=== PATIENT | male | born 1945 | race Caucasian/White ===

== ENCOUNTER 2023-01-16 20:00 | Outpatient (OUT) | payer MEDICARE, OTHER, SELFPAY | END 2023-01-16 20:01 | LOC: SLEEP 01-17 09:09 | PROVIDERS: PCP Internal Medicine; Visit Provider Internal Medicine | DX: G47.33 Obstructive sleep apnea (adult) (pediatric) (principal); G47.11 Idiopathic hypersomnia with long sleep time | CPT/HCPCS: 95811 ==

== ENCOUNTER 2023-07-12 15:40 | Outpatient (OUT) | payer MEDICARE, OTHER, SELFPAY ==
[2023-07-12 16:08] LABS: Estimated Average Glucose 151 mg/dL; Glycohemoglobin A1C 6.9 % (4.5-6.2)
== END 2023-07-12 15:41 | disposition home or self-care (01) ==
LOC: LAB 15:43
PROVIDERS: PCP Internal Medicine; Visit Provider Internal Medicine
DX: E11.65 Type 2 diabetes mellitus with hyperglycemia (principal)
CPT/HCPCS: 36415; 83036

== ENCOUNTER 2023-12-26 10:45 | Outpatient (OUT) | payer MEDICARE, OTHER, SELFPAY ==
[2023-12-26 11:32] LABS: Chol HDL Ratio 3.2; Cholesterol 179 mg/dL (<=200); HDL Cholesterol 56 mg/dL (40-60); Triglycerides 155 mg/dL (<=150)
[2023-12-26 11:56] LABS: Estimated Average Glucose 143 mg/dL; Glycohemoglobin A1C 6.6 % (4.5-6.2)
[2023-12-26 13:43] LABS: Microalbumin Urine Random <1.3 mg/dL (<=30.0)
== END 2023-12-26 10:46 | disposition home or self-care (01) ==
LOC: LAB 10:47
PROVIDERS: PCP Internal Medicine; Visit Provider Internal Medicine
DX: E11.65 Type 2 diabetes mellitus with hyperglycemia (principal); E78.00 Pure hypercholesterolemia, unspecified
CPT/HCPCS: 36415; 80061; 82043; 83036

== ENCOUNTER 2024-01-01 13:52 | Outpatient (OUT) | payer MEDICARE, OTHER, SELFPAY ==
--- NOTE | 2024-01-01 13:55 | CT_ITS ---
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 Axial, Coronal, and Sagittal images. Dose reduction techniques were achieved by using automated exposure control and/or adjustment of mA and/or kV according to patient size and/or use of iterative reconstruction technique. FINDINGS: LUNGS: Surgical changes from right upper lobe lobectomy. 4 mm nodule within right middle lobe, decreased in size. 6 mm nodule within lateral left costophrenic angle which has slightly increased in size. Stable mild scarring and atelectasis. PLEURA: No mass, effusion, or pneumothorax. VASCULATURE: No abnormality. NEDA: Stable right hilar surgical changes and calcified lymph nodes. MEDIASTINUM: No mass or adenopathy. CARDIAC: No enlargement, pericardial thickening, or significant calcification. Coronary artery calcifications: Mild. AORTA: No aneurysm or dissection. CHEST WALL: No mass or axillary adenopathy. BONES: No bone lesion or fracture. LIMITED ABDOMEN: No suspicious findings Limited images of the upper abdomen. OTHER: Negative. CT/CT chest wo con IMPRESSION: 1. Stable surgical changes from right upper lobe lobectomy. 2. Slight increase in size of a 6 mm nodule within left lower lobe lateral costophrenic angle (previously 4.5 mm). Follow-up CT chest in 6 months is recommended to document stability. 3. Interval decrease in size of a 4 mm nodule within right middle lobe. 4. Stable chronic changes and scarring. No appreciable acute infiltrates or lymphadenopathy. Electronically authenticated by: ARTURO JJ Date: 01/02/2024 09:55
== END 2024-01-01 13:53 | disposition home or self-care (01) ==
LOC: CT 13:52
PROVIDERS: PCP Internal Medicine; Visit Provider Internal Medicine
DX: C34.91 Malignant neoplasm of unspecified part of right bronchus or lung (principal); R91.8 Other nonspecific abnormal finding of lung field
CPT/HCPCS: 71250

== ENCOUNTER 2024-04-23 16:08 | Outpatient (OUT) | payer MEDICARE, OTHER, SELFPAY ==
--- OUTSIDE RECORDS SUMMARY | 2024-04-23 16:33 | XMS_ITS | CCD ---
Author Organization [facility] Care Team Providers Care Ophthalmic Dispenser Name Role Phone Tab Barfield DO Primary Care Provider SAMSA ., MELANIE Admitting Unavailable SAMSA ., MELANIE Attending Unavailable TYRESE, DR HOOD Primary Care Unavailable PARVIZ, DR ARTURO Quinn Consulting Unavailable SAMSA ., MELANIE Consulting Unavailable SAMSA ., MELANIE Admitting Unavailable SAMSA ., MELANIE Attending Unavailable DR TAB BARFIELD Primary Care Unavailable SAMSA ., MELANIE Consulting Unavailable SAMSA ., MELANIE Admitting Unavailable SAMSA ., MELANIE Attending Unavailable TYRESE, DR HOOD Primary Care Unavailable SAMSA ., MELANIE Consulting Unavailable SAMSA ., MELANIE Admitting Unavailable SAMSA ., MELANIE Attending Unavailable TYRESE, DR HOOD Primary Care Unavailable SAMSA ., MELANIE Consulting Unavailable SAMSA ., MELANIE Admitting Unavailable SAMSA ., MELANIE Attending Unavailable TYRESE, DR HOOD Primary Care Unavailable SAMSA ., MELANIE Consulting Unavailable DR TAB BARFIELD Primary Care Unavailable JOSÉ GODINEZ Consulting Unavailab mike RAMIN ., CHAKA Admitting Unavailable RAMIN ., CHAKA Attending Unavailable NEWBRITTANI, AZALEA Consulting Unavailable SAMSA ., MELANIE Admitting Unavailable SAMSA ., MELANIE Attending Unavailable DR TAB BARFIELD Primary Care Unavailable SAMSA ., MELANIE Consulting Unavailable SAMSA ., MELANIE Admitting Unavailable SAMSA ., MELANIE Attending Unavailable TYRESE, DR HOOD Primary Care Unavailable Tab Barfield Unavailable Tab Barfield DO Primary Care Provider Samsa DOMelanie P Unavailable DO Tab Barfield Primary Care Provider MD Jamar Wray Attending Provider [phone] Jamar Wray Admitting Unavailable Jamar Wray Attending Unavailable Tab Barfield Primary Care Unavailable Tab Barfield DO Primary Care Provider GABE BANERJEE Attending Unavailable TAB BARFIELD Primary Care Unavailable TAB BARFIELD Primary Care Unavailable TAB BARFIELD Primary Care Unavailable Allergies Allergy Classification Reported Allergen(s) Allergy Type Date of Onset Reaction(s) Facility (10 sources) Penicillins; Translations: [PENICILLINS] Drug Allergy 12-09-19 18 Swelling [facility] (1 source) Penicillins Drug allergy (disorder) 07-11-20 13 [facility] (3 sources) Penicillin Drug Allergy Unknown [employer] Other (16 sources) Penicillins (Antibiotic) Drug allergy Unknown [employer] Other (16 sources) Substance with penicillin structure and antibacterial mechanism of action (substance) Drug allergy Unknown [employer] Other (3 sources) patient allergy list reviewed by nurse or physicia Propensity to adverse reactions 12-20-19 Comment:Done [employer] Other (3 sources) Allergies Reconciled Propensity to adverse reactions Unknown [employer] Other (1 source) Penicillins Drug allergy (disorder) 06-22-20 [facility] Medications Current Medications Medication Drug Class(es) Dates Sig (Normalized) Sig (Original) [id number] 200 actuat albuterol 0.09 mg/actuat metered dose inhaler (8 sources) beta2-Adrenergic Agonist Start: 05-06-2021 take 2 puff(s) by inhalation every six hours as needed albuterol HFA (PROVENTIL HFA, VENTOLIN HFA) 90 mcg/actuation inhaler Inhale 2 Puffs as instructed every 6 hours as needed. 05/06/2021 Active Comment on above: Inhale 2 Puffs as in structed every 6 hours as needed. albuterol 0.833 mg/ml / ipratropium bromide 0.167 mg/ml inhalation solution (8 sources) Anticholinergic, beta2-Adrenergic Agonist Start: 02-25-2021 ipratropium-albu terol (DUONEB) 0.5 mg-3 mg(2.5 mg base)/3 mL nebu Inhale 3 mL as instructed. 02/25/2021 Active Comment on above: Inhale 3 mL as instr ucted. Albuterol-Budesonid e (1 source) Start: 12-22-2023 Albuterol-Budeso nide Active 2 INH INHALATION Four times daily 21.4 90 December 22, 2023 12:00am Needs 2 inhalers amLODIPine 5 mg oral tablet (20 sources) Dihydropyridine Calcium Channel Michael Start: 04-18-2017 End: 07-15-2021 take 5 mg by mouth once daily Amlodipine Active 5 MG PO Daily June 22, 2023 1:00am 24 hr buPROPion hydrochloride 150 mg extended release oral tablet (20 sources) Aminoketone Start: 12-21-2023 take 150 mg by mouth once daily in the morning Bupropion Hcl Active 150 MG PO Every morning December 21, 2023 12:00am Start: 04-18-2017 End: 07-15-2021 take 300 mg by mouth once daily Bupropion Hcl Discontinued 300 MG PO Daily April 18, 2017 12:00am July 15, 2021 10:38am buPROPion HCl 15 0 MG 1 tablet every morning Orally Once a day Active Contour Test - (20 sources) Start: 12-12-2022 Contour Test - Use to test home BS qd In Vitro daily for 30 days December, Active diclofenac sodium 75 mg delayed release oral tablet (20 sources) Nonsteroidal Anti-inflammatory Drug Start: 12-21-2023 take 75 mg by mouth twice daily Diclofenac Sodium Active 75 MG PO Twice daily December 21, 2023 12:00am Start: 04-18-2017 End: 01-02-2019 take 150 mg by mouth once daily Diclofenac Sodium Disc ontinued 150 MG PO Daily April 18, 2017 12:00am January 02, 2019 2:24pm take 1 tablet by maikol th every twelve hours Diclofenac Sodium 75 MG 1 tablet with food or milk Orally Twice a day Active escitalopram 10 mg oral tablet (20 sources) Serotonin Reuptake Inhibitor Start: 03-01-2020 take 1 tablet by mouth once daily at bedtime escitalopram oxalate (LEXAPRO) 10 mg tablet Take 10 mg by mouth daily at bedtime. 03/01/2020 Active Comment on above: Take 10 mg by mouth daily at bedtime. Fish Oils (20 sources) Fish Oil Active Fluticasone Propion-Salmeterol (20 sources) Corticosteroid, beta2-Adrenergic Agonist Start: 06-22-2023 Fluticasone Propion-Salmeterol Active 1 INH INHALATION Twice daily June 22, 2023 1:00am Start: 06-22-2023 Fluticasone Pr opion-Salmeterol Active 1 INH INHALATION Twice daily June 22, 2023 12:00am Start: 12-20-2022 take 1 puff(s) by in halation twice daily Advair Diskus 500-50 MCG/ACT 1 puff Inhalation Twice a day December, Active Start: 11-27-2021 take 1 dose by mouth twice daily fluticasone-salmeterol (ADVAIR, WIXELA) 250-50 mcg/dose inhaler INHALE 1 DOSE BY MOUTH TWICE DAILY 11/27/2021 Active Start: 11-27-2021 take 1 dose by mouth twice daily fluticasone-salmeterol (ADVAIR, WIXELA) 250-50 mcg/dose inhaler INHALE 1 DOSE BY MOUTH TWICE DAILY 0 11/27/2021 Active Comment on above: INHALE 1 DOSE BY MAIKOL TH TWICE DAILY levoFLOXacin 500 mg oral tablet (7 sources) Quinolone Antimicrobial Start: 06-20-20 take 1 tablet by mouth every twenty-four hours levoFLOXacin 500 MG 1 tablet Orally Once a day for 7 days Jun, Active losartan potassium 100 mg oral tablet (20 sources) Angiotensin 2 Receptor Michael Start: 04-18-20 losartan (COZAAR) 100 mg tablet 09/17/2017 Active metFORMIN hydrochloride 500 mg oral tablet (14 sources) Biguanide Start: 05-09-20 23 take 500 mg by mouth once daily Metformin Active 500 MG PO Daily June 22, 2023 1:00am mirtazapine 7.5 mg oral tablet (20 sources) Start: 03-25-20 20 take 1 tablet by mouth once daily at bedtime Mirtazapine (REMERON) 7.5 mg tablet Take 7.5 mg by mouth daily at bedtime. 03/25/2020 Active Comment on above: Take 7.5 mg by mouth daily at bedtime. montelukast 10 mg oral tablet (20 sources) Leukotriene Receptor Antagonist Start: 07-15-20 End: 11-30-19 montelukast (SINGULAIR) 10 mg tablet 03/05/2022 Active Multivitamin preparation (20 sources) Start: 04-18-20 take 1 tablet by mouth once daily Multivitamin Active 1 TAB PO Daily April 18, 2017 12:00am Start: 04-18-2017 take 1 tablet by maikol th once daily Multivitamin Active 1 TAB PO Daily April 17, 2017 11:00pm Multivitamin Act [place] perflutren lipid microspheres 1.3 mL in NaCl (PF) 0.9% 10 mL injection (DEFINITY) (5 sources) Start: 01-26-2023 End: 04-26-2024 perflutren lipid microspheres 1.3 mL in NaCl (PF) 0.9% 10 mL injection (DEFINITY) pravastatin sodium 80 mg oral tablet (20 sources) HMG-CoA Reductase Inhibitor Start: 04-18-2017 pravastatin (PRAVACHOL) 80 mg tablet 11/28/2017 Active take 1 tablet by maikol th every twenty-four hours Pravastatin Sodium 20 MG 1 tablet Orally Once a day for 30 day(s) Active semaglutide 3 mg oral tablet (4 sources) Start: 05-02-2023 Rybelsus 3 MG 1 tablet at least 30 minutes before first food, beverage or other oral medicine of the day Orally Once a day for 30 days Apr, Active 125 ml sodium chloride 9 mg/ml prefilled syringe (5 sources) Start: 01-26-2023 End: 04-26-2024 sodium chloride 0.9 % (flush) 10 mL (BD POSIFLUSH) tamsulosin hydrochloride 0.4 mg oral capsule (20 sources) alpha-Adrenergic Michael Start: 01-10-2023 tamsulosin (FLOMAX) 0.4 mg 01/10/2023 Active Start: 07-15-2021 take 0.4 mg by mouth once daily Tamsulosin Active 0.4 MG PO Daily July 15, 2021 1:00am Start: 11-21-2017 End: 04-05-2022 tamsulosin ER (FLOMAX) 0.4 m g cp24 twice daily. 0 11/21/2017 04/05/2022 Discontinued (Discontinued by Patient) Comment on above: twice daily. ubidecarenone 75 mg oral capsule (1 source) Start: 12-22-2023 Coenzyme Q10 (Ultra Coq10) 75 mg capsule Active 75 MG PO Daily December 22, 2023 12:00am Completed/Discontinued Medications Medication Drug Class(es) Dates Sig (Normalized) Sig (Original) Chlorpheniramine (3 sources) Histamine-1 Receptor Antagonist chlorpheniramine maleate (CHLOR-TABLET ORAL) Take by mouth. 0 Active Comment on above: Take by mouth. multivitamin tablet (3 sources) take 1 tablet by mouth once daily multivitamin tablet Take 1 tablet by mouth once daily. 0 Active Comment on above: Take 1 tablet by maikol once daily. [place] 6-Kwc-Zyi-Fish Oil (Fish Oil) 1,000 mg (120 mg-180 mg) Capsule (2 sources) Start: 04-18-2017 End: 01-02-2019 [place] 6-Zjx-Csi-Fish Oil (Fish Oil) 1,000 mg (120 mg-180 mg) Capsule Discontinued 1200 MG PO Daily April 18, 2017 12:00am January 02, 2019 2:24pm Start: 04-18-2017 End: 01-02-2019 [place] 0-Yiq-Aja-Fish Oil (Fi sh Oil) 1,000 mg (120 mg-180 mg) Capsule Discontinued 1200 MG PO Daily April 17, 2017 11:00pm January 02, 2019 1:24pm pramipexole dihydrochloride 0.125 mg oral tablet (5 sources) Nonergot Dopamine Agonist Start: 03-16-2023 End: 04-08-2024 take 1 tablet by mouth 2 hour(s) before bedtime pramipexole (MIRAPEX) 0.125 mg tablet TAKE 1 TABLET BY MOUTH 2 HOURS BEFORE BEDTIME 03/16/2023 04/08/2024 Discontinued Comment on above: TAKE 1 TABLET BY MAIKOL 2 HOURS BEFORE BEDTIME Turmeric extract (5 sources) Start: 06-22-2023 End: 12-21-2023 take 400 mg by mouth once daily Turmeric Discontinued 400 MG PO Daily June 22, 2023 1:00am December 21, 2023 9:07am Start: 06-22-2023 take 400 mg by mouth once daily Turmeric Active 400 MG PO Daily June 22, 2023 12:00am Start: 04-18-2017 End: 01-02-2019 Turmeric (Bulk) (Curcumin) 9 5 % Powder Discontinued 1 TAB MISCELLANE Daily April 18, 2017 12:00am January 02, 2019 2:24pm Start: 04-18-2017 End: 01-02-2019 Turmeric (Bulk) (Curcumin) 9 5 % Powder Discontinued 1 TAB MISCELLANE Daily April 17, 2017 11:00pm January 02, 2019 1:24pm End: 04-05-2022 TURMERIC ORAL Take by mouth. 0 04/05/2022 Discontinued (Discontinued by Patient) Comment on above: Take by mouth. Problems Active Problems Problem Classification Problem Date Documented Da te Episodic/Chronic Acute posthemorrhagic anemia (3 sources) Acute posthemorrhagic anemia; Translations: [Acute posthemorrhagic anemia] Episodic Anal and rectal conditions (20 sources) Rectal polyp; Translations: [Rectal polyp] Episodic Asthma (6 sources) Uncomplicated mild persistent asthma; Translations: [Mild persistent asthma, uncomplicated] Chronic Cancer of bronchus; lung (20 sources) Malignant neoplasm of upper lobe, bronchus or lung; Translations: [Malignant neoplasm of upper lobe, right bronchus or lung] Onset: 1 Chronic Cancer of prostate (20 sources) Malignant tumor of prostate; Translations: [Malignant neoplasm of prostate] Onset: 8 Chronic Cancer of rectum and anus (20 sources) Malignant tumor of rectum; Translations: [Malignant neoplasm of rectum] Onset: 7 Chronic Chronic kidney disease (20 sources) Chronic kidney disease stage 3A ; Translations: [Stage 3a chronic kidney disease] Onset: 9 12-21-2023 Chronic Chronic obstructive pulmonary disease and bronchiectasis (20 sources) Mucopurulent chronic bronchitis; Translations: [Mucopurulent chronic bronchitis] Onset: 9 Chronic Deficiency and other anemia (20 sources) Anemia due to chronic blood loss; Translations: [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 Deficiency and other anemia (4 sources) Iron deficiency anemia secondary to blood loss (chronic); Translations: [IRON DEFIC ANEMIA SEC BLD LOSS CHRN] Onset: 2 Chronic Diabetes mellitus with complications (20 sources) Type 2 diabetes mellitus; Translations: [Type 2 diabetes mellitus with hyperglycemia] Onset: 0 Chronic Diabetes mellitus without complication (3 sources) Type 2 diabetes mellitus without complication; Translations: [Diabetes mellitus without mention of complication, type II or unspecified type, not stated as uncontrolled] Chronic Disorders of lipid metabolism (8 sources) Mixed hyperlipidemia; Translations: [Mixed hyperlipidemia] Onset: 5 12-21-2023 Chronic Esophageal disorders (20 sources) Stricture of esophagus; Translations: [Esophageal obstruction] Chronic Esophageal disorders (3 sources) Esophageal disorders; Translations: [Gastro-esophageal reflux disease with esophagitis, without bleeding] Essential hypertension (20 sources) Essential hypertension; Translations: [Essential (primary) hypertension] Onset: 4 Chronic Gastrointestinal hemorrhage (3 sources) Hemorrhage of rectum and anus; Translations: [Hemorrhage of anus and rectum] Episodic Hyperplasia of prostate (20 sources) Nocturia due to benign prostatic hypertrophy; Translations: [Benign prostatic hyperplasia with lower urinary tract symptoms] Onset: 7 Chronic Hypertension with complications and secondary hypertension (6 sources) Malignant hypertensive chronic kidney disease; Translations: [Hypertensive chronic kidney disease with stage 1 through stage 4 chronic kidney disease, or unspecified chronic kidney disease] Onset: 9 Chronic Immunizations and screening for infectious disease (3 sources) Vaccination given; Translations: [Encounter for immunization] Episodic Joint disorders and dislocations; trauma-related (3 sources) Traumatic arthropathy of the ankle and/or foot; Translations: [Traumatic arthropathy, ankle and foot] Onset: 5 Chronic Miscellaneous mental health disorders (3 sources) Primary insomnia; Translations: [Primary insomnia] Chronic Mood disorders (20 sources) Recurrent major depressive episodes, mild ; Translations: [Major depressive disorder, recurrent, mild] Onset: 0 Resolved: 1 Chronic Neoplasms of unspecified nature or uncertain behavior (6 sources) Neoplastic disease of uncertain behavior; Translations: [Neoplasm of uncertain behavior of other specified sites] Onset: 0 Episodic Osteoarthritis (3 sources) Osteoarthritis; Translations: [Polyosteoarthritis, unspecified] Chronic Other aftercare (3 sources) Long-term current use of inhaled steroid; Translations: [USP (current) use of inhaled steroids] Episodic Other and unspecified benign neoplasm (20 sources) Tubulovillous adenoma of rectum; Translations: [Benign neoplasm of rectum] Episodic Other and unspecified benign neoplasm (3 sources) Benign neoplasm of colon; Translations: [Benign neoplasm of colon] Episodic Other and unspecified benign neoplasm (2 sources) History of polyp of colon; Translations: [Personal history of colonic polyps] 04-18-2017 Episodic Other diseases of kidney and ureters (3 sources) Disorder of kidney and/or ureter; Translations: [Other specified disorders of kidney and ureter] Chronic Other ear and sense organ disorders (3 sources) Sensorineural hearing loss, bilateral; Translations: [Sensorineural hearing loss, bilateral] Chronic Other ear and sense organ disorders (3 sources) Infective otitis externa; Translations: [Diffuse otitis externa, right ear] Episodic Other ear and sense organ disorders (2 sources) Diffuse otitis externa, left ear Episodic Other gastrointestinal disorders (3 sources) H/O: gastrointestinal disease; Translations: [Personal history of other diseases of the digestive system] Episodic Other gastrointestinal disorders (2 sources) Dysphagia; Translations: [Dysphagia, unspecified] 04-18-2017 Episodic Other hereditary and degenerative nervous system conditions (16 sources) Restless legs; Translations: [Restless legs syndrome] Chronic Other hereditary and degenerative nervous system conditions (1 source) Restless legs syndrome Chronic Other injuries and conditions due to external causes (3 sources) History of fall; Translations: [History of falling] Episodic Other lower respiratory disease (6 sources) Dyspnea; Translations: [Shortness of breath] Episodic Other lower respiratory disease (3 sources) Cough; Translations: [Cough, unspecified] Episodic Other lower respiratory disease (3 sources) Lung field abnormal; Translations: [Other nonspecific abnormal finding of lung field] Episodic Other lower respiratory disease (3 sources) Hypoxemia; Translations: [Hypoxemia] Episodic Other non-traumatic joint disorders (3 sources) 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; 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, ankle and foot] Onset: 4 Chronic Other nutritional; endocrine; and metabolic disorders (3 sources) Obesity; Translations: [Obesity, unspecified] Chronic Other nutritional; endocrine; and metabolic disorders (3 sources) Simple obesity ; Translations: [Other obesity due to excess calories] Onset: 7 Chronic Other nutritional; endocrine; and metabolic disorders (3 sources) Obese class I; Translations: [Body mass index (BMI) 32.0-32.9, adult] Onset: 7 Chronic Pleurisy; pneumothorax; pulmonary collapse (4 sources) Pleural effusion, not elsewhere classified; Translations: [Pleural effusion] Onset: 2 Episodic Pulmonary heart disease (20 sources) Pulmonary hypertension; Translations: [Pulmonary hypertension, unspecified] Onset: 3 Chronic Residual codes; unclassified (20 sources) Obstructive sleep apnea syndrome; Translations: [Obstructive sleep apnea (adult) (pediatric)] 12-21-2023 Chronic Residual codes; unclassified (8 sources) Obstructive sleep apnea (adult) (pediatric); Translations: [Obstructive sleep apnea (adult)(pediatric)] Onset: 2 Chronic Residual codes; unclassified (1 source) Idiopathic hypersomnia with long sleep time; Translations: [IDIO HYPERSOMNIA W/LONG SLEEP TIME] Onset: 2 Chronic Residual codes; unclassified (3 sources) Hypersomnia; Translations: [Hypersomnia, unspecified] Chronic Residual codes; unclassified (3 sources) Tobacco user; Translations: [Nondependent tobacco use disorder] Episodic Residual codes; unclassified (3 sources) Procedure not done; Translations: [Procedure and treatment not carried out because of patient's decision for unspecified reasons] Episodic Residual codes; unclassified (2 sources) Impaired exercise tolerance; Translations: [Other general symptoms and signs] 04-27-2023 Episodic Screening and history of mental health and substance abuse codes (6 sources) History of tobacco use; Translations: [Personal history of tobacco use, presenting hazards to health] Onset: 0 Episodic Substance-related disorders (6 sources) Tobacco user; Translations: [Nicotine dependence, cigarettes, in remission] Chronic Unclassified (3 sources) Long-term current use of drug therapy; Translations: [Long-term (current) use of other medications] Onset: 6 Unclassified (3 sources) Eosinophilia, unspecified; Translations: [Eosinophilia, unspecified] Unclassified (1 source) Encounter for screening for malignant neoplasm of colon; Translations: [Encounter for screening for malignant neoplasm of colon] Onset: 3 Past or Other Problems Problem Classification Problem Date Documented Date Episodic/Chronic Chronic kidney disease (1 source) Chronic kidney disease Deficiency and other anemia (3 sources) Anemia; Translations: [Anemia, unspecified] Onset: 9 Episodic Diabetes mellitus without complication (3 sources) Impaired fasting glycemia; Translations: [Impaired fasting glucose] Onset: 6 Episodic Fracture of lower limb (3 sources) Late effect of fracture of lower extremities; Translations: [Unspecified fracture of right calcaneus, sequela] Resolved: 0 Episodic Malaise and fatigue (3 sources) Malaise and fatigue; Translations: [Other malaise and fatigue] Onset: 8 Episodic Other and unspecified benign neoplasm (3 sources) Polyp of colon; Translations: [Polyp of colon] Resolved: 0 Episodic Other gastrointestinal disorders (3 sources) Diarrhea; Translations: [Diarrhea, unspecified] Resolved: 1 Episodic Other gastrointestinal disorders (3 sources) Pharyngeal dysphagia; Translations: [Dysphagia, pharyngoesophageal phase] Onset: 7 Episodic Other inflammatory condition of skin (3 sources) Generalized pruritus ; Translations: [Other pruritus] Onset: 8 Episodic Other lower respiratory disease (4 sources) Shortness of breath; Translations: [SHORTNESS OF BREATH] Onset: 2 Episodic Other lower respiratory disease (1 source) Solitary pulmonary nodule; Translations: [SOLITARY PULMONARY NODULE] Onset: 2 Episodic Other lower respiratory disease (3 sources) Solitary nodule of lung; Translations: [Solitary pulmonary nodule] Resolved: 2 Episodic Other nutritional; endocrine; and metabolic disorders (3 sources) Overweight; Translations: [Overweight] Onset: 7 Episodic Other nutritional; endocrine; and metabolic disorders (6 sources) Body mass index 25-29 - overweight; Translations: [Body mass index 29.0-29.9, adult] Onset: 7 Episodic Other screening for suspected conditions (not mental disorders or infectious disease) (3 sources) Raised prostate specific antigen; Translations: [Elevated prostate specific antigen [PSA]] Onset: 6 Episodic Other upper respiratory infections (3 sources) Acute upper respiratory infection; Translations: [Acute upper respiratory infections of unspecified site] Onset: 5 Episodic Residual codes; unclassified (3 sources) Requires influenza virus vaccination; Translations: [Need for prophylactic vaccination and inoculation, Influenza] Onset: 7 Episodic Residual codes; unclassified (1 source) Other general symptoms and signs; Translations: [Exercise intolerance] Onset: 3 Episodic Results Test Name Value Interpretation Reference Range Facility [facility] 03-29-2024 CNOV Office Visit ([facility] ) -- JACINTA ROBLES ([id number]) 1945 M Date Time Provider Department 03/29/24 2:00 PM GABE BANERJEE [facility] During your visit today, we recorded the following information about you: Temperature Pulse Respiration Blood pressure 98.5 degrees 72/minute 18/minute 121/69 Weight 93.6 kg Gabe Banerjee MD 04/09/2024 5:23 AM Addendum Radiation Oncology - Follow Up Note PATIENT NAME: Jacinta Robles PATIENT DIAGNOSIS/PATIENT IDENTIFICATION: Mr. Robles is a 78-year old gentleman with Stage IIIA, [id number] adenocarcinoma of the prostate; high recurrence risk (cT1c, PSA 5.7, GS 4+4=8/10). Prostate MRI showed no evidence of seminal vesicle invasion or extracapsular extension or pelvic lymphadenopathy. He completed a course of definitive EBRT on 03/30/2018 (7920 cGy in 44 fractions) with ADT (18 months). INTERVAL HISTORY/ROS: Mr. Robles returns to clinic today for routine follow-up approximately six years after the completion of his radiation treatments and one year since his last visit on 03/23/2023. In the interim, he denies any burning/discomfort with urination and notes nocturia once. He denies any trouble starting his stream or straining and notes no weakening of his stream or incomplete emptying or hematuria or incontinence/leakage. He reports regular bowel movements without pain or blood or diarrhea. He denies any nausea but does note fatigue with dyspnea on exertion. He is currently being monitored for a lesion in the left lung. His IPSS score today is 4/35 with QOL 2 ('mostly satisfied') and SHANNON score of NA/25. His most recent PSA drawn earlier this month on 03/20/2024 decreased to 0.21 ng/mL from previous value of 0.23 ng/mL approximately a year ago on 03/03/2023. He did have a PSA drawn while he was in [place] on 10/10/2023 which returned at 0.2 ng/mL. Date PSA (ng/mL) 10/31/2107 5.71 11/13/2017 Biopsy 12/25/2017 Started ADT 03/30/2018 Completed XRT 07/02/2018 <0.03 12/25/2018 <0.03 09/30/2019 <0.1 03/27/2020 0.03 03/23/2021 0.08 03/17/2022 0.18 09/29/2022 0.16 03/03/2023 0.23 10/10/2023 0.2 03/20/2024 0.21 He otherwise denies any recent fevers, chills, headaches, difficulty with speech/swallowing, chest pain/palpitations, abdominal pain, nausea, vomiting, change in bowel habits, difficulty with gait/balance, recent falls, etc. The remainder of the review of systems was performed and was otherwise noncontributory. ALLERGIES ALLERGIES Allergen Reactions Penicillins Swelling MEDICATIONS: Current Outpatient Medications: pramipexole (MIRAPEX) 0.125 mg tablet CONTOUR TEST STRIPS test strip tamsulosin (FLOMAX) 0.4 mg montelukast (SINGULAIR) 10 mg tablet ipratropium-albuterol (DUONEB) 0.5 mg-3 mg(2.5 mg base)/3 mL nebu albuterol HFA (PROVENTIL HFA, VENTOLIN HFA) 90 mcg/actuation inhaler fluticasone-salmeterol (ADVAIR, WIXELA) 250-50 mcg/dose inhaler escitalopram oxalate (LEXAPRO) 10 mg tablet Mirtazapine (REMERON) 7.5 mg tablet pravastatin (PRAVACHOL) 80 mg tablet losartan (COZAAR) 100 mg tablet amLODIPine (NORVASC) 5 mg tablet Current Facility-Administered Medications: perflutren lipid microspheres 1.3 mL in NaCl (PF) 0.9% 10 mL injection (DEFINITY) sodium chloride 0.9 % (flush) 10 mL (BD POSIFLUSH) PHYSICAL EXAM: GENERAL: elderly gentleman sitting in chair in no acute distress. VITALS: BP 121/69 Pulse 72 Temp 98.5 Resp 18 Wt 206 lb 5.6 oz (93.6kg) SpO2 97% KPS: 80 HEENT: NC/AT, anicteric sclera HEART: S1S2 LUNGS: non-labored breathing ABDOMEN: soft MUSCULOSKELETAL: no peripheral edema, moves all extremities. NEURO: no focal deficit; AANDO X3. ASSESSMENT AND PLAN: Mr. Robles is a 78-year old gentleman with Stage IIIA, [id number] adenocarcinoma of the prostate; high recurrence risk (cT1c, PSA 5.7, GS 4+4=8/10). Prostate MRI showed no evidence of seminal vesicle invasion or extracapsular extension or pelvic lymphadenopathy. He completed a course of definitive EBRT on 03/30/2018 (7920 cGy in 44 fractions) with ADT (18 months). Mr. Robles is doing well clinically approximately 6 years after the completion of his radiation treatments to the prostate with stable urinary function at this time. His PSA remains fairly stable as his most recent PSA drawn earlier this month on 03/20/2024 decreased to 0.21 ng/mL from previous value of 0.23 ng/mL approximately a year ago on 03/03/2023. He did have a PSA drawn while he was in [place] on 10/10/2023 which returned at 0.2 ng/mL. I will plan to see him back in approximately 1 year with repeat PSA. The patient is aware to contact the clinic in the interim should any questions or concerns arise. Thank you for allowing us to participate in the care of this patient. Signed by: Gabe Banerjee MD I spent a total of 20 minutes on the date of the service which inc (more content not included)... Normal [facility] PSA SerPl-mCncon 03-20-2024 Prostate specific Ag [Mass/Vol] 0.21 ng/mL Normal <2.60 [facility] Comment on above: Order Comment: Speci men Type: VENOUS BLOOD SPECIMEN Ordering Facility: [facility] Address: [address] [place] [place] [address] Result Comment: Raoul l PSA test methodology used is the Electrochemiluminescence Immunoassay by [employer]. Total PSA values by differing methodologies cannot be interchanged. Performed By: #### 2 [id number] #### [facility] CLIA [id number] [facility] [address] [id number] [address] [place] Glucose Glucometer (BldC) [M ass/Vol]Ordered By: Jamar Wray on 06-22-2023 Glucose [Mass/Vol] 142 mg/dL [facility] Comment on above: Random Glucose Refer ence Range is dependent on time and content of last meal. Glucose of more than 200 mg/dL in a nonstressed, ambulatory subject supports the diagnosis of Diabetes Mellitus. Glucose Poct Glucometerson 1 08-22-2022 Commemt1 Glu2: Cleaned Meter Normal [facility] Comment on above: Result Comment: PERF ORMED BY: [facility] [address] [place] [address] PATHOLOGIST OPERATIONS INSPECTOR KALIN ALCANTARA M.D. Performed By: #### G ADRIANA #### Point of Care testing , Glucose [Mass/Vol] 142 mg/dL Normal [facility] Comment on above: Result Comment: [place] Glucose Reference Range is dependent on time and content of last meal. Glucose of more than 200 mg/dL in a nonstressed, ambulatory subject supports the diagnosis of Diabetes Mellitus. Performed By: #### G ADRIANA #### Point of Care testing , Chandan 06-22-2023 L ------ Specimen: [id number] Received: 06/22/23 Status: RONEL Welsh Num: [id number] Spec Type: Surgical Subm Dr: Jamar Wray MD Tissues: A Colon Biopsy (ASC POLYP) B Colon Biopsy (TRANSVERSE POLYP) C Colon Biopsy (DESC POLYP) Procedures: HE/6, Gross/Micro L4/3 Age/ Patient Sex Location Account Attending Physician Jacinta Robles /[facility] [id number] Jamar Wray MD SPEC NUM: [id number] RECD: 06/22/23 STATUS: RONEL WELSH NUM: [id number] ROSETTA: 06/22/23- SUBM DR: Jamar Wray MD ENTERED: 06/22/[address] [facility] [address]: SPEC TYPE: Surgical DEPT: S ORDERED: HE/6, Gross/Micro L4/3 ORDERED: HE/6, Gross/Micro L4/3 Pathological Diagnosis A. Ascending colon polyp biopsy: - Tubular adenomatous polyp without high-grade dysplasia B. Transverse colon polyps biopsies: - Tubular adenomatous polyps in both fragments without high-grade features - Negative mucosal margins are also noted in both fragments C. Descending colon polyp biopsy: - Sessile serrated polyp in 1 examined mucosal fragment (6 mm) without glandular dysplasia identified Clinical Information Colon polyps Gross Description A. Received in formalin labeled with the patient's name, date of and ascending polyp is one cross tissue measuring 0.7 x 0.5 x 0.4 cm. Entirely submitted in one cassette labeled A1. B. Received in formalin labeled with the patient's name, date of and transverse Specimen: [id number] Received: 06/22/23 Status: RONEL Blaise Num: [id number] Spec Type: Surgical Subm Dr: Jamar Wray MD Tissues: A Colon Biopsy (ASC POLYP) B Colon Biopsy (TRANSVERSE POLYP) C Colon Biopsy (DESC POLYP) Procedures: HE/6, Gross/Micro L4/3 Patient: Jacinta Robles [id number] (Continued) Specimen: [id number] Received: 06/22/23 (Continued) Gross Description (Continued) Signed (signature on file) Jose G Perdue MD 06/23/23 1616 Specimen: [id number] Received: 06/22/23 Status: RONEL Welsh Num: [id number] Spec Type: Surgical Subm Dr: Jamar Wray MD Tissues: A Colon Biopsy (ASC POLYP) B Colon Biopsy (TRANSVERSE POLYP) C Colon Biopsy (DESC POLYP) Procedures: SOUMYA/Gabe, Gross/Micro L4/3 Patient: Jacinta Robles [id number] (Continued) Specimen: [id number] Received: 06/22/23 (Continued) Gross Description (Continued) polyps are two cross tissues measuring 0.8 x 0.4 x 0.3 cm and 0.8 x 0.5 x 0.4 cm. Entirely submitted in one cassette labeled B1. C. Received in formalin labeled with the patient's name, date of and descending polyp are multiple cross tissues and fecal material measuring 3.0 x 1.0 x 0.2 cm in aggregate. Entirely submitted in one cassette labeled C1. Microscopic Description A. Two H E slides reviewed. The microscopic examination confirms the diagnosis. B. Two H E slides reviewed. The microscopic examination confirms the diagnosis. C. Two H E slides reviewed. The microscopic examination confirms the diagnosis. CPT Codes 84124e3 Specimen: [id number] Received: 06/22/23 Status: RONEL Blaise Num: [id number] Spec Type: Surgical Subm Dr: Jamar Wray MD Tissues: A Colon Biopsy (ASC POLYP) B Colon Biopsy (TRANSVERSE POLYP) C Colon Biopsy (DESC POLYP) Procedures: HE/Gabe, Gross/Micro L4/3 Patient: TravisJacinta [id number] (Continued) Signed (signature on file) Jose G Perdue MD 06/23/23 1616 Normal [facility] No Panel InformationOrdered By: Jamar Wray on 06-22-2023 Bedside Glucose Comment Glu2: cleaned meter [facility] AMMONIA BLDon 04-27-2023 Ammonia (P) [Moles/Vol] 39 umol/L 16 - 60 umol/L [facility] Ammonia (P) [Moles/Vol] 11 umol/L Low 16 - 60 umol/L [facility] ARTERIAL BLOOD GASESon 04-27 Base deficit (BldA) [Moles/Vol] -7 mmol/L Low -2 - 0 mmol/L [facility] Calcium.ionized (Bld) [Mass/Vol] 1.26 mmol/L 1.08 - 1.30 mmol/L [facility] Calcium.ionized adjusted to pH 7.4 (BldA) [Moles/Vol] 1.21 mmol/L 1.08 - 1.30 mmol/L [facility] Carboxyhemoglobin (BldA) [Mass fraction] 0.2 % 0.0 - 2.0 % [facility] CO2 (Bld) [Partial pressure] 33 mm Hg Low 36 - 46 mm Hg [facility] CO2 adjusted to patient's actual temperature (Bld) [Partial pressure] 33 mmHg Low 36 - 46 mmHg [facility] Glucose [Mass/Vol] 139 mg/dL High 60 - 105 mg/dL [facility] HCO3 (Bld) [Moles/Vol] 17 mmol/L Low 22 - 26 mmol/L [facility] Hematocrit (Bld) [Volume fraction] 43.1 % 39.0 - 51.0 % [facility] Hemoglobin (Bld) [Mass/Vol] 14.0 g/dL 13.0 - 17.0 g/dL [facility] Lactate [Moles/Vol] 4.4 mmol/L High 0.5 - 2. 2 mmol/L [facility] Methemoglobin (Bld) [Mass fraction] 1.2 % 0.0 - 1.5 % [facility] Oxygen (Bld) [Partial pressure] 107 mm Hg High 85 - 95 mm Hg [facility] Oxygen adjusted to patient's actual temperature (Bld) [Partial pressure] 107 mmHg High 85 - 95 mmHg [facility] Oxyhemoglobin (BldA) [Mass fraction] 96 % 95 - 98 % [facility] Patient Position 10 min. Recovery [facility] pH (Bld) 7.34 [pH] Low 7.35 - 7.45 [facility] pH adjusted to patient's actual temperature (Bld) 7.34 Low 7.35 - 7.45 [facility] Potassium [Moles/Vol] 4.3 mmol/L 3.5 - 5.0 mmol/L [facility] Sodium [Moles/Vol] 144 mmol/L 136 - 144 mmol/L [facility] Base deficit (BldA) [Moles/Vol] -7 mmol/L Low -2 - 0 mmol/L [facility] Calcium.ionized (Bld) [Mass/Vol] 1.21 mmol/L 1.08 - 1.30 mmol/L [facility] Calcium.ionized adjusted to pH 7.4 (BldA) [Moles/Vol] 1.19 mmol/L 1.08 - 1.30 mmol/L [facility] Carboxyhemoglobin (BldA) [Mass fraction] 1.4 % 0.0 - 2.0 % [facility] CO2 (Bld) [Partial pressure] 30 mm Hg Low 36 - 46 mm Hg [facility] CO2 adjusted to patient's actual temperature (Bld) [Partial pressure] 30 mmHg Low 36 - 46 mmHg [facility] Glucose [Mass/Vol] 131 mg/dL High 60 - 105 mg/dL [facility] HCO3 (Bld) [Moles/Vol] 16 mmol/L Low 22 - 26 mmol/L [facility] Hematocrit (Bld) [Volume fraction] 42.9 % 39.0 - 51.0 % [facility] Hemoglobin (Bld) [Mass/Vol] 14.0 g/dL 13.0 - 17.0 g/dL [facility] Lactate [Moles/Vol] 4.9 mmol/L High 0.5 - 2. 2 mmol/L [facility] Methemoglobin (Bld) [Mass fraction] 1.0 % 0.0 - 1.5 % [facility] Oxygen (Bld) [Partial pressure] 109 mm Hg High 85 - 95 mm Hg [facility] Oxygen adjusted to patient's actual temperature (Bld) [Partial pressure] 109 mmHg High 85 - 95 mmHg [facility] Oxyhemoglobin (BldA) [Mass fraction] 96 % 95 - 98 % [facility] Patient Position 3 min. Recovery [facility] pH (Bld) 7.36 [pH] 7.35 - 7.45 [facility] pH adjusted to patient's actual temperature (Bld) 7.36 7.35 - 7.45 [facility] Potassium [Moles/Vol] 4.1 mmol/L 3.5 - 5.0 mmol/L [facility] Sodium [Moles/Vol] 141 mmol/L 136 - 144 mmol/L [facility] Base deficit (BldA) [Moles/Vol] -5 mmol/L Low -2 - 0 mmol/L [facility] Calcium.ionized (Bld) [Mass/Vol] 1.24 mmol/L 1.08 - 1.30 mmol/L [facility] Calcium.ionized adjusted to pH 7.4 (BldA) [Moles/Vol] 1.21 mmol/L 1.08 - 1.30 mmol/L [facility] Carboxyhemoglobin (BldA) [Mass fraction] 1.0 % 0.0 - 2.0 % [facility] CO2 (Bld) [Partial pressure] 36 mm Hg 36 - 46 mm Hg [facility] CO2 adjusted to patient's actual temperature (Bld) [Partial pressure] 36 mmHg 36 - 46 mmHg [facility] Glucose [Mass/Vol] 146 mg/dL High 60 - 105 mg/dL [facility] HCO3 (Bld) [Moles/Vol] 20 mmol/L Low 22 - 26 mmol/L [facility] Hematocrit (Bld) [Volume fraction] 44.6 % 39.0 - 51.0 % [facility] Hemoglobin (Bld) [Mass/Vol] 14.5 g/dL 13.0 - 17.0 g/dL [facility] Lactate [Moles/Vol] 3.6 mmol/L High 0.5 - 2. 2 mmol/L [facility] Methemoglobin (Bld) [Mass fraction] 1.2 % 0.0 - 1.5 % [facility] Oxygen (Bld) [Partial pressure] 69 mm Hg Low 85 - 95 mm Hg [facility] Oxygen adjusted to patient's actual temperature (Bld) [Partial pressure] 69 mmHg Low 85 - 95 mmHg [facility] Oxyhemoglobin (BldA) [Mass fraction] 91 % Low 95 - 98 % [facility] Patient Position 100W MAX [facility] pH (Bld) 7.35 [pH] 7.35 - 7.45 [facility] pH adjusted to patient's actual temperature (Bld) 7.35 7.35 - 7.45 [facility] Potassium [Moles/Vol] 4.9 mmol/L 3.5 - 5.0 mmol/L [facility] Sodium [Moles/Vol] 142 mmol/L 136 - 144 mmol/L [facility] Base deficit (BldA) [Moles/Vol] -4 mmol/L Low -2 - 0 mmol/L [facility] Calcium.ionized (Bld) [Mass/Vol] 1.23 mmol/L 1.08 - 1.30 mmol/L [facility] Carboxyhemoglobin (BldA) [Mass fraction] 1.2 % 0.0 - 2.0 % [facility] CO2 (Bld) [Partial pressure] 36 mm Hg 36 - 46 mm Hg [facility] CO2 adjusted to patient's actual temperature (Bld) [Partial pressure] 36 mmHg 36 - 46 mmHg [facility] Glucose [Mass/Vol] 138 mg/dL High 60 - 105 mg/dL [facility] HCO3 (Bld) [Moles/Vol] 20 mmol/L Low 22 - 26 mmol/L [facility] Hematocrit (Bld) [Volume fraction] 43.2 % 39.0 - 51.0 % [facility] Hemoglobin (Bld) [Mass/Vol] 14.1 g/dL 13.0 - 17.0 g/dL [facility] Lactate [Moles/Vol] 2.9 mmol/L High 0.5 - 2. 2 mmol/L [facility] Methemoglobin (Bld) [Mass fraction] 0.4 % 0.0 - 1.5 % [facility] Oxygen (Bld) [Partial pressure] 74 mm Hg Low 85 - 95 mm Hg [facility] Oxygen adjusted to patient's actual temperature (Bld) [Partial pressure] 74 mmHg Low 85 - 95 mmHg [facility] Oxyhemoglobin (BldA) [Mass fraction] 93 % Low 95 - 98 % [facility] pH (Bld) 7.37 [pH] 7.35 - 7.45 [facility] pH adjusted to patient's actual temperature (Bld) 7.37 7.35 - 7.45 [facility] Potassium [Moles/Vol] 4.7 mmol/L 3.5 - 5.0 mmol/L [facility] Sodium [Moles/Vol] 142 mmol/L 136 - 144 mmol/L [facility] Base deficit (BldA) [Moles/Vol] -7 mmol/L Low -2 - 0 mmol/L [facility] Calcium.ionized (Bld) [Mass/Vol] 1.21 mmol/L 1.08 - 1.30 mmol/L [facility] Calcium.ionized adjusted to pH 7.4 (BldA) [Moles/Vol] 1.18 mmol/L 1.08 - 1.30 mmol/L [facility] Carboxyhemoglobin (BldA) [Mass fraction] 0.9 % 0.0 - 2.0 % [facility] CO2 (Bld) [Partial pressure] 33 mm Hg Low 36 - 46 mm Hg [facility] CO2 adjusted to patient's actual temperature (Bld) [Partial pressure] 33 mmHg Low 36 - 46 mmHg [facility] Glucose [Mass/Vol] 142 mg/dL High 60 - 105 mg/dL [facility] HCO3 (Bld) [Moles/Vol] 17 mmol/L Low 22 - 26 mmol/L [facility] Hematocrit (Bld) [Volume fraction] 44.2 % 39.0 - 51.0 % [facility] Hemoglobin (Bld) [Mass/Vol] 14.4 g/dL 13.0 - 17.0 g/dL [facility] Lactate [Moles/Vol] 4.6 mmol/L High 0.5 - 2. 2 mmol/L [facility] Methemoglobin (Bld) [Mass fraction] 1.2 % 0.0 - 1.5 % [facility] Oxygen (Bld) [Partial pressure] 96 mm Hg High 85 - 95 mm Hg [facility] Oxygen adjusted to patient's actual temperature (Bld) [Partial pressure] 96 mmHg High 85 - 95 mmHg [facility] Oxyhemoglobin (BldA) [Mass fraction] 95 % 95 - 98 % [facility] Patient Position 1 min. Recovery [facility] pH (Bld) 7.34 [pH] Low 7.35 - 7.45 [facility] pH adjusted to patient's actual temperature (Bld) 7.34 Low 7.35 - 7.45 [facility] Potassium [Moles/Vol] 4.3 mmol/L 3.5 - 5.0 mmol/L [facility] Sodium [Moles/Vol] 141 mmol/L 136 - 144 mmol/L [facility] Base deficit (BldA) [Moles/Vol] -4 mmol/L Low -2 - 0 mmol/L [facility] Calcium.ionized (Bld) [Mass/Vol] 1.22 mmol/L 1.08 - 1.30 mmol/L [facility] Calcium.ionized adjusted to pH 7.4 (BldA) [Moles/Vol] 1.20 mmol/L 1.08 - 1.30 mmol/L [facility] Carboxyhemoglobin (BldA) [Mass fraction] 1.2 % 0.0 - 2.0 % [facility] CO2 (d) [Partial pressure] 35 mm Hg Low 36 - 46 mm Hg [facility] CO2 adjusted to patient's actual temperature (Bld) [Partial pressure] 35 mmHg Low 36 - 46 mmHg [facility] Glucose [Mass/Vol] 138 mg/dL High 60 - 105 mg/dL [facility] HCO3 (Bld) [Moles/Vol] 20 mmol/L Low 22 - 26 mmol/L [facility] Hematocrit (Bld) [Volume fraction] 42.0 % 39.0 - 51.0 % [facility] Hemoglobin (Bld) [Mass/Vol] 13.7 g/dL 13.0 - 17.0 g/dL [facility] Lactate [Moles/Vol] 1.8 mmol/L 0.5 - 2. 2 mmol/L [facility] Methemoglobin (Bld) [Mass fraction] 0.4 % 0.0 - 1.5 % [facility] Oxygen (Bld) [Partial pressure] 71 mm Hg Low 85 - 95 mm Hg [facility] Oxygen adjusted to patient's actual temperature (Bld) [Partial pressure] 71 mmHg Low 85 - 95 mmHg [facility] Oxyhemoglobin (BldA) [Mass fraction] 93 % Low 95 - 98 % [facility] Patient Position 60W [facility] pH (Bld) 7.38 [pH] 7.35 - 7.45 [facility] pH adjusted to patient's actual temperature (Bld) 7.38 7.35 - 7.45 [facility] Potassium [Moles/Vol] 4.5 mmol/L 3.5 - 5.0 mmol/L [facility] Sodium [Moles/Vol] 142 mmol/L 136 - 144 mmol/L [facility] Base deficit (BldA) [Moles/Vol] -5 mmol/L Low -2 - 0 mmol/L [facility] Calcium.ionized (Bld) [Mass/Vol] 1.16 mmol/L 1.08 - 1.30 mmol/L [facility] Calcium.ionized adjusted to pH 7.4 (BldA) [Moles/Vol] 1.15 mmol/L 1.08 - 1.30 mmol/L [facility] Carboxyhemoglobin (BldA) [Mass fraction] 1.4 % 0.0 - 2.0 % [facility] CO2 (Bld) [Partial pressure] 33 mm Hg Low 36 - 46 mm Hg [facility] CO2 adjusted to patient's actual temperature (Bld) [Partial pressure] 33 mmHg Low 36 - 46 mmHg [facility] Glucose [Mass/Vol] 134 mg/dL High 60 - 105 mg/dL [facility] HCO3 (Bld) [Moles/Vol] 19 mmol/L Low 22 - 26 mmol/L [facility] Hematocrit (Bld) [Volume fraction] 41.0 % 39.0 - 51.0 % [facility] Hemoglobin (Bld) [Mass/Vol] 13.3 g/dL 13.0 - 17.0 g/dL [facility] Lactate [Moles/Vol] 1.2 mmol/L 0.5 - 2. 2 mmol/L [facility] Methemoglobin (Bld) [Mass fraction] 1.9 % High 0.0 - 1.5 % [facility] Oxygen (Bld) [Partial pressure] 75 mm Hg Low 85 - 95 mm Hg [facility] Oxygen adjusted to patient's actual temperature (Bld) [Partial pressure] 75 mmHg Low 85 - 95 mmHg [facility] Oxyhemoglobin (BldA) [Mass fraction] 93 % Low 95 - 98 % [facility] Patient Position 40W [facility] pH (Bld) 7.38 [pH] 7.35 - 7.45 [facility] pH adjusted to patient's actual temperature (Bld) 7.38 7.35 - 7.45 [facility] Potassium [Moles/Vol] 4.0 mmol/L 3.5 - 5.0 mmol/L [facility] Sodium [Moles/Vol] 142 mmol/L 136 - 144 mmol/L [facility] Base deficit (BldA) [Moles/Vol] -7 mmol/L Low -2-0 [facility] Comment on above: Order Comment: Speci men Type: ARTERIAL BLOOD SPECIMEN Ordering Facility: [facility] Address: [address] [place], [place] [id number] Performed By: #### A LLBG #### [facility] CLIA [id number] [address] [place] [address] [place] Calcium.ionized (Bld) [Mass/Vol] 1.26 mmol/L Normal 1.08-1.30 [facility] Comment on above: Order Comment: Speci men Type: ARTERIAL BLOOD SPECIMEN Ordering Facility: [facility] Address: [address] [place] [address] Performed By: #### A LLBG #### [facility] CLIA [id number] [address] [place] [address] [place] Calcium.ionized adjusted to pH 7.4 (BldA) [Moles/Vol] 1.21 mmol/L Normal 1.08-1.30 [facility] Comment on above: Order Comment: Speci men Type: ARTERIAL BLOOD SPECIMEN Ordering Facility: [facility] Address: [address] [place], [place] [address] Performed By: #### A LLBG #### [facility] CLIA [id number] [address] [place] [address] [place] Carboxyhemoglobin (BldA) [Mass fraction] 0.2 % Normal 0.0-2.0 [facility] Comment on above: Order Comment: Speci men Type: ARTERIAL BLOOD SPECIMEN Ordering Facility: [facility] Address: [address] [place], [place] [address] Result Comment: Carb oxyhemoglobin Reference Range for Smokers: 2.0-8.0% Performed By: #### A LLBG #### [facility] CLIA [id number] [address] [place] [address] [place] CO2 (Bld) [Partial pressure] 33 mm Hg Low 36-46 [facility] Comment on above: Order Comment: Speci men Type: ARTERIAL BLOOD SPECIMEN Ordering Facility: [facility] Address: [address] Performed By: #### A LLBG #### [facility] CLIA [id number] [address] OF [facility] CO2 adjusted to patient's actual temperature (Bld) [Partial pressure] 33 mmHg Low 36-46 [facility] Comment on above: Order Comment: Speci men Type: ARTERIAL BLOOD SPECIMEN Ordering Facility: [facility] Address: [address] [place], [place] [address] Performed By: #### A LLBG #### [facility] CLIA [id number] [address] [place] [address] [place] Glucose [Mass/Vol] 139 mg/dL High 60-105 [facility] Comment on above: Order Comment: Speci men Type: ARTERIAL BLOOD SPECIMEN Ordering Facility: [facility] Address: [address] Performed By: #### A LLBG #### [facility] CLIA [id number] [address] [place] [address] [place] HCO3 (Bld) [Moles/Vol] 17 mmol/L Low 22-26 [facility] Comment on above: Order Comment: Speci men Type: ARTERIAL BLOOD SPECIMEN Ordering Facility: [facility] Address: [address] Performed By: #### A LLBG #### [facility] CLIA [id number] [address] [place] [address] [place] Hematocrit (Bld) [Volume fraction] 43.1 % Normal 39.0-51.0 [facility] Comment on above: Order Comment: Speci men Type: ARTERIAL BLOOD SPECIMEN Ordering Facility: [facility] Address: [address] [place], [place] [address] Performed By: #### A LLBG #### [facility] CLIA [id number] [address] [place] [address] [place] Hemoglobin (Bld) [Mass/Vol] 14.0 g/dL Normal 13.0-17.0 [facility] Comment on above: Order Comment: Speci men Type: ARTERIAL BLOOD SPECIMEN Ordering Facility: [facility] Address: [address] [place], [place] [address] Performed By: #### A LLBG #### [facility] CLIA [id number] [address] [place] [address] [place] Lactate [Moles/Vol] 4.4 mmol/L High 0.5-2.2 [facility] Comment on above: Order Comment: Speci men Type: ARTERIAL BLOOD SPECIMEN Ordering Facility: [facility] Address: [address] [place], [place] [address] Performed By: #### A LLBG #### [facility] CLIA [id number] [address] [place] [address] [place] Methemoglobin (Bld) [Mass fraction] 1.2 % Normal 0.0-1.5 [facility] Comment on above: Order Comment: Speci men Type: ARTERIAL BLOOD SPECIMEN Ordering Facility: [facility] Address: [address] [place] [address] Performed By: #### A LLBG #### [facility] CLIA [id number] [address] [place] [address] [place] Oxygen (Bld) [Partial pressure] 107 mm Hg High 85-95 [facility] Comment on above: Order Comment: Speci men Type: ARTERIAL BLOOD SPECIMEN Ordering Facility: [facility] Address: [address] Performed By: #### A LLBG #### [facility] CLIA [id number] [address] [place] Oxygen adjusted to patient's actual temperature (Bld) [Partial pressure] 107 mmHg High 85-95 [facility] Comment on above: Order Comment: Speci men Type: ARTERIAL BLOOD SPECIMEN Ordering Facility: [facility] Address: [address] [place], [place] [address] Performed By: #### A LLBG #### [facility] CLIA [id number] [address] [place] [address] [place] Oxyhemoglobin (BldA) [Mass fraction] 96 % Normal 95-98 [facility] Comment on above: Order Comment: Speci men Type: ARTERIAL BLOOD SPECIMEN Ordering Facility: [facility] Address: [address] [place], [place] [address] Performed By: #### A LLBG #### [facility] CLIA [id number] [address] [place] [address] [place] PATIENT POSITION-ICPET 10 min. Normal [facility] Comment on above: Order Comment: Speci men Type: ARTERIAL BLOOD SPECIMEN Ordering Facility: [facility] Address: [address] [place], [place] [address] Result Comment: Collins very Performed By: #### A LLBG #### [facility] CLIA [id number] [address] [place] [address] [place] pH (Bld) 7.34 [pH] Low 7.35-7.45 [facility] Comment on above: Order Comment: Speci men Type: ARTERIAL BLOOD SPECIMEN Ordering Facility: [facility] Address: [address] [place], [place] [address] Performed By: #### A LLBG #### [facility] CLIA [id number] [address] [id number] [address] [place] pH adjusted to patient's actual temperature (Bld) 7.34 Low 7.35-7.45 [facility] Comment on above: Order Comment: Speci men Type: ARTERIAL BLOOD SPECIMEN Ordering Facility: [facility] Address: [address] [place], [place] [address] Performed By: #### A LLBG #### [facility] CLIA [id number] [address] [place] [address] [place] Potassium [Moles/Vol] 4.3 mmol/L Normal 3.5-5.0 [facility] Comment on above: Order Comment: Speci men Type: ARTERIAL BLOOD SPECIMEN Ordering Facility: [facility] Address: [address] [place], [place] [address] Performed By: #### A LLBG #### [facility] CLIA [id number] [address] [place] [address] [place] Sodium [Moles/Vol] 144 mmol/L Normal 136-144 [facility] Comment on above: Order Comment: Speci men Type: ARTERIAL BLOOD SPECIMEN Ordering Facility: [facility] Address: [address] [place], [place] [address] Performed By: #### A LLBG #### [facility] CLIA [id number] [address] [place] [address] [place] Base deficit (BldA) [Moles/Vol] -7 mmol/L Low -2-0 [facility] Comment on above: Order Comment: Speci men Type: VENOUS BLOOD SPECIMEN Ordering Facility: [facility] Address: [address] [place], [place] [address] Performed By: #### 2 4344-4 #### [facility] CLIA [id number] [address] [place] [address] [place] Calcium.ionized adjusted to pH 7.4 (BldA) [Moles/Vol] 1.19 mmol/L Normal 1.08-1.30 [facility] Comment on above: Order Comment: Speci men Type: VENOUS BLOOD SPECIMEN Ordering Facility: [facility] Address: [address] Performed By: #### 2 4344-4 #### [facility] CLIA [id number] [address] [place] [address] [place] Carboxyhemoglobin (BldA) [Mass fraction] 1.4 % Normal 0.0-2.0 [facility] Comment on above: Order Comment: Speci men Type: VENOUS BLOOD SPECIMEN Ordering Facility: [facility] Address: [address] Result Comment: Carb oxyhemoglobin Reference Range for Smokers: 2.0-8.0% Performed By: #### 2 4344-4 #### [facility] CLIA [id number] [address] [place] [address] [place] CO2 (Bld) [Partial pressure] 30 mm Hg Low 36-46 [facility] Comment on above: Order Comment: Speci men Type: VENOUS BLOOD SPECIMEN Ordering Facility: [facility] Address: [address] Performed By: #### 2 4344-4 #### [facility] CLIA [id number] [address] [place] [address] [place] CO2 adjusted to patient's actual temperature (Bld) [Partial pressure] 30 mmHg Low 36-46 [facility] Comment on above: Order Comment: Speci men Type: VENOUS BLOOD SPECIMEN Ordering Facility: [facility] Address: [address] [place] [address] Performed By: #### 2 4344-4 #### [facility] CLIA [id number] [address] [place] [address] [place] Glucose [Mass/Vol] 131 mg/dL High 60-105 [facility] Comment on above: Order Comment: Speci men Type: VENOUS BLOOD SPECIMEN Ordering Facility: [facility] Address: [address] [place] [address] Performed By: #### 2 4344-4 #### [facility] CLIA [id number] [address] [place] [address] [place] HCO3 (Bld) [Moles/Vol] 16 mmol/L Low 22-26 [facility] Comment on above: Order Comment: Speci men Type: VENOUS BLOOD SPECIMEN Ordering Facility: [facility] Address: [address] Performed By: #### 2 4344-4 #### [facility] CLIA [id number] [address] [place] [address] [place] Hematocrit (Bld) [Volume fraction] 42.9 % Normal 39.0-51.0 [facility] Comment on above: Order Comment: Speci men Type: VENOUS BLOOD SPECIMEN Ordering Facility: [facility] Address: [address] Performed By: #### 2 4344-4 #### [facility] CLIA [id number] [address] [place] [address] [place] Hemoglobin (Bld) [Mass/Vol] 14.0 g/dL Normal 13.0-17.0 [facility] Comment on above: Order Comment: Speci men Type: VENOUS BLOOD SPECIMEN Ordering Facility: [facility] Address: [address] Performed By: #### 2 4344-4 #### [facility] CLIA [id number] [address] [place] [address] [place] Lactate [Moles/Vol] 4.9 mmol/L High 0.5-2.2 [facility] Comment on above: Order Comment: Speci men Type: VENOUS BLOOD SPECIMEN Ordering Facility: [facility] Address: [address] Performed By: #### 2 4344-4 #### [facility] CLIA [id number] [address] [place] [id number] [place] Methemoglobin (Bld) [Mass fraction] 1.0 % Normal 0.0-1.5 [facility] Comment on above: Order Comment: Speci men Type: VENOUS BLOOD SPECIMEN Ordering Facility: [facility] Address: [address] Performed By: #### 2 4344-4 #### [facility] CLIA [id number] [address] [place] [id number] [place] Oxygen (Bld) [Partial pressure] 109 mm Hg High 85-95 [facility] Comment on above: Order Comment: Speci men Type: VENOUS BLOOD SPECIMEN Ordering Facility: [facility] Address: [address] [place] [address] Performed By: #### 2 4344-4 #### [facility] CLIA [id number] [address] [place] [address] [place] Oxygen adjusted to patient's actual temperature (Bld) [Partial pressure] 109 mmHg High 85-95 [facility] Comment on above: Order Comment: Speci men Type: VENOUS BLOOD SPECIMEN Ordering Facility: [facility] Address: [address] [place], [place] [address] Performed By: #### 2 4344-4 #### [facility] CLIA [id number] [address] [place] [id number] [place] Oxyhemoglobin (BldA) [Mass fraction] 96 % Normal 95-98 [facility] Comment on above: Order Comment: Speci men Type: VENOUS BLOOD SPECIMEN Ordering Facility: [facility] Address: [address] [place] [address] Performed By: #### 2 4344-4 #### [facility] CLIA [id number] [address] [place] [id number] [place] pH (Bld) 7.36 [pH] Normal 7.35-7.45 [facility] Comment on above: Order Comment: Speci men Type: VENOUS BLOOD SPECIMEN Ordering Facility: [facility] Address: [address] Performed By: #### 2 4344-4 #### [facility] CLIA [id number] [address] [place] [address] [place] pH adjusted to patient's actual temperature (Bld) 7.36 Normal 7.35-7.45 [facility] Comment on above: Order Comment: Speci men Type: VENOUS BLOOD SPECIMEN Ordering Facility: [facility] Address: [address] Performed By: #### 2 4344-4 #### [facility] CLIA [id number] [address] [place] [address] [place] Potassium [Moles/Vol] 4.1 mmol/L Normal 3.5-5.0 [facility] Comment on above: Order Comment: Speci men Type: VENOUS BLOOD SPECIMEN Ordering Facility: [facility] Address: [address] Performed By: #### 2 4344-4 #### [facility] CLIA [id number] [address] [place] [address] [place] Sodium [Moles/Vol] 141 mmol/L Normal 136-144 [facility] Comment on above: Order Comment: Speci men Type: VENOUS BLOOD SPECIMEN Ordering Facility: [facility] Address: [address] [place] [address] Performed By: #### 2 4344-4 #### [facility] CLIA [id number] [address] [place] [address] [place] Base deficit (BldA) [Moles/Vol] -3 mmol/L Low -2 - 0 mmol/L [facility] Calcium.ionized (Bld) [Mass/Vol] 1.22 mmol/L 1.08 - 1.30 mmol/L [facility] Calcium.ionized adjusted to pH 7.4 (BldA) [Moles/Vol] 1.22 mmol/L 1.08 - 1.30 mmol/L [facility] Carboxyhemoglobin (BldA) [Mass fraction] 1.0 % 0.0 - 2.0 % [facility] CO2 (Bld) [Partial pressure] 34 mm Hg Low 36 - 46 mm Hg [facility] CO2 adjusted to patient's actual temperature (Bld) [Partial pressure] 34 mmHg Low 36 - 46 mmHg [facility] Glucose [Mass/Vol] 148 mg/dL High 60 - 105 mg/dL [facility] HCO3 (Bld) [Moles/Vol] 21 mmol/L Low 22 - 26 mmol/L [facility] Hematocrit (Bld) [Volume fraction] 41.3 % 39.0 - 51.0 % [facility] Hemoglobin (Bld) [Mass/Vol] 13.5 g/dL 13.0 - 17.0 g/dL [facility] Lactate [Moles/Vol] 0.9 mmol/L 0.5 - 2. 2 mmol/L [facility] Methemoglobin (Bld) [Mass fraction] 0.6 % 0.0 - 1.5 % [facility] Oxygen (Bld) [Partial pressure] 92 mm Hg 85 - 95 mm Hg [facility] Oxygen adjusted to patient's actual temperature (Bld) [Partial pressure] 92 mmHg 85 - 95 mmHg [facility] Oxyhemoglobin (BldA) [Mass fraction] 96 % 95 - 98 % [facility] Patient Position Sitting Baseline [facility] pH (Bld) 7.40 [pH] 7.35 - 7.45 [facility] pH adjusted to patient's actual temperature (Bld) 7.40 7.35 - 7.45 [facility] Potassium [Moles/Vol] 4.1 mmol/L 3.5 - 5.0 mmol/L [facility] Sodium [Moles/Vol] 140 mmol/L 136 - 144 mmol/L [facility] Base deficit (BldA) [Moles/Vol] -3 mmol/L Low -2 - 0 mmol/L [facility] Calcium.ionized (Bld) [Mass/Vol] 1.23 mmol/L 1.08 - 1.30 mmol/L [facility] Calcium.ionized adjusted to pH 7.4 (BldA) [Moles/Vol] 1.22 mmol/L 1.08 - 1.30 mmol/L [facility] Carboxyhemoglobin (BldA) [Mass fraction] 0.6 % 0.0 - 2.0 % [facility] CO2 (Bld) [Partial pressure] 35 mm Hg Low 36 - 46 mm Hg [facility] CO2 adjusted to patient's actual temperature (Bld) [Partial pressure] 35 mmHg Low 36 - 46 mmHg [facility] Glucose [Mass/Vol] 145 mg/dL High 60 - 105 mg/dL [facility] HCO3 (Bld) [Moles/Vol] 21 mmol/L Low 22 - 26 mmol/L [facility] Hematocrit (d) [Volume fraction] 42.3 % 39.0 - 51.0 % [facility] Hemoglobin (Bld) [Mass/Vol] 13.8 g/dL 13.0 - 17.0 g/dL [facility] Lactate [Moles/Vol] 1.0 mmol/L 0.5 - 2. 2 mmol/L [facility] Methemoglobin (Bld) [Mass fraction] 0.9 % 0.0 - 1.5 % [facility] Oxygen (Bld) [Partial pressure] 75 mm Hg Low 85 - 95 mm Hg [facility] Oxygen adjusted to patient's actual temperature (Bld) [Partial pressure] 75 mmHg Low 85 - 95 mmHg [facility] Oxyhemoglobin (BldA) [Mass fraction] 94 % Low 95 - 98 % [facility] Patient Position 20W [facility] pH (Bld) 7.39 [pH] 7.35 - 7.45 [facility] pH adjusted to patient's actual temperature (Bld) 7.39 7.35 - 7.45 [facility] Potassium [Moles/Vol] 4.3 mmol/L 3.5 - 5.0 mmol/L [facility] Sodium [Moles/Vol] 141 mmol/L 136 - 144 mmol/L [facility] Base deficit (BldA) [Moles/Vol] -7 mmol/L Low -2-0 [facility] Comment on above: Order Comment: Speci men Type: ARTERIAL BLOOD SPECIMEN Ordering Facility: [facility] Address: [address] [place] [id number] Performed By: #### A LLBG #### [facility] CLIA [id number] [address] [place] [address] [place] Calcium.ionized (Bld) [Mass/Vol] 1.21 mmol/L Normal 1.08-1.30 [facility] Comment on above: Order Comment: Speci men Type: ARTERIAL BLOOD SPECIMEN Ordering Facility: [facility] Address: [address] [place] [address] Performed By: #### A LLBG #### [facility] CLIA [id number] [address] [place] [address] [place] Calcium.ionized adjusted to pH 7.4 (BldA) [Moles/Vol] 1.18 mmol/L Normal 1.08-1.30 [facility] Comment on above: Order Comment: Speci men Type: ARTERIAL BLOOD SPECIMEN Ordering Facility: [facility] Address: [address] [place] [address] Performed By: #### A LLBG #### [facility] CLIA [id number] [address] [place] [address] [place] Carboxyhemoglobin (BldA) [Mass fraction] 0.9 % Normal 0.0-2.0 [facility] Comment on above: Order Comment: Speci men Type: ARTERIAL BLOOD SPECIMEN Ordering Facility: [facility] Address: [address] [place] [address] Result Comment: Carb oxyhemoglobin Reference Range for Smokers: 2.0-8.0% Performed By: #### A LLBG #### [facility] CLIA [id number] [address] [place] [address] [place] CO2 (Bld) [Partial pressure] 33 mm Hg Low 36-46 [facility] Comment on above: Order Comment: Speci men Type: ARTERIAL BLOOD SPECIMEN Ordering Facility: [facility] Address: [address] [place], [place] [address] Performed By: #### A LLBG #### [facility] CLIA [id number] [address] [place] [address] [place] CO2 adjusted to patient's actual temperature (Bld) [Partial pressure] 33 mmHg Low 36-46 [facility] Comment on above: Order Comment: Speci men Type: ARTERIAL BLOOD SPECIMEN Ordering Facility: [facility] Address: [address] Performed By: #### A LLBG #### [facility] CLIA [id number] [address] [place] [address] [place] Glucose [Mass/Vol] 142 mg/dL High 60-105 [facility] Comment on above: Order Comment: Speci men Type: ARTERIAL BLOOD SPECIMEN Ordering Facility: [facility] Address: [address] Performed By: #### A LLBG #### [facility] CLIA [id number] [address] [place] [address] [place] HCO3 (Bld) [Moles/Vol] 17 mmol/L Low 22-26 [facility] Comment on above: Order Comment: Speci men Type: ARTERIAL BLOOD SPECIMEN Ordering Facility: [facility] Address: [address] [place], [place] [address] Performed By: #### A LLBG #### [facility] CLIA [id number] [address] [place] [address] [place] Hematocrit (Bld) [Volume fraction] 44.2 % Normal 39.0-51.0 [facility] Comment on above: Order Comment: Speci men Type: ARTERIAL BLOOD SPECIMEN Ordering Facility: [facility] Address: [address] Performed By: #### A LLBG #### [facility] CLIA [id number] [address] [place] [address] [place] Hemoglobin (Bld) [Mass/Vol] 14.4 g/dL Normal 13.0-17.0 [facility] Comment on above: Order Comment: Speci men Type: ARTERIAL BLOOD SPECIMEN Ordering Facility: [facility] Address: [address] Performed By: #### A LLBG #### [facility] CLIA [id number] [address] [place] [address] [place] Lactate [Moles/Vol] 4.6 mmol/L High 0.5-2.2 [facility] Comment on above: Order Comment: Speci men Type: ARTERIAL BLOOD SPECIMEN Ordering Facility: [facility] Address: [address] Performed By: #### A LLBG #### [facility] CLIA [id number] [address] [place] [address] [place] Methemoglobin (Bld) [Mass fraction] 1.2 % Normal 0.0-1.5 [facility] Comment on above: Order Comment: Speci men Type: ARTERIAL BLOOD SPECIMEN Ordering Facility: [facility] Address: [address] Performed By: #### A LLBG #### [facility] CLIA [id number] [address] [place] [address] [place] Oxygen (Bld) [Partial pressure] 96 mm Hg High 85-95 [facility] Comment on above: Order Comment: Speci men Type: ARTERIAL BLOOD SPECIMEN Ordering Facility: [facility] Address: [address] Performed By: #### A LLBG #### [facility] CLIA [id number] [address] [place] [address] [place] Oxygen adjusted to patient's actual temperature (Bld) [Partial pressure] 96 mmHg High 85-95 [facility] Comment on above: Order Comment: Speci men Type: ARTERIAL BLOOD SPECIMEN Ordering Facility: [facility] Address: [address] [place] [address] Performed By: #### A LLBG #### [facility] CLIA [id number] [address] [place] [address] [place] Oxyhemoglobin (BldA) [Mass fraction] 95 % Normal 95-98 [facility] Comment on above: Order Comment: Speci men Type: ARTERIAL BLOOD SPECIMEN Ordering Facility: [facility] Address: [address] [place] [address] Performed By: #### A LLBG #### [facility] CLIA [id number] [address] [place] [address] [place] PATIENT POSITION-ICPET 1 min. Normal [facility] Comment on above: Order Comment: Speci men Type: ARTERIAL BLOOD SPECIMEN Ordering Facility: [facility] Address: [address] [place] [address] Result Comment: Collins very Performed By: #### A LLBG #### [facility] CLIA [id number] [address] [place] [address] [place] pH (Bld) 7.34 [pH] Low 7.35-7.45 [facility] Comment on above: Order Comment: Speci men Type: ARTERIAL BLOOD SPECIMEN Ordering Facility: [facility] Address: [address] [place], [place] [address] Performed By: #### A LLBG #### [facility] CLIA [id number] [address] [place] [address] [place] pH adjusted to patient's actual temperature (Bld) 7.34 Low 7.35-7.45 [facility] Comment on above: Order Comment: Speci men Type: ARTERIAL BLOOD SPECIMEN Ordering Facility: [facility] Address: [address] [place], [place] [address] Performed By: #### A LLBG #### [facility] CLIA [id number] [address] [place] [address] [place] Potassium [Moles/Vol] 4.3 mmol/L Normal 3.5-5.0 [facility] Comment on above: Order Comment: Speci men Type: ARTERIAL BLOOD SPECIMEN Ordering Facility: [facility] Address: [address] Performed By: #### A LLBG #### [facility] CLIA [id number] [address] [place] [address] [place] Sodium [Moles/Vol] 141 mmol/L Normal 136-144 [facility] Comment on above: Order Comment: Speci men Type: ARTERIAL BLOOD SPECIMEN Ordering Facility: [facility] Address: [address] Performed By: #### A LLBG #### [facility] CLIA [id number] [address] [place] [address] [place] Base deficit (BldA) [Moles/Vol] -5 mmol/L Low -2-0 [facility] Comment on above: Order Comment: Speci men Type: ARTERIAL BLOOD SPECIMEN Ordering Facility: [facility] Address: [address] Performed By: #### A LLBG #### [facility] CLIA [id number] [address] [place] [address] [place] Calcium.ionized (Bld) [Mass/Vol] 1.24 mmol/L Normal 1.08-1.30 [facility] Comment on above: Order Comment: Speci men Type: ARTERIAL BLOOD SPECIMEN Ordering Facility: [facility] Address: [address] [place] [address] Performed By: #### A LLBG #### [facility] CLIA [id number] [address] [place] [address] [place] Calcium.ionized adjusted to pH 7.4 (BldA) [Moles/Vol] 1.21 mmol/L Normal 1.08-1.30 [facility] Comment on above: Order Comment: Speci men Type: ARTERIAL BLOOD SPECIMEN Ordering Facility: [facility] Address: [address] [place], [place] [address] Performed By: #### A LLBG #### [facility] CLIA [id number] [address] [place] [address] [place] Carboxyhemoglobin (BldA) [Mass fraction] 1.0 % Normal 0.0-2.0 [facility] Comment on above: Order Comment: Speci men Type: ARTERIAL BLOOD SPECIMEN Ordering Facility: [facility] Address: [address] [place], [place] [address] Result Comment: Carb oxyhemoglobin Reference Range for Smokers: 2.0-8.0% Performed By: #### A LLBG #### [facility] CLIA [id number] [address] [place] [address] [place] CO2 (Bld) [Partial pressure] 36 mm Hg Normal 36-46 [facility] Comment on above: Order Comment: Speci men Type: ARTERIAL BLOOD SPECIMEN Ordering Facility: [facility] Address: [address] [place], [place] [address] Performed By: #### A LLBG #### [facility] CLIA [id number] [address] [place] CO2 adjusted to patient's actual temperature (Bld) [Partial pressure] 36 mmHg Normal 36-46 [facility] Comment on above: Order Comment: Speci men Type: ARTERIAL BLOOD SPECIMEN Ordering Facility: [facility] Address: [address] [place], [place] [address] Performed By: #### A LLBG #### [facility] CLIA [id number] [address] [place] [address] [place] Glucose [Mass/Vol] 146 mg/dL High 60-105 [facility] Comment on above: Order Comment: Speci men Type: ARTERIAL BLOOD SPECIMEN Ordering Facility: [facility] Address: [address] [place], [place] [address] Performed By: #### A LLBG #### [facility] CLIA [id number] [address] [place] [address] [place] HCO3 (Bld) [Moles/Vol] 20 mmol/L Low 22-26 [facility] Comment on above: Order Comment: Speci men Type: ARTERIAL BLOOD SPECIMEN Ordering Facility: [facility] Address: [address] [place], [place] [address] Performed By: #### A LLBG #### [facility] CLIA [id number] [address] [place] [address] [place] Hematocrit (Bld) [Volume fraction] 44.6 % Normal 39.0-51.0 [facility] Comment on above: Order Comment: Speci men Type: ARTERIAL BLOOD SPECIMEN Ordering Facility: [facility] Address: [address] [place], [place] [address] Performed By: #### A LLBG #### [facility] CLIA [id number] [address] [place] [address] [place] Hemoglobin (Bld) [Mass/Vol] 14.5 g/dL Normal 13.0-17.0 [facility] Comment on above: Order Comment: Speci men Type: ARTERIAL BLOOD SPECIMEN Ordering Facility: [facility] Address: [address] [place], [place] [address] Performed By: #### A LLBG #### [facility] CLIA [id number] [address] [place] [address] [place] Methemoglobin (Bld) [Mass fraction] 1.2 % Normal 0.0-1.5 [facility] Comment on above: Order Comment: Speci men Type: ARTERIAL BLOOD SPECIMEN Ordering Facility: [facility] Address: [address] [place], [place] [address] Performed By: #### A LLBG #### [facility] CLIA [id number] [address] [place] [address] [place] Oxygen (Bld) [Partial pressure] 69 mm Hg Low 85-95 [facility] Comment on above: Order Comment: Speci men Type: ARTERIAL BLOOD SPECIMEN Ordering Facility: [facility] Address: [address] [place] [address] Performed By: #### A LLBG #### [facility] CLIA [id number] [address] [place] [address] [place] Oxygen adjusted to patient's actual temperature (Bld) [Partial pressure] 69 mmHg Low 85-95 [facility] Comment on above: Order Comment: Speci men Type: ARTERIAL BLOOD SPECIMEN Ordering Facility: [facility] Address: [address] Performed By: #### A LLBG #### [facility] CLIA [id number] [address] [place] [address] [place] Oxyhemoglobin (BldA) [Mass fraction] 91 % Low 95-98 [facility] Comment on above: Order Comment: Speci men Type: ARTERIAL BLOOD SPECIMEN Ordering Facility: [facility] Address: [address] Performed By: #### A LLBG #### [facility] CLIA [id number] [address] [place] [address] [place] pH (Bld) 7.35 [pH] Normal 7.35-7.45 [facility] Comment on above: Order Comment: Speci men Type: ARTERIAL BLOOD SPECIMEN Ordering Facility: [facility] Address: [address] [place] [address] Performed By: #### A LLBG #### [facility] CLIA [id number] [address] [place] [address] [place] pH adjusted to patient's actual temperature (Bld) 7.35 Normal 7.35-7.45 [facility] Comment on above: Order Comment: Speci men Type: ARTERIAL BLOOD SPECIMEN Ordering Facility: [facility] Address: [address] [place] [address] Performed By: #### A LLBG #### [facility] CLIA [id number] [address] [place] [address] [place] Potassium [Moles/Vol] 4.9 mmol/L Normal 3.5-5.0 [facility] Comment on above: Order Comment: Speci men Type: ARTERIAL BLOOD SPECIMEN Ordering Facility: [facility] Address: [address] Performed By: #### A LLBG #### [facility] CLIA [id number] [facility] [place] [address] [place] Sodium [Moles/Vol] 142 mmol/L Normal 136-144 [facility] Comment on above: Order Comment: Speci men Type: ARTERIAL BLOOD SPECIMEN Ordering Facility: [facility] Address: [address] Performed By: #### A LLBG #### [facility] CLIA [id number] [address] [place] [address] [place] Base deficit (BldA) [Moles/Vol] -4 mmol/L Low -2-0 [facility] Comment on above: Order Comment: Speci men Type: VENOUS BLOOD SPECIMEN Ordering Facility: [facility] Address: [address] Performed By: #### 2 4344-4 #### [facility] CLIA [id number] [address] [place] [address] [place] Calcium.ionized (Bld) [Mass/Vol] 1.23 mmol/L Normal 1.08-1.30 [facility] Comment on above: Order Comment: Speci men Type: VENOUS BLOOD SPECIMEN Ordering Facility: [facility] Address: [address] [place], [place] [address] Performed By: #### 2 4344-4 #### [facility] CLIA [id number] [address] [place] [address] [place] Carboxyhemoglobin (BldA) [Mass fraction] 1.2 % Normal 0.0-2.0 [facility] Comment on above: Order Comment: Speci men Type: VENOUS BLOOD SPECIMEN Ordering Facility: [facility] Address: [address] Result Comment: Carb oxyhemoglobin Reference Range for Smokers: 2.0-8.0% Performed By: #### 2 4344-4 #### [facility] CLIA [id number] [address] [facility] [place] [address] [place] CO2 (Bld) [Partial pressure] 36 mm Hg Normal 36-46 [facility] Comment on above: Order Comment: Speci men Type: VENOUS BLOOD SPECIMEN Ordering Facility: [facility] Address: [address] Performed By: #### 2 4344-4 #### [facility] CLIA [id number] [address] [place] [address] [place] CO2 adjusted to patient's actual temperature (Bld) [Partial pressure] 36 mmHg Normal 36-46 [facility] Comment on above: Order Comment: Speci men Type: VENOUS BLOOD SPECIMEN Ordering Facility: [facility] Address: [address] [place] [address] Performed By: #### 2 4344-4 #### [facility] CLIA [id number] [address] [place] [address] [place] Glucose [Mass/Vol] 138 mg/dL High 60-105 [facility] Comment on above: Order Comment: Speci men Type: VENOUS BLOOD SPECIMEN Ordering Facility: [facility] Address: [address] Performed By: #### 2 4344-4 #### [facility] CLIA [id number] [address] [place] [address] [place] HCO3 (Bld) [Moles/Vol] 20 mmol/L Low 22-26 [facility] Comment on above: Order Comment: Speci men Type: VENOUS BLOOD SPECIMEN Ordering Facility: [facility] Address: [address] Performed By: #### 2 4344-4 #### [facility] CLIA [id number] [address] [place] [address] [place] Hematocrit (Bld) [Volume fraction] 43.2 % Normal 39.0-51.0 [facility] Comment on above: Order Comment: Speci men Type: VENOUS BLOOD SPECIMEN Ordering Facility: [facility] Address: [address] Performed By: #### 2 4344-4 #### [facility] CLIA [id number] [address] [place] [address] [place] Hemoglobin (Bld) [Mass/Vol] 14.1 g/dL Normal 13.0-17.0 [facility] Comment on above: Order Comment: Speci men Type: VENOUS BLOOD SPECIMEN Ordering Facility: [facility] Address: [address] Performed By: #### 2 4344-4 #### [facility] CLIA [id number] [address] [place] [address] [place] Lactate [Moles/Vol] 2.9 mmol/L High 0.5-2.2 [facility] Comment on above: Order Comment: Speci men Type: VENOUS BLOOD SPECIMEN Ordering Facility: [facility] Address: [address] Performed By: #### 2 4344-4 #### [facility] CLIA [id number] [address] [place] [address] [place] Methemoglobin (Bld) [Mass fraction] 0.4 % Normal 0.0-1.5 [facility] Comment on above: Order Comment: Speci men Type: VENOUS BLOOD SPECIMEN Ordering Facility: [facility] Address: [address] Performed By: #### 2 4344-4 #### [facility] CLIA [id number] [address] [place] [address] [place] Oxygen (Bld) [Partial pressure] 74 mm Hg Low 85-95 [facility] Comment on above: Order Comment: Speci men Type: VENOUS BLOOD SPECIMEN Ordering Facility: [facility] Address: [address] [place], [place] [address] Performed By: #### 2 4344-4 #### [facility] CLIA [id number] [address] [place] [address] [place] Oxygen adjusted to patient's actual temperature (Bld) [Partial pressure] 74 mmHg Low 85-95 [facility] Comment on above: Order Comment: Speci men Type: VENOUS BLOOD SPECIMEN Ordering Facility: [facility] Address: [address] [place] [address] Performed By: #### 2 4344-4 #### [facility] CLIA [id number] [address] [place] [address] [place] Oxyhemoglobin (BldA) [Mass fraction] 93 % Low 95-98 [facility] Comment on above: Order Comment: Speci men Type: VENOUS BLOOD SPECIMEN Ordering Facility: [facility] Address: [address] [place], [place] [address] Performed By: #### 2 4344-4 #### [facility] CLIA [id number] [address] [place] [address] [place] pH (Bld) 7.37 [pH] Normal 7.35-7.45 [facility] Comment on above: Order Comment: Speci men Type: VENOUS BLOOD SPECIMEN Ordering Facility: [facility] Address: [address] [place], [place] [address] Performed By: #### 2 4344-4 #### [facility] CLIA [id number] [address] [place] [address] [place] pH adjusted to patient's actual temperature (Bld) 7.37 Normal 7.35-7.45 [facility] Comment on above: Order Comment: Speci men Type: VENOUS BLOOD SPECIMEN Ordering Facility: [facility] Address: [address] Performed By: #### 2 4344-4 #### [facility] CLIA [id number] [address] [place] [address] [place] Potassium [Moles/Vol] 4.7 mmol/L Normal 3.5-5.0 [facility] Comment on above: Order Comment: Speci men Type: VENOUS BLOOD SPECIMEN Ordering Facility: [facility] Address: [address] Performed By: #### 2 4344-4 #### [facility] CLIA [id number] [address] [place] [address] [place] Sodium [Moles/Vol] 142 mmol/L Normal 136-144 [facility] Comment on above: Order Comment: Speci men Type: VENOUS BLOOD SPECIMEN Ordering Facility: [facility] Address: [address] Performed By: #### 2 4344-4 #### [facility] CLIA [id number] [address] [place] [address] [place] Base deficit (BldA) [Moles/Vol] -4 mmol/L Low -2-0 [facility] Comment on above: Order Comment: Speci men Type: ARTERIAL BLOOD SPECIMEN Ordering Facility: [facility] Address: [address] Performed By: #### A LLBG #### [facility] CLIA [id number] [address] [place] [address] [place] Calcium.ionized (Bld) [Mass/Vol] 1.22 mmol/L Normal 1.08-1.30 [facility] Comment on above: Order Comment: Speci men Type: ARTERIAL BLOOD SPECIMEN Ordering Facility: [facility] Address: [address] Performed By: #### A LLBG #### [facility] CLIA [id number] [address] [place] [address] [place] Calcium.ionized adjusted to pH 7.4 (BldA) [Moles/Vol] 1.20 mmol/L Normal 1.08-1.30 [facility] Comment on above: Order Comment: Speci men Type: ARTERIAL BLOOD SPECIMEN Ordering Facility: [facility] Address: [address] [place] [address] Performed By: #### A LLBG #### [facility] CLIA [id number] [address] [place] [address] [place] Carboxyhemoglobin (BldA) [Mass fraction] 1.2 % Normal 0.0-2.0 [facility] Comment on above: Order Comment: Speci men Type: ARTERIAL BLOOD SPECIMEN Ordering Facility: [facility] Address: [address] [place], [place] [address] Result Comment: Carb oxyhemoglobin Reference Range for Smokers: 2.0-8.0% Performed By: #### A LLBG #### [facility] CLIA [id number] [address] [place] [address] [place] CO2 (Bld) [Partial pressure] 35 mm Hg Low 36-46 [facility] Comment on above: Order Comment: Speci men Type: ARTERIAL BLOOD SPECIMEN Ordering Facility: [facility] Address: [address] [place] [address] Performed By: #### A LLBG #### [facility] CLIA [id number] [address] [place] [address] [place] CO2 adjusted to patient's actual temperature (Bld) [Partial pressure] 35 mmHg Low 36-46 [facility] Comment on above: Order Comment: Speci men Type: ARTERIAL BLOOD SPECIMEN Ordering Facility: [facility] Address: [address] [place], [place] [address] Performed By: #### A LLBG #### [facility] CLIA [id number] [address] [place] [address] [place] Glucose [Mass/Vol] 138 mg/dL High 60-105 [facility] Comment on above: Order Comment: Speci men Type: ARTERIAL BLOOD SPECIMEN Ordering Facility: [facility] Address: [address] [place] [address] Performed By: #### A LLBG #### [facility] CLIA [id number] [address] [place] [address] [place] HCO3 (Bld) [Moles/Vol] 20 mmol/L Low 22-26 [facility] Comment on above: Order Comment: Speci men Type: ARTERIAL BLOOD SPECIMEN Ordering Facility: [facility] Address: [address] [place] [address] Performed By: #### A LLBG #### [facility] CLIA [id number] [address] [place] [address] [place] Hematocrit (Bld) [Volume fraction] 42.0 % Normal 39.0-51.0 [facility] Comment on above: Order Comment: Speci men Type: ARTERIAL BLOOD SPECIMEN Ordering Facility: [facility] Address: [address] [place], [place] [address] Performed By: #### A LLBG #### [facility] CLIA [id number] [address] [place] [address] [place] Hemoglobin (Bld) [Mass/Vol] 13.7 g/dL Normal 13.0-17.0 [facility] Comment on above: Order Comment: Speci men Type: ARTERIAL BLOOD SPECIMEN Ordering Facility: [facility] Address: [address] [place], [place] [address] Performed By: #### A LLBG #### [facility] CLIA [id number] [address] [place] [id number] [place] Lactate [Moles/Vol] 1.8 mmol/L Normal 0.5-2.2 [facility] Comment on above: Order Comment: Speci men Type: ARTERIAL BLOOD SPECIMEN Ordering Facility: [facility] Address: [address] Performed By: #### A LLBG #### [facility] CLIA [id number] [address] [place] [address] [place] Methemoglobin (Bld) [Mass fraction] 0.4 % Normal 0.0-1.5 [facility] Comment on above: Order Comment: Speci men Type: ARTERIAL BLOOD SPECIMEN Ordering Facility: [facility] Address: [address] Performed By: #### A LLBG #### [facility] CLIA [id number] [address] [place] [address] [place] Oxygen (Bld) [Partial pressure] 71 mm Hg Low 85-95 [facility] Comment on above: Order Comment: Speci men Type: ARTERIAL BLOOD SPECIMEN Ordering Facility: [facility] Address: [address] Performed By: #### A LLBG #### [facility] CLIA [id number] [address] [place] [address] [place] Oxygen adjusted to patient's actual temperature (Bld) [Partial pressure] 71 mmHg Low 85-95 [facility] Comment on above: Order Comment: Speci men Type: ARTERIAL BLOOD SPECIMEN Ordering Facility: [facility] Address: [address] [place] [address] Performed By: #### A LLBG #### [facility] CLIA [id number] [address] [place] [address] [place] Oxyhemoglobin (BldA) [Mass fraction] 93 % Low 95-98 [facility] Comment on above: Order Comment: Speci men Type: ARTERIAL BLOOD SPECIMEN Ordering Facility: [facility] Address: [address] [place] [address] Performed By: #### A LLBG #### [facility] CLIA [id number] [address] [place] [address] [place] PATIENT POSITION-ICPET 60W Normal [facility] Comment on above: Order Comment: Speci men Type: ARTERIAL BLOOD SPECIMEN Ordering Facility: [facility] Address: [address] [place] [address] Performed By: #### A LLBG #### [facility] CLIA [id number] [address] [place] [address] [place] pH (Bld) 7.38 [pH] Normal 7.35-7.45 [facility] Comment on above: Order Comment: Speci men Type: ARTERIAL BLOOD SPECIMEN Ordering Facility: [facility] Address: [address] [place] [address] Performed By: #### A LLBG #### [facility] CLIA [id number] [address] [place] [address] [place] pH adjusted to patient's actual temperature (Bld) 7.38 Normal 7.35-7.45 [facility] Comment on above: Order Comment: Speci men Type: ARTERIAL BLOOD SPECIMEN Ordering Facility: [facility] Address: [address] [place], [place] [address] Performed By: #### A LLBG #### [facility] CLIA [id number] [address] [place] [address] [place] Potassium [Moles/Vol] 4.5 mmol/L Normal 3.5-5.0 [facility] Comment on above: Order Comment: Speci men Type: ARTERIAL BLOOD SPECIMEN Ordering Facility: [facility] Address: [address] [place], [place] [address] Performed By: #### A LLBG #### [facility] CLIA [id number] [address] [place] [address] [place] Sodium [Moles/Vol] 142 mmol/L Normal 136-144 [facility] Comment on above: Order Comment: Speci men Type: ARTERIAL BLOOD SPECIMEN Ordering Facility: [facility] Address: [address] Performed By: #### A LLBG #### [facility] CLIA [id number] [address] [place] [address] [place] Base deficit (BldA) [Moles/Vol] -5 mmol/L Low -2-0 [facility] Comment on above: Order Comment: Speci men Type: ARTERIAL BLOOD SPECIMEN Ordering Facility: [facility] Address: [address] Performed By: #### A LLBG #### [facility] CLIA [id number] [address] [place] [address] [place] Calcium.ionized (Bld) [Mass/Vol] 1.16 mmol/L Normal 1.08-1.30 [facility] Comment on above: Order Comment: Speci men Type: ARTERIAL BLOOD SPECIMEN Ordering Facility: [facility] Address: [address] [place], [place] [address] Performed By: #### A LLBG #### [facility] CLIA [id number] [address] [place] [address] [place] Calcium.ionized adjusted to pH 7.4 (BldA) [Moles/Vol] 1.15 mmol/L Normal 1.08-1.30 [facility] Comment on above: Order Comment: Speci men Type: ARTERIAL BLOOD SPECIMEN Ordering Facility: [facility] Address: [address] [place] [address] Performed By: #### A LLBG #### [facility] CLIA [id number] [address] [place] [address] [place] Carboxyhemoglobin (BldA) [Mass fraction] 1.4 % Normal 0.0-2.0 [facility] Comment on above: Order Comment: Speci men Type: ARTERIAL BLOOD SPECIMEN Ordering Facility: [facility] Address: [address] [place], [place] [id number] Result Comment: Carb oxyhemoglobin Reference Range for Smokers: 2.0-8.0% Performed By: #### A LLBG #### [facility] CLIA [id number] [address] [place] [address] [place] CO2 (Bld) [Partial pressure] 33 mm Hg Low 36-46 [facility] Comment on above: Order Comment: Speci men Type: ARTERIAL BLOOD SPECIMEN Ordering Facility: [facility] Address: [address] Performed By: #### A LLBG #### [facility] CLIA [id number] [address] [place] [address] [place] CO2 adjusted to patient's actual temperature (Bld) [Partial pressure] 33 mmHg Low 36-46 [facility] Comment on above: Order Comment: Speci men Type: ARTERIAL BLOOD SPECIMEN Ordering Facility: [facility] Address: [address] Performed By: #### A LLBG #### [facility] CLIA [id number] [address] [place] [address] [place] Glucose [Mass/Vol] 134 mg/dL High 60-105 [facility] Comment on above: Order Comment: Speci men Type: ARTERIAL BLOOD SPECIMEN Ordering Facility: [facility] Address: [address] [place] [address] Performed By: #### A LLBG #### [facility] CLIA [id number] [address] [place] [address] [place] HCO3 (Bld) [Moles/Vol] 19 mmol/L Low 22-26 [facility] Comment on above: Order Comment: Speci men Type: ARTERIAL BLOOD SPECIMEN Ordering Facility: [facility] Address: [address] Performed By: #### A LLBG #### [facility] CLIA [id number] [address] [place] [address] [place] Hematocrit (Bld) [Volume fraction] 41.0 % Normal 39.0-51.0 [facility] Comment on above: Order Comment: Speci men Type: ARTERIAL BLOOD SPECIMEN Ordering Facility: [facility] Address: [address] [place] [address] Performed By: #### A LLBG #### [facility] CLIA [id number] [address] [place] [address] [place] Hemoglobin (Bld) [Mass/Vol] 13.3 g/dL Normal 13.0-17.0 [facility] Comment on above: Order Comment: Speci men Type: ARTERIAL BLOOD SPECIMEN Ordering Facility: [facility] Address: [address] [place] [address] Performed By: #### A LLBG #### [facility] CLIA [id number] [address] [place] [address] [place] Lactate [Moles/Vol] 1.2 mmol/L Normal 0.5-2.2 [facility] Comment on above: Order Comment: Speci men Type: ARTERIAL BLOOD SPECIMEN Ordering Facility: [facility] Address: [address] [place], [place] [address] Performed By: #### A LLBG #### [facility] CLIA [id number] [address] [place] [address] [place] Methemoglobin (Bld) [Mass fraction] 1.9 % High 0.0-1.5 [facility] Comment on above: Order Comment: Speci men Type: ARTERIAL BLOOD SPECIMEN Ordering Facility: [facility] Address: [address] [place], [place] [address] Performed By: #### A LLBG #### [facility] CLIA [id number] [address] [place] [address] [place] Oxygen (Bld) [Partial pressure] 75 mm Hg Low 85-95 [facility] Comment on above: Order Comment: Speci men Type: ARTERIAL BLOOD SPECIMEN Ordering Facility: [facility] Address: [address] Performed By: #### A LLBG #### [facility] CLIA [id number] [address] [place] [address] [place] Oxygen adjusted to patient's actual temperature (Bld) [Partial pressure] 75 mmHg Low 85-95 [facility] Comment on above: Order Comment: Speci men Type: ARTERIAL BLOOD SPECIMEN Ordering Facility: [facility] Address: [address] Performed By: #### A LLBG #### [facility] CLIA [id number] [address] [place] [address] [place] Oxyhemoglobin (BldA) [Mass fraction] 93 % Low 95-98 [facility] Comment on above: Order Comment: Speci men Type: ARTERIAL BLOOD SPECIMEN Ordering Facility: [facility] Address: [address] Performed By: #### A LLBG #### [facility] CLIA [id number] [address] [place] [address] [place] pH (Bld) 7.38 [pH] Normal 7.35-7.45 [facility] Comment on above: Order Comment: Speci men Type: ARTERIAL BLOOD SPECIMEN Ordering Facility: [facility] Address: [address] [place] [address] Performed By: #### A LLBG #### [facility] CLIA [id number] [address] [place] [address] [place] pH adjusted to patient's actual temperature (Bld) 7.38 Normal 7.35-7.45 [facility] Comment on above: Order Comment: Speci men Type: ARTERIAL BLOOD SPECIMEN Ordering Facility: [facility] Address: [address] Performed By: #### A LLBG #### [facility] CLIA [id number] [address] [place] [address] [place] Potassium [Moles/Vol] 4.0 mmol/L Normal 3.5-5.0 [facility] Comment on above: Order Comment: Speci men Type: ARTERIAL BLOOD SPECIMEN Ordering Facility: [facility] Address: [address] [place] [address] Performed By: #### A LLBG #### [facility] CLIA [id number] [address] [place] [address] [place] Sodium [Moles/Vol] 142 mmol/L Normal 136-144 [facility] Comment on above: Order Comment: Speci men Type: ARTERIAL BLOOD SPECIMEN Ordering Facility: [facility] Address: [address] [place] [address] Performed By: #### A LLBG #### [facility] CLIA [id number] [address] [place] [address] [place] Base deficit (BldA) [Moles/Vol] -3 mmol/L Low -2-0 [facility] Comment on above: Order Comment: Speci men Type: VENOUS BLOOD SPECIMEN Ordering Facility: [facility] Address: [address] [place], [place] [address] Performed By: #### 2 4344-4 #### [facility] CLIA [id number] [address] [place] [address] [place] Calcium.ionized (Bld) [Mass/Vol] 1.23 mmol/L Normal 1.08-1.30 [facility] Comment on above: Order Comment: Speci men Type: VENOUS BLOOD SPECIMEN Ordering Facility: [facility] Address: [address] [place], [place] [address] Performed By: #### 2 4344-4 #### [facility] CLIA [id number] [address] [place] [address] [place] Calcium.ionized adjusted to pH 7.4 (BldA) [Moles/Vol] 1.22 mmol/L Normal 1.08-1.30 [facility] Comment on above: Order Comment: Speci men Type: VENOUS BLOOD SPECIMEN Ordering Facility: [facility] Address: [address] [place] [address] Performed By: #### 2 4344-4 #### [facility] CLIA [id number] [address] [place] [address] [place] Carboxyhemoglobin (BldA) [Mass fraction] 0.6 % Normal 0.0-2.0 [facility] Comment on above: Order Comment: Speci men Type: VENOUS BLOOD SPECIMEN Ordering Facility: [facility] Address: [address] [place] [address] Result Comment: Carb oxyhemoglobin Reference Range for Smokers: 2.0-8.0% Performed By: #### 2 4344-4 #### [facility] CLIA [id number] [address] [place] [address] [place] CO2 (Bld) [Partial pressure] 35 mm Hg Low 36-46 [facility] Comment on above: Order Comment: Speci men Type: VENOUS BLOOD SPECIMEN Ordering Facility: [facility] Address: [address] [place] [address] Performed By: #### 2 4344-4 #### [facility] CLIA [id number] [address] [place] [address] [place] CO2 adjusted to patient's actual temperature (Bld) [Partial pressure] 35 mmHg Low 36-46 [facility] Comment on above: Order Comment: Speci men Type: VENOUS BLOOD SPECIMEN Ordering Facility: [facility] Address: [address] [place], [place] [address] Performed By: #### 2 4344-4 #### [facility] CLIA [id number] [address] [place] [address] [place] Glucose [Mass/Vol] 145 mg/dL High 60-105 [facility] Comment on above: Order Comment: Speci men Type: VENOUS BLOOD SPECIMEN Ordering Facility: [facility] Address: [address] Performed By: #### 2 4344-4 #### [facility] CLIA [id number] [address] [place] [address] [place] HCO3 (Bld) [Moles/Vol] 21 mmol/L Low 22-26 [facility] Comment on above: Order Comment: Speci men Type: VENOUS BLOOD SPECIMEN Ordering Facility: [facility] Address: [address] Performed By: #### 2 4344-4 #### [facility] CLIA [id number] [address] [place] [address] [place] Hematocrit (Bld) [Volume fraction] 42.3 % Normal 39.0-51.0 [facility] Comment on above: Order Comment: Speci men Type: VENOUS BLOOD SPECIMEN Ordering Facility: [facility] Address: [address] Performed By: #### 2 4344-4 #### [facility] CLIA [id number] [address] [place] [address] [place] Hemoglobin (Bld) [Mass/Vol] 13.8 g/dL Normal 13.0-17.0 [facility] Comment on above: Order Comment: Speci men Type: VENOUS BLOOD SPECIMEN Ordering Facility: [facility] Address: [address] [place] [address] Performed By: #### 2 4344-4 #### [facility] CLIA [id number] [address] [place] [address] [place] Methemoglobin (Bld) [Mass fraction] 0.9 % Normal 0.0-1.5 [facility] Comment on above: Order Comment: Speci men Type: VENOUS BLOOD SPECIMEN Ordering Facility: [facility] Address: [address] Performed By: #### 2 4344-4 #### [facility] CLIA [id number] [address] [place] [address] [place] Oxygen (Bld) [Partial pressure] 75 mm Hg Low 85-95 [facility] Comment on above: Order Comment: Speci men Type: VENOUS BLOOD SPECIMEN Ordering Facility: [facility] Address: [address] [place] [address] Performed By: #### 2 4344-4 #### [facility] CLIA [id number] [address] [place] [address] [place] Oxygen adjusted to patient's actual temperature (Bld) [Partial pressure] 75 mmHg Low 85-95 [facility] Comment on above: Order Comment: Speci men Type: VENOUS BLOOD SPECIMEN Ordering Facility: [facility] Address: [address] Performed By: #### 2 4344-4 #### [facility] CLIA [id number] [address] [place] [address] [place] Oxyhemoglobin (BldA) [Mass fraction] 94 % Low 95-98 [facility] Comment on above: Order Comment: Speci men Type: VENOUS BLOOD SPECIMEN Ordering Facility: [facility] Address: [address] [place] [address] Performed By: #### 2 4344-4 #### [facility] CLIA [id number] [address] [place] [id number] [place] pH (Bld) 7.39 [pH] Normal 7.35-7.45 [facility] Comment on above: Order Comment: Speci men Type: VENOUS BLOOD SPECIMEN Ordering Facility: [facility] Address: [address] [place] [address] Performed By: #### 2 4344-4 #### [facility] CLIA [id number] [address] [place] [address] [place] pH adjusted to patient's actual temperature (Bld) 7.39 Normal 7.35-7.45 [facility] Comment on above: Order Comment: Speci men Type: VENOUS BLOOD SPECIMEN Ordering Facility: [facility] Address: [address] [place], [place] [address] Performed By: #### 2 4344-4 #### [facility] CLIA [id number] [address] [place] [address] [place] Potassium [Moles/Vol] 4.3 mmol/L Normal 3.5-5.0 [facility] Comment on above: Order Comment: Speci men Type: VENOUS BLOOD SPECIMEN Ordering Facility: [facility] Address: [address] [place], [place] [address] Performed By: #### 2 4344-4 #### [facility] CLIA [id number] [address] [place] [address] [place] Base deficit (BldA) [Moles/Vol] -3 mmol/L Low -2-0 [facility] Comment on above: Order Comment: Speci men Type: ARTERIAL BLOOD SPECIMEN Ordering Facility: [facility] Address: [address] [place], [place] [address] Performed By: #### A LLBG #### [facility] CLIA [id number] [address] [place] [address] [place] Calcium.ionized (Bld) [Mass/Vol] 1.22 mmol/L Normal 1.08-1.30 [facility] Comment on above: Order Comment: Speci men Type: ARTERIAL BLOOD SPECIMEN Ordering Facility: [facility] Address: [address] [place], [place] [address] Performed By: #### A LLBG #### [facility] CLIA [id number] [address] [place] [address] [place] Calcium.ionized adjusted to pH 7.4 (BldA) [Moles/Vol] 1.22 mmol/L Normal 1.08-1.30 [facility] Comment on above: Order Comment: Speci men Type: ARTERIAL BLOOD SPECIMEN Ordering Facility: [facility] Address: [address] [place] [address] Performed By: #### A LLBG #### [facility] CLIA [id number] [address] [place] [address] [place] Carboxyhemoglobin (BldA) [Mass fraction] 1.0 % Normal 0.0-2.0 [facility] Comment on above: Order Comment: Speci men Type: ARTERIAL BLOOD SPECIMEN Ordering Facility: [facility] Address: [address] [place] [address] Result Comment: Carb oxyhemoglobin Reference Range for Smokers: 2.0-8.0% Performed By: #### A LLBG #### [facility] CLIA [id number] [address] [place] [address] [place] CO2 (Bld) [Partial pressure] 34 mm Hg Low 36-46 [facility] Comment on above: Order Comment: Speci men Type: ARTERIAL BLOOD SPECIMEN Ordering Facility: [facility] Address: [address] [place] [address] Performed By: #### A LLBG #### [facility] CLIA [id number] [address] [place] [address] [place] CO2 adjusted to patient's actual temperature (Bld) [Partial pressure] 34 mmHg Low 36-46 [facility] Comment on above: Order Comment: Speci men Type: ARTERIAL BLOOD SPECIMEN Ordering Facility: [facility] Address: [address] [place] [address] Performed By: #### A LLBG #### [facility] CLIA [id number] [address] [place] [address] [place] Glucose [Mass/Vol] 148 mg/dL High 60-105 [facility] Comment on above: Order Comment: Speci men Type: ARTERIAL BLOOD SPECIMEN Ordering Facility: [facility] Address: [address] [place] [address] Performed By: #### A LLBG #### [facility] CLIA [id number] [address] [place] [address] [place] HCO3 (Bld) [Moles/Vol] 21 mmol/L Low 22-26 [facility] Comment on above: Order Comment: Speci men Type: ARTERIAL BLOOD SPECIMEN Ordering Facility: [facility] Address: [address] Performed By: #### A LLBG #### [facility] CLIA [id number] [address] [place] [address] [place] Hematocrit (Bld) [Volume fraction] 41.3 % Normal 39.0-51.0 [facility] Comment on above: Order Comment: Speci men Type: ARTERIAL BLOOD SPECIMEN Ordering Facility: [facility] Address: [address] Performed By: #### A LLBG #### [facility] CLIA [id number] [address] [place] [address] [place] Hemoglobin (Bld) [Mass/Vol] 13.5 g/dL Normal 13.0-17.0 [facility] Comment on above: Order Comment: Speci men Type: ARTERIAL BLOOD SPECIMEN Ordering Facility: [facility] Address: [address] Performed By: #### A LLBG #### [facility] CLIA [id number] [address] [place] [address] [place] Lactate [Moles/Vol] 0.9 mmol/L Normal 0.5-2.2 [facility] Comment on above: Order Comment: Speci men Type: ARTERIAL BLOOD SPECIMEN Ordering Facility: [facility] Address: [address] Performed By: #### A LLBG #### [facility] CLIA [id number] [address] [place] [address] [place] Methemoglobin (Bld) [Mass fraction] 0.6 % Normal 0.0-1.5 [facility] Comment on above: Order Comment: Speci men Type: ARTERIAL BLOOD SPECIMEN Ordering Facility: [facility] Address: [address] Performed By: #### A LLBG #### [facility] CLIA [id number] [address] [place] [address] [place] Oxygen (Bld) [Partial pressure] 92 mm Hg Normal 85-95 [facility] Comment on above: Order Comment: Speci men Type: ARTERIAL BLOOD SPECIMEN Ordering Facility: [facility] Address: [address] Performed By: #### A LLBG #### [facility] CLIA [id number] [address] [place] Oxygen adjusted to patient's actual temperature (Bld) [Partial pressure] 92 mmHg Normal 85-95 [facility] Comment on above: Order Comment: Speci men Type: ARTERIAL BLOOD SPECIMEN Ordering Facility: [facility] Address: [address] [place], [place] [address] Performed By: #### A LLBG #### [facility] CLIA [id number] [address] [place] [id number] [place] Oxyhemoglobin (BldA) [Mass fraction] 96 % Normal 95-98 [facility] Comment on above: Order Comment: Speci men Type: ARTERIAL BLOOD SPECIMEN Ordering Facility: [facility] Address: [address] [place] [address] Performed By: #### A LLBG #### [facility] CLIA [id number] [address] [place] [address] [place] PATIENT POSITION-ICPET Sitting Normal [facility] Comment on above: Order Comment: Speci men Type: ARTERIAL BLOOD SPECIMEN Ordering Facility: [facility] Address: [address] [place] [address] Result Comment: Base line Performed By: #### A LLBG #### [facility] CLIA [id number] [address] [place] [address] [place] pH (Bld) 7.40 [pH] Normal 7.35-7.45 [facility] Comment on above: Order Comment: Speci men Type: ARTERIAL BLOOD SPECIMEN Ordering Facility: [facility] Address: [address] [place] [address] Performed By: #### A LLBG #### [facility] CLIA [id number] [address] [place] [address] [place] pH adjusted to patient's actual temperature (Bld) 7.40 Normal 7.35-7.45 [facility] Comment on above: Order Comment: Speci men Type: ARTERIAL BLOOD SPECIMEN Ordering Facility: [facility] Address: [address] Performed By: #### A LLBG #### [facility] CLIA [id number] [address] [place] [address] [place] Potassium [Moles/Vol] 4.1 mmol/L Normal 3.5-5.0 [facility] Comment on above: Order Comment: Speci men Type: ARTERIAL BLOOD SPECIMEN Ordering Facility: [facility] Address: [address] [place], [place] Performed By: #### A LLBG #### [facility] CLIA [id number] [address] [place] [address] [place] Sodium [Moles/Vol] 140 mmol/L Normal 136-144 [facility] Comment on above: Order Comment: Speci men Type: ARTERIAL BLOOD SPECIMEN Ordering Facility: [facility] Address: [address] [place] [address] Performed By: #### A LLBG #### [facility] CLIA [id number] [address] [place] [address] [place] Base deficit (BldA) [Moles/Vol] -4 mmol/L Low -2 - 0 mmol/L [facility] Calcium.ionized (Bld) [Mass/Vol] 1.12 mmol/L 1.08 - 1.30 mmol/L [facility] Calcium.ionized adjusted to pH 7.4 (BldA) [Moles/Vol] 1.15 mmol/L 1.08 - 1.30 mmol/L [facility] Carboxyhemoglobin (BldA) [Mass fraction] 1.2 % 0.0 - 2.0 % [facility] CO2 (Bld) [Partial pressure] 26 mm Hg Low 36 - 46 mm Hg [facility] CO2 adjusted to patient's actual temperature (Bld) [Partial pressure] 26 mmHg Low 36 - 46 mmHg [facility] Glucose [Mass/Vol] 130 mg/dL High 60 - 105 mg/dL [facility] HCO3 (Bld) [Moles/Vol] 18 mmol/L Low 22 - 26 mmol/L [facility] Hematocrit (Bld) [Volume fraction] 38.4 % Low 39.0 - 51.0 % [facility] Hemoglobin (Bld) [Mass/Vol] 12.5 g/dL Low 13.0 - 17.0 g/dL [facility] Lactate [Moles/Vol] 1.0 mmol/L 0.5 - 2. 2 mmol/L [facility] Methemoglobin (Bld) [Mass fraction] 0.6 % 0.0 - 1.5 % [facility] Oxygen (Bld) [Partial pressure] 106 mm Hg High 85 - 95 mm Hg [facility] Oxygen adjusted to patient's actual temperature (Bld) [Partial pressure] 106 mmHg High 85 - 95 mmHg [facility] Oxyhemoglobin (BldA) [Mass fraction] 97 % 95 - 98 % [facility] Patient Position Supine [facility] pH (Bld) 7.46 [pH] High 7.35 - 7.45 [facility] pH adjusted to patient's actual temperature (Bld) 7.46 High 7.35 - 7.45 [facility] Potassium [Moles/Vol] 3.6 mmol/L 3.5 - 5.0 mmol/L [facility] Sodium [Moles/Vol] 139 mmol/L 136 - 144 mmol/L [facility] Base deficit (BldA) [Moles/Vol] -3 mmol/L Low -2 - 0 mmol/L [facility] Calcium.ionized (Bld) [Mass/Vol] 1.17 mmol/L 1.08 - 1.30 mmol/L [facility] Calcium.ionized adjusted to pH 7.4 (BldA) [Moles/Vol] 1.17 mmol/L 1.08 - 1.30 mmol/L [facility] Carboxyhemoglobin (BldA) [Mass fraction] 1.1 % 0.0 - 2.0 % [facility] CO2 (Bld) [Partial pressure] 34 mm Hg Low 36 - 46 mm Hg [facility] CO2 adjusted to patient's actual temperature (Bld) [Partial pressure] 34 mmHg Low 36 - 46 mmHg [facility] Glucose [Mass/Vol] 134 mg/dL High 60 - 105 mg/dL [facility] HCO3 (Bld) [Moles/Vol] 21 mmol/L Low 22 - 26 mmol/L [facility] Hematocrit (Bld) [Volume fraction] 37.9 % Low 39.0 - 51.0 % [facility] Hemoglobin (Bld) [Mass/Vol] 12.3 g/dL Low 13.0 - 17.0 g/dL [facility] Lactate [Moles/Vol] 1.0 mmol/L 0.5 - 2. 2 mmol/L [facility] Methemoglobin (Bld) [Mass fraction] 0.7 % 0.0 - 1.5 % [facility] Oxygen (Bld) [Partial pressure] 82 mm Hg Low 85 - 95 mm Hg [facility] Oxygen adjusted to patient's actual temperature (Bld) [Partial pressure] 82 mmHg Low 85 - 95 mmHg [facility] Oxyhemoglobin (BldA) [Mass fraction] 95 % 95 - 98 % [facility] Patient Position Baseline Supine [facility] pH (Bld) 7.40 [pH] 7.35 - 7.45 [facility] pH adjusted to patient's actual temperature (Bld) 7.40 7.35 - 7.45 [facility] Potassium [Moles/Vol] 3.7 mmol/L 3.5 - 5.0 mmol/L [facility] Sodium [Moles/Vol] 139 mmol/L 136 - 144 mmol/L [facility] Base deficit (BldA) [Moles/Vol] -3 mmol/L Low -2-0 [facility] Comment on above: Order Comment: Speci men Type: ARTERIAL BLOOD SPECIMEN Ordering Facility: [facility] Address: [address] [place], [place] [address] Performed By: #### A LLBG #### [facility] CLIA [id number] [address] [place] [address] [place] Calcium.ionized (Bld) [Mass/Vol] 1.17 mmol/L Normal 1.08-1.30 [facility] Comment on above: Order Comment: Speci men Type: ARTERIAL BLOOD SPECIMEN Ordering Facility: [facility] Address: [address] [place], [place] [address] Performed By: #### A LLBG #### [facility] CLIA [id number] [address] [place] [address] [place] Calcium.ionized adjusted to pH 7.4 (BldA) [Moles/Vol] 1.17 mmol/L Normal 1.08-1.30 [facility] Comment on above: Order Comment: Speci men Type: ARTERIAL BLOOD SPECIMEN Ordering Facility: [facility] Address: [address] [place], [place] [address] Performed By: #### A LLBG #### [facility] CLIA [id number] [address] [place] [address] [place] Carboxyhemoglobin (BldA) [Mass fraction] 1.1 % Normal 0.0-2.0 [facility] Comment on above: Order Comment: Speci men Type: ARTERIAL BLOOD SPECIMEN Ordering Facility: [facility] Address: [address] [place], [place] [address] Result Comment: Carb oxyhemoglobin Reference Range for Smokers: 2.0-8.0% Performed By: #### A LLBG #### [facility] CLIA [id number] [address] [place] [address] [place] [place] CO2 (Bld) [Partial pressure] 34 mm Hg Low 36-46 [facility] Comment on above: Order Comment: Speci men Type: ARTERIAL BLOOD SPECIMEN Ordering Facility: [facility] Address: [address] Performed By: #### A LLBG #### [facility] CLIA [id number] [address] [place] [address] [place] CO2 adjusted to patient's actual temperature (Bld) [Partial pressure] 34 mmHg Low 36-46 [facility] Comment on above: Order Comment: Speci men Type: ARTERIAL BLOOD SPECIMEN Ordering Facility: [facility] Address: [address] Performed By: #### A LLBG #### [facility] CLIA [id number] [address] [place] [address] [place] Glucose [Mass/Vol] 134 mg/dL High 60-105 [facility] Comment on above: Order Comment: Speci men Type: ARTERIAL BLOOD SPECIMEN Ordering Facility: [facility] Address: [address] Performed By: #### A LLBG #### [facility] CLIA [id number] [address] [place] [address] [place] HCO3 (Bld) [Moles/Vol] 21 mmol/L Low 22-26 [facility] Comment on above: Order Comment: Speci men Type: ARTERIAL BLOOD SPECIMEN Ordering Facility: [facility] Address: [address] [place] [address] Performed By: #### A LLBG #### [facility] CLIA [id number] [address] [place] [address] [place] Hematocrit (Bld) [Volume fraction] 37.9 % Low 39.0-51.0 [facility] Comment on above: Order Comment: Speci men Type: ARTERIAL BLOOD SPECIMEN Ordering Facility: [facility] Address: [address] Performed By: #### A LLBG #### [facility] CLIA [id number] [address] [place] [id number] [place] Hemoglobin (Bld) [Mass/Vol] 12.3 g/dL Low 13.0-17.0 [facility] Comment on above: Order Comment: Speci men Type: ARTERIAL BLOOD SPECIMEN Ordering Facility: [facility] Address: [address] Performed By: #### A LLBG #### [facility] CLIA [id number] [address] [place] [address] [place] Lactate [Moles/Vol] 1.0 mmol/L Normal 0.5-2.2 [facility] Comment on above: Order Comment: Speci men Type: ARTERIAL BLOOD SPECIMEN Ordering Facility: [facility] Address: [address] [place], [place] [address] Performed By: #### A LLBG #### [facility] IA [id number] [address] [place] [address] [place] Methemoglobin (Bld) [Mass fraction] 0.7 % Normal 0.0-1.5 [facility] Comment on above: Order Comment: Speci men Type: ARTERIAL BLOOD SPECIMEN Ordering Facility: [facility] Address: [address] [place], [place] [address] Performed By: #### A LLBG #### [facility] CLIA [id number] [address] [place] [address] [place] Oxygen (Bld) [Partial pressure] 82 mm Hg Low 85-95 [facility] Comment on above: Order Comment: Speci men Type: ARTERIAL BLOOD SPECIMEN Ordering Facility: [facility] Address: [address] [place] [address] Performed By: #### A LLBG #### [facility] CLIA [id number] [address] [place], [place] [address] [place] Oxygen adjusted to patient's actual temperature (Bld) [Partial pressure] 82 mmHg Low 85-95 [facility] Comment on above: Order Comment: Speci men Type: ARTERIAL BLOOD SPECIMEN Ordering Facility: [facility] Address: [address] [place], [place] [address] Performed By: #### A LLBG #### [facility] CLIA [id number] [address] [place] [address] [place] Oxyhemoglobin (BldA) [Mass fraction] 95 % Normal 95-98 [facility] Comment on above: Order Comment: Speci men Type: ARTERIAL BLOOD SPECIMEN Ordering Facility: [facility] Address: [address] [place], [place] [address] Performed By: #### A LLBG #### [facility] CLIA [id number] [address] [place] [address] [place] PATIENT POSITION-ICPET Baseline Normal [facility] Comment on above: Order Comment: Speci men Type: ARTERIAL BLOOD SPECIMEN Ordering Facility: [facility] Address: [address] [place] [address] Result Comment: Supi ne Performed By: #### A LLBG #### [facility] CLIA [id number] [address] [place] [address] [place] pH (Bld) 7.40 [pH] Normal 7.35-7.45 [facility] Comment on above: Order Comment: Speci men Type: ARTERIAL BLOOD SPECIMEN Ordering Facility: [facility] Address: [address] [place] [address] Performed By: #### A LLBG #### [facility] CLIA [id number] [address] [place] [address] [place] pH adjusted to patient's actual temperature (Bld) 7.40 Normal 7.35-7.45 [facility] Comment on above: Order Comment: Speci men Type: ARTERIAL BLOOD SPECIMEN Ordering Facility: [facility] Address: [address] [place], [place] [address] Performed By: #### A LLBG #### [facility] CLIA [id number] [address] [place] [address] [place] Potassium [Moles/Vol] 3.7 mmol/L Normal 3.5-5.0 [facility] Comment on above: Order Comment: Speci men Type: ARTERIAL BLOOD SPECIMEN Ordering Facility: [facility] Address: [address] [place] [address] Performed By: #### A LLBG #### [facility] CLIA [id number] [address] [place] [address] [place] Sodium [Moles/Vol] 139 mmol/L Normal 136-144 [facility] Comment on above: Order Comment: Speci men Type: ARTERIAL BLOOD SPECIMEN Ordering Facility: [facility] Address: [address] [place] [address] Performed By: #### A LLBG #### [facility] CLIA [id number] [address] [place] [address] [place] Base deficit (BldA) [Moles/Vol] -4 mmol/L Low -2-0 [facility] Comment on above: Order Comment: Speci men Type: VENOUS BLOOD SPECIMEN Ordering Facility: [facility] Address: [address] [place], [place] [address] Performed By: #### 2 4344-4 #### [facility] CLIA [id number] [address] [place] [address] [place] Calcium.ionized (Bld) [Mass/Vol] 1.12 mmol/L Normal 1.08-1.30 [facility] Comment on above: Order Comment: Speci men Type: VENOUS BLOOD SPECIMEN Ordering Facility: [facility] Address: [address] [place], [place] [address] Performed By: #### 2 4344-4 #### [facility] CLIA [id number] [address] [place] [address] [place] Calcium.ionized adjusted to pH 7.4 (BldA) [Moles/Vol] 1.15 mmol/L Normal 1.08-1.30 [facility] Comment on above: Order Comment: Speci men Type: VENOUS BLOOD SPECIMEN Ordering Facility: [facility] Address: [address] [place] [address] Performed By: #### 2 4344-4 #### [facility] CLIA [id number] [facility] [place] [address] [place] Carboxyhemoglobin (BldA) [Mass fraction] 1.2 % Normal 0.0-2.0 [facility] Comment on above: Order Comment: Speci men Type: VENOUS BLOOD SPECIMEN Ordering Facility: [facility] Address: [address] [place] [address] Result Comment: Carb oxyhemoglobin Reference Range for Smokers: 2.0-8.0% Performed By: #### 2 4344-4 #### [facility] CLIA [id number] [address] [place] [address] [place] CO2 (Bld) [Partial pressure] 26 mm Hg Low 36-46 [facility] Comment on above: Order Comment: Speci men Type: VENOUS BLOOD SPECIMEN Ordering Facility: [facility] Address: [address] [place] [address] Performed By: #### 2 4344-4 #### [facility] CLIA [id number] [address] [place] [address] [place] CO2 adjusted to patient's actual temperature (Bld) [Partial pressure] 26 mmHg Low 36-46 [facility] Comment on above: Order Comment: Speci men Type: VENOUS BLOOD SPECIMEN Ordering Facility: [facility] Address: [address] [place], [place] [address] Performed By: #### 2 4344-4 #### [facility] CLIA [id number] [address] [place] [address] [place] Glucose [Mass/Vol] 130 mg/dL High 60-105 [facility] Comment on above: Order Comment: Speci men Type: VENOUS BLOOD SPECIMEN Ordering Facility: [facility] Address: [address] Performed By: #### 2 4344-4 #### [facility] CLIA [id number] [address] [place] [address] [place] HCO3 (Bld) [Moles/Vol] 18 mmol/L Low 22-26 [facility] Comment on above: Order Comment: Speci men Type: VENOUS BLOOD SPECIMEN Ordering Facility: [facility] Address: [address] [place] [address] Performed By: #### 2 4344-4 #### [facility] CLIA [id number] [address] [place] [address] [place] Hematocrit (Bld) [Volume fraction] 38.4 % Low 39.0-51.0 [facility] Comment on above: Order Comment: Speci men Type: VENOUS BLOOD SPECIMEN Ordering Facility: [facility] Address: [address] Performed By: #### 2 4344-4 #### [facility] CLIA [id number] [address] [place] [address] [place] Hemoglobin (Bld) [Mass/Vol] 12.5 g/dL Low 13.0-17.0 [facility] Comment on above: Order Comment: Speci men Type: VENOUS BLOOD SPECIMEN Ordering Facility: [facility] Address: [address] Performed By: #### 2 4344-4 #### [facility] CLIA [id number] [address] [place] [address] [place] Lactate [Moles/Vol] 1.0 mmol/L Normal 0.5-2.2 [facility] Comment on above: Order Comment: Speci men Type: VENOUS BLOOD SPECIMEN Ordering Facility: [facility] Address: [address] [place] [address] Performed By: #### 2 4344-4 #### [facility] CLIA [id number] [address] [place] [address] [place] Methemoglobin (Bld) [Mass fraction] 0.6 % Normal 0.0-1.5 [facility] Comment on above: Order Comment: Speci men Type: VENOUS BLOOD SPECIMEN Ordering Facility: [facility] Address: [address] [place] [address] Performed By: #### 2 4344-4 #### [facility] CLIA [id number] [address] [place] [address] [place] Oxygen (Bld) [Partial pressure] 106 mm Hg High 85-95 [facility] Comment on above: Order Comment: Speci men Type: VENOUS BLOOD SPECIMEN Ordering Facility: [facility] Address: [address] [place] [address] Performed By: #### 2 4344-4 #### [facility] CLIA [id number] [address] [place] [address] [place] Oxygen adjusted to patient's actual temperature (Bld) [Partial pressure] 106 mmHg High 85-95 [facility] Comment on above: Order Comment: Speci men Type: VENOUS BLOOD SPECIMEN Ordering Facility: [facility] Address: [address] [place] [address] Performed By: #### 2 4344-4 #### [facility] CLIA [id number] [address] [place] [address] [place] Oxyhemoglobin (BldA) [Mass fraction] 97 % Normal 95-98 [facility] Comment on above: Order Comment: Speci men Type: VENOUS BLOOD SPECIMEN Ordering Facility: [facility] Address: [address] [place] [address] Performed By: #### 2 4344-4 #### [facility] CLIA [id number] [address] [place] [address] [place] PATIENT POSITION-ICPET Supine Normal [facility] Comment on above: Order Comment: Speci men Type: VENOUS BLOOD SPECIMEN Ordering Facility: [facility] Address: [address] [place] [address] Result Comment: es pastor Performed By: #### 2 4344-4 #### [facility] CLIA [id number] [address] [place] [address] [place] Result Comment: Base line pH (Bld) 7.46 [pH] High 7.35-7.45 [facility] Comment on above: Order Comment: Speci men Type: VENOUS BLOOD SPECIMEN Ordering Facility: [facility] Address: [address] [place] [address] Performed By: #### 2 4344-4 #### [facility] CLIA [id number] [address] [place] [address] [place] pH adjusted to patient's actual temperature (Bld) 7.46 High 7.35-7.45 [facility] Comment on above: Order Comment: Speci men Type: VENOUS BLOOD SPECIMEN Ordering Facility: [facility] Address: [address] [place] [address] Performed By: #### 2 4344-4 #### [facility] CLIA [id number] [address] [place] [address] [place] Potassium [Moles/Vol] 3.6 mmol/L Normal 3.5-5.0 [facility] Comment on above: Order Comment: Speci men Type: VENOUS BLOOD SPECIMEN Ordering Facility: [facility] Address: [address] [place], [place] [address] Performed By: #### 2 4344-4 #### [facility] CLIA [id number] [address] [place] [address] [place] Sodium [Moles/Vol] 139 mmol/L Normal 136-144 [facility] Comment on above: Order Comment: Speci men Type: VENOUS BLOOD SPECIMEN Ordering Facility: [facility] Address: [address] Performed By: #### 2 4344-4 #### [facility] CLIA [id number] [address] [place] [address] [place] Ammonia Plas-sCncon 04-27-20 23 Ammonia (P) [Moles/Vol] 39 umol/L Normal 16-60 [facility] Comment on above: Order Comment: Speci men Type: BLOOD SPECIMEN Ordering Facility: [facility] Address: [address] Performed By: #### 1 6362-6 #### [facility] CLIA [id number] [address] [place] [address] [place] Ammonia (P) [Moles/Vol] 11 umol/L Low 16-60 [facility] Comment on above: Order Comment: Speci men Type: VENOUS BLOOD SPECIMEN Ordering Facility: [facility] Address: [address] [place], [place] [address] Performed By: #### 2 4344-4 #### [facility] CLIA [id number] [address] [place] [address] [place] CK CREATINE KINASEon 023 CK [Catalytic activity/Vol] 78 U/L 51 - 298 U/L [facility] CK [Catalytic activity/Vol] 65 U/L 51 - 298 U/L [facility] CK SerPl-cCncon 04-27-2023 CK [Catalytic activity/Vol] 78 U/L Normal 51-298 [facility] Comment on above: Order Comment: Speci men Type: ARTERIAL BLOOD SPECIMEN Ordering Facility: [facility] Address: [address] [place] [address] Performed By: #### A LLBG #### [facility] CLIA [id number] [address] [place] [address] [place] CK [Catalytic activity/Vol] 65 U/L Normal 51-298 [facility] Comment on above: Order Comment: Speci men Type: VENOUS BLOOD SPECIMEN Ordering Facility: [facility] Address: [address] [place], [place] [address] Performed By: #### 2 4344-4 #### [facility] CLIA [id number] [address] [facility] [address]K [id number] OF [facility] CNOVon 04-27-2023 CNOV Office Visit ([facility] ) -- JACINTA ROBLES ([id number]) 1945 M Date Time Provider Department 04/27/23 1:00 PM [facility] MA[facility] G6-154 PROCEDURE RMPUBRON During your visit today, we recorded the following information about you: Resp Therapist: Surgical/Procedural Record ID: [id number] 04/27/2023 12:23 PM Author: VENKATA PROVIDER Signed by [facility] PROVIDER on 04/27/2023 at 12:23 PM Document text: Allergies As of Date: 04/27/2023 Noted Allergy Reaction PENICILLINS 12/08/2017 7 - Swelling Date Reviewed: 03/23/2023 Reviewed by: Lisa Liz RN - Fully Assessed Reason for Visit: Lab Orders [1688] Primary Visit Diagnosis:PAH (pulmonary artery hypertension) (HCC) [I27.21] Other Visit Diagnosis:Exercise intolerance [R68.89] Order(s):XR ARTERY CATHETER (POC) FOR OZIEL USE ONLY [3950031] Order #: [id number]. #:[id number]: 1 US VASCULAR (POC) FOR OZIEL USE ONLY [9234463] Order #: [id number]. #:[id number]: 1 VENOUS BLOOD GASES [SQVALLBG] Order #: [id number]. #:[id number] ARTERIAL BLOOD GASES [SQALLBG] Order #: [id number]. #:[id number] ARTERIAL BLOOD GASES [SQALLBG] Order #: [id number]. #:[id number] AMMONIA BLD [SQNH3] Order #: [id number]. #:[id number] CK CREATINE KINASE [SQCK] Order #: [id number]. #:[id number] VENOUS BLOOD GASES [SQVALLBG] Order #: [id number]. #:[id number] ARTERIAL BLOOD GASES [SQALLBG] Order #: [id number]. #:[id number] VENOUS BLOOD GASES [SQVALLBG] Order #: [id number]. #:[id number] ARTERIAL BLOOD GASES [SQALLBG] Order #: [id number]. #:[id number] VENOUS BLOOD GASES [SQVALLBG] Order #: [id number]. #:[id number] ARTERIAL BLOOD GASES [SQALLBG] Order #: [id number]. #:[id number] VENOUS BLOOD GASES [SQVALLBG] Order #: [id number]. #:[id number] ARTERIAL BLOOD GASES [SQALLBG] Order #: [id number]. #:[id number] VENOUS BLOOD GASES [SQVALLBG] Order #: [id number]. #:[id number] ARTERIAL BLOOD GASES [SQALLBG] Order #: [id number]. #:[id number] VENOUS BLOOD GASES [SQVALLBG] Order #: [id number]. #:[id number] ARTERIAL BLOOD GASES [SQALLBG] Order #: [id number]. #:[id number] AMMONIA BLD [SQNH3] Order #: [id number]. #:[id number] CK CREATINE KINASE [SQCK] Order #: [id number]. #:[id number] VENOUS BLOOD GASES [SQVALLBG] Order #: [id number]. #:[id number] ARTERIAL BLOOD GASES [SQALLBG] Order #: [id number]. #:[id number] VENOUS BLOOD GASES [SQVALLBG] Order #: [id number]. #:[id number] ARTERIAL BLOOD GASES [SQALLBG] Order #: [id number]. #:[id number] ARTERIAL BLOOD GASES [SQALLBG] Order #: [id number]. #:[id number] Prescriptions as of 05/17/2023 - pramipexole (MIRAPEX) 0.125 mg tablet TAKE 1 TABLET BY MOUTH 2 HOURS BEFORE BEDTIME - CONTOUR TEST STRIPS test strip use 1 strip to check glucose once daily - tamsulosin (FLOMAX) 0.4 mg - montelukast (SINGULAIR) 10 mg tablet - ipratropium-albuterol (DUONEB) 0.5 mg-3 mg(2.5 mg base)/3 mL nebu Inhale 3 mL as instructed. - albuterol HFA (PROVENTIL HFA, VENTOLIN HFA) 90 mcg/actuation inhaler Inhale 2 Puffs as instructed every 6 hours as needed. - fluticasone-salmeterol (ADVAIR, WIXELA) 250-50 mcg/dose inhaler INHALE 1 DOSE BY MOUTH TWICE DAILY - escitalopram oxalate (LEXAPRO) 10 mg tablet Take 10 mg by mouth daily at bedtime. - Mirtazapine (REMERON) 7.5 mg tablet Take 7.5 mg by mouth daily at bedtime. - pravastatin (PRAVACHOL) 80 mg tablet - losartan (COZAAR) 100 mg tablet - amLODIPine (NORVASC) 5 mg tablet Facility-Administered Medications as of 05/17/2023 - perflutren lipid microspheres 1.3 mL in NaCl (PF) 0.9% 10 mL injection (DEFINITY) - sodium chloride 0.9 % (flush) 10 mL (BD POSIFLUSH) Problem List As Of Date 04/27/2023 Noted Resolved Prostate cancer (HCC) [C61] 12/19/2017 Encounter Status:Closed by GASPER RODAS on 05/17/23 [facility] Gas + CO Pnl BldVon 04-27-20 Calcium.ionized (Bld) [Mass/Vol] 1.21 mmol/L Normal 1.08-1.30 [facility] Comment on above: Order Comment: Speci men Type: VENOUS BLOOD SPECIMEN Ordering Facility: [facility] Address: [address] [place] [address] Performed By: #### 2 4344-4 #### [facility] CLIA [id number] [address] PATIENT POSITION-ICPET 3 min. Normal [facility] Comment on above: Order Comment: Speci men Type: VENOUS BLOOD SPECIMEN Ordering Facility: [facility] Address: [address] [place] [address] Result Comment: Collins very Performed By: #### 2 4344-4 #### [facility] CLIA [id number] [address] [place] Lactate [Moles/Vol] 3.6 mmol/L High 0.5-2.2 [facility] Comment on above: Order Comment: Speci men Type: VENOUS BLOOD SPECIMEN Ordering Facility: [facility] Address: [address] [place] [address] Performed By: #### 2 4344-4 #### [facility] CLIA [id number] [address] [place] Order Comment: Speci men Type: ARTERIAL BLOOD SPECIMEN Ordering Facility: [facility] Address: [address] [place] [address] Performed By: #### A LLBG #### [facility] CLIA [id number] [address] [place] PATIENT POSITION-ICPET 100W Normal [facility] Comment on above: Order Comment: Speci men Type: VENOUS BLOOD SPECIMEN Ordering Facility: [facility] Address: [address] [place] [address] Result Comment: MAX Performed By: #### 2 4344-4 #### [facility] CLIA [id number] [address] [place] Order Comment: Speci men Type: ARTERIAL BLOOD SPECIMEN Ordering Facility: [facility] Address: [address] Performed By: #### A LLBG #### [facility] CLIA [id number] [address] Calcium.ionized adjusted to pH 7.4 (BldA) [Moles/Vol] 1.21 mmol/L Normal 1.08-1.30 [facility] Comment on above: Order Comment: Speci men Type: ARTERIAL BLOOD SPECIMEN Ordering Facility: [facility] Address: [address] Performed By: #### A LLBG #### [facility] CLIA [id number] [address] Order Comment: Speci men Type: VENOUS BLOOD SPECIMEN Ordering Facility: [facility] Address: [address] [place] [address] Performed By: #### 2 4344-4 #### [facility] CLIA [id number] [address] [place] PATIENT POSITION-ICPET 80W Normal [facility] Comment on above: Order Comment: Speci men Type: ARTERIAL BLOOD SPECIMEN Ordering Facility: [facility] Address: [address] Performed By: #### A LLBG #### [facility] CLIA [id number] [address] [place] Order Comment: Speci men Type: VENOUS BLOOD SPECIMEN Ordering Facility: [facility] Address: [address] [place] [address] Performed By: #### 2 4344-4 #### [facility] CLIA [id number] [address] OF [facility] PATIENT POSITION-ICPET 40W Normal [facility] Comment on above: Order Comment: Speci men Type: VENOUS BLOOD SPECIMEN Ordering Facility: [facility] Address: [address] Performed By: #### 2 4344-4 #### [facility] CLIA [id number] [address] OF [facility] Order Comment: Speci men Type: ARTERIAL BLOOD SPECIMEN Ordering Facility: [facility] Address: [address] Performed By: #### A LLBG #### [facility] CLIA [id number] [address] [place] [address] [place] Lactate [Moles/Vol] 1.0 mmol/L Normal 0.5-2.2 [facility] Comment on above: Order Comment: Speci men Type: VENOUS BLOOD SPECIMEN Ordering Facility: [facility] Address: [address] [place] [address] Performed By: #### 2 4344-4 #### [facility] CLIA [id number] [address] [place] PATIENT POSITION-ICPET 20W Normal [facility] Comment on above: Order Comment: Speci men Type: VENOUS BLOOD SPECIMEN Ordering Facility: [facility] Address: [address] [place] [address] Performed By: #### 2 4344-4 #### [facility] CLIA [id number] [address] [place] [address] [place] Sodium [Moles/Vol] 141 mmol/L Normal 136-144 [facility] Comment on above: Order Comment: Speci men Type: VENOUS BLOOD SPECIMEN Ordering Facility: [facility] Address: [address] [place] [address] Performed By: #### 2 4344-4 #### [facility] CLIA [id number] [address] [facility] [id number] [address] [facility] [place] Gas and Carbon monoxide pane l (BldV)on 04-27-2023 Base Deficit, Venous -7 mmol/L Low -2 - 0 mmol/L [facility] Calcium.ionized (Bld) [Mass/Vol] 1.21 mmol/L 1.08 - 1.30 mmol/L [facility] Calcium.ionized adjusted to pH 7.4 (BldA) [Moles/Vol] 1.14 mmol/L 1.08 - 1.30 mmol/L [facility] Carboxyhemoglobin (BldV) [Mass fraction] 0.8 % 0.0 - 2.0 % [facility] CO2 (BldV) [Partial pressure] 40 mm[Hg] Low 42 - 55 mmHg [facility] CO2 adjusted to patient's actual temperature (BldV) [Partial pressure] 40 mmHg Low 42 - 55 mmHg [facility] Glucose [Mass/Vol] 133 mg/dL High 60 - 105 mg/dL [facility] HCO3 (Bld) [Moles/Vol] 19 mmol/L Low 24 - 28 mmol/L [facility] Hematocrit (Bld) [Volume fraction] 41.6 % 39.0 - 51.0 % [facility] Hemoglobin (Bld) [Mass/Vol] 13.5 g/dL 13.0 - 17.0 g/dL [facility] Lactate [Moles/Vol] 4.5 mmol/L High 0.5 - 2. 2 mmol/L [facility] Methemoglobin (Bld) [Mass fraction] 0.7 % 0.0 - 1.5 % [facility] Oxygen (BldV) [Partial pressure] 43 mm[Hg] 35 - 45 mmHg [facility] Oxygen adjusted to patient's actual temperature (BldV) [Partial pressure] 43 mmHg 35 - 45 mmHg [facility] Oxygen saturation in Venous blood 69 % 60 - 85 % [facility] Oxyhemoglobin (BldV) [Mass fraction] 68 % 60 - 85 % [facility] Patient Position 3 min. Recovery [facility] pH (BldV) 7.29 [pH] Low 7.32 - 7.42 [facility] pH adjusted to patient's actual temperature (BldV) 7.29 Low 7.32 - 7.42 [facility] Potassium [Moles/Vol] 3.9 mmol/L 3.5 - 5.0 mmol/L [facility] Sodium [Moles/Vol] 142 mmol/L 136 - 144 mmol/L [facility] Base Deficit, Venous -7 mmol/L Low -2 - 0 mmol/L [facility] Calcium.ionized (Bld) [Mass/Vol] 1.27 mmol/L 1.08 - 1.30 mmol/L [facility] Calcium.ionized adjusted to pH 7.4 (BldA) [Moles/Vol] 1.17 mmol/L 1.08 - 1.30 mmol/L [facility] Carboxyhemoglobin (BldV) [Mass fraction] 0.3 % 0.0 - 2.0 % [facility] CO2 (BldV) [Partial pressure] 48 mm[Hg] 42 - 55 mmHg [facility] CO2 adjusted to patient's actual temperature (BldV) [Partial pressure] 48 mmHg 42 - 55 mmHg [facility] Glucose [Mass/Vol] 135 mg/dL High 60 - 105 mg/dL [facility] HCO3 (Bld) [Moles/Vol] 20 mmol/L Low 24 - 28 mmol/L [facility] Hematocrit (Bld) [Volume fraction] 42.5 % 39.0 - 51.0 % [facility] Hemoglobin (Bld) [Mass/Vol] 13.9 g/dL 13.0 - 17.0 g/dL [facility] Lactate [Moles/Vol] 4.5 mmol/L High 0.5 - 2. 2 mmol/L [facility] Methemoglobin (Bld) [Mass fraction] 1.1 % 0.0 - 1.5 % [facility] Oxygen (BldV) [Partial pressure] 38 mm[Hg] 35 - 45 mmHg [facility] Oxygen adjusted to patient's actual temperature (BldV) [Partial pressure] 38 mmHg 35 - 45 mmHg [facility] Oxygen saturation in Venous blood 61 % 60 - 85 % [facility] Oxyhemoglobin (BldV) [Mass fraction] 60 % 60 - 85 % [facility] Patient Position 1 min. Recovery [facility] pH (BldV) 7.24 [pH] Low 7.32 - 7.42 [facility] pH adjusted to patient's actual temperature (BldV) 7.24 Low 7.32 - 7.42 [facility] Potassium [Moles/Vol] 4.0 mmol/L 3.5 - 5.0 mmol/L [facility] Sodium [Moles/Vol] 146 mmol/L High 136 - 144 mmol/L [facility] Base Deficit, Venous -4 mmol/L Low -2 - 0 mmol/L [facility] Calcium.ionized (Bld) [Mass/Vol] 1.27 mmol/L 1.08 - 1.30 mmol/L [facility] Calcium.ionized adjusted to pH 7.4 (BldA) [Moles/Vol] 1.18 mmol/L 1.08 - 1.30 mmol/L [facility] Carboxyhemoglobin (BldV) [Mass fraction] 0.7 % 0.0 - 2.0 % [facility] CO2 (BldV) [Partial pressure] 54 mm[Hg] 42 - 55 mmHg [facility] CO2 adjusted to patient's actual temperature (BldV) [Partial pressure] 54 mmHg 42 - 55 mmHg [facility] Glucose [Mass/Vol] 137 mg/dL High 60 - 105 mg/dL [facility] HCO3 (Bld) [Moles/Vol] 24 mmol/L 24 - 28 mmol/L [facility] Hematocrit (Bld) [Volume fraction] 44.2 % 39.0 - 51.0 % [facility] Hemoglobin (Bld) [Mass/Vol] 14.4 g/dL 13.0 - 17.0 g/dL [facility] Lactate [Moles/Vol] 3.6 mmol/L High 0.5 - 2. 2 mmol/L [facility] Methemoglobin (Bld) [Mass fraction] 1.1 % 0.0 - 1.5 % [facility] Oxygen (BldV) [Partial pressure] 26 mm[Hg] Low 35 - 45 mmHg [facility] Oxygen adjusted to patient's actual temperature (BldV) [Partial pressure] 26 mmHg Low 35 - 45 mmHg [facility] Oxygen saturation in Venous blood 34 % Low 60 - 85 % [facility] Oxyhemoglobin (BldV) [Mass fraction] 33 % Low 60 - 85 % [facility] Patient Position 100W MAX [facility] pH (BldV) 7.26 [pH] Low 7.32 - 7.42 [facility] pH adjusted to patient's actual temperature (BldV) 7.26 Low 7.32 - 7.42 [facility] Potassium [Moles/Vol] 4.8 mmol/L 3.5 - 5.0 mmol/L [facility] Sodium [Moles/Vol] 144 mmol/L 136 - 144 mmol/L [facility] Base Deficit, Venous -4 mmol/L Low -2 - 0 mmol/L [facility] Calcium.ionized (Bld) [Mass/Vol] 1.29 mmol/L 1.08 - 1.30 mmol/L [facility] Carboxyhemoglobin (BldV) [Mass fraction] 0.3 % 0.0 - 2.0 % [facility] CO2 (BldV) [Partial pressure] 50 mm[Hg] 42 - 55 mmHg [facility] CO2 adjusted to patient's actual temperature (BldV) [Partial pressure] 50 mmHg 42 - 55 mmHg [facility] Glucose [Mass/Vol] 139 mg/dL High 60 - 105 mg/dL [facility] HCO3 (Bld) [Moles/Vol] 23 mmol/L Low 24 - 28 mmol/L [facility] Hematocrit (Bld) [Volume fraction] 42.4 % 39.0 - 51.0 % [facility] Hemoglobin (Bld) [Mass/Vol] 13.8 g/dL 13.0 - 17.0 g/dL [facility] Lactate [Moles/Vol] 2.8 mmol/L High 0.5 - 2. 2 mmol/L [facility] Methemoglobin (Bld) [Mass fraction] 1.0 % 0.0 - 1.5 % [facility] Oxygen (BldV) [Partial pressure] 28 mm[Hg] Low 35 - 45 mmHg [facility] Oxygen adjusted to patient's actual temperature (BldV) [Partial pressure] 28 mmHg Low 35 - 45 mmHg [facility] Oxygen saturation in Venous blood 41 % Low 60 - 85 % [facility] Oxyhemoglobin (BldV) [Mass fraction] 40 % Low 60 - 85 % [facility] pH (BldV) 7.28 [pH] Low 7.32 - 7.42 [facility] pH adjusted to patient's actual temperature (BldV) 7.28 Low 7.32 - 7.42 [facility] Potassium [Moles/Vol] 4.6 mmol/L 3.5 - 5.0 mmol/L [facility] Sodium [Moles/Vol] 147 mmol/L High 136 - 144 mmol/L [facility] Base Deficit, Venous -2 mmol/L -2 - 0 mmol/L [facility] Calcium.ionized (Bld) [Mass/Vol] 1.23 mmol/L 1.08 - 1.30 mmol/L [facility] Calcium.ionized adjusted to pH 7.4 (BldA) [Moles/Vol] 1.17 mmol/L 1.08 - 1.30 mmol/L [facility] Carboxyhemoglobin (BldV) [Mass fraction] 0.8 % 0.0 - 2.0 % [facility] CO2 (BldV) [Partial pressure] 47 mm[Hg] 42 - 55 mmHg [facility] CO2 adjusted to patient's actual temperature (BldV) [Partial pressure] 47 mmHg 42 - 55 mmHg [facility] Glucose [Mass/Vol] 140 mg/dL High 60 - 105 mg/dL [facility] HCO3 (Bld) [Moles/Vol] 23 mmol/L Low 24 - 28 mmol/L [facility] Hematocrit (Bld) [Volume fraction] 42.7 % 39.0 - 51.0 % [facility] Hemoglobin (Bld) [Mass/Vol] 13.9 g/dL 13.0 - 17.0 g/dL [facility] Lactate [Moles/Vol] 1.9 mmol/L 0.5 - 2. 2 mmol/L [facility] Methemoglobin (Bld) [Mass fraction] 1.3 % 0.0 - 1.5 % [facility] Oxygen (BldV) [Partial pressure] 27 mm[Hg] Low 35 - 45 mmHg [facility] Oxygen adjusted to patient's actual temperature (BldV) [Partial pressure] 27 mmHg Low 35 - 45 mmHg [facility] Oxygen saturation in Venous blood 41 % Low 60 - 85 % [facility] Oxyhemoglobin (BldV) [Mass fraction] 40 % Low 60 - 85 % [facility] Patient Position 60W [facility] pH (BldV) 7.32 [pH] 7.32 - 7.42 [facility] pH adjusted to patient's actual temperature (BldV) 7.32 7.32 - 7.42 [facility] Potassium [Moles/Vol] 4.3 mmol/L 3.5 - 5.0 mmol/L [facility] Sodium [Moles/Vol] 142 mmol/L 136 - 144 mmol/L [facility] Base Deficit, Venous -2 mmol/L -2 - 0 mmol/L [facility] Calcium.ionized (Bld) [Mass/Vol] 1.22 mmol/L 1.08 - 1.30 mmol/L [facility] Calcium.ionized adjusted to pH 7.4 (BldA) [Moles/Vol] 1.18 mmol/L 1.08 - 1.30 mmol/L [facility] Carboxyhemoglobin (BldV) [Mass fraction] 0.7 % 0.0 - 2.0 % [facility] CO2 (BldV) [Partial pressure] 45 mm[Hg] 42 - 55 mmHg [facility] CO2 adjusted to patient's actual temperature (BldV) [Partial pressure] 45 mmHg 42 - 55 mmHg [facility] Glucose [Mass/Vol] 139 mg/dL High 60 - 105 mg/dL [facility] HCO3 (Bld) [Moles/Vol] 23 mmol/L Low 24 - 28 mmol/L [facility] Hematocrit (Bld) [Volume fraction] 42.1 % 39.0 - 51.0 % [facility] Hemoglobin (Bld) [Mass/Vol] 13.7 g/dL 13.0 - 17.0 g/dL [facility] Lactate [Moles/Vol] 1.3 mmol/L 0.5 - 2. 2 mmol/L [facility] Methemoglobin (Bld) [Mass fraction] 1.0 % 0.0 - 1.5 % [facility] Oxygen (BldV) [Partial pressure] 28 mm[Hg] Low 35 - 45 mmHg [facility] Oxygen adjusted to patient's actual temperature (BldV) [Partial pressure] 28 mmHg Low 35 - 45 mmHg [facility] Oxygen saturation in Venous blood 46 % Low 60 - 85 % [facility] Oxyhemoglobin (BldV) [Mass fraction] 45 % Low 60 - 85 % [facility] Patient Position 40W [facility] pH (BldV) 7.33 [pH] 7.32 - 7.42 [facility] pH adjusted to patient's actual temperature (BldV) 7.33 7.32 - 7.42 [facility] Potassium [Moles/Vol] 4.2 mmol/L 3.5 - 5.0 mmol/L [facility] Sodium [Moles/Vol] 143 mmol/L 136 - 144 mmol/L [facility] BASE DEFICIT, VENOUS -7 mmol/L Low -2-0 [facility] Comment on above: Order Comment: Speci men Type: VENOUS BLOOD SPECIMEN Ordering Facility: [facility] Address: [address] [place] [address] Performed By: #### 2 4344-4 #### [facility] CLIA [id number] [address] [place] [address] [place] Calcium.ionized adjusted to pH 7.4 (BldA) [Moles/Vol] 1.14 mmol/L Normal 1.08-1.30 [facility] Comment on above: Order Comment: Speci men Type: VENOUS BLOOD SPECIMEN Ordering Facility: [facility] Address: [address] [place] [address] Performed By: #### 2 4344-4 #### [facility] CLIA [id number] [address] [place] [address] [place] Carboxyhemoglobin (BldV) [Mass fraction] 0.8 % Normal 0.0-2.0 [facility] Comment on above: Order Comment: Speci men Type: VENOUS BLOOD SPECIMEN Ordering Facility: [facility] Address: [address] [place] [address] Result Comment: Carb oxyhemoglobin Reference Range for Smokers: 2.0-8.0% Performed By: #### 2 4344-4 #### [facility] CLIA [id number] [address] [place] [address] [place] CO2 (BldV) [Partial pressure] 40 mm[Hg] Low 42-55 [facility] Comment on above: Order Comment: Speci men Type: VENOUS BLOOD SPECIMEN Ordering Facility: [facility] Address: [address] [place] [address] Performed By: #### 2 4344-4 #### [facility] CLIA [id number] [address] [place] [address] [place] CO2 adjusted to patient's actual temperature (BldV) [Partial pressure] 40 mmHg Low 42-55 [facility] Comment on above: Order Comment: Speci men Type: VENOUS BLOOD SPECIMEN Ordering Facility: [facility] Address: [address] [place] [address] Performed By: #### 2 4344-4 #### [facility] CLIA [id number] [address] [place] [address] [place] Glucose [Mass/Vol] 133 mg/dL High 60-105 [facility] Comment on above: Order Comment: Speci men Type: VENOUS BLOOD SPECIMEN Ordering Facility: [facility] Address: [address] [place] [address] Performed By: #### 2 4344-4 #### [facility] CLIA [id number] [address] [place] [address] [place] HCO3 (Bld) [Moles/Vol] 19 mmol/L Low 24-28 [facility] Comment on above: Order Comment: Speci men Type: VENOUS BLOOD SPECIMEN Ordering Facility: [facility] Address: [address] [place], [place] [id number] Performed By: #### 2 4344-4 #### [facility] CLIA [id number] [address] [place] [address] [place] Hematocrit (Bld) [Volume fraction] 41.6 % Normal 39.0-51.0 [facility] Comment on above: Order Comment: Speci men Type: VENOUS BLOOD SPECIMEN Ordering Facility: [facility] Address: [address] [place], [place] [id number] Performed By: #### 2 4344-4 #### [facility] CLIA [id number] [address] [place] [address] [place] Hemoglobin (Bld) [Mass/Vol] 13.5 g/dL Normal 13.0-17.0 [facility] Comment on above: Order Comment: Speci men Type: VENOUS BLOOD SPECIMEN Ordering Facility: [facility] Address: [address] Performed By: #### 2 4344-4 #### [facility] CLIA [id number] [address] [place] [address] [place] Lactate [Moles/Vol] 4.5 mmol/L High 0.5-2.2 [facility] Comment on above: Order Comment: Speci men Type: VENOUS BLOOD SPECIMEN Ordering Facility: [facility] Address: [address] Performed By: #### 2 4344-4 #### [facility] CLIA [id number] [address] [place] [address] [place] Methemoglobin (Bld) [Mass fraction] 0.7 % Normal 0.0-1.5 [facility] Comment on above: Order Comment: Speci men Type: VENOUS BLOOD SPECIMEN Ordering Facility: [facility] Address: [address] Performed By: #### 2 4344-4 #### [facility] CLIA [id number] [address] [place] [address] [place] Oxygen (BldV) [Partial pressure] 43 mm[Hg] Normal 35-45 [facility] Comment on above: Order Comment: Speci men Type: VENOUS BLOOD SPECIMEN Ordering Facility: [facility] Address: [address] [place] [address] Performed By: #### 2 4344-4 #### [facility] CLIA [id number] [address] [place] [address] [place] Oxygen adjusted to patient's actual temperature (BldV) [Partial pressure] 43 mmHg Normal 35-45 [facility] Comment on above: Order Comment: Speci men Type: VENOUS BLOOD SPECIMEN Ordering Facility: [facility] Address: [address] [place] [address] Performed By: #### 2 4344-4 #### [facility] CLIA [id number] [address] [place] [address] [place] Oxygen saturation in Venous blood 69 % Normal 60-85 [facility] Comment on above: Order Comment: Speci men Type: VENOUS BLOOD SPECIMEN Ordering Facility: [facility] Address: [address] [place], [place] [address] Performed By: #### 2 4344-4 #### [facility] CLIA [id number] [address] [place] [address] [place] Oxyhemoglobin (BldV) [Mass fraction] 68 % Normal 60-85 [facility] Comment on above: Order Comment: Speci men Type: VENOUS BLOOD SPECIMEN Ordering Facility: [facility] Address: [address] [place] [address] Performed By: #### 2 4344-4 #### [facility] CLIA [id number] [address] [place] [address] [place] pH (BldV) 7.29 [pH] Low 7.32-7.42 [facility] Comment on above: Order Comment: Speci men Type: VENOUS BLOOD SPECIMEN Ordering Facility: [facility] Address: [address] [place], [place] [address] Performed By: #### 2 4344-4 #### [facility] CLIA [id number] [address] [place] [address] [place] pH adjusted to patient's actual temperature (BldV) 7.29 Low 7.32-7.42 [facility] Comment on above: Order Comment: Speci men Type: VENOUS BLOOD SPECIMEN Ordering Facility: [facility] Address: [address] [place], [place] [address] Performed By: #### 2 4344-4 #### [facility] CLIA [id number] [address] [place] [address] [place] Potassium [Moles/Vol] 3.9 mmol/L Normal 3.5-5.0 [facility] Comment on above: Order Comment: Speci men Type: VENOUS BLOOD SPECIMEN Ordering Facility: [facility] Address: [address] [place] [id number] Performed By: #### 2 4344-4 #### [facility] CLIA [id number] [address] [place] [address] [place] Sodium [Moles/Vol] 142 mmol/L Normal 136-144 [facility] Comment on above: Order Comment: Speci men Type: VENOUS BLOOD SPECIMEN Ordering Facility: [facility] Address: [address] [place] [address] Performed By: #### 2 4344-4 #### [facility] CLIA [id number] [address] [place] [address] [place] Base Deficit, Venous -2 mmol/L -2 - 0 mmol/L [facility] Calcium.ionized (Bld) [Mass/Vol] 1.21 mmol/L 1.08 - 1.30 mmol/L [facility] Calcium.ionized adjusted to pH 7.4 (BldA) [Moles/Vol] 1.19 mmol/L 1.08 - 1.30 mmol/L [facility] Carboxyhemoglobin (BldV) [Mass fraction] 1.2 % 0.0 - 2.0 % [facility] CO2 (BldV) [Partial pressure] 41 mm[Hg] Low 42 - 55 mmHg [facility] CO2 adjusted to patient's actual temperature (BldV) [Partial pressure] 41 mmHg Low 42 - 55 mmHg [facility] Glucose [Mass/Vol] 140 mg/dL High 60 - 105 mg/dL [facility] HCO3 (Bld) [Moles/Vol] 23 mmol/L Low 24 - 28 mmol/L [facility] Hematocrit (Bld) [Volume fraction] 40.9 % 39.0 - 51.0 % [facility] Hemoglobin (Bld) [Mass/Vol] 13.3 g/dL 13.0 - 17.0 g/dL [facility] Lactate [Moles/Vol] 1.0 mmol/L 0.5 - 2. 2 mmol/L [facility] Methemoglobin (Bld) [Mass fraction] 1.0 % 0.0 - 1.5 % [facility] Oxygen (BldV) [Partial pressure] 29 mm[Hg] Low 35 - 45 mmHg [facility] Oxygen adjusted to patient's actual temperature (BldV) [Partial pressure] 29 mmHg Low 35 - 45 mmHg [facility] Oxygen saturation in Venous blood 49 % Low 60 - 85 % [facility] Oxyhemoglobin (BldV) [Mass fraction] 48 % Low 60 - 85 % [facility] Patient Position 20W [facility] pH (BldV) 7.36 [pH] 7.32 - 7.42 [facility] pH adjusted to patient's actual temperature (BldV) 7.36 7.32 - 7.42 [facility] Potassium [Moles/Vol] 4.1 mmol/L 3.5 - 5.0 mmol/L [facility] Sodium [Moles/Vol] 141 mmol/L 136 - 144 mmol/L [facility] BASE DEFICIT, VENOUS -7 mmol/L Low -2-[facility] Comment on above: Order Comment: Speci men Type: ARTERIAL BLOOD SPECIMEN Ordering Facility: [facility] Address: [address] [place] [address] Performed By: #### A LLBG #### [facility] CLIA [id number] [address] [place] [address] [place] [facility] Calcium.ionized (Bld) [Mass/Vol] 1.27 mmol/L Normal 1.08-1.30 [facility] Comment on above: Order Comment: Speci men Type: ARTERIAL BLOOD SPECIMEN Ordering Facility: [facility] Address: [address] [place] [address] Performed By: #### A LLBG #### [facility] CLIA [id number] [address] [place] [address] [place] Calcium.ionized adjusted to pH 7.4 (BldA) [Moles/Vol] 1.17 mmol/L Normal 1.08-1.30 [facility] Comment on above: Order Comment: Speci men Type: ARTERIAL BLOOD SPECIMEN Ordering Facility: [facility] Address: [address] [place] [address] Performed By: #### A LLBG #### [facility] CLIA [id number] [address] [place] [address] [place] Carboxyhemoglobin (BldV) [Mass fraction] 0.3 % Normal 0.0-2.0 [facility] Comment on above: Order Comment: Speci men Type: ARTERIAL BLOOD SPECIMEN Ordering Facility: [facility] Address: [address] Result Comment: Carb oxyhemoglobin Reference Range for Smokers: 2.0-8.0% Performed By: #### A LLBG #### [facility] CLIA [id number] [address] [place] [address] [place] CO2 (BldV) [Partial pressure] 48 mm[Hg] Normal 42-55 [facility] Comment on above: Order Comment: Speci men Type: ARTERIAL BLOOD SPECIMEN Ordering Facility: [facility] Address: [address] Performed By: #### A LLBG #### [facility] CLIA [id number] [address] [place] [address] [place] CO2 adjusted to patient's actual temperature (BldV) [Partial pressure] 48 mmHg Normal 42-55 [facility] Comment on above: Order Comment: Speci men Type: ARTERIAL BLOOD SPECIMEN Ordering Facility: [facility] Address: [address] Performed By: #### A LLBG #### [facility] CLIA [id number] [address] [place] [address] [place] Glucose [Mass/Vol] 135 mg/dL High 60-105 [facility] Comment on above: Order Comment: Speci men Type: ARTERIAL BLOOD SPECIMEN Ordering Facility: [facility] Address: [address] Performed By: #### A LLBG #### [facility] CLIA [id number] [address] [place] [address] [place] HCO3 (Bld) [Moles/Vol] 20 mmol/L Low 24-28 [facility] Comment on above: Order Comment: Speci men Type: ARTERIAL BLOOD SPECIMEN Ordering Facility: [facility] Address: [address] [place] [address] Performed By: #### A LLBG #### [facility] CLIA [id number] [address] [place] [address] [place] Hematocrit (Bld) [Volume fraction] 42.5 % Normal 39.0-51.0 [facility] Comment on above: Order Comment: Speci men Type: ARTERIAL BLOOD SPECIMEN Ordering Facility: [facility] Address: [address] [place] [address] Performed By: #### A LLBG #### [facility] CLIA [id number] [address] [place] [address] [place] Hemoglobin (Bld) [Mass/Vol] 13.9 g/dL Normal 13.0-17.0 [facility] Comment on above: Order Comment: Speci men Type: ARTERIAL BLOOD SPECIMEN Ordering Facility: [facility] Address: [address] [place], [place] [address] Performed By: #### A LLBG #### [facility] CLIA [id number] [address] [place] [address] [place] Lactate [Moles/Vol] 4.5 mmol/L High 0.5-2.2 [facility] Comment on above: Order Comment: Speci men Type: ARTERIAL BLOOD SPECIMEN Ordering Facility: [facility] Address: [address] [place], [place] [address] Performed By: #### A LLBG #### [facility] CLIA [id number] [address] [place] [address] [place] Methemoglobin (Bld) [Mass fraction] 1.1 % Normal 0.0-1.5 [facility] Comment on above: Order Comment: Speci men Type: ARTERIAL BLOOD SPECIMEN Ordering Facility: [facility] Address: [address] [place], [place] Performed By: #### A LLBG #### [facility] CLIA [id number] [address] [place] [id number] [place] Oxygen (BldV) [Partial pressure] 38 mm[Hg] Normal 35-45 [facility] Comment on above: Order Comment: Speci men Type: ARTERIAL BLOOD SPECIMEN Ordering Facility: [facility] Address: [address] Performed By: #### A LLBG #### [facility] CLIA [id number] [address] [place] [address] [place] Oxygen adjusted to patient's actual temperature (BldV) [Partial pressure] 38 mmHg Normal 35-45 [facility] Comment on above: Order Comment: Speci men Type: ARTERIAL BLOOD SPECIMEN Ordering Facility: [facility] Address: [address] [place], [place] Performed By: #### A LLBG #### [facility] CLIA [id number] [address] [address] [place] Oxygen saturation in Venous blood 61 % Normal 60-85 [facility] Comment on above: Order Comment: Speci men Type: ARTERIAL BLOOD SPECIMEN Ordering Facility: [facility] Address: [address] [place], [place] Performed By: #### A LLBG #### [facility] CLIA [id number] [address] [place] [id number] [place] Oxyhemoglobin (BldV) [Mass fraction] 60 % Normal 60-85 [facility] Comment on above: Order Comment: Speci men Type: ARTERIAL BLOOD SPECIMEN Ordering Facility: [facility] Address: [address] [place] [id number] Performed By: #### A LLBG #### [facility] CLIA [id number] [address] [place] [address] [place] pH (BldV) 7.24 [pH] Low 7.32-7.42 [facility] Comment on above: Order Comment: Speci men Type: ARTERIAL BLOOD SPECIMEN Ordering Facility: [facility] Address: [address] [place] [address] Performed By: #### A LLBG #### [facility] CLIA [id number] [address] [place] [address] [place] pH adjusted to patient's actual temperature (BldV) 7.24 Low 7.32-7.42 [facility] Comment on above: Order Comment: Speci men Type: ARTERIAL BLOOD SPECIMEN Ordering Facility: [facility] Address: [address] [place] [address] Performed By: #### A LLBG #### [facility] CLIA [id number] [address] [place] [address] [place] Potassium [Moles/Vol] 4.0 mmol/L Normal 3.5-5.0 [facility] Comment on above: Order Comment: Speci men Type: ARTERIAL BLOOD SPECIMEN Ordering Facility: [facility] Address: [address] [place], [place] [address] Performed By: #### A LLBG #### [facility] CLIA [id number] [address] [place] [address] [place] Sodium [Moles/Vol] 146 mmol/L High 136-144 [facility] Comment on above: Order Comment: Speci men Type: ARTERIAL BLOOD SPECIMEN Ordering Facility: [facility] Address: [address] [place], [place] [address] Performed By: #### A LLBG #### [facility] CLIA [id number] [address] [place] [address] [place] Base Deficit, Venous -4 mmol/L Low -2 - 0 mmol/L [facility] Calcium.ionized (Bld) [Mass/Vol] 1.13 mmol/L 1.08 - 1.30 mmol/L [facility] Calcium.ionized adjusted to pH 7.4 (BldA) [Moles/Vol] 1.12 mmol/L 1.08 - 1.30 mmol/L [facility] Carboxyhemoglobin (BldV) [Mass fraction] 0.7 % 0.0 - 2.0 % [facility] CO2 (BldV) [Partial pressure] 36 mm[Hg] Low 42 - 55 mmHg [facility] CO2 adjusted to patient's actual temperature (BldV) [Partial pressure] 36 mmHg Low 42 - 55 mmHg [facility] Glucose [Mass/Vol] 140 mg/dL High 60 - 105 mg/dL [facility] HCO3 (Bld) [Moles/Vol] 20 mmol/L Low 24 - 28 mmol/L [facility] Hematocrit (Bld) [Volume fraction] 38.7 % Low 39.0 - 51.0 % [facility] Hemoglobin (Bld) [Mass/Vol] 12.6 g/dL Low 13.0 - 17.0 g/dL [facility] Lactate [Moles/Vol] 0.8 mmol/L 0.5 - 2. 2 mmol/L [facility] Methemoglobin (Bld) [Mass fraction] 0.7 % 0.0 - 1.5 % [facility] Oxygen (BldV) [Partial pressure] 39 mm[Hg] 35 - 45 mmHg [facility] Oxygen adjusted to patient's actual temperature (BldV) [Partial pressure] 39 mmHg 35 - 45 mmHg [facility] Oxygen saturation in Venous blood 70 % 60 - 85 % [facility] Oxyhemoglobin (BldV) [Mass fraction] 69 % 60 - 85 % [facility] Patient Position Sitting Baseline [facility] pH (BldV) 7.37 [pH] 7.32 - 7.42 [facility] pH adjusted to patient's actual temperature (BldV) 7.37 7.32 - 7.42 [facility] Potassium [Moles/Vol] 3.6 mmol/L 3.5 - 5.0 mmol/L [facility] Sodium [Moles/Vol] 140 mmol/L 136 - 144 mmol/L [facility] BASE DEFICIT, VENOUS -4 mmol/L Low -2-0 [facility] Comment on above: Order Comment: Speci men Type: VENOUS BLOOD SPECIMEN Ordering Facility: [facility] Address: [address] [place] [address] Performed By: #### 2 4344-4 #### [facility] CLIA [id number] [address] [place] [address] [place] Calcium.ionized (Bld) [Mass/Vol] 1.27 mmol/L Normal 1.08-1.30 [facility] Comment on above: Order Comment: Speci men Type: VENOUS BLOOD SPECIMEN Ordering Facility: [facility] Address: [address] [place] [address] Performed By: #### 2 4344-4 #### [facility] CLIA [id number] [address] [place] [address] [place] Calcium.ionized adjusted to pH 7.4 (BldA) [Moles/Vol] 1.18 mmol/L Normal 1.08-1.30 [facility] Comment on above: Order Comment: Speci men Type: VENOUS BLOOD SPECIMEN Ordering Facility: [facility] Address: [address] [place] [address] Performed By: #### 2 4344-4 #### [facility] CLIA [id number] [address] [place] [address] [place] Carboxyhemoglobin (BldV) [Mass fraction] 0.7 % Normal 0.0-2.0 [facility] Comment on above: Order Comment: Speci men Type: VENOUS BLOOD SPECIMEN Ordering Facility: [facility] Address: [address] Result Comment: Carb oxyhemoglobin Reference Range for Smokers: 2.0-8.0% Performed By: #### 2 4344-4 #### [facility] CLIA [id number] [facility] [place] [address] [place] CO2 (BldV) [Partial pressure] 54 mm[Hg] Normal 42-55 [facility] Comment on above: Order Comment: Speci men Type: VENOUS BLOOD SPECIMEN Ordering Facility: [facility] Address: [address] Performed By: #### 2 4344-4 #### [facility] CLIA [id number] [address] [place] [address] [place] CO2 adjusted to patient's actual temperature (BldV) [Partial pressure] 54 mmHg Normal 42-55 [facility] Comment on above: Order Comment: Speci men Type: VENOUS BLOOD SPECIMEN Ordering Facility: [facility] Address: [address] Performed By: #### 2 4344-4 #### [facility] CLIA [id number] [address] [place] [address] [place] Glucose [Mass/Vol] 137 mg/dL High 60-105 [facility] Comment on above: Order Comment: Speci men Type: VENOUS BLOOD SPECIMEN Ordering Facility: [facility] Address: [address] Performed By: #### 2 4344-4 #### [facility] CLIA [id number] [address] [place] [address] [place] HCO3 (Bld) [Moles/Vol] 24 mmol/L Normal 24-28 [facility] Comment on above: Order Comment: Speci men Type: VENOUS BLOOD SPECIMEN Ordering Facility: [facility] Address: [address] Performed By: #### 2 4344-4 #### [facility] CLIA [id number] [address] [place] [address] [place] Hematocrit (Bld) [Volume fraction] 44.2 % Normal 39.0-51.0 [facility] Comment on above: Order Comment: Speci men Type: VENOUS BLOOD SPECIMEN Ordering Facility: [facility] Address: [address] Performed By: #### 2 4344-4 #### [facility] CLIA [id number] [address] [place] [address] [place] Hemoglobin (Bld) [Mass/Vol] 14.4 g/dL Normal 13.0-17.0 [facility] Comment on above: Order Comment: Speci men Type: VENOUS BLOOD SPECIMEN Ordering Facility: [facility] Address: [address] [place] [address] Performed By: #### 2 4344-4 #### [facility] CLIA [id number] [address] [place] [address] [place] Methemoglobin (Bld) [Mass fraction] 1.1 % Normal 0.0-1.5 [facility] Comment on above: Order Comment: Speci men Type: VENOUS BLOOD SPECIMEN Ordering Facility: [facility] Address: [address] [place] [address] Performed By: #### 2 4344-4 #### [facility] CLIA [id number] [address] [place] [address] [place] Oxygen (BldV) [Partial pressure] 26 mm[Hg] Low 35-45 [facility] Comment on above: Order Comment: Speci men Type: VENOUS BLOOD SPECIMEN Ordering Facility: [facility] Address: [address] [place], [place] [address] Performed By: #### 2 4344-4 #### [facility] CLIA [id number] [address] [place] [address] [place] Oxygen adjusted to patient's actual temperature (BldV) [Partial pressure] 26 mmHg Low 35-45 [facility] Comment on above: Order Comment: Speci men Type: VENOUS BLOOD SPECIMEN Ordering Facility: [facility] Address: [address] [place] [address] Performed By: #### 2 4344-4 #### [facility] CLIA [id number] [address] [place] [address] [place] Oxygen saturation in Venous blood 34 % Low 60-85 [facility] Comment on above: Order Comment: Speci men Type: VENOUS BLOOD SPECIMEN Ordering Facility: [facility] Address: [address] [place] [address] Performed By: #### 2 4344-4 #### [facility] CLIA [id number] [address] [place] [address] [place] Oxyhemoglobin (BldV) [Mass fraction] 33 % Low 60-85 [facility] Comment on above: Order Comment: Speci men Type: VENOUS BLOOD SPECIMEN Ordering Facility: [facility] Address: [address] Performed By: #### 2 4344-4 #### [facility] CLIA [id number] [address] [place] [address] [place] pH (BldV) 7.26 [pH] Low 7.32-7.42 [facility] Comment on above: Order Comment: Speci men Type: VENOUS BLOOD SPECIMEN Ordering Facility: [facility] Address: [address] [place] [address] Performed By: #### 2 4344-4 #### [facility] CLIA [id number] [address] [place] [address] [place] pH adjusted to patient's actual temperature (BldV) 7.26 Low 7.32-7.42 [facility] Comment on above: Order Comment: Speci men Type: VENOUS BLOOD SPECIMEN Ordering Facility: [facility] Address: [address] [place] [address] Performed By: #### 2 4344-4 #### [facility] CLIA [id number] [address] [place] [address] [place] Potassium [Moles/Vol] 4.8 mmol/L Normal 3.5-5.0 [facility] Comment on above: Order Comment: Speci men Type: VENOUS BLOOD SPECIMEN Ordering Facility: [facility] Address: [address] Performed By: #### 2 4344-4 #### [facility] CLIA [id number] [address] [place] [address] [place] Sodium [Moles/Vol] 144 mmol/L Normal 136-144 [facility] Comment on above: Order Comment: Speci men Type: VENOUS BLOOD SPECIMEN Ordering Facility: [facility] Address: [address] [place] [address] Performed By: #### 2 4344-4 #### [facility] CLIA [id number] [address] [place] [address] [place] BASE DEFICIT, VENOUS -4 mmol/L Low -2-0 [facility] Comment on above: Order Comment: Speci men Type: ARTERIAL BLOOD SPECIMEN Ordering Facility: [facility] Address: [address] [place] [address] Performed By: #### A LLBG #### [facility] CLIA [id number] [address] [place] [address] [place] Calcium.ionized (Bld) [Mass/Vol] 1.29 mmol/L Normal 1.08-1.30 [facility] Comment on above: Order Comment: Speci men Type: ARTERIAL BLOOD SPECIMEN Ordering Facility: [facility] Address: [address] Performed By: #### A LLBG #### [facility] CLIA [id number] [address] [place] [address] [place] Carboxyhemoglobin (BldV) [Mass fraction] 0.3 % Normal 0.0-2.0 [facility] Comment on above: Order Comment: Speci men Type: ARTERIAL BLOOD SPECIMEN Ordering Facility: [facility] Address: [address] [place] [address] Result Comment: Carb oxyhemoglobin Reference Range for Smokers: 2.0-8.0% Performed By: #### A LLBG #### [facility] CLIA [id number] [address] [place] [address] [place] CO2 (BldV) [Partial pressure] 50 mm[Hg] Normal 42-55 [facility] Comment on above: Order Comment: Speci men Type: ARTERIAL BLOOD SPECIMEN Ordering Facility: [facility] Address: [address] Performed By: #### A LLBG #### [facility] CLIA [id number] [address] [place] [address] [place] CO2 adjusted to patient's actual temperature (BldV) [Partial pressure] 50 mmHg Normal 42-55 [facility] Comment on above: Order Comment: Speci men Type: ARTERIAL BLOOD SPECIMEN Ordering Facility: [facility] Address: [address] [place], [place] [address] Performed By: #### A LLBG #### [facility] CLIA [id number] [address] [place] [address] [place] Glucose [Mass/Vol] 139 mg/dL High 60-105 [facility] Comment on above: Order Comment: Speci men Type: ARTERIAL BLOOD SPECIMEN Ordering Facility: [facility] Address: [address] [place], [place] [address] Performed By: #### A LLBG #### [facility] CLIA [id number] [address] [place] [address] [place] HCO3 (Bld) [Moles/Vol] 23 mmol/L Low 24-28 [facility] Comment on above: Order Comment: Speci men Type: ARTERIAL BLOOD SPECIMEN Ordering Facility: [facility] Address: [address] [place] [address] Performed By: #### A LLBG #### [facility] CLIA [id number] [address] [place] [id number] [place] Hematocrit (Bld) [Volume fraction] 42.4 % Normal 39.0-51.0 [facility] Comment on above: Order Comment: Speci men Type: ARTERIAL BLOOD SPECIMEN Ordering Facility: [facility] Address: [address] Performed By: #### A LLBG #### [facility] CLIA [id number] [address] [place] [address] [place] Hemoglobin (Bld) [Mass/Vol] 13.8 g/dL Normal 13.0-17.0 [facility] Comment on above: Order Comment: Speci men Type: ARTERIAL BLOOD SPECIMEN Ordering Facility: [facility] Address: [address] Performed By: #### A LLBG #### [facility] IA [id number] [address] [place] [address] [place] Lactate [Moles/Vol] 2.8 mmol/L High 0.5-2.2 [facility] Comment on above: Order Comment: Speci men Type: ARTERIAL BLOOD SPECIMEN Ordering Facility: [facility] Address: [address] Performed By: #### A LLBG #### [facility] CLIA [id number] [address] [place] [address] [place] Methemoglobin (Bld) [Mass fraction] 1.0 % Normal 0.0-1.5 [facility] Comment on above: Order Comment: Speci men Type: ARTERIAL BLOOD SPECIMEN Ordering Facility: [facility] Address: [address] [place] [id number] Performed By: #### A LLBG #### [facility] CLIA [id number] [address] [place] [address] [place] Oxygen (BldV) [Partial pressure] 28 mm[Hg] Low 35-45 [facility] Comment on above: Order Comment: Speci men Type: ARTERIAL BLOOD SPECIMEN Ordering Facility: [facility] Address: [address] Performed By: #### A LLBG #### [facility] CLIA [id number] [address] [place] [address] [place] Oxygen adjusted to patient's actual temperature (BldV) [Partial pressure] 28 mmHg Low 35-45 [facility] Comment on above: Order Comment: Speci men Type: ARTERIAL BLOOD SPECIMEN Ordering Facility: [facility] Address: [address] [place] [address] Performed By: #### A LLBG #### [facility] CLIA [id number] [address] [place] [address] [place] Oxygen saturation in Venous blood 41 % Low 60-85 [facility] Comment on above: Order Comment: Speci men Type: ARTERIAL BLOOD SPECIMEN Ordering Facility: [facility] Address: [address] [place], [place] [address] Performed By: #### A LLBG #### [facility] CLIA [id number] [address] [place] [address] [place] Oxyhemoglobin (BldV) [Mass fraction] 40 % Low 60-85 [facility] Comment on above: Order Comment: Speci men Type: ARTERIAL BLOOD SPECIMEN Ordering Facility: [facility] Address: [address] [place], [place] [address] Performed By: #### A LLBG #### [facility] CLIA [id number] [address] [place] [address] [place] pH (BldV) 7.28 [pH] Low 7.32-7.42 [facility] Comment on above: Order Comment: Speci men Type: ARTERIAL BLOOD SPECIMEN Ordering Facility: [facility] Address: [address] [place], [place] [address] Performed By: #### A LLBG #### [facility] CLIA [id number] [address] [place] [address] [place] pH adjusted to patient's actual temperature (BldV) 7.28 Low 7.32-7.42 [facility] Comment on above: Order Comment: Speci men Type: ARTERIAL BLOOD SPECIMEN Ordering Facility: [facility] Address: [address] Performed By: #### A LLBG #### [facility] CLIA [id number] [facility] [place] [address] [place] Potassium [Moles/Vol] 4.6 mmol/L Normal 3.5-5.0 [facility] Comment on above: Order Comment: Speci men Type: ARTERIAL BLOOD SPECIMEN Ordering Facility: [facility] Address: [address] Performed By: #### A LLBG #### [facility] CLIA [id number] [address] [place] [address] [place] Sodium [Moles/Vol] 147 mmol/L High 136-144 [facility] Comment on above: Order Comment: Speci men Type: ARTERIAL BLOOD SPECIMEN Ordering Facility: [facility] Address: [address] Performed By: #### A LLBG #### [facility] CLIA [id number] [address] [place] [address] [place] BASE DEFICIT, VENOUS -2 mmol/L Normal -2-0 [facility] Comment on above: Order Comment: Speci men Type: ARTERIAL BLOOD SPECIMEN Ordering Facility: [facility] Address: [address] Performed By: #### A LLBG #### [facility] CLIA [id number] [address] [place] [address] [place] Calcium.ionized (Bld) [Mass/Vol] 1.23 mmol/L Normal 1.08-1.30 [facility] Comment on above: Order Comment: Speci men Type: ARTERIAL BLOOD SPECIMEN Ordering Facility: [facility] Address: [address] Performed By: #### A LLBG #### [facility] CLIA [id number] [address] [place] [address] [place] Calcium.ionized adjusted to pH 7.4 (BldA) [Moles/Vol] 1.17 mmol/L Normal 1.08-1.30 [facility] Comment on above: Order Comment: Speci men Type: ARTERIAL BLOOD SPECIMEN Ordering Facility: [facility] Address: [address] [place] [address] Performed By: #### A LLBG #### [facility] CLIA [id number] [address] [place] [address] [place] Carboxyhemoglobin (BldV) [Mass fraction] 0.8 % Normal 0.0-2.0 [facility] Comment on above: Order Comment: Speci men Type: ARTERIAL BLOOD SPECIMEN Ordering Facility: [facility] Address: [address] [place] [address] Result Comment: Carb oxyhemoglobin Reference Range for Smokers: 2.0-8.0% Performed By: #### A LLBG #### [facility] CLIA [id number] [address] [place] [address] [place] CO2 (BldV) [Partial pressure] 47 mm[Hg] Normal 42-55 [facility] Comment on above: Order Comment: Speci men Type: ARTERIAL BLOOD SPECIMEN Ordering Facility: [facility] Address: [address] [place], [place] [id number] Performed By: #### A LLBG #### [facility] CLIA [id number] [address] [place] [address] [place] [place] CO2 adjusted to patient's actual temperature (BldV) [Partial pressure] 47 mmHg Normal 42-55 [facility] Comment on above: Order Comment: Speci men Type: ARTERIAL BLOOD SPECIMEN Ordering Facility: [facility] Address: [address] [place], [place] [id number] Performed By: #### A LLBG #### [facility] CLIA [id number] [address] [place] [address] [place] Glucose [Mass/Vol] 140 mg/dL High 60-105 [facility] Comment on above: Order Comment: Speci men Type: ARTERIAL BLOOD SPECIMEN Ordering Facility: [facility] Address: [address] [place] [address] Performed By: #### A LLBG #### [facility] CLIA [id number] [address] [place] [address] [place] HCO3 (Bld) [Moles/Vol] 23 mmol/L Low 24-28 [facility] Comment on above: Order Comment: Speci men Type: ARTERIAL BLOOD SPECIMEN Ordering Facility: [facility] Address: [address] [place], [place] [address] Performed By: #### A LLBG #### [facility] CLIA [id number] [address] [place] [address] [place] Hematocrit (Bld) [Volume fraction] 42.7 % Normal 39.0-51.0 [facility] Comment on above: Order Comment: Speci men Type: ARTERIAL BLOOD SPECIMEN Ordering Facility: [facility] Address: [address] [place], [place] [address] Performed By: #### A LLBG #### [facility] CLIA [id number] [address] [place] [address] [place] Hemoglobin (Bld) [Mass/Vol] 13.9 g/dL Normal 13.0-17.0 [facility] Comment on above: Order Comment: Speci men Type: ARTERIAL BLOOD SPECIMEN Ordering Facility: [facility] Address: [address] [place], [place] [address] Performed By: #### A LLBG #### [facility] CLIA [id number] [address] [place] [id number] [place] Lactate [Moles/Vol] 1.9 mmol/L Normal 0.5-2.2 [facility] Comment on above: Order Comment: Speci men Type: ARTERIAL BLOOD SPECIMEN Ordering Facility: [facility] Address: [address] Performed By: #### A LLBG #### [facility] CLIA [id number] [address] [place] [address] [place] Methemoglobin (Bld) [Mass fraction] 1.3 % Normal 0.0-1.5 [facility] Comment on above: Order Comment: Speci men Type: ARTERIAL BLOOD SPECIMEN Ordering Facility: [facility] Address: [address] Performed By: #### A LLBG #### [facility] CLIA [id number] [address] [place] [address] [place] Oxygen (BldV) [Partial pressure] 27 mm[Hg] Low 35-45 [facility] Comment on above: Order Comment: Speci men Type: ARTERIAL BLOOD SPECIMEN Ordering Facility: [facility] Address: [address] Performed By: #### A LLBG #### [facility] CLIA [id number] [address] [place] [address] [place] Oxygen adjusted to patient's actual temperature (BldV) [Partial pressure] 27 mmHg Low 35-45 [facility] Comment on above: Order Comment: Speci men Type: ARTERIAL BLOOD SPECIMEN Ordering Facility: [facility] Address: [address] [place] [address] Performed By: #### A LLBG #### [facility] CLIA [id number] [address] [place] [address] [place] Oxygen saturation in Venous blood 41 % Low 60-85 [facility] Comment on above: Order Comment: Speci men Type: ARTERIAL BLOOD SPECIMEN Ordering Facility: [facility] Address: [address] [place] [address] Performed By: #### A LLBG #### [facility] CLIA [id number] [address] [place] [address] [place] Oxyhemoglobin (BldV) [Mass fraction] 40 % Low 60-85 [facility] Comment on above: Order Comment: Speci men Type: ARTERIAL BLOOD SPECIMEN Ordering Facility: [facility] Address: [address] [place], [place] [address] Performed By: #### A LLBG #### [facility] CLIA [id number] [address] [place] [address] [place] pH (BldV) 7.32 [pH] Normal 7.32-7.42 [facility] Comment on above: Order Comment: Speci men Type: ARTERIAL BLOOD SPECIMEN Ordering Facility: [facility] Address: [address] [place], [place] [address] Performed By: #### A LLBG #### [facility] CLIA [id number] [address] [place] [address] [place] pH adjusted to patient's actual temperature (BldV) 7.32 Normal 7.32-7.42 [facility] Comment on above: Order Comment: Speci men Type: ARTERIAL BLOOD SPECIMEN Ordering Facility: [facility] Address: [address] [place], [place] [address] Performed By: #### A LLBG #### [facility] CLIA [id number] [address] [place] [address] [place] Potassium [Moles/Vol] 4.3 mmol/L Normal 3.5-5.0 [facility] Comment on above: Order Comment: Speci men Type: ARTERIAL BLOOD SPECIMEN Ordering Facility: [facility] Address: [address] [place] [address] Performed By: #### A LLBG #### [facility] CLIA [id number] [address] [place] [address] [place] BASE DEFICIT, VENOUS -2 mmol/L Normal -2-0 [facility] Comment on above: Order Comment: Speci men Type: VENOUS BLOOD SPECIMEN Ordering Facility: [facility] Address: [address] [place] [address] Performed By: #### 2 4344-4 #### [facility] CLIA [id number] [address] [place] [address] [place] Calcium.ionized (Bld) [Mass/Vol] 1.22 mmol/L Normal 1.08-1.30 [facility] Comment on above: Order Comment: Speci men Type: VENOUS BLOOD SPECIMEN Ordering Facility: [facility] Address: [address] [place] [address] Performed By: #### 2 4344-4 #### [facility] CLIA [id number] [address] [place] [address] [place] Calcium.ionized adjusted to pH 7.4 (BldA) [Moles/Vol] 1.18 mmol/L Normal 1.08-1.30 [facility] Comment on above: Order Comment: Speci men Type: VENOUS BLOOD SPECIMEN Ordering Facility: [facility] Address: [address] [place] [address] Performed By: #### 2 4344-4 #### [facility] CLIA [id number] [address] [place] [address] [place] Carboxyhemoglobin (BldV) [Mass fraction] 0.7 % Normal 0.0-2.0 [facility] Comment on above: Order Comment: Speci men Type: VENOUS BLOOD SPECIMEN Ordering Facility: [facility] Address: [address] Result Comment: Carb oxyhemoglobin Reference Range for Smokers: 2.0-8.0% Performed By: #### 2 4344-4 #### [facility] CLIA [id number] [address] [place] [address] [place] CO2 (BldV) [Partial pressure] 45 mm[Hg] Normal 42-55 [facility] Comment on above: Order Comment: Speci men Type: VENOUS BLOOD SPECIMEN Ordering Facility: [facility] Address: [address] Performed By: #### 2 4344-4 #### [facility] CLIA [id number] [address] [place] [address] [place] CO2 adjusted to patient's actual temperature (BldV) [Partial pressure] 45 mmHg Normal 42-55 [facility] Comment on above: Order Comment: Speci men Type: VENOUS BLOOD SPECIMEN Ordering Facility: [facility] Address: [address] Performed By: #### 2 4344-4 #### [facility] CLIA [id number] [address] [place] [address] [place] Glucose [Mass/Vol] 139 mg/dL High 60-105 [facility] Comment on above: Order Comment: Speci men Type: VENOUS BLOOD SPECIMEN Ordering Facility: [facility] Address: [address] Performed By: #### 2 4344-4 #### [facility] CLIA [id number] [address] [place] [address] [place] HCO3 (Bld) [Moles/Vol] 23 mmol/L Low 24-28 [facility] Comment on above: Order Comment: Speci men Type: VENOUS BLOOD SPECIMEN Ordering Facility: [facility] Address: [address] Performed By: #### 2 4344-4 #### [facility] CLIA [id number] [address] [place] [address] [place] Hematocrit (Bld) [Volume fraction] 42.1 % Normal 39.0-51.0 [facility] Comment on above: Order Comment: Speci men Type: VENOUS BLOOD SPECIMEN Ordering Facility: [facility] Address: [address] Performed By: #### 2 4344-4 #### [facility] CLIA [id number] [address] [place] [address] [place] Hemoglobin (Bld) [Mass/Vol] 13.7 g/dL Normal 13.0-17.0 [facility] Comment on above: Order Comment: Speci men Type: VENOUS BLOOD SPECIMEN Ordering Facility: [facility] Address: [address] Performed By: #### 2 4344-4 #### [facility] CLIA [id number] [address] [place] [address] [place] Lactate [Moles/Vol] 1.3 mmol/L Normal 0.5-2.2 [facility] Comment on above: Order Comment: Speci men Type: VENOUS BLOOD SPECIMEN Ordering Facility: [facility] Address: [address] Performed By: #### 2 4344-4 #### [facility] CLIA [id number] [address] [place] [address] [place] Methemoglobin (Bld) [Mass fraction] 1.0 % Normal 0.0-1.5 [facility] Comment on above: Order Comment: Speci men Type: VENOUS BLOOD SPECIMEN Ordering Facility: [facility] Address: [address] [place] [address] Performed By: #### 2 4344-4 #### [facility] CLIA [id number] [address] [place] [address] [place] Oxygen (BldV) [Partial pressure] 28 mm[Hg] Low 35-45 [facility] Comment on above: Order Comment: Speci men Type: VENOUS BLOOD SPECIMEN Ordering Facility: [facility] Address: [address] [place] [address] Performed By: #### 2 4344-4 #### [facility] CLIA [id number] [address] [id number] [address] [place] Oxygen adjusted to patient's actual temperature (BldV) [Partial pressure] 28 mmHg Low 35-45 [facility] Comment on above: Order Comment: Speci men Type: VENOUS BLOOD SPECIMEN Ordering Facility: [facility] Address: [address] [place] [address] Performed By: #### 2 4344-4 #### [facility] CLIA [id number] [address] [place] [address] [place] Oxygen saturation in Venous blood 46 % Low 60-85 [facility] Comment on above: Order Comment: Speci men Type: VENOUS BLOOD SPECIMEN Ordering Facility: [facility] Address: [address] [place], [place] [address] Performed By: #### 2 4344-4 #### [facility] CLIA [id number] [address] [place] [address] [place] Oxyhemoglobin (BldV) [Mass fraction] 45 % Low 60-85 [facility] Comment on above: Order Comment: Speci men Type: VENOUS BLOOD SPECIMEN Ordering Facility: [facility] Address: [address] [place], [place] [address] Performed By: #### 2 4344-4 #### [facility] CLIA [id number] [address] [place] [address] [place] pH (BldV) 7.33 [pH] Normal 7.32-7.42 [facility] Comment on above: Order Comment: Speci men Type: VENOUS BLOOD SPECIMEN Ordering Facility: [facility] Address: [address] [place], [place] [address] Performed By: #### 2 4344-4 #### [facility] CLIA [id number] [address] [place] [address] [place] pH adjusted to patient's actual temperature (BldV) 7.33 Normal 7.32-7.42 [facility] Comment on above: Order Comment: Speci men Type: VENOUS BLOOD SPECIMEN Ordering Facility: [facility] Address: [address] Performed By: #### 2 4344-4 #### [facility] CLIA [id number] [address] [place] [address] [place] Potassium [Moles/Vol] 4.2 mmol/L Normal 3.5-5.0 [facility] Comment on above: Order Comment: Speci men Type: VENOUS BLOOD SPECIMEN Ordering Facility: [facility] Address: [address] Performed By: #### 2 4344-4 #### [facility] CLIA [id number] [address] [place] [address] [place] Sodium [Moles/Vol] 143 mmol/L Normal 136-144 [facility] Comment on above: Order Comment: Speci men Type: VENOUS BLOOD SPECIMEN Ordering Facility: [facility] Address: [address] Performed By: #### 2 4344-4 #### [facility] CLIA [id number] [address] [place] [address] [place] BASE DEFICIT, VENOUS -2 mmol/L Normal -2-0 [facility] Comment on above: Order Comment: Speci men Type: VENOUS BLOOD SPECIMEN Ordering Facility: [facility] Address: [address] Performed By: #### 2 4344-4 #### [facility] CLIA [id number] [address] [place] [address] [place] Calcium.ionized (Bld) [Mass/Vol] 1.21 mmol/L Normal 1.08-1.30 [facility] Comment on above: Order Comment: Speci men Type: VENOUS BLOOD SPECIMEN Ordering Facility: [facility] Address: [address] Performed By: #### 2 4344-4 #### [facility] CLIA [id number] [address] [place] [address] [place] Calcium.ionized adjusted to pH 7.4 (BldA) [Moles/Vol] 1.19 mmol/L Normal 1.08-1.30 [facility] Comment on above: Order Comment: Speci men Type: VENOUS BLOOD SPECIMEN Ordering Facility: [facility] Address: [address] [place] [address] Performed By: #### 2 4344-4 #### [facility] CLIA [id number] [address] [place] [address] [place] Carboxyhemoglobin (BldV) [Mass fraction] 1.2 % Normal 0.0-2.0 [facility] Comment on above: Order Comment: Speci men Type: VENOUS BLOOD SPECIMEN Ordering Facility: [facility] Address: [address] [place] [address] Result Comment: Carb oxyhemoglobin Reference Range for Smokers: 2.0-8.0% Performed By: #### 2 4344-4 #### [facility] CLIA [id number] [address] [place] [address] [place] CO2 (BldV) [Partial pressure] 41 mm[Hg] Low 42-55 [facility] Comment on above: Order Comment: Speci men Type: VENOUS BLOOD SPECIMEN Ordering Facility: [facility] Address: [address] [place] [address] Performed By: #### 2 4344-4 #### [facility] CLIA [id number] [address] [place] [address] [place] CO2 adjusted to patient's actual temperature (BldV) [Partial pressure] 41 mmHg Low 42-55 [facility] Comment on above: Order Comment: Speci men Type: VENOUS BLOOD SPECIMEN Ordering Facility: [facility] Address: [address] [place], [place] [address] Performed By: #### 2 4344-4 #### [facility] CLIA [id number] [address] [place] [address] [place] Glucose [Mass/Vol] 140 mg/dL High 60-105 [facility] Comment on above: Order Comment: Speci men Type: VENOUS BLOOD SPECIMEN Ordering Facility: [facility] Address: [address] [place] [address] Performed By: #### 2 4344-4 #### [facility] CLIA [id number] [address] [place] [address] [place] HCO3 (Bld) [Moles/Vol] 23 mmol/L Low 24-28 [facility] Comment on above: Order Comment: Speci men Type: VENOUS BLOOD SPECIMEN Ordering Facility: [facility] Address: [address] [place], [place] [address] Performed By: #### 2 4344-4 #### [facility] CLIA [id number] [facility] [place] [address] [place] Hematocrit (Bld) [Volume fraction] 40.9 % Normal 39.0-51.0 [facility] Comment on above: Order Comment: Speci men Type: VENOUS BLOOD SPECIMEN Ordering Facility: [facility] Address: [address] [place], [place] [address] Performed By: #### 2 4344-4 #### [facility] CLIA [id number] [address] [place] [address] [place] Hemoglobin (Bld) [Mass/Vol] 13.3 g/dL Normal 13.0-17.0 [facility] Comment on above: Order Comment: Speci men Type: VENOUS BLOOD SPECIMEN Ordering Facility: [facility] Address: [address] [place], [place] [address] Performed By: #### 2 4344-4 #### [facility] CLIA [id number] [address] [place] [address] [place] Methemoglobin (Bld) [Mass fraction] 1.0 % Normal 0.0-1.5 [facility] Comment on above: Order Comment: Speci men Type: VENOUS BLOOD SPECIMEN Ordering Facility: [facility] Address: [address] [place] [address] Performed By: #### 2 4344-4 #### [facility] CLIA [id number] [address] [place] [id number] [place] Oxygen (BldV) [Partial pressure] 29 mm[Hg] Low 35-45 [facility] Comment on above: Order Comment: Speci men Type: VENOUS BLOOD SPECIMEN Ordering Facility: [facility] Address: [address] [place] [address] Performed By: #### 2 4344-4 #### [facility] CLIA [id number] [address] [place] [address] [place] Oxygen adjusted to patient's actual temperature (BldV) [Partial pressure] 29 mmHg Low 35-45 [facility] Comment on above: Order Comment: Speci men Type: VENOUS BLOOD SPECIMEN Ordering Facility: [facility] Address: [address] [place] [address] Performed By: #### 2 4344-4 #### [facility] CLIA [id number] [address] [place], [place] [address] [place] Oxygen saturation in Venous blood 49 % Low 60-85 [facility] Comment on above: Order Comment: Speci men Type: VENOUS BLOOD SPECIMEN Ordering Facility: [facility] Address: [address] [place] [id number] Performed By: #### 2 4344-4 #### [facility] CLIA [id number] [address] [place] [id number] [place] Oxyhemoglobin (BldV) [Mass fraction] 48 % Low 60-85 [facility] Comment on above: Order Comment: Speci men Type: VENOUS BLOOD SPECIMEN Ordering Facility: [facility] Address: [address] [place] [id number] Performed By: #### 2 4344-4 #### [facility] CLIA [id number] [address] [place] [address] [place] pH (BldV) 7.36 [pH] Normal 7.32-7.42 [facility] Comment on above: Order Comment: Speci men Type: VENOUS BLOOD SPECIMEN Ordering Facility: [facility] Address: [address] [place] [address] Performed By: #### 2 4344-4 #### [facility] CLIA [id number] [address] [place] [address] [place] pH adjusted to patient's actual temperature (BldV) 7.36 Normal 7.32-7.42 [facility] Comment on above: Order Comment: Speci men Type: VENOUS BLOOD SPECIMEN Ordering Facility: [facility] Address: [address] [place] [address] Performed By: #### 2 4344-4 #### [facility] CLIA [id number] [address] [place] [address] [place] Potassium [Moles/Vol] 4.1 mmol/L Normal 3.5-5.0 [facility] Comment on above: Order Comment: Speci men Type: VENOUS BLOOD SPECIMEN Ordering Facility: [facility] Address: [address] [place] [address] Performed By: #### 2 4344-4 #### [facility] CLIA [id number] [address] [place] [address] [place] BASE DEFICIT, VENOUS -4 mmol/L Low -2-0 [facility] Comment on above: Order Comment: Speci men Type: ARTERIAL BLOOD SPECIMEN Ordering Facility: [facility] Address: [address] [place], [place] [address] Performed By: #### A LLBG #### [facility] CLIA [id number] [address] [place] [address] [place] Calcium.ionized (Bld) [Mass/Vol] 1.13 mmol/L Normal 1.08-1.30 [facility] Comment on above: Order Comment: Speci men Type: ARTERIAL BLOOD SPECIMEN Ordering Facility: [facility] Address: [address] [place] [address] Performed By: #### A LLBG #### [facility] CLIA [id number] [address] [place] [address] [place] Calcium.ionized adjusted to pH 7.4 (BldA) [Moles/Vol] 1.12 mmol/L Normal 1.08-1.30 [facility] Comment on above: Order Comment: Speci men Type: ARTERIAL BLOOD SPECIMEN Ordering Facility: [facility] Address: [address] [place] [address] Performed By: #### A LLBG #### [facility] CLIA [id number] [address] [place] [address] [place] Carboxyhemoglobin (BldV) [Mass fraction] 0.7 % Normal 0.0-2.0 [facility] Comment on above: Order Comment: Speci men Type: ARTERIAL BLOOD SPECIMEN Ordering Facility: [facility] Address: [address] [place], [place] [address] Result Comment: Carb oxyhemoglobin Reference Range for Smokers: 2.0-8.0% Performed By: #### A LLBG #### [facility] CLIA [id number] [address] [place] [address] [place] CO2 (BldV) [Partial pressure] 36 mm[Hg] Low 42-55 [facility] Comment on above: Order Comment: Speci men Type: ARTERIAL BLOOD SPECIMEN Ordering Facility: [facility] Address: [address] [place], [place] [address] Performed By: #### A LLBG #### [facility] CLIA [id number] [facility] [place] [address] [place] CO2 adjusted to patient's actual temperature (BldV) [Partial pressure] 36 mmHg Low 42-55 [facility] Comment on above: Order Comment: Speci men Type: ARTERIAL BLOOD SPECIMEN Ordering Facility: [facility] Address: [address] Performed By: #### A LLBG #### [facility] CLIA [id number] [address] [place] [address] [place] Glucose [Mass/Vol] 140 mg/dL High 60-105 [facility] Comment on above: Order Comment: Speci men Type: ARTERIAL BLOOD SPECIMEN Ordering Facility: [facility] Address: [address] Performed By: #### A LLBG #### [facility] CLIA [id number] [address] [place] [address] [place] HCO3 (Bld) [Moles/Vol] 20 mmol/L Low 24-28 [facility] Comment on above: Order Comment: Speci men Type: ARTERIAL BLOOD SPECIMEN Ordering Facility: [facility] Address: [address] Performed By: #### A LLBG #### [facility] CLIA [id number] [address] [place] [address] [place] Hematocrit (Bld) [Volume fraction] 38.7 % Low 39.0-51.0 [facility] Comment on above: Order Comment: Speci men Type: ARTERIAL BLOOD SPECIMEN Ordering Facility: [facility] Address: [address] Performed By: #### A LLBG #### [facility] CLIA [id number] [address] [place] [address] [place] Hemoglobin (Bld) [Mass/Vol] 12.6 g/dL Low 13.0-17.0 [facility] Comment on above: Order Comment: Speci men Type: ARTERIAL BLOOD SPECIMEN Ordering Facility: [facility] Address: [address] Performed By: #### A LLBG #### [facility] CLIA [id number] [address] [place] [address] [place] Lactate [Moles/Vol] 0.8 mmol/L Normal 0.5-2.2 [facility] Comment on above: Order Comment: Speci men Type: ARTERIAL BLOOD SPECIMEN Ordering Facility: [facility] Address: [address] [place], [place] [id number] Performed By: #### A LLBG #### [facility] CLIA [id number] [address] [place] [address] [place] Methemoglobin (Bld) [Mass fraction] 0.7 % Normal 0.0-1.5 [facility] Comment on above: Order Comment: Speci men Type: ARTERIAL BLOOD SPECIMEN Ordering Facility: [facility] Address: [address] [place], [place] [id number] Performed By: #### A LLBG #### [facility] CLIA [id number] [address] [place] [address] [place] Oxygen (BldV) [Partial pressure] 39 mm[Hg] Normal 35-45 [facility] Comment on above: Order Comment: Speci men Type: ARTERIAL BLOOD SPECIMEN Ordering Facility: [facility] Address: [address] [place] [address] Performed By: #### A LLBG #### [facility] CLIA [id number] [address] [place] [address] [place] Oxygen adjusted to patient's actual temperature (BldV) [Partial pressure] 39 mmHg Normal 35-45 [facility] Comment on above: Order Comment: Speci men Type: ARTERIAL BLOOD SPECIMEN Ordering Facility: [facility] Address: [address] [place] [address] Performed By: #### A LLBG #### [facility] CLIA [id number] [address] [id number] [place] Oxygen saturation in Venous blood 70 % Normal 60-85 [facility] Comment on above: Order Comment: Speci men Type: ARTERIAL BLOOD SPECIMEN Ordering Facility: [facility] Address: [address] [place], [place] [address] Performed By: #### A LLBG #### [facility] CLIA [id number] [address] [place] [address] [place] Oxyhemoglobin (BldV) [Mass fraction] 69 % Normal 60-85 [facility] Comment on above: Order Comment: Speci men Type: ARTERIAL BLOOD SPECIMEN Ordering Facility: [facility] Address: [address] [place], [place] [address] Performed By: #### A LLBG #### [facility] CLIA [id number] [address] [place] [address] [place] pH (BldV) 7.37 [pH] Normal 7.32-7.42 [facility] Comment on above: Order Comment: Speci men Type: ARTERIAL BLOOD SPECIMEN Ordering Facility: [facility] Address: [address] [place], [place] [address] Performed By: #### A LLBG #### [facility] CLIA [id number] [address] [place] [address] [place] pH adjusted to patient's actual temperature (BldV) 7.37 Normal 7.32-7.42 [facility] Comment on above: Order Comment: Speci men Type: ARTERIAL BLOOD SPECIMEN Ordering Facility: [facility] Address: [address] [place] [address] Performed By: #### A LLBG #### [facility] CLIA [id number] [address] [place] [address] [place] Potassium [Moles/Vol] 3.6 mmol/L Normal 3.5-5.0 [facility] Comment on above: Order Comment: Speci men Type: ARTERIAL BLOOD SPECIMEN Ordering Facility: [facility] Address: [address] [place], [place] [address] Performed By: #### A LLBG #### [facility] CLIA [id number] [address] [place] [address] [place] Base Deficit, Venous -2 mmol/L -2 - 0 mmol/L [facility] Calcium.ionized (Bld) [Mass/Vol] 1.21 mmol/L 1.08 - 1.30 mmol/L [facility] Calcium.ionized adjusted to pH 7.4 (BldA) [Moles/Vol] 1.19 mmol/L 1.08 - 1.30 mmol/L [facility] Carboxyhemoglobin (BldV) [Mass fraction] 1.2 % 0.0 - 2.0 % [facility] CO2 (BldV) [Partial pressure] 39 mm[Hg] Low 42 - 55 mmHg [facility] CO2 adjusted to patient's actual temperature (BldV) [Partial pressure] 39 mmHg Low 42 - 55 mmHg [facility] Glucose [Mass/Vol] 136 mg/dL High 60 - 105 mg/dL [facility] HCO3 (Bld) [Moles/Vol] 22 mmol/L Low 24 - 28 mmol/L [facility] Hematocrit (Bld) [Volume fraction] 39.1 % 39.0 - 51.0 % [facility] Hemoglobin (Bld) [Mass/Vol] 12.7 g/dL Low 13.0 - 17.0 g/dL [facility] Lactate [Moles/Vol] 0.9 mmol/L 0.5 - 2. 2 mmol/L [facility] Methemoglobin (Bld) [Mass fraction] 0.6 % 0.0 - 1.5 % [facility] Oxygen (BldV) [Partial pressure] 39 mm[Hg] 35 - 45 mmHg [facility] Oxygen adjusted to patient's actual temperature (BldV) [Partial pressure] 39 mmHg 35 - 45 mmHg [facility] Oxygen saturation in Venous blood 72 % 60 - 85 % [facility] Oxyhemoglobin (BldV) [Mass fraction] 71 % 60 - 85 % [facility] Patient Position Supine Baseline [facility] pH (BldV) 7.38 [pH] 7.32 - 7.42 [facility] pH adjusted to patient's actual temperature (BldV) 7.38 7.32 - 7.42 [facility] Potassium [Moles/Vol] 3.9 mmol/L 3.5 - 5.0 mmol/L [facility] Sodium [Moles/Vol] 140 mmol/L 136 - 144 mmol/L [facility] BASE DEFICIT, VENOUS -2 mmol/L Normal -2-0 [facility] Comment on above: Order Comment: Speci men Type: VENOUS BLOOD SPECIMEN Ordering Facility: [facility] Address: [address] [place] [address] Performed By: #### 2 4344-4 #### [facility] CLIA [id number] [address] [place] [address] [place] Calcium.ionized (Bld) [Mass/Vol] 1.21 mmol/L Normal 1.08-1.30 [facility] Comment on above: Order Comment: Speci men Type: VENOUS BLOOD SPECIMEN Ordering Facility: [facility] Address: [address] [place] [address] Performed By: #### 2 4344-4 #### [facility] CLIA [id number] [address] [place] [address] [place] Calcium.ionized adjusted to pH 7.4 (BldA) [Moles/Vol] 1.19 mmol/L Normal 1.08-1.30 [facility] Comment on above: Order Comment: Speci men Type: VENOUS BLOOD SPECIMEN Ordering Facility: [facility] Address: [address] [place] [address] Performed By: #### 2 4344-4 #### [facility] CLIA [id number] [address] [place] [address] [place] Carboxyhemoglobin (BldV) [Mass fraction] 1.2 % Normal 0.0-2.0 [facility] Comment on above: Order Comment: Speci men Type: VENOUS BLOOD SPECIMEN Ordering Facility: [facility] Address: [address] [place] [address] Result Comment: Carb oxyhemoglobin Reference Range for Smokers: 2.0-8.0% Performed By: #### 2 4344-4 #### [facility] CLIA [id number] [address] [place] [address] [place] CO2 (BldV) [Partial pressure] 39 mm[Hg] Low 42-55 [facility] Comment on above: Order Comment: Speci men Type: VENOUS BLOOD SPECIMEN Ordering Facility: [facility] Address: [address] Performed By: #### 2 4344-4 #### [facility] CLIA [id number] [address] [place] [address] [place] CO2 adjusted to patient's actual temperature (BldV) [Partial pressure] 39 mmHg Low 42-55 [facility] Comment on above: Order Comment: Speci men Type: VENOUS BLOOD SPECIMEN Ordering Facility: [facility] Address: [address] [address] Performed By: #### 2 4344-4 #### [facility] CLIA [id number] [address] [place] [address] [place] Glucose [Mass/Vol] 136 mg/dL High 60-105 [facility] Comment on above: Order Comment: Speci men Type: VENOUS BLOOD SPECIMEN Ordering Facility: [facility] Address: [address] [place], [place] [address] Performed By: #### 2 4344-4 #### [facility] CLIA [id number] [address] [place] [address] [place] HCO3 (Bld) [Moles/Vol] 22 mmol/L Low 24-28 [facility] Comment on above: Order Comment: Speci men Type: VENOUS BLOOD SPECIMEN Ordering Facility: [facility] Address: [address] Performed By: #### 2 4344-4 #### [facility] CLIA [id number] [address] [place] [address] [place] Hematocrit (Bld) [Volume fraction] 39.1 % Normal 39.0-51.0 [facility] Comment on above: Order Comment: Speci men Type: VENOUS BLOOD SPECIMEN Ordering Facility: [facility] Address: [address] Performed By: #### 2 4344-4 #### [facility] CLIA [id number] [address] [place] [address] [place] Hemoglobin (Bld) [Mass/Vol] 12.7 g/dL Low 13.0-17.0 [facility] Comment on above: Order Comment: Speci men Type: VENOUS BLOOD SPECIMEN Ordering Facility: [facility] Address: [address] Performed By: #### 2 4344-4 #### [facility] CLIA [id number] [address] [place] [address] [place] Lactate [Moles/Vol] 0.9 mmol/L Normal 0.5-2.2 [facility] Comment on above: Order Comment: Speci men Type: VENOUS BLOOD SPECIMEN Ordering Facility: [facility] Address: [address] Performed By: #### 2 4344-4 #### [facility] CLIA [id number] [address] [place] [address] [place] Oxygen (BldV) [Partial pressure] 39 mm[Hg] Normal 35-45 [facility] Comment on above: Order Comment: Speci men Type: VENOUS BLOOD SPECIMEN Ordering Facility: [facility] Address: [address] [place] [address] Performed By: #### 2 4344-4 #### [facility] CLIA [id number] [address] [place] [address] [place] Oxygen adjusted to patient's actual temperature (BldV) [Partial pressure] 39 mmHg Normal 35-45 [facility] Comment on above: Order Comment: Speci men Type: VENOUS BLOOD SPECIMEN Ordering Facility: [facility] Address: [address] [place] [address] Performed By: #### 2 4344-4 #### [facility] CLIA [id number] [address] [place] [address] [place] Oxygen saturation in Venous blood 72 % Normal 60-85 [facility] Comment on above: Order Comment: Speci men Type: VENOUS BLOOD SPECIMEN Ordering Facility: [facility] Address: [address] [place] [address] Performed By: #### 2 4344-4 #### [facility] CLIA [id number] [address] [place] [address] [place] Oxyhemoglobin (BldV) [Mass fraction] 71 % Normal 60-85 [facility] Comment on above: Order Comment: Speci men Type: VENOUS BLOOD SPECIMEN Ordering Facility: [facility] Address: [address] [place], [place] [address] Performed By: #### 2 4344-4 #### [facility] CLIA [id number] [address] [place] [address] [place] pH (BldV) 7.38 [pH] Normal 7.32-7.42 [facility] Comment on above: Order Comment: Speci men Type: VENOUS BLOOD SPECIMEN Ordering Facility: [facility] Address: [address] [place] [address] Performed By: #### 2 4344-4 #### [facility] CLIA [id number] [address] [place] [address] [place] pH adjusted to patient's actual temperature (BldV) 7.38 Normal 7.32-7.42 [facility] Comment on above: Order Comment: Speci men Type: VENOUS BLOOD SPECIMEN Ordering Facility: [facility] Address: [address] [place], [place] [address] Performed By: #### 2 4344-4 #### [facility] CLIA [id number] [address] [place] [address] [place] Potassium [Moles/Vol] 3.9 mmol/L Normal 3.5-5.0 [facility] Comment on above: Order Comment: Speci men Type: VENOUS BLOOD SPECIMEN Ordering Facility: [facility] Address: [address] [address] Performed By: #### 2 4344-4 #### [facility] CLIA [id number] [address] [place] Sodium [Moles/Vol] 140 mmol/L Normal 136-144 [facility] Comment on above: Order Comment: Speci men Type: VENOUS BLOOD SPECIMEN Ordering Facility: [facility] Address: [address] [place] [address] Performed By: #### 2 4344-4 #### [facility] CLIA [id number] [address] [facility] Laboratory - Chemistry and C hemistry - challengeon 04-27-2023 Calcium.ionized adjusted to pH 7.4 (BldA) [Moles/Vol] 1.21 mmol/L 1.08 - 1.30 mmol/L [facility] No Panel Informationon 04-27 Patient Position [address] [facility] US VASCULAR (POC) FOR OZIEL US E ONLYon 04-27-2023 [facility] XR ARTERY CATHETER (POC) FOR OZIEL USE ONLYon 04-27-2023 [facility] CNPNon 04-18-2023 [facility] Telephone (SANJUANITA) -- JACINTA ROBLES ([id number]) 1945 M Date Time Provider Department 04/18/23 DEEPTI CERVANTES During your visit today, we recorded the following information about you: Deepti Cervantes MA 04/18/2023 10:54 AM Signed Called patient to confirm his iCPET with Dr. Flores on 04/27 at 1pm. NPO 4 hours pre-procedure. Anticoagulation:None at this time Must have a limb driver for transportation post procedure. May take other medications as prescribed prior to procedure. Check in at desk G-11 at 12:30pm Deepti Cervantes Clinical Heel Cover Softener [facility] Allergies As of Date: 04/18/2023 Noted Allergy Reaction PENICILLINS 12/08/2017 7 - Swelling Date Reviewed: 03/23/2023 Reviewed by: Lisa Liz, RN - Fully Assessed Reason for Visit: Appointment Confirmation [[id number]] Prescriptions as of 04/18/2023 - pramipexole (MIRAPEX) 0.125 mg tablet TAKE 1 TABLET BY MOUTH 2 HOURS BEFORE BEDTIME - CONTOUR TEST STRIPS test strip use 1 strip to check glucose once daily - tamsulosin (FLOMAX) 0.4 mg - montelukast (SINGULAIR) 10 mg tablet - ipratropium-albuterol (DUONEB) 0.5 mg-3 mg(2.5 mg base)/3 mL nebu Inhale 3 mL as instructed. - albuterol HFA (PROVENTIL HFA, VENTOLIN HFA) 90 mcg/actuation inhaler Inhale 2 Puffs as instructed every 6 hours as needed. - fluticasone-salmeterol (ADVAIR, WIXELA) 250-50 mcg/dose inhaler INHALE 1 DOSE BY MOUTH TWICE DAILY - escitalopram oxalate (LEXAPRO) 10 mg tablet Take 10 mg by mouth daily at bedtime. - Mirtazapine (REMERON) 7.5 mg tablet Take 7.5 mg by mouth daily at bedtime. - pravastatin (PRAVACHOL) 80 mg tablet - losartan (COZAAR) 100 mg tablet - amLODIPine (NORVASC) 5 mg tablet Facility-Administered Medications as of 04/18/2023 - perflutren lipid microspheres 1.3 mL in NaCl (PF) 0.9% 10 mL injection (DEFINITY) - sodium chloride 0.9 % (flush) 10 mL (BD POSIFLUSH) Problem List As Of Date 04/18/2023 Noted Resolved Prostate cancer (HCC) [C61] 12/19/2017 Encounter Status:Closed by DEEPTI CERVANTES on 04/18/23 Normal [facility] CBC AUTO DIFFon 12-26-2022 BASO # 0.1 103/ul Normal 0.0-0.1 [facility] Comment on above: Performed By: #### C BC #### [facility] [address] [address] [address] Ben Perdue Basophils/100 WBC (Bld) 0.6 % Normal 0.2-2.0 [facility] Comment on above: Performed By: #### C BC #### [facility] [address] [address] [address] Ben Perdue EO # 0.3 103/ul Normal 0.0-0.7 [facility] Comment on above: Performed By: #### C BC #### [facility] [address] [place] [address] Dr. Ben Perdue Eosinophils/100 WBC (Bld) 3.7 % Normal 0.9-7.0 [facility] Comment on above: Performed By: #### C BC #### [facility] [address] [place] [address] Dr. Ben Perdue Erythrocyte distribution width (RBC) [Ratio] 12.0 % Normal 11.0-15.0 [facility] Comment on above: Performed By: #### C BC #### [facility] [address] [place] [address] Dr. Ben Perdue Hematocrit (Bld) [Volume fraction] 39.2 % Critically low 42.0-54.0 [facility] Comment on above: Performed By: #### C BC #### [facility] [address] [address] [address] Ben Perdue Hemoglobin (Bld) [Mass/Vol] 13.1 g/dL Critically low 14.0-18.0 [facility] Comment on above: Performed By: #### C BC #### [facility] [address] [place] [address] Dr. Ben Perdue IG # 0.02 10e3/ul Normal 0.00-0.03 [facility] Comment on above: Performed By: #### C BC #### [facility] [address] [place] [address] Dr. Ben Perdue IG % 0.2 % Normal 0.0-0.5 [facility] Comment on above: Performed By: #### C BC #### [facility] [address] [place] [address] Dr. Ben Perdue LYMPH # 1.3 103/ul Normal 1.2-3.8 [facility] Comment on above: Performed By: #### C BC #### [facility] [address] [place] [address] Dr. Ben Perdue Lymphocytes/100 WBC (Bld) 16.1 % Critically low 20.5-60.0 [facility] Comment on above: Performed By: #### C BC #### [facility] [address] [place] [address] Dr. Ben Perdue MANUAL DIFF REQ NO Normal [facility] Comment on above: Performed By: #### C BC #### [facility] [address] [place] [address] Dr. Ben Perdue MCH (RBC) [Entitic mass] 30.8 pg Normal 25.9-34.0 [facility] Comment on above: Performed By: #### C BC #### [facility] [address] [place] [address] Dr. Ben Perdue MCHC (RBC) [Mass/Vol] 33.4 g/dL Normal 29.9-35.2 [facility] Comment on above: Performed By: #### C BC #### [facility] [address] [place] [address] Dr. Ben Perdue MCV (RBC) [Entitic vol] 92.0 fL Normal 80.0-94.0 [facility] Comment on above: Performed By: #### C BC #### [facility] [address] [place] [address] Dr. Ben Perdue MONO # 0.8 103/ul Normal 0.3-0.8 [facility] Comment on above: Performed By: #### C BC #### [facility] [address] [place] [address] Dr. Ben Perdue Monocytes/100 WBC (Bld) 9.5 % Normal 1.7-12.0 [facility] Comment on above: Performed By: #### C BC #### [facility] [address] [place] [address] Dr. Ben Perdue NEUT # 5.6 103/ul Normal 1.4-6.5 [facility] Comment on above: Performed By: #### C BC #### [facility] [address] [place] [address] Dr. Ben Perdue Neutrophils/100 WBC (Bld) 69.9 % Normal 43.0-75.0 [facility] Comment on above: Performed By: #### C BC #### [facility] [address] [place] [address] Dr. Ben Perdue Platelet mean volume (Bld) [Entitic vol] 9.7 fL Normal 9.5-13.5 [facility] Comment on above: Performed By: #### C BC #### [facility] [address] [place] [address] Dr. Ben Perdue PLT 240 103/ul Normal 150-450 [facility] Comment on above: Performed By: #### C BC #### [facility] [address] [place] [address] Dr. Ben Perdue RBC 4.26 106/ul Critically low 4.70-6.10 [facility] Comment on above: Performed By: #### C BC #### [facility] [address] [place] [address] Dr. Ben Perdue WBC 8.1 103/ul Normal 4.0-11.0 [facility] Comment on above: Performed By: #### C BC #### [facility] [address] [place] [address] ABD/PELVIS WO CONon 12-26 CT ABD/PELVIS WO CON EXAMINATION: CT ABD /PELVIS WO CON, 12/26/2022 5:09 PM EDT HISTORY: CALCULUS OF KIDNEY COMPARISON: 12/02/2020 TECHNIQUE: CT scan of the abdomen and pelvis was performed without IV contrast. CT dose reduction technique was used, including Automated Exposure Control. FINDINGS: LOWER CHEST: There is a trace right pleural effusion with right lower lobe subsegmental atelectasis. Small hiatal hernia. LIVER: Unremarkable. GALLBLADDER AND BILIARY SYSTEM: Cholelithiasis. No intra or extrahepatic biliary ductal dilatation. SPLEEN: Unremarkable. PANCREAS: Mild diffuse atrophy of the pancreas. No pancreatic ductal dilatation. ADRENAL GLANDS: Unremarkable. KIDNEYS AND URETERS: There is a 4 mm calculus at the left ureterovesicular junction resulting in mild left-sided hydroureteronephrosis. There is extensive left-sided perinephric stranding. Additional punctate nonobstructing calculus in the midpole the left kidney. Punctate nonobstructing calculus in the lower pole the left kidney. There is mild bilateral renal atrophy. There is a 2.9 cm cyst in the upper pole the left kidney. BLADDER: Under distended. GASTROINTESTINAL TRACT: There is sigmoid diverticulosis without evidence of diverticulitis. No evidence of bowel obstruction. Normal appendix. VASCULATURE: The abdominal aorta is normal in caliber. RETROPERITONEUM: No lymphadenopathy. PERITONEUM/MESENTERY: No abdominal ascites. No free air. PELVIS: No pelvic ascites or lymphadenopathy. BODY WALL: Small fat-containing umbilical hernia. BONES: No acute abnormality. IMPRESSION: 1. Obstructing 4 mm calculus at the left ureterovesicular junction resulting in mild left-sided hydroureteronephrosis. Extensive left-sided perinephric stranding. Punctate left-sided intrarenal calculi noted. Mild bilateral renal atrophy. 2. Cholelithiasis. 3. Trace right pleural effusion with right lower lobe subsegmental atelectasis. 4. Sigmoid diverticulosis without evidence of diverticulitis. Electronically authenticated by: AZALEA SOUZA Date: 2022-12-26 18:45 Normal [facility] URINE PROFILEon 3 Bilirubin Ql (U) Negative Normal NEGATIVE [facility] Comment on above: Performed By: #### U MICRO, ERUR ####[facility] [address] [address]DrSayda Perdue Clarity (U) CLEAR Normal CLEAR [facility] Comment on above: Performed By: #### U MICRO, ERUR ####[facility] [address] [id number][address] Ben Perdue Color (U) LT. YELLOW Normal YELLOW [facility] Comment on above: Performed By: #### U MICRO, ERUR ####[facility] [address] [place], [place] [address]Dr. Ben Perdue ERUAHD A micrscopic examina tion will be performed if indicated. Normal [facility] Comment on above: Performed By: #### U MICRO, ERUR ####[facility] [address] [place], [place] [address]Dr. Ben Perdue Glucose Ql (U) Negative Normal NEGATIVE [facility] Comment on above: Performed By: #### U MICRO, ERUR ####[facility] [address] [place], [place] [address]Dr. Ben Perdue Hemoglobin Ql (U) LARGE Abnormal NEGATIVE [facility] Comment on above: Performed By: #### U MICRO, ERUR ####[facility] [address] [place], [place] [address]Dr. Ben Perdue Ketones Ql (U) Negative Normal NEGATIVE [facility] Comment on above: Performed By: #### U MICRO, ERUR ####[facility] [address] [place], [place] [address]Dr. Ben Perdue LEUKOCYTES Negative Normal NEGATIVE [facility] Comment on above: Performed By: #### U MICRO, ERUR ####[facility] [address] [place], [place] [address]Dr. Ben Perdue Nitrite Ql (U) Negative Normal NEGATIVE [facility] Comment on above: Performed By: #### U MICRO, ERUR ####[facility] [address] [place], [place] [address]Dr. Ben Perdue pH (U) 5.5 [pH] Normal 5-9 [facility] Comment on above: Performed By: #### U MICRO, ERUR ####[facility] [address] [place], [place] [address]Dr. Ben Perdue SPEC GRAVITY 1.020 Normal 1.005-<=1.0 25 [facility] Comment on above: Performed By: #### U MICRO, ERUR ####[facility] [address] [address]Dr. Ben Perdue UA PROTEIN Negative Normal NEGATIVE/ TRACE [facility] Comment on above: Performed By: #### U MICRO, ERUR ####[facility] [address] [address]Dr. Ben Perdue UR MICRO IND INDICATED Normal [facility] Comment on above: Performed By: #### U MICRO, ERUR ####[facility] [address] [address]Dr. Ben Perdue Urobilinogen Qn (U) 0.2 {Johanna'U}/dL Normal 0.2 - 1. 0 [facility] Comment on above: Performed By: #### U MICRO, ERUR ####[facility] [address] [place], [place] [address]Dr. Ben Perdue PROF CHEM 8 (BAS METB)on Anion gap [Moles/Vol] 14.7 mmol/L Normal [facility] Comment on above: Performed By: #### B MP ####[facility] [address] [place], [place] [address]Dr. Bne Perdue Calcium [Mass/Vol] 8.8 mg/dL Normal 8.5-10.1 [facility] Comment on above: Performed By: #### B MP ####[facility] [address] [place], [place] [address]Dr. Ben Perdue Chloride [Moles/Vol] 105 mmol/L Normal 98-107 [facility] Comment on above: Performed By: #### B MP ####[facility] [address] [place], [place] [address]Dr. Ben Perdue CO2 [Moles/Vol] 24.5 mmol/L Normal 21.0-32.0 [facility] Comment on above: Performed By: #### B MP ####[facility] [address] [place], [place] [address]Dr. Ben Perdue Creatinine [Mass/Vol] 1.27 mg/dL Normal 0.70-1.30 [facility] Comment on above: Performed By: #### B MP ####[facility] [address] [place], [place] [address]Zk. Ben Perdue EGFR-AF SAMOAN >60 Normal >=60 [facility] Comment on above: Performed By: #### B MP ####[facility] [address] [place], [place] [address]Rv. Ben Perdue EGFR-NON AF SAMOAN 55 mL/min/1.73m2 Critically low >=60 [facility] Comment on above: Performed By: #### B MP ####[facility] [address] [place] [id number]. Ben Perdue Glucose [Mass/Vol] 141 mg/dL Critically high 74-106 [facility] Comment on above: Performed By: #### B MP ####[facility] [address] [place] [address]Dr. Ben Perdue Potassium [Moles/Vol] 4.2 mmol/L Normal 3.5-5.1 [facility] Comment on above: Performed By: #### B MP ####[facility] [address] [place] [id number]. Ben Perdue Sodium [Moles/Vol] 140 mmol/L Normal 136-145 [facility] Comment on above: Performed By: #### B MP ####[facility] [address] [place] [id number]. Ben Perdue Urea nitrogen [Mass/Vol] 29.0 mg/dL Critically high 7.0-18.0 [facility] Comment on above: Performed By: #### B MP ####[facility] [address] [place] [address]Dr. Ben Perdue Urea nitrogen/Creatinine [Mass ratio] 22.8 mg/mg Normal [facility] Comment on above: Performed By: #### B MP ####[facility] [address] [place] [address]Dr. Ben Perdue URINE MICROSCOPIC ONLYon BACTERIA TRACE Abnormal NONE SEEN [facility] Comment on above: Performed By: #### U MICRO, ERUR ####[facility] [address] [place] [address]Dr. Ben Perdue Bacteria identified Cx Nom (U) NOT INDICATED Normal [facility] Comment on above: Performed By: #### U MICRO, ERUR ####[facility] [address] [place] [address]Dr. Ben Perdue CAST NONE SEEN Normal NONE SEEN [facility] Comment on above: Performed By: #### U MICRO, ERUR ####[facility] [address] [place] [address]Dr. Ben Perdue Crystals LM Nom (Urine sed) NONE SEEN Normal NONE SEEN [facility] Comment on above: Performed By: #### U MICRO, ERUR ####[facility] [address] [place] [address]Dr. Ben Perdue Epithelial cells LM Ql (Urine sed) NONE SEEN Normal NONE SEEN /RARE [facility] Comment on above: Performed By: #### U MICRO, ERUR ####[facility] [address] [place] [address]Dr. Ben Perdue MUCOUS NONE SEEN Normal NONE SEEN [facility] Comment on above: Performed By: #### U MICRO, ERUR ####[facility] [address] [place] [address]Dr. Ben Perdue RBC 5-10 Abnormal 0-2 [facility] Comment on above: Performed By: #### U MICRO, ERUR ####[facility] [address] [place] [address]Dr. Ben Perdue WBC NONE SEEN Normal NONE SEEN [facility] Comment on above: Performed By: #### U MICRO, ERUR ####[facility] [address] [place] [address]DrSayda Perdue HEMOGLOBINon 06-02-2022 Hemoglobin (Bld) [Mass/Vol] 13.6 g/dL Critically low 14.0-18.0 [facility] Comment on above: Performed By: #### H GB #### [facility] [address] [place] [address] [address] Ben Perdue PULMONARY FUNCTION TESTon PULMONARY FUNCTION TEST PULMONARY FUNCTION TEST STUDY DATE: 05/27/2022 SIX MINUTE WALK STUDY INDICATION: Shortness of breath. Six minute walk study was initiated according to standard protocol. Baseline saturation was 95% on room air, heart rate 86, blood pressure of 140/70 with a Darshana Score of 5. Patient ambulated for six minutes, total length 304 meters. Darshana Score reached maximum of 7 with the lowest saturation 91% with a heart rate of 106. During recovery, oxygenation improved to 95% on room air, heart rate 90, with a blood pressure of 164/78. Total distance walked was 99% of or upper limit of normal. No ambulatory desaturations. IMPRESSIONS: Normal six minute walk study. No ambulatory desaturations noted. Clinical correlation required. Normal [facility] ECHOCARDIO M/2D COMPLETEon 0 05-04-2022 ECHOCARDIO M/2D COMPLETE Patient: JACINTA ROBLES Exam Date: 05/04/2022 : 1945 Gender:M Ordering : DR. MELANIE GAYLE . Admission #: [id number] Family : DR TAB BARFIELD D.Nuvia. Order #: [id number] CLICK HERE TO VIEW EXAM ECHOCARDIOGRAM REPORT PROCEDURE: CARDIO PULMONARY ECHOCARDIO M/2D COMP INDICATIONS: Shortness of breath, h/o lung cancer COMPARISON: None. DESCRIPTION: COMPLETE ECHOCARDIOGRAM Real-time transthoracic echocardiography with 2D, M-mode, spectral and color flow Doppler performed. QUALITY: Technical quality was good. 68 200# BP 168/74 LEFT VENTRICLE: Normal chamber size. Normal left ventricular wall thickness. Normal systolic function. LV EF: Normal left ventricular ejection fraction, (65%). DIASTOLIC: Diastolic function is indeterminate. ATRIAL SEPTUM: Visually appears intact. LEFT ATRIUM: Normal chamber size. RIGHT ATRIUM: Normal chamber size. RIGHT VENTRICLE: Moderately dilated. Mildly decreased right ventricular systolic function. TRICUSPID VALVE: Normal mobility and thickness. No stenosis with trivial regurgitation. Doppler studies reveal moderately (45-60) elevated right sided pressures. RVSP is 56 mmHg MITRAL VALVE: Normal mobility and thickness. No evidence of mitral valve stenosis. There is no mitral annular calcification. No mitral regurgitation. AORTIC VALVE: Normal trileaflet appearance. Normal leaflet mobility. No evidence of aortic valve stenosis. Multifocal calcifications. No aortic regurgitation. AORTIC ROOT: Normal diameter and appearance. PULMONIC VALVE: Normal thickness and mobility. No stenosis. Trivial regurgitation. PERICARDIUM: No evidence of pericardial effusion. IVC: Collapses with inspirations. PLEURA: CONCLUSION: 1. Normal left ventricular systolic function. LVEF is 65%. 2. Moderately dilated right ventricle with mildly reduced systolic function. 3. No significant valvular dysfunction. 4. Moderately elevated right-sided pressures. RVSP is 56 mmHg. 5. No pericardial effusion. Adult Echocardiography Procedure Report Left Ventricle LVEDD (3.7 - 5.6 cm): 4.55 cm LVESD (2.2 - 4.0 cm): 2.71 cm LVIVS thickness (0.6 - 1.2 cm): 0.98 cm LVPW thickness (0.5 - 1.0 cm): 0.94 cm e': 0.09 m/s E - e': 6.57 LVOT Max Gradient: 3.00 mm[Hg] Peak Velocity (LVOT): 0.87 m/s LVOT Diameter 2.06 cm Left Ventricular Ejection Fraction: 65% Left Atrium Left Atrium Systolic Dimension: 3.71 cm Mitral Valve MV E to A Ratio: 0.80 Mitral Valve A-Wave Peak Velocity: 0.76 m/s Mitral Valve E-Wave Peak Velocity: 0.61 m/s Right Ventricle Aorta AO Root Diam: 3.31 cm Aortic Valve AoV Area (Peak Kolton): 2.19 cm2, 2.19 cm2 Peak Velocity(Antegrade Flow): 1.32 m/s Peak Gradient(Antegrade Flow): 7.00 mm[Hg] Tricuspid Valve Peak Velocity (Regurgitant Flow): 3.63 m/s, 3.33 m/s Pulmonic Valve Peak Velocity: 0.87 m/s, 0.92 m/s Peak Gradient: 3.03 mm[Hg], 3.35 mm[Hg] Right Atrium Right Atrium Systolic Pressure: 14.59 ml, 14.59 ml Dictated by: Sav Liang M.D. on 05/06/2022 at 17:06 Approved by: Sav Liang M.D. on 05/06/2022 at 17:10 Normal [facility] TRANSFERRINon 04-28-2022 Transferrin [Mass/Vol] 255 mg/dL Normal 177-329 [facility] Comment on above: Performed By: #### T RANSFR ####[facility] [address] [place] [address]Dr. Ben Perdue CBC AUTO DIFFon 04-27-2022 BASO # 0.1 103/ul Normal 0.0-0.1 [facility] Comment on above: Performed By: #### R ETIC, CBC #### [facility] [address] [address] [address] Ben Perdue Basophils/100 WBC (Bld) 0.7 % Normal 0.2-2.0 [facility] Comment on above: Performed By: #### R ETIC, CBC #### [facility] [address] [place] [address] Dr. Ben Perdue EO # 0.3 103/ul Normal 0.0-0.7 [facility] Comment on above: Performed By: #### R ETIC, CBC #### [facility] [address] [place] [address] Dr. Ben Perdue Eosinophils/100 WBC (Bld) 3.6 % Normal 0.9-7.0 [facility] Comment on above: Performed By: #### R ETIC, CBC #### [facility] [address] [place] [address] Dr. Ben Perdue Erythrocyte distribution width (RBC) [Ratio] 11.8 % Normal 11.0-15.0 [facility] Comment on above: Performed By: #### R ETIC, CBC #### [facility] [address] [address] [address] Ben Perdue Hematocrit (Bld) [Volume fraction] 39.4 % Critically low 42.0-54.0 [facility] Comment on above: Performed By: #### R ETIC, CBC #### [facility] [address] [place] [address] Dr. Ben Perdue Hemoglobin (Bld) [Mass/Vol] 12.9 g/dL Critically low 14.0-18.0 [facility] Comment on above: Performed By: #### R ETIC, CBC #### [facility] [address] [place] [address] Dr. Ben Perdue IG # 0.04 10e3/ul Critically high 0.00-0.03 [facility] Comment on above: Performed By: #### R ETIC, CBC #### [facility] [address] [address] [address] Ben Perdue IG % 0.5 % Normal 0.0-0.5 [facility] Comment on above: Performed By: #### R ETIC, CBC #### [facility] [address] [address] [address] Ben Perdue LYMPH # 1.2 103/ul Normal 1.2-3.8 [facility] Comment on above: Performed By: #### R ETIC, CBC #### [facility] [address] [place] [address] Dr. Ben Perdue Lymphocytes/100 WBC (Bld) 14.9 % Critically low 20.5-60.0 [facility] Comment on above: Performed By: #### R ETIC, CBC #### [facility] [address] [place] [address] Dr. Ben Perdue MANUAL DIFF REQ NO Normal [facility] Comment on above: Performed By: #### R ETIC, CBC #### [facility] [address] [place] [address] Dr. Ben Perdue MCH (RBC) [Entitic mass] 30.6 pg Normal 25.9-34.0 [facility] Comment on above: Performed By: #### R ETIC, CBC #### [facility] [address] [address] [address] Ben Perdue MCHC (RBC) [Mass/Vol] 32.7 g/dL Normal 29.9-35.2 [facility] Comment on above: Performed By: #### R ETIC, CBC #### [facility] [address] [place] [address] Dr. Ben Perdue MCV (RBC) [Entitic vol] 93.6 fL Normal 80.0-94.0 [facility] Comment on above: Performed By: #### R ETIC, CBC #### [facility] [address] [place] [address] Dr. Ben Perdue MONO # 0.7 103/ul Normal 0.3-0.8 [facility] Comment on above: Performed By: #### R ETIC, CBC #### [facility] [address] [address] [address] Ben Perdue Monocytes/100 WBC (Bld) 8.1 % Normal 1.7-12.0 [facility] Comment on above: Performed By: #### R ETIC, CBC #### [facility] [address] [place] [address] Dr. Ben Perdue NEUT # 5.9 103/ul Normal 1.4-6.5 [facility] Comment on above: Performed By: #### R ETIC, CBC #### [facility] [address] [place] [address] Dr. Ben Perdue Neutrophils/100 WBC (Bld) 72.2 % Normal 43.0-75.0 [facility] Comment on above: Performed By: #### R ETIC, CBC #### [facility] [address] [place] [address] Dr. Ben Perdue Platelet mean volume (Bld) [Entitic vol] 9.7 fL Normal 9.5-13.5 [facility] Comment on above: Performed By: #### R ETIC, CBC #### [facility] [address] [place] [address] Dr. Ben Perdue PLT 231 103/ul Normal 150-450 [facility] Comment on above: Performed By: #### R ETIC, CBC #### [facility] [address] [place] [address] Dr. Ben Perdue RBC 4.21 106/ul Critically low 4.70-6.10 [facility] Comment on above: Performed By: #### R ETIC, CBC #### [facility] [address] [place] [address] Dr. Ben Perdue WBC 8.1 103/ul Normal 4.0-11.0 [facility] Comment on above: Performed By: #### R ETIC, CBC #### [facility] [address] [place], [place] [id number] Dr. Ben Perdue FERRITINon 04-27-2022 Ferritin [Mass/Vol] 213.0 ng/mL Normal 26.0-388.0 [facility] Comment on above: Performed By: #### F ERR, B12FOL, FETIBC #### [facility] [address] [place] [address] Dr. Ben Perdue IRON AND TIBCon 04-27-2022 % SATURATION 34.0 % Normal [facility] Comment on above: Performed By: #### F ERR, B12FOL, FETIBC #### [facility] [address] [place] [address] Dr. Ben Perdue Iron [Mass/Vol] 101.0 ug/dL Normal 65.0-175.0 [facility] Comment on above: Performed By: #### F ERR, B12FOL, FETIBC #### [facility] [address] [place] [address] Dr. Ben Perdue TIBC DIRECT 297.0 ug/dL Normal 250.0-450.0 [facility] Comment on above: Performed By: #### F ERR, B12FOL, FETIBC #### [facility] [address] [place] [address] Dr. Ben Perdue RETICULOCYTEon 04-27-2022 RETIC 1.42 % Normal 0.60-3.10 [facility] Comment on above: Performed By: #### R ETIC, CBC #### [facility] [address] [place] [address] Dr. Ben Perdue VIT B12 AND FOLATEon 022 Cobalamin (Vitamin B12) [Mass/Vol] 479.0 pg/mL Normal 193.0-986.0 [facility] Comment on above: Performed By: #### F ERR, B12FOL, FETIBC ####[facility] [address] [place] [address]Dr. Ben Perdue FOLATE 9.40 ng/mL Normal 8.60-58.90 [facility] Comment on above: Performed By: #### F ERR, B12FOL, FETIBC ####[facility] [address] [place], [place] [address]Fz. Ben Perdue CT CHEST WO CONon 03-08-2022 CT CHEST WO CON EXAMINATION: CT CHES T WO CON HISTORY: Primary malignant neoplasm of right lung COMPARISON: CT chest 11/30/2020, 02/14/2020 TECHNIQUE: Axial, Coronal, and Sagittal images were created without the administration of IV contrast material. Dose reduction techniques were achieved by using automated exposure control and/or adjustment of mA and/or kV according to patient size and/or use of iterative reconstruction technique. FINDINGS: LUNGS: Right upper lobe lobectomy with expected postsurgical changes. Stable 6 mm nodule within right middle lobe. Left lung is clear. PLEURA: Small-moderate right pleural effusion 1.3 cm in thickness extending from posterior lung base to apex. VASCULATURE: No abnormality. NEDA: Right hilar surgical changes and sutures. Stable calcified lymph node. MEDIASTINUM: Small calcified lymph nodes. CARDIAC: No enlargement or pericardial thickening. AORTA: No aneurysm or dissection. CHEST WALL: No mass or axillary adenopathy. BONES: No bone lesion or fracture. LIMITED ABDOMEN: No suspicious findings. Limited images of the upper abdomen. OTHER: Negative. IMPRESSION: 1. Postsurgical changes from right upper lobe lobectomy without appreciable recurrent neoplasm or lymphadenopathy. 2. Small to moderate right pleural effusion likely compensatory after lobectomy. No overtly suspicious findings. 3. Stable small right middle lobe nodule, nonspecific but favoring a granuloma. Electronically authenticated by: ARTURO JJ Date: 2022-03-08 08:41 Normal [facility] RIGHT HEART CATH O2 SATURATI ON & CARDIAC OUTPUT [facility] [place] Vital Signs Date Time Vital Sign Value Performing Clinician Facility 03-29-2024 14:040 Body mass index (BMI) [Ratio] 32.01 kg/m2 Gabe Banerjee MD Work Phone: [facility] [place] 03-29-2024 14:040 Body temperature 98.49 [degF] Gabe Banerjee MD Work Phone: [facility] [place] 03-29-2024 [id number]:19040 Body weight 93.6 kg Gabe Banerjee MD Work Phone: [facility] [place] 03-29-2024 14:19-0400 Diastolic blood pressure 69 mm[Hg] Gabe Banerjee MD Work Phone: [facility] [place] 03-29-2024 14:19-0400 Heart rate 72 /min Gabe Banerjee MD Work Phone: [facility] [place] 03-29-2024 14:19-0400 Respiratory rate 18 /min Gabe Banerjee MD Work Phone: [facility] [place] 03-29-2024 14:19-0400 SaO2% (BldA) [Mass fraction] 97 % Gabe Banerjee MD Work Phone: [facility] [place] 03-29-2024 14:19-0400 Systolic blood pressure 121 mm[Hg] Gabe Banerjee MD Work Phone: [facility] [place] 12-22-2023 14:21-0400 Body height 172.72 cm [facility] 12-22-2023 14:21-0400 Body mass index (BMI) [Ratio] 31.8 kg/m2 [facility] 12-22-2023 14:21-0400 Body weight 94.85 kg [facility] 12-22-2023 14:21-0400 Diastolic blood pressure 71 mm[Hg] [facility] 12-22-2023 14:21-0400 Heart rate 71 /min [facility] 12-22-2023 14:21-0400 Respiratory rate 20 /min [facility] 12-22-2023 14:21-0400 Systolic blood pressure 125 mm[Hg] [facility] 09-12-2023 15:00-0500 Body height 172.72 cm Tab Ball Other [employer] [facility] [employer] Other 09-12-2023 15:00-0500 Body mass index (BMI) [Ratio] 31.74 kg/m2 Tab Ball Other [employer] [facility] [employer] Other 09-12-2023 15:00-0500 Body weight 94.71 kg Tab Ball Other [employer] Other 09-12-2023 15:00-0500 Diastolic blood pressure 72 mm[Hg] Tab Ball Other [facility] [employer] Other 09-12-2023 15:00-0500 Respiratory rate 20 /min Tab Ball Other [facility] [employer] Other 09-12-2023 15:00-0500 Systolic blood pressure 119 mm[Hg] Tab Ball Other [facility] [employer] Other 06-22-2023 12:10-0500 Diastolic blood pressure 62 mm[Hg] DO Tab Ball Work Phone: [facility] 06-22-2023 12:10-0500 Heart rate 60 /min DO Tab Ball Work Phone: [facility] 06-22-2023 12:10-0500 Respiratory rate 16 /min DO Tab Ball Work Phone: [facility] 06-22-2023 12:10-0500 SaO2% (BldA) [Mass fraction] 98 % DO Tab Ball Work Phone: [facility] 06-22-2023 12:10-0500 Systolic blood pressure 121 mm[Hg] DO Tab Ball Work Phone: [facility] 06-22-2023 10:35-0500 Body height 172.72 cm DO Tab Ball Work Phone: [facility] 06-22-2023 10:35-0500 Body weight 95.25 kg DO Tab Ball Work Phone: [facility] 06-20-2023 11:15-0500 Body height 172.72 cm Tab Ball Other [facility] [employer] Other 06-20-2023 11:15-0500 Body mass index (BMI) [Ratio] 31.87 kg/m2 Tab Ball Other [facility] [employer] Other 06-20-2023 11:15-0500 Body weight 95.07 kg Tab Ball Other [employer] Other 06-20-2023 11:15-0500 Diastolic blood pressure 75 mm[Hg] Tab Ball Other [employer] Other 06-20-2023 11:15-0500 Respiratory rate 20 /min Tab Ball Other [employer] Other 06-20-2023 11:15-0500 Systolic blood pressure 128 mm[Hg] Tab Ball Other [employer] Other 05-02-2023 14:00-0400 Body height 172.72 cm Tab Ball Other [employer] Other 05-02-2023 14:00-0400 Body mass index (BMI) [Ratio] 32.26 kg/m2 Tab Ball Other [employer] Other 05-02-2023 14:00-0400 Body weight 96.25 kg Tab Ball Other [employer] Other 05-02-2023 14:00-0400 Diastolic blood pressure 61 mm[Hg] Tab Ball Other [employer] Other 05-02-2023 14:00-0400 Respiratory rate 20 /min Tab Ball Other [employer] Other 05-02-2023 14:00-0400 SaO2% (BldA) [Mass fraction] 98 % Tab Ball Other [employer] Other 05-02-2023 14:00-0400 Systolic blood pressure 119 mm[Hg] Tab Ball Other [employer] Other 04-27-2023 14:37-0400 SaO2% (BldA) [Mass fraction] 98 % Pulm Rm Work Phone: [facility] [place] 04-27-2023 14:36-0400 SaO2% (BldA) [Mass fraction] 99 % Pulm Rm Work Phone: [facility] [place] 04-27-2023 14:34-0400 SaO2% (BldA) [Mass fraction] 93 % Pulm Rm Work Phone: [facility] [place] 04-27-2023 14:32-0400 SaO2% (BldA) [Mass fraction] 94 % Pulm Rm Work Phone: [facility] [place] 04-27-2023 14:32-0400 SaO2% (BldA) [Mass fraction] 97 % Pulm Rm Work Phone: [facility] [place] 04-27-2023 14:29-0400 SaO2% (BldA) [Mass fraction] 95 % Pulm Rm Work Phone: [facility] [place] 04-27-2023 14:28-0400 SaO2% (BldA) [Mass fraction] 96 % Pulm Rm Work Phone: [facility] [place] 04-27-2023 14:26-0400 SaO2% (BldA) [Mass fraction] 98 % GABE BANERJEE [facility] Comment on above: Order Comment: Specimen Type: ARTERIAL B LOOD SPECIMEN Ordering Facility: [facility] Address: [address] [place], [place] [id number] Performed By: #### A LLBG #### [facility] CLIA [id number] [address] [place] [address] OF [facility] 04-27-2023 14:22-0400 SaO2% (BldA) [Mass fraction] 99 % GABE BANERJEE [facility] Comment on above: Order Comment: Specimen Type: VENOUS BLO OD SPECIMEN Ordering Facility: [facility] Address: [address] [place], [place] [id number] Performed By: #### 2 4344-4 #### [facility] CLIA [id number] [facility] [address] 04-27-2023 14:21-0400 SaO2% (BldA) [Mass fraction] 98 % Pulm Rm Work Phone: [facility] 04-27-2023 14:20-0400 SaO2% (BldA) [Mass fraction] 95 % Pulm Rm Work Phone: [facility] 04-27-2023 14:20-0400 SaO2% (BldA) [Mass fraction] 97 % GABE BANERJEE [facility] Comment on above: Order Comment: Specimen Type: ARTERIAL B LOOD SPECIMEN Ordering Facility: [facility] Address: [address] [place] [address] Performed By: #### A LLBG #### [facility] CLIA [id number] [address] [place] [address] 04-27-2023 14:18-0400 SaO2% (BldA) [Mass fraction] 93 % GABE BANERJEE [facility] Comment on above: Order Comment: Specimen Type: ARTERIAL B LOOD SPECIMEN Ordering Facility: [facility] Address: [address] [place] [address] Performed By: #### A LLBG #### [facility] CLIA [id number] [address] [place] [address] 04-27-2023 14:17-0400 SaO2% (BldA) [Mass fraction] 94 % GABE BANERJEE [facility] Comment on above: Order Comment: Specimen Type: VENOUS BLO OD SPECIMEN Ordering Facility: [facility] Address: [address] [place] [address] Performed By: #### 2 [id number] #### [facility] CLIA [id number] [address] [place] [address] [place] 04-27-2023 14:15-0400 SaO2% (BldA) [Mass fraction] 95 % GABE BANERJEE [facility] Comment on above: Order Comment: Specimen Type: ARTERIAL B LOOD SPECIMEN Ordering Facility: [facility] Address: [address] [place] [address] Performed By: #### A LLBG #### [facility] CLIA [id number] [address] [place], [place] [id number] [facility] 04-27-2023 14:13-0400 SaO2% (BldA) [Mass fraction] 96 % GABE BANERJEE [facility] Comment on above: Order Comment: Specimen Type: ARTERIAL B LOOD SPECIMEN Ordering Facility: [facility] Address: [address] [place] [address] Performed By: #### A LLBG #### [facility] CLIA [id number] [address] [place] [address] 04-27-2023 14:12-0400 SaO2% (BldA) [Mass fraction] 95 % GABE BANERJEE [facility] Comment on above: Order Comment: Specimen Type: VENOUS BLO OD SPECIMEN Ordering Facility: [facility] Address: [address] [place] [address] Performed By: #### 2 4344-4 #### [facility] CLIA [id number] [address] [place], [place] [id number] [facility] 04-27-2023 14:10-0400 SaO2% (BldA) [Mass fraction] 98 % GABE BANERJEE [facility] Comment on above: Order Comment: Specimen Type: ARTERIAL B LOOD SPECIMEN Ordering Facility: [facility] Address: [address] [place] [address] Performed By: #### A LLBG #### [facility] CLIA [id number] [address] [id number] [facility] 04-27-2023 14:08-0400 SaO2% (BldA) [Mass fraction] 99 % Pulm Rm Work Phone: [facility] 04-27-2023 14:06-0400 SaO2% (BldA) [Mass fraction] 97 % Pulm Rm Work Phone: [facility] 04-27-2023 13:52-0400 SaO2% (BldA) [Mass fraction] 97 % GABE BANERJEE [facility] Comment on above: Order Comment: Specimen Type: ARTERIAL B LOOD SPECIMEN Ordering Facility: [facility] Address: [address] [place] [address] Performed By: #### A LLBG #### [facility] CLIA [id number] [address] [place] [address] [place] 04-27-2023 13:51-0400 SaO2% (BldA) [Mass fraction] 99 % GABE BANERJEE [facility] Comment on above: Order Comment: Specimen Type: VENOUS BLO OD SPECIMEN Ordering Facility: [facility] Address: [address] [place] [address] Performed By: #### 2 [id number] #### [facility] CLIA [id number] [address] [place] [address] [place] [address] [place] 12-20-2022 15:30-0400 Body height 172.72 cm Tab Ball Other [employer] Other 12-20-2022 15:30-0400 Body mass index (BMI) [Ratio] 32.41 kg/m2 Tab Ball Other [employer] Other 12-20-2022 15:30-0400 Body weight 96.71 kg Tab Ball Other [employer] Other 12-20-2022 15:30-0400 Diastolic blood pressure 65 mm[Hg] Tab Ball Other [employer] Other 12-20-2022 15:30-0400 Respiratory rate 20 /min Tab Ball Other [employer] Other 12-20-2022 15:30-0400 SaO2% (BldA) [Mass fraction] 97 % Tab Ball Other [employer] Other 12-20-2022 15:30-0400 Systolic blood pressure 111 mm[Hg] Tab Ball Other [employer] Other 12-20-2022 14:30-0400 Body height 172.72 cm Tab Ball Other [employer] Other 12-20-2022 14:30-0400 Body mass index (BMI) [Ratio] 32.41 kg/m2 Tab Ball Other [employer] Other 12-20-2022 14:30-0400 Body weight 96.71 kg Tab Ball Other [employer] Other 12-20-2022 14:30-0400 Diastolic blood pressure 65 mm[Hg] Tab Ball Other [employer] Other 12-20-2022 14:30-0400 Respiratory rate 20 /min Tab Ball Other [employer] Other 12-20-2022 14:30-0400 SaO2% (BldA) [Mass fraction] 97 % Tab Ball Other [employer] Other 12-20-2022 14:30-0400 Systolic blood pressure 111 mm[Hg] Tab Ball Other [employer] Other 03-24-2022 15:31-0400 Body height 175.3 cm Gabe Banerjee MD Work Phone: [facility] 03-24-2022 15:31-0400 Body temperature 97.39 [degF] Gabe Banerjee MD Work Phone: [facility] 03-24-2022 15:31-0400 Body weight 92.53 kg Gabe Banerjee MD Work Phone: [facility] 03-24-2022 15:31-0400 Diastolic blood pressure 56 mm[Hg] Gabe Banerjee MD Work Phone: [facility] 03-24-2022 15:31-0400 Heart rate 67 /min Gabe Banerjee MD Work Phone: [facility] 03-24-2022 15:31-0400 Respiratory rate 16 /min Gabe Banerjee MD Work Phone: [facility] 03-24-2022 15:31-0400 SaO2% (BldA) [Mass fraction] 97 % Gabe Banerjee MD Work Phone: [facility] 03-24-2022 15:31-0400 Systolic blood pressure 129 mm[Hg] Gabe Banerjee MD Work Phone: [facility] Encounters Encounter Date Encounter Type Care Provider Facility Start: 03-29-2024 End: 04-01-2024 ambulatory GABE BANERJEE Facility:[facility] Start: 03-29-2024 End: 04-01-2024 Patient encounter procedure Gabe Banerjee MD Work Phone: Radiation Oncology Comment on above: Malignant neoplasm o f prostate (HCC) (Primary Dx) Start: 03-20-2024 End: 03-20-2024 ambulatory TAB BARFIELD Facility:[facility] Start: 12-22-2023 End: 12-22-2023 ambulatory [facility] Work Phone: Start: 12-22-2023 End: 12-22-2023 Patient encounter procedure [facility] Work Phone: Start: 09-12-2023 End: 09-12-2023 ambulatory Tab Ball Other [employer] Other Start: 09-12-2023 Office outpatient vi sit 15 minutes Tab Ball [facility] Start: 07-13-2023 End: 07-13-2023 ambulatory Tab Ball Other [employer] Other Start: 07-13-2023 Telephone encounter Tab Ball [facility] Start: 06-28-2023 End: 06-28-2023 ambulatory Tab Ball Other [employer] Other Start: 06-28-2023 Telephone encounter Tab Barfield [facility] [employer] Start: 06-26-2023 End: 06-26-2023 ambulatory Tab Ball Other [employer] Other Start: 06-26-2023 Telephone encounter Tab Ball [facility] Start: 06-22-2023 Telephone encounter Tab Ball [facility] Start: 06-22-2023 End: 06-22-2023 ambulatory Jamar Wray Facility:[facility] Start: 06-22-2023 End: 06-22-2023 Admission to same day surgery center DO Tab Ball Work Phone: [facility] Work Phone: Start: 06-22-2023 End: 06-22-2023 ambulatory DO Tab Ball Work Phone: [facility] Work Phone: Start: 06-20-2023 End: 06-20-2023 ambulatory Tab Ball Other [employer] Other Start: 06-20-2023 Office outpatient vi sit 15 minutes Tab Ball [facility] Start: 06-20-2023 Telephone encounter Tab Ball [facility] Start: 05-29-2023 End: 05-29-2023 ambulatory Tab Ball Other [employer] Other Start: 05-29-2023 Telephone encounter [facility] Start: 05-22-2023 End: 05-22-2023 ambulatory Tab Barfield Other [employer] Other Start: 05-22-2023 Telephone encounter [facility] Start: 05-18-2023 End: 05-18-2023 ambulatory Tab Barfield Other [employer] Other Start: 05-18-2023 Telephone encounter [facility] Start: 05-09-2023 End: 05-09-2023 ambulatory Tab Barfield Other [employer] Other Start: 05-09-2023 Telephone encounter [facility] Start: 05-02-2023 End: 05-02-2023 ambulatory Tab Barfield Other [employer] Other Start: 05-02-2023 Office outpatient vi sit 25 minutes [facility] Start: 04-27-2023 End: 04-27-2023 ambulatory Juan Jose Flores MD Work Phone: Pulmonary Medicine Start: 04-27-2023 [facility] Start: 04-27-2023 End: 05-04-2023 Patient encounter procedure Juan Jose Flores MD Work Phone: [facility] Comment on above: PAH (pulmonary arter y hypertension) (HCC) (Primary Dx); Exercise intolerance Start: 04-27-2023 Telephone encounter [facility] Start: 04-18-2023 Telephone encounter Deepti Cervantes MA [facility] Comment on above: Appointment Confirma tion Start: 03-24-2023 End: 03-24-2023 ambulatory Tab Barfield Other [employer] Other Start: 03-24-2023 Telephone encounter [facility] Start: 03-21-2023 End: 03-21-2023 ambulatory Tab Barfield Other [employer] Other Start: 03-21-2023 Telephone encounter [facility] Start: 02-06-2023 End: 02-06-2023 ambulatory Tab Barfield Other [employer] Other Start: 02-06-2023 Telephone encounter [facility] Start: 01-19-2023 Chart abstracting Kaitlin Murcia APRN.[employer]ADER [employer]SEMBL[employer] Work Phone: Pulmonary Medicine Comment on above: Opened In Error Start: 01-10-2023 End: 01-10-2023 ambulatory Tab Barfield Other [employer] Other Start: 01-10-2023 Telephone encounter [facility] Start: 12-27-2022 End: 12-27-2022 ambulatory Tab Barfield Other [employer] Other Start: 12-27-2022 Telephone encounter [facility] Start: 12-26-2022 End: 12-26-[address] TAB BARFIELD Facility:[facility] Start: 12-23-2022 Telephone encounter No One (Historic al) Referring Physician Comment on above: External Referrals/r esources Start: 12-20-2022 End: 12-20-2022 ambulatory Tab Barfield Other [employer] Other Start: 12-20-2022 Patient encounter procedure [facility]field [facility] Start: 06-15-2022 End: 06-16-2022 ambulatory MELANIE SAMSA . Facility:[facility] Start: 06-02-2022 End: 06-03-2022 ambulatory MELANIE SAMSA . Facility:[facility] Start: 05-27-2022 End: 05-28-2022 ambulatory MELANIE SAMSA . Facility:[facility] Start: 05-04-2022 End: 05-05-2022 ambulatory MELANIE SAMSA . Facility:[facility] Start: 04-27-2022 End: 04-28-2022 ambulatory MELANIE GAYLE . Facility: Start: 04-05-2022 Adult health examination Yo Barfield Other [facility] [employer] Other Start: 03-24-2022 End: 03-24-2022 Patient encounter procedure Gabe Banerjee MD Work Phone: Radiation Oncology Comment on above: Prostate cancer (HCC ) (Primary Dx) Start: 03-07-2022 End: 03-08-2022 ambulatory MELANIE GAYLE . Facility: Procedures Date Procedure Procedure Detail Performing Clinician Start: 06-22-2023 Colonoscopy DO Tyron monisha Tyrese Work Phone: Start: 04-27-2023 Right heart cath o2 saturation & cardiac output Juan Jose Flores MD Work Phone: Start: 04-27-2023 End: 04-27-2023 Assay of ammonia Juan Jose Flores MD Work Phone: Start: 04-27-2023 End: 04-27-2023 Gases blood ph direct teofilo xcpt pulse oximitry Juan Jose Flores MD Work Phone: Start: 04-27-2023 XR ARTERY CATHETER ( POC) FOR OZIEL USE ONLY Juan Jose Flores MD Work Phone: Start: 04-27-2023 US VASCULAR (POC) FO R OZIEL USE ONLY Juan Jose Flores MD Work Phone: Start: 03-25-2021 Adult depression scr eening assessment Gabe Banerjee MD Work Phone: Start: 06-27-2016 Screening for malign ant neoplasm of colon Tab Barfield Other Start: 06-27-2016 Screening for malign ant neoplasm of prostate Tab Tyrese Other Hyperlipidemia screening Edson jana Barfield Other Plan of Treatment Date Care Activity Detail Author Start: 03-03-2026 DIABETES SCREEN DIABETES SCREEN [facility] Start: 03-03-2026 Diabetes Screening Diabetes Screenin g [facility] Start: 04-04-2025 End: 04-04-2025 Patient encounter procedure 04/04/2025 2:00 PM EDT Office Visit Radiation Oncology [address] [place] [address] Gabe Banerjee MD [address] [place] [address] [place] [address] 2 yr rv Radiation Oncology Comment on above: 2 yr rv Start: 03-29-2025 End: 06-28-2025 Prostate specific Ag [Mass/volume] in Serum or Plasma PROSTATE-SPECIFIC ANTIGEN DIAGNOSTIC Lab Routine Malignant neoplasm of prostate (HCC) Expected: 03/29/2025, Expires: 06/28/2025 [facility] Work Phone: Comment on above: Expected: 03/29/2025 , Expires: 06/28/2025 Start: 03-28-2025 End: 03-28-2025 Patient encounter procedure 03/28/2025 1:00 PM EDT Office Visit [facility] [address] [place] [address] [facility] Comment on above: lab Start: 04-14-2024 Influenza vaccination Influenza Vacc ine (#1) [facility] Start: 02-17-2024 DIABETES SCREEN DIABETES SCREEN [facility] Start: 10-29-2023 Covid-19 Vaccine ( season) Covid-19 Vaccine ( season) [facility] Start: 08-14-2023 Advance Directive Discussion Advance Directive Discussion [facility] Start: 06-22-2023 [facility] Start: 04-14-[address] [facility] Start: 03-24-2023 End: 05-24-2023 Prostate specific Ag [Mass/volume] in Serum or Plasma PSA/PROSTSPECAG DIAG Lab Routine Prostate cancer (HCC) Expected: 03/24/2023, Expires: 05/24/2023 [facility] Work Phone: Comment on above: Expected: 03/24/2023 , Expires: 05/24/2023 Start: 01-16-2023 ambulatory Ambulatory Facility:[facility] Start: 11-02-2022 COVID-19 VACCINE (6 - Pfizer series) COVID-19 VACCINE (6 - Pfizer series) [facility] Start: 08-14-2022 ADVANCE DIRECTIVE DISCUSSION ADVANCE DIRECTIVE DISCUSSION [facility] Start: 08-14-2022 DEPRESSION ASSESSMENT DEPRESSION ASS ESSMENT [facility] Start: 05-04-2022 COVID-19 VACCINE (5 - Booster for Pfizer series) COVID-19 VACCINE (5 - Booster for Pfizer series) [facility] Start: 04-14-2022 Influenza vaccination INFLUENZA (#1) [facility] Start: 03-25-2022 Adult depression screening assessment DEPRESSION SCREENING [facility] Start: 08-14-2021 ADVANCE DIRECTIVE DISCUSSION ADVANCE DIRECTIVE DISCUSSION [facility] Start: 06-05-2014 Urine microalbumin profile DTaP,Tdap,Td Vaccine (1 - Tdap) [facility] Start: 2011 PNEUMOCOCCAL: 65+ (1 - PCV) PNEUMOCOCCAL: 65+ (1 - PCV) [facility] Start: 1996 SHINGRIX VACCINE (1 of 2) SHINGRIX VACCINE (1 of 2) [facility] Start: 1991 COLOGUARD (FIT-DNA) COLOGUARD (FIT-D NA) [facility] Start: 1991 Colonoscopy COLONOSCOPY [facility] Start: 1991 COLORECTAL CANCER SCREENING COLORECTAL CANCER SCREENING [facility] Start: [address] COLONOGRAPHY [facility] Start: 1991 FECAL OCCULT BLOOD FECAL OCCULT BLOO D [facility] Start: 1991 SIGMOIDOSCOPY SIGMOIDOSCOPY [facility] Start: 1981 LIPID SCREEN LIPID SCREEN [facility] Start: 1965 Urine microalbumin profile [facility] Start: 1964 Anxiety Screening Anxiety Screening [facility] Start: 1964 Depression Screening Depression Scre ening [facility] Start: 1964 HEPATITIS C SCREENING HEPATITIS C [facility] Start: 1964 Hepatitis C screening Hepatitis C [facility] Patient Education Colon polyps [facility] Work Phone: [facility] Immunizations Immunization Date Immunization Notes Care Provider Telma miller 05-02-2023 influenza, high dose seasonal, preservative-free Tab Barfield Other [facility] [employer] Other 05-02-2023 influenza virus vaccine, unspecified formulation [facility] 07-05-2022 COVID-19 Pfizer (bivalent) Tab Barfield Other [facility] 05-06-2022 influenza (aIIV4) vaccine, age 65+ yr, quadrivalent, PF (FLUAD QUAD) Deepti Cervantes MA [facility] 05-06-2022 influenza virus vaccine, split virus (incl. purified surface antigen) Tab Barfield Other [employer] [facility] [employer] Other 05-06-2022 influenza, high dose seasonal, preservative-free Tab Barfield Other [facility] [employer] Other 05-06-2022 influenza virus vaccine, unspecified formulation Juan Jose Flores MD Work Phone: [facility] 04-06-2022 Prevnar 20 Tab Barfield Other [facility] 03-09-2022 COVID-19 Pfizer Tab lindsay Other [facility] 05-21-2021 Do not use COVID-19 Pfizer 2 dose Tab Barfield Other [facility] 05-05-2021 influenza virus vaccine, split virus (incl. purified surface antigen) Tab Barfield Other [facility] [employer] Other 05-05-2021 influenza virus vaccine, unspecified formulation [facility] 05-05-2021 Seasonal trivalent influenza vaccine, adjuvanted, preservative free Gabe Banerjee MD Work Phone: [facility] 10-07-2020 COVID-19 vaccine, ag e 12+ yr (Cellrox-[employer] - PURPLE TOP) Gabe Banerjee MD Work Phone: [facility] 09-17-2020 COVID-19 vaccine, ag e 12+ yr (Cellrox-[employer] - PURPLE TOP) Gabe Banerjee MD Work Phone: [facility] 04-27-2020 influenza virus vaccine, split virus (incl. purified surface antigen) Tab Barfield Other [employer] Other 04-27-2020 influenza virus vaccine, unspecified formulation [facility] 05-01-2019 AS03 adjuvant Gabe Banerjee MD Work Phone: [facility] 05-01-2019 Seasonal trivalent influenza vaccine, adjuvanted, preservative free Gabe Banerjee MD Work Phone: [facility] 06-16-2017 influenza virus vaccine, split virus (incl. purified surface antigen) Tab Barfield Other [employer] [facility] [employer] Other 06-16-2017 influenza virus vaccine, unspecified formulation [facility] 06-04-2014 tetanus and diphther ia toxoids, adsorbed, preservative free, for adult use (5 Lf of tetanus toxoid and 2 Lf of diphtheria toxoid) Tab Barfield Other [facility] 05-08-2013 tetanus and diphther ia toxoids, adsorbed, preservative free, for adult use (5 Lf of tetanus toxoid and 2 Lf of diphtheria toxoid) Tab Barfield Other [facility] pneumococcal Conjuga te, unspecified formulation; Translations: [Need for prophylactic vaccination against Streptococcus pneumoniae (pneumococcus)] Tab Barfield Other [facility] [employer] Other Payers Date Payer Category Payer Self-pay [id number] 2019 Unknown MMO MMO MEDICARE SUPPLEMENT [id number] 2019-Present [phone] [address] [place] [address] Indemnity [id number] 2011 Medicare [id number] 1959 Medicare [id number] 1959 Unknown [id number] 1946 Unknown [id number] 1946 Unknown [id number] 1946 Unknown [id number] 1946 Unknown [id number] 1946 Unknown [id number] 1946 Unknown [id number] 1946 Unknown [id number] 1946 Unknown [id number] Unknown [employer] C o [id number] Social History Date Type Detail Facility Start: 03-24-2022 End: 07-12-2023 Tobacco smoking status NHIS Ex-smoker [facility] Start: 12-09-1967 End: 12-08-1997 History of tobacco use Current smoker [facility] Start: 12-09-1967 End: 12-08-1997 History of tobacco use Cigarette Smoker [facility] Start: 03-24-2022 End: 03-03-2023 Cigarettes smoked current (pack per day) - Reported 2 [facility] Start: 03-24-2022 Tobacco use and exposure Smokeless tobacco non-user [facility] Start: 03-24-2022 End: 03-29-2024 Alcohol intake Current drinker of alcohol (finding) [facility] Start: 1945 Sex Assigned At Not on file C [facility] Start: 03-14-2022 End: 03-24-2022 Exposure to SARS-CoV-2 (event) Not sure [facility] Start: 03-03-2023 End: 03-29-2024 Sex Assigned At [facility] Adult Depression Screening Assessment 0 [facility] Start: 1945 Sex Assigned At Male F [facility] NEGATED: Highlighted rowStart: NINF History of tobacco use Passive smoker [facility] Medical Equipment Procedure Code Equipment Code Equipment Origin al Text Equipment Identifier Dates use 1 strip to check glucose once daily Start: 01-23-2023 Comment on above: use 1 strip to check glucose once daily Goals Date Patient Goal Desired Activity /State Clinical Notes 03-24-2022 to 03-29-2024 Gabe Banerjee MD - 03/29/2024 2:16 PM EDT Note Date & Type Note Facility 03-29-2024 History of Present illness Narrative Radiation Oncology - Follow Up Note PATIENT NAME: Jacinta Robles PATIENT DIAGNOSIS/PATIENT IDENTIFICATION: Mr. Robles is a 78-year old gentleman with Stage IIIA, [id number] adenocarcinoma of the prostate; high recurrence risk (cT1c, PSA 5.7, GS 4+4=8/10). Prostate MRI showed no evidence of seminal vesicle invasion or extracapsular extension or pelvic lymphadenopathy. He completed a course of definitive EBRT on 03/30/2018 (7920 cGy in 44 fractions) with ADT (18 months). INTERVAL HISTORY/ROS: Mr. Robles returns to clinic today for routine follow-up approximately six years after the completion of his radiation treatments and one year since his last visit on 03/23/2023. In the interim, Date PSA (ng/mL) 10/31/2107 5.71 11/13/2017 Biopsy 12/25/2017 Started ADT 03/30/2018 Completed XRT 07/02/2018 <0.03 12/25/2018 <0.03 09/30/2019 <0.1 03/27/2020 0.03 03/23/2021 0.08 03/17/2022 0.18 09/29/2022 0.16 03/03/2023 0.23 10/10/2023 0.2 03/20/2024 0.21 He otherwise denies any recent fevers, chills, headaches, difficulty with speech/swallowing, shortness of breath, chest pain/palpitations, abdominal pain, nausea, vomiting, change in bowel/urinary habits, difficulty with gait/balance, recent falls, etc. The remainder of the review of systems was performed and was otherwise noncontributory. ALLERGIES ALLERGIES Allergen Reactions Penicillins Swelling MEDICATIONS: Current Outpatient Medications: pramipexole (MIRAPEX) 0.125 mg tablet CONTOUR TEST STRIPS test strip tamsulosin (FLOMAX) 0.4 mg montelukast (SINGULAIR) 10 mg tablet ipratropium-albuterol (DUONEB) 0.5 mg-3 mg(2.5 mg base)/3 mL nebu albuterol HFA (PROVENTIL HFA, VENTOLIN HFA) 90 mcg/actuation inhaler fluticasone-salmeterol (ADVAIR, WIXELA) 250-50 mcg/dose inhaler escitalopram oxalate (LEXAPRO) 10 mg tablet Mirtazapine (REMERON) 7.5 mg tablet pravastatin (PRAVACHOL) 80 mg tablet losartan (COZAAR) 100 mg tablet amLODIPine (NORVASC) 5 mg tablet Current Facility-Administered Medications: perflutren lipid microspheres 1.3 mL in NaCl (PF) 0.9% 10 mL injection (DEFINITY) sodium chloride 0.9 % (flush) 10 mL (BD POSIFLUSH) PHYSICAL EXAM: GENERAL: elderly gentleman sitting in chair in no acute distress. VITALS: BP 121/69 Pulse 72 Temp 98.5 Resp 18 Wt 206 lb 5.6 oz (93.6kg) SpO2 97% KPS: 80 HEENT: NC/AT, anicteric sclera HEART: S1S2 LUNGS: non-labored breathing ABDOMEN: soft MUSCULOSKELETAL: no peripheral edema, moves all extremities. NEURO: no focal deficit; A&O X3. ASSESSMENT AND PLAN: Mr. Robles is a 78-year old gentleman with Stage IIIA, [id number] adenocarcinoma of the prostate; high recurrence risk (cT1c, PSA 5.7, GS 4+4=8/10). Prostate MRI showed no evidence of seminal vesicle invasion or extracapsular extension or pelvic lymphadenopathy. He completed a course of definitive EBRT on 03/30/2018 (7920 cGy in 44 fractions) with ADT (18 months). Signed by: Gabe Banerjee MD I spent a total of 20 minutes on the date of the service which included preparing to see the patient, [id number] patient care, and counseling and educating the patient/family/caregiver. This document has been created with the use of voice recognition technology. It may contain inaccuracies, misspellings, inaccurate syntax or inappropriate word context that are a result of the inadequacies/shortcomings of said technology/software. documented in this encounter [facility] 03-29-2024 Note HNO ID: [id number] Author: GABE BANERJEE MD Service: ? Author Type: Physician Type: Progress Notes Filed: 04/09/2024 05:23 Note Text: Radiation Oncology - Follow Up Note PATIENT NAME: Jacinta Robles PATIENT DIAGNOSIS/PATIENT IDENTIFICATION: Mr. Robles is a 78-year old gentleman with Stage IIIA, [id number] adenocarcinoma of the prostate; high recurrence risk (cT1c, PSA 5.7, GS 4+4=8/10). Prostate MRI showed no evidence of seminal vesicle invasion or extracapsular extension or pelvic lymphadenopathy. He completed a course of definitive EBRT on 03/30/2018 (7920 cGy in 44 fractions) with ADT (18 months). INTERVAL HISTORY/ROS: Mr. Robles returns to clinic today for routine follow-up approximately six years after the completion of his radiation treatments and one year since his last visit on 03/23/2023. In the interim, he denies any burning/discomfort with urination and notes nocturia once. He denies any trouble starting his stream or straining and notes no weakening of his stream or incomplete emptying or hematuria or incontinence/leakage. He reports regular bowel movements without pain or blood or diarrhea. He denies any nausea but does note fatigue with dyspnea on exertion. He is currently being monitored for a lesion in the left lung. His IPSS score today is 4/35 with QOL 2 ('mostly satisfied') and SHANNON score of NA/25. His most recent PSA drawn earlier this month on 03/20/2024 decreased to 0.21 ng/mL from previous value of 0.23 ng/mL approximately a year ago on 03/03/2023. He did have a PSA drawn while he was in [place] on 10/10/2023 which returned at 0.2 ng/mL. Date PSA (ng/mL) 10/31/2107 5.71 11/13/2017 Biopsy 12/25/2017 Started ADT 03/30/2018 Completed XRT 07/02/2018 <0.03 12/25/2018 <0.03 09/30/2019 <0.1 03/27/2020 0.03 03/23/2021 0.08 03/17/2022 0.18 09/29/2022 0.16 03/03/2023 0.23 10/10/2023 0.2 03/20/2024 0.21 He otherwise denies any recent fevers, chills, headaches, difficulty with speech/swallowing, chest pain/palpitations, abdominal pain, nausea, vomiting, change in bowel habits, difficulty with gait/balance, recent falls, etc. The remainder of the review of systems was performed and was otherwise noncontributory. ALLERGIES ALLERGIES Allergen Reactions Penicillins Swelling MEDICATIONS: Current Outpatient Medications: pramipexole (MIRAPEX) 0.125 mg tablet CONTOUR TEST STRIPS test strip tamsulosin (FLOMAX) 0.4 mg montelukast (SINGULAIR) 10 mg tablet ipratropium-albuterol (DUONEB) 0.5 mg-3 mg(2.5 mg base)/3 mL nebu albuterol HFA (PROVENTIL HFA, VENTOLIN HFA) 90 mcg/actuation inhaler fluticasone-salmeterol (ADVAIR, WIXELA) 250-50 mcg/dose inhaler escitalopram oxalate (LEXAPRO) 10 mg tablet Mirtazapine (REMERON) 7.5 mg tablet pravastatin (PRAVACHOL) 80 mg tablet losartan (COZAAR) 100 mg tablet amLODIPine (NORVASC) 5 mg tablet Current Facility-Administered Medications: perflutren lipid microspheres 1.3 mL in NaCl (PF) 0.9% 10 mL injection (DEFINITY) sodium chloride 0.9 % (flush) 10 mL (BD POSIFLUSH) PHYSICAL EXAM: GENERAL: elderly gentleman sitting in chair in no acute distress. VITALS: BP 121/69 Pulse 72 Temp 98.5 Resp 18 Wt 206 lb 5.6 oz (93.6kg) SpO2 97% KPS: 80 HEENT: NC/AT, anicteric sclera HEART: S1S2 LUNGS: non-labored breathing ABDOMEN: soft MUSCULOSKELETAL: no peripheral edema, moves all extremities. NEURO: no focal deficit; AANDO X3. ASSESSMENT AND PLAN: Mr. Rboles is a 78-year old gentleman with Stage IIIA, [id number] adenocarcinoma of the prostate; high recurrence risk (cT1c, PSA 5.7, GS 4+4=8/10). Prostate MRI showed no evidence of seminal vesicle invasion or extracapsular extension or pelvic lymphadenopathy. He completed a course of definitive EBRT on 03/30/2018 (7920 cGy in 44 fractions) with ADT (18 months). Mr. Robles is doing well clinically approximately 6 years after the completion of his radiation treatments to the prostate with stable urinary function at this time. His PSA remains fairly stable as his most recent PSA drawn earlier this month on 03/20/2024 decreased to 0.21 ng/mL from previous value of 0.23 ng/mL approximately a year ago on 03/03/2023. He did have a PSA drawn while he was in [place] on 10/10/2023 which returned at 0.2 ng/mL. I will plan to see him back in approximately 1 year with repeat PSA. The patient is aware to contact the clinic in the interim should any questions or concerns arise. Thank you for allowing us to participate in the care of this patient. Signed by: Gabe Banerjee MD I spent a total of 20 minutes on the date of the service which included preparing to see the patient, [id number] patient care, and counseling and educating the patient/family/caregiver. This document has been created with the use of voice recognition technology. It may contain inaccuracies, misspellings, inaccurate syntax or inappropriate word context courtney (more content not included)... [facility] 09-12-2023 Evaluation note Encounter Date Diagnosis Assessment Notes Aug, Primary hypertension (ICD-10 - I10) This patient is instructed to consume a healthy, low-fat, low-salt diet. They are also encouraged to continue exercise to achieve/maintain a normal BMI. Patient is instructed on home BP measurements: - rest for 5 minutes w/o talking.- positioned w/ feet on floor and arm supported.- average best 2/3 readings w/ goal < 135/85.- update office w/ home readings in 2 weeks. Aug, Type 2 diabetes mellitus with hyperglycemia, without long-term current use of insulin (ICD-10 - E11.65) This patient is following a comprehensive diabetic treatment plan. They are checking their feet daily for calluses and nonhealing ulcers. They are being seen for yearly dilated eye examinations. Goals: SBP less than 130, LDL less than 100, FBS less than 140, A1C less than 7%. They are checking their BS daily, will which are reviewed at the office visit. Continue regular routine monitoring of A1C, Microalbumin, Dilated eye exam and Foot exam Aug, Stage 3a chronic kidney disease (ICD-10 - N18.31) The patient is instructed on adequate control of hypertension and diabetes, if appropriate. They are also educated on the associated risks of NSAIDs and PPI use with kidney disease. They were instructed on adequate fluid balance and to avoid dehydration. [employer] Other [id number] [facility] Encounter Date Diagnosis Assessment Notes Treatment Notes Treatment Clinical Notes Jun, Acute diffuse otitis externa of left ear (ICD-10 - H60.312) Keep ear clean and dry. Avoid wearing hearing aids Avoid use of Qtips Jun, Type 2 diabetes mellitus with hyperglycemia, without long-term current use of insulin (ICD-10 - E11.65) This patient is following a comprehensive diabetic treatment plan. They are checking their feet daily for calluses and nonhealing ulcers. They are being seen for yearly dilated eye examinations. Goals: SBP less than 130, LDL less than 100, FBS less than 140, A1C less than 7%. They are checking their BS daily, will which are reviewed at the office visit. Continue regular routine monitoring of A1C,] Microalbumin, Dilated eye exam and Foot exam Increases risk of more serious infection Also increases risk for fungal infection [employer] Other 11-07-2023 Evaluation note* Encounter Date Diagnosis Assessment Notes Treatment Notes Treatment Clinical Notes Jun, Acute diffuse otitis externa of left ear (ICD-10 - H60.312) [employer] Other 10-16-2023 Evaluation note* Encounter Date Diagnosis Assessment Notes Treatment Notes Treatment Clinical Notes May, Type 2 diabetes mellitus with hyperglycemia, without long-term current use of insulin (ICD-10 - E11.65) [employer] Other 10-09-2023 Evaluation note* Encounter Date Diagnosis Assessment Notes Treatment Notes Treatment Clinical Notes May, Rectal cancer (ICD-10 - C20) Malignant rectal polyp, completely excised 02/2021 [employer] Other 09-26-2023 Evaluation note* Encounter Date Diagnosis Assessment Notes Treatment Notes Treatment Clinical Notes Apr, Type 2 diabetes mellitus with hyperglycemia, without long-term current use of insulin (ICD-10 - E11.65) [employer] Other 09-19-2023 Evaluation note* Encounter Date Diagnosis Assessment Notes Treatment Notes Treatment Clinical Notes Apr, Type 2 diabetes mellitus with hyperglycemia, without long-term current use of insulin (ICD-10 - E11.65) This patient is following a comprehensive diabetic treatment plan. They are checking their feet daily for calluses and nonhealing ulcers. They are being seen for yearly dilated eye examinations. Goals: SBP less than 130, LDL less than 100, FBS less than 140, AC and A1C less than 7%. They are checking their BS daily, will which are reviewed at the office visit. Continue regular routine monitoring of A1C,] Microalbumin, Dilated eye exam and Foot exam BS increasing. Off all medications, suggest initiating GLP-1 for added benefit of weight loss 19 Sep, 2023 Primary hypertension (ICD-10 - I10) This patient is instructed to consume a healthy, low-fat, low-salt diet. They are also encouraged to continue exercise to achieve/maintain a normal BMI. Apr, Mucopurulent chronic bronchitis (ICD-10 - J41.1) Extensive evalution for COPD/SOB. Pulmonary HTN: post capillary No new medications. Continue LABA/ICS/LAMA and f/u Pulmonary. Dyspnea due to COPD, lobectomy and increased abdominal girth Apr, THEODORE (obstructive sleep apnea) (ICD-10 - G47.33) This patient is aware of the benefits associated with THEODORE: With continued use, the patient reduces the risk for [place], CVA, HTN, cardiac dysrhythmias and sudden cardiac deaths.The patient is also aware of the association between THEODORE and morning headaches, daytime somnolence, fatigue and obesity, which also has been improved with continued use.The patient is compliant with treatment, wearing the equipment every night for greater than 4 hours.The patient is instructed to continue use of the CPAP for THEODORE treatment. Apr, Pulmonary hypertension (ICD-10 - I27.20) No treatment initiated. Continue w/ exercise and weight loss Apr, Mild episode of recurrent major depressive disorder (ICD-10 - F33.0) Stable w/ medication Encouraged to continue healthy diet and exercise. 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 f/u Pulmonary Cancer dx in 2020 It has been > [address] scan [employer] Other 09-14-2023 Evaluation note* Encounter Date Diagnosis Assessment Notes Treatment Notes Treatment Clinical Notes Apr, Pulmonary hypertension (ICD-10 - I27.20) RHC: post capillary PH [employer] Other 09-14-2023 NoteHNO ID: [id number] Author: Juan Jose Flores MD Service: ? Author Type: Physician Type: Progress Notes Filed: 04/27/2023 3:44 PM Note Text: Patient Name: Jacinta Robles Patient Date of Procedure: April 27, 2023 Time of Procedure: 13:00 UNIVERSAL PROTOCOL / SAFETY CHECKLIST Procedure to be performed: Right Heart Catheterization with CPET Sign in Communication: completed Time Out: Team Confirms the Correct Patient, Correct Procedure, Correct Site and Site Marking, Correct Position (if applicable). Time: 13:35 Affirmation of Time Out: YES Sign Out Discussion: Completed Procedure start time: 13:36 Procedure end time: 14:40 Staff involved: Juan Jose Flores MD Nurse(s): Gasper Mac RN and Thais Sanches RN Procedure(s): Right Heart Catheterization. Right Heart Catheterization Indications: Exercise intolerance Pre Procedure Diagnosis: Preload insufficiency. Post Procedure Diagnosis: Postcapillary PH. Respiratory limitation. Medications: No negative chronotropic agents. Access site: Right internal jugular vein [place] size: 7.5 F. Anesthesia: Lidocaine 1% Procedure Narrative: Consent was obtained. Time out taken. Performed at procedure room in 1. Under sterile condition, lidocaine 1 % (0.2 ml) was applied and under US guidance with Seldinger technique a left radial arterial line was placed without difficulties. Under sterile condition, lidocaine 1 % (4.8 mL) was applied and under US guidance a 8.5 F introducer was inserted without difficulty. Wire was noted to be located in the SVC under fluoroscopy. A [place] catheter was advanced to the right pulmonary artery without difficulties (RA, RV, PA pressures were measured). Wedge was obtained and confirmed to be appropriate by fluoroscopy (stable catheter) and blood gas analysis. Mixed venous blood was obtained for indirect Imer determination. CO was determined by thermodilution and indirect Imer methodology. Measured IMER CO was performed if results are provided immediately after the RHC determinations section. For this procedure, patients were connected to a metabolic cart for 15 minutes and arterial blood obtained for ABG. Disposition: Patient was discharged in stable condition. RHC determinations Determinations Result Units Rhythm NSR Inspired fraction of oxygen 21.00 % Oxygen flow 0.00 L/min SpO2 96.00 % Systolic BP 135.00 mmHg Diastolic BP 59.00 mmHg Mean BP 84.33 mmHg Heart Rate 66.00 bpm Height 171.00 cm Weight 95.90 Kg Body surface area 2.08 m2 Body mass index 32.80 kg/m2 Right atrial pressure (mean) 12.00 mmHg Right atrial pressure (mean) peak v wave (end-expiration) 20.00 mmHg Right ventricular systolic pressure 42.00 mmHg Right ventricular end-diastolic pressure 12.00 mmHg Systolic pulmonary artery pressure 42.00 mmHg Mean pulmonary artery pressure 33.00 mmHg Diastolic pulmonary artery pressure 29.00 mmHg Pumonary artery pulse pressure 13.00 mmHg Pulmonary artery occlusion pressure (mean) 16.00 mmHg Pulmonary artery occlusion pressure (end-expiration) 20.00 mmHg Pulmonary artery occlusion pressure (end-expiration) peak v wave 20.00 Diastolic pulmonary gradient 9.00 mmHg Transpulmonary gradient 13.00 mmHg Pulmonary artery capacitance 9.21 mL/mmHg Cardiac output (thermodilution) 7.90 L/min Cardiac index (thermodilution) 3.80 L/min/m2 Cardiac output (indirect IMER) 6.26 L/min Cardiac index (indirect IMER) 3.02 L/min/m2 Systemic vascular resistance 732.49 dynes/sec/cm5 Stroke volume 119.70 mL Stroke volume index 57.61 mL/m2 Right ventricular stroke work index 16.45 g*m/m2 Pulmonary vascular resistance 1.65 Wood Units Hemoglobin (mixed venous) 12.70 g/dL Arterial oxyhemoglobin 95.00 % Mixed venous oxyhemoglobin 71.00 % Lactic acid (arterial) 1.00 mmol/L Abbreviated version Right atrial pressure (mean) 12.00 mmHg Mean pulmonary artery pressure 33.00 mmHg Pulmonary artery occlusion pressure (end-expiration) 20.00 mmHg Cardiac index (thermodilution) 3.80 L/min/m2 Pulmonary vascular resistance 1.65 Wood Units Mixed venous oxyhemoglobin 71.00 % RA and PAP: RV pullback: ABG on RA supine position: Component Ref Range AND Units 1:52 PM pH, Arterial 7.35 - 7.45 7.40 pH, Temp Corrected, Arterial 7.35 - 7.45 7.40 pCO2, Arterial 36 - 46 mm Hg 34 Low pCO2, Temp Corrected, Arterial 36 - 46 mmHg 34 Low pO2, Arterial 85 - 95 mm Hg 82 Low pO2, Temp Corrected, Arterial 85 - 95 mmHg 82 Low Bicarbonate, Arterial 22 - 26 mmol/L 21 Low O2 Saturation, Arterial 95 - 98 % 97 Base Deficit, Arterial -2 - 0 mmol/L -3 Low Oxyhemoglobin, Arterial 95 - 98 % 95 Carboxyhemoglobin, Arterial 0.0 - 2.0 % 1.1 Comment: Carboxyhemoglobin Reference Range for Smokers: 2.0-8.0% Methemoglobin, Arterial 0.0 - 1.5 % 0.7 Sodium, Whole Blood 136 - 144 mmol/L 139 Potassium, Whole Blood 3.5 - 5.0 mmol/L 3.7 (more content not included)...[facility] 04-27-2023 History of Present illness Narrative* Juan Jose Flores MD - 04/27/2023 1:32 PM EDT Images from the original note were not included. Patient Name: Jacinta Robles Patient Date of Procedure: April 27, 2023 Time of Procedure: 13:00 UNIVERSAL PROTOCOL / SAFETY CHECKLIST Procedure to be performed: Right Heart Catheterization with CPET Sign in Communication: completed Time Out: Team Confirms the Correct Patient, Correct Procedure, Correct Site and Site Marking, Correct Position (if applicable). Time: 13:35 Affirmation of Time Out: YES Sign Out Discussion: Completed Procedure start time: 13:36 Procedure end time: 14:40 Staff involved: Juan Jose Flores MD Nurse(s): Gasper Mac RN and Thais Sanches RN Procedure(s): Right Heart Catheterization. Right Heart Catheterization Indications: Exercise intolerance Pre Procedure Diagnosis: Preload insufficiency. Post Procedure Diagnosis: Postcapillary PH. Respiratory limitation. Medications: No negative chronotropic agents. Access site: Right internal jugular vein [place] size: 7.5 F. Anesthesia: Lidocaine 1% Procedure Narrative: Consent was obtained. Time out taken. Performed at procedure room in 1. Under sterile condition, lidocaine 1 % (0.2 ml) was applied and under US guidance with Seldinger technique a left radial arterial line was placed without difficulties. Under sterile condition, lidocaine 1 % (4.8 mL) was applied and under US guidance a 8.5 F introducer was inserted without difficulty. Wire was noted to be located in the SVC under fluoroscopy. A [place] catheter was advanced to the right pulmonary artery without difficulties (RA, RV, PA pressureswere measured). Wedge was obtained and confirmed to be appropriate by fluoroscopy (stable catheter)and blood gas analysis. Mixed venous blood was obtained for indirect Imer determination. CO was determined by thermodilution and indirect Imer methodology. Measured IMER CO was performed if results are provided immediately after the RHC determinations section. For this procedure, patients were connected to a metabolic cart for 15 minutes and arterial blood obtained for ABG. Disposition: Patient was discharged in stable condition. RHC determinations Determinations Result Units Rhythm NSR Inspired fraction of oxygen 21.00 % Oxygen flow 0.00 L/min SpO2 96.00 % Systolic BP 135.00 mmHg Diastolic BP 59.00 mmHg Mean BP 84.33 mmHg Heart Rate 66.00 bpm Height 171.00 cm Weight 95.90 Kg Body surface area 2.08 m2 Body mass index 32.80 kg/m2 Right atrial pressure (mean) 12.00 mmHg Right atrial pressure (mean) peak v wave (end-expiration) 20.00 mmHg Right ventricular systolic pressure 42.00 mmHg Right ventricular end-diastolic pressure 12.00 mmHg Systolic pulmonary artery pressure 42.00 mmHg Mean pulmonary artery pressure 33.00 mmHg Diastolic pulmonary artery pressure 29.00 mmHg Pumonary artery pulse pressure 13.00 mmHg Pulmonary artery occlusion pressure (mean) 16.00 mmHg Pulmonary artery occlusion pressure (end-expiration) 20.00 mmHg Pulmonary artery occlusion pressure (end-expiration) peak v wave 20.00 Diastolic pulmonary gradient 9.00 mmHg Transpulmonary gradient 13.00 mmHg Pulmonary artery capacitance 9.21 mL/mmHg Cardiac output (thermodilution) 7.90 L/min Cardiac index (thermodilution) 3.80 L/min/m2 Cardiac output (indirect IMER) 6.26 L/min Cardiac index (indirect IMER) 3.02 L/min/m2 Systemic vascular resistance 732.49 dynes/sec/cm5 Stroke volume 119.70 mL Stroke volume index 57.61 mL/m2 Right ventricular stroke work index 16.45 g*m/m2 Pulmonary vascular resistance 1.65 Wood Units Hemoglobin (mixed venous) 12.70 g/dL Arterial oxyhemoglobin 95.00 % Mixed venous oxyhemoglobin 71.00 % Lactic acid (arterial) 1.00 mmol/L Abbreviated version Right atrial pressure (mean) 12.00 mmHg Mean pulmonary artery pressure 33.00 mmHg Pulmonary artery occlusion pressure (end-expiration) 20.00 mmHg Cardiac index (thermodilution) 3.80 L/min/m2 Pulmonary vascular resistance 1.65 Wood Units Mixed venous oxyhemoglobin 71.00 % RA and PAP: RV pullback: ABG on RA supine position: Component Ref Range & Units 1:52 PM pH, Arterial 7.35 - 7.45 7.40 pH, Temp Corrected, Arterial 7.35 - 7.45 7.40 pCO2, Arterial 36 - 46 mm Hg 34 Low pCO2, Temp Corrected, Arterial 36 - 46 mmHg 34 Low pO2, Arterial 85 - 95 mm Hg 82 Low pO2, Temp Corrected, Arterial 85 - 95 mmHg 82 Low Bicarbonate, Arterial 22 - 26 mmol/L 21 Low O2 Saturation, Arterial 95 - 98 % 97 Base Deficit, Arterial -2 - 0 mmol/L -3 Low Oxyhemoglobin, Arterial 95 - 98 % 95 Carboxyhemoglobin, Arterial 0.0 - 2.0 % 1.1 Comment: Carboxyhemoglobin Reference Range for Smokers: 2.0-8.0% Methemoglobin, Arterial 0.0 - 1.5 % 0.7 Sodium, Whole Blood 136 - 144 mmol/L 139 Potassium, Whole Blood 3.5 - 5.0 mmol/L 3.7 Calcium Ionized, Whole Blood 1.08 - 1.30 mmol/L 1.17 Calcium Ionized, pH corrected 1.08 - 1.30 mmol/L 1.17 Glucose, Whole Blood 60 - 105 mg/dL 134 High Lactate 0.5 - 2.2 mmol/L 1.0 Hemoglobin, Whole Blood 13.0 - 17.0 g/dL 12.3 Low Hematocrit, Whole Blood 39.0 - 51.0 % 37.9 Low Patient Position Baseline Supine A-a gradient on RA in supine position was 22.5 mmHg, for an expected value of 18.5 mmHg, which is mildly increased. ABG on RA sitting position: Component Ref Range & Units 2:10 PM (04/27/23) pH, Arterial 7.35 - 7.45 7.40 pH, Temp Corrected, Arterial 7.35 - 7.45 7.40 pCO2, Arterial 36 - 46 mm Hg 34 Low pCO2, Temp Corrected, Arterial 36 - 46 mmHg 34 Low pO2, Arterial 85 - 95 mm Hg 92 pO2, Temp Corrected, Arterial 85 - 95 mmHg 92 Bicarbonate, Arterial 22 - 26 mmol/L 21 Low O2 Saturation, Arterial 95 - 98 % 98 Base Deficit, Arterial -2 - 0 mmol/L -3 Low Oxyhemoglobin, Arterial 95 - 98 % 96 Carboxyhemoglobin, Arterial 0.0 - 2.0 % 1.0 Comment: Carboxyhemoglobin Reference Range for Smokers: 2.0-8.0% Methemoglobin, Arterial 0.0 - 1.5 % 0.6 Sodium, Whole Blood 136 - 144 mmol/L 140 Potassium, Whole Blood 3.5 - 5.0 mmol/L 4.1 Calcium Ionized, Whole Blood 1.08 - 1.30 mmol/L 1.22 Calcium Ionized, pH corrected 1.08 - 1.30 mmol/L 1.22 Glucose, Whole Blood 60 - 105 mg/dL 148 High Lactate 0.5 - 2.2 mmol/L 0.9 Hemoglobin, Whole Blood 13.0 - 17.0 g/dL 13.5 Hematocrit, Whole Blood 39.0 - 51.0 % 41.3 Patient Position Sitting Baseline A-a gradient on RA in sitting position was 12.5 mmHg, for an expected value of 18.5 mmHg, which is normal. Arterial O2 content 16.41 Venous O2 content 12.26 Diff 4.15 VO2 (mL/min) 314 CO IMER (L/min) 7.57 CI IMER (L/min/m2) 3.65 O2 consumption measured with metabolic cart: 314 mL/mn Direct Imer CO: 7.57 L/min Direct Imer CI: 3.65 L/min/m 2 Exercise Challenge: Exercise challenge (sitting bike) RA PAP mPAP PAWP (mean) CO (thermo) CI (thermo) BP HR SPO2 Darshana Dyspnea Darshana legs SV Temp TPG PVR Chest pain Baseline 2 27/10 15 3 5.7 2.74 153/61 67 98 0 0 85 12 2.11 0 1 stage (20W) 2 min 4 36/17 23 8 7.8 3.75 162/60 74 97 1 1 105 15 1.92 0 2 stage (40W) 2 min 4 44/16 27 10 10.2 4.90 181/61 82 95 3 3 124 17 1.67 0 60 W 2 min 5 53/18 31 10 11.4 5.48 198/65 93 95 5 5 123 21 1.84 0 80 W 2 min 5 59/22 35 11 13.4 6.4 233/75 110 95 8 8 122 24 1.79 4 100 W 2 min 9 64/24 41 24 13.3 6.4 240/75 124 95 10 10 107 17 1.28 5 1 min recovery 1 min 5 59/22 34 20 15.8 7.6 219/68 103 98 5 5 153 14 0.89 0 3 min recovery 0 42/12 22 4 8.8 4.23 168/55 87 99 4 3 101 18 2.05 0 PVR at max exercise 1.28 mPAP/CO 3.08 PAWP/CO 1.80 (mPAP peak- mPAP baseline)/(CO peak-CO baseline) 3.42 (PAWP peak- PAWP baseline)/(CO peak - CO baseline) 2.76 mPAP/CO slope 2.89 PAWP/CO slope 1.74 Maximum exercise, predominantly stopped due to dyspnea. Adequate increase in RA pressure. No evidence of PH with exercise by mPAP/CO slope. Adequate increase in HR during the exercise. Adequate increase in systolic arterial pressure. PVR remained < 2 Wood units during the exercise. The PAWP and PAP are averaged values across the respiratory cycle. The PAWP end-expiration at peak exercise was 30 mmHg. Adequate SpO2 at rest and during the exercise. PAP sitting at rest PAWP sitting at rest PAP sitting peak exercise: PAWP sitting peak exercise: Oximetry: pH SaO2 PaO2 Lactate PaCO2 SvO2 PvO2 PvCO2 P(A-a)O2 hgb d/dl a hgb g/dL v a-v O2 absolute absolute absolute absolute absolute absolute absolute absolute absolute Pre/Baseline 7.4 96 92 0.9 34 69 39 36 13 13.5 12.6 6.06318 20 7.39 94 75 1 35 48 29 41 25 13.8 13.3 [id number] 40 7.38 93 75 1.2 33 45 28 45 28 13.3 13.7 8.53612 60 7.38 93 71 1.8 35 40 27 47 35 13.7 13.9 9.80824 80 7.37 93 74 2.9 36 40 28 50 33 14.1 13.8 10.75546 100 7.35 91 69 3.6 36 33 26 54 39 14.5 14.4 11.61148 1 min recovery 7.34 95 96 4.6 33 60 38 48 20 14.4 13.9 7.541 3 min recoery 7.36 96 109 4.9 30 68 43 40 14 14 13.5 6.1304 10 min recovery 7.34 96 107 4.4 33 14 The PaO2 inadequately decreased with exercise with increased A-a gradient. The PaCO2 inadequately increase during exercise. The PH adequately decreased with exercise. The lactic acid at peak exercisewas 3.6 mmol/L. CPET: The patient was able to achieve 100 [place] on a sitting bicycle (93% predicted). The VO2 peak was 1,533 mL/min that corresponds to 85% of predicted by Alan. When adjusted by weight the VO2/kg at peak was 16.0 ml/min/kg that corresponds to 85% of predicted by Alan. Predicted VO2 mL/kgIBW/min 43.1 mL/kgIBW/min thereby patient achieved 59.2% when adjusted for ideal body weight. The anaerobic threshold was achieved at 60 ovalles with a VO2 of 1,128 mL/min which is 63% of VO2 predicted and normal. Peak circulatory power was normal at 4,225 ml/kg/min x mmHg (normal 5,630-4,200). VO2/work slope 13.1 mL/min/[place] which is increased. Breathing: The respiratory rate increased from 17 to 38 respirations per minute. The breathing reserve was 7.7% at the end of exercise. The minute ventilation at maximum exercise was 59.6 L/min which corresponds to 92% of predicted. The expiratory tidal volume increased from 0.66 L to 1.59 L at peak. The pulse oxygenation at rest was 98% and 89% at peak (PaO2 was 92 mmHg at rest and decreased to 69 mmHg at peak exercise. The PETCO2 was 27 at rest and increased to 30 at the end of the exercise. The PETO2 at rest was 111 and increased to 113 mmHg at max. The space decreased from 0.50 at rest to 0.44 at peak when calculated by ABGs. The PH was7.40 at rest and 7.35 at peak. The RER increased up to 0.88 at VO2 peak. The VE/VCO2 was 43 at AT, while the VE/VCO2 slope to AT was 42.4. The VE max/MVV 93%. Maximum Vt was 71% of FVC (which is normal from an expected value of 60-80%). The [place] Breathing questionnaire score 19 (positive hyperventilation score >23). Dysfunctional breathing was not observed. Filling of flow volume loops. Dysfunctional breathing was not observed. Baseline spirometry moderately restrictive. FEV1 1.62 L (58% of predicted) and FVC 2.24 L (61% of predicted). FEV1/FVC ratio was 0.72. Cardiovascular: Resting EKG showed no ischemia or ST depression and an IRBBB. Exercise EKG showed no significant STchanges, continued IRBBB, infrequent-monomorphic PVC's and one PAC. The heart rate increased up to 129 bpm at VO2 peak which is 89% predicted. Chronotropic index 0.95 (0.8-1.3). Adequate heart rate recovery 21 bpm (normal > 12). Adequate increase in BP during exercise (diastolic pressure increased <20 mmHg at peak) however resting was 161/59 mmHg thereby hypertensive. The O2 pulse increasedfrom 5 to 12 mL which is 99% of predicted. Maximum Cardiac output and Index by Imer equation are 13.3 and 6.4 L/min/2, respectively. Maximum predicted CO is 12.9 L/min, therefore he achieved 103% of predicted at peak exercise. CO reserved predicted increase was 7.7 L/min. Observed CO reserved 0.99 (7.6/7.7) (expected value .80). Baseline 20 40 60 80 100 1 min recovery 3 min recovery CO (IMER) 5.7 7.8 10.2 11.4 13.4 13.3 15.8 8.8 CI (IMER) 2.74 3.75 4.90 5.48 6.4 6.4 7.6 4.23 Vd/Vt 0.50 0.45 0.40 0.42 0.44 0.44 0.39 0.41 HR (bpm) 66 76 86 99 113 129 108 88 SV (mL) 86.4 102.6 118.6 115.2 118.6 103.1 146.3 100.0 Spirometry moderately restrictive. Near-Maximal exercise (Lactic acid increased to 3.6 mmol/L, RER at max was 0.88). Normal functional capacity at 85% of predicted by Alan and moderately decreased at 59.2% of predicted when adjusted by ideal bodyweight. Anaerobic threshold was achieved at 63% of VO2 predicted, which is normal. Peak Vt max doubled from baseline, while max Vt/FVC was normal at71%. Exhausted breathing reserve 7.7%. Decrease in space (0.50- 0.44 when calculated by ABG). Adequate HRR at 15 bpm. Peak O2 pulse was normal (99%) with increase and late-stage plateau. Ve/VCO2at AT was 43 which is increased. In summary, 1- Normal functional capacity and moderatley decreased when IBW adjusted; 2- VO2 workslope increased; 3- exhausted ventilation; 4- increased VE/VCO2; 5- SVdecreased last stage of exercise; 6- PaO2 and PaCO2 inappropriately responded to exercise; 7- systemic resting hypertension; 8- moderately restrictive spirometry Estimated Blood Loss: 10 ml( blood discarded when measuring oxygenation) + 30 mL research. Specimens: Mixed venous blood, PAW and left radial arterial gases. Complications: None. Introducer removed without complications. Pressure applied for 10 minutes. No Bleeding. Condition of Patient After Procedure: stable Radiation Exposure: Fluoro time 0.25 min:sec Cumulative area dose product 2064.80 cGy cm2 Cumulative air kerma 4.80 mGy Summary: Postcapillary pulmonary hypertension with cardiac index in the upper limit of normal at rest in supine position. When sitting the mPAP dropped from 33 to 20 mmHg, the PAWP from 20 to 6 mmHg. A-a gradient on RA in supine position was 22.5 mmHg, for an expected value of 18.5 mmHg, which is mildly increased. A-a gradient on RA in sitting position was 12.5 mmHg, for an expected value of 18.5 mmHg, which is normal, and reflective of better V/Q match when sitting than supine. Maximum exercise, predominantly stopped due to dyspnea. Adequate increase in RA pressure. No evidence of PH with exercise by mPAP/CO slope. Adequate increase in HR during the exercise. Adequate increase in systolic arterial pressure. PVR remained < 2 Wood units during the exercise. The PAWP and PAP are averaged values across the respiratory cycle. The PAWP end-expiration at peak exercise was 30 mmHg. Adequate SpO2 at rest and during the exercise. The PaO2 inadequately decreased with exercise with increased A-a gradient. The PaCO2 inadequately increase during exercise. The PH adequately decreased with exercise. The lactic acid at peak exercisewas 3.6 mmol/L. CPK increased from 65 to 78 unit(s)/L from baseline to peak exercise, which is normal. Ammonia increased from 11 to 39 micromol/L from baseline to peak exercise, which is normal. Handgrip strength in the right (dominant) hand was 80 pounds, for an expected value of 65.7 pounds. In conclusion, the patient has postcapillary pulmonary hypertension with cardiac index in the upperlimit of normal at rest in supine position. Normal functional capacity. Exhausted breathing reserve. Adequate heart rate reserve. Increase A-a gradient in supine position that normalized when sitting. No clear evidence of PH with exercise; however, the PAWP end-expiration was 30 mmHg. Deconditioning and overweight. Most likely reasons for dyspnea is his restrictive lung disease post RU lobectomy in addition to obesity that particularly restricts the diaphragmatic movement when bending over + a degree of postcapillary PH likely related to HFpEF. Plan: F/U in the OP clinic. Low salt in the diet. Weight loss. BP control. Exercise program. No need for oxygen supplementation at this point. May consider diuretics by primary care physician. Authenticated by Juan Jose Flores MD on April 27, 2023 at 1:32 PM. CC: documented [facility] [place] History of Present illness Narrative* Adela Hwang - 04/27/2023 1:29 PM EDTSummary: Research IRB#[id number] IRB #[id number] Study Title: Comparing hemodynamic response to fluid challenge and exercise in patients with pulmonary hypertension Minibus Driver: Dr. Juan Jose Flores M.D. Pot Filler: Adela Hwang Research Consent Patient scheduled for RHC with iCPET today, 04/27/2023. Approached about possible participation in IRB# [id number], Comparing hemodynamic response to fluid challenge and exercise in patients with pulmonary hypertension. All questions were answered and the patient was allowed to review the consent. All risks and benefits of participating in the study were carefully discussed with the patient. Patient agreed to participate in this study and the informed consent was signed and a copy given to the patient. After said visit patient was discharged from study. Adela Hwang, Clinical Operating Room Tech April 27, 2023 documented in this encounterSelect [facility] [place]-14-2023 NoteHNO ID: [id number] Author: Adela Hwang Service: ? Author Type: ? Type: Progress Notes Filed: 05/01/2023 10:20 AM Note Text: Summary: Research IRB#[id number] IRB #[id number] Study Title: Comparing hemodynamic response to fluid challenge and exercise in patients with pulmonary hypertension Minibus Driver: Dr. Juan Jose Flores M.D. Pot Filler: Adela Hwang Research Consent Patient scheduled for RHC with iCPET today, 04/27/2023. Approached about possible participation in IRB# [id number], Comparing hemodynamic response to fluid challenge and exercise in patients with pulmonary hypertension. All questions were answered and the patient was allowed to review the consent. All risks and benefits of participating in the study were carefully discussed with the patient. Patient agreed to participate in this study and the informed consent was signed and a copy given to the patient. After said visit patient was discharged from study. Adela Hwang, Clinical Operating Room Tech [facility] 27[facility] Miscellaneous Notes* Telephone Encounter - Deepti Cervantes MA - 04/18/2023 10:53 AM EDTSummary: Appointment Confirmation Called patient to confirm his iCPET with Dr. Flores on 04/27 at 1pm. NPO 4 hours pre-procedure. Anticoagulation:None at this time Must have a limb driver for transportation post procedure. May take other medications as prescribed prior to procedure. Check in at desk G-11 at 12:30pm Deepti Cervantes Clinical Heel Cover Softener [facility] [place] Respiratory Mitchell documented in this encounterSelect [facility] [place] Evaluation note* Encounter Date Diagnosis Assessment Notes Treatment Notes Treatment Clinical Notes Mar, Restless leg syndrome (ICD-10 - G25.81) [facility] [employer] Other 06-08-2023 History of Present illness Narrative* Kaitlin Murcia APRN.CNP - 01/19/2023 4:07 PM EDT Open in error documented in this encounterSelect [facility] [place]-30-2023 Evaluation note* Encounter Date Diagnosis Assessment Notes Treatment Notes Treatment Clinical Notes December, Primary hypertension (ICD-10 - I10) [facility] [employer] Other 05-12-2023 Miscellaneous Notes* Telephone Encounter - Huey Wisdom - 12/23/2022 9:17 AM EDT Placed call to pt to sched new appt w/ CHF, no answer left VM with call back # to [facility] scheduling line * Telephone Encounter - Thu Valladares Pss - 12/23/2022 6:31 AM EDT Patient: Jacinta Robles Date of : 1945 Patient phone number: [phone] Referring Provider for the encounter: Dr Tab Barfield Requesting Provider: Cardiology Reason for requesting visit (RFV/signs and symptoms/diagnosis): Pulmonary Hypertension Person calling: caregiver: PHUONG Return call to: self Medical Records/Insurance Card scanned into Shoulder Options: Yes Comments: Additional documents available through OnBase. documented in this encounterSelect [facility] [place] Evaluation note* Encounter Date Diagnosis Assessment Notes Treatment Notes Treatment Clinical Notes December, Mucopurulent chronic bronchitis (ICD-10 - J41.1) Mucinex as needed, hydrate. Continue ADvair q 12 hours. Continue THIEN as needed for cough and SOB. December, Pulmonary hypertension (ICD-10 - I27.20) Monitor for now. Refer to Cardiology for opinion on further evaluation and treatment. 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 CT chest yearly recommended x 5 years December, THEODORE (obstructive sleep apnea) (ICD-10 - G47.33) This patient is aware of the benefits associated with THEODORE: With continued use, the patient reduces the risk for [place], CVA, HTN, cardiac dysrhythmias and sudden cardiac deaths.The patient is also aware of the association between THEODORE and morning headaches, daytime somnolence, fatigue and obesity, which also has been improved with continued use.The patient is compliant with treatment, wearing the equipment every night for greater than 4 hours.The patient is instructed to continue use of the CPAP for THEODORE treatment. Titration study scheduled December, Type 2 diabetes mellitus with hyperglycemia, without long-term current use of insulin (ICD-10 - E11.65) This patient is following a comprehensive diabetic treatment plan. They are checking their feet daily for calluses and nonhealing ulcers. They are being seen for yearly dilated eye examinations. Goals: SBP less than 130, LDL less than 100, FBS less than 140, AC and A1C less than 7%. They are checking their BS daily, will which are reviewed at the office visit. A1C: [ ] Microalbumin: [ ] Eye exam: [ ] Foot exam: [ ] December, Primary hypertension (ICD-10 - I10) This patient is instructed to consume a healthy, low-fat, low-salt diet. They are also encouraged to continue exercise to achieve/maintain a normal BMI. December, Mild episode of recurrent major depressive disorder (ICD-10 - F33.0) Healthy diet, exercise and keep active. No change in treatment December, Rectal cancer (ICD-10 - C20) Malignant rectal polyp, completely excised 02/2021 No s/s recurrence. Surveillance scopes planned December, Prostate cancer (ICD-10 - C61) EBRT + ADT No s/s recurrence December, Medicare annual wellness visit, subsequent (ICD-10 - Z00.00) Personalized health advice was given to the beneficiary including a written plan for screenings discussed and provided. Advanced care planning reviewed and/or information given as requested. Additional counseling was provided here today in regards to, [ ]. The above visit was performed by [ ], under direct supervision of [ ]. Document reviewed and amended by provider signed below. Healthy diet and exercise. Reviewed age-appropriate preventive testing recommended. [employer] Other 08-11-2022 History of Present illness Narrative* Gabe Banerjee MD - 03/24/2022 11:51 PM EDT Radiation Oncology - Follow Up Note PATIENT NAME: Jacinta Robles PATIENT Signed by: Gabe Banerjee MD I spent a total of 20 minutes on the date of the service which included preparing to see the patient, [id number] patient care, and counseling and educating the patient/family/caregiver. This document has been created with the use of voice recognition technology. It may contain inaccuracies, misspellings, inaccurate syntax or inappropriate word context that are a result of the inadequacies/shortcomings of said technology/software. [facility]* Diagnosis Prostate cancer (HCC)- Primary Malignant neoplasm of prostate documented in this encounter [facility] noteNo InformationNort [employer] Other Evaluation note* Diagnosis Exercise intolerance- Primary Other general symptoms documented in this encounter [facility] note* Diagnosis PAH (pulmonary artery hypertension) (HCC)- Primary Other chronic pulmonary heart diseases Exercise intolerance Other general symptoms documented in this encounter [facility] noteNo assessment information availableBarney [facility] Work Phone: Evaluation note* Diagnosis Onset Date Resolution Status Hypercholesterolemia acute Hypertension acute Major depression acute THEODORE (obstructive sleep apnea) acute Type 2 diabetes mellitus with hyperglycemia acute Medicare annual wellness visit, subsequent noneactive [facility] Work Phone: Evaluation note* Diagnosis Malignant neoplasm of prostate (HCC)- Primary Malignant neoplasm of prostate documented in this encounter [facility] [place] note Author Jamar Wray [facility] June 22, 2023 11:35am Note Date/Time June 22, 2023 1 1:35am [facility] [address] [place] [address] Gastroenterology H&P Signed Patient: Jacinta Robles MR#: [id number] : 1945 Acct:[id number] Age/Sex: 77 / M Adm Date: 3 Loc: Room: Type: [facility] Attending Dr: Jamar Wray MD Copies to: DO Jamar Hewitt MD~ Date of Service: 06/22/2023 HISTORY & PHYSICAL: Patient's history with special attention to the cardiovascular, pulmonary systems and the current problem was reviewed with the patient immediately prior to the procedure. Present medications and doses reviewed in the EMR. Allergies and pertinent laboratory tests were also reviewedat this time in the EMR. The physical examination, as below, was then performed. Indication, assessment and HPI: 77-year-old male presents for surveillance colonoscopy Family history of GI malignancy? No PHYSICAL EXAMINATION Mouth and Pharynx : Moist mucus membranes, normal dentition Cardiac: Regular rate, regular rhythm Pulmonary: Clear to auscultation bilaterally, no wheezing Neurological: Alert and oriented x3, no focal deficits noted Abdomen: Abdomen soft, non-tender REVIEW OF SYSTEMS Constitutional: Denies malaise, fevers Cardiovascular: Denies chest pain, palpitations Respiratory: Denies shortness of breath, wheezing Gastrointestinal: Per HPI Genitourinary: Denies dysuria, polyuria Musculoskeletal: Denies joint swelling, joint stiffness Neurological: Denies numbness, tingling Integumentary: Denies rashes, skin lesions Endocrine: Denies fatigue, weight loss Written informed consent obtained from the patient. Risks (including but not limited to perforation, infection, bloating, bleeding, need for emergent surgeryand loss of life), benefits and alternatives explained and questions answered. The patient verbalized understanding. Based on history patient is an appropriate candidate for the procedure. Jamar Wray MD Documented By: Jamar Wray MD 06/22/23 1134 Signed By: <Electronically signed by Jamar Wray MD> 06/22/23 1135 [facility] Work Phone: [employer] general Narrative - Reported* Type Description Date Medical History Esophageal stricture Medical History Rectal polyp Medical History Tubulovillous adenoma of rectum Medical History Controlled type 2 di abetes mellitus with hyperglycemia, without long-term current use of insulin Medical History Mucopurulent chronic bronchitis Medical History Primary hypertension Medical History Mild episode of recurrent major depressive disorder Medical History Benign prostatic hyp erplasia with lower urinary tract symptoms Medical History Malignant neoplasm of upper lobe , right bronchus or lung Medical History Rectal cancer Medical History Stage 3a chronic kidney disease Medical History Obstructive sleep apnea Medical History Prostate cancer Medical History Iron deficiency anemia due to ch ronic blood loss Medical History Restless leg syndrome Surgical History RIGHT FOOT Surgical History cholecystectomy Surgical History SIGMOIDOSCOPY Surgical History LOBECTOMY, LUNG, UPPER LOBE, RI GHT 2020 Hospitalization History SEE SURGICAL HX [employer] Other [employer] general Narrative - Reported* Type Description Date Medical History Esophageal stricture Medical History Rectal polyp Medical History Tubulovillous adenoma of rectum Medical History Controlled type 2 di abetes mellitus with hyperglycemia, without long-term current use of insulin Medical History Mucopurulent chronic bronchitis Medical History Primary hypertension Medical History Mild episode of recurrent major depressive disorder Medical History Benign prostatic hyp erplasia with lower urinary tract symptoms Medical History Malignant neoplasm of upper lobe , right bronchus or lung Medical History Rectal cancer Medical History Stage 3a chronic kidney disease Medical History Obstructive sleep apnea Medical History Prostate cancer Medical History Iron deficiency anemia due to ch ronic blood loss Medical History Restless leg syndrome Surgical History RIGHT FOOT Surgical History cholecystectomy Surgical History SIGMOIDOSCOPY 2020 Surgical History LOBECTOMY, LUNG, UPPER LOBE, RI GHT 2020 Hospitalization History SEE SURGICAL HX [employer] Other history general Narrative - Reported* Type Description Date Medical History Esophageal stricture Medical History Rectal polyp Medical History Tubulovillous adenoma of rectum Medical History Controlled type 2 di abetes mellitus with hyperglycemia, without long-term current use of insulin Medical History Mucopurulent chronic bronchitis Medical History Primary hypertension Medical History Mild episode of recurrent major depressive disorder Medical History Benign prostatic hyp erplasia with lower urinary tract symptoms Medical History Malignant neoplasm o f upper lobe, right bronchus or lung Medical History Rectal cancer Medical History Stage 3a chronic kidney disease Medical History Obstructive sleep apnea Medical History Prostate cancer Medical History Iron deficiency anemia due to ch ronic blood loss Medical History Restless leg syndrome Surgical History RIGHT FOOT Surgical History cholecystectomy Surgical History SIGMOIDOSCOPY 2020 Surgical History LOBECTOMY, LUNG, UPPER LOBE, RI GHT 2020 Surgical History [facility] 04/2023 Hospitalization History SEE SURGICAL [employer] Other [employer] general Narrative - Reported* Type Description Date Medical History Esophageal stricture Medical History Rectal polyp Medical History Tubulovillous adenoma of rectum Medical History Controlled type 2 di abetes mellitus with hyperglycemia, without long-term current use of insulin Medical History Mucopurulent chronic bronchitis Medical History Primary hypertension Medical History Mild episode of recurrent major depressive disorder Medical History Benign prostatic hyp erplasia with lower urinary tract symptoms Medical History Malignant neoplasm o f upper lobe, right bronchus or lung Medical History Rectal cancer Medical History Stage 3a chronic kidney disease Medical History Obstructive sleep apnea Medical History Prostate cancer Medical History Iron deficiency anemia due to ch ronic blood loss Medical History Restless leg syndrome Surgical History RIGHT FOOT Surgical History cholecystectomy Surgical History SIGMOIDOSCOPY 2020 Surgical History LOBECTOMY, LUNG, UPPER LOBE, RI GHT [address] [facility] 04/2023 Surgical History Colonoscopy w/ polyp ectomy, rectal AVM, repeat 3 years 06/2023 Hospitalization History SEE SURGICAL [employer] Other [employer] general Narrative - Reported* Type Description Date Medical History Esophageal stricture Medical History Rectal polyp Medical History Tubulovillous adenoma of rectum Medical History Controlled type 2 di abetes mellitus with hyperglycemia, without long-term current use of insulin Medical History Mucopurulent chronic bronchitis Medical History Primary hypertension Medical History Mild episode of recurrent major depressive disorder Medical History Benign prostatic hyp erplasia with lower urinary tract symptoms Medical History Malignant neoplasm o f upper lobe, right bronchus or lung Medical History Rectal cancer Medical History Stage 3a chronic kidney disease Medical History Obstructive sleep apnea Medical History Prostate cancer Medical History Iron deficiency anemia due to ch ronic blood loss Medical History Restless leg syndrome Surgical History RIGHT FOOT Surgical History cholecystectomy Surgical History SIGMOIDOSCOPY 2020 Surgical History LOBECTOMY, LUNG, UPPER LOBE, RI GHT [address] [facility] 04/2023 Surgical History Colonoscopy w/ polyp ectomy, rectal AVM, sessile serrated polyp (repeat 3 years) 06/2023 Hospitalization History SEE SURGICAL [employer] Other Hospital Discharge instructions Additional Instructions DISCHARGE INSTRUCTIONS FOR COLONOSCOPY WHAT TO EXPECT: - You may feel full, gassy or cramping after your procedure. In some cases, this may be from a few hours to a day. Walking may help relieve the discomfort. - If you have polyp(s) removed you may note some minor bloody discharge after your first bowel movements. - You should begin to recover from anesthesia within 1 hour of the procedure, however may feel groggy for the next 24 hours. DO's AND DON'Ts: - Call your doctor right away if you have a hard abdomen, severe pain, are passing lots of bright red blood or clots. - Call your doctor if you develop any rashes, hives or difficulty breathing. - Let your doctor know if you have not had a bowel movement by 3 days after your procedure. - If you take 81 mg aspirin for your heart it is safe to resume this medication. - If you take other blood thinner medications your doctor will instruct you when these can safely be resumed. - Do NOT drive for 24 hours. - Do NOT operate machinery such as power tools, Chronicityn mowers, snow blowers, sewing machines, etc. for 24 hours. - Avoid alcoholic beverages and drugs for allergies, nerves, or sleep. - Do NOT stay alone. Do NOT leave your child unattended. - Do NOT make important personal or business decisions or sign any legal documents. - Eat solid foods and drink liquids in smaller amounts than usual until normal appetite returns. If you should experience an upset stomach, liquids high in sugar content (soda, Gregorio-Aid, non-acid juices) are recommended. - You can resume normal activities tomorrow. FOLLOW UP & RECOMMENDATIONS: -Follow-up with the GI office as needed. -Notify the doctor if you have any problems. -Repeat colonoscopy in 3 years. -Follow up with PCP. -Office number [phone].[facility] Work Phone: Reason for referral (narrative)* Reason Referral to [facility] Diagnosis 1 Pulmonary hypertensi on (I27.20) Referral Organization [facility] Kinsey altman Referring Provider First Name Tab Referring Provider Last Name Tyrese Referring Provider Specialty Internal Me bisi Referred Provider Specialty Cardiology Referral Priority Routine [employer] Other Reason for referral (narrative)* Reason 03/02/23 Referral to [facility] Diagnosis 1 Pulmonary hypertensi on (I27.20) Referral Organization [facility]upama Referring Provider First Name Tab Referring Provider Last Name Tyrese Referring Provider Specialty Internal Me dicine Referred Organization [facility] Referred Address [address] [place], [place],[address] Referred Provider Specialty Cardiology Referral Priority Routine Referral Appointment Date 2023-03-02 General Notes Marina Patel 01:15:19 PM >received today, attachments made, notes locked, referral faxed Marina Patel 12/28/2022 11:29:31 AM >fax first attempt letter Marina Patel 01/03/2023 07:57:58 AM >pt scheduled with Dr Shannon Gonzalez Clinical Notes F: [phone] / [phone] [employer] Other Reason for referral (narrative)* Reason Referral for surveil maryjo colonoscopy Diagnosis 1 Rectal cancer (C20) Referral Organization [facility]ama Referring Provider First Name Tab Referring Provider Last Name Tyrese Referring Provider Specialty Internal Me dicine Referred Organization [facility] Referred Provider Jamar Wray Referred Address [address] [place], [place],[address] Referred Provider Specialty Gastroentero logy Referral Priority Routine General Notes Mr. Robles is be ing referred for a surveillance colonoscopy. 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 He has completed surveillance procedures in December 2017, December 2018 and a sigmoidoscopy for rectal bleeding in July 2021. He denies change in appetite, weight loss or bowel habits. He denies heartburn or dysphagia. He denies abdominal pain, melena or hematochezia. [employer] Other Summary Purpose Family History No Family History Records Found Relationship Condition Age at Onset Recorded Date/T willy Not Specified No pertinent family history Unknown Advance Directives No Advanced Directives Records Found Advance Directive Response Recorded Date/ Time Advance Directives No April 9:27am Advance Directive Response Recorded Date/ Time Advance Directives No April 10:27am Chief Complaint and Reason for Visit Chief Complaint Hx of Colon Polyps Chief Complaint wellness Reason for Visit Hypercholesterolemia Hypertension Major depression THEODORE (obstructive sleep apnea) Type 2 diabetes mellitus with hyperglycemia Medicare annual wellness visit, subsequent Additional Source Comments Source Comments (unrecognize d section and content) In the event this informatio n is protected by the Federal Confidentiality of Alcohol and Drug Abuse Patient Records regulations: The Federal rules restrict any use of the information to criminally investigate or prosecute any alcohol or drug abuse patient.[facility] the event this information is protected by the Federal Confidentiality of Alcohol and Drug Abuse Patient Records regulations: The Federal rules restrict any use of the information to criminally investigate or prosecute any alcohol or drug abuse patient.[facility] the event this information is protected by the Federal Confidentiality of Alcohol and Drug Abuse Patient Records regulations: The Federal rules restrict any use of the information to criminally investigate or prosecute any alcohol or drug abuse patient.[facility] the event this information is protected by the Federal Confidentiality of Alcohol and Drug Abuse Patient Records regulations: The Federal rules restrict any use of the information to criminally investigate or prosecute any alcohol or drug abuse patient.[facility] the event this information is protected by the Federal Confidentiality of Alcohol and Drug Abuse Patient Records regulations: The Federal rules restrict any use of the information to criminally investigate or prosecute any alcohol or drug abuse patient.[facility] the event this information is protected by the Federal Confidentiality of Alcohol and Drug Abuse Patient Records regulations: The Federal rules restrict any use of the information to criminally investigate or prosecute any alcohol or drug abuse patient.[facility] the event this information is protected by the Federal Confidentiality of Alcohol and Drug Abuse Patient Records regulations: The Federal rules restrict any use of the information to criminally investigate or prosecute any alcohol or drug abuse patient.[facility] the event this information is protected by the Federal Confidentiality of Alcohol and Drug Abuse Patient Records regulations: The Federal rules restrict any use of the information to criminally investigate or prosecute any alcohol or drug abuse patient.[facility] Reason for Visit (unrecogniz ed section and content) Reason Comments Prostate Cancer 1 year follow up Reason Comments External Referrals/resources Reason Comments Opened In Error Reason Comments Appointment Confirmation Reason Comments Lab Orders Reason Comments Prostate Cancer Care Teams (unrecognized sec tion and content) Ophthalmic Dispenser Relationship Specialty Start Date End Date Tab Barfield, DO [address] [place] [address] PCP - General Internal Medicine 11/23/17 Ophthalmic Dispenser Relationship Specialty Start Date End Date Tab Barfield, DO [address] [place] [address] PCP - General Internal Medicine 11/23/17 Ophthalmic Dispenser Relationship Specialty Start Date End Date aTb Barfield, DO [address] [place] [address] PCP - General Internal Medicine 11/23/17 Ophthalmic Dispenser Relationship Specialty Start Date End Date Tab Barfield DO [address] [place] [address] PCP - General Internal Medicine 11/23/17 Melanie Gayle DO [address] [place] [address] Pulmonary Disease 03/15/23 Ophthalmic Dispenser Relationship Specialty Start Date End Date Tab Barfield DO [address] [place] [address] PCP - General Internal Medicine 11/23/17 Melanie Gayle DO [address] [place] [address] Pulmonary Disease 03/15/23 Ophthalmic Dispenser Relationship Specialty Start Date End Date Tab Barfield DO [address] [place] [id number] PCP - General Internal Medicine 11/23/17 Melanie Gayle DO [address] [place] [address] Pulmonary Disease 03/15/23 Ophthalmic Dispenser Relationship Specialty Start Date End Date Tab Barfield DO [address] [place] [id number] PCP - General Internal Medicine 11/23/17 Melanie Gayle DO [address] [place] [id number] Pulmonary Disease 03/15/23 Team Status: Active Member Role Status Dates Tab Barfield DO Primary Care Provider Active Team Status: Inactive Member Role Status Dates Tab Barfield DO Primary Care Provider Active Jamar Wray MD Attending Provider Active Team Status: Inactive Member Role Status Dates Tab Barfield DO Primary Care Provide r, Attending Provider Active Start: December 22, 2023 End: December 22, 2023 Ophthalmic Dispenser Relationship Specialty Start Date End Date Tab Barfield DO [address] [place] [address] PCP - General Internal Medicine 11/23/17 Melanie Gayle DO [address] [place] [address] Pulmonary Disease 03/15/23 (unrecognized sect ion and content) No Status Records FoundNo Status Records FoundNo Status Records Found INFORMATION SOURCE (unrecogn ized section and content) DATE CREATED AUTHOR 12/27/2022 [facility] DATE CREATED AUTHOR AUTHOR'S ORGANIZ ATION 07/03/2023 [facility] DATE CREATED AUTHOR AUTHOR'S ORGANIZ ATION 04/10/2024 [facility] Goals (unrecognized section and content) Goals may be documented in a n alternate section FOR RECORDS PERTAINING TO PATIENTS WHO ARE OR HAVE BEEN ENROLLED IN A CHEMICAL DEPENDENCY/SUBSTANCEABUSE PROGRAM, SOME INFORMATION MAY BE OMITTED. This clinical summary was aggregated from multiple sources. Caution should be exercised in using it in the provision of clinical care. This summary normalizes information from multiple sources, and as a consequence, information in this document may materially change the coding, format and clinical context of patient data. In addition, data may be omitted in some cases. CLINICAL DECISIONS SHOULD BE BASED ON THE PRIMARY CLINICAL RECORDS. [employer] provides no warranty or guarantee of the accuracy or completeness of information in this document.
[2024-04-23 16:35] LABS: Basophils Absolute Auto 0.1 10^3/uL (0.0-0.1); Basophils Percent Auto 0.8 % (0.2-2.0); Eosinophils Absolute Auto 0.3 10^3/uL (0.0-0.7); Eosinophils Percent Auto 3.2 % (0.9-7.0); Hemoglobin 13.1 g/dL (14.0-18.0); Immature Granulocytes Abs Auto 0.02 10^3/uL (0.00-0.03); Immature Granulocytes Pct Auto 0.2 % (0.0-0.5); Lymphocytes Absolute Auto 1.2 10^3/uL (1.2-3.8); Lymphocytes Percent Auto 14.2 % (20.5-60.0); Mean Corpuscular HGB Conc 32.8 g/dL (29.9-35.2); Mean Corpuscular Hemoglobin 31.3 pg (25.9-34.0); Mean Corpuscular Volume 95.5 fL (80.0-94.0); Mean Platelet Volume 9.9 fL (9.5-13.5); Monocytes Absolute Auto 0.8 10^3/uL (0.3-0.8); Monocytes Percent Auto 8.9 % (1.7-12.0); Neutrophils Absolute Auto 6.1 10^3/uL (1.4-6.5); Neutrophils Percent Auto 72.7 % (43.0-75.0); Platelet Count 222 10^3/uL (150-450); Red Blood Count 4.19 10^6/uL (4.70-6.10); Red Cell Distribution Width 11.5 % (11.0-15.0); White Blood Count 8.4 10^3/uL (4.0-11.0)
[2024-04-23 16:50] LABS: Estimated Average Glucose 137 mg/dL; Glycohemoglobin A1C 6.4 % (4.5-6.2)
[2024-04-23 17:28] LABS: Alanine Aminotransferase 25 U/L (16-63); Albumin Globulin Ratio 1.1; Albumin Level 3.7 g/dL (3.4-5.0); Alkaline Phosphatase 79 U/L (46-116); Anion Gap 12.3; Aspartate Amino Transferase 14 U/L (15-37); BUN Creatinine Ratio 17.4; Bilirubin Total 0.6 mg/dL (0.2-1.0); Calcium 9.4 mg/dL (8.5-10.1); Chloride 105 mmol/L (98-107); Estimated GFR (African America >60 (>=60); Estimated GFR (Non-African Ame >60 (>=60); Globulin 3.4 g/dL; Glucose 129 mg/dL (74-106); Potassium 4.3 mmol/L (3.5-5.1); Sodium 142 mmol/L (136-145); Thyroid Stimulating Hormone 1.864 uIU/mL (0.358-3.740); Total Protein 7.1 g/dL (6.4-8.2)
== END 2024-04-23 16:09 | disposition home or self-care (01) ==
LOC: LAB 16:10
PROVIDERS: PCP Internal Medicine; Visit Provider Internal Medicine
DX: E11.65 Type 2 diabetes mellitus with hyperglycemia (principal); N18.31 Chronic kidney disease, stage 3a; R53.83 Other fatigue; I12.9 Hypertensive chronic kidney disease with stage 1 through stage 4 chronic kidney disease, or unspecified chronic kidney disease
CPT/HCPCS: 36415; 80053; 83036; 84443; 85025

== ENCOUNTER 2024-06-25 13:00 | Outpatient (OUT) | payer MEDICARE, OTHER, SELFPAY ==
--- NOTE | 2024-06-25 13:04 | CT_ITS ---
The [address] [address] Patient Name: JACINTA TSANG MRN: [id number] date: 1945 Sex: M Assigned Patient Location: CT Current Patient Location: Accession/Order Number: [id number] Exam Date: 06/25/2024 13:08 Report Date: 06/27/2024 05:52 At the request of: MELANIE GAYLE Procedure: CT chest wo con EXAMINATION: CT chest wo con HISTORY: Multiple Pulmonary Nodule, Adenocarcinoma Right Lung ; follow-up 6 mm nodule within left lower lobe COMPARISON: CT chest 01/01/2024, 03/07/2022 TECHNIQUE: Axial, Coronal, and Sagittal images were created without the administration of IV contrast material. Dose reduction techniques were achieved by using automated exposure control and/or adjustment of mA and/or kV according to patient size and/or use of iterative reconstruction technique. FINDINGS: LUNGS: 7 mm nodule within left lower lobe lateral costal phrenic angle. Stable 4 mm nodule within lateral right middle lobe at level of aortic arch. Stable surgical changes from right upper lobe lobectomy. PLEURA: No mass, effusion, or pneumothorax. VASCULATURE: No abnormality. NEDA: Calcified right hilar lymph nodes suggestive of chronic granulomatous disease. MEDIASTINUM: Calcified lymph nodes. CARDIAC: No enlargement, pericardial thickening, or pericardial effusion. Coronary Artery calcifications: Coronary calcifications are moderate. AORTA: No aneurysm or dissection. CHEST WALL: No mass or axillary adenopathy BONES: Old healed rib fracture(s). LIMITED ABDOMEN: No suspicious findings. Limited images of the upper abdomen. OTHER: Negative. CT/CT chest wo con IMPRESSION: 1. Lung-RADS Category 3- Probably benign. Probably benign finding(s)- short term follow up suggested; includes nodules with a low likelihood of becoming a clinically active cancer. Six month LDCT. 2. Again, slight interval increase in size of a now 7 mm nodule within the left lower lobe lateral costophrenic angle (6 mm on 01/01/2024, 5 mm on 03/07/2022). This is below criteria for PET imaging. Additional follow-up CT chest in 6 months is recommended. Electronically authenticated by: ARTURO JJ Date: 06/27/2024 05:52
== END 2024-06-25 13:01 | disposition home or self-care (01) ==
LOC: CT 13:00
PROVIDERS: PCP Internal Medicine; Visit Provider Internal Medicine
DX: R91.8 Other nonspecific abnormal finding of lung field (principal); C34.91 Malignant neoplasm of unspecified part of right bronchus or lung
CPT/HCPCS: 71250

== ENCOUNTER 2024-12-12 14:09 | Outpatient (OUT) | payer MEDICARE, OTHER, SELFPAY ==
--- NOTE | 2024-12-12 14:15 | CT_ITS ---
The [address] [address] Patient Name: JACINTA TSANG MRN: [id number] date: 1945 Sex: M Assigned Patient Location: CT Current Patient Location: CT Accession/Order Number: [id number] Exam Date: 12/12/2024 15:01 Report Date: 12/12/2024 15:05 At the request of: MELANIE GAYLE DO Procedure: CT chest wo con CT CHEST WITHOUT IV CONTRAST: CLINICAL HISTORY: Adenocarcinoma Of Right Lung COMPARISON: CT chest 06/25/2024 TECHNIQUE: Spiral images were obtained through the chest without IV contrast. This CT exam was performed using one or more following dose reduction techniques: Automated exposure control, adjustment of the mA and/or kV according to patient size, or use of iterative reconstruction technique. FINDINGS: Mediastinum:Thoracic aorta appears normal in caliber. Pulmonary trunk appears nondilated. No pericardial effusion. Calcified mediastinal and right hilar lymph nodes. The esophagus is grossly unremarkable. Lungs:Lobectomy changes involving the right lung with associated scarring. No consolidation pneumothorax or pleural effusion. Stable 6 mm noncalcified pulmonary nodule left lower lobe series 4 image 74 a few tree-in-bud nodules involving the left lower lobe as well. Stable 4 mm nodule right middle lobe series 4 image 34. Abd:No acute findings. Soft tissues/Bones: No acute findings. Osseous structures demonstrate degenerative change. CT/CT chest wo con IMPRESSION: No CT evidence of progression of disease. Stable nodularity left lower lobe and right middle lobe largest measuring 6 mm. Impression dictated by: Chiki Ruth Jr., D.O. 12/12/2024 3:05 PM Dictation Location: [employer] Electronically authenticated by: [id number] Y Date: 12/12/2024 15:05
== END 2024-12-12 14:10 | disposition home or self-care (01) ==
LOC: CT 14:09
PROVIDERS: PCP Internal Medicine; Visit Provider Internal Medicine
DX: C34.91 Malignant neoplasm of unspecified part of right bronchus or lung (principal); R91.8 Other nonspecific abnormal finding of lung field
CPT/HCPCS: 71250

== ENCOUNTER 2024-12-23 14:51 | Outpatient (OUT) | payer MEDICARE, OTHER, SELFPAY ==
[2024-12-23 15:15] LABS: Estimated Average Glucose 154 mg/dL
== END 2024-12-23 14:52 | disposition home or self-care (01) ==
LOC: LAB 14:53
PROVIDERS: PCP Internal Medicine; Visit Provider Internal Medicine
DX: E11.65 Type 2 diabetes mellitus with hyperglycemia (principal)
CPT/HCPCS: 36415; 83036

== ENCOUNTER 2025-04-24 15:57 | Outpatient (OUT) | payer MEDICARE, OTHER, SELFPAY ==
--- OUTSIDE RECORDS SUMMARY | 2024-05-01 06:20 | XMS_ITS ---
Author Organization [facility] in [place] Address [address] [place] [address] Care Team Providers Care Superintendent Electric Power Name Role Phone Tab Barfield DO Primary Care Provider Brandt Aquino [phone] REASON FOR VISIT Reschedule Encounters Encounter Location Date Provider Diagnosis Pulmonary Medicine [place] [address] [place] [address] 05/01/2024 Brandt Paz Plan Of Treatment No Information Progress Notes * Bridger ROBLESDOB:[birth year] (78 yo M)Acc No.[id number]:05/01/2024 Patient: Gely Bridger RAYGOZA :1945 A ge:78 Y S ex:Male Address:[address] [place] [address], [address] * true * Date: Generated for Mara hernández/Christina/eTransmitting on: 0 04/24/2025 03:59 PM EDT
--- OUTSIDE RECORDS SUMMARY | 2024-06-25 11:00 | XMS_ITS ---
Author Organization [facility] in [place] Address [address] [place] [address] Care Team Providers Care Manager Flight Name Role Phone Tab Barfield DO Primary Care Provider Brandt Aquino Unavailable [phone] REASON FOR VISIT 6MO-ASTHMA, THEODORE Encounters Encounter Location Date Provider Diagnosis Pulmonary Medicine [address] [address] 06/25/2024 Brandt Paz Plan Of Treatment No Information Progress Notes * Birdger ROBLESDOB:[birth year] (79 yo M)Acc No.[id number]:06/25/2024 UNLOCKED PROGRESS NOTE Follow Up Patient: Bridger MARTINI Provider: Oz Paz DO :1945 A ge:78 Y S ex:Male Date:06/25/2024 Address:[address] [place], [place] [id number] Pcp:Tab Barfield DO Subjective: * Chief Complaints: * 1 . 6MO-ASTHMA, THEODORE. * Medical History: Objective: * Vitals: Assessment: Plan: * Treatment: * * Electronic signature of Marisel Paz DO on 04/24/2025 at 04:00 PM EDT Sign off status: Pending Visit Status: R /S By O/P (Rescheduled by Office/Provider) * Provider: Oz Paz DO Date: 08/25/2023 Generated for Mara hernández/Christina/Ryansmitting on: 0 04/24/2025 04:00 PM EDT
--- OUTSIDE RECORDS SUMMARY | 2024-07-03 10:30 | XMS_ITS ---
Author Organization [facility] in [place] Address [address] [place] [address] Care Team Providers Care Beauty Counselor Name Role Phone Tab Barfield DO Primary Care Provider Juanita silva Brandt Paz Unavailable [phone] Allergies Allergen (clinical drug ingredient) Drug/Non Drug Allergy documented on EMR Reaction Allergy Type Onset Date Status Penicillin G Potassi um (penicillin) Unknown Drug Allergy Active Mirapex Leg pain Drug Allergy Active REASON FOR VISIT 6MO-ASTHMA, THEODORE Medications Medication SIG (Take, Route, Frequency, Duration) Notes Start Date End Date Status Pravastatin Sodium 80 MG 1 tablet Orally Once a day Active Montelukast Sodium 10 MG 1 tablet Orally Once a day Active metFORMIN HCl 500 MG TAKE [address] [facility] ONCE DAILY WITH A MEAL Oral for 30 Days Active Losartan Potassium 100 MG 1 tablet Orall y Once a day Active Tamsulosin HCl 0.4 MG 1 capsule Orally O nce a day Active Fluticasone-Salmeterol 500-50 MCG/ACT 1 puff Inhalation Twice a day Active Escitalopram Oxalate 10 MG 1 tablet Oral ly Once a day Active amLODIPine Besylate 10 MG 1 tablet Orall y Once a day Active Albuterol Sulfate (2.5 MG/3ML) 0.083% 3 mL as needed Inhalation every 6 hrs Active Ventolin HFA 108 (90 Base) MCG/ACT 2 puffs as needed Inhalation every 4 hrs Active Social History Tobacco Use: Social History Observation Description Date Details (start date - stop date) Former Smoker NA - NA Tobacco Control (Standard) Question Answer Notes Tobacco use: Former smoker How long has it been since y ou last smoked? Greater than 10 years Additional Findings: Tobacco non-user Ex -very heavy cigarette smoker (40+/day) Vital Signs Temperature 95.9 degrees Fahrenheit 07/03/20 24 Blood pressure systolic 138 mm Hg 07/03/20 24 Blood pressure diastolic 75 mm Hg 024 Heart Rate 79 /min 07/03/2024 Respiratory Rate 18 /min 07/03/2024 Height 68 in 07/03/2024 Weight 207.8 lbs 07/03/2024 BMI 31.59 kg/m2 07/03/2024 Oximetry 94 % 07/03/2024 Encounters Encounter Location Date Provider Diagnosis [facility] [address] [place] [address] 07/03/2024 Brandt Paz Moderate persistent asthma, uncomplicated J45.40 ; Adenocarcinoma of right lung C34.91 ; Obstructive sleep apnea G47.33 ; Restless leg syndrome G25.81 ; 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 He has tried Trelegy 200 and Breztri without significant benefit. Attempted to get him Fasenra d/t eosinophilia, but that is too expensive. Cardiopulmonary exercise stress testing essentially showed obesity + deconditioning. I reviewed this to the patient again and explained it to his . At this time, I do not have anything additional to offer, especially as finances are the major factor. He states he did not notice much of a difference in Trelegy 200 over Wixela, so he stated that it is not worth an extra $600/year to change back to Trelegy - he said that he will just stick with Wixela. 07/03/2024 Adenocarcinoma of right lung (ICD-10 - C34.91) 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[facility]; Stage 1A3 (T1/N0/M0) No suspicious findings in right lung, but there has been a very slowly increasing LLL costophrenic angle nodule: -06/25/2024: 7mm -01/01/2024: 6mm -03/07/2022: 5mm Etiology is unclear. Major concern is for a second adenocarcinoma given the very slow growth. At 7mm, it still remains under PET/CT threshold, and given the significant issues with dyspnea after the right upper lobectomy, the patient never again wishes to have part of his lung excised. Therefor the next option is to repeat the chest CT in 6 months, which would be due December 2024 and F/U after. 07/03/2024 Obstructive sleep apnea (ICD-10 - G47.33) PSG 06/15/2022: AHI 30.6 Seps-tm-xbtc encounter performed with the patient to document continued need for PAP therapy. -PSG 06/15/2022; AHI 30.6-PAP titration 01/16/2023: CPAP [id number] -Compliance was reviewed from 06/02/2024 - 07/01/2024-Total days used: 30 (100%)-Total of all days >4 hours of use 30 (100%)-Current mode & pressures: AirSense 11 AutoSet - CPAP 15cm [id number] AHI: 2.6-Air leak 95th percentile: 0.5L/min-Mask/harn ess fitting: No significant complaints today - he is using cotton balls under his ears-Sleep quality: Improved with CPAP use-Daytime hypersomnolence: Decreased with CPAP use-Recommendation s: He continues to have superb compliance. Previously complained that the straps were either too tight or too loose, but today he has no issues. Continue PAP @ HS/naps. Refill/renew/reord er supplies, CPAP as required. 07/03/2024 Restless leg syndrome (ICD-10 - G25.81) Tried and failed Mirapex (caused leg pain). No significant complaints regarding this today. 07/03/2024 Peripheral eosinophilia (ICD-10 - D72.19) Prescribed Fasenra, but was too expensive and therefore he is not on any biologic treatment. 07/03/2024 Diabetes mellitus type 2, controlled (ICD-10 - E11.9) Steroids prescribed for this patient's underlying pulmonary disease can adversely affect blood glucose levels, inducing hyperglycemia and worsening underlying diabetes. The patient is encouraged to follow up with the primary care provider to create a plan to manage diabetes in this situation. 07/03/2024 FPC (current) use of inhaled steroids (ICD-10 - Z79.51) Patient was counseled to rinse & gargle with water after inhaled corticosteroid use. 07/03/2024 History of tobacco abuse (ICD-10 - Z87.891) This patient does not meet current LDCT criteria (e.g. age, time from cessation, # pack-years). 07/03/2024 Obesity, unspecified (ICD-10 - E66.9) Patient's weight is inducing a restrictive pulmonary physiology. Weight loss indicated: Decrease calories, increase activity. 07/03/2024 Other Reviewed with patient: CPET + RHC 04/27/2023 showed mild postcapillary pulmonary hypertension (mPAP 33mmHg, Wood 1.65). Interpretation: Dyspnea is associated with lobectomy + obesity/deconditio tyler. He was told to decrease salt intake and be more active. Plan Of Treatment Treatment Notes Assessment Notes Moderate persistent asthma, uncomplicate d Patient remains dyspneic with a wheeze. He has tried Trelegy 200 and Breztri without significant benefit. Attempted to get him Fasenra d/t eosinophilia, but that is too expensive. Cardiopulmonary exercise stress testing essentially showed obesity + deconditioning. I reviewed this to the patient again and explained it to his . At this time, I do not have anything additional to offer, especially as finances are the major factor. He states he did not notice much of a difference in Trelegy 200 over Wixela, so he stated that it is not worth an extra $600/year to change back to Trelegy - he said that he will just stick with Wixela. Adenocarcinoma of right lung No suspicious findings in right lung, but there has been a very slowly increasing LLL costophrenic angle nodule: -06/25/2024: 7mm -01/01/2024: 6mm -03/07/2022: 5mm Etiology is unclear. Major concern is for a second adenocarcinoma given the very slow growth. At 7mm, it still remains under PET/CT threshold, and given the significant issues with dyspnea after the right upper lobectomy, the patient never again wishes to have part of his lung excised. Therefor the next option is to repeat the chest CT in 6 months, which would be due December 2024 and F/U after. Obstructive sleep apnea Drvg-bl-euxj encounter performed with the patient to document continued need for PAP therapy. -PSG 06/15/2022; AHI 30.6-PAP titration 01/16/2023: CPAP [id number] -Compliance was reviewed from 06/02/2024 - 07/01/2024-Total days used: (100%)-Total of all days >4 hours of use (100%)-Current mode & pressures: AirSense 11 AutoSet - CPAP 15cm [id number] AHI: 2.6-Air leak 95th percentile: 0.5L/min-Mask/harness fitting: No significant complaints today - he is using cotton balls under his ears-Sleep quality: Improved with CPAP use-Daytime hypersomnolence: Decreased with CPAP use-Recommendations: He continues to have superb compliance. Previously complained that the straps were either too tight or too loose, but today he has no issues. Continue PAP @ HS/naps. Refill/renew/reorder supplies, CPAP as required. Restless leg syndrome Tried and failed Mirapex (caused leg pain). No significant complaints regarding this today. Peripheral eosinophilia Prescribed Fasenra, but was too expensive and therefore he is not on any biologic treatment. Diabetes mellitus type 2, controlled Steroids prescribed for this patient's underlying pulmonary disease can adversely affect blood glucose levels, inducing hyperglycemia and worsening underlying diabetes. The patient is encouraged to follow up with the primary care provider to create a plan to manage diabetes in this situation. superintendent terminal (current) use of i nhaled steroids Patient was counseled to rinse & gargle with water after inhaled corticosteroid use. History of tobacco abuse This patient does not meet current LDCT criteria (e.g. age, time from cessation, # pack-years). Obesity, unspecified Patient's weight is inducing a restrictive pulmonary physiology. Weight loss indicated: Decrease calories, increase activity. Other Reviewed with patient: CPET + RHC 04/27/2023 showed mild postcapillary pulmonary hypertension (mPAP 33mmHg, Wood 1.65). Interpretation: Dyspnea is associated with lobectomy + obesity/deconditioning. He was told to decrease salt intake and be more active. Next Appt Details Follow Up: 6 Months, Reason: Abnormal chest CT, asthma Procedure Notes * Category Sub-Category Detail Notes PFT Data: 03/03/2023 - [facility]- FEV1/FVC: 57%-FEV1: 63%-FVC: 83%-Bronchodilator response: None-RV: 91%-T%-DLCO: 62%06/02/2022-FEV1/FVC: 72%-FEV1: 58%-FVC: 58%-Bronchodilator response: None-RV: 87%-T%-DLCO: 57%-Flow-volume loop: Moderate obstruction10/07/2021-FEV1/FVC: 70%-FEV1: 66%-FVC: 74%-Bronchodilator response: None-RV: 76%-T%-DLCO: 59%01/08/2021-FEV1/FVC: 56%-FEV1: 80%-FVC: 80%-Bronchodilator response: Positive in FVC-RV: 106%-T%-DLCO: 90% Progress Notes * Bridger ROBLESDOB:[birth year] (78 yo M)Acc No.[id number]:07/03/2024 Follow Up Patient: Gely HAMMONDAndria Bridger Marlene Provider: Oz Paz DO :1945 A ge:78 Y S ex:Male Date:07/03/2024 Address:[address] [place], [place] [id number] Pcp:Tab Barfield, Check In:02:36 PM ESTCheck O ut:03:10 PM EST Subjective: * Chief Complaints: * 6 MO-ASTHMA, THEODORE * HPI: E pworth Sleepiness Scale: Patient is doing about the same as last time. Still remains SOB with activity. He looked into Fasenra, but states it was $1000/month which he can't afford. Additonally, he looked into [employer] the next year and that will cost him an additional $600/year beyond what he is paying now for [employer]. His is present and is asking multiple questions which were previously addressed with the patient and his daughter. She is concerned about the wheeze and any treatments. I explained that I have tried him on multiple inhalers which have had little benefit. Additionally, I reviewed the cardiopulmonary exercise stress test showed that he is overweight and out of shape. Reviewed PAP compliance - he has superb compliance at 100% of all days >[address] 06/25/2024. The suspicious nodule in the LLL costophrenic angle has increased in size from 5mm 03/07/2022 to 6mm 01/01/2024 to 7mm 06/25/2024. No other abnormal or suspicious findings were noted. MA Intake Comments:. [place] Sleepiness Scale C susan of dozing while sitting and reading:?0 - Never C susan of dozing while watching TV: 0 - Never C susan of dozing while sitting in a public place: 0 - Never C susan of dozing as a passenger in a car for an hour without a break: 0 - Never C susan of dozing while lying down in the afternoon to rest: 0 - Never C susan of dozing while sitting and talking to someone: 0 - Never C susan of dozing while sitting quietly after lunch: 0 - Never C susan of dozing in a stopped car for a few minutes in traffic: 0 - Never T OTAL SCORE: 0 Patient presents for a follow up for Asthma/THEODORE. Patient is currently using a PAP and denies any complaints with the machine or supplies. DME: Rita. Patient states his breathing is unchanged since his last visit. Patient was prescribed Fasenra the last visit but was unable to afford the medication. Patient is under the care [facility]. * ROS: G eneral/Constitutional: Fever or sweats d enies. C hange of appetite d enies. C hills d enies. W eight Change d enies. H EENT: Dry mouth d enies. S ore throat d enies. O ral Ulcers d enies. P ost Nasal Drip D enies. C ongestion D enies. H oarseness?Denies. C ardiovascular: Tachycardia d enies. C hest pain d enies. P alpitations d enies. R espiratory: Chest tightness d enies. P leurisy D enies. D yspnea w ith activity. C ough a dmits. H emoptysis d enies. W heezing a dmits. G astrointestinal: Acid Reflux/GERD/Heartburn d enies. D ysphagia d enies. M usculoskeletal: Arthralgias/joint pain D enies. S kin: Wounds d enies. E asy bruising d enies. R clare?denies. N eurologic: Seizures d enies. T remor d enies. H ematology: Abnormal Bleeding d enies. P sychiatric: Anxiety d enies. 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 Modified On:06/27/2023 Status:confirmed G25.81 Restless leg syndrom e Modified On:06/27/2023 Status:confirmed G47.33 Obstructive sleep ap beth Modified On:06/27/2023U Status:confirmed E11.9 Diabetes mellitus ty pe 2, controlled Modified On:06/27/2023 Status:confirmed R91.8 Multiple pulmonary n odules Modified On:01/03/2024 Status:confirmed Z87.891 History of tobacco a buse Modified On:06/27/2023 Status:confirmed C34.91 Adenocarcinoma of ri ght lung Modified On:06/27/2023U Status:confirmed D72.19 Peripheral eosinophi neha Modified On:06/27/2023U Status:confirmed I27.29 Other secondary pulm onary hypertension Modified On:06/27/2023U Status:confirmed E66.9 Obesity, unspecified Modified On:06/27/2023 Status:confirmed Z68.31 Body mass index [BMI ] 31.0-31.9, adult Modified On:12/27/2023 Status:confirmed * Medical History: * Surgical History: C holecystectomy Sigmoidoscopy 07/15/2021obectomy: lung-Upper Right Lobe 02/19/2021GD Open reduction, internal fixation (ORIF)-Right Calcaneus Cardiac Cath with CPET- [facility] 3Colonoscopy * Hospitalization/Major Diagno stic Procedure: D enies Past Hospitalization * Family History: F ather: asthma, diagnosed with Unspecified heart disease. S ister(s): asthma. P aternal Grandfather: diagnosed with Unspecified essential hypertension. M aternal Grandmother: diagnosed with Unspecified heart disease. * Social History: T obacco Use: T obacco Control (Standard) T obacco use: F ormer smoker H ow long has it been since you last smoked??Greater than 10 years A dditional Findings: Tobacco non-user E x-very heavy cigarette smoker (40+/day) Electronic Cigarette use C urrent user N o LM: Additional Tobacco Questions N umber of Years Pt Smoked: 3 0 ; Quit 1999 N umber of Packs per Day: 2 = 60 pack-years When did you stop smokin. 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 D rugs/Alcohol: D rugs H ave you used drugs other than those for medical reasons in the past 12 months? N o D oes the Patient have a History of Drug Abuse in the Past? N o Caffeine I ntake: 1 -2 cups per day Coffee Do you drink alcohol?: Yes, Socially. Do you smoke marijuana?: Denies. * Medications: T akingAlbuterol Sulfate (2.5 MG/3ML) 0.083% Nebulization Solution 3 mL as needed Inhalation every 6 hrs amLODIPine Besylate 10 MG Tablet 1 tablet Orally Once a day Escitalopram Oxalate 10 MG Tablet 1 tablet Orally Once a day Fluticasone- Salmeterol 500-50 MCG/ACT Aerosol Powder Breath Activated 1 puff Inhalation Twice a day Losartan Potassium 100 MG Tablet 1 tablet Orally Once a day metFORMIN HCl 500 MG Tablet TAKE 1 TABLET BY MOUTH ONCE DAILY WITH A MEAL Oral Montelukast Sodium 10 MG Tablet 1 tablet Orally Once a day Pravastatin Sodium 80 MG Tablet 1 tablet Orally Once a day Tamsulosin HCl 0.4 MG Capsule 1 capsule Orally Once a day Ventolin HFA(Albuterol Sulfate HFA) 108 (90 Base) MCG/ACT Aerosol Solution 2 puffs as needed Inhalation every 4 hrs Taking Albuterol Sulfate (2.5 MG/3ML) 0.083% Nebulization Solution 3 mL as needed Inhalation every 6 hrs Taking amLODIPine Besylate 10 MG Tablet 1 tablet Orally Once a day Taking Escitalopram Oxalate 10 MG Tablet 1 tablet Orally Once a day Taking Fluticasone-Salmeterol 500-50 MCG/ACT Aerosol Powder Breath Activated 1 puff Inhalation Twice a day Taking Losartan Potassium 100 MG Tablet 1 tablet Orally Once a day Taking metFORMIN HCl 500 MG Tablet TAKE 1 TABLET BY MOUTH ONCE DAILY WITH A MEAL Oral Taking Montelukast Sodium 10 MG Tablet 1 tablet Orally Once a day Taking Pravastatin Sodium 80 MG Tablet 1 tablet Orally Once a day Taking Tamsulosin HCl 0.4 MG Capsule 1 capsule Orally Once a day Taking Ventolin HFA(Albuterol Sulfate HFA) 108 (90 Base) MCG/ACT Aerosol Solution 2 puffs as needed Inhalation every 4 hrs DiscontinuedMirtazapine 7.5 MG Tablet 2 tablets at bedtime Orally Once a day Medication List reviewed and reconciled with the patientDiscontinued Mirtazapine 7.5 MG Tablet 2 tablets at bedtime Orally Once a day Medication List reviewed and reconciled with the patient * Allergies: P enicillin G Potassium (penicillin): AllergyMirapex: Leg pain - Side Effects - Criticality [place][Allergies Verified] Objective: * Vitals: W t:207.8lbs, Ht: 68 in, BP:sittin/75mm Hg, Temp:Forehead:95.9F, HR:79/min, RR:18/min, BMI:31.59Index, Oxygen sat %:Room Air:94%, Ht-cm: 172.72 cm, Wt-k.26 kg. * Examination: E xam: GENERAL APPEARANCE: A ppears stated age. Skin N o rash. Mouth P ink and moist. Oropharynx/Tongue M allampati Class III. No candidiasis.? Trachea M idline. Chest N ormal. Respiratory Normal M ovements, E ffort N ormal. Auscultation D iminished but clear to auscultation. Cardiac R egular rate and rhythm. Gastrointestinal N ormal. Vascular N o edema. Musculoskeletal N ormal posture. Neurological F ocal, intact. Psychiatric A lert and oriented x3. Mentation/Cognition N ormal. Assessment: * Assessment: 1. A denocarcinoma of right lung - C34.91 (Primary) N otes :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[facility]; Stage 1A3 (T1/N0/M0) 2 . M oderate persistent asthma, uncomplicated - J45.40 N otes :Trelegy 200 > Advair 250 + Spiriva 1.25 >>> Breztri 3 . O bstructive sleep apnea - G47.33 N otes :PSG 06/15/2022: AHI 30.6 4 . R estless leg syndrome - G25.81 5 . P eripheral eosinophilia - D72.19 6 . D iabetes mellitus type 2, controlled - E11.9 7. L trever term (current) use of inhaled steroids - Z79.51 8 . H istory of tobacco abuse - Z87.891 9 . O besity, unspecified - E66.9 Plan: * Treatment: 2. M oderate persistent asthma, uncomplicated Notes: Patient remains dyspneic with a wheeze. He has tried Trelegy 200 and Breztri without significant benefit. Attempted to get him Fasenra d/t eosinophilia, but that is too expensive. Cardiopulmonary exercise stress testing essentially showed obesity + deconditioning. I reviewed this to the patient again and explained it to his . At this time, I do not have anything additional to offer, especially as finances are the major factor. He states he did not notice much of a difference in Trelegy 200 over Wixela, so he stated that it is not worth an extra $600/year to change back to Trelegy - he said that he will just stick with Wixela. 3. O bstructive sleep apnea Notes: Ywcm-do-jxou encounter performed with the patient to document continued need for PAP therapy. -PSG 06/15/2022; AHI 30.6-PAP titration 01/16/2023: CPAP [id number] -Compliance was reviewed from 06/02/2024 - 07/01/2024-Total days used: (100%)-Total of all days >4 hours of use 30 (100%)-Current mode & pressures: AirSense 11 AutoSet - CPAP 15cm [id number] AHI: 2.6-Air leak 95th percentile: 0.5L/min-Mask/harness fitting: No significant complaints today - he is using cotton balls under his ears-Sleep quality: Improved with CPAP use-Daytime hypersomnolence: Decreased with CPAP use-Recommendations: He continues to have superb compliance. Previously complained that the straps were either too tight or too loose, but today he has no issues. Continue PAP @ HS/naps. Refill/renew/reorder supplies, CPAP as required. 4. R estless leg syndrome Notes: Tried and failed Mirapex (caused leg pain). No significant complaints regarding this today. ? 5. P eripheral eosinophilia Notes: Prescribed Fasenra, but was too expensive and therefore he is not on any biologic treatment. ? 6. D iabetes mellitus type 2, controlled Notes: Steroids prescribed for this patient's underlying pulmonary disease can adversely affect blood glucose levels, inducing hyperglycemia and worsening underlying diabetes. The patient is encouraged to follow up with the primary care provider to create a plan to manage diabetes in this situation. ? 7. L trever term (current) use of inhaled steroids Notes: Patient was counseled to rinse & gargle with water after inhaled corticosteroid use. 8. H istory of tobacco abuse Notes: This patient does not meet current LDCT criteria (e.g. age, time from cessation, # pack-years).? 9. O besity, unspecified Notes: Patient's weight is inducing a restrictive pulmonary physiology. Weight loss indicated: Decrease calories, increase activity. 10. O thers Notes: Reviewed with patient: CPET + RHC 04/27/2023 showed mild postcapillary pulmonary hypertension (mPAP 33mmHg, Wood 1.65). Interpretation: Dyspnea is associated with lobectomy + obesity/deconditioning. He was told to decrease salt intake and be more active. * Procedures: P FT: Data: 03/03/2023 - [facility] -FEV1/FVC: 57% -FEV1: 63% -FVC: 83% -Bronchodilator response: None -RV: 91% -T% -DLCO: 62% 06/02/2022 -FEV1/FVC: 72% -FEV1: 58% -FVC: 58% -Bronchodilator response: None -RV: 87% -T% -DLCO: 57% -Flow-volume loop: Moderate obstruction 10/07/2021 -FEV1/FVC: 70% -FEV1: 66% -FVC: 74% -Bronchodilator response: None -RV: 76% -T% -DLCO: 59% 01/08/2021 -FEV1/FVC: 56% -FEV1: 80% -FVC: 80% -Bronchodilator response: Positive in FVC -RV: 106% -T% -DLCO: 90%. * Procedure Codes: * Preventive Medicine: COVID Vaccination: H as patient had COVID Vaccination? COVID Vaccination Y es 06/30/2023 Immunization Status: P neumovacc P revnar 20- 04/06/2022. I nfluenza 0 04/23/2024. Screenings/Counseling: F ALL RISK SCREENING Fall Risk Assessment: N o falls in the past year Are you afraid of falling? N o T OBACCO ACTION PLAN Patient counselled on the dangers of tobacco use and urged to quit. 1 09/02/2023 Former Educational materials on smoking cessation provided 09/02/2023 Former B IA ACTION PLAN Above Normal BMI Follow-up D ietary management education, guidance, and counseling R SV-06/30/2023. * Follow Up: 6 Months (Reason: Abnormal chest CT, asthma) * * Sign off status: Completed Visit Status: C HK (Check Out) true * Provider: Oz Paz DO Date: 09/02/2023 Generated for Mara hernández/Christina/Krystleitting on: 0 04/24/2025 04:00 PM EDT History and Physical Notes * HPI (History of Present Illness) Category Sub-Category Detail Notes Category Not es [place] Sleepiness Scale [place] Sleepiness Scale Chance of dozing while sitting and reading:: 0 - Never Patient presents for a follow up for Asthma/THEODORE. Patient is currently using a PAP and denies any complaints with the machine or supplies. DME: [facility]. Patient states his breathing is unchanged since his last visit. Patient was prescribed Fasenra the last visit but was unable to afford the medication. Patient is under the care [facility]. Chance of dozing while watching TV:: 0 - Never Chance of dozing while sitting in a publ ic place:: 0 - Never Chance of dozing as a passen ed in a car for an hour without a break:: 0 - Never Chance of dozing while lying down in the afternoon to rest:: 0 - Never Chance of dozing while sitting and talki ng to someone:: 0 - Never Chance of dozing while sitting quietly a fter lunch:: 0 - Never Chance of dozing in a stopped car for a few minutes in traffic:: 0 - Never TOTAL SCORE:: 0 Examination Category Sub-Category Detail Notes Category Not es Exam GENERAL APPEARANCE: Appears stated age Skin No rash Mouth Everly and moist Trachea Midline Chest Normal Respiratory Normal Movements, Ef fort Normal Auscultation Diminished but clear to auscultation Percussion Egophony Bronchophony Fremitus Whispered pectoriloquy Cardiac Regular rate and rhy thm Gastrointestinal Normal Vascular No edema Musculoskeletal Normal posture Neurological Focal, intact Psychiatric Alert and oriented x 3 Mentation/Cognition Normal Oropharynx/Tongue Mallampati Class III . No candidiasis
--- OUTSIDE RECORDS SUMMARY | 2024-10-16 12:00 | XMS_ITS ---
Author Organization [facility] Address [facility] [address] Care Team Providers Care Rattan Worker Name Role Phone Sebastien Ramirez Unavailable [phone] ALLERGIES Allergen (clinical drug ingredient) Drug/Non Drug Allergy documented on EMR Reaction Allergy Type Onset Date Status Penicillin G Benzathine Unknown Drug Allergy Active RESULTS Component Value Reference Range Notes COMPREHENSIVE METABOLIC PANE L Reviewed date:10/13/2024 10:01:33 AM Interpretation: Performing Lab:[facility], [facility] [place] [address] [address] Osorio Maguire, PhD., F-AB Notes/Report: 0; 0; 0 FASTING:NO FASTING: NO GLUCOSE 197 65-139 mg/dL Non-fasting reference interval UREA NITROGEN (BUN) 21 7-25 mg/dL CREATININE 1.13 0.70-1.28 mg/dL EGFR 67 > OR = 60 mL/min/1.73m2 BUN/CREATININE RATIO SEE NOTE: 6-22 (calc) Not Reported: BUN and Creatinine are within reference range. SODIUM 140 135-146 mmol/L POTASSIUM 4.3 3.5-5.3 mmol/L CHLORIDE 105 98-110 mmol/L CARBON DIOXIDE 27 20-32 mmol/L CALCIUM 9.1 8.6-10.3 mg/dL PROTEIN, TOTAL 6.5 6.1-8.1 g/dL ALBUMIN 4.1 3.6-5.1 g/dL GLOBULIN 2.4 1.9-3.7 g/dL (calc) ALBUMIN/GLOBULIN RATIO 1.7 1.0-2.5 (calc) BILIRUBIN, TOTAL 0.6 0.2-1.2 mg/dL ALKALINE PHOSPHATASE 58 35-144 U/L AST 13 10-35 U/L ALT 17 9-46 U/L CBC (INCLUDES DIFF/PLT) Reviewed date:10/13/2024 10:01:21 AM Interpretation: Performing Lab:[facility] [employer] Osorio Maguire, PhD., F-AB Notes/Report: 0; 0; 0 FASTING:NO FASTING: NO WHITE BLOOD CELL COUNT 7.2 3.8-10.8 Thousand/ uL RED BLOOD CELL COUNT 4.02 4.20-5.80 Million/uL HEMOGLOBIN 12.6 13.2-17.1 g/dL HEMATOCRIT 38.2 38.5-50.0 % MCV 95.0 80.0-100.0 fL MCH 31.3 27.0-33.0 pg MCHC 33.0 32.0-36.0 g/dL For adults, a slight decrease in the calculated MCHC value (in the range of 30 to 32 g/dL) is most likely not clinically significant; however, it should be interpreted with caution in correlation with other red cell parameters and the patient's clinical condition. RDW 11.5 11.0-15.0 % PLATELET COUNT 227 140-400 Thousand/uL MPV 10.3 7.5-12.5 fL ABSOLUTE NEUTROPHILS [phone] cells/uL ABSOLUTE LYMPHOCYTES 3276 427-4427 cells/uL ABSOLUTE MONOCYTES 734 200-950 cells/uL ABSOLUTE EOSINOPHILS 324 15-500 cells/uL ABSOLUTE BASOPHILS 72 0-200 cells/uL NEUTROPHILS 64.2 LYMPHOCYTES 20.1 MONOCYTES 10.2 EOSINOPHILS 4.5 BASOPHILS 1.0 PSA, TOTAL Reviewed date:10/10/2024 08:00:04 AM Interpretation: Performing Lab:[facility] [employer] Osorio Maguire, PhD., F-AB Notes/Report: 0; 0; 0 FASTING:NO FASTING: NO PSA, TOTAL 0.18 < OR = 4.00 ng/mL The total PSA value from this assay system is standardized against the WHO standard. The test result will be approximately 20% lower when compared to the equimolar-standardized total PSA (Mi Herson). Comparison of serial PSA results should be interpreted with this fact in mind. This test was performed using the Siemens chemiluminescent method. Values obtained from different assay methods cannot be used interchangeably. PSA levels, regardless of value, should not be interpreted as absolute evidence of the presence or absence of disease. Urinary Tract Infections/Ant ibiotic resistance Reviewed date:10/18/2024 08:00:46 AM Interpretation: Performing Lab:[facility], [place], [place], [facility], [facility], [place] Cit Notes/Report: Result Summary: Negative - REASON FOR VISIT 1 yr f/u pros ca labs.....CONFSMS-AM MEDICATIONS Medication SIG (Take, Route, Fr equency, Duration) Notes Start Date End Date Status Diclofenac Active Tamsulosin HCl Activ e Pravastatin Sodium A ctive BuPROPion HBr Active Losartan Potassium A ctive SOCIAL HISTORY Tobacco Use: Social History Observation Description Date Details (start date - stop date) Current Smoker NA - NA Sex Assigned At : Social History Observation Description Sex Assigned At Unknown Tobacco Use/Smoking Question Answer Notes Are you a current every day smoker VITAL SIGNS Blood pressure systolic 129 mm Hg 10/17/19 25 Blood pressure diastolic 70 mm Hg 025 Heart Rate 74 /min 10/16/2024 Height 68 in 10/16/2024 Weight 185 lbs 10/16/2024 BMI 28.13 kg/m2 10/16/2024 Encounters Encounter Location Date Provider Diagnosis [facility] [address] [facility] [address] [place] [address] 10/16/2024 Sebastienanthony Ramirez Testicular hypofunction E29.1 ; Benign prostatic hyperplasia with lower urinary tract symptoms N40.1 ; Malignant neoplasm of prostate C61 ; Calculus of kidney N20.0 ; Acute cystitis without hematuria N30.00 and Gross hematuria R31.0 ASSESSMENTS Encounter Date Diagnosis Assessment Notes Treatment Notes Treatment Clinical Notes Section Notes 10/16/2024 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 Currently symptoms are stable on current therapy. Voiding well without any bothersome symptoms such as nocturia, incontinence. Today I reviewed the patient's studies including a urine flow rate study as well as a post void residual. We discussed these findings. We talked about other options including observation, medical therapy, intervention such as cool thermotherapy in the office or laser enucleation of the prostate 10/18/23 - Doing well on FLomax and PSA is 0.2 10/16/24 On flomax and doing well 10/16/2024 Malignant neoplasm of prostate (ICD-10 - C61) History of prostate cancer for which he is been treated with radiation. Patient is doing well without any significant issues including incontinence, impotence, hematuria, urinary tract infections. Exam is unremarkable. I recommended checking blood work to make sure his cancer is well-controlled and we'll see him back on his next visit. He understands that if he has any problems in the interim he should contact my office to be evaluated. PSA is 0.16 10/18/23 - PSA is 0.2 - stable 10/16/24 PSA is 0.18 -sable fu in 1 yr 10/16/2024 Calculus of kidney (ICD-10 - N20.0) Had recent renal colic and see at an ER told he has a 3 mm stone in the L did not pass will get KUB 10/16/2024 Acute cystitis without hematuria (ICD-10 - N30.00) Patient presents with irritative voiding symptoms and hematuria. I am concerned he may have a urinary tract infection given his symptoms. I have therefore recommended obtaining a urine PCR to rapidly identify the pathogen and provide treatment guidance. I have therefore recommended obtaining a urine PCR to rapidly identify the pathogen and and allow us to tailor the antibiotic regimen depending on the resistance we find in the PCR report. As recent urological data has shown PCR tests can detect bacteria that may not be able to be grown on typical agar. PCR results are often available in less than 24 hours compared with a few days for traditional culture results.nnPCR tests may be superior in some respects to typical urine cultures for detecting and identifying of bacteria. PCR tests detected bacteria in 36% of symptomatic patients who had a negative urine culture result. PCR tests detected more polymicrobial infections than urine cultures detected (20% of patients compared with 7% of patients). Therefore in this situation the PCR test will be much more helpful than a routine urine culture. 10/16/2024 Gross hematuria (ICD-10 - R31.0) Has mod blood in the rine - UTI vs stone PLAN OF TREATMENT Treatment Notes Assessment Notes Benign prostatic hyperplasia with lower urinary tract symptoms He has a history of enlarged prostate which is being managed with observation and medical therapy. Currently symptoms are stable on current therapy. Voiding well without any bothersome symptoms such as nocturia, incontinence. Today I reviewed the patient's studies including a urine flow rate study as well as a post void residual. We discussed these findings. We talked about other options including observation, medical therapy, intervention such as cool thermotherapy in the office or laser enucleation of the prostate 10/18/23 - Doing well on FLomax and PSA is 0.2 10/16/24 On flomax and doing well Malignant neoplasm of prostate History of prostate cancer for which he is been treated with radiation. Patient is doing well without any significant issues including incontinence, impotence, hematuria, urinary tract infections. Exam is unremarkable. I recommended checking blood work to make sure his cancer is well-controlled and we'll see him back on his next visit. He understands that if he has any problems in the interim he should contact my office to be evaluated. PSA is 0.16 10/18/23 - PSA is 0.2 - stable 10/16/24 PSA is 0.18 -sable fu in 1 yr Calculus of kidney Had recent renal colic and see at an ER told he has a 3 mm stone in the L did not pass will get KUB Acute cystitis without hematuria Patient presents with irritative voiding symptoms and hematuria. I am concerned he may have a urinary tract infection given his symptoms. I have therefore recommended obtaining a urine PCR to rapidly identify the pathogen and provide treatment guidance. I have therefore recommended obtaining a urine PCR to rapidly identify the pathogen and and allow us to tailor the antibiotic regimen depending on the resistance we find in the PCR report. As recent urological data has shown PCR tests can detect bacteria that may not be able to be grown on typical agar. PCR results are often available in less than 24 hours compared with a few days for traditional culture results.nnPCR tests may be superior in some respects to typical urine cultures for detecting and identifying of bacteria. PCR tests detected bacteria in 36% of symptomatic patients who had a negative urine culture result. PCR tests detected more polymicrobial infections than urine cultures detected (20% of patients compared with 7% of patients). Therefore in this situation the PCR test will be much more helpful than a routine urine culture. Gross hematuria Has mod blood in the rine - UTI vs stone Pending Test Test Name Order Date Urinalysis 10/16/2024 UTI PCR 10/16/2024 Next Appt Details Follow Up: 1 Year, Reason: Provider Name:Sebastien Ramirez, 0 10/15/2025 04:00:00 PM, [address] [facility] [address], [place], [address], History and Physical Notes * HPI (History of Present Illness) Category Sub-Category Detail Notes Category Not es Prostate cancer Prostate cancer was diagnosed 11/29 Current symptoms include weak stream prostate cancer risk - is 6 out of 10 TNM Classification of Malignant Tumours (TNM) T1c The [place] grade is 4+4 Recent work up includes a PSA (prostate- specific antigen) 5.7 Prior treatment(s) included Pt had XRT a nd lupron at [facility] Hematuria Onset of hematura: Started 09/29 - happene d 2 weeks prior also duration of hematuria: days Flank pain None Gross or microscopic Gross Severity Moderate Hx of stones : No previous stones Hx of bladder cancer No Hx of smoking Yes 2 ppd x 30 quit 20 years ago Family Hx of bladder cancer or kidney ca ncer No Affects nl activities ? No Previous workup None
--- OUTSIDE RECORDS SUMMARY | 2024-12-31 10:00 | XMS_ITS ---
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 Name Role Phone Tab Barfield DO Primary Care Provider Juanita silva Brandi Brandt Unavailable [phone] Allergies Allergen (clinical drug ingredient) Drug/Non Drug Allergy documented on EMR Reaction Allergy Type Onset Date Status Penicillin G Potassi um (penicillin) Unknown Drug Allergy Active Mirapex Leg pain Drug Allergy Active REASON FOR VISIT 6 mos f/u abnormal chest CT/asthma Medications Medication SIG (Take, Route, Frequency, Duration) Notes Start Date End Date Status Montelukast Sodium 10 MG 1 tablet Orally Once a day for 90 days Active Ventolin HFA 108 (90 Base) MCG/ACT 2 puffs as needed for SOB Inhalation Q4H for 90 days Dispense #3 inhalers Active Tamsulosin HCl 0.4 MG 1 capsule Orally Once a day Active Pravastatin Sodium 80 MG 1 tablet Orally Once a day Active Fluticasone-Salmeter ol 500-50 MCG/ACT 1 puff Inhalation Twice a day for 90 days Rinse after use - Dispense #3 inhalers May substitute with Wixela, Advair, or generic fluticasone/salme terol - whichever is covered and cheapest for patient Active metFORMIN HCl 500 MG TAKE 1 TABLET BY MOUTH ONCE DAILY WITH A MEAL Oral for 30 Days Active Losartan Potassium 100 MG 1 tablet Orally Once a day Active amLODIPine Besylate 10 MG 1 tablet Orally Once a day Active Albuterol Sulfate (2.5 MG/3ML) 0.083% 3 mL as needed Inhalation every 6 hrs Not-Taking Escitalopram Oxalate 10 MG 1 tablet Orally Once a day Active Social History Tobacco Use: Social History Observation Description Date Details (start date - stop date) Former Smoker NA - NA Tobacco Control (Standard) Question Answer Notes Tobacco use: Former smoker How long has it been since y ou last smoked? Greater than 10 years Additional Findings: Tobacco non-user Ex -very heavy cigarette smoker (40+/day) Vital Signs Temperature 96.8 degrees Fahrenheit 01/01/20 25 Blood pressure systolic 137 mm Hg 01/01/20 25 Blood pressure diastolic 68 mm Hg 025 Heart Rate 70 /min 12/31/2024 Respiratory Rate 18 /min 12/31/2024 Height 68 in 12/31/2024 Weight 209.4 lbs 12/31/2024 BMI 31.84 kg/m2 12/31/2024 Oximetry 97 % 12/31/2024 Encounters Encounter Location Date Provider Diagnosis Pul[facility] [place] [address] [place] [address] 12/31/2024 Brandt Ang Moderate persistent asthma, uncomplicated J45.40 ; Adenocarcinoma of right lung C34.91 ; Obstructive sleep apnea G47.33 ; Restless leg syndrome G25.81 ; Peripheral eosinophilia D72.19 ; Diabetes mellitus type 2, controlled E11.9 ; 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 Voices some benefit, but not great. Prior cardiopulmonary exercise testing suggested deconditioning. CPET + RHC 04/27/2023 showed mild postcapillary pulmonary hypertension (mPAP 33mmHg, Wood 1.65). Interpretation: Dyspnea is associated with lobectomy + obesity/deconditio tyler. There really is not much else to do at this point; Fasenra too expensive. Continue Wixela. Suggested albuterol 15-30 minutes prior to activities. 12/31/2024 Adenocarcinoma of right lung (ICD-10 - C34.91) 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[facility]; Stage 1A3 (T1/N0/M0) LLL costophrenic angle nodule: -12/12/2024: 6mm -06/25/2024: 7mm -01/01/2024: 6mm -03/07/2022: 5mm Growth stalled on most recent CT chest? Given propensity of adenocarcinoma of slow growth, and having a prior history of adenocarcinoma, I strongly recommend this continue to be monitored closely. @ 6-7mm, it continues to remain below the threshold of PET (8mm). Ordering 6 month F/U chest CT to document stability vs. worsening. 12/31/2024 Obstructive sleep apnea (ICD-10 - G47.33) PSG 06/15/2022: AHI 30.6 Ogtd-ak-xfkz encounter performed with the patient to document continued need for PAP therapy. -DME: [facility] -PSG 06/15/2022; AHI 30.6-PAP titration 01/16/2023: CPAP [id number] -Compliance was reviewed from 11/30/2024 - 12/29/2024-Total days used: (100%)-Total of all days >4 hours of use 30 (100%)-Current mode & pressures: AirSense 11 AutoSet - CPAP 15cm F9A-Kakhppeh AHI: 3.4-Air leak 95th percentile: 0.3L/min-Mask/harn ess fitting: No issues today-Sleep quality: Better with CPAP use-Daytime hypersomnolence: Less with CPAP use-Recommendation s: Superb compliance. No complaints today. Continue CPAP @ current settings. Continue PAP @ HS/naps. Refill/renew/reord er supplies, CPAP as required. 12/31/2024 Restless leg syndrome (ICD-10 - G25.81) Tried and failed Mirapex (caused leg pain). Does not complain of this today. 12/31/2024 Peripheral eosinophilia (ICD-10 - D72.19) Prescribed Fasenra, could not afford it. 12/31/2024 Diabetes mellitus type 2, controlled (ICD-10 - E11.9) Steroids prescribed for this patient's underlying pulmonary disease can adversely affect blood glucose levels, inducing hyperglycemia and worsening underlying diabetes. The patient is encouraged to follow up with the primary care provider to create a plan to manage diabetes in this situation. 12/31/2024 [facility] (current) use of inhaled steroids (ICD-10 - Z79.51) Patient was counseled to rinse & gargle with water after inhaled corticosteroid use. 12/31/2024 History of tobacco abuse (ICD-10 - Z87.891) This patient does not meet current LDCT criteria (e.g. age, time from cessation, # pack-years). 12/31/2024 Obesity, unspecified (ICD-10 - E66.9) Patient's weight is inducing a restrictive pulmonary physiology. Weight loss indicated: Decrease calories, increase activity. 12/31/2024 Other Plan Of Treatment Medication Medication Name Sig Start Date Stop Date Notes Montelukast Sodium 10 MG 1 tablet Orally Once a day for 90 days Ventolin HFA 108 (90 Base) MCG/ACT 2 puffs as needed for SOB Inhalation Q4H for 90 days Fluticasone-Salmeterol 500-50 MCG/ACT 1 puff Inhalation Twice a day for 90 days May substitute with Wixela, Advair, or generic fluticasone/salmetero l - whichever is covered and cheapest for patient Treatment Notes Assessment Notes Moderate persistent asthma, uncomplicate d Prior treatment: Wixela, Trelegy & Breztri (ineffective); Fasenra (too expensive) He remains on Wixela. Voices some benefit, but not great. Prior cardiopulmonary exercise testing suggested deconditioning. CPET + RHC 04/27/2023 showed mild postcapillary pulmonary hypertension (mPAP 33mmHg, Wood 1.65). Interpretation: Dyspnea is associated with lobectomy + obesity/deconditioning. There really is not much else to do at this point; Fasenra too expensive. Continue Wixela. Suggested albuterol 15-30 minutes prior to activities. Adenocarcinoma of right lung LLL costophrenic angle nodule: -12/12/2024: 6mm -06/25/2024: 7mm -01/01/2024: 6mm -03/07/2022: 5mm Growth stalled on most recent CT chest? Given propensity of adenocarcinoma of slow growth, and having a prior history of adenocarcinoma, I strongly recommend this continue to be monitored closely. @ 6-7mm, it continues to remain below the threshold of PET (8mm). Ordering 6 month F/U chest CT to document stability vs. worsening. Obstructive sleep apnea Pnou-pb-qivy encounter performed with the patient to document continued need for PAP therapy. -DME: [facility] -PSG 06/15/2022; AHI 30.6-PAP titration 01/16/2023: CPAP [id number] -Compliance was reviewed from 11/30/2024 - 12/29/2024-Total days used: (100%)-Total of all days >4 hours of use (100%)-Current mode & pressures: AirSense 11 AutoSet - CPAP 15cm [id number]-Riyxbixs AHI: 3.4-Air leak 95th percentile: 0.3L/min-Mask/harness fitting: No issues today-Sleep quality: Better with CPAP use-Daytime hypersomnolence: Less with CPAP use-Recommendations: Superb compliance. No complaints today. Continue CPAP @ current settings. Continue PAP @ HS/naps. Refill/renew/reorder supplies, CPAP as required. Restless leg syndrome Tried and failed Mirapex (caused leg pain). Does not complain of this today. Peripheral eosinophilia Prescribed Fasenra, could not afford it. Diabetes mellitus type 2, controlled Steroids prescribed for this patient's underlying pulmonary disease can adversely affect blood glucose levels, inducing hyperglycemia and worsening underlying diabetes. The patient is encouraged to follow up with the primary care provider to create a plan to manage diabetes in this situation. 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 History of tobacco abuse This patient does not meet current LDCT criteria (e.g. age, time from cessation, # pack-years). Obesity, unspecified Patient's weight is inducing a restrictive pulmonary physiology. Weight loss indicated: Decrease calories, increase activity. Future Test Test Name Order Date CT Chest w/o contrast 06/14/2025 Next Appt Details Follow Up: 6 Months, Reason: Nodules, Asthma, THEODORE Procedure Notes * Category Sub-Category Detail Notes PFT Data: 03/03/2023 - [facility]- FEV1/FVC: 57%-FEV1: 63%-FVC: 83%-Bronchodilator response: None-RV: 91%-T%-DLCO: 62%06/02/2022-FEV1/FVC: 72%-FEV1: 58%-FVC: 58%-Bronchodilator response: None-RV: 87%-T%-DLCO: 57%-Flow-volume loop: Moderate obstruction10/07/2021-FEV1/FVC: 70%-FEV1: 66%-FVC: 74%-Bronchodilator response: None-RV: 76%-T%-DLCO: 59%01/08/2021-FEV1/FVC: 56%-FEV1: 80%-FVC: 80%-Bronchodilator response: Positive in FVC-RV: 106%-T%-DLCO: 90% Progress Notes * Bridger ROBLESDOB:[birth year] (79 yo M)Acc No.[id number]:12/31/2024 Follow Up Patient: Gely Bridger RAYGOZA Provider: Oz Paz DO :1945 A ge:79 Y S ex:Male Date:12/31/2024 Address:[address] [place], [place] [id number] Pcp:Tab Barfield, Check In:01:50 PM ESTCheck O ut:02:09 PM EST Subjective: * Chief Complaints: * 6 mos f/u abnormal chest CT/asthma * HPI: G eneral: Patient states he is doing about the same compared to last visit. Fasenra too expensive as well as Trelegy. He remains on Wixela/Advair and reports decent improvement in his breathing. He uses albuterol ~ 3 times a week after strenuous activity such as mowing. Rewviewed CT chest 12/12/2024 - the nodule we were following in [place] is unchanged @ 6mm (previously mentioned as 7mm). Also noted a previously unmentioned nodule @ 4mm, but the radiologist stated this was stable compared to the prior study. Reviewed PAP compliance. Superb compliance, reports no issues. MA Intake Comments:. Patient presents for a follow-up for Asthma. Patient recently had a CT Chest performed on 12/12/2024. Patient complains of SOB, Wheezing & Cough. Patient is using Advair daily. Patient reports rare albuterol use. Patient states he does not use his nebulizer as the machine/medication is too old. Patient wears his PAP at HS. Patient states the machine is still a pain. DME:[facility]. E pworth Sleepiness Scale: Dover Sleepiness Scale C susan of dozing while sitting and reading:?1 - Slight Chance C susan of dozing while watching TV: [...] traffic: 0 - Never T OTAL SCORE: 1 * ROS: G eneral/Constitutional: Fever or sweats d enies. C hange of appetite d enies. C hills d enies. W eight Change d enies. H EENT: Dry mouth d enies. S ore throat d enies. O ral Ulcers d enies. P ost Nasal Drip D enies. H oarseness D enies. C ardiovascular: Tachycardia d enies. C hest pain d enies. P alpitations d enies. R espiratory: Pleurisy D enies. D yspnea w ith exertion/activity. C ough d enies. H emoptysis d enies. W heezing d enies. G astrointestinal: Acid Reflux/GERD/Heartburn d enies. M usculoskeletal: Arthralgias/joint pain D enies. S kin: Rash d enies. N eurologic: Seizures d enies. T remor d enies. H ematology: Abnormal Bleeding d enies. P sychiatric: Anxiety d enies. * Active Problem List J45.40 Moderate persistent asthma, uncomplicated Modified On:06/27/2023W/U Status:confirmed Z79.51 [facility] (current) use of inhaled steroids Modified On:06/27/2023 Status:confirmed G25.81 Restless leg syndrom e Modified On:06/27/2023 Status:confirmed G47.33 Obstructive sleep ap beth Modified On:06/27/2023 Status:confirmed E11.9 Diabetes mellitus ty pe 2, controlled Modified On:06/27/2023 Status:confirmed R91.8 Multiple pulmonary n odules Modified On:01/03/2024U Status:confirmed Z87.891 History of tobacco a buse Modified On:06/27/2023 Status:confirmed C34.91 Adenocarcinoma of ri ght lung Modified On:06/27/2023 Status:confirmed D72.19 Peripheral eosinophi neha Modified On:06/27/2023 Status:confirmed I27.29 Other secondary pulm onary hypertension Modified On:06/27/2023 Status:confirmed E66.9 Obesity, unspecified Modified On:06/27/2023 Status:confirmed Z68.31 Body mass index [BMI ] 31.0-31.9, adult Modified On:12/27/2023 Status:confirmed * Medical History: * Surgical History: C holecystectomy Sigmoidoscopy 07/15/2021obectomy: lung-Upper Right Lobe 02/19/2021GD Open reduction, internal fixation (ORIF)-Right Calcaneus Cardiac Cath with CPET- [facility] 04/27/2023olonoscopy * Hospitalization/Major Diagno stic Procedure: D enies [...] you smoke marijuana?: Denies. * Medications: T akingamLODIPine Besylate 10 MG Tablet 1 tablet Orally Once a day Escitalopram Oxalate 10 MG Tablet 1 tablet Orally Once a day Fluticasone-Salmeterol 500-50 MCG/ACT Aerosol Powder Breath Activated [...] as needed Inhalation every 4 hrs Taking amLODIPine Besylate 10 MG Tablet [...] puffs as needed Inhalation every 4 hrs Not-Taking/PRNAlbuterol Sulfate (2.5 MG/3ML) 0.083% Nebulization Solution 3 mL as needed Inhalation every 6 hrs Medication List reviewed and reconciled with the patientNot-Taking/PRN Albuterol Sulfate (2.5 MG/3ML) 0.083% Nebulization Solution 3 mL as needed Inhalation every 6 hrs Medication List reviewed and reconciled with the patient * Allergies: P enicillin G Potassium (penicillin): AllergyMirapex: Leg pain - Side Effects - Criticality Lowno[Allergies Verified] Objective: * Vitals: W t:209.4lbs, Ht: 68 in, BP:sittin/68mm Hg, Temp:Forehead:96.8F, HR:70/min, RR:18/min, BMI:31.84Index, Oxygen sat %:Room Air:97%, Ht-cm: 172.72 cm, Wt-k.98 kg. * Examination: E xam: GENERAL APPEARANCE: I n no acute distress. Skin N o rash. Mouth P ink and moist. No candidiasis. Oropharynx/Tongue M allampati Class III. Trachea M idline. Chest N ormal. Respiratory Normal M ovements, E ffort N ormal. Auscultation B reath sounds are diminished. Faint expiratory wheeze on forced exhalation. Cardiac R egular rate and rhythm. Gastrointestinal [...] Treatment: 2. M oderate persistent asthma, uncomplicated Refill Fluticasone-Salmeterol Aerosol Powder Breath Activated, 500-50 MCG/ACT, 1 puff, Inhalation, Twice a day Rinse after use - Dispense #3 inhalers, 90 days, 3 each, Refills 4, Notes to Pharmacist: May substitute with Wixela, Advair, or generic fluticasone/salmeterol - whichever is covered and cheapest for patient; R efill Ventolin HFA Aerosol Solution, 108 (90 Base) MCG/ACT, 2 puffs as needed for SOB, Inhalation, Q4H Dispense #3 inhalers, 90 days, 3 each, Refills 4; R efill Montelukast Sodium Tablet, 10 MG, 1 tablet, Orally, Once a day, 90 days, 90 Tablet, Refills 4. Notes: Prior treatment: Wixela, Trelegy & Breztri (ineffective); Fasenra (too expensive) He remains on Wixela. Voices some benefit, but not great. Prior cardiopulmonary exercise testing suggested deconditioning. CPET + RHC 04/27/2023 showed mild postcapillary pulmonary hypertension (mPAP 33mmHg, Wood 1.65). Interpretation: Dyspnea is associated with lobectomy + obesity/deconditioning. There really is not much else to do at this point; Fasenra too expensive. Continue Wixela. Suggested albuterol 15-30 minutes prior to activities. 3. O bstructive sleep apnea Notes: Uvag-yf-emvm encounter performed with the patient to document continued need for PAP therapy. -DME: [facility] -PSG 06/15/2022; AHI 30.6-PAP titration 01/16/2023: CPAP [id number] -Compliance was reviewed from 11/30/2024 - 12/29/2024-Total days used: (100%)-Total of all days >4 hours of use (100%)-Current mode & pressures: AirSense 11 AutoSet - CPAP 15cm [id number] AHI: 3.4-Air leak 95th percentile: 0.3L/min-Mask/harness fitting: No issues today-Sleep quality: Better with CPAP use-Daytime hypersomnolence: Less with CPAP use-Recommendations: Superb compliance. No complaints today. Continue CPAP @ current settings. Continue PAP @ HS/naps. Refill/renew/reorder supplies, CPAP as required. 4. R estless leg syndrome Notes: Tried and failed Mirapex (caused leg pain). Does not complain of this today. 5. P eripheral eosinophilia Notes: Prescribed Fasenra, could not afford it. 6. D iabetes mellitus type 2, controlled [...] Weight loss indicated: Decrease calories, increase activity. * Procedures: P FT: Data: 03/03/2023 - [...] had COVID Vaccination? COVID Vaccination Y es 07/03/2024 Immunization Status: P neumovacc P revnar 20- 04/06/2022. I nfluenza 0 04/23/2024. Screenings/Counseling: F ALL RISK SCREENING Fall Risk Assessment: N o falls in the past year Are you afraid of falling? N o T OBACCO ACTION PLAN Patient counselled on the dangers of tobacco use and urged to quit. 0 12/31/2024 Former Educational materials on smoking cessation provided 0 12/31/2024 Former B MT ACTION PLAN Above Normal BMI Follow-up D ietary management education, guidance, and counseling R SV-06/30/2023. * Follow Up: 6 Months (Reason: Nodules, Asthma, THEODORE) * * Sign off status: Completed Visit Status: C HK (Check Out) true * Provider: Oz Paz DO Date: 12/31/2024 Generated for Mara hernández/Christina/Krystleitting on: 0 04/24/2025 03:59 PM EDT History and Physical Notes * HPI (History of Present Illness) Category Sub-Category Detail Notes Category Not es General Patient present s for a follow-up for Asthma. Patient recently had a CT Chest performed on 12/12/2024. Patient complains of SOB, Wheezing & Cough. Patient is using Advair daily. Patient reports rare albuterol use. Patient states he does not use his nebulizer as the machine/medicatio n is too old. Patient wears his PAP at HS. Patient states the machine is still a pain. DME:[facility]. Dover Sleepiness Scale [place] Sleepiness Scale Chance of dozing while sitting and reading:: 1 - Slight Chance Chance of dozing while watching TV:: 0 [...] in traffic:: 0 - Never TOTAL SCORE:: 1 Examination Category Sub-Category Detail Notes Category Not es Exam GENERAL APPEARANCE: In no acute distress Skin No rash Mouth Ocean and moist. No c andidiasis Trachea Midline Chest Normal Respiratory Normal Movements, Ef fort Normal Auscultation Breath sounds are di minished. Faint expiratory wheeze on forced exhalation Percussion Egophony Bronchophony Fremitus Whispered pectoriloquy Cardiac Regular rate and rhy thm Gastrointestinal Normal Vascular No edema Musculoskeletal Normal posture Neurological Focal, intact Psychiatric Alert and oriented x 3 Mentation/Cognition Normal Oropharynx/Tongue Mallampati Class III
--- OUTSIDE RECORDS SUMMARY | 2025-03-24 10:29 | XMS_ITS ---
Author Organization [facility] in [place] Address [address] [place] [address] Care Team Providers Care Audio Visual Secretary Name Role Phone Tab Barfield DO Primary Care Provider Brandt Aquino [phone] REASON FOR VISIT Letter/Appointment Encounters Encounter Location Date Provider Diagnosis [facility] [place] [address] [place] [address] 03/24/2025 Brandt Paz Plan Of Treatment No Information Progress Notes * Bridger ROBLESDOB:[birth year] (79 yo M)Acc No.[id number]:03/24/2025 Patient: Gely Bridger RAYGOZA :1945 A ge:79 Y S ex:Male Address:[address] [place] [address], [id number] * Addendum: * true * Date: Generated for Harjeeti edgar/Fashawng/eTransmitting on: 0 04/24/2025 04:01 PM EDT
--- OUTSIDE RECORDS SUMMARY | 2025-04-22 14:45 | XMS_ITS | Encounter Summary ---
Author Organization [facility] Address [address] [place] [address] Care Team Providers Care Record Tabulating Clerk Name Role Phone Tab Barfield DO Primary Care Provider [phone] AngBrandt underwood DO Unavailable [phone] Source Comments In the event this information is protected by the Federal Confidentiality of Alcohol and Drug AbusePatient Records regulations: The Federal rules restrict any use of the information to criminally investigate or prosecute any alcohol or drug abuse patient.[facility] Reason for Referral * MRI/CT (Routine) - Authorized Specialty Diagnoses / Procedures Referred By Contac t Referred To Contact CT IMAGING Diagnoses Multiple lung nodules History of lung cancer Procedures CT CHEST WO IVCON DIAGNOSTIC COMPUTED TOMOGRAPHY THORAX W/[place] [address] [place] [address] Phone: tel: fax: [place] [address] Referral ID Status Reason Start Date Expiration Date Visits Requested Visits Authorized [id number] Authorized Auto-Generat ed Referral 06/14/2025 05/22/2026 1 1 * Outpatient Procedure (Routine) - Authorized Specialty Diagnoses / Procedures Referred By Contac t Referred To [facility] [place] Diagnoses Chronic obstructive pulmonary disease, unspecified COPD type (HCC) Dyspnea on exertion Procedures OXIMETRY WITH AMBULATION NONINVASIVE EAR/PULSE OXIM[place] [address] [place] [address] Phone: tel: fax: [facility] [address] [place] [address] Referral ID Status Reason Start Date Expiration Date Visits Requested Visits Authorized [id number] Authorized Auto-Generat ed Referral 04/22/2025 05/22/2026 1 1 * Outpatient Procedure (Routine) - Authorized Specialty Diagnoses / Procedures Referred By Contac t Referred To [facility] [place] Diagnoses Chronic obstructive pulmonary disease, unspecified COPD type (HCC) Procedures SPIROMETRY WITH DILATOR IF OBSTRUCTED BRNCDILAT RSPSE SPMTRY PRE&[place] [address] [place] [address] Phone: tel: fax: [facility] [address] [address] Referral ID Status Reason Start Date Expiration Date Visits Requested Visits Authorized [id number] Authorized Auto-Generat ed Referral 04/22/2025 05/22/2026 1 1 * Outpatient Procedure (Routine) - New Request Specialty Diagnoses / Procedures Referred By Contac t Referred To Contact [facility] Diagnoses Dyspnea on exertion Procedures ECHO ECHO TTHRC R-T 2D W/WOM-MODE COMPL SPEC&[place] [address] [place] [address] Phone: tel: fax: [facility] [address] [address] Referral ID Status Reason Start Date Expiration Date Visits Requested Visits Authorized [id number] New Request Auto-Generat ed Referral 04/22/2025 04/22/2026 1 1 Reason for Visit * Reason Comments Consult * Consult, Test, Treat (Routine) - Closed Specialty Diagnoses / Procedures Referred By Andrea t Referred To Contact Pulmonary and Critical Care Medicine Diagnoses Superior pulmonary sulcus syndrome, right (HCC) Mucopurulent chronic bronchitis (HCC) THEODORE (obstructive sleep apnea) Procedures OFFICE/OUTPATIENT [facility] 60 MINUTES Tab Barfield, DO [address] [place] [address] [place] [address] Phone: tel: fax: Referral ID Status Reason Start Date Expiration Date V isits Requested Visits Authorized [id number] Closed PCP Requested Referral 04/10/2025 04/10/2026 1 1 Encounter Details Date Type Department Care Team ([facility] st Contact Info) Description 04/22/2025 2:45 PM EDT Office Visit PULMONARY [address] [place] [address] [place] [address] [place] [address] Chronic obstructive pulmonary disease, unspecified COPD type (HCC) (Primary Dx); Mucopurulent chronic bronchitis (HCC); Dyspnea on exertion; Multiple lung nodules; History of lung cancer; THEODORE (obstructive sleep apnea) Social History Tobacco Use Types Packs/Day Years [...] is lower risk 7 03/03/2023 Data from: https://www.neighborhoodatlas.medicine.[facility].edu/. Last address used for calculation [address] 03/03/2023 Sex and Gender Information Value Date [...] Sign Reading Time Taken Comments Blood Pressure 123/68 04/22/2025 2:54 PM EDT Pulse 71 04/22/2025 2:54 PM EDT Temperature 36.3 C (97.4 F) 04/22/2025 2:54 PM EDT Respiratory Rate 16 04/22/2025 2:54 PM EDT Oxygen Saturation 98% 04/22/2025 2:54 PM EDT Inhaled Oxygen Concentration - - Weight 95.2 kg (209 lb 14.1 oz) 04/22/2025 2:54 PM EDT Height - - Body Mass Index 32.56 03/03/2023 2:00 PM EDT documented in this encounter Patient Instructions * Patient Instructions* Mary Berman MD - 04/22/2025 3:31 PM EDT We discussed your shortness of breath and lung health: - You have a history of lung cancer with the removal of the top right lobe of your lung approximately four years ago, as well as diminished lung capacity and COPD. These factors contribute to your shortness of breath. - You are currently using Advair (fluticasone/salmeterol) for your breathing. We discussed switching back to Trelegy, as it was the most effective inhaler for you in the past. I will send a prescription for Trelegy to your pharmacy and work on obtaining prior authorization if needed. Please call ifthe cost is too high when you go to shrimp picker the prescription at your pharmacy. - Continue using your rescue inhaler (albuterol) as needed, especially 30 minutes before activitieslike mowing the lawn. This can help reduce shortness of breath during exertion. - Pulmonary rehabilitation may help improve your breathing and teach you techniques to manage your symptoms. I will provide an order for pulmonary rehab. Please check if there is a program available near you. If you would like to come to [place] or go to [place] for this, please let me know if you need a new order. - Avoid exposure to poor air quality, heat, and humidity, as these can worsen your symptoms. Use air conditioning when needed to help with breathing. We discussed your follow-up care for lung nodules: - You are due for a follow-up CT scan of your lungs in June to monitor the small nodules. I will provide an order for this test. Please schedule it at your convenience. We discussed your allergies and sinus symptoms: - Continue taking your daily allergy medication (loratadine or cetirizine) as needed. Rotating between these medications, as you have been doing, is fine. - Continue taking montelukast (Singulair) nightly as prescribed. We discussed your heart health and swelling in your ankles: - You have mild swelling in both ankles. I recommend an echocardiogram (ultrasound of the heart) toevaluate your heart function. I will provide an order for this test. Please schedule it at your convenience. - You may also benefit from a follow-up with a insurance follow up representative. Please discuss this with your primary care physician at your next visit. We discussed additional testing: - It has been two years since your last pulmonary function test and walk test. I will provide orders for these tests to reassess your lung function and oxygen levels. Please schedule these tests whenconvenient. Please follow up with me in about 3 months after completing your tests or sooner if your symptoms worsen. documented in this encounter Progress Notes * Mary Berman MD - 04/22/2025 2:45 PM EDT NEW PATIENT OFFICE VISIT Bridger Robles is a 79 year old male who presents for evaluation of chronic bronchitis/COPD. Bridger has a history of lung cancer s/p RUL lobectomy about 3 years ago as well as asthma/COPD who presents with chronic dyspnea. He reports chronic dyspnea that has been ongoing for several years. He states he had mild asthma asa child, never used inhalers for it though. Approximately 4 years ago, he underwent a partial lung resection of the right upper lobe due to lung cancer. Since the surgery, he has been on various inhalers, including Breztri, Trelegy, and Breo, but reports no significant improvement in his symptoms with any of these medications. Although also reports he was changing inhalers often so isn't fully sure if he knew what was helping or not. He iscurrently using Advair and a rescue inhaler, which he uses more frequently now, especially before activities like mowing the lawn. He notes that the rescue inhaler provides some relief, but not profound. He feels overall Trelegy worked best for him. He reports occasional wheezing, which is more noticeable to his , and a rare cough that is moreprominent in the mornings, producing white phlegm. He has a history of hay fever and takes allergy medications, including loratadine and cetirizine, as well as montelukast daily. He denies frequent bronchitis or respiratory infections. He cannot recall every taking prednisone for an exacerbation or bronchitis. Bridger has a significant smoking history, having smoked from the age of 17 to approximately 41 years old, but he quit over 20 years ago. He has not been on oxygen therapy since his surgery and reports that his home pulse oximeter readings are consistently in the 90s. Bridger also has a history of sleep apnea and uses a CPAP machine regularly. He reports that he is due for a follow-up CT scan in June, as his previous agricultural services director was monitoring small 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 PMH, FAMH, SOCIAL History & Allergies were verified and updated, and medications were reconciled with the patient at this visit. PAST MEDICAL HISTORY Diagnosis Date Depression Diabetes (HCC) Hypercholesterolemia Hypertension : PAST SURGICAL HISTORY Procedure Laterality Date F COLONOSCOPY WITH POLYPECTOMY OTHER SURGICAL HISTORY (PLEASE SPECIFY) HX Right ankle surgery due to a fall : FAMILY HISTORY Problem Relation Age of Onset Cancer Maternal Uncle Prostate cancer : Allergies: ALLERGIES Allergen Reactions Penicillins Swelling Current Medications: Current Outpatient Medications Medication Sig Dispense Refill CONTOUR TEST STRIPS test strip use 1 strip to check glucose once daily tamsulosin (FLOMAX) 0.4 mg montelukast (SINGULAIR) 10 mg tablet albuterol HFA (PROVENTIL HFA, VENTOLIN HFA) 90 mcg/actuation inhaler Inhale 2 Puffs as instructed every 6 hours as needed. fluticasone-salmeterol (ADVAIR, WIXELA) 250-50 mcg/dose inhaler INHALE 1 DOSE BY MOUTH TWICE DAILY escitalopram oxalate (LEXAPRO) 10 mg tablet Take 10 mg by mouth daily at bedtime. pravastatin (PRAVACHOL) 80 mg tablet losartan (COZAAR) 100 mg tablet amLODIPine (NORVASC) 5 mg tablet ahyjtchusbl-bxahhxerx-zjkegbug (TRELEGY ELLIPTA) 100-62.5-25 mcg inhalation powder Inhale 1 puff asinstructed once daily. 1 each 11 No current facility-administered medications for this visit. PHYSICAL EXAM: BP 123/68 Pulse 71 Temp (Src) 97.4 (Temporal) Resp 16 Wt 209 lb 14.1 oz (95.2kg) SpO2 98% General appearance: well appearing, in no acute distress, alert Skin: skin color normal, no rashes or lesions Eyes: Anicteric sclera. Neck: Supple, no adenopathy Respiratory: lungs clear to auscultation, no wheezing or rhonchi, normal work of breathing, fair air movement Cardiovascular: S1, S2. RRR without murmur. 1-2+ bilateral lower extremity edema. Musculoskeletal: Extremities normal. No digital clubbing. Neuro/PSY: Normal mood and affect. Data Review: I personally reviewed, interpreted, and discussed the labs, PFTs and radiographs with the patient as noted below: Labs: 09/2024 CMP normal, H&H normal, AEC = 320 2022 AB.34/33/[address] 12/2024 - RUL lobectomy, stable LLL nodules up to 6mm in size PFT 2022 indicates moderate mixed obstructive and restrictive ventilatory defect with mild GTD 6MWT 2022: 419m completed, O2 sat winter 94% Echocardiogram 2022: Normal biventricular systolic function. RV and RA size normal. No significant valvular disease. RVSP unable to be estimated. Assessment/Plan: 1) COPD with moderately diminished FEV1 He will continue to abstain from smoking Repeat PFTs and walk test ordered today Restart LAMA inhaler, will change advair back to Trelegy Continue albuterol prn We discussed pulmonary rehab today; he is concerned that there is not a program close to home. A paper order for rehab was provided and he will inquire with [facility] about this. I recommend staying up to date on preventive vaccinations - pneumonia vaccinations, annual influenza vaccinations, and covid boosters. He should also receive RSV vaccination. I recommend masking when in public during cold and flu season. 2) Hx of lung cancer s/p resection in [place] 3-[address] ordered today for follow up. 3) Lung nodules. Follow up as above with CT in June. 4) Hx of tobacco use. He will continue to abstain. 5) Chronic dyspnea on exertion. Due to COPD as well as RVD with prior lobectomy. He has edema present on exam as well; I recommend additional cardiac evaluation. Echo ordered today. He will follow upwith PCP as well about this. The above plan was discussed with the patient and all questions were answered. I will see Mrs. Robles for follow-up in 3 months or sooner if needed. Mary Berman MD Pulmonary and Critical Care Medicine [facility] Recording using [employer] software for draft documentation of the visit was discussed with the patient/authorized financial foundations representative; all questions welcomed and answered. Patient/authorized financial foundations representative agreed to proceed documented in this encounter Plan of Treatment Upcoming Encounters Date Type Department Care Team (Late st Contact Info) Description 07/24/2025 2:15 PM EST Appointment Radiology Pet CT [address] [facility] [place] [address] CT CHEST WO IV 08/01/2025 1:15 PM EST Procedure PULMONARY [facility] [place] [address] Dx: Dyspnea on exertion [R06.09] 08/01/2025 1:45 PM EST Procedure PULMONARY [facility] [place] [address] SPIROMETRY WITH DILATOR IF OBSTRUCTED [[id number]] 08/01/2025 2:15 PM EST Office Visit PULMONARY [facility] [place] [address] [place] [address] [place] [address] 3 month follow up 04/03/2026 3:00 PM EDT Office Visit [facility] Laboratory [address] [place] [address] PSA Lab 04/10/2026 2:00 PM EDT Office Visit Radiation Oncology [address] [place] [address] Gabe Banerjee MD [address] [place] [address] 2 yr rv Scheduled Orders Name Type Priority Associated Diagnoses Orde r Schedule ECHO Cardiology Routine Dyspnea on exertion 1 Occurrences starting 04/22/2025 until 04/22/2026 SPIROMETRY WITH DILATOR IF OBSTRUCTED PFT Routine Chronic obstructive pulmonary disease, unspecified COPD type (HCC) 1 Occurrences starting 04/22/2025 until 05/22/2026 OXIMETRY WITH AMBULATION PFT Routine Chronic obstructive pulmonary disease, unspecified COPD type (HCC) Dyspnea on exertion 1 Occurrences starting 04/22/2025 until 05/22/2026 CONSULT PULMONARY REHABILITATION PROGRAM Procedures Routine Chronic obstructive pulmonary disease, unspecified COPD type (HCC) Ordered: 04/22/2025 CT CHEST WO IVCON Radiology Routine Multiple lung nodules History of lung cancer Expected: 06/14/2025, Expires: 05/22/2026 documented as of this encounter Visit Diagnoses Diagnosis Chronic obstructive pulmonary disease, unspecified COPD type (HCC)- Primary Mucopurulent chronic bronchitis (HCC) Mucopurulent chronic bronchitis Dyspnea on exertion Other dyspnea and respiratory abnormality Multiple lung nodules Other nonspecific abnormal finding of lung field History of lung cancer Personal history of malignant neoplasm of bronchus and lung THEODORE (obstructive sleep apnea) Obstructive sleep apnea (adult) (pediatric) documented in this encounter Care Teams Record Tabulating Clerk Relationship Specialty Start Date End Date Tab Barfield DO [address] [place] [address] PCP - General Internal Medicine 11/23/17 Brandt Paz DO [address] [place] [address] Pulmonary Disease 03/15/23 documented as of this encounter
--- OUTSIDE RECORDS SUMMARY | 2025-04-24 16:00 | XMS_ITS | Clinical Summary ---
Author Organization [facility] Address [address] [place] [address] Care Team Providers Care Banking Services Advisor Name Role Phone Unavailable Primary Care Provider Unavailabl e Allergies Active Allergy Reactions Criticality Noted Date Comments Penicillins Rash,Swelling,Unknown Low 12/08/2017 Medications amLODIPine (Norvasc) 10 MG tablet 5 Active pravastatin (Pravachol) 80 MG tablet Take 80 mg by mouth Daily Active metFORMIN (Glucophage) 500 MG tablet 5 Active losartan (Cozaar) 100 MG tablet 5 Active montelukast (Singulair) 10 MG tablet Take 10 mg by mouth Daily Active escitalopram (Lexapro) 10 MG tablet Take 10 mg by mouth at bedtime Active tamsulosin (Flomax) 0.4 MG 24 hr capsule Take 0.4 mg by mouth in the morning and 0.4 mg before bedtime. Active Multiple Vitamin (Multi-Vitamin) tablet Take 1 tablet by mouth in the morning. Active Fluticasone-Salme terol 500-50 MCG/ACT aerosol powder INHALE 1 DOSE BY MOUTH TWICE DAILY FOR 30 DAYS 5 Active betamethasone dipropionate 0.05 % creamIndications: Prurigo nodularis Apply to affected areas, up to twice a day when flared, do not use one the face, groin, or underarms, 30 day supply 15 g 11 5 Active Active Problems No known active problems Encounters Date Type Department Care Team Description 03/25/2025 3:05 PM EDT Office Visit [facility] [address] [place] [address] Lupis Campbell MD Prurigo nodularis (Primary Dx); Inflamed seborrheic keratosis 03/25/2025 Bamboo flowsheet [facility] [address] [place] [address] Lupis Campbell MD 03/25/2025 Travel from Last 3 Months Social History Tobacco Use Types Packs/Day Years Used Date Smoking Tobacco: Unknown Tobacco Cessation:Counseling Given: Not Answered Sex and Gender Information Value Date Recorded Sex Assigned at Not on file Legal Sex Male 10:15 PM EDT Gender Identity Not on file Sexual Orientation Not on file Plan of Treatment Health Maintenance Due Date Last Done Comments Influenza Vaccine (#1) 2025 4, 05/06/2022, 05/05/2021, Additional history exists Pneumococcal Vaccine: 65+ Years Completed 2 Insurance [employer]
--- OUTSIDE RECORDS SUMMARY | 2025-04-24 16:00 | XMS_ITS | Encounter Summary ---
Author Organization [facility] Address [id number] [address] [place] [address] Care Team Providers Care Cash Control Specialist Name Role Phone Tab Barfield DO Primary Care Provider Encounter Details Date Type Department Care Team (Late st Contact Info) Description 09/22/2021 [facility] [address] [address] Leatha Friend RN Social History Tobacco Use Types Packs/Day Years Used Date Smoking Tobacco: Former Cigarettes 2 39 1 962 - 2000 Smokeless Tobacco: Never Alcohol Use Standard Drinks/Week Comments Yes 0 (1 standard drink = 0.6 oz pur e alcohol) 3 drinks 2 times per week Sex and Gender Information Value Date Recorded Sex Assigned at Male 06/09/2021 12:35 PM EDT Legal Sex Male 10:18 AM EDT Gender Identity Male 06/09/2021 12:35 PM EDT Sexual Orientation Not on file documented as of this encounter Miscellaneous Notes * Telephone Encounter - Leatha Friend RN - 09/22/2021 9:41 AM EST Did he move to [place] or there for winter He is back on overdue list? * Telephone Encounter - Dee Ball LPN - 09/22/2021 9:41 AM EST Just there for the winter per Dr Garcia's last note. documented in this encounter Plan of Treatment Not on file documented as of this encounter Goals Goal Patient Goal Type Associated Problems Recent Progress Patient-Stated? Author <enter goal here> General Yes Bia Mena LSW Note: Evaluation of progress towards goal: plan home with support. documented as of this encounter Visit Diagnoses Not on filedocumented in this encounter Care Teams Cash Control Specialist Relationship Specialty Start Date End Date Tab Barfield DO [address] [place] [address] PCP - General Internal Medicine 12/15/20 documented as of this encounter
--- OUTSIDE RECORDS SUMMARY | 2025-04-24 16:00 | XMS_ITS | Encounter Summary ---
Author Organization [facility] Address [id number] [address] [place] [address] Care Team Providers Care Sleeper Cutter Name Role Phone LicoTab Primary Care Provider [phone] Encounter Details Date Type Department Care Team (Late st Contact Info) Description 10/26/2021 Orders Only [facility] Pulmonary/Sleep Medicine [address] [place] [address] Ref Prov, [place] [address] Social History Tobacco Use Types Packs/Day Years Used Date Smoking Tobacco: Former Cigarettes 2 39 1 962 - 2001 Smokeless Tobacco: Never Alcohol Use Standard Drinks/Week Comments Yes 0 (1 standard drink = 0.6 oz pur e alcohol) 3 drinks 2 times per week Sex and Gender Information Value Date Recorded Sex Assigned at Male 06/09/2021 12:35 PM EDT Legal Sex Male 10:18 AM EDT Gender Identity Male 06/09/2021 12:35 PM EDT Sexual Orientation Not on file documented as of this encounter Plan of Treatment Not on file documented as of this encounter Goals Goal Patient Goal Type Associated Problems Recent Progress Patient-Stated? Author <enter goal here> General Yes Bia Mena LSW Note: Evaluation of progress towards goal: plan home with support. documented as of this encounter Procedures Procedure Name Priority Date/Time Associated Diagnosis Comments PULMONARY FUNCTION TEST Routine 10/07/2021 CT CHEST WO CONT Routine 09/23/2021 documented in this encounter Results * Pulmonary function test (10/07/2021) us Not In System Ref Prov PFT ORDERABLES Final Res ult MANUALLY TRANSCRIBED RESULTS * CT chest without contrast (09/23/2021) Anatomical Region Laterality Modality Body, Lung, Chest, Body Covera N/A C omputed Tomography us Not In System Ref Prov IMG CT ORDERABLES Edited Result - Final documented in this encounter Visit Diagnoses Not on filedocumented in this encounter Care Teams Sleeper Cutter Relationship Specialty Start Date End Date Tab Barfield DO [address] [place] [address] PCP - General Internal Medicine 12/15/20 documented as of this encounter
--- OUTSIDE RECORDS SUMMARY | 2025-04-24 16:00 | XMS_ITS | Encounter Summary ---
Author Organization [facility] Address [id number] [address] [place] [address] Care Team Providers Care Aircraft Armorer Name Role Phone Tab Barfield DO Primary Care Provider [phone] Encounter Details Date Type Department Care Team (Late st Contact Info) Description 12/22/2020 Orders Only [facility] - Juan Callahan [place] [address] [place] [address] Ref Prov, [place] [address] Social History Tobacco Use Types Packs/Day Years Used Date Smoking Tobacco: Never Assessed Sex and Gender Information Value Date Recorded Sex Assigned at Male 06/09/2021 12:35 PM EDT Legal Sex Male 10:18 AM EDT Gender Identity Male 06/09/2021 12:35 PM EDT Sexual Orientation Not on file COVID-19 Exposure Response Date Recorded In the last month, have you been in contact with someone who was confirmed or suspected to have Coronavirus / COVID-19? No / Unsure 12/17/2020 1:36 PM EDT documented as of this encounter Plan of Treatment Not on file documented as of this encounter Procedures Procedure Name Priority Date/Time Associated Diagnosis Comments CT CHEST WO CONT Routine 11/30/2020 CT CHEST WO CONT Routine 06/03/[address] SKULL TO THIGH Routine 03/09/2020 CT CHEST W CONT Routine 02/14/2020 documented in this encounter Results * CT chest without contrast (11/30/2020) Anatomical Region Laterality Modality Body, Lung, Chest, Body Covera N/A C omputed Tomography us Not In System Ref Prov IMG CT ORDERABLES Final R esult * CT chest without contrast (06/03/2020) Anatomical Region Laterality Modality Body, Lung, Chest, Body Covera N/A C omputed Tomography us Not In System Ref Prov IMG CT ORDERABLES Final R esult * PET CT skull to thigh (03/09/2020) Anatomical Region Laterality Modality Nuc Med N/A Positron Emissio n Tomography (PET) us Not In System Ref Prov IMG PET ORDERABLES Final Result * CT chest with contrast (02/14/2020) Anatomical Region Laterality Modality Body, Lung, Chest, Body Covera N/A C omputed Tomography us Not In System Ref Prov IMG CT ORDERABLES Final R esult documented in this encounter Visit Diagnoses Not on filedocumented in this encounter Care Teams Aircraft Armorer Relationship Specialty Start Date End Date Tab Barfield DO [address] [place] [address] PCP - General Internal Medicine 12/15/20 documented as of this encounter
--- OUTSIDE RECORDS SUMMARY | 2025-04-24 16:00 | XMS_ITS ---
Author Organization [facility] Address [address] [place], [place] [id number] Care Team Providers Care Salesperson Hosiery Name Role Phone Tab Barfield DO Primary Care Provider [phone] AngBrandt DO Unavailable [phone] Active Problems Problem Noted Date Diagnosed Date Prostate cancer 12/19/2017 Current Treatment and Therapy Plans No current plan information found. Past Treatment and Therapy Plans NON-CHEMO 1 Plan Name Start Date Discontinue Date Treatment Medications Discontinue Reason Plan Provider Cycles LEUPROLIDE 45 D1 - Q175D 8 02/24/2020 leuprolide acetate (6 month) (LUPRON) Other Gabe Banerjee MD 2 of 2 cycles started Treatment Summaries Prostate cancer (HCC)* Treatment Summary and Survivorship Care Plan for Prostate Cancer Provided by: Peggy Johnson APRN.CNP General Information Patient Name: Bridger Robles Patient : 1945 Patient phone: Email: [email or web address] [email or web address] Primary Care Provider: Tab Barfield Urologic Surgeon: Dr. Sebastien Ramirez Radiation Oncologist: Dr. Gabe Banerjee Other Providers: Peggy Johnson APRN.CNP Treatment Summary Diagnosis Cancer Type: Adenocarcinoma of the Prostate Location: Left lateral apex, left apex, right apex, right lateral base, right lateral apex 5 of 14 cores involving both lobes Diagnosis Date (year): November 13, 2017 Histology Subtype: Prostate Cancer Stage:IIIA; [id number] [place] Score: 4+4= 8 PSA at Diagnosis: 5.7 Clinical Trial: No Treatment Completed Surgery: Yes Surgery Date(s) (year): November 13, 2017 Surgical procedure/location/findings: Transrectal ultrasound-guided biopsy; Left lateral apex, leftapex, right apex, right lateral base, right lateral apex; Adenocarcinoma of the Prostate External beam radiation: Yes Prostate/Seminal Vesical: Yes: End Date (year): March 30, 2018 ( January 29, 2018 through March 30, 2018) DELIVERED DOSE: Area: Prostate/Seminal Vesicles 7,920 cGy in 44 fractions, 2 Arcs, VMAT/IMRT, 6MV with daily CBCT. TOTAL: 7,920 cGy in 44 fractions with neoadjuvant/concurrent/adjuvant ADT (Lupron) Brachytherapy to prostate: No Systemic Therapy (chemotherapy, hormonal therapy, other): Yes Name of Agents Used: Lupron (or similar LHRH agonist): Ongoing Received December 29, 2017; July 02, 2018 Received last injection 01/03/2019 Presistent symptoms or side effects at completion of treatment: No Follow-up Care Plan Schedule of clinical visits Coordinating Provider When/How often Dr. Gabe Banerjee Yearly- Next appointment March 2019 Dr. Sebastien Ramirez September 2018 Cancer surveillance or other recommended related tests Coordinating Provider Test How Often Dr. Gabe Banerjee PSA (Prostate Specific Antigen) Yearly- Next appointment March 2019 Dr. Sebastien Ramirez PSA (Prostate Specific Antigen) September 2018 Please continue to see your primary care provider for all general health care recommended for a (man) (women) your age, including cancer screening tests. Any symptoms should be brought to the attention of your provider: 1. Anything that represents a brand new symptom; 2. Anything that represents a persistent symptom; 3. Anything you are worried about that might be related to the cancer coming back. Possible late- and long-term effects that someone with this type of cancer and treatment may experience: Decreased sex drive, Enlarging breast tissue, Erectile dysfunction, Fatigue, Hair Loss, Hot flashes, Incontinence, Increased body fat, Loss of muscle mass, Metabolic syndrome (increased blood pressure, blood sugar, cholesterol), Mood swings, Osteoporosis, Painful urination, Rectal pain, Shorten ing of the penis, Skin irritation or darkening, Sterility, Tirdness, Trouble voiding or passing uring (urinary retention) and Urinary frequency Cancer survivors may experience issues with the areas listed below. If you have any concerns in these or other areas, please speak with your doctors or nurses to find out how you can get help with them: anxiety or depression , emotional or mental health, fatigue, fertility, financial advice or assistance, insurance, memory or concentration loss, parenting, physicial functioning, school/work and sexual functioning A number of lifestyle/behaviors can affect your ongoing health, including the risk for the cancer coming back or developing another cancer. Discuss these recommendations with your doctor or nurse: alcohol use, diet, management of medications, management of other illnesses, physical activity, sun screen use, tobacco use/cessation and weight management (loss/gain) Resources you may be interested in: www.cancer.net Chemocare.com Clear Coat Sprayer Hspt Tutor Art Therapy PSA (Prostate Cancer Support Group), meets October 08, November 05, December 03, February 04, from 2 PM to 3PM, at [address] [place] [address] Arturo Waddell- contact our social media campaign manager for future dates and times. Prepared by: Peggy Johnson APRN.STEM SHAPER Delivered on: January 03, 2019 - This Survivorship Care Plan is a cancer treatment summary and follow-up plan is provided to you to keep with your health care records and to share with your primary care provider. - This summary is a brief record of major aspects of your cancer treatment. You can share your copywith any of your doctors or nurses. However, this is not a detailed or comprehensive record of yourcare.
--- OUTSIDE RECORDS SUMMARY | 2025-04-24 16:00 | XMS_ITS | Encounter Summary ---
Author Organization [facility] [employer] Address [id number] [address] [place] [address] Care Team Providers Care Coconut Jelly Roller Name Role Phone Tab Barfield DO Primary Care Provider [phone] Encounter Details Date Type Department Care Team (Late st Contact Info) Description 05/11/2021 [facility]phone [facility] [address] [address] Ramonita Rodriguez RN Social History Tobacco Use Types Packs/Day [...] have Coronavirus / COVID-19? 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 Recommends patient will need to start Singulair and zyrtec daily. ??Pharmacy of choice is [facility] in [place]. Patient agreeable. documented in this encounter Plan of Treatment Not on file documented as of this encounter Goals Goal Patient Goal Type Associated Problems Recent Progress Patient-Stated? Author <enter goal here> General Yes Bia Mena LSW Note: Evaluation of progress towards goal: plan home with support. documented as of this encounter Visit Diagnoses Not on filedocumented in this encounter Care Teams Coconut Jelly Roller Relationship Specialty Start Date End Date Tab Barfield DO [address] [place] [address] PCP - General Internal Medicine 12/15/20 documented as of this encounter
--- OUTSIDE RECORDS SUMMARY | 2025-04-24 16:00 | XMS_ITS | Encounter Summary ---
Author Organization [facility] [employer] [facility] Address [id number] [address] [place] [address] Care Team Providers Care Vp Analytics Name Role Phone LicoTab Primary Care Provider [phone] Encounter Details Date Type Department Care Team (Late st Contact Info) Description 05/06/2022 Orders Only [facility] Pulmonary/Sleep Medicine [address] [place] [address] Ref Prov, [place] [address] Social History Tobacco Use Types Packs/Day Years [...] Procedure Name Priority Date/Time Associated Diagnosis Comments XR CHEST 2 VWS Routine 10/29/2021 CT ABDOMEN AND PELVIS W CONT Routine 10/15/2021 documented in this encounter Results * X-ray chest 2 views (10/29/2021) Anatomical Region Laterality Modality Body, Chest N/A Computed Radiogr aphy us Not In System Ref Prov IMG DIAGNOSTIC IMAGING OR DERABLES Final Result * CT abdomen and pelvis with contrast (10/15/2021) Anatomical Region Laterality Modality Body, Abdomen, Body Covera N/A Compu niharika Tomography us Not In System Ref Prov IMG CT ORDERABLES Final R esult documented in this encounter Visit Diagnoses Not on filedocumented in this encounter Care Teams Vp Analytics Relationship Specialty Start Date End Date Tab Barfield DO [address] [place] [address] PCP - General Internal Medicine 12/15/20 documented as of this encounter
--- OUTSIDE RECORDS SUMMARY | 2025-04-24 16:00 | XMS_ITS | Encounter Summary ---
Author Organization [facility] Address [address] [place] [address] Care Team Providers Care Manager Performance Name Role Phone Tab Barfield DO Primary Care Provider [phone] AngBrandt underwood DO Unavailable [phone] Source Comments In the event this information is protected by the Federal Confidentiality of Alcohol and Drug AbusePatient Records regulations: The Federal rules restrict any use of the information to criminally investigate or prosecute any alcohol or drug abuse patient.[facility] Encounter Details Date Type Department Care Team (Latest Contact Info) Description 04/22/2025 Travel Social History Tobacco Use Types Packs/Day Years Used Date Smoking Tobacco: Former Cigarettes 2 30 0 12/09/1967 - 12/08/1997 Passive Smoke Exposure: Never Smokeless Tobacco: Never Alcohol Use Standard Drinks/Week Comments Yes 0 (1 standard drink = 0.6 oz pur e alcohol) PHQ-2 Answer Date Recorded PHQ-2 score 0 04/04/2025 Area Deprivation Index Answer Date Collins rded National Score (1-100), lower number is lower ri sk 79 03/03/2023 State Score (1-10), lower number is lower risk 7 03/03/2023 Data from: https://www.neighborhoodatlas.medicine.[facility].edu/. Last address used for calculation Carlotta Owens 03/03/2023 Sex and Gender Information Value Date Recorded Sex Assigned at Not on file Legal Sex Male 1:55 PM EDT Gender Identity Not on file Sexual Orientation Not on file Occupation Industry Job Start Date Job End Date retired Not on file Not on file Not on file documented as of this encounter Plan of Treatment Upcoming Encounters Date Type Department Care Team (Late st Contact Info) Description 07/24/2025 2:15 PM EST Appointment Radiology Pet CT [address] [place] [address] CT CHEST WO IV 08/01/2025 1:15 PM EST Procedure PULMONARY [address] [facility] [place] [address] Dx: Dyspnea on exertion [R06.09] 08/01/2025 1:45 PM EST Procedure PULMONARY [address] [facility] [place] [address] SPIROMETRY WITH DILATOR IF OBSTRUCTED [[id number]] 08/01/2025 2:15 PM EST Office Visit PULMONARY [address] [place] [address] [place] [address] [place], [place] [id number] 3 month follow up 04/03/2026 3:00 PM EDT Office Visit [facility] [address] [facility] [place] [address] PSA Lab 04/10/2026 2:00 PM EDT Office Visit Radiation Oncology [address] [place] [address] Gabe Banerjee MD [address] [place] [address] 1 yr rv documented as of this encounter Visit Diagnoses Not on filedocumented in this encounter Care Teams Manager Performance Relationship Specialty Start Date End Date Tab Barfield DO [address] [facility] [place] [address] PCP - General Internal Medicine 11/23/17 Brandt Paz DO [address] [place] [address] Pulmonary Disease 03/15/23 documented as of this encounter
--- OUTSIDE RECORDS SUMMARY | 2025-04-24 16:00 | XMS_ITS | Clinical Summary ---
Author Organization [facility] Address [address] [place] [address] Care Team Providers Care Disaster Recovery Specialist Name Role Phone LicoTab Kamilah CAST Primary Care Provider [phone] Brandt Paz DO Unavailable [phone] Allergies Active Allergy Reactions Criticality Noted Date Comments Penicillins Swelling 12/08/2017 Medications pravastatin (PRAVACHOL) 80 mg tablet 8 Active losartan (COZAAR) 100 mg tablet 8 Active amLODIPine (NORVASC) 5 mg tablet 8 Active escitalopram oxalate (LEXAPRO) 10 mg tablet Take 10 mg by mouth daily at bedtime. 0 Active montelukast (SINGULAIR) 10 mg tablet 2 Active albuterol HFA (PROVENTIL HFA, VENTOLIN HFA) 90 mcg/actuation inhaler Inhale 2 Puffs as instructed every 6 hours as needed. 1 Active CONTOUR TEST STRIPS test strip use 1 strip to check glucose once daily 3 Active tamsulosin (FLOMAX) 0.4 mg 3 Active fluticasone-um eclidin-vilant er (TRELEGY ELLIPTA) 100-62.5-25 mcg inhalation powder Inhale 1 puff as instructed once daily. 1 each 11 5 Active Mirtazapine (REMERON) 7.5 mg tablet Take 7.5 mg by mouth daily at bedtime. 0 04/04/20 25 Discontinu ed(Discont inued by another Health Care Provider) ipratropium-al buterol (DUONEB) 0.5 mg-3 mg(2.5 mg base)/3 mL nebu Inhale 3 mL as instructed. 1 04/04/20 25 Discontinu ed(Discont inued by Patient) fluticasone-sa lmeterol (ADVAIR, WIXELA) 250-50 mcg/dose inhaler INHALE 1 DOSE BY MOUTH TWICE DAILY 2 04/22/20 25 Discontinu ed(Course of therapy completed) Active Problems Problem Noted Date Diagnosed Date Prostate cancer 12/19/2017 Encounters Date Type Department Care Team Description 04/22/2025 2:45 PM EDT Office Visit PULMONARY [address] [place] [address] Mary Berman MD Chronic obstructive pulmonary disease, unspecified COPD type (HCC) (Primary Dx); Mucopurulent chronic bronchitis (HCC); Dyspnea on exertion; Multiple lung nodules; History of lung cancer; THEODORE (obstructive sleep apnea) 04/22/2025 Travel 04/10/2025 Transcribe Orders Referring Physician [facility] [place] [address] Tab Barfield, Superior pulmonary sulcus syndrome, right (HCC) (Primary Dx); Mucopurulent chronic bronchitis (HCC); THEODORE (obstructive sleep apnea) 04/04/2025 2:00 PM EDT Office Visit Radiation Oncology [address] [place] [address] Gabe Banerjee MD Malignant neoplasm of prostate (HCC) (Primary Dx) 03/21/2025 Travel from Last 3 Months Immunizations Immunization Administration Dates Next Due AS03 adjuvant 05/01/2019 COVID-19 original vaccine, a ge 12+ yr, monovalent ([employer] - PURPLE TOP) 10/07/2020,09/17/2020 influenza (aIIV3) vaccine, a ge 65+ yr, trivalent, PF (FLUAD) 05/05/2021,05/01/2019 influenza (aIIV4) vaccine, a ge 65+ yr, quadrivalent, PF (FLUAD QUAD) 05/06/2022 pneumococcal conjugate (PCV2 0) vaccine, 20 valent (PREVNAR 20) 04/06/2022 Family History Medical History Relation Comments Cancer Maternal Uncle Prostate cancer Relation Status Comments Maternal Uncle Social History Tobacco Use Types Packs/Day Years [...] is lower risk 7 03/03/2023 Data from: https://www.neighborhoodatlas.medicine.[facility].edu/. Last address used for calculation [address] [facility] [facility] 03/03/2023 Sex and Gender Information Value Date Recorded Sex Assigned at Not on file Legal Sex Male 1:55 PM EDT Gender Identity Not on file Sexual Orientation Not on file Occupation Industry Job Start Date Job End Date retired Not on file Not on file Not on file Last Filed Vital Signs Vital Sign Reading Time Taken Comments Blood Pressure 123/68 04/22/2025 2:54 PM EDT Pulse 71 04/22/2025 2:54 PM EDT Temperature 36.3 C (97.4 F) 04/22/2025 2:54 PM EDT Respiratory Rate 16 04/22/2025 2:54 PM EDT Oxygen Saturation 98% 04/22/2025 2:54 PM EDT Inhaled Oxygen Concentration - - Weight 95.2 kg (209 lb 14.1 oz) 04/22/2025 2:54 PM EDT Height 171 cm (5' 7.32 ) 03/03/2023 2:00 PM EDT Body Mass Index 32.56 03/03/2023 2:00 PM EDT Plan of Treatment Upcoming Encounters Date Type Department Care Team (Late st Contact Info) Description 07/24/2025 2:15 PM EST Appointment Radiology Pet [address] [place] [address] CT CHEST WO IV 08/01/2025 1:15 PM EST Procedure PULMONARY [address] [place] [address] Dx: Dyspnea on exertion [R06.09] 08/01/2025 1:45 PM EST Procedure PULMONARY [address] [facility] [place] [address] SPIROMETRY WITH DILATOR IF OBSTRUCTED [[id number]] 08/01/2025 2:15 PM EST Office Visit PULMONARY [address] [facility] [place] [address] [place] [address] [place] [address] 3 month follow up 04/03/2026 3:00 PM EDT Office Visit [facility] [address] [place] [address] PSA Lab 04/10/2026 2:00 PM EDT Office Visit Radiation Oncology [address] [place] [address] Gabe Banerjee MD [address] [place] [address] 2 yr rv Health Maintenance Due Date Last Done Comments Anxiety Screening 1963 Depression Screening 1963 Hepatitis C Screening 1963 Shingrix Vaccine (1 of 2) 1996 Medicare Annual Wellness Visit 09/14/2011 DTaP,Tdap,Td Vaccine (1 - Tdap) 06/05/2014 4, 05/08/2013 Advance Directive Discussion 08/14/2024 Diabetes Screening 03/03/2026 03/03/2023, 0 02/24/2021, 02/23/2021, Additional history exists Pneumococcal Vaccine: 50+ Completed 04/06/2022 RSV Vaccine Completed 06/30/2023 Influenza Vaccine Completed 04/15/2025, , 05/02/2023, Additional history exists Procedures Procedure Name Priority Date/Time Associated Diagnosis Comments EXTERNAL IMAGING 04/21/2025 12:2 9 PM EDT EXTERNAL LAB 04/08/2025 3:35 PM EDT EXTERNAL LAB 04/08/2025 3:35 PM EDT PSA/PROSTSPECAG DIAG Routine 03/28/2025 1:05 PM EDT Malignant neoplasm of prostate (HCC) COMPREHENSIVE METABOLIC PANEL Routine 03/03/2023 1:19 PM EDT Dyspnea and respiratory abnormalities Pulmonary arterial hypertension (HCC) from Last 3 Months or Most Recently Relevant to Health Maintenance Results * EXTERNAL IMAGING (04/21/2025 12:29 PM EDT) Anatomical Region Laterality Modality Other us External Provider PA-C RADIOLOGY Final Res ult * EXTERNAL LAB (04/08/2025 3:35 PM EDT) Only the most recent of2 resultswithin the time period is included. us External Provider PA-C LABORATORY Final Res ult * PROSTATE-SPECIFIC ANTIGEN DIAGNOSTIC (03/28/2025 1:05 PM EDT) PSA 0.20 <2.60 ng/mL 03/29/2025 4:04 AM EDT [facility] Comment:Total PSA test metho dology used is the Electrochemiluminescence Immunoassay by [employer]. Total PSA values by differing methodologies cannot be interchanged. Blood BLOOD SPECIMEN / Unknown Venipuncture / Unknown 03/28/2025 1:05 PM EDT 03/28/2025 1:05 PM EDT us Gabe Banerjee MD LABORATORY Final Result [facility] [address] [facility] [address] [address], * (ABNORMAL) COMP METABOLIC PANEL (03/03/2023 1:19 PM EDT) Protein, Total 6.8 6.3 - 8.0 g/dL 03/04/2023 12:51 PM EDT [facility] Albumin 4.3 3.9 - 4.9 g/dL 03/04/2023 12:51 PM EDT [facility] Calcium, Total 9.3 8.5 - 10.2 mg/dL 03/04/2023 12:51 PM EDT [facility] Bilirubin, Total 0.3 0.2 - 1.3 mg/dL 03/04/2023 12:51 PM EDT [facility] Alkaline Phosphatase 73 38 - 113 U/L 03/04/2023 12:51 PM EDT [facility] AST 17 14 - 40 U/L 03/04/2023 12:51 PM EDT [facility] ALT 22 10 - 54 U/L 03/04/2023 12:51 PM EDT [facility] Glucose 178(H) 74 - 99 mg/dL 03/04/2023 12:51 PM EDT [facility] Comment: The [place] Diabetes Association (ADA) provides guidance for cutoff values for fasting glucose and random glucose. The ADA defines fasting as no caloric intake for at least 8 hours. Fasting plasma glucose results between 100 to 125 mg/dL indicate increased risk for diabetes (prediabetes). Fasting plasma glucose results greater than or equal to 126 mg/dL meet the criteria for diagnosis of diabetes. In the absence of unequivocal hyperglycemia, results should be confirmed by repeat testing. In a patient with classic symptoms of hyperglycemia or hyperglycemic crisis, random plasma glucose results greater than or equal to 200 mg/dL meet the criteria for diagnosis of diabetes. Reference: Standards of Medical Care in Diabetes 2016, [place] Diabetes Association. Diabetes Care. 2016.39(Suppl 1). BUN 20 9 - 24 mg/dL 03/04/2023 12:51 PM EDT [facility] Creatinine 1.13 0.73 - 1.22 mg/dL 03/04/2023 12:51 PM EDT [facility] Sodium 142 136 - 144 mmol/L 03/04/2023 12:51 PM EDT [facility] Potassium 4.5 3.7 - 5.1 mmol/L 03/04/2023 12:51 PM EDT [facility] Chloride 107(H) 97 - 105 mmol/L 03/04/2023 12:51 PM EDT [facility] CO2 22 22 - 30 mmol/L 03/04/2023 12:51 PM EDT [facility] Anion Gap 13 9 - 18 mmol/L 03/04/2023 12:51 PM EDT [facility] Estimated Glomerular Filtration Rate 67 >=60 mL/min/1.7 3m 03/04/2023 12:51 PM EDT [facility] Comment:Estimated Glomerular Filtration Rate (eGFR) is calculated using the 2020 CKD-EPI creatinine equation. This equation utilizes serum creatinine, sex, and age as parameters. The creatinine assay has traceable calibration to isotope dilution- mass spectrometry. Refer to KDIGO guidelines for clinical interpretation. In patients with unstable renal function, e.g. those with acute kidney injury, the eGFR may not accurately reflect actual GFR. Blood BLOOD SPECIMEN / Unknown Venipuncture / Unknown 03/03/2023 1:19 PM EDT 03/03/2023 1:19 PM EDT us Kaitlin Murcia DIRECTOR OF CHANNEL MARKETING.MANAGER INSPECTION LABORATORY Fin al Result [facility] [address] [id number], from Last 3 Months or Most Recently Relevant to Health Maintenance Insurance MEDICARE RAILROAD MEDICARE [facility] [place]PPLEMENT Care Teams Disaster Recovery Specialist Relationship Specialty Start Date End Date Tab Barfield DO [address] [place] [address] PCP - General Internal Medicine 11/23/17 Brandt Paz DO [address] [place] [address] Pulmonary Disease 03/15/23
--- OUTSIDE RECORDS SUMMARY | 2025-04-24 16:00 | XMS_ITS | Encounter Summary ---
Author Organization [facility] Address [address] [place], [place] [address] Care Team Providers Care Merchandise Marker Name Role Phone Tab Barfield DO Primary Care Provider [phone] Brandt Paz DO Unavailable [phone] Source Comments In the event this information is protected by the Federal Confidentiality of Alcohol and Drug AbusePatient Records regulations: The Federal rules restrict any use of the information to criminally investigate or prosecute any alcohol or drug abuse patient.[facility] Reason for Referral * Consult, Test, Treat (Routine) - Closed Specialty Diagnoses / Procedures Referred By Andrea munoz Referred To Contact Pulmonary and Critical Care Medicine Diagnoses Superior pulmonary sulcus syndrome, right (HCC) Mucopurulent chronic bronchitis (HCC) THEODORE (obstructive sleep apnea) Procedures OFFICE/OUTPATIENT [facility] [place] 60 MINUTES Tab Barfield DO [address] [facility] [place] [address] [place] [address] Phone: tel: fax: Referral ID Status Reason Start Date Expiration Date V isits Requested Visits Authorized [id number] Closed PCP Requested Referral 04/10/2025 04/10/2026 1 1 Encounter Details Date Type Department Care Team (Late Contact Info) Description 04/10/2025 Transcribe Orders Referring Phys[place] [address] Tab Barfield, DO [address] [facility] [place] [address] Superior pulmonary sulcus syndrome, right (HCC) (Primary Dx); Mucopurulent chronic bronchitis (HCC); THEODORE (obstructive sleep apnea) Social History Tobacco [...] is lower risk 7 03/03/2023 Data from: https://www.neighborhoodatlas.medicine.[facility].edu/. Last address used for calculation [address] 03/03/2023 Sex and Gender Information Value Date [...] Encounters Date Type Department Care Team (Late Contact Info) Description 07/24/2025 2:15 PM EST Appointment Radiology Pet CT [address] [facility] [place] [address] CT CHEST WO IV 08/01/2025 1:15 PM EST Procedure PULMONARY [address] [place] [address] Dx: Dyspnea on exertion [R06.09] 08/01/2025 1:45 PM EST Procedure PULMONARY [address] [facility] [place] [address] SPIROMETRY WITH DILATOR IF OBSTRUCTED [[id number]] 08/01/2025 2:15 PM EST Office Visit PULMONARY [address] [facility] [place] [address] [place] [address] [place] [address] 3 month follow up 04/03/2026 3:00 PM EDT Office Visit [facility] [address] [facility] [address] PSA Lab 04/10/2026 2:00 PM EDT Office Visit Radiation Oncology [address] [place] [address] Gabe Banerjee MD [address] [facility] [place] [address] 2 yr rv Scheduled Referrals Name Type Priority Associated Diagnoses Orde r Schedule CONSULT TO PULM/CRITICAL CARE Referral Routine Superior pulmonary sulcus syndrome, right (HCC) Mucopurulent chronic bronchitis (HCC) THEODORE (obstructive sleep apnea) 1 Occurrences starting 04/10/2025 until 04/10/2026 documented as of this encounter Visit Diagnoses Diagnosis Superior pulmonary sulcus syndrome, right (HCC)- Primary Mucopurulent chronic bronchitis (HCC) Mucopurulent chronic bronchitis THEODORE (obstructive sleep apnea) Obstructive sleep apnea (adult) (pediatric) documented in this encounter Care Teams Merchandise Marker Relationship Specialty Start Date End Date Tab Barfield DO [address] [place] [address] PCP - General Internal Medicine 11/23/17 Brandt Paz DO [address] [place] [address] Pulmonary Disease 03/15/23 documented as of this encounter
--- OUTSIDE RECORDS SUMMARY | 2025-04-24 16:00 | XMS_ITS | Encounter Summary ---
Author Organization [facility] Address [address] [place] [address] Care Team Providers Care Head Animal Keeper Name Role Phone Tab [place] DO Primary Care Provider [phone] AngBrandt [place] Unavailable Source Comments In the event this information is protected by the Federal Confidentiality of Alcohol and Drug AbusePatient Records regulations: The Federal rules restrict any use of the information to criminally investigate or prosecute any alcohol or drug abuse patient.[facility] Encounter Details Date Type Department Care Team (Late st Contact Info) Description 03/10/2023 Patient Msg Cardiology [address] [place] [address] Shannon Gonzalez MD [address] [place] [address] Appointment Cancellation Request Social History Tobacco Use Types Packs/Day Years Used Date Smoking Tobacco: Former Cigarettes 2 30 0 12/09/1967 - 12/08/1997 Passive Smoke Exposure: Never Smokeless Tobacco: Never Alcohol Use Standard Drinks/Week Comments Yes 0 (1 standard drink = 0.6 oz pur e alcohol) PHQ-2 Answer Date Recorded PHQ-2 score 4 03/25/2021 Area Deprivation Index Answer Date Collins rded National Score (1-100), lower number is lower ri sk 79 03/03/2023 State Score (1-10), lower number is lower risk 7 03/03/2023 Data from: https://www.neighborhoodatlas.medicine.[facility].edu/. Last address used for calculation Carlotta Owens [...] PM EST Appointment Radiology Pet CT [address] [facility] [place] [address] CT CHEST WO IV 08/01/2025 1:15 PM EST Procedure PULMONARY [address] [facility] [place] [address] Dx: Dyspnea on exertion [R06.09] 08/01/2025 1:45 PM EST Procedure PULMONARY [address] [place] [address] [place] [address] SPIROMETRY WITH DILATOR IF OBSTRUCTED [[id number]] 08/01/2025 2:15 PM EST Office Visit PULMONARY [address] [facility] [place] [address] [place] [address] [place] [address] 3 month follow up 04/03/2026 3:00 PM EDT Office Visit [facility] [address] [facility] [place] [address] PSA Lab 04/10/2026 2:00 PM EDT Office Visit Radiation Oncology [address] [facility] [place] [address] Gabe Banerjee MD [address] [place] [address] 1 yr rv documented as of this encounter Visit Diagnoses Not on filedocumented in this encounter Care Teams Head Animal Keeper Relationship Specialty Start Date End Date Tab Barfield DO [address] [place] [address] PCP - General Internal Medicine 11/23/17 Brandt Paz DO [address] [place] [address] Pulmonary Disease 03/15/23 documented as of this encounter
--- OUTSIDE RECORDS SUMMARY | 2025-04-24 16:00 | XMS_ITS | Clinical Summary ---
Author Organization [facility] Address [address] [place] [address], [address] [place] [address] Care Team Providers Care Insurance Administrator Name Role Phone Unavailable Primary Care Provider Unavailabl e Social History Tobacco Use Types Packs/Day Years Used Date Smoking Tobacco: Never Assessed Sex and Gender Information Value Date Recorded Sex Assigned at Not on file Legal Sex Male 3:07 AM EST Gender Identity Not on file Sexual Orientation Not on file Plan of Treatment Not on file
--- OUTSIDE RECORDS SUMMARY | 2025-04-24 16:00 | XMS_ITS | Patient Health Record ---
Author Organization [facility] Address [address] [facility] [place] [address] Care Team Providers Care Log Inspector Name Role Phone Zuri Tolbert MD Unavailable Unavailable Allergies Allergen (clinical drug ingredient) Drug/Non Drug Allergy documented on EMR Reaction Allergy Type Onset Date Status Penicillin Unknown Drug Allergy Active Reason For Referral No Information Medications Medication SIG (Take, Route, Frequency, Duration) Notes Start Date End Date Status Mirtazapine 7.5 MG 2 tablets at bedtime Orally Once a day; Duration: 30 day(s) Active Pravastatin Sodium 80 MG 1 tablet Orally Once a day; Duration: 30 day(s) Active Escitalopram Oxalate 10 MG 1 tablet Oral ly Once a day; Duration: 30 day(s) Active Tamsulosin HCl 0.4 MG 1 capsule Orally Once a day; Duration: 30 day(s) Active Chlorpheniramine Maleate 4 MG 1 tablet as needed Orally every 6 hrs Active amLODIPine Besylate 5 MG 1 tablet Orally Once a day; Duration: 30 day(s) Active Losartan Potassium-HCTZ 50-12.5 MG 1 tablet Orally Once a day; Duration: 30 day(s) 10 mg daily Active Montelukast Sodium 10 MG 1 tablet Orally Once a day; Duration: 30 day(s) Active Fluticasone Propionate (Inhal) 250 MCG/BLIST 1 puff Inhalation Twice a day Active Social History Tobacco Use: Social History Observation Description Date Details (start date - stop date) Former Smoker NA - NA Tobacco Use/Smoking Question Answer Notes Are you a: former smoker Alcohol Screen Question Answer Notes Did you have a drink containing alcohol in the p ast year? Yes Points 0 Interpretation Negative Problems Problem Type SNOMED Code ICD Code Onset Dates Problem Status W/U Status Risk Notes Problem Pleural effusion (42794594) Pleural effusion, right (J90) Active confirmed Plan Of Treatment No Information Insurance Providers Payer Name Payer Address Payer Phone Subscriber Number Group Number Insured Name Patient Relationship to Insured Coverage Start Date Coverage End Date MEDICARE RAILROAD [address] [address] [place] [address] [id number] Bridger Romero Self - patient is the insured Medical [place] [address] [place] [phone] [id number] Bridger Romero Self - patient is the insured Medical (General) History Medical History History ICD Code DM HTN Asthma Cancer Arthritits Surgical History Surgery Date(Month/Year) removal of partial lung rebuild of right heel
--- OUTSIDE RECORDS SUMMARY | 2025-04-24 16:00 | XMS_ITS | Encounter Summary ---
[facility] Organization [facility] Address [facility]-[id number] [address] [place] [address] Care Team Providers Care Certified Court/Medical Interpreter Name Role Phone Tab Barfield DO Primary Care Provider [phone] Encounter Details Date Type Department Care Team (Late st Contact Info) Description 05/13/2021 [facility] [address] [address] Leatha Friend RN Social History [...] Telephone Encounter - Leatha Friend RN - 05/13/2021 4:34 PM EDT Pt LM I LM documented in this encounter Plan of Treatment Not on file documented as of this encounter Goals Goal Patient Goal Type Associated Problems Recent Progress Patient-Stated? Author <enter goal here> General Yes Bia Mena LSW Note: Evaluation of progress towards goal: plan home with support. documented as of this encounter Visit Diagnoses Not on filedocumented in this encounter Care Teams Certified Court/Medical Interpreter Relationship Specialty Start Date End Date Tab Barfield DO [address] [place] [address] PCP - General Internal Medicine 12/15/20 documented as of this encounter
--- OUTSIDE RECORDS SUMMARY | 2025-04-24 16:00 | XMS_ITS | Encounter Summary ---
Author Organization [facility] [employer] Address [facility] [id number] [address] [place] [address] Care Team Providers Care Fill Manager Name Role Phone Tab Barfield DO Primary Care Provider [phone] Encounter Details Date Type Department Care Team (Late st Contact Info) Description 05/11/2021 Orders Only [facility] Pulmonary/Sleep Medicine [address] [address] Jayshree Qureshi, [employer] MATE-FUEL STORAGE TECHNICIAN [address] [place] [address], [address] [place] [address] Social History Tobacco Use Types Packs/Day Years [...] on filedocumented in this encounter Care Teams Fill Manager Relationship Specialty [place] [address] [place] [address] PCP - General Internal Medicine 12/15/20 documented as of this encounter
--- NOTE | 2025-04-24 16:01 | CA_ITS ---
Patient Name: JACINTA TSANG MR#: [id number] : 1945 Exam Date: 04/24/2025 Ordering Doctor: NON-STAFF PHYSICIAN ECHOCARDIOGRAM REPORT PROCEDURE: CA ECHO DOPPLER COMPLETE INDICATIONS: Dyspnea on exertion, former smoker, hypertension, diabetes COMPARISON: None. DESCRIPTION: COMPLETE ECHOCARDIOGRAM Real-time transthoracic echocardiography with 2D, M-mode, spectral and color flow Doppler performed. QUALITY: Technical quality was good. LEFT VENTRICLE: Normal chamber size. Mild concentric left ventricular hypertrophy. Normal left ventricle systolic function without wall motion abnormalities, ejection fraction 55% LV EF: Normal left ventricular ejection fraction, (>55%). DIASTOLIC: Normal diastolic function. ATRIAL SEPTUM: Visually appears intact. LEFT ATRIUM: Normal chamber size. RIGHT ATRIUM: Normal chamber size. RIGHT VENTRICLE: Normal chamber size. Normal right ventricular systolic function. TRICUSPID VALVE: Normal mobility and thickness. No stenosis with no regurgitation. MITRAL VALVE: Normal mobility and thickness. No evidence of mitral valve stenosis. There is no mitral annular calcification. No mitral regurgitation. AORTIC VALVE: Normal trileaflet appearance. Mild aortic sclerosis but normal leaflet mobility. No evidence of aortic valve stenosis. No aortic regurgitation. AORTIC ROOT: Slightly dilated aortic root, 3.8 cm. Ascending aorta is normal in size. PULMONIC VALVE: Normal thickness and mobility. No stenosis. No regurgitation. PERICARDIUM: No evidence of pericardial effusion. IVC: Normal size. It Collapses with inspirations. PLEURA: CONCLUSION: Mild concentric left ventricular hypertrophy Normal left ventricular cavity size, normal left ventricular systolic function without wall motion abnormalities, ejection fraction 55% Normal left ventricular diastolic function Normal right ventricle size and systolic function No significant valvular abnormalities Slightly dilated aortic root 3.8 cm Adult Echocardiography Procedure Report Left Ventricle LVEDD (3.7 - 5.6 cm): 4.42 cm LVESD (2.2 - 4.0 cm): 2.93 cm LVIVS thickness (0.6 - 1.2 cm): 1.32 cm LVPW thickness (0.5 - 1.0 cm): 1.08 cm e': 0.10 m/s E - e': 7.96 LVOT Max Gradient: 2.85 mm[Hg] LVOT Area (cm2): 0.84 m/s Peak Velocity (LVOT): 0.84 m/s Mean Velocity (LVOT): 0.58 m/s LVOT Diameter 2.32 cm Left Ventricular Ejection Fraction: 67.24 % Left Atrium LA Volume Index (2D A2C): 31.36 ml/m2 Left Atrium Systolic Dimension: 4.13 cm Mitral Valve MV E to A Ratio: 0.86 MV Max Gradient: MV Mean Gradient: Mitral Valve A-Wave Peak Velocity: 0.90 m/s Mitral Valve E-Wave Peak Velocity: 0.77 m/s Cardiovascular Orifice Area: Right Ventricle RV Internal Diastolic Dimension: Aorta AO Root Diam: 3.77 cm Ascending Ao Diam: 3.31 cm Aortic Valve AoV Area (Peak [place]): 2.64 cm2, 2.64 cm2 AoV Area (VTI): 2.87 cm2, 2.87 cm2 Deceleration [place]: Pressure Half-Time: Peak Velocity(Antegrade Flow): 1.35 m/s Peak Gradient(Antegrade Flow): 7.26 mm[Hg] Mean Velocity(Antegrade Flow): 0.87 m/s Mean Gradient(Antegrade Flow): 3.51 mm[Hg] Velocity Time Integral: 32.18 cm Tricuspid Valve Peak Velocity (Regurgitant Flow): Peak Velocity: Pulmonic Valve Mean Gradient: Mean Velocity: Peak Velocity: Peak Gradient: 3.35 mm[Hg], 3.48 mm[Hg] Right Atrium Right Atrium Systolic Pressure: 55.55 ml, 55.55 ml Dictated by: Dorota Ashford MD on 04/25/2025 at 18:54 Approved by: Dorota Ashford MD on 04/25/2025 at 19:00
--- OUTSIDE RECORDS SUMMARY | 2025-04-24 16:01 | XMS_ITS | Patient Health Record ---
Author Organization [facility] [place] Address [address] [place] [address] Care Team Providers Care Occupational Hygienist Name Role Phone aTb Barfield DO Primary Care Provider Melanie Aquino Unavailable [phone] Allergies Allergen (clinical drug ingredient) Drug/Non Drug Allergy documented on EMR Reaction Allergy Type Onset Date Status Penicillin G Potassi um (penicillin) Unknown Drug Allergy Active Mirapex Leg pain Drug Allergy Active Results Component Value Reference Range Notes CT Chest w/o contrast Reviewed date:06/27/2024 08:41:39 AM Interpretation: Performing Lab: Notes/Report: CT chest wo con Reviewed date:07/03/2024 07:19:30 AM Interpretation: Performing Lab: Notes/Report: Source Facility: [place] [address] [place] [address] CT Scan Report Signed Patient: JACINTA ROBLES MR#: [id number] : 1945 Acct:[id number] Age/Sex: 78 / M ADM Date: 06/25/24 Loc: CT Attending Dr: Melanie Gayle D.O. Ordering Physician: Melanie Gayle D.O. Date of Service: 06/25/24 Procedure(s): CT chest wo con Accession Number(s): [id number] cc: Tab Barfield D.O. [place] [address] Patient Name: JACINTA ROBLES MRN: [facility]:[id number] date: 1945 Sex: M Assigned Patient Location: CT Current Patient Location: Accession/Order Number: [id number] Exam Date: 06/25/2024 13:08 Report Date: 06/27/2024 05:52 At the request of: MELANIETERRELL GAYLE Procedure: CT chest wo con EXAMINATION: CT chest wo con HISTORY: Multiple Pulmonary Nodule, Adenocarcinoma Right Lung ; follow-up 6 mm nodule within left lower lobe COMPARISON: CT chest 01/01/2024, 03/07/2022 TECHNIQUE: Axial, Coronal, and Sagittal images were created without the administration of IV contrast material. Dose reduction techniques were achieved by using automated exposure control and/or adjustment of mA and/or kV according to patient size and/or use of iterative reconstruction technique. FINDINGS: LUNGS: 7 mm nodule within left lower lobe lateral costal phrenic angle. Stable 4 mm nodule within lateral right middle lobe at level of aortic arch. Stable surgical changes from right upper lobe lobectomy. PLEURA: No mass, effusion, or pneumothorax. VASCULATURE: No abnormality. NEDA: Calcified right hilar lymph nodes suggestive of chronic granulomatous disease. MEDIASTINUM: Calcified lymph nodes. CARDIAC: No enlargement, pericardial thickening, or pericardial effusion. Coronary Artery calcifications: Coronary calcifications are moderate. AORTA: No aneurysm or dissection. CHEST WALL: No mass or axillary adenopathy BONES: Old healed rib fracture(s). LIMITED ABDOMEN: No suspicious findings. Limited images of the upper abdomen. OTHER: Negative. CT/CT chest wo con IMPRESSION: 1. Lung-RADS Category 3- Probably benign. Probably benign finding(s)- short term follow up suggested; includes nodules with a low likelihood of becoming a clinically active cancer. Six month LDCT. 2. Again, slight interval increase in size of a now 7 mm nodule within the left lower lobe lateral costophrenic angle (6 mm on 01/01/2024, 5 mm on 03/07/2022). This is below criteria for PET imaging. Additional follow-up CT chest in 6 months is recommended. Electronically authenticated by: CURTIS MERLOS Date: 06/27/2024 05:52 Dictated By: Curtis Merlos M.D. Signed By: 06/27/2455 DD/ TD/TT: Malt House Loader: The [address] [address] [address] Scan Report Signed Patient: JACINTA ROBLES MR#: [id number] : 1945 Acct:[id number] Age/Sex: 78 / M ADM Date: 06/25/24 Loc: CT Attending Dr: Melanie Gayle D.O. Ordering Physician: Melanie Gayle D.O. Date of Service: 06/25/24 Procedure(s): CT chest wo con Accession Number(s): [id number] cc: Tab Barfield D.O. [address] [address] Patient Name: JACINTA ROBLES MRN: [id number] date: 1945 Sex: M Assigned Patient Location: CT Current Patient Location: Accession/Order Numb er: [id number] Exam Date: 13:08 Report Date: 06/27/2024 05:52 At the request of: MELANIE GAYLE Procedure: CT chest wo con EXAMINATION: CT chest wo con HISTORY: Multiple Pu lmonary Nodule, Adenocarcinoma Right Lung ; follow-up 6 mm nodule within left lower lobe COMPARISON: CT chest 01/01/2024, 03/07/2022 TECHNIQUE: Axial, Co cuco, and Sagittal images were created without the administration of IV contrast material. Dose reduction techniques were achieved by using automated e xposure control and/or adjustment of mA and/or kV according to patient size and/ or use of iterative reconstruction technique. FINDINGS: LUNGS: 7 mm nodule w ithin left lower lobe lateral costal phrenic angle. Stable 4 mm nodule within l ateral right middle lobe at level of aortic arch. Stable surgical changes fro m right upper lobe lobectomy. PLEURA: No mass, eff usion, or pneumothorax. VASCULATURE: No abnormality. NEDA: Calcified righ t hilar lymph nodes suggestive of chronic granulomatous disease. MEDIASTINUM: Calcifi ed lymph nodes. CARDIAC: No enlargem ent, pericardial thickening, or pericardial effusion. Coronary Artery calc ifications: Coronary calcifications are moderate. AORTA: No aneurysm o r dissection. CHEST WALL: No mass or axillary adenopathy BONES: Old healed ri b fracture(s). LIMITED ABDOMEN: No suspicious findings. Limited images of the upper abdomen. OTHER: Negative. C T/CT chest wo con IMPRESSION: 1. Lung-RADS Categor y 3- Probably benign. Probably benign finding(s)- short term follow up sugge sted; includes nodules with a low likelihood of becoming a clinically active ca ncer. Six month LDCT. 2. Again, slight int erval increase in size of a now 7 mm nodule within the left lower lobe lateral c ostophrenic angle (6 mm on 01/01/2024, 5 mm on 03/07/2022). This is below criter ia for PET imaging. Additional follow-up CT chest in 6 months is recommended. Electronically authe nticated by: CURTIS MERLOS Date: 06/27/2024 05:52 Dictated By: Curtis Merlos M.D. Signed By: 06/27/2455 DD/ TD/TT: Malt House Loader: CT chest wo con Reviewed date:12/16/2024 12:09:33 PM Interpretation: Performing Lab: Notes/Report: Source Facility: [place] [address] CT Scan Report Signed Patient: JACINTA ROBLES MR#: [id number] : 1945 Acct:[id number] Age/Sex: 79 / M ADM Date: 12/12/24 Loc: CT Attending Dr: Melanie Gayle D.O. Ordering Physician: Melanie Gayle D.O. Date of Service: 12/12/24 Procedure(s): CT chest wo con Accession Number(s): [id number] cc: Tab Barfield D.O. [place] [address] Patient Name: JACINTA ROBLES MRN: [id number] date: 1945 Sex: M Assigned Patient Location: CT Current Patient Location: CT Accession/Order Number: [id number] Exam Date: 12/12/2024 15:01 Report Date: 12/12/2024 15:05 At the request of: MELANIE GAYLE DO Procedure: CT chest wo con CT CHEST WITHOUT IV CONTRAST: CLINICAL HISTORY: Adenocarcinoma Of Right Lung COMPARISON: CT chest 06/25/2024 TECHNIQUE: Spiral images were obtained through the chest without IV contrast. This CT exam was performed using one or more following dose reduction techniques: Automated exposure control, adjustment of the mA and/or kV according to patient size, or use of iterative reconstruction technique. FINDINGS: Mediastinum:Thoracic aorta appears normal in caliber. Pulmonary trunk appears nondilated. No pericardial effusion. Calcified mediastinal and right hilar lymph nodes. The esophagus is grossly unremarkable. Lungs:Lobectomy changes involving the right lung with associated scarring. No consolidation pneumothorax or pleural effusion. Stable 6 mm noncalcified pulmonary nodule left lower lobe series 4 image 74 a few tree-in-bud nodules involving the left lower lobe as well. Stable 4 mm nodule right middle lobe series 4 image 34. Abd:No acute findings. Soft tissues/Bones: No acute findings. Osseous structures demonstrate degenerative change. CT/CT chest wo con IMPRESSION: No CT evidence of progression of disease. Stable nodularity left lower lobe and right middle lobe largest measuring 6 mm. Impression dictated by: Chiki Ruth Jr., D.O. 12/12/2024 3:05 PM Dictation Location: [place] [address] Electronically authenticated by: [id number] Y Date: 12/12/2024 15:05 Dictated By: Chiki Ruth M.D. Signed By: 12/12/24 1507 DD/ 1505 TD/TT: Malt House Loader: [place] [address] CT Scan Report Signed Patient: JACINTA ROBLES MR#: [id number] : 1945 Acct:[id number] Age/Sex: 79 / M ADM Date: 12/12/24 Loc: CT Attending Dr: Melanie Gayle D.O. Ordering Physician: Melanie Gayle D.O. Date of Service: 12/12/24 Procedure(s): CT chest wo con Accession Number(s): [id number] cc: Tab Barfield D.O. The [address] [address] Patient Name: JACINTA ROBLES MRN: [id number] date: 1945 Sex: M Assigned Patient Location: CT Current Patient Location: CT Accession/Order Elo er: [id number] Exam Date: 12/12/2024 15:01 Report Date: 12/12/2024 15:05 At the request of: MELANIE GAYLE DO Procedure: CT chest wo con CT CHEST WITHOUT IV CONTRAST: CLINICAL HISTORY: Adenocarcinoma Of Right Lung COMPARISON: CT chest 06/25/2024 TECHNIQUE: Spiral im ages were obtained through the chest without IV contrast. This CT exam was per formed using one or more following dose reduction techniques: Automate d exposure control, adjustment of the mA and/or kV according to patient size, or use of iterative reconstruction technique. FINDINGS: Mediastinum:Thoracic aorta appears normal in caliber. Pulmonary trunk appears nondilated. No peric ardial effusion. Calcified mediastinal and right hilar lymph nodes. The eso phagus is grossly unremarkable. Lungs:Lobectomy souza ges involving the right lung with associated scarring. No consolidation pneumo thorax or pleural effusion. Stable 6 mm noncalcified pulmonary nodule lef t lower lobe series 4 image 74 a few tree-in-bud nodules involving the left l ower lobe as well. Stable 4 mm nodule right middle lobe series 4 image 34. Abd:No acute findings. Soft tissues/Bones: No acute findings. Osseous structures demonstrate degenerative change. C T/CT chest wo con IMPRESSION: No CT evidence of pr ogression of disease. Stable nodularity left lower lobe and right middle lob e largest measuring 6 mm. Impression dictated by: Chiki Ruth Jr., DShyanne 12/12/2024 3:05 PM Dictation Location: [place] [address] Electronically authe nticated by: [id number] Y Date: 12/12/2024 15:05 Dictated By: Chiki Del Castillo i, M.D. Signed By: 12/12/24 1507 DD/ 1505 TD/TT: Malt House Loader: CT Chest w/o contrast Reviewed date:12/12/2024 05:02:30 PM Interpretation: Performing Lab: Notes/Report: Reason For Referral No Information Medications Medication SIG (Take, Route, Frequency, Duration) Notes Start Date End Date Status metFORMIN HCl 500 MG TAKE 1 TABLET BY MOUTH ONCE DAILY WITH A MEAL Oral for 30 Days Active Losartan Potassium 100 MG 1 tablet Orally Once a day Active Montelukast Sodium 10 MG 1 tablet Orally Once a day for 90 days Active amLODIPine Besylate 10 MG 1 tablet Orally Once a day Active Ventolin HFA 108 (90 Base) MCG/ACT 2 puffs as needed for SOB Inhalation Q4H for 90 days Dispense #3 inhalers Active Albuterol Sulfate (2.5 MG/3ML) 0.083% 3 mL as needed Inhalation every 6 hrs Not-Taking Escitalopram Oxalate 10 MG 1 tablet Orally Once a day Active Tamsulosin HCl 0.4 [...] is covered and cheapest for patient Active Immunizations Vaccine Route Administration Date Status Comme nts Arexvy Unknown 06/30/2023 Administered Comirnaty Pfizer Syringe Pre -Filled 30 mcg/0.3 mL Unknown 06/30/2023 Administered Comirnaty Pfizer Syringe Pre -Filled 30 mcg/0.3 mL Unknown 07/03/2024 Administered Flu, Fluad (37688) 65 yrs + High Dose Seasonal (9808-8395) Unknown 04/23/2024 Administered Flu, Fluad (74041) 65 yrs+, single-dose syringe (3432-4408) Unknown 05/06/2022 Administered Pneumococcal (Prevnar 13) Unknown 04/06/2022 Administer ed Pneumococcal (Prevnar 20) Unknown 04/06/2022 Administer ed SARS-COV-2 (COVID 19) bivale nt 30 mcg/0.3 ml dose Unknown 07/05/2022 Administered Social History Tobacco Use: Social History Observation Description Date Details (start date - stop date) Former Smoker NA - NA Tobacco Control (Standard) Question Answer Notes Tobacco use: Former smoker How long has it been since y ou last smoked? 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) Active confirmed Problem Restless legs syndrome (84421235) Restless leg syndrome (G25.81) Active confirmed Problem Obstructive sleep apnea (54009900) Obstructive sleep apnea (G47.33) Active confirmed PSG 06/15/2022: AHI 30.6 Problem Type II diabetes mellitus well controlled (866463858) Diabetes mellitus type 2, controlled (E11.9) Active confirmed Problem Multiple pulmonary nodules (530552485) Multiple pulmonary nodules (R91.8) Active confirmed Problem Ex-tobacco user (finding) (659252673) History of tobacco abuse (Z87.891) Active confirmed Problem Adenocarcinoma of right lung (667333457075058 00) Adenocarcinoma of right lung (C34.91) Active confirmed 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[facility]; Stage 1A3 (T1/N0/M0) Problem 77283564 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) Active confirmed Echo 05/04/2022: RVSP 56mmHG Problem Body mass index 30.00 to 34.99 (737994218978048 ) Body mass index [BMI] 31.0-31.9, adult (Z68.31) Active confirmed Problem 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) Active confirmed Vital Signs Heart Rate 70 /min 12/31/2024 Temperature 96.8 degrees Fahrenheit 12/31/2024 Respiratory Rate 18 /min 12/31/2024 Oximetry 97 % 12/31/2024 Blood pressure diastolic 68 mm Hg 12/31/2024 Height 68 in 12/31/2024 Blood pressure systolic 137 mm Hg 12/31/2024 Weight 209.4 lbs 12/31/2024 BMI 31.84 kg/m2 12/31/2024 Encounters Encounter Location Date Provider Diagnosis [facility] [address] [place] [address] 05/01/2024 [facility] [address] [place] [address] 03/24/2025 [facility] [address] [place] [address] 07/03/2024 [facility] Moderate persistent asthma, uncomplicated J45.40 ; Adenocarcinoma of right lung C34.91 ; Obstructive sleep apnea G47.33 ; Restless leg syndrome G25.81 ; Peripheral eosinophilia D72.19 ; Diabetes mellitus type 2, controlled E11.9 ; 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 12/31/2024 Moderate persistent asthma, uncomplicated (ICD-10 - [...] chest CT to document stability vs. worsening. 07/03/2024 Obstructive sleep apnea (ICD-10 - G47.33) PSG 06/15/2022: AHI 30.6 Zoph-dp-yepd encounter performed with the patient to document continued need for PAP therapy. -PSG 06/15/2022; AHI 30.6-PAP titration 01/16/2023: CPAP 24ycD0X -Compliance was reviewed from 06/02/2024 - 07/01/2024-Total days used: (100%)-Total of all days >4 hours of use (100%)-Current mode & pressures: AirSense 11 AutoSet - CPAP 15cm D7A-Nbemcham AHI: 2.6-Air leak 95th percentile: 0.5L/min-Mask/harn ess [...] pain). No significant complaints regarding this today. 12/31/2024 Obstructive sleep apnea (ICD-10 - G47.33) PSG 06/15/2022: AHI 30.6 Yfqy-aw-umgm encounter performed with the patient to document continued need for PAP therapy. -DME: Rita -PSG 06/15/2022; AHI 30.6-PAP titration 01/16/2023: CPAP 72omT3E -Compliance was reviewed from 11/30/2024 - 12/29/2024-Total days used: (100%)-Total of all days >4 hours of use (100%)-Current mode & pressures: AirSense 11 AutoSet - CPAP 15cm K5E-Tajwmxbb AHI: 3.4-Air leak 95th percentile: 0.3L/min-Mask/harn ess fitting: No issues today-Sleep quality: Better with CPAP use-Daytime hypersomnolence: Less with CPAP use-Recommendation s: Superb compliance. No complaints today. Continue CPAP @ current settings. Continue PAP @ HS/naps. Refill/renew/reord er supplies, CPAP as required. 12/31/2024 Restless leg syndrome (ICD-10 - G25.81) Tried and failed Mirapex (caused leg pain). Does not complain of this today. 07/03/2024 Peripheral eosinophilia (ICD-10 - [...] to manage diabetes in this situation. 12/31/2024 Peripheral eosinophilia (ICD-10 - D72.19) Prescribed [...] to manage diabetes in this situation. 07/03/2024 nursing home (current) use of inhaled steroids (ICD-10 - Z79.51) Patient was counseled to rinse & gargle with water after inhaled corticosteroid use. 07/03/2024 History of tobacco abuse (ICD-10 - Z87.891) This patient does not meet current LDCT criteria (e.g. age, time from cessation, # pack-years). 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 12/31/2024 Obesity, unspecified (ICD-10 - E66.9) Patient's weight is inducing a restrictive pulmonary physiology. Weight loss indicated: Decrease calories, increase activity. 07/03/2024 Other Reviewed with patient: CPET + [facility] 04/27/2023 showed mild postcapillary pulmonary hypertension (mPAP 33mmHg, Wood 1.65). Interpretation: Dyspnea is associated with lobectomy + obesity/deconditio tyler. He was told to decrease salt intake and be more active. 12/31/2024 Other Plan Of Treatment No Information Insurance Providers Payer Name Payer Address Payer Phone Subscriber Number Group Number Insured Name Patient Relationship to Insured Coverage Start Date Coverage End Date MEDICARE RAILROAD [address] [address] [place], [place] [id number] Shahana keene Jacinta Self - patient is the insured 2 MMO MEDICARE SUPPLEME NT [address] [place] [address] [phone] [id number] Shahana keene Jacinta Self - patient is the insured Medical (General) History Medical History History ICD Code Moderate persistent asthma, uncomplicate d J45.40 Obstructive sleep apnea G47.33 Peripheral eosinophilia D72.19 nursing home (current) use of inhaled stero ids Z79.51 Iron deficiency anemia D50.9 Adenocarcinoma of right lung C34.91 Diabetes mellitus type 2, controlled E11 .9 Hypertensive renal disease I12.9 Gastroesophageal reflux disease K21.9 Radiation proctitis K62.7 Prostate cancer C61 Bilateral sensorineural hearing loss H90 .3 Familial hypercholesteremia E78.01 Restless leg syndrome G25.81 History of esophageal stricture Z87.19 History of tobacco abuse Z87.891 Multiple pulmonary nodules R91.8 Surgical History Surgery Date(Month/Year) Cholecystectomy Sigmoidoscopy 07/15/2021 lobectomy: lung-Upper Right Lobe 021 EGD Open reduction, internal fixation (ORIF) -Right Calcaneus Cardiac Cath with [facility] 04/27/2023 Colonoscopy
--- OUTSIDE RECORDS SUMMARY | 2025-04-24 16:01 | XMS_ITS | Clinical Summary ---
Author Organization [employer] Address [id number] [address] [place] [address] Care Team Providers Care Liquid Sugar Fortifier Name Role Phone Tab Barfield DO Primary Care Provider [phone] Allergies Active Allergy Reactions Criticality Noted Date Comments Penicillins Swelling,Rash Low 12/31/2020 Medications pravastatin (PRAVACHOL) 80 mg tabletIndication s:hyperlipidemia Take 80 mg by mouth daily with breakfast Indications: excessive fat in the blood. 1 Active losartan (COZAAR) 100 mg tablet Take 100 mg by mouth daily with breakfast. 1 Active tamsulosin (FLOMAX) 0.4 mg capsule Take 0.4 mg by mouth daily with breakfast. 1 Active escitalopram (LEXAPRO) 10 mg tabletIndication s:generalized anxiety disorder Take 10 mg by mouth nightly Indications: repeated episodes of anxiety. 1 Active mirtazapine (REMERON) 7.5 mg tablet Take 7.5 mg by mouth nightly. 1 Active TURMERIC ORAL Take 500 mg by mouth daily. Active amLODIPine (NORVASC) 5 mg tabletIndication s:hypertension Take 5 mg by mouth nightly Indications: high blood pressure. Active chlorpheniramine (CHLOR-TRIMETON) 4 mg tablet Take 1 tablet by mouth daily as needed for allergies. Active multivitamin (THERAGRAN) tablet Take 1 tablet by mouth daily. Active ipratropium-albu teroL (DUO-NEB) 0.5 mg-3 mg(2.5 mg base)/3 mL nebulizerIndicat ions:Malignant neoplasm of upper lobe of right lung (CMS-HCC) Inhale 3 mL by nebulization every 4 (four) hours while awake. 120 mL 1 Active albuterol (PROVENTIL HFA;VENTOLIN HFA) 90 mcg/actuation inhalerIndicatio ns:Moderate persistent asthma without complication Inhale 2 puffs every 6 (six) hours as needed for wheezing. 18 g 11 1 Active montelukast (SINGULAIR) 10 mg tablet Take 1 tablet (10 mg total) by mouth nightly. 30 tablet 1 Active fluticasone propion-salmeter oL (ADVAIR DISKUS) 250-50 mcg/dose DISKUSIndication s:Moderate persistent asthma without complication Inhale 1 puff 2 (two) times a day. 1 each 11 1 Active Active Problems Problem Noted Date Diagnosed Date Lung cancer 02/19/2021 Malignant neoplasm of upper lobe of right lung 0 01/28/2021 Cancer Staging:Clinical: Unsigned Pathologic:Stage IA3(pT1c, pN0, cM0) - Signed by Michelle Garcia DO on 05/06/2021 Ground glass opacity present on imaging of lung 12/31/2020 Immunizations Immunization Administration Dates Next Due COVID-19, mRNA, LNP-S, PF, 30mcg/0.3mL Dose 09/15,09/17/2020 Influenza, Trivalent, Adjuvanted 05/01/2019 Family History Medical History Relation Name Comments Anesthesia problems Neg Hx Social History Tobacco Use Types Packs/Day Years [...] PM EDT Sexual Orientation Not on file Last Filed Vital Signs Vital Sign Reading Time Taken Comments Blood Pressure 127/57 05/06/2021 3:03 PM EDT Pulse 81 05/06/2021 3:03 PM EDT Temperature 36.2 C (97.1 F) 05/06/2021 3:03 PM EDT Respiratory Rate 20 03/04/2021 11:40 AM EDT Oxygen Saturation 96% 05/06/2021 3:03 PM EDT Inhaled Oxygen Concentration - - Weight 91 kg (200 lb 9.6 oz) 05/06/2021 3:03 PM EDT Height 172.7 cm (5' 8 ) 05/06/2021 3:03 PM EDT Body Mass Index 30.5 05/06/2021 3:03 PM EDT Plan of Treatment Health Maintenance Due Date Last Done Comments Depression Screening 1957 Tobacco Screening 1957 DTaP,Tdap and Td Vaccines (1 - Tdap) 1965 Zoster (Shingles) Vaccine (1 of 2) 1965 Abdominal Aortic Aneurysm (AAA) Screen 2011 Fall Risk Screening 2011 COVID-19 Vaccine (3 - Pfizer risk series) 11/04/2020 10/07/2020, 09/17/2020 Influenza Vaccine 04/14/2025 05/05/2021, 05/01/2019 Goals Goal Patient Goal Type Associated Problems Recent Progress Patient-Stated? Author <enter goal here> General Yes Bia Mena LSW Note: Evaluation of progress towards goal: plan home with support. Medical Devices Not on file Insurance [employer] Advance Directives * Full Code (Latest Code Status on File) Date Activated Date Inactivated Comments 02/21/2021 3:52 PM 02/25/2021 2:16 PM Care Teams Liquid Sugar Fortifier Relationship Specialty Start Date End Date Tab Barfield DO [address] [place] [address] PCP - General Internal Medicine 12/15/20
--- OUTSIDE RECORDS SUMMARY | 2025-04-24 16:01 | XMS_ITS | CCD ---
Author Name Interface, [id number] [facility] Address [address] [place] [address] [facility] Address [address] [place] [address] Reason for Visit Social History Date Name Value 09/04/2020 Sex Male
--- OUTSIDE RECORDS SUMMARY | 2025-04-24 16:01 | XMS_ITS | Patient Health Record ---
Author Organization [facility] Address [address] [address] Care Team Providers Care Caltrans Equipment Operator Name Role Phone Sebastien Ramirez Unavailable [phone] ALLERGIES Allergen (clinical drug ingredient) Drug/Non Drug Allergy documented on EMR Reaction Allergy Type Onset Date Status Penicillin G Benzathine Unknown Drug Allergy Active RESULTS Component Value Reference Range Notes COMPREHENSIVE METABOLIC PANE L Reviewed date:10/13/2024 10:01:33 AM Interpretation: Performing Lab:[facility] [id number] [place] [address] Osorio Maguire, PhD., F-ABFT Notes/Report: 0; 0; 0 FASTING:NO FASTING: NO [...] Reviewed date:10/13/2024 10:01:21 AM Interpretation: Performing Lab:[facility] [address] Osorio Maguire, PhD., -AB Notes/Report: 0; 0; 0 FASTING:NO FASTING: NO [...] MPV 10.3 7.5-12.5 fL ABSOLUTE NEUTROPHILS 4622 [phone] cells/uL ABSOLUTE LYMPHOCYTES 5694 043-7164 cells/uL ABSOLUTE MONOCYTES 734 200-950 cells/uL ABSOLUTE EOSINOPHILS 324 15-500 cells/uL ABSOLUTE BASOPHILS 72 0-200 cells/uL NEUTROPHILS 64.2 LYMPHOCYTES 20.1 MONOCYTES 10.2 EOSINOPHILS 4.5 BASOPHILS 1.0 PSA, TOTAL Reviewed date:10/10/2024 08:00:04 AM Interpretation: Performing Lab:[facility] Osorio Maguire, PhD., F-AB Notes/Report: 0; 0; 0 FASTING:NO FASTING: NO PSA, TOTAL 0.18 < OR = 4.00 ng/mL The total PSA value from this assay system is standardized against the WHO standard. The test result will be approximately 20% lower when compared to the equimolar-standardized total PSA ([place]). Comparison of serial PSA results should be interpreted with this fact in mind. This test was performed using the Siemens chemiluminescent method. Values obtained from different assay methods cannot be used interchangeably. PSA levels, regardless of value, should not be interpreted as absolute evidence of the presence or absence of disease. Urinary Tract Infections/Ant ibiotic resistance Reviewed date:10/18/2024 08:00:46 AM Interpretation: Performing Lab:[facility], [place], [place], [facility], [facility], [place] [facility] Notes/Report: Result Summary: Negative - REASON FOR REFERRAL No Information MEDICATIONS Medication SIG (Take, Route, Fr equency, [...] Are you a current every day smoker PROBLEMS Problem Type ICD Code Onset Dates Problem Status W/U Status Risk SNOMED Code Notes Problem Malignant neoplasm of prostate (C61) Active confirmed Malignant neoplasm of prostate (843806622) Problem 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1) Active confirmed Lower urinary tract symptoms due to benign prostatic hypertrophy (32315089704345) Problem Elevated prostate specific antigen [PSA] (R97.20) Active confirmed Elevated PSA (967127061) VITAL SIGNS Heart Rate 74 /min 10/16/2024 Blood pressure diastolic 70 mm Hg 10/16/2024 Height 68 in 10/16/2024 Blood pressure systolic 129 mm Hg 10/16/2024 Weight 185 lbs 10/16/2024 BMI 28.13 kg/m2 10/16/2024 Encounters Encounter Location Date Provider Diagnosis [facility] [address] [place] [address] 10/16/2024 Sebastien Ramirez Testicular hypofunction E29.1 ; Benign prostatic [...] - UTI vs stone PLAN OF TREATMENT Pending Test Test Name Order Date Urinalysis 10/20/2017 Urinalysis 11/03/2017 Urinalysis 11/13/2017 Urinalysis 11/20/2017 Urinalysis 09/30/2019 Urinalysis 10/16/2017 Urinalysis 10/05/2020 Urinalysis 10/13/2021 Urinalysis 10/18/2021 Urinalysis 10/10/2022 Urinalysis 10/18/2023 Urinalysis 10/16/2024 ELECTRO-UROFLOWMETRY, FIRST 10/13/2021 ELECTRO-UROFLOWMETRY, FIRST 10/05/2020 ELECTRO-UROFLOWMETRY, FIRST 10/16/2017 ELECTRO-UROFLOWMETRY, FIRST 09/30/2019 Comprehensive Metabolic Panel 10/05/2020 Bladder Scan 10/18/2023 Bladder Scan 09/30/2019 Bladder Scan 10/16/2017 Bladder Scan 10/05/2020 Bladder Scan 10/13/2021 Bladder Scan 10/10/2022 UTI PCR 10/10/2022 UTI PCR 10/13/2021 UTI PCR 10/18/2023 UTI PCR 10/16/2024 Next Appt Details Provider Name:Sebastien Ramirez, 0 10/15/2025 04:00:00 PM, [address] [facility] [address] [place], [address], Insurance Providers Payer Name Payer Address Payer Phone Subscriber Number Group Number Insured Name Patient Relationship to Insured Coverage Start Date Coverage End Date MEDICARE RAILROAD [address] [address] [place] [address] [id number] Bridger Romero Self - patient is the insured [employer] [address] [place] [address] [id number] Shahana keene Bridger Self - patient is the insured 9 MEDICATIONS ADMINISTERED Medication Instructions Date of Administration Dosage Notes Lupron 11/29/2017 7.5 mg MEDICAL (GENERAL) HISTORY Medical History History ICD Code DM HTN Surgical History Surgery Date(Month/Year) Rt foot surgery
--- OUTSIDE RECORDS SUMMARY | 2025-04-24 16:01 | XMS_ITS | Encounter Summary ---
Author Organization [employer] Address [id number] [address] [place] [address] Care Team Providers Care Posting Machine Operator Name Role Phone Tab Barfield DO Primary Care Provider [phone] Reason for Visit * Reason Comments Med Refill Encounter Details Date Type Department Care Team (Late st Contact Info) Description 07/01/2022 Refill [facility] [address] [address] Jayshree Qureshi, TICKETING AGENT-NEGRITO [address] [place] [address] Moderate persistent asthma without complication Social History Tobacco Use Types Packs/Day Years [...] as of this encounter Visit Diagnoses Diagnosis Moderate persistent asthma without complication documented in this encounter Care Teams Posting Machine Operator Relationship Specialty Start Date End Date Tab Barfield DO [address] [place] [address] PCP - General Internal Medicine 12/15/20 documented as of this encounter
--- OUTSIDE RECORDS SUMMARY | 2025-04-24 17:04 | XMS_ITS | CCD ---
Author Organization [facility] Care Team Providers Care Escalator Installer Name Role Phone Tab Barfield DO Primary [...] Care Provider MD Jamar Wray Attending Provider Jamar Wray Admitting Unavailable Jamar Wray Attending Unavailable Tab Barfield Primary Care Unavailable Tab Barfield DO Primary Care Provider Unavailable Primary Care Provider Unavailjudy e VIVEK DHILLON Attending Unavailable GABE BANERJEE Attending Unavailable TAB BARFIELD Primary Care Unavailable TAB BARFIELD Primary Care Unavailable Tab Barfield DO Primary Care Provider Gabe Banerjee MD Attending Provider [phone] Tab Barfield DO Attending Provider Allergies Allergy Classification Reported Allergen(s) Allergy Type Date of Onset Reaction(s) Facility (10 sources) Penicillins; Translations: [PENICILLINS] Drug Allergy 12-09-19 18 Swelling [facility] (1 source) Penicillins Drug allergy (disorder) 07-11-20 13 [facility] Repository (3 sources) Penicillin Drug Allergy Unknown [facility] Other (16 sources) Penicillins (Antibiotic) Drug allergy Unknown [facility] Other (16 sources) Substance with penicillin structure and antibacterial mechanism of action (substance) Drug allergy Unknown [facility] Other (3 sources) patient allergy list reviewed by nurse or physicia Propensity to adverse reactions 12-20-19 19 Comment:Done [facility] Other (3 sources) Allergies Reconciled Propensity to adverse reactions Unknown [facility] Other (1 source) Penicillins Drug allergy (disorder) 06-22-20 23 [facility] Repository (2 sources) Penicillins Drug Allergy 12-09-19 18 Rash, Swelling, Unknown [facility] (2 sources) Penicillins Drug Allergy 12-09-19 18 Swelling [facility] Medications Current Medications Medication Drug Class(es) Dates Sig (Normalized) Sig (Original) [id number] 200 actuat albuterol 0.09 mg/actuat metered dose inhaler (12 sources) beta2-Adrenergic Agonist Start: 12-22-2023 take 1 puff(s) by inhalation every six hours as needed for wheezing Start: 12-22-2023 take 1 puff(s) by in halation every six hours Albuterol Sulfate Active 2 PUFF INHALATION Every 6 hours 17 90 December 22, 2023 12:00am Start: 05-06-2021 take 2 puff(s) by in halation every six hours as needed albuterol HFA (PROVENTIL HFA, VENTOLIN HFA) 90 mcg/actuation inhaler Inhale 2 Puffs as instructed every 6 hours as needed. 05/06/2021 Active Comment on above: Inhale 2 Puffs as in structed every 6 hours as needed. albuterol 0.833 mg/ml / ipratropium bromide 0.167 mg/ml inhalation solution (8 sources) Anticholinergic, beta2-Adrenergic Agonist Start: 02-26-20 ipratropium-albut cristino (DUONEB) 0.5 mg-3 mg(2.5 mg base)/3 mL nebu Inhale 3 mL as instructed. 02/25/2021 Active Comment on above: Inhale 3 mL as instr ucted. Albuterol Sulfate 90 mcg/actuation HFA aerosol inhaler (1 source) Start: 12-22-19 take 1 puff(s) by inhalation every six hours as needed for wheezing Albuterol Sulfate 90 mcg/actuation HFA aerosol inhaler Active 2 PUFF INHALATION Every 6 hours as needed for shortness of breath or wheezing December 22, 2023 12:00am amLODIPine 10 mg oral tablet (20 sources) Dihydropyridine Calcium Channel Michael Start: 04-23-20 End: 05-28-20 24 amLODIPine (Norvasc) 10 MG tablet 02/25/2025 Active Start: 04-18-2017 End: 04-23-2024 amLODIPine (NORVASC) 5 mg ta blet 09/15/2017 Active betamethasone 0.5 mg/ml topical cream (2 sources) Corticosteroid Start: 03-25-2025 betamethasone dipropionate 0.05 % cream Indications: Prurigo nodularis Apply to affected areas, up to twice a day when flared, do not use one the face, groin, or underarms, 30 day supply 15 g 11 03/25/2025 Active Contour Test - (20 sources) Start: 12-12-2022 Contour Test - Use to test home BS qd In Vitro daily for 30 days December, Active escitalopram 10 mg oral tablet (20 sources) Serotonin Reuptake Inhibitor Start: 01-01-2024 End: 12-23-2024 take 1 tablet by mouth once daily at bedtime Start: 03-01-2020 End: 01-01-2024 take 1 tablet by mouth once daily at bedtime escitalopram oxalate (LEXAPRO) 10 mg tablet Take 10 mg by mouth daily at bedtime. 03/01/2020 Active Comment on above: Take 10 mg by mouth daily at bedtime. Fish Oils (20 sources) Fish Oil Active 60 actuat fluticasone propionate 0.5 mg/actuat / salmeterol 0.05 mg/actuat dry powder inhaler (20 sources) Corticosteroid, beta2-Adrenergic Agonist Start: 03-06-2025 take 1 dose by mouth twice daily Fluticasone-Salme terol 500-50 MCG/ACT aerosol powder INHALE 1 DOSE BY MOUTH TWICE DAILY FOR 30 DAYS 03/06/2025 Active Start: 09-12-2024 Start: 09-12-2024 Fluticasone Pr opion-Salmeterol 500-50 mcg/dose blister with device Active 1 INH INHALATION Twice daily 60 September 12, 2024 8:38pm Start: 09-12-2024 End: 09-12-2024 Fluticasone Propion-Salmeter ol 500-50 mcg/dose blister with device Discontinued 1 INH INHALATION Twice daily 60 September 12, 2024 8:37pm September 12, 2024 8:39pm Start: 06-22-2023 End: 09-12-2024 Fluticasone Propion-Salmeter ol 500-50 mcg/dose Blister With Device Discontinued 1 INH INHALATION Twice daily June 22, 2023 1:00am September 12, 2024 8:38pm Start: 06-22-2023 Fluticasone Pr opion-Salmeterol Active 1 INH INHALATION Twice daily June 22, 2023 1:00am Start: 06-22-2023 Fluticasone Pr opion-Salmeterol Active 1 INH INHALATION Twice daily June 22, 2023 12:00am Start: 12-20-2022 take 1 puff(s) by in halation twice daily Advair Diskus 500-50 MCG/ACT 1 puff Inhalation Twice a day December, Active Start: 11-27-2021 End: 04-22-2025 take 1 dose by mouth twice daily fluticasone-salmetero l (ADVAIR, WIXELA) 250-50 mcg/dose inhaler INHALE 1 DOSE BY MOUTH TWICE DAILY 11/27/2021 04/22/2025 Discontinued (Course of therapy completed) Start: 11-27-2021 take 1 dose by mouth twice annemarie ly fluticasone-salmeterol (ADVAIR, WIXELA) 250-50 mcg/dose inhaler INHALE 1 DOSE BY MOUTH TWICE DAILY 11/27/2021 Active Start: 11-27-2021 take 1 dose by mouth twice annemarie ly fluticasone-salmeterol (ADVAIR, WIXELA) 250-50 mcg/dose inhaler INHALE 1 DOSE BY MOUTH TWICE DAILY 0 11/27/2021 Active Comment on above: INHALE 1 DOSE BY MAIKOL TH TWICE DAILY 30 actuat fluticasone furoate 0.1 mg/actuat / umeclidinium 0.0625 mg/actuat / vilanterol 0.025 mg/actuat dry powder inhaler (1 source) Anticholinergic, Corticosteroid, beta2-Adrenergic Agonist Start: 04-22-20 take 1 puff(s) by inhalation once daily fluticasone-umeclid in-vilanter (TRELEGY ELLIPTA) 100-62.5-25 mcg inhalation powder Inhale 1 puff as instructed once daily. 1 each 04/22/2025 Active levoFLOXacin 500 mg oral tablet (7 sources) Quinolone Antimicrobial Start: 06-20-20 23 take 1 tablet by mouth every twenty-four hours levoFLOXacin 500 MG 1 tablet Orally Once a day for 7 days Jun, Active losartan potassium 100 mg oral tablet (20 sources) Angiotensin 2 Receptor Michael Start: 04-18-20 End: 02-26-20 25 losartan (COZAAR) 100 mg tablet 09/17/2017 Active montelukast 10 mg oral tablet (20 sources) Leukotriene Receptor Antagonist Start: 11-29-19 25 take 1 tablet by mouth once daily Start: 07-15-2021 End: 11-28-2024 montelukast (SINGULAIR) 10 m g tablet 03/05/2022 Active Multiple Vitamin (Multi-Vitamin) tablet (2 sources) take 1 tablet by mouth in the morning Multiple Vitamin (Multi-Vitamin) tablet Take 1 tablet by mouth in the morning. Active Multivitamin preparation (20 sources) Start: 04-18-2017 take 1 tablet by mouth once daily Multivitamin Active 1 TAB PO Daily April 18, 2017 12:00am Start: 04-18-2017 take 1 tablet by maikol th once daily Multivitamin Active 1 TAB PO Daily April 17, 2017 11:00pm Multivitamin Act [place] Multivitamin Tablet (2 sources) Start: 04-18-2017 take 1 tablet by mouth once da aba Start: 04-18-2017 take 1 tablet by maikol th once daily Multivitamin Tablet Active 1 TAB PO Daily April 18, 2017 12:00am perflutren lipid microspheres 1.3 mL in NaCl (PF) 0.9% 10 mL injection (DEFINITY) (5 sources) Start: 01-26-2023 End: 04-26-2024 perflutren lipid microspheres 1.3 mL in NaCl (PF) 0.9% 10 mL injection (DEFINITY) pravastatin sodium 80 mg oral tablet (20 sources) HMG-CoA Reductase Inhibitor Start: 01-28-2025 take 1 tablet by mouth once daily Start: 04-18-2017 End: 01-28-2025 pravastatin (PRAVACHOL) 80 m g tablet 11/28/2017 Active take 1 tablet by [...] capsule (20 sources) alpha-Adrenergic Michael Start: 01-10-2023 End: 12-23-2024 tamsulosin (FLOMAX) 0.4 mg 01/10/2023 Active Start: 07-15-2021 End: 03-25-2024 take 1 capsule by mouth once daily Tamsulosin 0.4 mg capsule Discontinued 0.4 MG PO Daily January 09, 2024 12:59pm March 25, 2024 5:13pm Start: 11-21-2017 End: 04-05-2022 tamsulosin ER (FLOMAX) 0.4 m g cp24 twice daily. 0 11/21/2017 04/05/2022 Discontinued (Discontinued by Patient) take 1 capsule by mo uth every twenty-four hours in the morning tamsulosin (Flomax) 0.4 MG 24 hr capsule Take 0.4 mg by mouth in the morning and 0.4 mg before bedtime. Active Comment on above: twice daily. Turmeric Root Extract 500 mg capsule (2 sources) Start: 12-23-2024 take 1 capsule by mo uth once daily Start: 12-23-2024 take 1 capsule by mo uth once daily Turmeric Root Extract 500 mg capsule Active 500 MG PO Daily December 23, 2024 12:00am ubidecarenone 75 mg oral cap nehemias (4 sources) Start: 12-22-2023 Completed/Discontinued Medications Medication Drug Class(es) Dates Sig (Normalized) Sig (Original) Albuterol-Budesonid e (2 sources) Start: 12-22-2023 End: 12-22-2023 Albuterol-Budesonide Discontinued 2 INH INHALATION Four times daily 21.4 December 22, 2023 12:00am December 22, 2023 5:29pm Needs 2 inhalers Start: 12-22-2023 Albuterol-[place] sonide Active 2 INH INHALATION Four times daily 21.4 December 22, 2023 12:00am Needs 2 inhalers Albuterol-Budesonide (1 source) Start: 12-22-2023 End: 12-22-2023 Albuterol-Budesonide 90-80 mcg/actuation HFA aerosol inhaler Discontinued 2 INH INHALATION Four times daily as needed for shortness of breath 21.4 December 22, 2023 12:00am December 22, 2023 5:29pm Needs 2 inhalers Albuterol-Budesonide 90-80 mcg/actuation HFA aerosol inhaler (1 source) Start: 12-22-2023 End: 12-22-2023 Albuterol-Budesonide 90-80 mcg/actuation HFA aerosol inhaler Discontinued 2 INH INHALATION Four times daily as needed for shortness of breath 21.4 90 December 22, 2023 12:00am December 22, 2023 5:29pm Needs 2 inhalers 24 hr buPROPion hydrochloride 150 mg extended release oral tablet (20 sources) Aminoketone Start: 12-21-2023 End: 04-23-2024 take 1 tablet by mouth once daily in the morning Bupropion Hcl 150 mg tablet extended release 24 hr Discontinued 150 MG PO Every morning December 21, 2023 12:00am April 23, 2024 4:01pm Start: 04-18-2017 End: 07-15-2021 take 1 tablet by mouth once daily Bupropion Hcl 300 mg tablet extended release 24 hr Discontinued 300 MG PO Daily April 18, 2017 12:00am July 15, 2021 10:38am buPROPion HCl 15 0 MG 1 tablet every morning Orally Once a day Active Chlorpheniramine (3 sources) Histamine-1 Receptor Antagonist chlorpheniramine maleate (CHLOR-TABLET ORAL) Take by mouth. 0 Active Comment on above: Take by mouth. diclofenac sodium 75 mg delayed release oral tablet (20 sources) Nonsteroidal Anti-inflammatory Drug Start: End: take 1 tablet by mouth twice daily Diclofenac Sodium 75 mg tablet,delayed release (DR/EC) Discontinued 75 MG PO Twice daily December 21, 2023 12:00am April 23, 2024 3:50pm Start: 04-18-2017 End: 01-02-2019 take 2 tablets by mouth once daily Diclofenac Sodium 75 mg tablet,delayed release (DR/EC) Discontinued 150 MG PO Daily April 18, 2017 12:00am January 02, 2019 2:24pm Start: 04-18-2017 End: 01-02-2019 take 150 mg by mouth once daily Diclofenac Sodium Discontinued 150 MG PO Daily April 18, 2017 12:00am January 02, 2019 2:24pm take 1 tablet by maikol th every twelve hours Diclofenac Sodium 75 MG 1 tablet with food or milk Orally Twice a day Active Fluticasone Propion-Salmeterol 500-50 mcg/dose blister with device (1 source) Start: 09-12-2024 End: 09-12-2024 Fluticasone Propion-Salmeterol 500-50 mcg/dose blister with device Discontinued 1 INH INHALATION Twice daily 60 30 September 12, 2024 8:37pm September 12, 2024 8:39pm metFORMIN hydrochloride 500 mg oral tablet (20 sources) Biguanide Start: 05-09-2023 End: 02-25-2025 take 1 tablet by mouth once daily Metformin 500 mg tablet Discontinued 500 MG PO Daily June 22, 2023 1:00am March 06, 2024 3:41pm mirtazapine 7.5 mg oral tablet (20 sources) Start: 03-25-2020 End: 04-23-2024 take 1 tablet by mouth once daily Mirtazapine 7.5 mg tablet Discontinued 7.5 MG PO Daily July 15, 2021 1:00am January 09, 2024 1:00pm Comment on above: Take 7.5 mg by mouth daily at bedtime. multivitamin tablet (3 sources) take 1 tablet by mouth once daily multivitamin tablet Take 1 tablet by mouth once daily. 0 Active Comment on above: Take 1 tablet by maikol th once daily. [place] 5-Inb-Pel-Fish Oil (Fish Oil) 1,000 mg (120 mg-180 mg) Capsule (5 sources) Start: 04-18-2017 End: 01-02-2019 [place] 4-Ubl-Lcm-Fish Oil (Fish Oil) 1,000 mg (120 mg-180 mg) Capsule Discontinued 1200 MG PO Daily April 18, 2017 12:00am January 02, 2019 2:24pm Start: 04-18-2017 End: 01-02-2019 [place] 7-Ykm-Gvh-Fish Oil (Fi sh Oil) 1,000 mg (120 [...] on above: TAKE 1 TABLET BY MAIKOL TH 2 HOURS BEFORE BEDTIME Turmeric extract (11 sources) Start: 06-22-2023 End: 12-21-2023 take 1 capsule by mouth once daily Turmeric 400 mg Capsule Discontinued 400 MG PO Daily June 22, 2023 1:00am December 21, 2023 9:07am Start: 06-22-2023 End: 12-21-2023 take 400 mg [...] or lung] Onset: 1 Chronic Cancer of bronchus; lung (2 sources) History of malignant neoplasm of thoracic cavity structure; Translations: [Personal history of other malignant neoplasm of bronchus and lung] 04-22-2025 Episodic Cancer of prostate (20 sources) Malignant tumor of prostate; Translations: [Malignant neoplasm of prostate] Onset: 8 Chronic Comment on above: Dx: [place] 4+4, grp - 2017, EBRT - 03/2018, ADT 18mo Cancer of rectum and anus (20 sources) [...] as uncontrolled] Chronic Disorders of lipid metabolism (13 sources) Mixed hyperlipidemia; Translations: [Mixed hyperlipidemia] Onset: [...] arthropathy, ankle and foot] Onset: 5 Chronic Malaise and fatigue (6 sources) Malaise and fatigue; Translations: [Other malaise and fatigue] Onset: 8 04-23-2024 Episodic Miscellaneous mental health disorders (3 sources) Primary [...] Long-term current use of inhaled steroid; Translations: [long term care social worker (current) use of inhaled steroids] Episodic Other and unspecified benign neoplasm (20 sources) Tubulovillous adenoma of rectum; Translations: [Benign neoplasm of rectum] Episodic Other and unspecified benign neoplasm (3 sources) Benign neoplasm of colon; Translations: [Benign neoplasm of colon] Episodic Other and unspecified benign neoplasm (5 sources) History of polyp of colon; Translations: [Personal history of colonic polyps] 04-18-2017 Episodic Comment on above: Problem List clean-u p per request of Phys. EHR Cmte Other diseases of kidney and ureters (3 [...] the digestive system] Episodic Other gastrointestinal disorders (5 sources) Dysphagia; Translations: [Dysphagia, unspecified] 04-18-2017 Episodic Comment on above: Problem List clean-u p per request of Phys. 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] 03-25-2025 Episodic Other injuries and conditions due to external [...] (3 sources) Hypoxemia; Translations: [Hypoxemia] Episodic Other lower respiratory disease (3 sources) Nodule of lung; Translations: [Solitary pulmonary nodule] 01-02-2024 Episodic Comment on above: CT: 6mm LLL, 4mm RML - 12/2023,CT: 7mm LLL - 06/2024,CT: 4mm RML, 6mm LLL - 12/2024 Other lower respiratory disease (2 sources) Restrictive lung disease; Translations: [Other disorders of lung] 04-23-2024 Episodic Other lower respiratory disease (1 source) Other disorders of lung; Translations: [Other diseases of lung, not elsewhere classified] 12-23-2024 Episodic Other lower respiratory disease (2 sources) Multiple nodules of lung; Translations: [Other nonspecific abnormal finding of lung field] 04-22-2025 Episodic Other lower respiratory disease (3 sources) Dyspnea on exertion; Translations: [Other forms of dyspnea] 04-22-2025 Episodic Other non-traumatic joint disorders (3 sources) 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; 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, ankle and foot] Onset: 4 Chronic Other nutritional; endocrine; and metabolic disorders (5 sources) Obesity; Translations: [Obesity, unspecified] 04-23-2024 Chronic Other nutritional; endocrine; and metabolic disorders (3 sources) Simple obesity ; Translations: [Other obesity due to excess calories] Onset: 7 Chronic Other nutritional; endocrine; and metabolic disorders (3 sources) Obese class I; Translations: [Body mass index (BMI) 32.0-32.9, adult] Onset: 7 Chronic Other nutritional; endocrine; and metabolic disorders (1 source) Obesity, unspecified; Translations: [Obesity, unspecified] 12-23-2024 Chronic Other skin disorders (2 sources) Inflamed seborrheic keratosis; Translations: [Inflamed seborrheic keratosis] 03-25-2025 Episodic Pleurisy; pneumothorax; pulmonary collapse (4 sources) Pleural effusion, not elsewhere classified; Translations: [Pleural effusion] Onset: 2 Episodic Pulmonary heart disease (20 sources) Pulmonary hypertension; Translations: [Pulmonary hypertension, unspecified] Chronic Residual codes; unclassified (20 sources) Obstructive sleep apnea syndrome; Translations: [Obstructive sleep apnea (adult) (pediatric)] 12-21-2023 Chronic Residual codes; unclassified (10 sources) Obstructive sleep apnea (adult) (pediatric); Translations: [...] to health] Onset: 0 Episodic Substance-related disorders (7 sources) Tobacco user; Translations: [Nicotine dependence, cigarettes, in remission] 04-07-2025 Chronic Unclassified (3 sources) Long-term current use of drug therapy; Translations: [Long-term (current) use of other medications] Onset: 6 Unclassified (3 sources) Eosinophilia, unspecified; Translations: [Eosinophilia, unspecified] Unclassified (1 source) Encounter for screening for malignant neoplasm of colon; Translations: [Encounter for screening for malignant neoplasm of colon] Onset: 3 Viral infection (2 sources) Disease caused by 2019-nCoV; Translations: [COVID-19] 07-16-2024 Episodic Past or Other Problems Problem Classification Problem [...] of right calcaneus, sequela] Resolved: 0 Episodic Other and unspecified benign neoplasm (3 [...] vaccination and inoculation, Influenza] Onset: 7 Episodic Results Test Name Value Interpretation Reference Range Facility No Panel InformationOrdered By: Gbae Banerjee on 03-28-2025 Prostate Specific Antigen 0.20 ng/mL <2.60 [facility] Comment on above: Total PSA test metho dology used is the Electrochemiluminescence Immunoassay by [facility] [employer]. Total PSA values by differing methodologies cannot be interchanged. PSA SerPl-mCncon 03-28-2025 Prostate specific Ag [Mass/Vol] 0.20 ng/mL Normal <2.60 [facility] Comment on above: Order Comment: Speci men Type: BLOOD SPECIMEN Ordering Facility: [facility] Address: [address] [place] [address] Result Comment: Tota l PSA test methodology used is the Electrochemiluminescence Immunoassay by [employer] [employer]. Total PSA values by differing methodologies cannot be interchanged. Performed By: #### 2 [id number] #### [facility] CLIA [id number] [address] [place] [address] [place] No Panel Informationon 03-20 Prostate Specific Antigen 0.21 ng/mL <2.60 [facility] Comment on above: Total PSA test metho dology used is the Electrochemiluminescence Immunoassay by [facility]. Total PSA values by differing methodologies cannot be interchanged. Glucose Glucometer (BldC) [M ass/Vol]Ordered By: Jamar Wray on 06-22-2023 Glucose [Mass/Vol] 142 mg/dL [facility] Comment on above: Random Glucose Refer ence Range is dependent on time and content of last meal. Glucose of more than 200 mg/dL in a nonstressed, ambulatory subject supports the diagnosis of Diabetes Mellitus. Glucose Poct Glucometerson 1 1-09-2023 Commemt1 Glu2: Cleaned Meter Normal [facility] Comment on above: Result Comment: PERF ORMED BY: [facility] [place] [address] PATHOLOGIST HYPERBARIC TECHNOLOGIST KALIN ALCANTARA M.D. Performed By: #### G ADRIANA #### Point of Care testing , Glucose [Mass/Vol] 142 mg/dL Normal [facility] Comment on above: Result Comment: [place] Glucose Reference Range is dependent on time and content of last meal. Glucose of more than 200 mg/dL in a nonstressed, ambulatory subject supports the diagnosis of Diabetes Mellitus. Performed By: #### G LUCOLEEN #### Point of Care testing , Chandan 06-22-2023 L ------ Specimen: [id number] Received: 06/22/23 Status: RONEL Blaise Num: [id number] Spec Type: Surgical Subm Dr: Jamar Wray MD Tissues: A Colon Biopsy (ASC POLYP) B Colon Biopsy (TRANSVERSE POLYP) C Colon Biopsy (DESC POLYP) Procedures: HE/6, Gross/Micro L4/3 Age/ Patient Sex Location Account Attending Physician Jacinta Robles 77/M [id number] Jamar Wray MD SPEC NUM: [id number] RECD: 06/22/23 STATUS: RONEL WELSH NUM: [id number] ROSET[place]: 06/22/23 DR: Jamar Wray MD ENTERED: 06/22/[address] [facility] [address]: [place] TYPE: Surgical DEPT: S ORDERED: HE/6, Gross/Micro [...] patient's name, date of and transverse Specimen: [id number] Received: 06/22/23 Status: RONEL Welsh Num: [id number] Spec Type: Surgical Subm Dr: Jamar Wray MD Tissues: A Colon Biopsy (ASC POLYP) B Colon Biopsy (TRANSVERSE POLYP) C Colon Biopsy (DESC POLYP) Procedures: /6, Gross/Micro L4/3 Patient: Jacinta Robles [id number] (Continued) Specimen: [id number] Received: 06/22/23 (Continued) Gross Description (Continued) Signed (signature on file) Jose G Perdue MD 06/23/23 1616 Specimen: [id number] Received: 06/22/23 Status: RONEL Welsh Num: [id number] Spec Type: Surgical Subm Dr: Jamar Wray MD Tissues: A Colon Biopsy (ASC POLYP) B Colon Biopsy (TRANSVERSE POLYP) C Colon Biopsy (DESC POLYP) Procedures: HE/6, Gross/Micro L4/3 Patient: Jacinta Robles [id number] (Continued) Specimen: [id number] Received: 06/22/23-123 (Continued) Gross Description (Continued) polyps are two [...] microscopic examination confirms the diagnosis. CPT Codes 55625d5 Specimen: [id number] Received: 06/22/23 Status: RONEL Welsh Num: [id number] Spec Type: Surgical Subm Dr: Jamar Wray MD Tissues: A Colon Biopsy (ASC POLYP) B Colon Biopsy (TRANSVERSE POLYP) C Colon Biopsy (DESC POLYP) Procedures: HE/6, Gross/Micro L4/3 Patient: Jacinta Robles [id number] (Continued) Signed (signature on file) Jose G Perdue MD 06/23/23 1616 Normal [facility] No Panel InformationOrdered By: Jamar Wray on 06-22-2023 Bedside Glucose Comment Glu2: cleaned meter [facility] AMMONIA BLDon 04-27-2023 Ammonia (P) [Moles/Vol] 39 umol/L 16 - 60 umol/L [facility] Ammonia (P) [Moles/Vol] 11 umol/L Low 16 - 60 umol/L [facility] ARTERIAL BLOOD GASESon 04-27 Base deficit (BldA) [Moles/Vol] -7 mmol/L Low -2 - 0 mmol/L [facility] Calcium.ionized (Bld) [Mass/Vol] 1.26 mmol/L 1.08 - 1.30 mmol/L [facility] Calcium.ionized adjusted to pH 7.4 (BldA) [Moles/Vol] 1.21 mmol/L 1.08 - 1.30 mmol/L [facility] Carboxyhemoglobin (BldA) [Mass fraction] 0.2 % 0.0 - 2.0 % [facility] CO2 (Bld) [Partial pressure] 33 mm Hg Low 36 - 46 mm Hg [facility] CO2 adjusted to patient's actual temperature (Bld) [Partial pressure] 33 mmHg Low 36 - 46 mmHg [facility] Glucose [Mass/Vol] 139 mg/dL High 60 - 105 mg/dL [facility] HCO3 (Bld) [Moles/Vol] 17 mmol/L Low 22 - 26 mmol/L [facility] Hematocrit (Bld) [Volume fraction] 43.1 % 39.0 - 51.0 % [facility] Hemoglobin (Bld) [Mass/Vol] 14.0 g/dL 13.0 - 17.0 g/dL [facility] Lactate [Moles/Vol] 4.4 mmol/L High 0.5 - 2. 2 mmol/L [facility] Methemoglobin (Bld) [Mass fraction] 1.2 % 0.0 - 1.5 % [facility] Oxygen (Bld) [Partial pressure] 107 mm Hg High 85 - 95 mm Hg [facility] Oxygen adjusted to patient's actual temperature (Bld) [Partial pressure] 107 mmHg High 85 - 95 mmHg [facility] Oxyhemoglobin (BldA) [Mass fraction] 96 % 95 - 98 % [facility] Patient Position 10 min. Recovery [facility] pH (Bld) 7.34 [pH] Low 7.35 - 7.45 [facility] pH adjusted to patient's actual temperature (Bld) 7.34 Low 7.35 - 7.45 [facility] Potassium [Moles/Vol] 4.3 mmol/L 3.5 - 5.0 mmol/L [facility] Sodium [Moles/Vol] 144 mmol/L 136 - 144 mmol/L [facility] Base deficit (BldA) [Moles/Vol] -7 mmol/L Low -2 - 0 mmol/L [facility] Calcium.ionized (Bld) [Mass/Vol] 1.21 mmol/L 1.08 - 1.30 mmol/L [facility] Calcium.ionized adjusted to pH 7.4 (BldA) [Moles/Vol] 1.19 mmol/L 1.08 - 1.30 mmol/L [facility] Carboxyhemoglobin (BldA) [Mass fraction] 1.4 % 0.0 - 2.0 % [facility] CO2 (Bld) [Partial pressure] 30 mm Hg Low 36 - 46 mm Hg [facility] CO2 adjusted to patient's actual temperature (Bld) [Partial pressure] 30 mmHg Low 36 - 46 mmHg [facility] Glucose [Mass/Vol] 131 mg/dL High 60 - 105 mg/dL [facility] HCO3 (Bld) [Moles/Vol] 16 mmol/L Low 22 - 26 mmol/L [facility] Hematocrit (Bld) [Volume fraction] 42.9 % 39.0 - 51.0 % [facility] Hemoglobin (Bld) [Mass/Vol] 14.0 g/dL 13.0 - 17.0 g/dL [facility] Lactate [Moles/Vol] 4.9 mmol/L High 0.5 - 2. 2 mmol/L [facility] Methemoglobin (Bld) [Mass fraction] 1.0 % 0.0 - 1.5 % [facility] Oxygen (Bld) [Partial pressure] 109 mm Hg High 85 - 95 mm Hg [facility] Oxygen adjusted to patient's actual temperature (Bld) [Partial pressure] 109 mmHg High 85 - 95 mmHg [facility] Oxyhemoglobin (BldA) [Mass fraction] 96 % 95 - 98 % [facility] Patient Position 3 min. Recovery [facility] pH (Bld) 7.36 [pH] 7.35 - 7.45 [facility] pH adjusted to patient's actual temperature (Bld) 7.36 7.35 - 7.45 [facility] Potassium [Moles/Vol] 4.1 mmol/L 3.5 - 5.0 mmol/L [facility] Sodium [Moles/Vol] 141 mmol/L 136 - 144 mmol/L [facility] Base deficit (BldA) [Moles/Vol] -5 mmol/L Low -2 - 0 mmol/L [facility] Calcium.ionized (Bld) [Mass/Vol] 1.24 mmol/L 1.08 - 1.30 mmol/L [facility] Calcium.ionized adjusted to pH 7.4 (BldA) [Moles/Vol] 1.21 mmol/L 1.08 - 1.30 mmol/L [facility] Carboxyhemoglobin (BldA) [Mass fraction] 1.0 % 0.0 - 2.0 % [facility] CO2 (Bld) [Partial pressure] 36 mm Hg 36 - 46 mm Hg [facility] CO2 adjusted to patient's actual temperature (Bld) [Partial pressure] 36 mmHg 36 - 46 mmHg [facility] Glucose [Mass/Vol] 146 mg/dL High 60 - 105 mg/dL [facility] HCO3 (Bld) [Moles/Vol] 20 mmol/L Low 22 - 26 mmol/L [facility] Hematocrit (Bld) [Volume fraction] 44.6 % 39.0 - 51.0 % [facility] Hemoglobin (Bld) [Mass/Vol] 14.5 g/dL 13.0 - 17.0 g/dL [facility] Lactate [Moles/Vol] 3.6 mmol/L High 0.5 - 2. 2 mmol/L [facility] Methemoglobin (Bld) [Mass fraction] 1.2 % 0.0 - 1.5 % [facility] Oxygen (Bld) [Partial pressure] 69 mm Hg Low 85 - 95 mm Hg [facility] Oxygen adjusted to patient's actual temperature (Bld) [Partial pressure] 69 mmHg Low 85 - 95 mmHg [facility] Oxyhemoglobin (BldA) [Mass fraction] 91 % Low 95 - 98 % [facility] Patient Position 100W MAX [facility] pH (Bld) 7.35 [pH] 7.35 - 7.45 [facility] pH adjusted to patient's actual temperature (Bld) 7.35 7.35 - 7.45 [facility] Potassium [Moles/Vol] 4.9 mmol/L 3.5 - 5.0 mmol/L [facility] Sodium [Moles/Vol] 142 mmol/L 136 - 144 mmol/L [facility] Base deficit (BldA) [Moles/Vol] -4 mmol/L Low -2 - 0 mmol/L [facility] Calcium.ionized (Bld) [Mass/Vol] 1.23 mmol/L 1.08 - 1.30 mmol/L [facility] Carboxyhemoglobin (BldA) [Mass fraction] 1.2 % 0.0 - 2.0 % [facility] CO2 (Bld) [Partial pressure] 36 mm Hg 36 - 46 mm Hg [facility] CO2 adjusted to patient's actual temperature (Bld) [Partial pressure] 36 mmHg 36 - 46 mmHg [facility] Glucose [Mass/Vol] 138 mg/dL High 60 - 105 mg/dL [facility] HCO3 (Bld) [Moles/Vol] 20 mmol/L Low 22 - 26 mmol/L [facility] Hematocrit (Bld) [Volume fraction] 43.2 % 39.0 - 51.0 % [facility] Hemoglobin (Bld) [Mass/Vol] 14.1 g/dL 13.0 - 17.0 g/dL [facility] Lactate [Moles/Vol] 2.9 mmol/L High 0.5 - 2. 2 mmol/L [facility] Methemoglobin (Bld) [Mass fraction] 0.4 % 0.0 - 1.5 % [facility] Oxygen (Bld) [Partial pressure] 74 mm Hg Low 85 - 95 mm Hg [facility] Oxygen adjusted to patient's actual temperature (Bld) [Partial pressure] 74 mmHg Low 85 - 95 mmHg [facility] Oxyhemoglobin (BldA) [Mass fraction] 93 % Low 95 - 98 % [facility] pH (Bld) 7.37 [pH] 7.35 - 7.45 [facility] pH adjusted to patient's actual temperature (Bld) 7.37 7.35 - 7.45 [facility] Potassium [Moles/Vol] 4.7 mmol/L 3.5 - 5.0 mmol/L [facility] Sodium [Moles/Vol] 142 mmol/L 136 - 144 mmol/L [facility] Base deficit (BldA) [Moles/Vol] -7 mmol/L Low -2 - 0 mmol/L [facility] Calcium.ionized (Bld) [Mass/Vol] 1.21 mmol/L 1.08 - 1.30 mmol/L [facility] Calcium.ionized adjusted to pH 7.4 (BldA) [Moles/Vol] 1.18 mmol/L 1.08 - 1.30 mmol/L [facility] Carboxyhemoglobin (BldA) [Mass fraction] 0.9 % 0.0 - 2.0 % [facility] CO2 (Bld) [Partial pressure] 33 mm Hg Low 36 - 46 mm Hg [facility] CO2 adjusted to patient's actual temperature (Bld) [Partial pressure] 33 mmHg Low 36 - 46 mmHg [facility] Glucose [Mass/Vol] 142 mg/dL High 60 - 105 mg/dL [facility] HCO3 (Bld) [Moles/Vol] 17 mmol/L Low 22 - 26 mmol/L [facility] Hematocrit (Bld) [Volume fraction] 44.2 % 39.0 - 51.0 % [facility] Hemoglobin (Bld) [Mass/Vol] 14.4 g/dL 13.0 - 17.0 g/dL [facility] Lactate [Moles/Vol] 4.6 mmol/L High 0.5 - 2. 2 mmol/L [facility] Methemoglobin (Bld) [Mass fraction] 1.2 % 0.0 - 1.5 % [facility] Oxygen (Bld) [Partial pressure] 96 mm Hg High 85 - 95 mm Hg [facility] Oxygen adjusted to patient's actual temperature (Bld) [Partial pressure] 96 mmHg High 85 - 95 mmHg [facility] Oxyhemoglobin (BldA) [Mass fraction] 95 % 95 - 98 % [facility] Patient Position 1 min. Recovery [facility] pH (Bld) 7.34 [pH] Low 7.35 - 7.45 [facility] pH adjusted to patient's actual temperature (Bld) 7.34 Low 7.35 - 7.45 [facility] Potassium [Moles/Vol] 4.3 mmol/L 3.5 - 5.0 mmol/L [facility] Sodium [Moles/Vol] 141 mmol/L 136 - 144 mmol/L [facility] Base deficit (BldA) [Moles/Vol] -4 mmol/L Low -2 - 0 mmol/L [facility] Calcium.ionized (Bld) [Mass/Vol] 1.22 mmol/L 1.08 - 1.30 mmol/L [facility] Calcium.ionized adjusted to pH 7.4 (BldA) [Moles/Vol] 1.20 mmol/L 1.08 - 1.30 mmol/L [facility] Carboxyhemoglobin (BldA) [Mass fraction] 1.2 % 0.0 - 2.0 % [facility] CO2 (Bld) [Partial pressure] 35 mm Hg Low 36 - 46 mm Hg [facility] CO2 adjusted to patient's actual temperature (Bld) [Partial pressure] 35 mmHg Low 36 - 46 mmHg [facility] Glucose [Mass/Vol] 138 mg/dL High 60 - 105 mg/dL [facility] HCO3 (Bld) [Moles/Vol] 20 mmol/L Low 22 - 26 mmol/L [facility] Hematocrit (Bld) [Volume fraction] 42.0 % 39.0 - 51.0 % [facility] Hemoglobin (Bld) [Mass/Vol] 13.7 g/dL 13.0 - 17.0 g/dL [facility] Lactate [Moles/Vol] 1.8 mmol/L 0.5 - 2. 2 mmol/L [facility] Methemoglobin (Bld) [Mass fraction] 0.4 % 0.0 - 1.5 % [facility] Oxygen (Bld) [Partial pressure] 71 mm Hg Low 85 - 95 mm Hg [facility] Oxygen adjusted to patient's actual temperature (Bld) [Partial pressure] 71 mmHg Low 85 - 95 mmHg [facility] Oxyhemoglobin (BldA) [Mass fraction] 93 % Low 95 - 98 % [facility] Patient Position 60W [facility] pH (Bld) 7.38 [pH] 7.35 - 7.45 [facility] pH adjusted to patient's actual temperature (Bld) 7.38 7.35 - 7.45 [facility] Potassium [Moles/Vol] 4.5 mmol/L 3.5 - 5.0 mmol/L [facility] Sodium [Moles/Vol] 142 mmol/L 136 - 144 mmol/L [facility] Base deficit (BldA) [Moles/Vol] -5 mmol/L Low -2 - 0 mmol/L [facility] Calcium.ionized (Bld) [Mass/Vol] 1.16 mmol/L 1.08 - 1.30 mmol/L [facility] Calcium.ionized adjusted to pH 7.4 (BldA) [Moles/Vol] 1.15 mmol/L 1.08 - 1.30 mmol/L [facility] Carboxyhemoglobin (BldA) [Mass fraction] 1.4 % 0.0 - 2.0 % [facility] CO2 (Bld) [Partial pressure] 33 mm Hg Low 36 - 46 mm Hg [facility] CO2 adjusted to patient's actual temperature (Bld) [Partial pressure] 33 mmHg Low 36 - 46 mmHg [facility] Glucose [Mass/Vol] 134 mg/dL High 60 - 105 mg/dL [facility] HCO3 (Bld) [Moles/Vol] 19 mmol/L Low 22 - 26 mmol/L [facility] Hematocrit (Bld) [Volume fraction] 41.0 % 39.0 - 51.0 % [facility] Hemoglobin (Bld) [Mass/Vol] 13.3 g/dL 13.0 - 17.0 g/dL [facility] Lactate [Moles/Vol] 1.2 mmol/L 0.5 - 2. 2 mmol/L [facility] Methemoglobin (Bld) [Mass fraction] 1.9 % High 0.0 - 1.5 % [facility] Oxygen (Bld) [Partial pressure] 75 mm Hg Low 85 - 95 mm Hg [facility] Oxygen adjusted to patient's actual temperature (Bld) [Partial pressure] 75 mmHg Low 85 - 95 mmHg [facility] Oxyhemoglobin (BldA) [Mass fraction] 93 % Low 95 - 98 % [facility] Patient Position 40W [facility] pH (Bld) 7.38 [pH] 7.35 - 7.45 [facility] pH adjusted to patient's actual temperature (Bld) 7.38 7.35 - 7.45 [facility] Potassium [Moles/Vol] 4.0 mmol/L 3.5 - 5.0 mmol/L [facility] Sodium [Moles/Vol] 142 mmol/L 136 - 144 mmol/L [facility] Base deficit (BldA) [Moles/Vol] -3 mmol/L Low -2 - 0 mmol/L [facility] Calcium.ionized (Bld) [Mass/Vol] 1.22 mmol/L 1.08 - 1.30 mmol/L [facility] Calcium.ionized adjusted to pH 7.4 (BldA) [Moles/Vol] 1.22 mmol/L 1.08 - 1.30 mmol/L [facility] Carboxyhemoglobin (BldA) [Mass fraction] 1.0 % 0.0 - 2.0 % [facility] CO2 (Bld) [Partial pressure] 34 mm Hg Low 36 - 46 mm Hg [facility] CO2 adjusted to patient's actual temperature (Bld) [Partial pressure] 34 mmHg Low 36 - 46 mmHg [facility] Glucose [Mass/Vol] 148 mg/dL High 60 - 105 mg/dL [facility] HCO3 (Bld) [Moles/Vol] 21 mmol/L Low 22 - 26 mmol/L [facility] Hematocrit (Bld) [Volume fraction] 41.3 % 39.0 - 51.0 % [facility] Hemoglobin (Bld) [Mass/Vol] 13.5 g/dL 13.0 - 17.0 g/dL [facility] Lactate [Moles/Vol] 0.9 mmol/L 0.5 - 2. 2 mmol/L [facility] Methemoglobin (Bld) [Mass fraction] 0.6 % 0.0 - 1.5 % [facility] Oxygen (Bld) [Partial pressure] 92 mm Hg 85 - 95 mm Hg [facility] Oxygen adjusted to patient's actual temperature (Bld) [Partial pressure] 92 mmHg 85 - 95 mmHg [facility] Oxyhemoglobin (BldA) [Mass fraction] 96 % 95 - 98 % [facility] Patient Position Sitting Baseline [facility] pH (Bld) 7.40 [pH] 7.35 - 7.45 [facility] pH adjusted to patient's actual temperature (Bld) 7.40 7.35 - 7.45 [facility] Potassium [Moles/Vol] 4.1 mmol/L 3.5 - 5.0 mmol/L [facility] Sodium [Moles/Vol] 140 mmol/L 136 - 144 mmol/L [facility] Base deficit (BldA) [Moles/Vol] -3 mmol/L Low -2 - 0 mmol/L [facility] Calcium.ionized (Bld) [Mass/Vol] 1.23 mmol/L 1.08 - 1.30 mmol/L [facility] Calcium.ionized adjusted to pH 7.4 (BldA) [Moles/Vol] 1.22 mmol/L 1.08 - 1.30 mmol/L [facility] Carboxyhemoglobin (BldA) [Mass fraction] 0.6 % 0.0 - 2.0 % [facility] CO2 (Bld) [Partial pressure] 35 mm Hg Low 36 - 46 mm Hg [facility] CO2 adjusted to patient's actual temperature (Bld) [Partial pressure] 35 mmHg Low 36 - 46 mmHg [facility] Glucose [Mass/Vol] 145 mg/dL High 60 - 105 mg/dL [facility] HCO3 (Bld) [Moles/Vol] 21 mmol/L Low 22 - 26 mmol/L [facility] Hematocrit (Bld) [Volume fraction] 42.3 % 39.0 - 51.0 % [facility] Hemoglobin (Bld) [Mass/Vol] 13.8 g/dL 13.0 - 17.0 g/dL [facility] Lactate [Moles/Vol] 1.0 mmol/L 0.5 - 2. 2 mmol/L [facility] Methemoglobin (Bld) [Mass fraction] 0.9 % 0.0 - 1.5 % [facility] Oxygen (Bld) [Partial pressure] 75 mm Hg Low 85 - 95 mm Hg [facility] Oxygen adjusted to patient's actual temperature (Bld) [Partial pressure] 75 mmHg Low 85 - 95 mmHg [facility] Oxyhemoglobin (BldA) [Mass fraction] 94 % Low 95 - 98 % [facility] Patient Position 20W [facility] pH (Bld) 7.39 [pH] 7.35 - 7.45 [facility] pH adjusted to patient's actual temperature (Bld) 7.39 7.35 - 7.45 [facility] Potassium [Moles/Vol] 4.3 mmol/L 3.5 - 5.0 mmol/L [facility] Sodium [Moles/Vol] 141 mmol/L 136 - 144 mmol/L [facility] Base deficit (BldA) [Moles/Vol] -4 mmol/L Low -2 - 0 mmol/L [facility] Calcium.ionized (Bld) [Mass/Vol] 1.12 mmol/L 1.08 - 1.30 mmol/L [facility] Calcium.ionized adjusted to pH 7.4 (BldA) [Moles/Vol] 1.15 mmol/L 1.08 - 1.30 mmol/L [facility] Carboxyhemoglobin (BldA) [Mass fraction] 1.2 % 0.0 - 2.0 % [facility] CO2 (Bld) [Partial pressure] 26 mm Hg Low 36 - 46 mm Hg [facility] CO2 adjusted to patient's actual temperature (Bld) [Partial pressure] 26 mmHg Low 36 - 46 mmHg [facility] Glucose [Mass/Vol] 130 mg/dL High 60 - 105 mg/dL [facility] HCO3 (Bld) [Moles/Vol] 18 mmol/L Low 22 - 26 mmol/L [facility] Hematocrit (Bld) [Volume fraction] 38.4 % Low 39.0 - 51.0 % [facility] Hemoglobin (Bld) [Mass/Vol] 12.5 g/dL Low 13.0 - 17.0 g/dL [facility] Lactate [Moles/Vol] 1.0 mmol/L 0.5 - 2. 2 mmol/L [facility] Methemoglobin (Bld) [Mass fraction] 0.6 % 0.0 - 1.5 % [facility] Oxygen (Bld) [Partial pressure] 106 mm Hg High 85 - 95 mm Hg [facility] Oxygen adjusted to patient's actual temperature (Bld) [Partial pressure] 106 mmHg High 85 - 95 mmHg [facility] Oxyhemoglobin (BldA) [Mass fraction] 97 % 95 - 98 % [facility] Patient Position Supine [facility] pH (Bld) 7.46 [pH] High 7.35 - 7.45 [facility] pH adjusted to patient's actual temperature (Bld) 7.46 High 7.35 - 7.45 [facility] Potassium [Moles/Vol] 3.6 mmol/L 3.5 - 5.0 mmol/L [facility] Sodium [Moles/Vol] 139 mmol/L 136 - 144 mmol/L [facility] Base deficit (BldA) [Moles/Vol] -3 mmol/L Low -2 - 0 mmol/L [facility] Calcium.ionized (Bld) [Mass/Vol] 1.17 mmol/L 1.08 - 1.30 mmol/L [facility] Calcium.ionized adjusted to pH 7.4 (BldA) [Moles/Vol] 1.17 mmol/L 1.08 - 1.30 mmol/L [facility] Carboxyhemoglobin (BldA) [Mass fraction] 1.1 % 0.0 - 2.0 % [facility] CO2 (Bld) [Partial pressure] 34 mm Hg Low 36 - 46 mm Hg [facility] CO2 adjusted to patient's actual temperature (Bld) [Partial pressure] 34 mmHg Low 36 - 46 mmHg [facility] Glucose [Mass/Vol] 134 mg/dL High 60 - 105 mg/dL [facility] HCO3 (Bld) [Moles/Vol] 21 mmol/L Low 22 - 26 mmol/L [facility] Hematocrit (Bld) [Volume fraction] 37.9 % Low 39.0 - 51.0 % [facility] Hemoglobin (Bld) [Mass/Vol] 12.3 g/dL Low 13.0 - 17.0 g/dL [facility] Lactate [Moles/Vol] 1.0 mmol/L 0.5 - 2. 2 mmol/L [facility] Methemoglobin (Bld) [Mass fraction] 0.7 % 0.0 - 1.5 % [facility] Oxygen (Bld) [Partial pressure] 82 mm Hg Low 85 - 95 mm Hg [facility] Oxygen adjusted to patient's actual temperature (Bld) [Partial pressure] 82 mmHg Low 85 - 95 mmHg [facility] Oxyhemoglobin (BldA) [Mass fraction] 95 % 95 - 98 % [facility] Patient Position Baseline Supine [facility] pH (Bld) 7.40 [pH] 7.35 - 7.45 [facility] pH adjusted to patient's actual temperature (Bld) 7.40 7.35 - 7.45 [facility] Potassium [Moles/Vol] 3.7 mmol/L 3.5 - 5.0 mmol/L [facility] Sodium [Moles/Vol] 139 mmol/L 136 - 144 mmol/L [facility] CK CREATINE KINASEon 023 CK [Catalytic activity/Vol] 78 U/L 51 - 298 U/L [facility] CK [Catalytic activity/Vol] 65 U/L 51 - 298 U/L [facility] Gas and Carbon monoxide pane l (BldV)on 04-27-2023 Base Deficit, Venous -7 mmol/L Low -2 - 0 mmol/L [facility] Calcium.ionized (Bld) [Mass/Vol] 1.21 mmol/L 1.08 - 1.30 mmol/L [facility] Calcium.ionized adjusted to pH 7.4 (BldA) [Moles/Vol] 1.14 mmol/L 1.08 - 1.30 mmol/L [facility] Carboxyhemoglobin (BldV) [Mass fraction] 0.8 % 0.0 - 2.0 % [facility] CO2 (BldV) [Partial pressure] 40 mm[Hg] Low 42 - 55 mmHg [facility] CO2 adjusted to patient's actual temperature (BldV) [Partial pressure] 40 mmHg Low 42 - 55 mmHg [facility] Glucose [Mass/Vol] 133 mg/dL High 60 - 105 mg/dL [facility] HCO3 (Bld) [Moles/Vol] 19 mmol/L Low 24 - 28 mmol/L [facility] Hematocrit (Bld) [Volume fraction] 41.6 % 39.0 - 51.0 % [facility] Hemoglobin (Bld) [Mass/Vol] 13.5 g/dL 13.0 - 17.0 g/dL [facility] Lactate [Moles/Vol] 4.5 mmol/L High 0.5 - 2. 2 mmol/L [facility] Methemoglobin (Bld) [Mass fraction] 0.7 % 0.0 - 1.5 % [facility] Oxygen (BldV) [Partial pressure] 43 mm[Hg] 35 - 45 mmHg [facility] Oxygen adjusted to patient's actual temperature (BldV) [Partial pressure] 43 mmHg 35 - 45 mmHg [facility] Oxygen saturation in Venous blood 69 % 60 - 85 % [facility] Oxyhemoglobin (BldV) [Mass fraction] 68 % 60 - 85 % [facility] Patient Position 3 min. Recovery [facility] pH (BldV) 7.29 [pH] Low 7.32 - 7.42 [facility] pH adjusted to patient's actual temperature (BldV) 7.29 Low 7.32 - 7.42 [facility] Potassium [Moles/Vol] 3.9 mmol/L 3.5 - 5.0 mmol/L [facility] Sodium [Moles/Vol] 142 mmol/L 136 - 144 mmol/L [facility] Base Deficit, Venous -7 mmol/L Low -2 - 0 mmol/L [facility] Calcium.ionized (Bld) [Mass/Vol] 1.27 mmol/L 1.08 - 1.30 mmol/L [facility] Calcium.ionized adjusted to pH 7.4 (BldA) [Moles/Vol] 1.17 mmol/L 1.08 - 1.30 mmol/L [facility] Carboxyhemoglobin (BldV) [Mass fraction] 0.3 % 0.0 - 2.0 % [facility] CO2 (BldV) [Partial pressure] 48 mm[Hg] 42 - 55 mmHg [facility] CO2 adjusted to patient's actual temperature (BldV) [Partial pressure] 48 mmHg 42 - 55 mmHg [facility] Glucose [Mass/Vol] 135 mg/dL High 60 - 105 mg/dL [facility] HCO3 (Bld) [Moles/Vol] 20 mmol/L Low 24 - 28 mmol/L [facility] Hematocrit (Bld) [Volume fraction] 42.5 % 39.0 - 51.0 % [facility] Hemoglobin (Bld) [Mass/Vol] 13.9 g/dL 13.0 - 17.0 g/dL [facility] Lactate [Moles/Vol] 4.5 mmol/L High 0.5 - 2. 2 mmol/L [facility] Methemoglobin (Bld) [Mass fraction] 1.1 % 0.0 - 1.5 % [facility] Oxygen (BldV) [Partial pressure] 38 mm[Hg] 35 - 45 mmHg [facility] Oxygen adjusted to patient's actual temperature (BldV) [Partial pressure] 38 mmHg 35 - 45 mmHg [facility] Oxygen saturation in Venous blood 61 % 60 - 85 % [facility] Oxyhemoglobin (BldV) [Mass fraction] 60 % 60 - 85 % [facility] Patient Position 1 min. Recovery [facility] pH (BldV) 7.24 [pH] Low 7.32 - 7.42 [facility] pH adjusted to patient's actual temperature (BldV) 7.24 Low 7.32 - 7.42 [facility] Potassium [Moles/Vol] 4.0 mmol/L 3.5 - 5.0 mmol/L [facility] Sodium [Moles/Vol] 146 mmol/L High 136 - 144 mmol/L [facility] Base Deficit, Venous -4 mmol/L Low -2 - 0 mmol/L [facility] Calcium.ionized (Bld) [Mass/Vol] 1.27 mmol/L 1.08 - 1.30 mmol/L [facility] Calcium.ionized adjusted to pH 7.4 (BldA) [Moles/Vol] 1.18 mmol/L 1.08 - 1.30 mmol/L [facility] Carboxyhemoglobin (BldV) [Mass fraction] 0.7 % 0.0 - 2.0 % [facility] CO2 (BldV) [Partial pressure] 54 mm[Hg] 42 - 55 mmHg [facility] CO2 adjusted to patient's actual temperature (BldV) [Partial pressure] 54 mmHg 42 - 55 mmHg [facility] Glucose [Mass/Vol] 137 mg/dL High 60 - 105 mg/dL [facility] HCO3 (Bld) [Moles/Vol] 24 mmol/L 24 - 28 mmol/L [facility] Hematocrit (Bld) [Volume fraction] 44.2 % 39.0 - 51.0 % [facility] [place] Hemoglobin (Bld) [Mass/Vol] 14.4 g/dL 13.0 - 17.0 g/dL [facility] [place] [facility] Lactate [Moles/Vol] 3.6 mmol/L High 0.5 - 2. 2 mmol/L [facility] Methemoglobin (Bld) [Mass fraction] 1.1 % 0.0 - 1.5 % [facility] Oxygen (BldV) [Partial pressure] 26 mm[Hg] Low 35 - 45 mmHg [facility] Oxygen adjusted to patient's actual temperature (BldV) [Partial pressure] 26 mmHg Low 35 - 45 mmHg [facility] Oxygen saturation in Venous blood 34 % Low 60 - 85 % [facility] Oxyhemoglobin (BldV) [Mass fraction] 33 % Low 60 - 85 % [facility] Patient Position 100W MAX [facility] pH (BldV) 7.26 [pH] Low 7.32 - 7.42 [facility] pH adjusted to patient's actual temperature (BldV) 7.26 Low 7.32 - 7.42 [facility] Potassium [Moles/Vol] 4.8 mmol/L 3.5 - 5.0 mmol/L [facility] Sodium [Moles/Vol] 144 mmol/L 136 - 144 mmol/L [facility] Base Deficit, Venous -4 mmol/L Low -2 - 0 mmol/L [facility] Calcium.ionized (Bld) [Mass/Vol] 1.29 mmol/L 1.08 - 1.30 mmol/L [facility] Carboxyhemoglobin (BldV) [Mass fraction] 0.3 % 0.0 - 2.0 % [facility] CO2 (BldV) [Partial pressure] 50 mm[Hg] 42 - 55 mmHg [facility] CO2 adjusted to patient's actual temperature (BldV) [Partial pressure] 50 mmHg 42 - 55 mmHg [facility] Glucose [Mass/Vol] 139 mg/dL High 60 - 105 mg/dL [facility] HCO3 (Bld) [Moles/Vol] 23 mmol/L Low 24 - 28 mmol/L [facility] Hematocrit (Bld) [Volume fraction] 42.4 % 39.0 - 51.0 % [facility] [place] [facility] Hemoglobin (Bld) [Mass/Vol] 13.8 g/dL 13.0 - 17.0 g/dL [facility] Lactate [Moles/Vol] 2.8 mmol/L High 0.5 - 2. 2 mmol/L [facility] Methemoglobin (Bld) [Mass fraction] 1.0 % 0.0 - 1.5 % [facility] Oxygen (BldV) [Partial pressure] 28 mm[Hg] Low 35 - 45 mmHg [facility] Oxygen adjusted to patient's actual temperature (BldV) [Partial pressure] 28 mmHg Low 35 - 45 mmHg [facility] Oxygen saturation in Venous blood 41 % Low 60 - 85 % [facility] Oxyhemoglobin (BldV) [Mass fraction] 40 % Low 60 - 85 % [facility] pH (BldV) 7.28 [pH] Low 7.32 - 7.42 [facility] pH adjusted to patient's actual temperature (BldV) 7.28 Low 7.32 - 7.42 [facility] Potassium [Moles/Vol] 4.6 mmol/L 3.5 - 5.0 mmol/L [facility] Sodium [Moles/Vol] 147 mmol/L High 136 - 144 mmol/L [facility] Base Deficit, Venous -2 mmol/L -2 - 0 mmol/L [facility] Calcium.ionized (Bld) [Mass/Vol] 1.23 mmol/L 1.08 - 1.30 mmol/L [facility] [place] [facility] Calcium.ionized adjusted to pH 7.4 (BldA) [Moles/Vol] 1.17 mmol/L 1.08 - 1.30 mmol/L [facility] [place] Carboxyhemoglobin (BldV) [Mass fraction] 0.8 % 0.0 - 2.0 % [facility] CO2 (BldV) [Partial pressure] 47 mm[Hg] 42 - 55 mmHg [facility] CO2 adjusted to patient's actual temperature (BldV) [Partial pressure] 47 mmHg 42 - 55 mmHg [facility] Glucose [Mass/Vol] 140 mg/dL High 60 - 105 mg/dL [facility] HCO3 (Bld) [Moles/Vol] 23 mmol/L Low 24 - 28 mmol/L [facility] Hematocrit (Bld) [Volume fraction] 42.7 % 39.0 - 51.0 % [facility] [place] Hemoglobin (Bld) [Mass/Vol] 13.9 g/dL 13.0 - 17.0 g/dL [facility] [place] Lactate [Moles/Vol] 1.9 mmol/L 0.5 - 2. 2 mmol/L [facility] [place] [facility] Methemoglobin (Bld) [Mass fraction] 1.3 % 0.0 - 1.5 % [facility] Oxygen (BldV) [Partial pressure] 27 mm[Hg] Low 35 - 45 mmHg [facility] Oxygen adjusted to patient's actual temperature (BldV) [Partial pressure] 27 mmHg Low 35 - 45 mmHg [facility] Oxygen saturation in Venous blood 41 % Low 60 - 85 % [facility] Oxyhemoglobin (BldV) [Mass fraction] 40 % Low 60 - 85 % [facility] Patient Position 60W [facility] pH (BldV) 7.32 [pH] 7.32 - 7.42 [facility] pH adjusted to patient's actual temperature (BldV) 7.32 7.32 - 7.42 [facility] Potassium [Moles/Vol] 4.3 mmol/L 3.5 - 5.0 mmol/L [facility] Sodium [Moles/Vol] 142 mmol/L 136 - 144 mmol/L [facility] Base Deficit, Venous -2 mmol/L -2 - 0 mmol/L [facility] Calcium.ionized (Bld) [Mass/Vol] 1.22 mmol/L 1.08 - 1.30 mmol/L [facility] [place] [facility] Calcium.ionized adjusted to pH 7.4 (BldA) [Moles/Vol] 1.18 mmol/L 1.08 - 1.30 mmol/L [facility] [place] [facility] Carboxyhemoglobin (BldV) [Mass fraction] 0.7 % 0.0 - 2.0 % [facility] CO2 (BldV) [Partial pressure] 45 mm[Hg] 42 - 55 mmHg [facility] CO2 adjusted to patient's actual temperature (BldV) [Partial pressure] 45 mmHg 42 - 55 mmHg [facility] Glucose [Mass/Vol] 139 mg/dL High 60 - 105 mg/dL [facility] HCO3 (Bld) [Moles/Vol] 23 mmol/L Low 24 - 28 mmol/L [facility] Hematocrit (Bld) [Volume fraction] 42.1 % 39.0 - 51.0 % [facility] [place] Hemoglobin (Bld) [Mass/Vol] 13.7 g/dL 13.0 - 17.0 g/dL [facility] [place] Lactate [Moles/Vol] 1.3 mmol/L 0.5 - 2. 2 mmol/L [facility] [place] [facility] Methemoglobin (Bld) [Mass fraction] 1.0 % 0.0 - 1.5 % [facility] Oxygen (BldV) [Partial pressure] 28 mm[Hg] Low 35 - 45 mmHg [facility] Oxygen adjusted to patient's actual temperature (BldV) [Partial pressure] 28 mmHg Low 35 - 45 mmHg [facility] Oxygen saturation in Venous blood 46 % Low 60 - 85 % [facility] Oxyhemoglobin (BldV) [Mass fraction] 45 % Low 60 - 85 % [facility] Patient Position 40W [facility] pH (BldV) 7.33 [pH] 7.32 - 7.42 [facility] pH adjusted to patient's actual temperature (BldV) 7.33 7.32 - 7.42 [facility] Potassium [Moles/Vol] 4.2 mmol/L 3.5 - 5.0 mmol/L [facility] Sodium [Moles/Vol] 143 mmol/L 136 - 144 mmol/L [facility] Base Deficit, Venous -2 mmol/L -2 - 0 mmol/L [facility] Calcium.ionized (Bld) [Mass/Vol] 1.21 mmol/L 1.08 - 1.30 mmol/L [facility] [place] [facility] Calcium.ionized adjusted to pH 7.4 (BldA) [Moles/Vol] 1.19 mmol/L 1.08 - 1.30 mmol/L [facility] [place] [facility] Carboxyhemoglobin (BldV) [Mass fraction] 1.2 % 0.0 - 2.0 % [facility] CO2 (BldV) [Partial pressure] 41 mm[Hg] Low 42 - 55 mmHg [facility] CO2 adjusted to patient's actual temperature (BldV) [Partial pressure] 41 mmHg Low 42 - 55 mmHg [facility] Glucose [Mass/Vol] 140 mg/dL High 60 - 105 mg/dL [facility] HCO3 (Bld) [Moles/Vol] 23 mmol/L Low 24 - 28 mmol/L [facility] Hematocrit (Bld) [Volume fraction] 40.9 % 39.0 - 51.0 % [facility] [place] Hemoglobin (Bld) [Mass/Vol] 13.3 g/dL 13.0 - 17.0 g/dL [facility] [place] [facility] Lactate [Moles/Vol] 1.0 mmol/L 0.5 - 2. 2 mmol/L [facility] Methemoglobin (Bld) [Mass fraction] 1.0 % 0.0 - 1.5 % [facility] Oxygen (BldV) [Partial pressure] 29 mm[Hg] Low 35 - 45 mmHg [facility] Oxygen adjusted to patient's actual temperature (BldV) [Partial pressure] 29 mmHg Low 35 - 45 mmHg [facility] Oxygen saturation in Venous blood 49 % Low 60 - 85 % [facility] Oxyhemoglobin (BldV) [Mass fraction] 48 % Low 60 - 85 % [facility] Patient Position 20W [facility] pH (BldV) 7.36 [pH] 7.32 - 7.42 [facility] pH adjusted to patient's actual temperature (BldV) 7.36 7.32 - 7.42 [facility] Potassium [Moles/Vol] 4.1 mmol/L 3.5 - 5.0 mmol/L [facility] Sodium [Moles/Vol] 141 mmol/L 136 - 144 mmol/L [facility] Base Deficit, Venous -4 mmol/L Low -2 - 0 mmol/L [facility] Calcium.ionized (Bld) [Mass/Vol] 1.13 mmol/L 1.08 - 1.30 mmol/L [facility] [place] Calcium.ionized adjusted to pH 7.4 (BldA) [Moles/Vol] 1.12 mmol/L 1.08 - 1.30 mmol/L [facility] [place] [facility] Carboxyhemoglobin (BldV) [Mass fraction] 0.7 % 0.0 - 2.0 % [facility] CO2 (BldV) [Partial pressure] 36 mm[Hg] Low 42 - 55 mmHg [facility] CO2 adjusted to patient's actual temperature (BldV) [Partial pressure] 36 mmHg Low 42 - 55 mmHg [facility] Glucose [Mass/Vol] 140 mg/dL High 60 - 105 mg/dL [facility] HCO3 (Bld) [Moles/Vol] 20 mmol/L Low 24 - 28 mmol/L [facility] Hematocrit (Bld) [Volume fraction] 38.7 % Low 39.0 - 51.0 % [facility] [place] Hemoglobin (Bld) [Mass/Vol] 12.6 g/dL Low 13.0 - 17.0 g/dL [facility] [place] Lactate [Moles/Vol] 0.8 mmol/L 0.5 - 2. 2 mmol/L [facility] Methemoglobin (Bld) [Mass fraction] 0.7 % 0.0 - 1.5 % [facility] Oxygen (BldV) [Partial pressure] 39 mm[Hg] 35 - 45 mmHg [facility] Oxygen adjusted to patient's actual temperature (BldV) [Partial pressure] 39 mmHg 35 - 45 mmHg [facility] Oxygen saturation in Venous blood 70 % 60 - 85 % [facility] Oxyhemoglobin (BldV) [Mass fraction] 69 % 60 - 85 % [facility] Patient Position Sitting Baseline [facility] pH (BldV) 7.37 [pH] 7.32 - 7.42 [facility] pH adjusted to patient's actual temperature (BldV) 7.37 7.32 - 7.42 [facility] Potassium [Moles/Vol] 3.6 mmol/L 3.5 - 5.0 mmol/L [facility] Sodium [Moles/Vol] 140 mmol/L 136 - 144 mmol/L [facility] Base Deficit, Venous -2 mmol/L -2 - 0 mmol/L [facility] Calcium.ionized (Bld) [Mass/Vol] 1.21 mmol/L 1.08 - 1.30 mmol/L [facility] Calcium.ionized adjusted to pH 7.4 (BldA) [Moles/Vol] 1.19 mmol/L 1.08 - 1.30 mmol/L [facility] Carboxyhemoglobin (BldV) [Mass fraction] 1.2 % 0.0 - 2.0 % [facility] CO2 (BldV) [Partial pressure] 39 mm[Hg] Low 42 - 55 mmHg [facility] CO2 adjusted to patient's actual temperature (BldV) [Partial pressure] 39 mmHg Low 42 - 55 mmHg [facility] Glucose [Mass/Vol] 136 mg/dL High 60 - 105 mg/dL [facility] HCO3 (Bld) [Moles/Vol] 22 mmol/L Low 24 - 28 mmol/L [facility] Hematocrit (Bld) [Volume fraction] 39.1 % 39.0 - 51.0 % [facility] Hemoglobin (Bld) [Mass/Vol] 12.7 g/dL Low 13.0 - 17.0 g/dL [facility] Lactate [Moles/Vol] 0.9 mmol/L 0.5 - 2. 2 mmol/L [facility] Methemoglobin (Bld) [Mass fraction] 0.6 % 0.0 - 1.5 % [facility] Oxygen (BldV) [Partial pressure] 39 mm[Hg] 35 - 45 mmHg [facility] Oxygen adjusted to patient's actual temperature (BldV) [Partial pressure] 39 mmHg 35 - 45 mmHg [facility] Oxygen saturation in Venous blood 72 % 60 - 85 % [facility] Oxyhemoglobin (BldV) [Mass fraction] 71 % 60 - 85 % [facility] Patient Position Supine Baseline [facility] pH (BldV) 7.38 [pH] 7.32 - 7.42 [facility] pH adjusted to patient's actual temperature (BldV) 7.38 7.32 - 7.42 [facility] Potassium [Moles/Vol] 3.9 mmol/L 3.5 - 5.0 mmol/L [facility] Sodium [Moles/Vol] 140 mmol/L 136 - 144 mmol/L [facility] Laboratory - Chemistry and C hemistry - challengeon 04-27-2023 Calcium.ionized adjusted to pH 7.4 (BldA) [Moles/Vol] 1.21 mmol/L 1.08 - 1.30 mmol/L [facility] No Panel Informationon 04-27 Patient Position 80W [facility] US VASCULAR (POC) FOR OZIEL US E ONLYon 04-27-2023 [facility] XR ARTERY CATHETER (POC) FOR OZIEL USE ONLYon 04-27-2023 [facility] CBC AUTO DIFFon 12-26-2022 BASO # 0.1 103/ul Normal 0.0-0.1 [facility] Comment on above: Performed By: #### C BC #### [facility] [address] [address] [address] Ben Perdue Basophils/100 WBC (Bld) 0.6 % Normal 0.2-2.0 [facility] Comment on above: Performed By: #### C BC #### [facility] [address] [place] [address] Dr. Ben Perdue EO # 0.3 103/ul Normal 0.0-0.7 [facility] Comment on above: Performed By: #### C BC #### [facility] [address] [place] [address] Dr. Ben Perdue Eosinophils/100 WBC (Bld) 3.7 % Normal 0.9-7.0 [facility] Comment on above: Performed By: #### C BC #### [facility] [address] [place] [address] Dr. Ben Perdue Erythrocyte distribution width (RBC) [Ratio] 12.0 % Normal 11.0-15.0 [facility] Comment on above: Performed By: #### C BC #### [facility] [address] [place] [address] Dr. Ben Perdue Hematocrit (Bld) [Volume fraction] 39.2 % Critically low 42.0-54.0 [facility] Comment on above: Performed By: #### C BC #### [facility] [address] [place] [address] Dr. Ben Perdue Hemoglobin (Bld) [Mass/Vol] 13.1 g/dL Critically low 14.0-18.0 [facility] Comment on above: Performed By: #### C BC #### [facility] [address] [place] [address] Dr. Ben Perdue IG # 0.02 10e3/ul Normal 0.00-0.03 [facility] Comment on above: Performed By: #### C BC #### [facility] [address] [place] [address] Dr. Ben Perdue IG % 0.2 % Normal 0.0-0.5 [facility] Comment on above: Performed By: #### C BC #### [facility] [address] [place] [address] Dr. Ben Perdue LYMPH # 1.3 103/ul Normal 1.2-3.8 [facility] Comment on above: Performed By: #### C BC #### [facility] [address] [place] [address] Dr. Ben Perdue Lymphocytes/100 WBC (Bld) 16.1 % Critically low 20.5-60.0 [facility] Comment on above: Performed By: #### C BC #### [facility] [address] [place] [address] Dr. Ben Perdue MANUAL DIFF REQ NO Normal [facility] Comment on above: Performed By: #### C BC #### [facility] [address] [place] [address] Dr. Ben Perdue MCH (RBC) [Entitic mass] 30.8 pg Normal 25.9-34.0 [facility] Comment on above: Performed By: #### C BC #### [facility] [address] [place] [address] Dr. Ben Perdue MCHC (RBC) [Mass/Vol] 33.4 g/dL Normal 29.9-35.2 [facility] Comment on above: Performed By: #### C BC #### [facility] [address] [place] [address] Dr. Ben Perdue MCV (RBC) [Entitic vol] 92.0 fL Normal 80.0-94.0 [facility] Comment on above: Performed By: #### C BC #### [facility] [address] [place] [address] Dr. Ben Perdue MONO # 0.8 103/ul Normal 0.3-0.8 [facility] Comment on above: Performed By: #### C BC #### [facility] [address] [place] [address] Dr. Ben Perdue Monocytes/100 WBC (Bld) 9.5 % Normal 1.7-12.0 [facility] Comment on above: Performed By: #### C BC #### [facility] [address] [place] [address] Dr. Ben Perdue NEUT # 5.6 103/ul Normal 1.4-6.5 [facility] Comment on above: Performed By: #### C BC #### [facility] [address] [address] [address] Ben Perdue Neutrophils/100 WBC (Bld) 69.9 % Normal 43.0-75.0 [facility] Comment on above: Performed By: #### C BC #### [facility] [address] [address] [address] Ben Perdue Platelet mean volume (Bld) [Entitic vol] 9.7 fL Normal 9.5-13.5 [facility] Comment on above: Performed By: #### C BC #### [facility] [address] [place] [address] Dr. Ben Perdue PLT 240 103/ul Normal 150-450 [facility] Comment on above: Performed By: #### C BC #### [facility] [address] [place] [address] Dr. Ben Perdue RBC 4.26 106/ul Critically low 4.70-6.10 [facility] Comment on above: Performed By: #### C BC #### [facility] [address] [place] [address] Dr. Ben Perdue WBC 8.1 103/ul Normal 4.0-11.0 [facility] Comment on above: Performed By: #### C BC #### [facility] [address] [place] [address] ABD/PELVIS WO CONon [...] AZALEA SOUZA Date: 2022-12-26 18:45 Normal [facility] ER URINE PROFILEon 3 Bilirubin Ql (U) Negative Normal NEGATIVE [facility] Comment on above: Performed By: #### U MICRO, ERUR ####[facility] [address] [address]Dr. Ben Perdue Clarity (U) CLEAR Normal CLEAR [facility] Comment on above: Performed By: #### U MICRO, ERUR ####[facility] [address] [address]Dr. Ben Perdue Color (U) LT. YELLOW Normal YELLOW [facility] Comment on above: Performed By: #### U MICRO, ERUR ####[facility] [address] [address]Dr. Ben Perdue ERUAHD A micrscopic examina tion will be performed if indicated. Normal [facility] Comment on above: Performed By: #### U MICRO, ERUR ####[facility] [address] [address]Dr. Ben Perdue Glucose Ql (U) Negative Normal NEGATIVE [facility] Comment on above: Performed By: #### U MICRO, ERUR ####[facility] [address] [address]Dr. Ben Perdue Hemoglobin Ql (U) LARGE Abnormal NEGATIVE [facility] Comment on above: Performed By: #### U MICRO, ERUR ####[facility] [address] [place], [place] [address]Dr. Ben Perdue Ketones Ql (U) Negative Normal NEGATIVE [facility] Comment on above: Performed By: #### U MICRO, ERUR ####[facility] [address] [place], [place] [address]Dr. Ben Perdue LEUKOCYTES Negative Normal NEGATIVE [facility] Comment on above: Performed By: #### U MICRO, ERUR ####[facility] [address] [place], [place] [address]Dr. Ben Perdue Nitrite Ql (U) Negative Normal NEGATIVE [facility] Comment on above: Performed By: #### U MICRO, ERUR ####[facility] [address] [place], [place] [address]Dr. Ben Perdue pH (U) 5.5 [pH] Normal 5-9 [facility] Comment on above: Performed By: #### U MICRO, ERUR ####[facility] [address] [place], [place] [address]Dr. Ben Perdue SPEC GRAVITY 1.020 Normal 1.005-<=1.0 25 [facility] Comment on above: Performed By: #### U MICRO, ERUR ####[facility] [address] [place], [place] [address]Dr. Mariloujayesh Perdue UA PROTEIN Negative Normal NEGATIVE/ TRACE [facility] Comment on above: Performed By: #### U MICRO, ERUR ####[facility] [address] [place], [place] [address]Dr. Ben Perdue UR MICRO IND INDICATED Normal [facility] Comment on above: Performed By: #### U MICRO, ERUR ####[facility] [address] [address]Dr. Ben Perdue Urobilinogen Qn (U) 0.2 {Johanna'U}/dL Normal 0.2 - 1. 0 [facility] Comment on above: Performed By: #### U MICRO, ERUR ####[facility] [address] [address]Dr. Ben Perdue PROF CHEM 8 (BAS METB)on Anion gap [Moles/Vol] 14.7 mmol/L Normal [facility] Comment on above: Performed By: #### B MP ####[facility] [address] [place], [place] [address]Dr. Ben Perdue Calcium [Mass/Vol] 8.8 mg/dL Normal 8.5-10.1 [facility] Comment on above: Performed By: #### B MP ####[facility] [address] [place], [place] [address]Dr. Ben Perdue Chloride [Moles/Vol] 105 mmol/L Normal 98-107 [facility] Comment on above: Performed By: #### B MP ####[facility] [address] [place], [place] [address]Dr. Ben Perdue CO2 [Moles/Vol] 24.5 mmol/L Normal 21.0-32.0 [facility] Comment on above: Performed By: #### B MP ####[facility] [address] [place], [place] [address]Dr. Ben Perdue Creatinine [Mass/Vol] 1.27 mg/dL Normal 0.70-1.30 [facility] Comment on above: Performed By: #### B MP ####[facility] [address] [place], [place] [address]Dr. Ben Perdue EGFR-AF MOLDOVAN >60 Normal >=60 [facility] Comment on above: Performed By: #### B MP ####[facility] [address] [place], [place] [address]Dr. Ben Perdue EGFR-NON AF MOLDOVAN 55 mL/min/1.73m2 Critically low >=60 [facility] Comment on above: Performed By: #### B MP ####[facility] [address] [address]Dr. Ben Perdue Glucose [Mass/Vol] 141 mg/dL Critically high 74-106 T [facility] Comment on above: Performed By: #### B MP ####[facility] [address] [address]Dr. Ben Perdue Potassium [Moles/Vol] 4.2 mmol/L Normal 3.5-5.1 [facility] Comment on above: Performed By: #### B MP ####[facility] [address] [address]Dr. Ben Perdue Sodium [Moles/Vol] 140 mmol/L Normal 136-145 [facility] Comment on above: Performed By: #### B MP ####[facility] [address] [place], [place] [address]Dr. Ben Perdue Urea nitrogen [Mass/Vol] 29.0 mg/dL Critically high 7.0-18.0 [facility] Comment on above: Performed By: #### B MP ####[facility] [address] [place], [place] [address]Dr. Ben Perdue Urea nitrogen/Creatinine [Mass ratio] 22.8 mg/mg Normal [facility] Comment on above: Performed By: #### B MP ####[facility] [address] [address]Dr. Ben Iron URINE MICROSCOPIC ONLYon BACTERIA TRACE Abnormal NONE SEEN [facility] Comment on above: Performed By: #### U MICRO, ERUR ####[facility] [address] [place], [place] [address]Dr. Ben Iron Bacteria identified Cx Nom (U) NOT INDICATED Normal [facility] Comment on above: Performed By: #### U MICRO, ERUR ####[facility] [address] [id number]. Mariloujayesh Iron CAST NONE SEEN Normal NONE SEEN [facility] Comment on above: Performed By: #### U MICRO, ERUR ####[facility] [id number] [place] [address]Dr. Ben Perdue Crystals LM Nom (Urine sed) NONE SEEN Normal NONE SEEN [facility] Comment on above: Performed By: #### U MICRO, ERUR ####[facility] [id number] [place] [address]Dr. Bne Perdue Epithelial cells LM Ql (Urine sed) NONE SEEN Normal NONE SEEN /RARE [facility] Comment on above: Performed By: #### U MICRO, ERUR ####[facility] [address] [place] [address]Dr. Ben Perdue MUCOUS NONE SEEN Normal NONE SEEN [facility] Comment on above: Performed By: #### U MICRO, ERUR ####[facility] [address] [place] [address]Dr. Ben Perdue RBC 5-10 Abnormal 0-2 [facility] Comment on above: Performed By: #### U MICRO, ERUR ####[facility] [address] [place] [address]Dr. Ben Perdue WBC NONE SEEN Normal NONE SEEN [facility] Comment on above: Performed By: #### U MICRO, ERUR ####[facility] [address] [place] [address]DrSayda Perdue HEMOGLOBINon 06-02-2022 Hemoglobin (Bld) [Mass/Vol] 13.6 g/dL Critically low 14.0-18.0 [facility] Comment on above: Performed By: #### H GB #### [facility] [address] [address] [address] Ben Perdue PULMONARY FUNCTION TESTon PULMONARY [...] desaturations noted. Clinical correlation required. Normal [facility] ECHOCARDIO M/2D COMPLETEon 0 05-04-2022 ECHOCARDIO M/2D COMPLETE Patient: JACINTA ROBLES Exam Date: 05/04/2022 : 1945 Gender:M Ordering : DR. MELANIE GAYLE . Admission #: [id number] Family : DR TAB BARFIELD D.O. Order #: [id number] CLICK HERE TO VIEW EXAM ECHOCARDIOGRAM REPORT [...] Liang M.D. on 05/06/2022 at 17:10 Normal [facility] TRANSFERRINon 04-28-2022 Transferrin [Mass/Vol] 255 mg/dL Normal 177-329 [facility] Comment on above: Performed By: #### T RANSFR ####[facility] [address] [place], [place] [address]PyDr. Ben Perdue CBC AUTO DIFFon 04-27-2022 BASO # 0.1 103/ul Normal 0.0-0.1 [facility] Comment on above: Performed By: #### R ETIC, CBC #### [facility] [address] [place], [place] [address] Dr. Ben Perdue Basophils/100 WBC (Bld) 0.7 % Normal 0.2-2.0 [facility] Comment on above: Performed By: #### R ETIC, CBC #### [facility] [address] [place] [address] Dr. Ben Perdue EO # 0.3 103/ul Normal 0.0-0.7 [facility] Comment on above: Performed By: #### R ETIC, CBC #### [facility] [address] [place] [address] Dr. Ben Perdue Eosinophils/100 WBC (Bld) 3.6 % Normal 0.9-7.0 [facility] Comment on above: Performed By: #### R ETIC, CBC #### [facility] [address] [place] [address] Dr. Ben Perdue Erythrocyte distribution width (RBC) [Ratio] 11.8 % Normal 11.0-15.0 [facility] Comment on above: Performed By: #### R ETIC, CBC #### [facility] [address] [place] [address] Dr. Ben Perdue Hematocrit (Bld) [Volume fraction] 39.4 % Critically low 42.0-54.0 [facility] Comment on above: Performed By: #### R ETIC, CBC #### [facility] [address] [place] [address] Dr. Ben Perdue Hemoglobin (Bld) [Mass/Vol] 12.9 g/dL Critically low 14.0-18.0 [facility] Comment on above: Performed By: #### R ETIC, CBC #### [facility] [address] [place] [address] Dr. Ben Perdue IG # 0.04 10e3/ul Critically high 0.00-0.03 [facility] Comment on above: Performed By: #### R ETIC, CBC #### [facility] [address] [place] [address] Dr. Ben Perdue IG % 0.5 % Normal 0.0-0.5 [facility] Comment on above: Performed By: #### R ETIC, CBC #### [facility] [address] [address] [address] Ben Perdue LYMPH # 1.2 103/ul Normal 1.2-3.8 [facility] Comment on above: Performed By: #### R ETIC, CBC #### [facility] [address] [place] [address] Dr. Ben Perdue Lymphocytes/100 WBC (Bld) 14.9 % Critically low 20.5-60.0 [facility] Comment on above: Performed By: #### R ETIC, CBC #### [facility] [address] [place] [address] Dr. Ben Perdue MANUAL DIFF REQ NO Normal [facility] Comment on above: Performed By: #### R ETIC, CBC #### [facility] [address] [place] [address] Dr. Ben Perdue MCH (RBC) [Entitic mass] 30.6 pg Normal 25.9-34.0 [facility] Comment on above: Performed By: #### R ETIC, CBC #### [facility] [address] [place] [address] Dr. Ben Perdue MCHC (RBC) [Mass/Vol] 32.7 g/dL Normal 29.9-35.2 [facility] Comment on above: Performed By: #### R ETIC, CBC #### [facility] [address] [place] [address] Dr. Ben Perdue MCV (RBC) [Entitic vol] 93.6 fL Normal 80.0-94.0 [facility] Comment on above: Performed By: #### R ETIC, CBC #### [facility] [address] [place] [address] Dr. Ben Perdue MONO # 0.7 103/ul Normal 0.3-0.8 [facility] Comment on above: Performed By: #### R ETIC, CBC #### [facility] [address] [place] [address] Dr. Ben Perdue Monocytes/100 WBC (Bld) 8.1 % Normal 1.7-12.0 [facility] Comment on above: Performed By: #### R ETIC, CBC #### [facility] [address] [address] [address] Ben Perdue NEUT # 5.9 103/ul Normal 1.4-6.5 [facility] Comment on above: Performed By: #### R ETIC, CBC #### [facility] [address] [address] [address] Ben Perdue Neutrophils/100 WBC (Bld) 72.2 % Normal 43.0-75.0 [facility] Comment on above: Performed By: #### R ETIC, CBC #### [facility] [address] [address] [address] Ben Perdue Platelet mean volume (Bld) [Entitic vol] 9.7 fL Normal 9.5-13.5 [facility] Comment on above: Performed By: #### R ETIC, CBC #### [facility] [address] [address] [address] Ben Perdue PLT 231 103/ul Normal 150-450 [facility] Comment on above: Performed By: #### R ETIC, CBC #### [facility] [address] [address] [address] Ben Perdue RBC 4.21 106/ul Critically low 4.70-6.10 [facility] Comment on above: Performed By: #### R ETIC, CBC #### [facility] [address] [address] [address] Ben Perdue WBC 8.1 103/ul Normal 4.0-11.0 [facility] Comment on above: Performed By: #### R ETIC, CBC #### [facility] [address] [address] [address] Ben Perdue FERRITINon 04-27-2022 Ferritin [Mass/Vol] 213.0 ng/mL Normal 26.0-388.0 [facility] Comment on above: Performed By: #### F ERR, B12FOL, FETIBC #### [facility] [address] [address] [address] Ben Perdue IRON AND TIBCon 04-27-2022 % SATURATION 34.0 % Normal [facility] Comment on above: Performed By: #### F ERR, B12FOL, FETIBC #### [facility] [address] [address] [address] Ben Perdue Iron [Mass/Vol] 101.0 ug/dL Normal 65.0-175.0 [facility] Comment on above: Performed By: #### F ERR, B12FOL, FETIBC #### [facility] [address] [address] [address] Ben Perdue TIBC DIRECT 297.0 ug/dL Normal 250.0-450.0 [facility] Comment on above: Performed By: #### F ERR, B12FOL, FETIBC #### [facility] [address] [address] [address] Ben Perdue RETICULOCYTEon 04-27-2022 RETIC 1.42 % Normal 0.60-3.10 [facility] Comment on above: Performed By: #### R ETIC, CBC #### [facility] [address] [address] [address] Ben Perdue VIT B12 AND FOLATEon 022 Cobalamin (Vitamin B12) [Mass/Vol] 479.0 pg/mL Normal 193.0-986.0 [facility] Comment on above: Performed By: #### F ERR, B12FOL, FETIBC ####[facility] [address] [place] [id number]. Ben Perdue FOLATE 9.40 ng/mL Normal 8.60-58.90 [facility] Comment on above: Performed By: #### F ERR, B12FOL, FETIBC ####[facility] [address] [place] [id number]. Ben Perdue CT CHEST WO CONon 03-08-2022 [...] by: ARTURO JJ Date: 2022-03-08 08:41 Normal [facility] RIGHT HEART CATH O2 SATURATI ON & CARDIAC OUTPUT [facility] Vital Signs Date Time Vital Sign Value Performing Clinician Facility 04-22-2025 14:54-0400 Body mass index (BMI) [Ratio] 32.56 kg/m2 Mary Berman MD Work Phone: [facility] 04-22-2025 14:54-0400 Body temperature 97.39 [degF] Mary Berman MD Work Phone: [facility] 04-22-2025 14:54-0400 Body weight 95.2 kg Mary Berman MD Work Phone: [facility] 04-22-2025 14:54-0400 Diastolic blood pressure 68 mm[Hg] Mary Berman MD Work Phone: [facility] 04-22-2025 14:54-0400 Heart rate 71 /min Mary Berman MD Work Phone: [facility] 04-22-2025 14:54-0400 Respiratory rate 16 /min Mary Berman MD Work Phone: [facility] 04-22-2025 14:54-0400 SaO2% (BldA) [Mass fraction] 98 % Mary Berman MD Work Phone: [facility] 04-22-2025 14:54-0400 Systolic blood pressure 123 mm[Hg] Mary Berman MD Work Phone: [facility] 12-23-2024 13:57-0400 Body height 172.72 cm [facility] 12-23-2024 13:57-0400 Body mass index (BMI) [Ratio] 31.4 kg/m2 [facility] 12-23-2024 13:57-0400 Body weight 93.89 kg [facility] 12-23-2024 13:57-0400 Diastolic blood pressure 67 mm[Hg] [facility] 12-23-2024 13:57-0400 Heart rate 76 /min [facility] 12-23-2024 13:57-0400 Respiratory rate 12 /min [facility] 12-23-2024 13:57-0400 SaO2% (BldA) [Mass fraction] 97 % [facility] 12-23-2024 13:57-0400 Systolic blood pressure 121 mm[Hg] [facility] 04-23-2024 15:08-0400 Body height 172.72 cm [facility] 04-23-2024 15:08-0400 Body mass index (BMI) [Ratio] 31.4 kg/m2 [facility] 04-23-2024 15:08-0400 Body weight 93.66 kg [facility] 04-23-2024 15:08-0400 Diastolic blood pressure 71 mm[Hg] [facility] 04-23-2024 15:08-0400 Heart rate 74 /min [facility] 04-23-2024 15:08-0400 Respiratory rate 20 /min [facility] 04-23-2024 15:08-0400 Systolic blood pressure 144 mm[Hg] [facility] 03-29-2024 14:19-0400 Body mass index (BMI) [Ratio] 32.01 kg/m2 Gabe Banerjee MD Work Phone: [facility] 03-29-2024 14:19-0400 Body temperature 98.49 [degF] Gabe Banerjee MD Work Phone: [facility] 03-29-2024 14:19-0400 Body weight 93.6 kg Gabe Banerjee MD Work Phone: [facility] 03-29-2024 14:19-0400 Diastolic blood pressure 69 mm[Hg] Gabe Banerjee MD Work Phone: [facility] 03-29-2024 14:19-0400 Heart rate 72 /min Gabe Banerjee MD Work Phone: [facility] 03-29-2024 14:19-0400 Respiratory rate 18 /min Gabe Banerjee MD Work Phone: [facility] 03-29-2024 14:19-0400 SaO2% (BldA) [Mass fraction] 97 % Gabe Banerjee MD Work Phone: [facility] 03-29-2024 14:19-0400 Systolic blood pressure 121 mm[Hg] Gabe Banerjee MD Work Phone: [facility] 12-22-2023 14:21-0400 Body height 172.72 cm [facility] 12-22-2023 14:21-0400 Body mass index (BMI) [Ratio] 31.8 kg/m2 [facility] 12-22-2023 14:21-0400 Body weight 94.85 kg [facility] 12-22-2023 14:21-0400 Diastolic blood pressure 71 mm[Hg] [facility] 12-22-2023 14:21-0400 Heart rate 71 /min [facility] 12-22-2023 14:21-0400 Respiratory rate 20 /min [facility] 12-22-2023 14:21-0400 Systolic blood pressure 125 mm[Hg] [facility] 09-12-2023 15:00-0500 Body height 172.72 cm Tab Ball Other [employer] Other 09-12-2023 15:00-0500 Body mass index (BMI) [Ratio] 31.74 kg/m2 Tab Ball Other [employer] Other 09-12-2023 15:00-0500 Body weight 94.71 kg Tab Ball Other [employer] Other 09-12-2023 15:00-0500 Diastolic blood pressure 72 mm[Hg] Tab Ball Other [employer] Other 09-12-2023 15:00-0500 Respiratory rate 20 /min Tab Ball Other [employer] Other 09-12-2023 15:00-0500 Systolic blood pressure 119 mm[Hg] Tab Ball Other [employer] Other 06-22-2023 12:10-0500 Diastolic blood pressure 62 mm[Hg] DO Tab Ball Work Phone: [facility] 06-22-2023 12:10-0500 Heart rate 60 /min DO Tab Ball Work Phone: [facility] 06-22-2023 12:10-0500 Respiratory rate 16 /min DO Tab Ball Work Phone: [facility] 06-22-2023 12:10-0500 SaO2% (BldA) [Mass fraction] 98 % DO Tab Ball Work Phone: [facility] 06-22-2023 12:10-0500 Systolic blood pressure 121 mm[Hg] DO Tab Ball Work Phone: [facility] 06-22-2023 10:35-0500 Body height 172.72 cm DO Tab Ball Work Phone: [facility] 06-22-2023 10:35-0500 Body weight 95.25 kg DO Tab Ball Work Phone: [facility] 06-20-2023 11:15-0500 Body height 172.72 cm Tab Ball Other [employer] Other 06-20-2023 11:15-0500 Body mass index (BMI) [Ratio] 31.87 kg/m2 Tab Ball Other [employer] Other 06-20-2023 11:15-0500 Body weight 95.07 kg Tab Ball Other [employer] Other 06-20-2023 11:15-0500 Diastolic blood pressure 75 mm[Hg] Tab Ball Other [employer] Other 06-20-2023 11:15-0500 Respiratory rate 20 /min Tab Ball Other [employer] Other 06-20-2023 11:15-0500 Systolic blood pressure 128 mm[Hg] Tab Ball Other [employer] Other 05-02-2023 14:00-0400 Body height 172.72 cm Tab Ball Other [employer] Other 05-02-2023 14:00-0400 Body mass index (BMI) [Ratio] 32.26 kg/m2 Tab Ball Other [employer] Other 05-02-2023 14:00-0400 Body weight 96.25 kg Tab Ball Other [employer] Other 05-02-2023 14:00-0400 Diastolic blood pressure 61 mm[Hg] Tab Ball Other [employer] Other 05-02-2023 14:00-0400 Respiratory rate 20 /min Tab Ball Other [employer] Other 05-02-2023 14:00-0400 SaO2% (BldA) [Mass fraction] 98 % Tab Ball Other [employer] Other 05-02-2023 14:00-0400 Systolic blood pressure 119 mm[Hg] Tab Ball Other [employer] Other 04-27-2023 14:37-0400 SaO2% (BldA) [Mass fraction] 98 % Pulm Rm Work Phone: [facility] 04-27-2023 14:36-0400 SaO2% (BldA) [Mass fraction] 99 % Pulm Rm Work Phone: [facility] 04-27-2023 14:34-0400 SaO2% (BldA) [Mass fraction] 93 % Pulm Rm Work Phone: [facility] 04-27-2023 14:32-0400 SaO2% (BldA) [Mass fraction] 94 % Pulm Rm Work Phone: [facility] 04-27-2023 14:32-0400 SaO2% (BldA) [Mass fraction] 97 % Pulm Rm Work Phone: [facility] 04-27-2023 14:29-0400 SaO2% (BldA) [Mass fraction] 95 % Pulm Rm Work Phone: [facility] 04-27-2023 14:28-0400 SaO2% (BldA) [Mass fraction] 96 % Pulm Rm Work Phone: [facility] 04-27-2023 14:21-0400 SaO2% (BldA) [Mass fraction] 98 % Pulm Rm Work Phone: [facility] 04-27-2023 14:20-0400 SaO2% (BldA) [Mass fraction] 95 % Pulm Rm Work Phone: [facility] 04-27-2023 14:08-0400 SaO2% (BldA) [Mass fraction] 99 % Pulm Rm Work Phone: [facility] 04-27-2023 14:06-0400 SaO2% (BldA) [Mass fraction] 97 % Pulm Rm Work Phone: [facility] 12-20-2022 15:30-0400 Body height 172.72 cm Tab Ball Other [employer] Other 12-20-2022 15:30-0400 Body mass index (BMI) [Ratio] 32.41 kg/m2 Tab Ball Other [employer] Other 12-20-2022 15:30-0400 Body weight 96.71 kg Tab Ball Other [employer] Other 12-20-2022 15:30-0400 Diastolic blood pressure 65 mm[Hg] Tab Ball Other [employer] Other 12-20-2022 15:30-0400 Respiratory rate 20 /min Tab Ball Other [employer] Other 12-20-2022 15:30-0400 SaO2% (BldA) [Mass fraction] 97 % Tab Ball Other [employer] Other 12-20-2022 15:30-0400 Systolic blood pressure 111 mm[Hg] Tab Ball Other [employer] Other 12-20-2022 14:30-0400 Body height 172.72 cm Tab Ball Other [employer] Other 12-20-2022 14:30-0400 Body mass index (BMI) [Ratio] 32.41 kg/m2 Tab Ball Other [employer] Other 12-20-2022 14:30-0400 Body weight 96.71 kg Tab Ball Other [employer] Other 12-20-2022 14:30-0400 Diastolic blood pressure 65 mm[Hg] Tab Ball Other [employer] Other 12-20-2022 14:30-0400 Respiratory rate 20 /min Tab Ball Other [employer] Other 12-20-2022 14:30-0400 SaO2% (BldA) [Mass fraction] 97 % Tab Ball Other [employer] Other 12-20-2022 14:30-0400 Systolic blood pressure 111 mm[Hg] Tab Ball Other [employer] Other 03-24-2022 15:31-0400 Body height 175.3 cm Gabe Banerjee MD Work Phone: [facility] 03-24-2022 15:31-0400 Body temperature 97.39 [degF] Gabe Banerjee MD Work Phone: [facility] 03-24-2022 15:31-0400 Body weight 92.53 kg Gabe Banerjee MD Work Phone: [facility] 03-24-2022 15:31-0400 Diastolic blood pressure 56 mm[Hg] Gabe Banerjee MD Work Phone: [facility] 03-24-2022 15:31-0400 Heart rate 67 /min Gabe Banerjee MD Work Phone: [facility] 03-24-2022 15:31-0400 Respiratory rate 16 /min Gabe Banerjee MD Work Phone: [facility] 03-24-2022 15:31-0400 SaO2% (BldA) [Mass fraction] 97 % Gabe Banerjee MD Work Phone: [facility] 03-24-2022 15:31-0400 Systolic blood pressure 129 mm[Hg] Gabe Banerjee MD Work Phone: [facility] Encounters Encounter Date Encounter Type Care Provider Facility Start: 04-22-2025 End: 04-22-2025 Patient encounter procedure Mary Berman MD Work Phone: PULMONARY Comment on above: Chronic obstructive pulmonary disease, unspecified COPD type (HCC) (Primary Dx); Mucopurulent chronic bronchitis (HCC); Dyspnea on exertion; Multiple lung nodules; History of lung cancer; THEODORE (obstructive sleep apnea) Start: 04-15-2025 End: 04-15-2025 ambulatory Tab Barfield DO Work Phone: [facility] Work Phone: Start: 04-15-2025 End: 04-15-2025 Patient encounter procedure Tab Barfield DO [facility] Work Phone: Start: 04-10-2025 End: 04-10-2025 Transcribe Orders Tab Barfield DO Work Phone: Referring Physician Comment on above: Superior pulmonary s ulcus syndrome, right (HCC) (Primary Dx); Mucopurulent chronic bronchitis (HCC); THEODORE (obstructive sleep apnea) Start: 04-04-2025 End: 04-04-2025 ambulatory GABE BANERJEE Facility:[facility] Start: 03-28-2025 Non-patient / [facility] Work [facility]: Start: 03-28-2025 End: 03-28-2025 ambulatory TAB BARFIELD Facility:[facility] Start: 03-25-2025 End: 03-25-2025 Office outpatient new 30 minutes Vivek Dhillon MD Work Phone: [facility] Comment on above: Prurigo nodularis (P rimary Dx); Inflamed seborrheic keratosis Start: 03-25-2025 End: 03-25-2025 ambulatory VIVEK DHILLON Not Available Start: 03-25-2025 End: 03-25-2025 Cande Dhillon MD Work Phone: [facility] Start: 03-25-2025 End: 03-25-2025 Cande Dhillon MD Work Phone: [facility] Start: 12-23-2024 End: 12-23-2024 ambulatory [facility] Work Phone: Start: 12-23-2024 End: 12-23-2024 Patient encounter procedure [facility] Physician [facility] Work Phone: Start: 04-23-2024 End: 04-23-2024 ambulatory [facility] Work Phone: Start: 04-23-2024 End: 04-23-2024 Patient encounter procedure [facility] Physician [facility] Work Phone: Start: 03-29-2024 End: 04-01-2024 Patient encounter procedure Gabe Banerjee MD Work Phone: Radiation Oncology Comment on above: Malignant neoplasm o f prostate (HCC) (Primary Dx) Start: 03-20-2024 Non-patient / Non-visit [facility] Physician [facility] [employer] Work Phone: Start: 12-22-2023 End: 12-22-2023 ambulatory [facility] Work Phone: Start: 12-22-2023 End: 12-22-2023 Patient encounter procedure [facility] Physician [facility] Work Phone: Start: 09-12-2023 End: 09-12-2023 ambulatory Tab Barfield Other [employer] Other Start: 09-12-2023 Office outpatient vi sit 15 minutes Tab Barfield [facility] Start: 07-13-2023 End: 07-13-2023 ambulatory Tab Barfield Other [employer] Other Start: 07-13-2023 Telephone encounter Tab Barfield [facility] Start: 06-28-2023 End: 06-28-2023 ambulatory Tab Ball Other [employer] Other Start: 06-28-2023 Telephone encounter Tab Barfield [facility] [employer] Start: 06-26-2023 End: 06-26-2023 ambulatory Tab Ball Other [employer] Other Start: 06-26-2023 Telephone encounter Tab Ball [facility] Start: 06-22-2023 Telephone encounter Tab Barfield [facility] Start: 06-22-2023 End: 06-22-2023 ambulatory Jamar Wray Facility:[facility] Start: 06-22-2023 End: 06-22-2023 Admission to same day surgery center DO Tab Ball Work Phone: [facility] Work Phone: Start: 06-22-2023 End: 06-22-2023 ambulatory DO Tab Ball Work Phone: [facility] Work Phone: Start: 06-20-2023 End: 06-20-2023 ambulatory Tab Ball Other [employer] Other Start: 06-20-2023 Office outpatient vi sit 15 minutes Tab Ball [facility] Start: 06-20-2023 Telephone encounter Tab Ball [facility] Start: 05-29-2023 End: 05-29-2023 ambulatory Tab Ball Other [employer] Other Start: 05-29-2023 Telephone encounter Tab Ball [facility] Start: 05-22-2023 End: 05-22-2023 ambulatory Tab Ball Other [employer] Other Start: 05-22-2023 Telephone encounter Tab Ball [facility] Start: 05-18-2023 End: 05-18-2023 ambulatory Tab Ball Other [employer] Other Start: 05-18-2023 Telephone encounter [facility] Start: 05-09-2023 End: 05-09-2023 ambulatory Tab Barfield Other [employer] Other Start: 05-09-2023 Telephone encounter [facility] Start: 05-02-2023 End: 05-02-2023 ambulatory Tab Barfield Other [employer] Other Start: 05-02-2023 Office outpatient vi sit 25 minutes Tab PECK [facility] Start: 04-27-2023 End: 04-27-2023 ambulatory Juan Jose Flores MD Work Phone: Pulmonary Medicine Start: 04-27-2023 Chart abstracting Adela ([facility]) Jaiden Work Phone: Pulmonary Medicine Start: 04-27-2023 End: 05-04-2023 Patient encounter procedure Juan Jose Flores MD Work Phone: [facility] Comment on above: PAH (pulmonary arter y hypertension) (HCC) (Primary Dx); Exercise intolerance Start: 04-27-2023 Telephone encounter [facility] Start: 04-18-2023 Telephone encounter Jayden Cervantes MA [facility] Medicine Comment on above: Appointment Confirma tion Start: 03-24-2023 End: 03-24-2023 ambulatory Tab [facility] Other [employer] Other Start: 03-24-2023 Telephone encounter [facility] Start: 03-21-2023 End: 03-21-2023 ambulatory Tab Barfield Other [employer] Other Start: 03-21-2023 Telephone encounter [facility] Start: 02-06-2023 End: 02-06-2023 ambulatory Tab Barfield Other [employer] Other Start: 02-06-2023 Telephone encounter Tab [facility] Start: 01-19-2023 Chart abstracting Kaitlin Murcia APRN.GRIDCAP MACHINE OPERATOR Work Phone: Pulmonary Medicine Comment on above: Opened In Error Start: 01-10-2023 End: 01-10-2023 ambulatory Tab Barfield Other [employer] Other Start: 01-10-2023 Telephone encounter [facility] Start: 12-27-2022 End: 12-27-2022 ambulatory Tab Barfield Other [employer] Other Start: 12-27-2022 Telephone encounter [facility] Start: 12-26-2022 End: 12-26-[address] TAB BARFIELD Facility:[facility]1 Start: 12-23-2022 Telephone encounter No One (Historic al) Referring Physician Comment on above: External Referrals/r esources Start: 12-20-2022 End: 12-20-2022 ambulatory Tab Barfield Other [employer] Other Start: 12-20-2022 Patient encounter procedure Tab [facility] Start: 06-15-2022 End: 06-16-2022 ambulatory MELANIE SAMSA . Facility:[facility] Start: 06-02-2022 End: 06-03-2022 ambulatory MELANIE SAMSA . Facility:[facility] Start: 05-27-2022 End: 05-28-2022 ambulatory MELANIE SAMSA . Facility:[facility] Start: 05-04-2022 End: 05-05-2022 ambulatory MELANIE SAMSA . Facility:[facility] Start: 04-27-2022 End: 04-28-2022 ambulatory MELANIE SAMSA . Facility:[facility] Start: 04-05-2022 Adult health examination Yo Barfield Other [employer] Other Start: 03-24-2022 End: 03-24-2022 Patient encounter procedure Gabe Banerjee MD Work Phone: Radiation Oncology Comment on above: Prostate cancer (HCC ) (Primary Dx) Start: 03-07-2022 End: 03-08-2022 ambulatory MELANIE GAYLE . Facility: Procedures Date Procedure Procedure Detail Performing Clinician Start: 06-22-2023 Colonoscopy DO Tyron [facility]field Work Phone: Start: 04-27-2023 Right heart cath [...] for malign ant neoplasm of prostate Tab [facility]field Other Hyperlipidemia screening Edson Barfield Other Plan of Treatment Date Care Activity Detail Author Start: 04-10-2026 End: 04-10-2026 Patient encounter procedure 04/10/2026 2:00 PM EDT Office Visit Radiation Oncology [address] [place] [address] Gabe Banerjee MD [address] [place] [address] 2 yr rv Radiation Oncology Comment on above: 2 yr rv Start: 04-03-2026 End: 04-03-2026 Patient encounter procedure 04/03/2026 3:00 PM EDT Office Visit [facility] [address] [place] [address] [facility] Comment on above: PSA Lab Start: 03-03-2026 DIABETES SCREEN DIABETES SCREEN [facility] Start: 03-03-2026 Diabetes Screening Diabetes Screenaileen g [facility] Start: 08-01-2025 End: 08-01-2025 Patient encounter procedure 08/01/2025 2:15 PM EST Office Visit PULMONARY [address] [place] [place] [phone] [place] [address] [place] [address] 3 month follow up PULMONARY Comment on above: 3 month follow up Start: 08-01-2025 End: 08-01-2025 ambulatory PULMONARY Comment on above: Dx: Dyspnea on exert ion [R06.09] SPIROMETRY WITH DILA TOR IF OBSTRUCTED [[id number]] Start: 07-24-2025 End: 07-24-2025 Patient encounter procedure 07/24/2025 2:15 PM EST Appointment Radiology Pet CT [address] [place] [address] CT CHEST WO IV Radiology Pet CT Comment on above: CT CHEST WO IV Start: 06-14-2025 End: 05-22-2026 CT Chest WO contrast CT CHEST WO IVCON Radiology Routine Multiple lung nodules History of lung cancer Expected: 06/14/2025, Expires: 05/22/2026 [facility] Comment on above: Expected: 06/14/2025 , Expires: 05/22/2026 Start: 04-14-2025 Influenza vaccination Influenza Vacc ine (#1) [facility] Start: 04-04-2025 End: 04-04-2025 Patient encounter procedure 04/04/2025 2:00 PM EDT Office Visit Radiation Oncology [address] [place] [address] Gabe Banerjee MD [address] [place] [address] 2 yr rv Radiation Oncology Comment on above: 2 yr rv Start: 03-29-2025 End: 06-28-2025 Prostate specific Ag [Mass/volume] in Serum or Plasma PROSTATE-SPECIFIC ANTIGEN DIAGNOSTIC Lab Routine Malignant neoplasm of prostate (HCC) Expected: 03/29/2025, Expires: 06/28/2025 [facility] Work Phone: Comment on above: Expected: 03/29/2025 , Expires: 06/28/2025 Start: 03-28-2025 End: 03-28-2025 Patient encounter procedure 03/28/2025 1:00 PM EDT Office Visit [facility] [address] [place] [address] [place] [address] [facility] Comment on above: lab Start: 03-25-2025 End: 03-25-2025 Patient encounter procedure 03/25/2025 3:05 PM EDT Office Visit [facility] [address] [place] [phone] Vivek Dhillon MD [address] [place] [address] Arrived [facility] Comment on above: Arrived Start: 08-14-2024 Advance Directive Discussion Advance Directive Discussion [facility] Start: 04-14-2024 Influenza vaccination Influenza Vacc ine (#1) [facility] Start: 02-17-2024 DIABETES SCREEN DIABETES SCREEN [facility] Start: 10-29-2023 Covid-19 Vaccine ( season) Covid-19 Vaccine ( season) [facility] Start: 08-14-2023 Advance Directive Discussion Advance Directive Discussion [facility] Start: 06-22-2023 [facility] Start: 04-14-2023 Influenza vaccination [facility] Start: 03-24-2023 End: 05-24-2023 Prostate specific Ag [Mass/volume] in Serum or Plasma PSA/PROSTSPECAG DIAG Lab Routine Prostate cancer (HCC) Expected: 03/24/2023, Expires: 05/24/2023 [facility] Work Phone: Comment on above: Expected: 03/24/2023 , Expires: 05/24/2023 Start: 01-16-2023 ambulatory Ambulatory Facility:H 1 Start: 11-02-2022 COVID-19 VACCINE (6 - Pfizer series) COVID-19 VACCINE (6 - Pfizer series) [facility] Start: 08-14-2022 ADVANCE DIRECTIVE DISCUSSION ADVANCE DIRECTIVE DISCUSSION [facility] Start: 08-14-2022 DEPRESSION ASSESSMENT DEPRESSION ASS ESSMENT [facility] Start: 05-04-2022 COVID-19 VACCINE (5 - Booster for Pfizer series) COVID-19 VACCINE (5 - Booster for Pfizer series) [facility] Start: 04-14-2022 Influenza vaccination INFLUENZA (#1) [facility] Start: 03-25-2022 Adult depression screening assessment DEPRESSION SCREENING [facility] Start: 08-14-2021 ADVANCE DIRECTIVE DISCUSSION ADVANCE DIRECTIVE DISCUSSION [facility] Start: 06-05-2014 Urine microalbumin profile DTaP,Tdap,Td Vaccine (1 - Tdap) [facility] Start: 2011 PNEUMOCOCCAL: 65+ (1 - PCV) PNEUMOCOCCAL: 65+ (1 - PCV) [facility] Start: 09-14-2011 Medicare Annual Well ness Visit Medicare Annual Wellness Visit [facility] Start: 1996 SHINGRIX VACCINE (1 of 2) CARRIZALES GRIX VACCINE (1 of 2) [facility] Start: 1991 COLOGUARD (FIT-DNA) COLOGUARD (FIT-D NA) [facility] Start: 1991 Colonoscopy COLONOSCOPY [facility] Start: 1991 COLORECTAL CANCER SCREENING COLORECTAL CANCER SCREENING [facility] Start: [address] COLONOGRAPHY [facility] Start: 1991 FECAL OCCULT BLOOD FECAL OCCULT BLOO D [facility] Start: 1991 SIGMOIDOSCOPY SIGMOIDOSCOPY [facility] Start: 1981 LIPID SCREEN LIPID SCREEN [facility] Start: 1965 Urine microalbumin profile [facility] Start: 1964 Anxiety Screening Anxiety Screening [facility] Start: 1964 Depression Screening Depression Scre ening [facility] Start: 1964 HEPATITIS C SCREENING HEPATITIS C SC REENING [facility] Start: 1964 Hepatitis C screening Hepatitis C [facility] metabo lic 2000 panel - Serum or Plasma [facility] End: 04-22-2026 Echocardiography ECHO Cardiology Routine Dyspnea on exertion 1 Occurrences starting 04/22/2025 until 04/22/2026 [facility] Work Phone: Comment on above: 1 Occurrences starti ng 04/22/2025 until 04/22/2026 End: 05-22-2026 OXIMETRY WITH AMBULATION OXIMETRY WITH AMBULATION PFT Routine Chronic obstructive pulmonary disease, unspecified COPD type (HCC) Dyspnea on exertion 1 Occurrences starting 04/22/2025 until 05/22/2026 [facility] Comment on above: 1 Occurrences starti ng 04/22/2025 until 05/22/2026 Patient Education Colon polyps [facility] Work Phone: Pulmonary rehabilita tion pro CONSULT PULMONARY REHABILITATION PROGRAM Procedures Routine Chronic obstructive pulmonary disease, unspecified COPD type (HCC) Ordered: 04/22/2025 [facility] Comment on above: Ordered: 04/22/2025 End: 05-22-2026 SPIROMETRY WITH DILATOR IF OBSTRUCTED SPIROMETRY WITH DILATOR IF OBSTRUCTED PFT Routine Chronic obstructive pulmonary disease, unspecified COPD type (HCC) 1 Occurrences starting 04/22/2025 until 05/22/2026 [facility] Comment on above: 1 Occurrences starti ng 04/22/2025 until 05/22/2026 [facility] Immunizations Immunization Date Immunization Notes Care Provider Fa cilimargareth 04-15-2025 influenza, high dose seasonal, preservative-free Tab [facility]field DO Work Phone: [facility] 04-23-2024 influenza, high dose seasonal, preservative-free [facility] 04-23-2024 influenza virus vaccine, unspecified formulation Vivek Dhillon MD Work Phone: [facility] 05-02-2023 influenza, high dose seasonal, preservative-free Tab Barfield Other [employer] Other 05-02-2023 influenza virus vaccine, unspecified formulation [facility] 07-05-2022 COVID-19 Pfizer (bivalent) Tab Barfield Other [facility] 05-06-2022 influenza (aIIV4) vaccine, age 65+ yr, quadrivalent, PF (FLUAD QUAD) Jayden Cervantes MA [facility] 05-06-2022 influenza virus vaccine, split virus (incl. purified surface antigen) Tab Barfield Other [facility] Other 05-06-2022 influenza, high dose seasonal, preservative-free Tab Barfield Other [facility] Other 05-06-2022 influenza virus vaccine, unspecified formulation Juan Jose Flores MD Work Phone: [facility] 04-06-2022 Prevnar 20 Tab Barfield Other [facility] 03-09-2022 COVID-19 Pfizer Tab Carrillo l Other [facility] 05-21-2021 Do not use COVID-19 Pfizer 2 dose Tab Barfield Other [facility] 05-05-2021 influenza virus vaccine, split virus (incl. purified surface antigen) Tab Barfield Other [facility] Other 05-05-2021 influenza virus vaccine, unspecified formulation [facility] 05-05-2021 Seasonal trivalent influenza vaccine, adjuvanted, preservative free Gabe Banerjee MD Work Phone: [facility] 10-07-2020 COVID-19 vaccine, ag e 12+ yr (PFIZER-BIONTECH - PURPLE TOP) Gabe Banerjee MD Work Phone: [facility] 09-17-2020 COVID-19 vaccine, ag e 12+ yr (PFIZER-BIONTECH - PURPLE TOP) Gabe Banerjee MD Work Phone: [facility] 04-27-2020 influenza virus vaccine, split virus (incl. purified surface antigen) Tab Barfield Other [facility] Other 04-27-2020 influenza virus vaccine, unspecified formulation [facility] 05-01-2019 AS03 adjuvant Gabe Banerjee MD Work Phone: [facility] 05-01-2019 Seasonal trivalent influenza vaccine, adjuvanted, preservative free Gabe Banerjee MD Work Phone: [facility] 06-16-2017 influenza virus vaccine, split virus (incl. purified surface antigen) Tab Barfield Other [facility] Other 06-16-2017 influenza virus vaccine, unspecified formulation [facility] 06-04-2014 tetanus and diphther ia toxoids, adsorbed, preservative free, for adult use (5 Lf of tetanus toxoid and 2 Lf of diphtheria toxoid) Tab Barfield Other [facility] 05-08-2013 tetanus and diphther ia toxoids, adsorbed, preservative free, for adult use (5 Lf of tetanus toxoid and 2 Lf of diphtheria toxoid) Tab Barfield Other [facility] pneumococcal Conjuga te, unspecified formulation; Translations: [Need for prophylactic vaccination against Streptococcus pneumoniae (pneumococcus)] Tab Barfield Other [facility] Other Payers Date Payer Category Payer Self-pay [id number] 2019 Private Health Insurance [id number] 2019 Unknown MMO MMO MEDICARE SUPPLEMENT [id number] 2019-Present [phone] [address] [place] [address] Indemnity [id number] 2011 Medicare [id number] 1959 Medicare [id number] 1959 Unknown [id number] 1946 Unknown [id number] 593 1946 Unknown [id number]. 593 1946 Unknown [id number]. 593 1946 Unknown [id number]. 593 1946 Unknown [id number]. 593 1946 Unknown [id number]. 593 1946 Unknown [id number]. 593 1946 Unknown [id number] 593 1946 Unknown [id number] 1259 Unknown [employer] [id number] Unknown [id number] 531 Social History Date Type Detail Facility Start: 03-24-2022 End: 04-04-2025 Tobacco smoking status NHIS Ex-smoker [facility] Start: 12-09-1967 End: 12-08-1997 History of tobacco use Current smoker [facility] Start: 12-09-1967 End: 12-08-1997 History of tobacco use Cigarette Smoker [facility] Start: 03-24-2022 End: 03-03-2023 Cigarettes smoked current (pack per day) - Reported 2 [facility] Start: 03-24-2022 End: 04-04-2025 Tobacco use and exposure Smokeless tobacco non-user [facility] Start: 03-24-2022 End: 04-22-2025 Alcohol intake Current drinker of alcohol (finding) [facility] Start: 1945 Sex Assigned At Not on file [facility] Start: 03-14-2022 End: 03-24-2022 Exposure to SARS-CoV-2 (event) Not sure [facility] Start: 03-03-2023 End: 04-04-2025 Sex Assigned At [facility] Start: 11-23-2017 Adult Depression Screening Assessment 0 [facility] Start: 1945 Sex Assigned At Male F [facility] Start: 12-23-2024 Sex Male (finding) [facility] Start: 03-25-2025 Tobacco smoking status NHIS Tobacco smoking consumption unknown [facility] NEGATED: Highlighted rowStart: NINF History of tobacco use Passive smoker [facility] Medical Equipment Procedure Code Equipment Code Equipment Origin al Text Equipment Identifier Dates use 1 strip to check glucose once daily Start: 01-23-2023 Comment on above: use 1 strip to check glucose once daily Blood Sugar Diagnostic (Contour Test Strips) strip Start: 02-08-2024 Blood Sugar Diagnostic (Contour Test Strips) strip Start: 01-30-2024 End: 02-04-2024 Blood Sugar Diagnostic (Contour Test Strips) strip Start: 02-04-2024 End: 02-08-2024 Blood Sugar Diagnostic (Contour Test Strips) strip Start: 01-30-2024 End: 01-30-2024 Blood Sugar Diagnostic (Contour Test Strips) strip Start: 01-30-2024 End: 01-30-2024 Blood Sugar Diagnostic (Contour Test Strips) strip Start: 08-06-2024 Blood Sugar Diagnostic (Contour Test Strips) strip Start: 01-30-2024 End: 02-04-2024 Blood Sugar Diagnostic (Contour Test Strips) strip Start: 02-04-2024 End: 02-08-2024 Blood Sugar Diagnostic (Contour Test Strips) strip Start: 02-08-2024 End: 08-06-2024 Blood Sugar Diagnostic (Contour Test Strips) strip Start: 01-30-2024 End: 01-30-2024 Blood Sugar Diagnostic (Contour Test Strips) strip Start: 01-30-2024 End: 01-30-2024 Blood Sugar Diagnostic (Contour Test Strips) strip Start: 08-06-2024 Blood Sugar Diagnostic (Contour Test Strips) strip Start: 01-30-2024 End: 02-04-2024 Blood Sugar Diagnostic (Contour Test Strips) strip Start: 02-04-2024 End: 02-08-2024 Blood Sugar Diagnostic (Contour Test Strips) strip Start: 02-08-2024 End: 08-06-2024 Blood Sugar Diagnostic (Contour Test Strips) strip Start: 01-30-2024 End: 01-30-2024 Blood Sugar Diagnostic (Contour Test Strips) strip Start: 01-30-2024 End: 01-30-2024 Goals Date Patient Goal Desired Activity /State Clinical Notes 03-24-2022 to 04-22-2025 Patient InstructionsMary Berman MD - 04/22/2025 2:45 PM EDTEmicarlos Dhillon MD - 03/25/2025 3:05 PM EDT Note Date & Type Note Facility 04-22-2025 Instructions Mary Berman MD - 04/22/2025 3:31 PM [...] obtaining prior authorization if needed. Please call if the cost is too high when you go to cotton picker operator the prescription at your pharmacy. - Continue using your rescue inhaler (albuterol) as needed, especially 30 minutes before activities like mowing the lawn. This can help reduce shortness of breath during exertion. - Pulmonary rehabilitation may help improve your breathing and teach you techniques to manage your symptoms. I will provide an order for pulmonary rehab. Please check if there is a program available near you. If you would like to come to [place] or go to [place] for this, please [...] recommend an echocardiogram (ultrasound of the heart) to evaluate your heart function. I will provide an order for this test. Please schedule it at your convenience. - You may also benefit from a follow-up with a facilities mechanical design engineer. Please discuss this with your primary care physician at your next visit. We discussed additional testing: - It has been two years since your last pulmonary function test and walk test. I will provide orders for these tests to reassess your lung function and oxygen levels. Please schedule these tests when convenient. Please follow up with me in about 3 months after completing your tests or sooner if your symptoms worsen. documented in this encounter [facility] 04-22-2025 History of Presen t illness Narrative NEW PATIENT OFFICE VISIT Jacinta Robles is a 79 year old male who presents for evaluation of chronic bronchitis/COPD. Jacinta has a history of lung cancer s/p RUL lobectomy about 3 years ago as well as asthma/COPD who presents with chronic dyspnea. He reports chronic dyspnea that has been ongoing for several years. He states he had mild asthma as a child, never used inhalers for it though. [...] knew what was helping or not. He is currently using Advair and a rescue inhaler, which he uses more frequently now, especially before activities like mowing the lawn. He notes that the rescue inhaler provides some relief, but not profound. He feels overall Trelegy worked best for him. He reports occasional wheezing, which is more noticeable to his , and a rare cough that is more prominent in the mornings, producing white phlegm. He has a history of hay fever and takes allergy medications, including loratadine and cetirizine, as well as montelukast daily. He denies frequent bronchitis or respiratory infections. He cannot recall every taking prednisone for an exacerbation or bronchitis. Jacinta has a significant smoking history, having smoked from the age of 17 to approximately 41 years old, but he quit over 20 years ago. He has not been on oxygen therapy since his surgery and reports that his home pulse oximeter readings are consistently in the 90s. Jacinta also has a history of sleep apnea and uses a CPAP machine regularly. He reports that he is due for a follow-up CT scan in June, as his previous cost accounting manager was monitoring small nodules in his lungs [...] mg tablet amLODIPine (NORVASC) 5 mg tablet uyurchhboix-hnwvmdjvs-lypthvke (TRELEGY ELLIPTA) 100-62.5-25 mcg inhalation powder Inhale 1 puff as instructed once daily. 1 each 11 No current [...] was provided and he will inquire with [facility] about this. I recommend staying up to date on preventive vaccinations - pneumonia vaccinations, annual influenza vaccinations, and covid boosters. He should also receive RSV vaccination. I recommend masking when in public during cold and flu season. 2) Hx of lung cancer s/p resection in [place] 3-[address] ordered today [...] evaluation. Echo ordered today. He will follow up with PCP as well about this. The above plan was discussed with the patient and all questions were answered. I will see Mrs. Robles for follow-up in 3 months or sooner if needed. Mary Berman MD Pulmonary and Critical Care Medicine [facility] Respiratory Yolyn Recording using [employer] software for draft documentation of the visit was discussed with the patient/authorized printing supplies sales representative; all questions welcomed and answered. Patient/authorized printing supplies sales representative agreed to proceed documented in this encounter [facility] 03-25-2025 History of Presen t illness Narrative Lesions: Location: left upper back Duration: years Quality: itchy and uncomfortable Modifying factors: aggravated by picking Associated symptoms: ' mole' Treatments: none New patient Location # 2: right thigh Duration: months Quality: itchy Modifying factors: aggravated by picking Associated symptoms: rough Treatments: none All pertinent medical history, medications, and allergies were reviewed. 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 Flaring today Patient counseled on prurigo nodularis. Instructed to refrain from scratching or picking itchy bumps on skin. Educational handout given. Start betamethasone bid prn for itch, hold if clear. Notify office if flaring despite treatment. betamethasone dipropionate 0.05 % cream - Right Thigh - Anterior Apply to affected areas, up to twice a day when flared, do not use one the face, groin, or underarms, 30 day supply 2. INFLAMED SEBORRHEIC KERATOSIS Left Upper Back Stuck on verrucous, cross-brown papules and plaques. Patient was counseled regarding these benign growths. Removal is normally not necessary, but they may be removed if they are symptomatic or for cosmetic reasons. curettage Indication: Inflamed seborrheic keratosis Location: left upper back Consent: Consent was obtained from the patient. The risks, benefits and alternatives to therapy were discussed in detail. Specifically, the risks of infection, scarring, bleeding, prolonged would healing, nerve injury, incomplete removal, allergy to anesthesia and recurrence were addressed. Prior to the procedure, the treatment site was clearly identified and confirmed by the patient. Method: The area was cleansed with Hibiclens, local anesthesia was achieved with 1% lidocaine with epinephrine and 1:10 solution of 8.4% of sodium bicarbonate. Quantity: 1 cc The lesion was removed by curettage. Hemostasis achieved by: Aluminum chloride Post-op: A dressing was applied. Wound care instructions were reviewed and written instructions were given. Next Visit: prn documented in this encounter [facility] 12-23-2024 Evaluation note Diagnosis Onset Date Resolution Chronic kidney disease acute Ma y 2024 1:57pm Hypercholesterolemia acute December 23, 2024 1:57pm Hypertension acute December 23 1:57pm Major depression acute December 1:57pm Obesity acute December 23, 2024 1:57pm THEODORE (obstructive sleep apnea) acute December 23, 2024 1:57pm Restrictive lung disease acute December 23, 2024 1:57pm Type 2 diabetes mellitus with hyperglycemia acute December 23 1:57pm Medicare annual wellness visit, subsequent noneactive December 23, 2024 1:57pm [facility] Work Phone: 1(257) 561-566008-16-2024 History of Present illness Narrative* Gabe Banerjee MD - 03/29/2024 2:16 PM EDT Radiation Oncology - Follow Up Note PATIENT NAME: Jacinta Robles PATIENT DIAGNOSIS/PATIENT IDENTIFICATION: Mr. Robles is a 78-year old gentleman with Stage IIIA, [id number] adenocarcinoma of the prostate; high recurrence risk (cT1c, PSA 5.7, GS 4+4=8/10). Prostate MRI showed no evidence of seminal vesicle invasion or extracapsular extension or pelvic lymphadenopathy. He completed a course of definitive EBRT on 03/30/2018 (7920 cGy in 44 fractions) with ADT (18 months). INTERVAL HISTORY/ROS: Mr. Robles returns to clinic today for routine follow- up approximately six years after the completion of [...] a 78-year old gentleman with Stage IIIA, [id number] adenocarcinoma of the prostate; high recurrence risk [...] which included preparing to see the patient, [id number] patient care, and counseling and educating the patient/family/caregiver. This document has been created with the use of voice recognition technology. It may contain inaccuracies, misspellings, inaccurate syntax or inappropriate word context that are a result of the inadequacies/shortcomings of said technology/software. documented in this encounterReg[facility] Evaluation note* Encounter Date Diagnosis Assessment Notes Treatment Notes Treatment Clinical Notes Aug, Primary hypertension (ICD-10 - I10) [...] adequate fluid balance and to avoid dehydration. [employer] Other [id number] Procedure [facility]11-07-2023 Evaluation note* Encounter Date Diagnosis Assessment [...] infection Also increases risk for fungal infection [employer] Other 11-07-2023 Evaluation note* Encounter Date Diagnosis Assessment Notes Treatment Notes Treatment Clinical Notes Jun, Acute diffuse otitis externa of left ear (ICD-10 - H60.312) [employer] Other 10-16-2023 Evaluation note* Encounter Date Diagnosis Assessment Notes Treatment Notes Treatment Clinical Notes May, Type 2 diabetes mellitus with hyperglycemia, without long-term current use of insulin (ICD-10 - E11.65) [employer] Other 10-09-2023 Evaluation note* Encounter Date Diagnosis Assessment Notes Treatment Notes Treatment Clinical Notes May, Rectal cancer (ICD-10 - C20) Malignant rectal polyp, completely excised 02/2021 [employer] Other 09-26-2023 Evaluation note* Encounter Date Diagnosis Assessment Notes Treatment Notes Treatment Clinical Notes Apr, Type 2 diabetes mellitus with hyperglycemia, without long-term current use of insulin (ICD-10 - E11.65) [employer] Other 09-19-2023 Evaluation note* Encounter Date Diagnosis [...] GLP-1 for added benefit of weight loss Apr, Primary hypertension (ICD-10 - I10) This patient [...] use, the patient reduces the risk for NE, CVA, HTN, cardiac dysrhythmias and sudden cardiac [...] > [address] scan [employer] Other 09-14-2023 Evaluation note* Encounter Date Diagnosis Assessment Notes Treatment Notes Treatment Clinical Notes Apr, Pulmonary hypertension (ICD-10 - I27.20) RHC: post capillary PH [employer] Other 09-14-2023 History of Present illness Narrative* Juan Jose [...] Staff involved: Juan Jose Flores MD Nurse(s): Bryan Darling RN Mira Mac RN and Thais Sanches RN Procedure(s): Right Heart Catheterization. Right Heart Catheterization Indications: Exercise intolerance Pre Procedure Diagnosis: Preload insufficiency. Post Procedure Diagnosis: Postcapillary PH. Respiratory limitation. Medications: No negative chronotropic agents. Access site: Right internal jugular vein Austin Minna size: 7.5 F. Anesthesia: Lidocaine 1% Procedure Narrative: Consent was obtained. Time out taken. Performed at procedure room in G61. Under sterile condition, lidocaine 1 % (0.2 ml) was applied and under US guidance with Seldinger technique a left radial arterial line was placed without difficulties. Under sterile condition, lidocaine 1 % (4.8 mL) was applied and under US guidance a 8.5 F introducer was inserted without difficulty. Wire was noted to be located in the SVC under fluoroscopy. A Austin-Minna catheter was advanced to the right pulmonary [...] 34 69 39 36 13 13.5 12.6 6.94586 20 7.39 94 75 1 35 48 29 41 25 13.8 13.3 9.55981 40 7.38 93 75 1.2 33 45 28 45 28 13.3 13.7 8.95037 60 7.38 93 71 1.8 35 40 27 47 35 13.7 13.9 9.67396 80 7.37 93 74 2.9 36 40 28 50 33 14.1 13.8 10.71194 100 7.35 91 69 3.6 36 33 26 54 39 14.5 14.4 11.55090 1 min recovery 7.34 95 96 4.6 [...] at 1:32 PM. CC: documented in this encounterRegency Hospital [facility]09-14-2023 History of Present illness Narrative* Adela Hwang - 04/27/2023 1:29 PM EDTSummary: Research IRB#[id number] IRB #[id number] Study Title: Comparing hemodynamic response to fluid challenge and exercise in patients with pulmonary hypertension Substation Engineer: Dr. Juan Jose Flores M.D. Drop Forger: Adela Hwang Research Consent Patient scheduled for [...] was discharged from study. Adela Hwang, Clinical Databases Software Consultant April 27, 2023 documented in this encounterRegency Hospital [facility]09-05-2023 Miscellaneous Notes* Telephone Encounter - Jayden Cervantes MA - 04/18/2023 10:53 AM EDTSummary: Appointment Confirmation Called patient to confirm his iCPET with Dr. Flores on 04/27 at 1pm. NPO 4 hours pre-procedure. Anticoagulation:None at this time Must have a cmv driver for transportation post procedure. May take other medications as prescribed prior to procedure. Check in at desk G-11 at 12:30pm Jayden Cervantes Clinical Concrete Paving Supervisor [facility] Respiratory Yolyn documented in this encounterRegency Hospital [facility]08-08-2023 Evaluation note* Encounter Date Diagnosis Assessment Notes Treatment Notes Treatment Clinical Notes Mar, Restless leg syndrome (ICD-10 - G25.81) [employer] Other 06-08-2023 History of Present illness Narrative* Kaitlin Murcia APRN.GRIDCAP MACHINE OPERATOR - 01/19/2023 4:07 PM EDT Open in error documented in this encounterRegency Hospital [facility]05-30-2023 Evaluation note* Encounter Date Diagnosis Assessment Notes Treatment Notes Treatment Clinical Notes December, Primary hypertension (ICD-10 - I10) [employer] Other 05-12-2023 Miscellaneous Notes* Telephone Encounter - Huey Wisdom - 12/23/2022 9:17 AM EDT Placed call to pt to sched new appt w/ CHF, no answer left VM with call back # to [facility] scheduling line * Telephone Encounter - Thu Valladares Pss - 12/23/2022 6:31 AM EDT Patient: Jacinta Robles Date of : 1945 Patient phone number: [phone] Referring Provider for the encounter: Dr Tab Barfield Requesting Provider: Cardiology Reason for requesting visit (RFV/signs and symptoms/diagnosis): Pulmonary Hypertension Person calling: caregiver: PHUONG Return call to: self Medical Records/Insurance Card scanned into Nipendo: Yes Comments: Additional documents available through OnBase. documented in this encounterRegency Hospital [facility]05-09-2023 Evaluation note* Encounter Date Diagnosis Assessment Notes [...] use, the patient reduces the risk for NE, CVA, HTN, cardiac dysrhythmias and sudden cardiac [...] and exercise. Reviewed age-appropriate preventive testing recommended. [employer] Other 08-11-2022 History of Present illness Narrative* Gabe Banerjee MD - 03/24/2022 11:51 PM EDT Radiation Oncology - Follow Up Note PATIENT NAME: Jacinta Robles PATIENT Signed by: Gabe Banerjee MD I spent a total of 20 minutes on the date of the service which included preparing to see the patient, [id number]-sm-[id number] patient care, and counseling and educating the patient/family/caregiver. This document has been created with the use of voice recognition technology. It may contain inaccuracies, misspellings, inaccurate syntax or inappropriate word context that are a result of the inadequacies/shortcomings of said technology/software. [facility]* Diagnosis Prostate cancer (HCC)- Primary Malignant neoplasm of prostate [facility] noteNo InformationNortSpecial Care Hospital [facility] Semi Other Evaluation note* Diagnosis Exercise intolerance- Primary Other general symptoms documented in this encounter [facility] note* Diagnosis PAH (pulmonary artery hypertension) (HCC)- Primary Other chronic pulmonary heart diseases Exercise intolerance Other general symptoms documented [facility] noteNo assessment information availableMount Carmel Health System Work Phone: Evaluation note* Diagnosis Onset Date Resolution Status Hypercholesterolemia acute Hypertension acute Major depression acute THEODORE (obstructive sleep apnea) acute Type 2 diabetes mellitus with hyperglycemia acute Medicare annual wellness visit, subsequent noneactive [facility] Work Phone: Evaluation note* Diagnosis Malignant neoplasm of prostate (HCC)- Primary Malignant neoplasm of prostate documented in [facility] encounter [facility] note* Diagnosis Onset Date Resolution Status Hypercholesterolemia acute Hypertension acute Major depression acute THEODORE (obstructive sleep apnea) acute Type 2 diabetes mellitus with hyperglycemia acute [facility] Work Phone: Evaluation note* Diagnosis 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 Inflamed seborrheic keratosis [facility] Diagnosis Superior pulmonary sulcus syndrome, right (HCC)- Primary Mucopurulent chronic bronchitis (HCC) Mucopurulent chronic bronchitis THEODORE (obstructive sleep apnea) Obstructive sleep apnea (adult) (pediatric) documented in this encounter [facility]* Diagnosis Chronic obstructive pulmonary disease, unspecified COPD type (HCC)- Primary Mucopurulent chronic bronchitis (HCC) Mucopurulent chronic bronchitis Dyspnea on exertion Other dyspnea and respiratory abnormality Multiple lung nodules Other nonspecific abnormal finding of lung field History of lung cancer Personal history of malignant neoplasm of bronchus and lung THEODORE (obstructive sleep apnea) Obstructive sleep apnea (adult) (pediatric) documented in this encounter [facility] EastHistory and physical note Author Jamar Wray [facility] June 22, 2023 11:35am Note Date/Time June 22, 2023 1 1:35am [facility] [address] [place] [address] Gastroenterology H&P Signed Patient: Jacinta Robles MR#: [id number] : 1945 Acct:[id number] Age/Sex: 77 / M Adm Date: 3 Loc: Room: Type: [facility] Attending Dr: Jamar Wray MD Copies to: [...] signed by Jamar Wray MD> 06/22/23 1135 [facility] Work Phone: History general Narrative - Reported* Type Description Date [...] RI GHT 2020 Hospitalization History SEE SURGICAL [employer] Other History general Narrative - Reported* Type Description Date [...] RI GHT 2020 Hospitalization History SEE SURGICAL [employer] Other History general Narrative - Reported* Type Description Date [...] Surgical History LOBECTOMY, LUNG, UPPER LOBE, RI T 2020 Surgical History [facility] 04/2023 Hospitalization History SEE SURGICAL [employer] Other [employer] general Narrative - Reported* Type Description Date [...] Surgical History LOBECTOMY, LUNG, UPPER LOBE, RI T 2020 Surgical History C 04/2023 Surgical History Colonoscopy w/ polyp ectomy, rectal AVM, repeat 3 years 06/2023 Hospitalization History SEE SURGICAL [employer] Other Hisarnb general Narrative - Reported* Type Description Date [...] RI GHT 2020 Surgical History [facility] 04/2023 Surgical History Colonoscopy w/ polyp ectomy, rectal AVM, sessile serrated polyp (repeat 3 years) 06/2023 Hospitalization History SEE SURGICAL HX [employer] Other Hospital Discharge instructions Additional Instructions DISCHARGE [...] NOT operate machinery such as power tools, Wild Needlen mowers, snow blowers, sewing machines, etc. for [...] years. -Follow up with PCP. -Office number [phone].[facility] Work Phone: Repuul for referral (narrative)* Reason Referral to [facility] Pulmonary Hypertension Clinic Diagnosis 1 Pulmonary hypertensi on (I27.20) Referral Organization [facility] linaixa Referring Provider First Name Tab Referring Provider Last Name Cavendish Referring Provider Specialty Internal Me dicine Referred Provider Specialty Cardiology Referral Priority Routine Catawiki [facility] Semi Other Reason for referral (narrative)* Reason 03/02/23 [facility] Diagnosis 1 Pulmonary hypertensi on (I27.20) Referral Organization [facility] Referring Provider First Name Tab Referring Provider Last Name Tyrese Referring Provider Specialty Internal Me dicine Referred Organization [facility] Referred Address [address],[address] Referred Provider Specialty Cardiology Referral Priority Routine Referral Appointment Date 2023-03-02 General Notes Marina Patel 01:15:19 PM >received today, attachments made, notes locked, referral faxed Marina Patel 12/28/2022 11:29:31 AM >fax first attempt letter Marina Patel 01/03/2023 07:57:58 AM >pt scheduled with Dr Shannon Gonzalez Clinical Notes F: [phone] / [phone] [facility] Semi Other Repbol for referral (narrative)* Reason Referral for surveil maryjo colonoscopy Diagnosis 1 Rectal cancer (C20) Referral Organization [facility] anupama Referring Provider First Name Tab Referring Provider Last Name Tyrese Referring Provider Specialty Internal Me dicine Referred Organization [facility] Referred Provider Jamar Wray Referred Address [address],[address] Referred Provider Specialty Gastroentero logy Referral Priority [...] He denies abdominal pain, melena or hematochezia. [employer] Other Reason for referral (narrative)No reason for referral information availableVan Wert [facility] Hospital Work Phone: Summary Purpose Family History Relationship Condition Age at Onset Recorded Date/T willy Not Specified No pertinent family history Unknown Advance Directives Advance Directive Response Recorded Date/ Time Advance Directives No April 9:27am Advance Directive Response Recorded Date/ Time Advance Directives No April 10:27am Chief Complaint and Reason for Visit Chief Complaint Hx of Colon Polyps Chief Complaint wellness Reason for Visit Hypercholesterolemia Hypertension Major depression THEODORE (obstructive sleep apnea) Type 2 diabetes mellitus with hyperglycemia Medicare annual wellness visit, subsequent Chief Complaint 4 month follow up Reason for Visit Hypercholesterolemia Hypertension Major depression THEODORE (obstructive sleep apnea) Type 2 diabetes mellitus with hyperglycemia Chief Complaint Admit Date wellness December 23, 2024 1:57p m Reason for Visit Admit Date Chronic kidney disease December 23, 2024 1: 57pm Hypercholesterolemia December 23, 2024 1:57 pm Hypertension December 23, 2024 1:57p m Major depression December 23, 2024 1:57p m Obesity December 23, 2024 1:57p m THEODORE (obstructive sleep apnea) December 23, 2024 1:57pm Restrictive lung disease December 23, 2024 1:57pm Type 2 diabetes mellitus with hyperglyce david December 23, 2024 1:57pm Medicare annual wellness visit, subseque nt December 23, 2024 1:57pm Chief Complaint Admit Date flu shot April 15, 2025 3:54pm Additional Source Comments Source Comments (unrecognize d section and content) In the event this informatio n is protected by the Federal Confidentiality of Alcohol and Drug Abuse Patient Records regulations: The Federal rules restrict any use of the information to criminally investigate or prosecute any alcohol or drug abuse patient.[facility] EastIn the event this information is protected by the Federal Confidentiality of Alcohol and Drug Abuse Patient Records regulations: The Federal rules restrict any use of the information to criminally investigate or prosecute any alcohol or drug abuse patient.[facility] EastIn the event this information is protected by the Federal Confidentiality of Alcohol and Drug Abuse Patient Records regulations: The Federal rules restrict any use of the information to criminally investigate or prosecute any alcohol or drug abuse patient.[facility] EastIn the event this information is protected by the Federal Confidentiality of Alcohol and Drug Abuse Patient Records regulations: The Federal rules restrict any use of the information to criminally investigate or prosecute any alcohol or drug abuse patient.[facility] EastIn the event this information is protected by the Federal Confidentiality of Alcohol and Drug Abuse Patient Records regulations: The Federal rules restrict any use of the information to criminally investigate or prosecute any alcohol or drug abuse patient.[facility] EastIn the event this information is protected by the Federal Confidentiality of Alcohol and Drug Abuse Patient Records regulations: The Federal rules restrict any use of the information to criminally investigate or prosecute any alcohol or drug abuse patient.[facility] EastIn the event this information is protected by the Federal Confidentiality of Alcohol and Drug Abuse Patient Records regulations: The Federal rules restrict any use of the information to criminally investigate or prosecute any alcohol or drug abuse patient.[facility] EastIn the event this information is protected by the Federal Confidentiality of Alcohol and Drug Abuse Patient Records regulations: The Federal rules restrict any use of the information to criminally investigate or prosecute any alcohol or drug abuse patient.[facility] EastIn the event this information is protected by the Federal Confidentiality of Alcohol and Drug Abuse Patient Records regulations: The Federal rules restrict any use of the information to criminally investigate or prosecute any alcohol or drug abuse patient.[facility] EastIn the event this information is protected by the Federal Confidentiality of Alcohol and Drug Abuse Patient Records regulations: The Federal rules restrict any use of the information to criminally investigate or prosecute any alcohol or drug abuse patient.[facility] Reason for Visit (unrecogniz ed section and content) Reason Comments Prostate Cancer 1 year follow up Reason Comments External Referrals/resources Reason Comments Opened In Error Reason Comments Appointment Confirmation Reason Comments Lab Orders Reason Comments Prostate Cancer Reason Comments Suspicious Skin Lesion Reason Comments Consult Specialty Diagnoses / Procedures Referred By Contac t Referred To Contact Pulmonary and Critical Care Medicine Diagnoses Superior pulmonary sulcus syndrome, right (HCC) Mucopurulent chronic bronchitis (HCC) THEODORE (obstructive sleep apnea) Procedures OFFICE/OUTPATIENT [facility] 60 MINUTES Tab Barfield DO [employer] [place] [address] Phone: tel: fax: Referral ID Status Reason Start Date Expiration Date V isits Requested Visits Authorized [id number] Closed PCP Requested Referral 04/10/2025 04/10/2026 1 1 Care Teams (unrecognized sec tion and content) Team Status: Active Member Role Status Dates Tab Barfield DO Primary Care Provider Active Team Status: Active Member Role Status Dates Tab Barfield DO Primary Care Provider Active Start: March 28, 2025 Gabe Banerjee MD Attending Provider Active Start: March 28, 2025 Team Status: Inactive Member Role Status Dates Tab Barfield DO Primary Care Provider Active Start: April 15, 2025 End: April 15, 2025 Tab Barfield DO Attending Provider Active Sta rt: April 15, 2025 End: April 15, 2025 Team Status: Inactive Member Role Status Dates Tab Barfield DO Primary Care Provide r, Attending Provider Active Start: December 23, 2024 End: December 23, 2024 Team Status: Active Member Role Status Dates Tab Barfield DO Primary Care Provider Active Start: March 20, 2024 Gabe Banerjee MD Attending Provider Active Start: March 20, 2024 Team Status: Inactive Member Role Status Dates Tab Barfield DO Primary Care Provide r, Attending Provider Active Start: April 23, 2024 End: April 23, 2024 Escalator Installer Relationship Specialty Start Date End Date Tab Barfield, DO [address] [place] [address] PCP - General Internal Medicine 11/23/17 Escalator Installer Relationship Specialty Start Date End Date Tab Barfield, DO [address] [place] [address] PCP - General Internal Medicine 11/23/17 Escalator Installer Relationship Specialty Start Date End Date Tab Barfield DO [address] [place] [address] PCP - General Internal Medicine 11/23/17 Escalator Installer Relationship Specialty Start Date End Date Tab Barfield DO [address] [place] [address] PCP - General Internal Medicine 11/23/17 Melanie Gayle DO [address] [place] [address] Pulmonary Disease 03/15/23 Escalator Installer Relationship Specialty Start Date End Date Tab Barfield DO [address] [place] [address] PCP - General Internal Medicine 11/23/17 Melanie Gayle DO [address] [place] [address] Pulmonary Disease 03/15/23 Escalator Installer Relationship Specialty Start Date End Date Tab Barfield DO [address] [place] [address] PCP - General Internal Medicine 11/23/17 Melanie Gayle DO [address] [place] [address] Pulmonary Disease 03/15/23 Escalator Installer Relationship Specialty Start Date End Date Tab Barfield DO [address] [place] [address] PCP - General Internal Medicine 11/23/17 Melanie Gayle DO [address] [place] [address] Pulmonary Disease 03/15/23 Team Status: Inactive Member Role Status Dates Tab Barfield DO Primary Care Provider Active Jamar Wray MD Attending Provider Active Team Status: Inactive Member Role Status Dates Tab Barfield DO Primary Care Provide r, Attending Provider Active Start: December 22, 2023 End: December 22, 2023 Escalator Installer Relationship Specialty Start Date End Date Tab Barfield DO [address] [place] [address] PCP - General Internal Medicine 11/23/17 Melanie Gayle DO [address] [place] [address] Pulmonary Disease 03/15/23 Escalator Installer Relationship Specialty Start Date End Date Tab Barfield DO [address] [place] [address] PCP - General Internal Medicine 11/23/17 Melanie Gayle, [address] [place] [address] Pulmonary Disease 03/15/23 Escalator Installer Relationship Specialty Start Date End Date TyreseTabDO [address] [place] [address] PCP - General Internal Medicine 11/23/17 Melanie Gayle DO [address] [place] [address] Pulmonary Disease 03/15/23 (unrecognized sect ion and content) No Status Records FoundNo Status Records FoundNo Status Records FoundNo Status Records Found INFORMATION SOURCE (unrecogn ized section and content) DATE CREATED AUTHOR 12/27/2022 [facility] DATE CREATED AUTHOR AUTHOR'S ORGANIZ ATION 07/03/2023 [facility] DATE CREATED AUTHOR AUTHOR'S ORGANIZ ATION 03/27/2025 [facility] DATE CREATED AUTHOR AUTHOR'S ORGANIZ ATION 04/06/2025 [facility] Goals (unrecognized section and content) Goals may [...] BE BASED ON THE PRIMARY CLINICAL RECORDS. [employer] provides no warranty or guarantee of the accuracy or completeness of information in this document.
== END 2025-04-24 15:58 | disposition home or self-care (01) ==
LOC: CARD 15:57
PROVIDERS: PCP Internal Medicine
DX: R06.09 Other forms of dyspnea (principal)
CPT/HCPCS: 93306

== ENCOUNTER 2025-05-06 10:27 | Outpatient (OUT) | payer MEDICARE, OTHER, SELFPAY ==
--- OUTSIDE RECORDS SUMMARY | 2024-06-25 11:00 | XMS_ITS ---
Author Organization [facility] in [place] Address [address] [place] [address] Care Team Providers Care Open Hearth Furnace Operator Helper Name Role Phone Tab Barfield DO Primary Care Provider Brandt Aquino Unavailable [phone] REASON FOR VISIT 6MO-ASTHMA, THEODORE Encounters Encounter Location Date Provider Diagnosis Pulmonary Medicine [address] [address] 06/25/2024 Brandt Paz Plan Of Treatment No Information Progress Notes * Bridger ROBLESDOB:[birth year] (79 yo M)Acc No.[id number]:06/25/2024 UNLOCKED PROGRESS NOTE Follow Up Patient: Bridger MARTINI Provider: Oz Paz DO :1945 A ge:78 Y S ex:Male Date:06/25/2024 Address:[address] [place], [place] [address] Pcp:Tab Barfield DO Subjective: * Chief Complaints: * 1 . 6MO-ASTHMA, THEODORE. * Medical History: Objective: * Vitals: Assessment: Plan: * Treatment: * * Electronic signature of Marisel Paz DO on 05/06/2025 at 10:30 AM EDT Sign off status: Pending Visit Status: R /S By O/P (Rescheduled by Office/Provider) * Provider: Oz Paz DO Date: 08/25/2023 Generated for Mara hernández/Christina/eTransmitting on: 0 05/06/2025 10:30 AM EDT
--- OUTSIDE RECORDS SUMMARY | 2024-10-16 12:00 | XMS_ITS ---
Author Organization [facility] Address [facility] [address] Care Team Providers Care Inspector Eyeglass Name Role Phone Sebastien Ramirez Unavailable [phone] ALLERGIES Allergen (clinical drug ingredient) Drug/Non Drug Allergy documented on EMR Reaction Allergy Type Onset Date Status Penicillin G Benzathine Unknown Drug Allergy Active RESULTS Component Value Reference Range Notes COMPREHENSIVE METABOLIC PANE L Reviewed date:10/13/2024 10:01:33 AM Interpretation: Performing Lab:[facility], [facility] [id number] [address] Osorio Maguire, PhD., F-AB Notes/Report: 0; 0; [...] Reviewed date:10/13/2024 10:01:21 AM Interpretation: Performing Lab:[facility] [employer] Osorio Maguire, PhD., F-AB Notes/Report: 0; [...] MPV 10.3 7.5-12.5 fL ABSOLUTE NEUTROPHILS [phone] cells/uL ABSOLUTE LYMPHOCYTES 1468 285-4543 cells/uL ABSOLUTE MONOCYTES 734 200-950 cells/uL ABSOLUTE EOSINOPHILS 324 15-500 cells/uL ABSOLUTE BASOPHILS 72 0-200 cells/uL NEUTROPHILS 64.2 LYMPHOCYTES 20.1 MONOCYTES 10.2 EOSINOPHILS 4.5 BASOPHILS 1.0 PSA, TOTAL Reviewed date:10/10/2024 08:00:04 AM Interpretation: Performing Lab:[facility] [employer] Osorio Maguire, PhD., F-AB Notes/Report: 0; [...] resistance Reviewed date:10/18/2024 08:00:46 AM Interpretation: Performing Lab:[facility], [place], [place], [facility] [place] Cit Notes/Report: Result Summary: Negative - REASON [...] a current every day smoker VITAL SIGNS Heart Rate 74 /min 10/16/2024 Blood pressure systolic 129 mm Hg 10/17/19 25 Blood pressure diastolic 70 mm Hg 025 Height 68 in 10/16/2024 Weight 185 lbs 10/16/2024 BMI 28.13 kg/m2 10/16/2024 Encounters Encounter Location Date Provider Diagnosis [facility] [address] [facility] [address] [place] [address] 10/16/2024 Sebastienanthony Ramirez Testicular hypofunction E29.1 ; [...] Name:Sebastien Ramirez, 0 10/15/2025 04:00:00 PM, [address] [facility] [address], [place], [address], History and Physical Notes * HPI (History of Present Illness) Category Sub-Category Detail Notes Category Not es Prostate cancer Prostate cancer was diagnosed 11/29 Current symptoms include weak stream prostate cancer risk - is 6 out of 10 TNM Classification of Malignant Tumours (TNM) T1c The [place] grade is 4+4 Recent work up includes a PSA (prostate- specific antigen) 5.7 Prior treatment(s) included Pt had XRT a nd lupron at [facility] Hematuria Onset of hematura: Started 09/29 [...]
--- OUTSIDE RECORDS SUMMARY | 2025-04-04 14:00 | XMS_ITS | Encounter Summary ---
Author Organization [facility] Address [address] [place] [address] Care Team Providers Care Sales And Events Coordinator Name Role Phone Tab Barfield DO Primary Care Provider [phone] AngBrandt underwood DO Unavailable [phone] Source Comments In the event this information is protected by the Federal Confidentiality of Alcohol and Drug AbusePatient Records regulations: The Federal rules restrict any use of the information to criminally investigate or prosecute any alcohol or drug abuse patient.[facility] Reason for Visit * Reason Comments Prostate Cancer Encounter Details Date Type Department Care Team (Late st Contact Info) Description 04/04/2025 2:00 PM EDT Office Visit Radiation Oncology [address] [place] [address] Gabe Banerjee MD [address] [place] [address] Malignant neoplasm of prostate (HCC) (Primary Dx) Social History Tobacco Use Types Packs/Day Years Used Date Smoking Tobacco: Former Cigarettes 2 30 0 12/09/1967 - 12/08/1997 Passive Smoke Exposure: Never Smokeless Tobacco: Never Tobacco Cessation:Counseling Given: Not Answered Alcohol Use Standard Drinks/Week Comments Yes 0 (1 standard drink = 0.6 oz pur e alcohol) PHQ-2 Answer Date Recorded PHQ-2 score 0 04/04/2025 Area Deprivation Index Answer Date Collins rded National Score (1-100), lower number is lower ri sk 79 03/03/2023 State Score (1-10), lower number is lower risk 7 03/03/2023 Data from: https://www.neighborhoodatlas.[facility].edu/. Last address used for calculation [address] 03/03/2023 Sex and Gender Information Value Date Recorded Sex Assigned at Not on file Legal Sex Male 1:55 PM EDT Gender Identity Not on file Sexual Orientation Not on file Occupation Industry Job Start Date Job End Date retired Not on file Not on file Not on file documented as of this encounter Last Filed Vital Signs Vital Sign Reading Time Taken Comments Blood Pressure 120/59 04/04/2025 1:48 PM EDT Pulse 67 04/04/2025 1:48 PM EDT Temperature 36.3 C (97.3 F) 04/04/2025 1:48 PM EDT Respiratory Rate 16 04/04/2025 1:48 PM EDT Oxygen Saturation 97% 04/04/2025 1:48 PM EDT Inhaled Oxygen Concentration - - Weight 94.6 kg (208 lb 8.9 oz) 04/04/2025 1:48 P M EDT Height - - Body Mass Index 32.35 03/03/2023 2:00 PM EDT documented in this encounter Progress Notes * Gabe Banerjee MD - 04/04/2025 1:57 PM EDT Radiation Oncology - Follow Up Note PATIENT NAME: Bridger Robles PATIENT DIAGNOSIS/PATIENT IDENTIFICATION: Mr. Robles is a 79-year old gentleman with Stage IIIA, [id number] adenocarcinoma of the prostate; high recurrence risk (cT1c, PSA 5.7, GS 4+4=8/10). Prostate MRI showed no evidence of seminal vesicle invasion or extracapsular extension or pelvic lymphadenopathy. He completed a course of definitive EBRT on 03/30/2018 (7920 cGy in 44 fractions) with ADT (18 months). INTERVAL HISTORY: Mrs. Robles returns to clinic today for routine follow-up approximately sevenyears after the completion of his radiation treatments and one year since his last visit on 03/29/2024. In the interim, he has been doing well denies any burning/discomfort urination and notes nocturia once. He notes no trouble starting stream or straining or incomplete emptying or weakening of hisstream or hematuria. He does have occasional incontinence/leakage but does not require any pads. Henotes regular bowel movements no diarrhea or pain or blood in his stool and denies any nausea. He does endorse fatigue with stable appetite and hydration and weight. His IPSS score today is 8/35 with QOL 2 ('mostly satisfied') and SHANNON score of 0/25. His most recent PSA drawn last week on 03/28/2025 remains fairly stable at 0.2 ng/mL. Date PSA (ng/mL) 10/31/2107 5.71 11/13/2017 Biopsy 12/25/2017 Started ADT 03/30/2018 Completed XRT 07/02/2018 <0.03 12/25/2018 <0.03 09/30/2019 <0.1 03/27/2020 0.03 03/23/2021 0.08 03/17/2022 0.18 09/29/2022 0.16 03/03/2023 0.23 10/10/2023 0.2 03/20/2024 0.21 03/28/2025 0.2 ALLERGIES ALLERGIES Allergen Reactions Penicillins Swelling MEDICATIONS: Current Outpatient Medications: CONTOUR TEST STRIPS test strip tamsulosin (FLOMAX) 0.4 mg montelukast (SINGULAIR) 10 mg tablet albuterol HFA (PROVENTIL HFA, VENTOLIN HFA) 90 mcg/actuation inhaler fluticasone-salmeterol (ADVAIR, WIXELA) 250-50 mcg/dose inhaler escitalopram oxalate (LEXAPRO) 10 mg tablet pravastatin (PRAVACHOL) 80 mg tablet losartan (COZAAR) 100 mg tablet amLODIPine (NORVASC) 5 mg tablet PHYSICAL EXAM: GENERAL: elderly gentleman sitting in chair in no acute distress. VITALS: BP 120/59 Pulse 67 Temp 97.3 Resp 16 Wt 208 lb 8.9 oz (94.6kg) SpO2 97% KPS: 90 HEENT: NC/AT, anicteric sclera HEART: S1S2 LUNGS: non-labored breathing ABDOMEN: soft MUSCULOSKELETAL: no peripheral edema, moves all extremities. NEURO: no focal deficit; A&O X3. ASSESSMENT AND PLAN: Mr. Robles is a 79-year old gentleman with Stage IIIA, [id number] adenocarcinoma of the prostate; high recurrence risk (cT1c, PSA 5.7, GS 4+4=8/10). Prostate MRI showed no evidence of seminal vesicle invasion or extracapsular extension or pelvic lymphadenopathy. He completed a course of definitive EBRT on 03/30/2018 (7920 cGy in 44 fractions) with ADT (18 months). Mr. Robles is doing well clinically approximately seven years out from the completion of his definitive radiation treatments to the prostate with stable urinary function. His most recent PSA drawn last week on 03/28/2025 remains fairly stable at 0.2 ng/mL with previous value of 0.21 ng/mL a yearago on 03/20/2024. I will plan to see him back [...] which included preparing to see the patient, [id number] patient care, and counseling and educating the patient/family/caregiver. This document has been created with the use of voice recognition technology. It may contain inaccuracies, misspellings, inaccurate syntax or inappropriate word context that are a result of the inadequacies/shortcomings of said technology/software. documented in this encounter Plan of Treatment Upcoming Encounters Date Type Department Care Team (Late st Contact Info) Description 07/24/2025 2:15 PM EST Appointment Radiology Pet CT [address] [place] [place] [address] CT CHEST WO IV 08/01/2025 1:15 PM EST Procedure PULMONARY [address] [place] [address] Dx: Dyspnea on exertion [R06.09] 08/01/2025 1:45 PM EST Procedure PULMONARY [address] [place] [address] SPIROMETRY WITH DILATOR IF OBSTRUCTED [[id number]] 08/01/2025 2:15 PM EST Office Visit PULMONARY [address] [place] [address] [place] [address] [place] [address] 3 month follow up 04/03/2026 3:00 PM EDT Office Visit [facility] Laboratory [address] [place] [address] PSA Lab 04/10/2026 2:00 PM EDT Office Visit Radiation Oncology [address] [place] [address] Gabe Banerjee MD [address] [place] [address] 2 yr rv Scheduled Orders Name Type Priority Associated Diagnoses Orde r Schedule PROSTATE-SPECIFIC ANTIGEN DIAGNOSTIC Lab Routine Malignant neoplasm of prostate (HCC) Expected: 04/04/2026, Expires: 07/04/2026 documented as of this encounter Visit Diagnoses Diagnosis Malignant neoplasm of prostate (HCC)- Primary Malignant neoplasm of prostate documented in this encounter Care Teams Sales And Events Coordinator Relationship Specialty Start Date End Date Tab Barfield DO [address] [place] [address] PCP - General Internal Medicine 11/23/17 Brandt Paz DO [address] [place] [address] Pulmonary Disease 03/15/23 documented as of this encounter
--- OUTSIDE RECORDS SUMMARY | 2025-04-22 14:45 | XMS_ITS | Encounter Summary ---
Author Organization [facility] Address [address] [place] [address] Care Team Providers Care Cd Mixer Name Role Phone Tab Barfield DO Primary Care Provider [phone] AngBrandt underwood DO Unavailable [phone] Source Comments In the event this information is protected by the Federal Confidentiality of Alcohol and Drug AbusePatient Records regulations: The Federal rules restrict any use of the information to criminally investigate or prosecute any alcohol or drug abuse patient.[facility] Reason for Referral * MRI/CT (Routine) - Authorized Specialty Diagnoses / Procedures Referred By Contac t Referred To Contact CT IMAGING Diagnoses Multiple lung nodules History of lung cancer Procedures CT CHEST WO IVCON DIAGNOSTIC COMPUTED TOMOGRAPHY THORAX [place] [address] [place] [address] Phone: tel: fax: [place] [address] Referral ID Status Reason Start Date Expiration Date Visits Requested Visits Authorized [id number] Authorized Auto-Generat ed Referral 06/14/2025 05/22/2026 1 1 * Outpatient Procedure (Routine) - Authorized Specialty Diagnoses / Procedures Referred By Contac t Referred To [facility] Diagnoses Chronic obstructive pulmonary disease, unspecified COPD type (HCC) Dyspnea on exertion Procedures OXIMETRY WITH AMBULATION NONINVASIVE EAR/PULSE [place] [address] [place] [address] Phone: tel: fax: [facility] [address] [place] [address] Referral ID Status Reason Start Date Expiration Date Visits Requested Visits Authorized [id number] Authorized Auto-Generat ed Referral 04/22/2025 05/22/2026 1 1 * Outpatient Procedure (Routine) - Authorized Specialty Diagnoses / Procedures Referred By Contac t Referred To [facility] Diagnoses Chronic obstructive pulmonary disease, unspecified COPD type (HCC) Procedures SPIROMETRY WITH DILATOR IF OBSTRUCTED BRNCDILAT RSPSE SPMTRY PRE&[place] [address] [place] [address] Phone: tel: fax: [facility] [address] [address] Referral ID Status Reason Start Date Expiration Date Visits Requested Visits Authorized [id number] Authorized Auto-Generat ed Referral 04/22/2025 05/22/2026 1 1 * Outpatient Procedure (Routine) - New Request Specialty Diagnoses / Procedures Referred By Contac t Referred To Contact [facility] Diagnoses Dyspnea on exertion Procedures ECHO ECHO TTHRC R-T 2D W/WOM-MODE COMPL SPEC&[place] [address] [place] [address] Phone: tel: fax: [facility] [address] [address] Referral ID Status Reason Start Date Expiration Date Visits Requested Visits Authorized [id number] New Request Auto-Generat ed Referral 04/22/2025 04/22/2026 [...] 60 MINUTES Tab Barfield, DO [address] [place] [address] [place] [address] Phone: tel: fax: Referral ID Status Reason Start Date Expiration Date V isits Requested Visits Authorized [id number] Closed PCP Requested Referral 04/10/2025 04/10/2026 1 1 Encounter Details Date Type Department Care Team ([facility] st Contact Info) Description 04/22/2025 2:45 PM EDT Office Visit PULMONARY [address] [place] [address] [place] [address] [place] [address] Chronic obstructive pulmonary disease, unspecified [...] is lower risk 7 03/03/2023 Data from: https://www.neighborhoodatlas.medicine.[facility].edu/. Last address used for calculation [address] 03/03/2023 Sex and Gender Information Value Date [...] is too high when you go to continuous pickling line pickler the prescription at your pharmacy. - Continue [...] If you would like to come to [place] or go to [place] for this, please [...] also benefit from a follow-up with a breakdown person. Please discuss this with your primary care [...] CT scan in June, as his previous stratigraphy teacher was monitoring small nodules in his lungs [...] mg tablet amLODIPine (NORVASC) 5 mg tablet qkyiwhvcgxs-tqdfgzakn-ggxjtbou (TRELEGY ELLIPTA) 100-62.5-25 mcg inhalation powder Inhale [...] was provided and he will inquire with [facility] about this. I recommend staying up to date on preventive vaccinations - pneumonia vaccinations, annual influenza vaccinations, and covid boosters. He should also receive RSV vaccination. I recommend masking when in public during cold and flu season. 2) Hx of lung cancer s/p resection in [place] 3-[address] ordered today [...] Berman MD Pulmonary and Critical Care Medicine [facility] [place] Recording using Weatherista software for draft documentation of the visit was discussed with the patient/authorized client representative; all questions welcomed and answered. Patient/authorized client representative agreed to proceed documented in this encounter Plan of Treatment Upcoming Encounters Date Type Department Care Team (Late st Contact Info) Description 07/24/2025 2:15 PM EST Appointment Radiology Pet CT [address] [facility] [facility] [place] [address] CT CHEST WO IV 08/01/2025 1:15 PM EST Procedure PULMONARY [facility] [place] [address] Dx: Dyspnea on exertion [R06.09] 08/01/2025 1:45 PM EST Procedure PULMONARY [facility] [place] [address] SPIROMETRY WITH DILATOR IF OBSTRUCTED [[id number]] 08/01/2025 2:15 PM EST Office Visit PULMONARY [facility] [place] [address] [place] [address] [place] [address] 3 month follow up 04/03/2026 3:00 PM EDT Office Visit [facility] [address] [place] [address] PSA Lab 04/10/2026 2:00 PM EDT Office Visit Radiation Oncology [address] [place] [address] Gabe Banerjee MD [address] [place] [address] 1 yr rv Scheduled Orders Name Type [...] (pediatric) documented in this encounter Care Teams Cd Mixer Relationship Specialty Start Date End Date Tab Barfield DO [address] [place] [address] PCP - General Internal Medicine 11/23/17 Brandt Paz DO [address] [place] [address] Pulmonary Disease 03/15/23 documented as of this encounter
--- NOTE | 2025-05-06 09:45 | NM_ITS ---
Patient Name: JACINTA TSANG MR#: [id number] : 1945 Exam Date: 05/06/2025 Ordering Doctor: DR ERWIN XIONG D.O. RADIOLOGY REPORT PROCEDURE: NM MARK PERF SPECT REST STR COMPARISON: None. INDICATIONS: SHORTNESS OF BREATH TECHNIQUE: Exam Description: Stress/Rest two day protocol gated SPECT Rest Imagin.6 mCi Tc-99m Cardiolite IV on 05/06/2025 Stress Imaging 29.6 mCi Tc-99m Cardiolite IV on 05/06/2025 Exercise Protocol: Brooks Heart Rate (bpm): Rest: 60 Max: 123 PMHR: 86 Blood Pressure: Rest: 148/78 Max: 222/98 Exercise Time: Minutes: 1 Seconds: 53 Stage Reached: Stage: 1 Mets 4.6 Symptoms: Rest and peak stress ECG findings were pending and the EKG portion of the study was pending per attending physician [facility] . For more details please see separate cardiac stress test report. FINDINGS: QUALITY OF STUDY: Good PERFUSION DEFECT: LOCATION: Inferior SIZE: Medium SEVERITY: Moderate TYPE: Fixed with adequate contractility and thickening consistent with diaphragmatic attenuation artifact WALL MOTION: Normal LV SIZE: 80 mL. TID / TCD: 0.9 LVEF: Calculated EF 72%. SUMMARY: Normal myocardial perfusion imaging study CONCLUSION: Normal nuclear myocardial perfusion stress test without evidence of ischemia or infarction Normal left ventricle systolic function, ejection fraction 72% No transient ischemic dilatation, TID score 0.9 EKG portion of stress test is reported separately Dictated by: Dorota Ashford MD on 05/08/2025 at 17:19 Approved by: Dorota Ashford MD on 05/08/2025 at 17:23
--- OUTSIDE RECORDS SUMMARY | 2025-05-06 10:29 | XMS_ITS | Encounter Summary ---
Author Organization [facility] Myco[employer] Sys tem Address [facility] [id number] [address] [place] [address] Care Team Providers Care Lode Miner Blasting Name Role Phone Tab Barfield DO Primary Care Provider [phone] Encounter Details Date Type Department Care Team (Late st Contact Info) Description 09/22/2021 Telephone [facility] [address] [address] Leatha Friend RN Social History [...] 9:41 AM EST Did he move to [place] or there for winter He is back on overdue list? * Telephone Encounter - eDe Ball LPN - 09/22/2021 9:41 AM EST [...] on filedocumented in this encounter Care Teams Lode Miner Blasting Relationship Specialty Start Date End Date Tab Barfield DO [address] [place] [address] PCP - General Internal Medicine 12/15/20 documented as of this encounter
--- OUTSIDE RECORDS SUMMARY | 2025-05-06 10:29 | XMS_ITS | Encounter Summary ---
Author Organization [facility] App[employer]ack Sys tem Address [facility] [id number] [address] [place] [address] Care Team Providers Care Stationary Engineer Apprentice Name Role Phone Tab Barfield DO Primary Care Provider [phone] Encounter Details Date Type Department Care Team (Late st Contact Info) Description 05/11/2021 [facility]phone [facility] [address] [address] Ramonita Rodriguez RN Social History [...] Rodriguez RN - 05/11/2021 3:32 PM EDT Hot Mill Operator spoke to patient and informed per NEGRITO Martell, RAP showed patient has an allergy/sensitization to multiple types of grass. Recommends patient will need to start Singulair and zyrtec daily. ??Pharmacy of choice is [facility] in [place]. Patient agreeable. documented in this encounter Plan of Treatment Not on file documented as of this encounter Goals Goal Patient Goal Type Associated Problems Recent Progress Patient-Stated? Author <enter goal here> General Yes Bia Mena LSW Note: Evaluation of progress towards goal: plan home with support. documented as of this encounter Visit Diagnoses Not on filedocumented in this encounter Care Teams Stationary Engineer Apprentice Relationship Specialty Start Date End Date Tab Barfield DO [address] [place] [address] PCP - General Internal Medicine 12/15/20 documented as of this encounter
--- OUTSIDE RECORDS SUMMARY | 2025-05-06 10:29 | XMS_ITS | Clinical Summary ---
Author Organization [facility] Healthcare Address [address] [place] [address] Care Team Providers Care Intelligence Group Supervisor Name Role Phone Unavailable Primary Care Provider [...] Description 03/25/2025 3:05 PM EDT Office Visit [facility] [address] [place] [address] Lupis Campbell MD Prurigo nodularis (Primary Dx); Inflamed seborrheic keratosis 03/25/2025 Bamboo flowsheet [facility] [address] [place] [address] Lupis Campbell MD 03/25/2025 Travel [...]
--- OUTSIDE RECORDS SUMMARY | 2025-05-06 10:29 | XMS_ITS | Encounter Summary ---
Author Organization [facility] Ey[employer]ight Sys tem Address [facility] [place][id number] [address] [place] [address] Care Team Providers Care Service Or Work Dispatcher Chief Name Role Phone LicoTab Primary Care Provider [phone] Encounter Details Date Type Department Care Team (Late st Contact Info) Description 05/06/2022 Orders Only [facility] Pulmonary/Sleep Medicine [address] [place] [address] Ref Prov, [place] [address] Social History Tobacco Use Types Packs/Day Years [...] on filedocumented in this encounter Care Teams Service Or Work Dispatcher Chief Relationship Specialty Start Date End Date Tab Brafield DO [address] [place] [address] PCP - General Internal Medicine 12/15/20 documented as of this encounter
--- OUTSIDE RECORDS SUMMARY | 2025-05-06 10:29 | XMS_ITS | Encounter Summary ---
Author Organization [facility] Shopperception Sys tem Address [facility] [id number] [address] [place] [address] Care Team Providers Care Piece Hand Name Role Phone LicoTab Primary Care Provider [phone] Encounter Details Date Type Department Care Team (Late st Contact Info) Description 10/26/2021 Orders Only [facility] Pulmonary/Sleep Medicine [address] [place] [address] Ref Prov, [place] [address] Social History Tobacco Use Types Packs/Day Years [...] on filedocumented in this encounter Care Teams Piece Hand Relationship Specialty Start Date End Date Tab Barfield DO [address] [place] [address] PCP - General Internal Medicine 12/15/20 documented as of this encounter
--- OUTSIDE RECORDS SUMMARY | 2025-05-06 10:29 | XMS_ITS | Encounter Summary ---
Author Organization [facility] Address [facility] [id number] [address] [place] [address] Care Team Providers Care Windmill Mechanic Name Role Phone Tab Barfield DO Primary Care Provider [phone] Encounter Details Date Type Department Care Team (Late st Contact Info) Description 05/13/2021 Telephone [facility] [address] [address] Leatha Friend RN Social History [...] on filedocumented in this encounter Care Teams Windmill Mechanic Relationship Specialty Start Date End Date Tab Barfield DO [address] [place] [address] PCP - General Internal Medicine 12/15/20 documented as of this encounter
--- OUTSIDE RECORDS SUMMARY | 2025-05-06 10:30 | XMS_ITS | Patient Health Record ---
Author Organization [facility] [place] Address [address] [place] [address] Care Team Providers Care Arc Welder Apprentice Name Role Phone Tab Barfield DO Primary Care Provider Melanie Aquino Unavailable [phone] Allergies Allergen (clinical drug ingredient) Drug/Non Drug Allergy documented on EMR Reaction Allergy Type Onset Date Status Penicillin G Potassi um (penicillin) Unknown Drug Allergy Active Mirapex Leg pain Drug Allergy Active Results Component Value Reference Range Notes CT chest wo con Reviewed date:07/03/2024 07:19:30 AM Interpretation: Performing Lab: Notes/Report: Source Facility: [place] [address] CT Scan Report Signed Patient: JACINTA ROBLES MR#: [id number] : 1945 Acct:[id number] Age/Sex: 78 / M ADM Date: 06/25/24 Loc: CT Attending Dr: Melanie Gayle D.O. Ordering Physician: Melanie Gayle D.O. Date of Service: 06/25/24 Procedure(s): CT chest wo con Accession Number(s): [id number] cc: Tab Barfield D.O. [place] [address] Patient Name: JACINTA ROBLES MRN: [id number] date: 1945 Sex: M Assigned Patient Location: CT Current Patient Location: Accession/Order Number: [id number] Exam Date: 06/25/2024 13:08 Report Date: 06/27/2024 [...] Dictated By: Curtis Merlos M.D. Signed By: 06/27/24 0555 DD/ 0552 TD/TT: Medical Records Field Technician: CT Chest w/o contrast Reviewed date:12/12/2024 05:02:30 PM Interpretation: Performing Lab: Notes/Report: CT chest wo con Reviewed date:12/16/2024 12:09:33 PM Interpretation: Performing Lab: Notes/Report: Source Facility: [place] [address] CT Scan Report Signed Patient: JACINTA ROBLES MR#: [id number] : 1945 Acct:[id number] Age/Sex: 79 / M ADM Date: 12/12/24 Loc: CT Attending Dr: Melanie Gayle D.O. Ordering Physician: Melanie Gayle D.O. Date of Service: 12/12/24 Procedure(s): CT chest wo con Accession Number(s): [id number] cc: Tab Barfield D.O. [place] [address] Patient Name: JACINTA ROBLSE MRN: [id number] date: 1945 Sex: M Assigned Patient Location: CT Current Patient Location: CT Accession/Order Number: [id number] Exam Date: 12/12/2024 15:01 Report Date: 12/12/2024 [...] Jr., D.O. 12/12/2024 3:05 PM Dictation Location: [place] [address] Electronically authenticated by: [id number] Y Date: 12/12/2024 15:05 Dictated By: Chiki Ruth M.D. Signed By: 12/12/24 1507 DD/ 1505 TD/TT: Medical Records Field Technician: CT Chest w/o contrast Reviewed date:06/27/2024 08:41:39 AM Interpretation: Performing Lab: Notes/Report: Reason For Referral No Information Medications Medication SIG (Take, Route, Frequency, Duration) Notes Start Date End Date Status metFORMIN HCl 500 MG TAKE 1 TABLET BY MOUTH ONCE DAILY WITH A MEAL Oral; Duration: 30 Days Active Losartan Potassium 100 MG 1 tablet Orally Once a day Active Montelukast Sodium 10 MG 1 tablet Orally Once a day; Duration: 90 days Active amLODIPine Besylate 10 MG 1 tablet Orally Once a day Active Ventolin HFA 108 (90 Base) MCG/ACT 2 puffs as needed for SOB Inhalation Q4H; Duration: 90 days Dispense #3 inhalers Active Albuterol Sulfate (2.5 MG/3ML) 0.083% 3 mL as needed Inhalation every 6 hrs Not-Taking Escitalopram Oxalate 10 MG 1 tablet Orally Once a day Active Tamsulosin HCl 0.4 MG 1 capsule Orally Once a day Active Pravastatin Sodium 80 MG 1 tablet Orally Once a day Active Fluticasone-Salmeter ol 500-50 MCG/ACT 1 puff Inhalation Twice a day; Duration: 90 days Rinse after use - Dispense #3 inhalers May substitute with Wixela, Advair, or generic fluticasone/salme terol - whichever is covered and cheapest for patient Active Immunizations Vaccine Route Administration Date Status Comme nts Arexvy Unknown 06/30/2023 Administered Comirnaty [facility] Syringe Pre -Filled 30 mcg/0.3 mL Unknown 06/30/2023 Administered Comirnaty Pfizer Syringe Pre -Filled 30 mcg/0.3 mL Unknown 07/03/2024 Administered Flu, Fluad (95697) 65 yrs + High Dose Seasonal (5877-0864) Unknown 04/23/2024 Administered Flu, Fluad (01248) 65 yrs+, single-dose syringe (1486-6708) Unknown 05/06/2022 Administered Pneumococcal (Prevnar 13) Unknown [...] Problem Status W/U Status Risk Notes Problem Obesity (521842442) Obesity, unspecified (E66.9) Active confirmed Problem Uncomplicated moderate persistent asthma (798368353) Moderate persistent asthma, uncomplicated (J45.40) Active confirmed Trelegy 200 > Advair 250 + Spiriva 1.25 >>> Breztri Problem Long-term current use of inhaled steroid (567908436) termination clerk (current) use of inhaled steroids (Z79.51) Active confirmed Problem Restless legs syndrome (14062049) Restless leg syndrome (G25.81) Active confirmed Problem Obstructive sleep apnea (91713340) Obstructive sleep apnea (G47.33) Active confirmed PSG 06/15/2022: AHI 30.6 Problem Type II diabetes mellitus well controlled (471533312) Diabetes mellitus type 2, controlled (E11.9) Active confirmed Problem Multiple pulmonary nodules (097526066) Multiple pulmonary nodules (R91.8) Active confirmed Problem Ex-tobacco user (finding) (941055464) History of tobacco abuse (Z87.891) Active confirmed Problem Adenocarcinoma of right lung (600762400740193 00) Adenocarcinoma of right lung (C34.91) Active confirmed 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[facility]; Stage 1A3 (T1/N0/M0) Problem Secondary pulmonary hypertension (14273206) 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) Active confirmed Echo 05/04/2022: RVSP 56mmHG Problem Body mass index 30.00 to 34.99 (820631004054708 ) Body mass index [BMI] 31.0-31.9, adult [...] Location Date Provider Diagnosis Pulmonary Medicine [address] [address] 07/03/2024 [facility] Moderate persistent asthma, uncomplicated J45.40 ; Adenocarcinoma of right lung C34.91 ; Obstructive sleep apnea G47.33 ; Restless leg syndrome G25.81 ; Peripheral eosinophilia D72.19 ; Diabetes mellitus type 2, controlled E11.9 ; termination clerk (current) use of inhaled steroids Z79.51 ; History of tobacco abuse Z87.891 and Obesity, unspecified E66.9 [facility] [address] [place] [address] 12/31/2024 [facility] Moderate persistent asthma, uncomplicated J45.40 ; Adenocarcinoma of right lung C34.91 ; Obstructive sleep apnea G47.33 ; Restless leg syndrome G25.81 ; Peripheral eosinophilia D72.19 ; Diabetes mellitus type 2, controlled E11.9 ; termination clerk (current) use of inhaled steroids Z79.51 ; History of tobacco abuse Z87.891 and Obesity, unspecified E66.9 [facility] [address] [place] [address] 03/24/2025 [facility] Assess[facility] Encounter Date Diagnosis (ICD Code) Assessment [...] (ICD-10 - G47.33) PSG 06/15/2022: AHI 30.6 Vrnd-ae-qyyg encounter performed with the patient to document continued need for PAP therapy. -PSG 06/15/2022; AHI 30.6-PAP titration 01/16/2023: CPAP 03hdB4O -Compliance was reviewed from 06/02/2024 - 07/01/2024-Total days used: (100%)-Total of all days >4 hours of use (100%)-Current mode & pressures: AirSense 11 AutoSet - CPAP 15cm A7G-Gzrngyky AHI: 2.6-Air leak 95th percentile: 0.5L/min-Mask/harn ess [...] (ICD-10 - G47.33) PSG 06/15/2022: AHI 30.6 Ciga-jg-ehqj encounter performed with the patient to document continued need for PAP therapy. -DME: [facility] -PSG 06/15/2022; AHI 30.6-PAP titration 01/16/2023: CPAP 66tiY0R -Compliance was reviewed from 11/30/2024 - 12/29/2024-Total days used: (100%)-Total of all days >4 hours of use (100%)-Current mode & pressures: AirSense 11 AutoSet - CPAP 15cm W1B-Gnfcbzoo AHI: 3.4-Air leak 95th percentile: 0.3L/min-Mask/harn ess fitting: No issues today-Sleep quality: Better with CPAP use-Daytime hypersomnolence: Less with CPAP use-Recommendation s: Superb compliance. No complaints today. Continue CPAP @ current settings. Continue PAP @ HS/naps. Refill/renew/reord er supplies, CPAP as required. 07/03/2024 Peripheral eosinophilia (ICD-10 - D72.19) Prescribed Fasenra, but was too expensive and therefore he is not on any biologic treatment. 12/31/2024 Restless leg syndrome (ICD-10 - G25.81) Tried and failed Mirapex (caused leg pain). Does not complain of this today. 12/31/2024 Peripheral eosinophilia (ICD-10 - D72.19) Prescribed Fasenra, could not afford it. 07/03/2024 Diabetes mellitus type 2, controlled (ICD-10 - E11.9) Steroids prescribed for this patient's underlying pulmonary disease can adversely affect blood glucose levels, inducing hyperglycemia and worsening underlying diabetes. The patient is encouraged to follow up with the primary care provider to create a plan to manage diabetes in this situation. 12/31/2024 Diabetes mellitus type 2, controlled (ICD-10 - E11.9) Steroids prescribed for this patient's underlying pulmonary disease can adversely affect blood glucose levels, inducing hyperglycemia and worsening underlying diabetes. The patient is encouraged to follow up with the primary care provider to create a plan to manage diabetes in this situation. 07/03/2024 termination clerk (current) use of inhaled steroids (ICD-10 - Z79.51) Patient was counseled to rinse & gargle with water after inhaled corticosteroid use. 12/31/2024 jail (current) use of inhaled steroids (ICD-10 - Z79.51) Patient was counseled to rinse & gargle with water after inhaled corticosteroid use. 07/03/2024 History of tobacco abuse (ICD-10 - Z87.891) This patient does not meet current LDCT criteria (e.g. age, time from cessation, # pack-years). 12/31/2024 History of tobacco abuse (ICD-10 - [...] Coverage End Date MEDICARE RAILROAD [address] [address] [place], [place] [id number] Jacinta Romero Self - patient is the insured 2 [facility] [address] [place] [address] [id number] Jacinta Romero Self - patient is the insured Medical (General) History Medical History History ICD Code Moderate persistent asthma, uncomplicate d J45.40 Obstructive sleep apnea G47.33 Peripheral eosinophilia D72.19 termination clerk (current) use of inhaled stero ids Z79.51 [...]
--- OUTSIDE RECORDS SUMMARY | 2025-05-06 10:30 | XMS_ITS | Encounter Summary ---
Author Organization [facility] Address [address] [place] [address] Care Team Providers Care Cutch Cleaner Name Role Phone Tab Barfield DO Primary Care Provider [phone] AngBrandt underwood DO Unavailable [phone] Source Comments In the event this information is protected by the Federal Confidentiality of Alcohol and Drug AbusePatient Records regulations: The Federal rules restrict any use of the information to criminally investigate or prosecute any alcohol or drug abuse patient.[facility] Encounter Details Date Type Department Care [...] is lower risk 7 03/03/2023 Data from: https://www.neighborhoodatlas.medicine.[place].edu/. Last address used for calculation Carlotta Owens [...] PM EST Appointment Radiology Pet CT [address] [place] [address] CT CHEST WO IV 08/01/2025 1:15 PM EST Procedure PULMONARY [address] [facility] [place] [address] Dx: Dyspnea on exertion [R06.09] 08/01/2025 1:45 PM EST Procedure PULMONARY [address] [facility] [place] [address] SPIROMETRY WITH DILATOR IF OBSTRUCTED [[id number]] 08/01/2025 2:15 PM EST Office Visit PULMONARY [address] [place] [address] [place] [address] [address] [place], [place] [address] 3 month follow up 04/03/2026 3:00 PM EDT Office Visit [facility] [address] [facility] [place] [address] PSA Lab 04/10/2026 2:00 PM EDT Office Visit Radiation Oncology [address] [place] [address] Gabe Banerjee MD [address] [address] [place] [address] 2 yr rv documented as of this encounter Visit Diagnoses Not on filedocumented in this encounter Care Teams Cutch Cleaner Relationship Specialty Start Date End Date Tab Barfield DO [address] [facility] [place] [address] PCP - General Internal Medicine 11/23/17 Brandt Paz DO [address] [place] [address] Pulmonary Disease 03/15/23 documented as of this encounter
--- OUTSIDE RECORDS SUMMARY | 2025-05-06 10:30 | XMS_ITS | Clinical Summary ---
Author Organization [facility] Address [address] [place] [address], [address] [place] [address] Care Team Providers Care Multi Needle Machine Operator Name Role Phone Unavailable Primary Care Provider [...]
--- OUTSIDE RECORDS SUMMARY | 2025-05-06 10:30 | XMS_ITS | Clinical Summary ---
Author Organization [email or web address] s tem Address [facility] [place]91528 [address] [place] [address] Care Team Providers Care Hospital Receptionist Name Role Phone Tab Barfield DO Primary Care Provider [phone] Allergies Active Allergy Reactions Criticality Noted Date [...] 3:52 PM 02/25/2021 2:16 PM Care Teams Hospital Receptionist Relationship Specialty Start Date End Date Tab Barfield DO [address] [place] [address] PCP - General Internal Medicine 12/15/20
--- OUTSIDE RECORDS SUMMARY | 2025-05-06 10:30 | XMS_ITS | Encounter Summary ---
Author Organization [facility] Address [address] [place] [address] Care Team Providers Care Design/Animation Instructor Name Role Phone Tab Barfield DO Primary Care Provider [phone] AngBrandt underwood Unavailable Source Comments In the event this information is protected by the Federal Confidentiality of Alcohol and Drug AbusePatient Records regulations: The Federal rules restrict any use of the information to criminally investigate or prosecute any alcohol or drug abuse patient.[facility] Encounter Details Date Type Department Care Team (Late st Contact Info) Description 03/10/2023 Patient Msg Cardiology [address] [place] [address] Shannon Gonzalez MD [address] [place] [address] Appointment Cancellation Request Social History Tobacco Use [...] is lower risk 7 03/03/2023 Data from: https://www.neighborhoodatlas.medicine.[facility].edu/. Last address used for calculation Carlotta [...] PM EST Appointment Radiology Pet CT [address] [facility] [place] [address] CT CHEST WO IV 08/01/2025 1:15 PM EST Procedure PULMONARY [address] [facility] [place] [address] Dx: Dyspnea on exertion [R06.09] 08/01/2025 1:45 PM EST Procedure PULMONARY [address] [place] [address] [place] [address] SPIROMETRY WITH DILATOR IF OBSTRUCTED [[id number]] 08/01/2025 2:15 PM EST Office Visit PULMONARY [address] [facility] [place] [address] [place] [address] [place] [address] 3 month follow up 04/03/2026 3:00 PM EDT Office Visit [facility] [address] [facility] [place] [address] PSA Lab 04/10/2026 2:00 PM EDT Office Visit Radiation Oncology [address] [facility] [place] [address] Gabe Banerjee MD [address] [place] [address] 1 yr rv documented as of this encounter Visit Diagnoses Not on filedocumented in this encounter Care Teams Design/Animation Instructor Relationship Specialty Start Date End Date Tab Barfield DO [address] [place] [address] PCP - General Internal Medicine 11/23/17 Brandt Paz DO [address] [place] [address] Pulmonary Disease 03/15/23 documented as of this encounter
--- OUTSIDE RECORDS SUMMARY | 2025-05-06 10:30 | XMS_ITS | Clinical Summary ---
Author Organization [facility] Address [address] [place] [address] Care Team Providers Care Diesel Lube Tech Name Role Phone LicoTab Primary Care Provider [phone] Brandt Paz DO Unavailable [phone] Allergies Active Allergy Reactions Criticality Noted [...] once daily. 1 each 11 5 Active fluticasone-sa lmeterol (ADVAIR, WIXELA) 250-50 mcg/dose inhaler INHALE 1 DOSE BY MOUTH TWICE DAILY 2 04/22/20 25 Discontinu ed(Course of therapy completed) Active Problems Problem Noted Date Diagnosed Date Prostate cancer 12/19/2017 Encounters Date Type Department Care Team Description 04/22/2025 2:45 PM EDT Office Visit PULMONARY [address] [place] [address] Mary Berman MD Chronic obstructive pulmonary disease, unspecified COPD type (HCC) (Primary Dx); Mucopurulent chronic bronchitis (HCC); Dyspnea on exertion; Multiple lung nodules; History of lung cancer; THEODORE (obstructive sleep apnea) 04/22/2025 Travel 04/10/2025 Transcribe Orders Referring Physician [facility] [place] [address] Tab Barfield, Superior pulmonary sulcus syndrome, right (HCC) (Primary Dx); Mucopurulent chronic bronchitis (HCC); THEODORE (obstructive sleep apnea) 04/04/2025 2:00 PM EDT Office Visit Radiation Oncology [address] [place] [address] [place] [address] Gabe Banerjee MD Malignant neoplasm of prostate (HCC) (Primary Dx) 03/21/2025 Travel from Last 3 Months Immunizations Immunization Administration Dates Next Due AS03 adjuvant 05/01/2019 COVID-19 original vaccine, a ge 12+ yr, monovalent ([employer]look-BIONTLikeBright - PURPLE TOP) 10/07/2020,09/17/2020 influenza (aIIV3) vaccine, [...] is lower risk 7 03/03/2023 Data from: https://www.neighborhoodatlas.medicine.[facility].edu/. Last address used for calculation Carlotta [...] PM EST Appointment Radiology Pet CT [address] [address] CT CHEST WO IV 08/01/2025 1:15 PM EST Procedure PULMONARY [address] [facility] [place] [address] Dx: Dyspnea on exertion [R06.09] 08/01/2025 1:45 PM EST Procedure PULMONARY [address] [place] [address] SPIROMETRY WITH DILATOR IF OBSTRUCTED [[id number]] 08/01/2025 2:15 PM EST Office Visit PULMONARY [address] [place] [address] [place] [address] [place] [address] 3 month follow up 04/03/2026 3:00 PM EDT Office Visit [facility] [address] [place] [place] [address] PSA Lab 04/10/2026 2:00 PM EDT Office Visit Radiation Oncology [address] [address] Gabe Banerjee MD [address] [place] [place] [address] 1 yr rv Health Maintenance Due Date [...] 0.20 <2.60 ng/mL 03/29/2025 4:04 AM EDT [facility] Comment:Total PSA test metho dology used is the Electrochemiluminescence Immunoassay by [employer]. Total PSA values by differing methodologies cannot be interchanged. Blood BLOOD SPECIMEN / Unknown Venipuncture / Unknown 03/28/2025 1:05 PM EDT 03/28/2025 1:05 PM EDT Gabe Banerjee MD LABORATORY Final Result [facility] [address] [place] [address], * (ABNORMAL) COMP METABOLIC PANEL (03/03/2023 1:19 PM EDT) Protein, Total 6.8 6.3 - 8.0 g/dL 03/04/2023 12:51 PM EDT [facility] Albumin 4.3 3.9 - 4.9 g/dL 03/04/2023 12:51 PM EDT [facility] Calcium, Total 9.3 8.5 - 10.2 mg/dL 03/04/2023 12:51 PM EDT [facility] Bilirubin, Total 0.3 0.2 - 1.3 mg/dL 03/04/2023 12:51 PM EDT [facility] Alkaline Phosphatase 73 38 - 113 U/L 03/04/2023 12:51 PM [facility] AST 17 14 - 40 U/L 03/04/2023 12:51 PM [facility] ALT 22 10 - 54 U/L 03/04/2023 12:51 PM [facility] Glucose 178(H) 74 - 99 mg/dL 03/04/2023 12:51 PM [facility] Comment: The [place] [...] 9 - 24 mg/dL 03/04/2023 12:51 PM [facility] Creatinine 1.13 0.73 - 1.22 mg/dL 03/04/2023 12:51 PM [facility] Sodium 142 136 - 144 mmol/L 03/04/2023 12:51 PM [facility] Potassium 4.5 3.7 - 5.1 mmol/L 03/04/2023 12:51 PM [facility] Chloride 107(H) 97 - 105 mmol/L 03/04/2023 12:51 PM [facility] CO2 22 22 - 30 mmol/L 03/04/2023 12:51 PM [facility] Anion Gap 13 9 - 18 mmol/L 03/04/2023 12:51 PM [facility] Estimated Glomerular Filtration Rate 67 >=60 mL/min/1.7 3m 03/04/2023 12:51 PM [facility] Comment:Estimated Glomerular Filtration Rate (eGFR) [...] 03/03/2023 1:19 PM EDT us Kaitlin Murcia AUTOMOTIVE PRODUCT ENGINEER.CLAIMS CONFIGURATION ANALYST LABORATORY Fin al Result [facility] [address] [facility] [address] [place] [address], from Last 3 Months or Most Recently Relevant to Health Maintenance Insurance MEDICARE RAILROAD MEDICARE [facility] MEDICARE SUPPLEMENT Care Teams Diesel Lube Tech Relationship Specialty Start Date End Date Tab Barfield DO [address] [place] [address] PCP - General Internal Medicine 11/23/17 Brandt Paz DO [address] [place] [address] Pulmonary Disease 03/15/23
--- OUTSIDE RECORDS SUMMARY | 2025-05-06 10:30 | XMS_ITS ---
Author Organization [facility] Address [address] [place], [place] [id number] Care Team Providers Care Naphthalene Still Operator Name Role Phone Tab Barfield DO Primary Care Provider [phone] AngBrandt DO Unavailable [phone] Active Problems Problem Noted Date Diagnosed [...] Robles Patient : 1945 Patient phone: Email: [email or web address] Primary Care Provider: Tab [...] 13, 2017 Histology Subtype: Prostate Cancer Stage:IIIA; [id number] [place] Score: 4+4= 8 PSA at Diagnosis: 5.7 [...] you may be interested in: [email or web address] Die Repairer Stamping Manager Cosmetic Art Therapy PSA (Prostate Cancer Support Group), meets October 08, November 05, December 03, February 04, from 2 PM to 3PM, at [address] [place] [address] Arturo Waddell- contact our director social for future dates and times. Prepared by: Peggy Johnson APRN.INSURANCE VERIFICATION REP Delivered on: January 03, 2019 - This [...]
--- OUTSIDE RECORDS SUMMARY | 2025-05-06 10:30 | XMS_ITS | Encounter Summary ---
Author Organization [facility] Address [id number] [address] [place] [address] Care Team Providers Care Transplant Surgeon Name Role Phone Tab Barfield DO Primary Care Provider [phone] Encounter Details Date Type Department Care Team (Late st Contact Info) Description 12/22/2020 Orders Only [facility] Cardiothoracic Surgeons - Juan Callahan [place] [address] [place] [address] Ref Prov, [place] [address] Social History Tobacco Use Types Packs/Day Years [...] on filedocumented in this encounter Care Teams Transplant Surgeon Relationship Specialty Start Date End Date Tab Barfield DO [address] [place] [address] PCP - General Internal Medicine 12/15/20 documented as of this encounter
--- OUTSIDE RECORDS SUMMARY | 2025-05-06 10:30 | XMS_ITS | CCD ---
Author Name Interface, [email or web address] Address [address] [place] [address] [facility] Address [address] [place] [address] Reason for Visit Social History
--- OUTSIDE RECORDS SUMMARY | 2025-05-06 10:30 | XMS_ITS | Patient Health Record ---
Author Organization [facility] Address [address] [address] Care Team Providers Care Customer Solutions Coordinator Name Role Phone Sebastien Ramirez Unavailable [phone] ALLERGIES Allergen (clinical drug ingredient) Drug/Non Drug Allergy documented on EMR Reaction Allergy Type Onset Date Status Penicillin G Benzathine Unknown Drug Allergy Active RESULTS Component Value Reference Range Notes COMPREHENSIVE METABOLIC PANE L Reviewed date:10/13/2024 10:01:33 AM Interpretation: Performing Lab:[facility] [address] [place] [address] Osorio Maguire, PhD., F-ABFT Notes/Report: 0; 0; [...] Reviewed date:10/13/2024 10:01:21 AM Interpretation: Performing Lab:[facility] for; to (do) Centers[address] Osorio Maguire, PhD., -AB Notes/Report: 0; [...] MPV 10.3 7.5-12.5 fL ABSOLUTE NEUTROPHILS 4622 8955-6915 cells/uL ABSOLUTE LYMPHOCYTES 5364 425-2377 cells/uL ABSOLUTE MONOCYTES 734 200-950 cells/uL ABSOLUTE EOSINOPHILS 324 15-500 cells/uL ABSOLUTE BASOPHILS 72 0-200 cells/uL NEUTROPHILS 64.2 LYMPHOCYTES 20.1 MONOCYTES 10.2 EOSINOPHILS 4.5 BASOPHILS 1.0 PSA, TOTAL Reviewed date:10/10/2024 08:00:04 AM Interpretation: Performing Lab:[facility]; [facility] Centers[address] Osorio Maguire, PhD., F-AB Notes/Report: 0; 0; 0 FASTING:NO FASTING: NO PSA, TOTAL 0.18 < OR = 4.00 ng/mL The total PSA value from this assay system is standardized against the WHO standard. The test result will be approximately 20% lower when compared to the equimolar-standardized total PSA (Mi [place]). Comparison of serial PSA results should be interpreted with this fact in mind. This test was performed using the Siemens chemiluminescent method. Values obtained from different assay methods cannot be used interchangeably. PSA levels, regardless of value, should not be interpreted as absolute evidence of the presence or absence of disease. Urinary Tract Infections/Ant ibiotic resistance Reviewed date:10/18/2024 08:00:46 AM Interpretation: Performing Lab:[facility], [place], [place], [facility], 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1) Active confirmed Lower urinary tract symptoms due to benign prostatic hypertrophy (68550962614345) Problem Elevated prostate specific antigen [PSA] (R97.20) Active confirmed Elevated PSA (408639653) VITAL SIGNS Heart Rate 74 /min 10/16/2024 Blood pressure diastolic 70 mm Hg 10/16/2024 Height 68 in 10/16/2024 Blood pressure systolic 129 mm Hg 10/16/2024 Weight 185 lbs 10/16/2024 BMI 28.13 kg/m2 10/16/2024 Encounters Encounter Location Date Provider Diagnosis [facility] [address] [place] [address] 10/16/2024 Sebastien Ramirez Testicular hypofunction E29.1 ; [...] Name:Sebastien Ramirez, 0 10/15/2025 04:00:00 PM, [address] [facility] [address], [place], [address], Insurance Providers Payer Name Payer Address Payer Phone Subscriber Number Group Number Insured Name Patient Relationship to Insured Coverage Start Date Coverage End Date MEDICARE RAILROAD [address] [address] [place] [address] [id number] Bridger Romero Self - patient is the insured 2 [employer] [address] [place] [address] [id number] Shahana keene Bridger Self - patient is the insured 9 MEDICATIONS ADMINISTERED Medication Instructions Date of Administration Dosage Notes Lupron 11/29/2017 7.5 mg MEDICAL (GENERAL) HISTORY Medical History History ICD Code DM HTN Surgical History Surgery Date(Month/Year) Rt foot surgery
--- OUTSIDE RECORDS SUMMARY | 2025-05-06 10:30 | XMS_ITS | Patient Health Record ---
Author Organization [facility] Address [address] [place] [address] Care Team Providers Care Director Consumer Affairs Name Role Phone Zuri Tolbert MD Unavailable [...] W/U Status Risk Notes Problem Pleural effusion (99276174) Pleural effusion, right (J90) Active confirmed Plan Of Treatment No Information Insurance Providers Payer Name Payer Address Payer Phone Subscriber Number Group Number Insured Name Patient Relationship to Insured Coverage Start Date Coverage End Date MEDICARE RAILROAD [address] [address] [place] [address] [id number] Bridger Romero Self - patient is the insured [employer] [place] [address] [place] [address] [phone] [id number] Bridger Romero Self - patient is the insured Medical (General) History Medical History History ICD Code DM HTN Asthma Cancer Arthritits Surgical History Surgery Date(Month/Year) removal of partial lung rebuild of right heel
--- OUTSIDE RECORDS SUMMARY | 2025-05-06 10:30 | XMS_ITS | Encounter Summary ---
Author Organization [facility] [employer] [facility] Address [id number] [address] [place] [address] Care Team Providers Care Plate Printer Name Role Phone Tab Barfield DO Primary Care Provider [phone] Encounter Details Date Type Department Care Team (Late st Contact Info) Description 05/11/2021 Orders Only [facility] Pulmonary/Sleep Medicine [address] [address] Jayshree Qureshi, [facility] HE[facility] OCCUPATIONAL THERAPIST [address] [place] [address], [address] [place] [address] Social History Tobacco Use Types Packs/Day [...] on filedocumented in this encounter Care Teams Plate Printer Relationship Specialty [place] [address] [place] [address] PCP - General Internal Medicine 12/15/20 documented as of this encounter
--- OUTSIDE RECORDS SUMMARY | 2025-05-06 10:31 | XMS_ITS | Encounter Summary ---
Author Organization [employer] Address [id number] [address] [place] [address] Care Team Providers Care Cherry Cutter Name Role Phone Tab Barfield DO Primary Care Provider [phone] Reason for Visit * Reason Comments Med Refill Encounter Details Date Type Department Care Team (Late st Contact Info) Description 07/01/2022 Refill [facility] Pulmonary/Sleep Medicine [address] [address] Jayshree Qureshi, WEAVING INSPECTOR-NEGRITO [address] [place] [address] Moderate persistent asthma without complication Social [...] complication documented in this encounter Care Teams Cherry Cutter Relationship Specialty Start Date End Date Tab Barfield DO [address] [place] [address] PCP - General Internal Medicine 12/15/20 documented as of this encounter
--- OUTSIDE RECORDS SUMMARY | 2025-05-06 10:33 | XMS_ITS | CCD ---
Author Organization [facility] CliniSyin Care Team Providers Care It Infrastructure Project Manager Name Role Phone Tab Barfield DO Primary Care Provider SAMSA ., MELANIE Admitting Unavailable SAMSA ., MELANIE Attending Unavailable TYRESE, DR HOOD Primary Care Unavailable ZIRUBÉN, DR ARTURO Quinn Consulting Unavailable SAMSA ., [...] Unavailable DR TAB BARFIELD Primary Care Unavailable HERBERTJOSÉ BARBER Consulting Unavailab le RAMIN ., CHAKA Admitting Unavailable RAMIN ., CHAKA Attending Unavailable NEWBRITTANI, AZALEA Consulting Unavailable SAMSA ., MELANIE Admitting Unavailable SAMSA ., MELANIE Attending Unavailable DR TAB BARFIELD Primary Care Unavailable SAMSA ., MELANIE Consulting Unavailable SAMSA ., MELANIE Admitting Unavailable SAMSA ., MELANIE Attending Unavailable DR TBA BARFIELD Primary Care Unavailable Tab Barfield Unavailable Tab Barfield DO Primary Care Provider Samsa DO, Melanie P Unavailable DO Tab Barfield Primary Care Provider MD Jamar Wray Attending Provider Jamar Wray Admitting Unavailable Jamar Wray Attending Unavailable Tab Barfield Primary Care Unavailable Tab Barfield DO Primary Care Provider Unavailable Primary Care Provider UnavailVIVEK Judge Attending Unavailable Tab Barfield DO Primary Care Provider [phone] Gabe Banerjee MD Attending Provider [phone] Tab Barfield DO Attending Provider [phone] TAB BARFIELD Primary Care Unavailable GABE BANERJEE Attending Unavailable TAB BARFIELD Primary Care Unavailable TAB BARFIELD Referring Unavailable MARY BERMAN Attending Unavailable TAB BARFIELD Primary Care Unavailable Allergies Allergy Classification Reported Allergen(s) Allergy Type Date of Onset Reaction(s) Facility (10 sources) Penicillins; Translations: [PENICILLINS] Drug Allergy 12-09-19 18 Swelling [facility] (1 source) Penicillins Drug allergy (disorder) 07-11-20 13 [facility] Repository (3 sources) Penicillin Drug Allergy Unknown [facility] Other (16 sources) Penicillins (Antibiotic) Drug allergy Unknown [facility] Other (16 sources) Substance with penicillin structure and antibacterial mechanism of action (substance) Drug allergy Unknown [facility] Other (3 sources) patient allergy list reviewed by nurse or physicia Propensity to adverse reactions 12-20-19 19 Comment:Done [facility] Other (3 sources) Allergies Reconciled Propensity to adverse reactions Unknown [facility] Other (1 source) Penicillins Drug allergy (disorder) 06-22-20 23 [facility] Repository (2 sources) Penicillins Drug Allergy 12-09-19 18 Rash, Swelling, Unknown [facility] (3 sources) Penicillins Drug Allergy 12-09-19 18 Swelling [facility] Medications Current Medications Medication Drug Class(es) Dates Sig (Normalized) Sig (Original) [id number] 200 actuat albuterol 0.09 mg/actuat metered dose inhaler (14 sources) beta2-Adrenergic Agonist Start: 12-22-2023 take 1 puff(s) by inhalation every six hours as needed for wheezing Albuterol Sulfate 90 mcg/actuation HFA aerosol inhaler Active 2 PUFF INHALATION Every 6 hours as needed for shortness of breath or wheezing 17 90 May 10th, 2024 12:00am Complies with drug therapy Start: 12-22-2023 take 1 puff(s) by in halation every six hours Albuterol Sulfate Active 2 PUFF INHALATION Every 6 hours December 22, 2023 12:00am Start: 05-06-2021 take 2 puff(s) by in halation every six hours as needed albuterol HFA (PROVENTIL HFA, VENTOLIN HFA) 90 mcg/actuation inhaler Inhale 2 Puffs as instructed every 6 hours as needed. 05/06/2021 Active Comment on above: Inhale 2 Puffs as in structed every 6 hours as needed. Albuterol Sulfate 90 mcg/actuation HFA aerosol inhaler [...] Calcium Channel Michael Start: 04-23-20 End: 05-28-20 take 1 tablet by mouth once daily Amlodipine 10 mg tablet Active 10 MG PO Daily May 28, 2024 5:31pm Complies with drug therapy Start: 04-18-2017 End: 04-23-2024 amLODIPine (NORVASC) 5 mg ta blet 09/15/2017 Active betamethasone 0.5 mg/ml topical cream (2 sources) Corticosteroid Start: 03-25-2025 betamethasone dipropionate 0.05 % cream Indications: Prurigo nodularis Apply to affected areas, up to twice a day when flared, do not use one the face, groin, or underarms, 30 day supply 15 g 11 03/25/2025 Active Blood-Glucose Meter (Contour Next Glucose Meter) kit (1 source) Start: 04-28-2025 Blood-Glucose Meter (Contour Next Glucose Meter) kit Active 0 .Route 1 April 28, 2025 12:00am Use to test home BS qd Contour Test - (20 sources) Start: 12-12-2022 Contour Test - Use to test home BS qd In Vitro daily for 30 days December, Active Fish Oils (20 sources) Fish Oil Active 60 actuat fluticasone propionate 0.5 mg/actuat / salmeterol 0.05 mg/actuat dry powder inhaler (20 sources) Corticosteroid, beta2-Adrenergic Agonist Start: 03-06-2025 take 1 dose by mouth twice daily Fluticasone-Salmete rol 500-50 MCG/ACT aerosol powder INHALE 1 DOSE BY MOUTH TWICE DAILY FOR 30 DAYS 03/06/2025 Active Start: 09-12-2024 Fluticasone Pr opion-Salmeterol 500-50 mcg/dose blister with device Active 1 INH INHALATION Twice daily 60 September 12, 2024 8:38pm Complies with drug therapy Start: 09-12-2024 Start: 09-12-2024 Fluticasone Pr opion-Salmeterol [...] on above: INHALE 1 DOSE BY MAIKOL TWICE DAILY 30 actuat fluticasone furoate 0.1 [...] (20 sources) Leukotriene Receptor Antagonist Start: 11-29-19 take 1 tablet by mouth once daily Montelukast 10 mg tablet Active 0 .ROUTE .COMPLEX 90 November 28, 2024 6:52am Take 1 tablet by mouth once daily Complies with drug therapy Start: 07-15-2021 End: 11-28-2024 montelukast (SINGULAIR) 10 [...] 2017 11:00pm Multivitamin Act kaleigh Multivitamin Tablet (3 sources) Start: 04-18-2017 take 1 tablet by mouth once daily Multivitamin Tablet Active 1 TAB PO Daily April 18, 2017 12:00am Complies with drug therapy Start: 04-18-2017 take 1 tablet by maikol th once daily Start: 04-18-2017 take 1 tablet by maikol [...] take 1 tablet by mouth once daily Pravastatin 80 mg tablet Active 0 .ROUTE .COMPLEX 90 January 28, 2025 12:44pm Take 1 tablet by mouth once daily Complies with drug therapy Start: 04-18-2017 End: 01-28-2025 pravastatin (PRAVACHOL) 80 [...] a day for 30 days Apr, Active Semaglutide (1 source) Start: 04-28-2025 inject 0.25 mg by subcutaneous injection every week, then inject 0.5 mg by subcutaneous injection every week Semaglutide (Ozempic) 0.25 mg or 0.5 mg (2 mg/3 mL) pen injector Active 0 SUBCUT every week 3 April 28, 2025 12:00am subcutaneously every week; 0.25mg SC x 4 weeks, then increase to 0.5mg SC weekly Complies with drug therapy 125 ml sodium chloride 9 mg/ml prefilled syringe (5 sources) Start: 01-26-2023 End: 04-26-2024 sodium chloride 0.9 % (flush) 10 mL (BD POSIFLUSH) tamsulosin hydrochloride 0.4 mg oral capsule (20 sources) alpha-Adrener gic Michael Start: 01-10-2023 End: 12-23-2024 tamsulosin (FLOMAX) 0.4 mg 01/10/2023 Active Start: 07-15-2021 End: 03-25-2024 take 1 capsule by mouth once daily Tamsulosin 0.4 mg capsule Discontinued 0.4 MG PO Daily 90 90 January 09, 2024 12:59pm March 25, 2024 5:13pm Start: 11-21-2017 End: 04-05-2022 tamsulosin ER (FLOMAX) 0.4 m g cp24 twice daily. 0 11/21/2017 04/05/2022 Discontinued (Discontinued by Patient) take 1 capsule by mo ut every twenty-four hours in the morning tamsulosin (Flomax) 0.4 MG 24 hr capsule Take 0.4 mg by mouth in the morning and 0.4 mg before bedtime. Active Comment on above: twice daily. Turmeric Root Extract 500 mg capsule (3 sources) Start: 12-23-2024 take 1 capsule by mouth once daily Turmeric Root Extract 500 mg capsule Active 500 MG PO Daily December 23, 2024 12:00am Complies with drug therapy Start: 12-23-2024 take 1 capsule by mo uth once daily Start: 12-23-2024 take 1 capsule by mo uth once daily Turmeric Root Extract 500 mg capsule Active 500 MG PO Daily December 23, 2024 12:00am ubidecarenone 75 mg oral cap nehemias (5 sources) Start: 12-22-2023 Coenzyme Q10 ( Ultra Coq10) 75 mg capsule Active 75 MG PO Daily December 22, 2023 12:00am Complies with drug therapy Completed/Discontinued Medications Medication Drug Class(es) Dates Sig (Normalized) Sig (Original) albuterol 0.833 mg/ml / ipratropium bromide 0.167 mg/ml inhalation solution (9 sources) Anticholinergic, beta2-Adrenergic Agonist Start: 02-25-2021 End: 04-04-2025 ipratropium-albuter ol (DUONEB) 0.5 mg-3 mg(2.5 mg base)/3 mL nebu Inhale 3 mL as instructed. 02/25/2021 04/04/2025 Discontinued (Discontinued by Patient) Comment on above: Inhale 3 mL as instr ucted. Albuterol-Budesonid e (2 sources) Start: 12-22-2023 End: 12-22-2023 Albuterol-Budesonid e Discontinued 2 INH INHALATION Four times daily 21.4 December 22, 2023 12:00am December 22, 2023 5:29pm Needs 2 inhalers Start: 12-22-2023 Albuterol-Vining sonide Active 2 INH INHALATION Four times daily 21.4 December 22, 2023 12:00am Needs 2 inhalers Albuterol-Budesonide (2 sources) Start: 12-22-2023 End: 12-22-2023 Albuterol-Budesonide 90-80 mcg/actuation [...] tablet by mouth once daily at bedtime Escitalopram Oxalate 10 mg tablet Discontinued 0 .ROUTE .COMPLEX 90 June 28, 2024 12:17pm December 23, 2024 3:26pm TAKE 1 TABLET BY MOUTH ONCE DAILY AT BEDTIME Start: 03-01-2020 End: 01-01-2024 take 1 tablet by mouth once daily at bedtime escitalopram oxalate (LEXAPRO) 10 mg tablet Take 10 mg by mouth daily at bedtime. 03/01/2020 Active Comment on above: Take 10 mg by mouth daily at bedtime. Fluticasone Propion-Salmeterol 500-50 mcg/dose blister with device (1 source) Start: End: 01-30-202 5 Fluticasone Propion-Salmeterol 500-50 mcg/dose blister with device Discontinued 1 INH INHALATION Twice daily 60 30 September 12, 2024 8:37pm September 12, 2024 8:39pm metFORMIN hydrochloride 500 mg oral tablet (20 sources) Biguanide Start: 3 End: 5 take 1 tablet by mouth once daily Metformin 500 mg tablet Discontinued 500 MG PO Daily June 22, 2023 1:00am March 06, 2024 3:41pm mirtazapine 7.5 mg oral tablet (20 sources) Start: 0 End: 5 take 1 tablet by mouth once daily at bedtime Mirtazapine (REMERON) 7.5 mg tablet Take 7.5 mg by mouth daily at bedtime. 03/25/2020 04/04/2025 Discontinued (Discontinued by another Health Care Provider) Comment on above: Take 7.5 mg by mouth daily at bedtime. multivitamin tablet (3 sources) take 1 tablet by mouth once daily multivitamin tablet Take 1 tablet by mouth once daily. 0 Active Comment on above: Take 1 tablet by maikol th once daily. [place] 8-Kqr-Rvc-Fish Oil (Fish Oil) 1,000 mg (120 mg-180 mg) Capsule (6 sources) Start: 7 End: 9 [place] 1-Zgj-Jni-Fish Oil (Fish Oil) 1,000 mg (120 mg-180 mg) Capsule Discontinued 1200 MG PO Daily April 18, 2017 12:00am January 02, 2019 2:24pm Start: 04-18-2017 End: 01-02-2019 [place] 3-Nlo-Nfe-Fish Oil (Fi sh Oil) 1,000 mg (120 [...] TH 2 HOURS BEFORE BEDTIME Turmeric extract (13 sources) Start: 06-22-2023 End: 12-21-2023 take 1 [...] Onset: 1 Chronic Cancer of bronchus; lung (3 sources) History of malignant neoplasm of thoracic cavity structure; Translations: [Personal history of other malignant neoplasm of bronchus and lung] Onset: 5 04-22-2025 Episodic Cancer of prostate (20 sources) Malignant tumor of prostate; Translations: [Malignant neoplasm of prostate] Onset: 8 Chronic Comment on above: Dx: [place] 4+4, grp 4 - 2017, EBRT - 03/2018, ADT 18mo [...] as uncontrolled] Chronic Disorders of lipid metabolism (15 sources) Mixed hyperlipidemia; Translations: [Mixed hyperlipidemia] Onset: 5 12-21-2023 Chronic Esophageal disorders (20 sources) Stricture of esophagus; Translations: [Esophageal obstruction] Chronic Esophageal disorders (3 sources) Esophageal disorders; Translations: [Gastro-esophageal reflux disease with esophagitis, without bleeding] Essential hypertension (20 sources) Essential hypertension; Translations: [Essential (primary) hypertension] Onset: 4 Chronic Comment on above: Echo: LVEF 55%, mild LVH, normal RV size/function - 04/2025 Gastrointestinal hemorrhage (3 sources) Hemorrhage of rectum [...] foot] Onset: 5 Chronic Malaise and fatigue (7 sources) Malaise and fatigue; Translations: [Other malaise [...] Long-term current use of inhaled steroid; Translations: [intermodal customer service (current) use of inhaled steroids] Episodic Other and unspecified benign neoplasm (20 sources) Tubulovillous adenoma of rectum; Translations: [Benign neoplasm of rectum] Episodic Other and unspecified benign neoplasm (3 sources) Benign neoplasm of colon; Translations: [Benign neoplasm of colon] Episodic Other and unspecified benign neoplasm (6 sources) History of polyp of colon; Translations: [...] the digestive system] Episodic Other gastrointestinal disorders (6 sources) Dysphagia; Translations: [Dysphagia, unspecified] 04-18-2017 Episodic [...] of falling] Episodic Other lower respiratory disease (7 sources) Dyspnea; Translations: [Shortness of breath] 04-28-2025 Episodic Other lower respiratory disease (3 sources) Cough; Translations: [Cough, unspecified] Episodic Other lower respiratory disease (3 sources) Lung field abnormal; Translations: [Other nonspecific abnormal finding of lung field] Episodic Other lower respiratory disease (3 sources) Hypoxemia; Translations: [Hypoxemia] Episodic Other lower respiratory disease (4 sources) Nodule of lung; Translations: [Solitary pulmonary nodule] 01-02-2024 Episodic Comment on above: CT: 6mm LLL, 4mm RML - 12/2023,CT: 7mm LLL - 06/2024,CT: 4mm RML, 6mm LLL - 12/2024 Other lower respiratory disease (4 sources) Restrictive lung disease; Translations: [Other disorders [...] [Other forms of dyspnea] 04-22-2025 Episodic Other lower respiratory disease (1 source) Other forms of dyspnea; Translations: [Dyspnea on exertion] Onset: Episodic Other lower respiratory disease (1 source) Other nonspecific abnormal finding of lung field; Translations: [Multiple lung nodules] Onset: 5 Episodic Other non-traumatic joint disorders (3 sources) 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; 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, ankle and foot] Onset: 4 Chronic Other nutritional; endocrine; and metabolic disorders (7 sources) Obesity; Translations: [Obesity, unspecified] 04-23-2024 Chronic [...] (adult) (pediatric)] 12-21-2023 Chronic Residual codes; unclassified (11 sources) Obstructive sleep apnea (adult) (pediatric); Translations: [...] to health] Onset: 0 Episodic Substance-related disorders (8 sources) Tobacco user; Translations: [Nicotine dependence, cigarettes, in remission] 04-07-2025 Chronic Unclassified (3 sources) Long-term current use of drug therapy; Translations: [Long-term (current) use of other medications] Onset: 6 Unclassified (3 sources) Eosinophilia, unspecified; Translations: [Eosinophilia, unspecified] Unclassified (1 source) Encounter for screening for malignant neoplasm of colon; Translations: [Encounter for screening for malignant neoplasm of colon] Onset: 3 Viral infection (3 sources) Disease caused by 2019-nCoV; Translations: [COVID-19] [...] Test Name Value Interpretation Reference Range Facility OV 04-22-2025 CNOV Office Visit (PULSAN ) -- TRAVISJACINTA Rosario ([id number]) 1945 M Date Time Provider Department 04/22/25 2:45 PM MARY BERMAN PULSAN During your visit today, we recorded the following information about you: Temperature Pulse Respiration Blood pressure 97.4 degrees 71/minute 16/minute 123/68 Weight 95.2 kg Mary Berman MD 04/22/2025 4:19 PM Signed NEW PATIENT OFFICE VISIT Jacinta Rosario Travis is a 79 year old male who [...] CT scan in June, as 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 RV and RA size normal. No sign (more content not included)... Normal [facility] CNOVon 04-04-2025 CNOV Office Visit (RADTSA ) -- JACINTA ROBLES ([id number]) 1945 M Date Time Provider Department 04/04/25 2:00 PM GABE BANERJEE During your visit today, we recorded the following information about you: Temperature Pulse Respiration Blood pressure 97.3 degrees 67/minute 16/minute 120/59 Weight 94.6 kg Gabe Banerjee MD 04/29/2025 9:24 AM Addendum Radiation Oncology - Follow Up Note PATIENT NAME: Jacinta Robles PATIENT DIAGNOSIS/PATIENT IDENTIFICATION: Mr. Robles is a 79-year old gentleman with Stage IIIA, [id number] adenocarcinoma of the prostate; high recurrence risk (cT1c, PSA 5.7, GS 4+4=8/10). Prostate MRI showed no evidence of seminal vesicle invasion or extracapsular extension or pelvic lymphadenopathy. He completed a course of definitive EBRT on 03/30/2018 (7920 cGy in 44 fractions) with ADT (18 months). INTERVAL HISTORY: Mrs. Robles returns to clinic today for routine follow-up approximately seven years after the completion of his radiation treatments and one year since his last visit on 03/29/2024. In the interim, he has been doing well denies any burning/discomfort urination and notes nocturia once. He notes no trouble starting stream or straining or incomplete emptying or weakening of his stream or hematuria. He does have occasional incontinence/leakage but does not require any pads. He notes regular bowel movements no diarrhea or pain [...] a 79-year old gentleman with Stage IIIA, [id number] adenocarcinoma of the prostate; high recurrence risk [...] with previous value of 0.21 ng/mL a year ago on 03/20/2024. I will plan to see [...] which included preparing to see the patient, htxm-og-xodv patient care, and counseling and educating the patient/family/caregiver. This document has been created with the use of voice recognition technology. It may contain inaccuracies, misspellings, inaccurate syntax or inappropriate word context that are a result of the inadequacies/shortcomings of said technology/software. Protective Signal Operations Supervisor: HANDP ID: [id number] 04/21/2025 12:29 PM Author: JUNIOR PETERS Signed by EXTERNAL PROVIDER on 04/21/2025 at 12:29 PM Document text: Allergies As of Date: 04/04/2025 Noted Allergy Reaction PENICILLINS 12/08/2017 7 - Swelling Date Reviewed: 04/04/2025 Reviewed by: Ariella Davis RN - Fully Assessed Reason for Visit: Prostate Cancer [590] Primary Visit Diagnosis:Malignant neoplasm of prostate (HCC) [C61] Order(s (more content not included)... Normal [facility] No Panel InformationOrdered By: Gabe Banerjee on 03-28-2025 Prostate Specific Antigen 0.20 ng/mL <2.60 [facility] Comment on above: Total PSA test metho dology used is the Electrochemiluminescence Immunoassay by [employer]. Total PSA values by differing methodologies cannot be interchanged. PSA SerPl-mCncon 03-28-2025 Prostate specific Ag [Mass/Vol] 0.20 ng/mL Normal <2.60 [facility] Comment on above: Order Comment: Speci men Type: BLOOD SPECIMEN Ordering Facility: [facility] Address: [address] [place] [address] [address], [place] [address] Result Comment: Tota l PSA test methodology used is the Electrochemiluminescence Immunoassay by [employer]. Total PSA values by differing methodologies cannot be interchanged. Performed By: #### 2 [id number] #### [facility] CLIA [id number] [address] [place] [address] [place] No Panel Informationon 03-20 Prostate Specific Antigen 0.21 ng/mL <2.60 [facility] Comment on above: Total PSA test metho dology used is the Electrochemiluminescence Immunoassay by [employer]. Total PSA values by differing methodologies cannot be interchanged. Glucose Glucometer (BldC) [M ass/Vol]Ordered By: Jamar Wray on 06-22-2023 Glucose [Mass/Vol] 142 mg/dL [facility] Comment on above: Random Glucose Refer ence Range is dependent on time and content of last meal. Glucose of more than 200 mg/dL in a nonstressed, ambulatory subject supports the diagnosis of Diabetes Mellitus. Glucose Poct Glucometerson 1 08-22-2022 Commemt1 Glu2: Cleaned Meter Normal [facility] Comment on above: Result Comment: PERF ORMED BY: [facility] [address] [place] [address] PATHOLOGIST SLATE CUTTER OPERATOR KALIN ALCANTARA M.D. Performed By: #### G ADRIANA #### Point of Care testing , Glucose [Mass/Vol] 142 mg/dL Normal [facility] Comment on above: Result Comment: [facility] Glucose Reference Range is dependent on time and content of last meal. Glucose of more than 200 mg/dL in a nonstressed, ambulatory subject supports the diagnosis of Diabetes Mellitus. Performed By: #### G ADRIANA #### Point of Care testing , Chandan 06-22-2023 L ------ Specimen: [id number] Received: 06/22/23 Status: RONEL Welsh Num: [id number] Spec Type: Surgical Subm Dr: Jamar Wray MD Tissues: A Colon Biopsy (ASC POLYP) B Colon Biopsy (TRANSVERSE POLYP) C Colon Biopsy (DESC POLYP) Procedures: HE/6, Gross/Micro L4/3 Age/ Patient Sex Location Account Attending Physician Jacinta oRbles/[facility] [id number] Jamar Wray MD SPEC NUM: [id number] RECD: 06/22/23 STATUS: ROENL WELSH NUM: [id number] ROSETTA: 06/22/23- SUBM DR: Jamar Wray MD ENTERED: 06/22/[address]: EMORY TYPE: Surgical DEPT: S ORDERED: [...] patient's name, date of and transverse Specimen: [id number] Received: 06/22/23 Status: RONEL Welsh Num: [id number] Spec Type: Surgical Subm Dr: Jamar Wray MD Tissues: A Colon Biopsy (ASC POLYP) B Colon Biopsy (TRANSVERSE POLYP) C Colon Biopsy (DESC POLYP) Procedures: SOUMYA, Gross/Micro L4/3 Patient: NirmalscottJacinta [id number] (Continued) Specimen: [id number] Received: 06/22/23 (Continued) Gross Description (Continued) Signed (signature on file) Jose G Perdue MD 06/23/23 1616 Specimen: [id number] Received: 06/22/23 Status: RONEL Welsh Num: [id number] Spec Type: Surgical Subm Dr: Jamar Wray MD Tissues: A Colon Biopsy (ASC POLYP) B Colon Biopsy (TRANSVERSE POLYP) C Colon Biopsy (DESC POLYP) Procedures: HE/6, Gross/Micro L4/3 Patient: TravisJacinta [id number] (Continued) Specimen: [id number] Received: 06/22/23 (Continued) Gross Description (Continued) polyps [...] microscopic examination confirms the diagnosis. CPT Codes 05246k7 Specimen: [id number] Received: 06/22/23 Status: RONEL Blaise Num: [id number] Spec Type: Surgical Subm Dr: Jamar Wray MD Tissues: A Colon Biopsy (ASC POLYP) B Colon Biopsy (TRANSVERSE POLYP) C Colon Biopsy (DESC POLYP) Procedures: HE/6, Gross/Micro L4/3 Patient: Jacinta Robles [id number] (Continued) Signed (signature on file) Dami-Dank Perdue MD 06/23/23 1616 Normal [facility] No Panel InformationOrdered By: Jamar Wray on 06-22-2023 Bedside Glucose Comment Glu2: cleaned meter [facility] AMMONIA BLDon 04-27-2023 Ammonia (P) [Moles/Vol] 39 umol/L 16 - 60 umol/L [facility] Ammonia (P) [Moles/Vol] 11 umol/L Low 16 - 60 umol/L [facility] ARTERIAL BLOOD GASESon 04-27 Base deficit (BldA) [Moles/Vol] -7 mmol/L Low -2 - 0 mmol/L [facility] Calcium.ionized (Bld) [Mass/Vol] 1.26 mmol/L 1.08 - 1.30 mmol/L [facility] Calcium.ionized adjusted to pH 7.4 (BldA) [Moles/Vol] 1.21 mmol/L 1.08 - 1.30 mmol/L [facility] Carboxyhemoglobin (BldA) [Mass fraction] 0.2 % 0.0 - 2.0 % [facility] CO2 (Bld) [Partial pressure] 33 mm Hg Low 36 - 46 mm Hg [facility] CO2 adjusted to patient's actual temperature (Bld) [Partial pressure] 33 mmHg Low 36 - 46 mmHg [facility] Glucose [Mass/Vol] 139 mg/dL High 60 - 105 mg/dL [facility] HCO3 (Bld) [Moles/Vol] 17 mmol/L Low 22 - 26 mmol/L [facility] Hematocrit (Bld) [Volume fraction] 43.1 % 39.0 - 51.0 % [facility] Hemoglobin (Bld) [Mass/Vol] 14.0 g/dL 13.0 - 17.0 g/dL [facility] Lactate [Moles/Vol] 4.4 mmol/L High 0.5 - 2. 2 mmol/L [facility] Methemoglobin (Bld) [Mass fraction] 1.2 % 0.0 - 1.5 % [facility] Oxygen (Bld) [Partial pressure] 107 mm Hg High 85 - 95 mm Hg [facility] Oxygen adjusted to patient's actual temperature (Bld) [Partial pressure] 107 mmHg High 85 - 95 mmHg [facility] Oxyhemoglobin (BldA) [Mass fraction] 96 % 95 - 98 % [facility] Patient Position 10 min. Recovery [facility] pH (Bld) 7.34 [pH] Low 7.35 - 7.45 [facility] pH adjusted to patient's actual temperature (Bld) 7.34 Low 7.35 - 7.45 [facility] Potassium [Moles/Vol] 4.3 mmol/L 3.5 - 5.0 mmol/L [facility] Sodium [Moles/Vol] 144 mmol/L 136 - 144 mmol/L [facility] Base deficit (BldA) [Moles/Vol] -7 mmol/L Low -2 - 0 mmol/L [facility] Calcium.ionized (Bld) [Mass/Vol] 1.21 mmol/L 1.08 - 1.30 mmol/L [facility] Calcium.ionized adjusted to pH 7.4 (BldA) [Moles/Vol] 1.19 mmol/L 1.08 - 1.30 mmol/L [facility] Carboxyhemoglobin (BldA) [Mass fraction] 1.4 % 0.0 - 2.0 % [facility] CO2 (Bld) [Partial pressure] 30 mm Hg Low 36 - 46 mm Hg [facility] CO2 adjusted to patient's actual temperature (Bld) [Partial pressure] 30 mmHg Low 36 - 46 mmHg [facility] Glucose [Mass/Vol] 131 mg/dL High 60 - 105 mg/dL [facility] HCO3 (Bld) [Moles/Vol] 16 mmol/L Low 22 - 26 mmol/L [facility] Hematocrit (Bld) [Volume fraction] 42.9 % 39.0 - 51.0 % [facility] Hemoglobin (Bld) [Mass/Vol] 14.0 g/dL 13.0 - 17.0 g/dL [facility] Lactate [Moles/Vol] 4.9 mmol/L High 0.5 - 2. 2 mmol/L [facility] Methemoglobin (Bld) [Mass fraction] 1.0 % 0.0 - 1.5 % [facility] Oxygen (Bld) [Partial pressure] 109 mm Hg High 85 - 95 mm Hg [facility] Oxygen adjusted to patient's actual temperature (Bld) [Partial pressure] 109 mmHg High 85 - 95 mmHg [facility] Oxyhemoglobin (BldA) [Mass fraction] 96 % 95 - 98 % [facility] Patient Position 3 min. Recovery [facility] pH (Bld) 7.36 [pH] 7.35 - 7.45 [facility] pH adjusted to patient's actual temperature (Bld) 7.36 7.35 - 7.45 [facility] Potassium [Moles/Vol] 4.1 mmol/L 3.5 - 5.0 mmol/L [facility] Sodium [Moles/Vol] 141 mmol/L 136 - 144 mmol/L [facility] Base deficit (BldA) [Moles/Vol] -5 mmol/L Low -2 - 0 mmol/L [facility] Calcium.ionized (Bld) [Mass/Vol] 1.24 mmol/L 1.08 - 1.30 mmol/L [facility] Calcium.ionized adjusted to pH 7.4 (BldA) [Moles/Vol] 1.21 mmol/L 1.08 - 1.30 mmol/L [facility] Carboxyhemoglobin (BldA) [Mass fraction] 1.0 % 0.0 - 2.0 % [facility] CO2 (Bld) [Partial pressure] 36 mm Hg 36 - 46 mm Hg [facility] CO2 adjusted to patient's actual temperature (Bld) [Partial pressure] 36 mmHg 36 - 46 mmHg [facility] Glucose [Mass/Vol] 146 mg/dL High 60 - 105 mg/dL [facility] HCO3 (Bld) [Moles/Vol] 20 mmol/L Low 22 - 26 mmol/L [facility] Hematocrit (Bld) [Volume fraction] 44.6 % 39.0 - 51.0 % [facility] Hemoglobin (Bld) [Mass/Vol] 14.5 g/dL 13.0 - 17.0 g/dL [facility] Lactate [Moles/Vol] 3.6 mmol/L High 0.5 - 2. 2 mmol/L [facility] Methemoglobin (Bld) [Mass fraction] 1.2 % 0.0 - 1.5 % [facility] Oxygen (Bld) [Partial pressure] 69 mm Hg Low 85 - 95 mm Hg [facility] Oxygen adjusted to patient's actual temperature (Bld) [Partial pressure] 69 mmHg Low 85 - 95 mmHg [facility] Oxyhemoglobin (BldA) [Mass fraction] 91 % Low 95 - 98 % [facility] Patient Position 100W MAX [facility] pH (Bld) 7.35 [pH] 7.35 - 7.45 [facility] pH adjusted to patient's actual temperature (Bld) 7.35 7.35 - 7.45 [facility] Potassium [Moles/Vol] 4.9 mmol/L 3.5 - 5.0 mmol/L [facility] Sodium [Moles/Vol] 142 mmol/L 136 - 144 mmol/L [facility] Base deficit (BldA) [Moles/Vol] -4 mmol/L Low -2 - 0 mmol/L [facility] Calcium.ionized (Bld) [Mass/Vol] 1.23 mmol/L 1.08 - 1.30 mmol/L [facility] Carboxyhemoglobin (BldA) [Mass fraction] 1.2 % 0.0 - 2.0 % [facility] CO2 (Bld) [Partial pressure] 36 mm Hg 36 - 46 mm Hg [facility] CO2 adjusted to patient's actual temperature (Bld) [Partial pressure] 36 mmHg 36 - 46 mmHg [facility] Glucose [Mass/Vol] 138 mg/dL High 60 - 105 mg/dL [facility] HCO3 (Bld) [Moles/Vol] 20 mmol/L Low 22 - 26 mmol/L [facility] Hematocrit (Bld) [Volume fraction] 43.2 % 39.0 - 51.0 % [facility] Hemoglobin (Bld) [Mass/Vol] 14.1 g/dL 13.0 - 17.0 g/dL [facility] Lactate [Moles/Vol] 2.9 mmol/L High 0.5 - 2. 2 mmol/L [facility] Methemoglobin (Bld) [Mass fraction] 0.4 % 0.0 - 1.5 % [facility] Oxygen (Bld) [Partial pressure] 74 mm Hg Low 85 - 95 mm Hg [facility] Oxygen adjusted to patient's actual temperature (Bld) [Partial pressure] 74 mmHg Low 85 - 95 mmHg [facility] Oxyhemoglobin (BldA) [Mass fraction] 93 % Low 95 - 98 % [facility] pH (Bld) 7.37 [pH] 7.35 - 7.45 [facility] adjusted to patient's actual temperature (Bld) 7.37 7.35 - 7.45 [facility] Potassium [Moles/Vol] 4.7 mmol/L 3.5 - 5.0 mmol/L [facility] Sodium [Moles/Vol] 142 mmol/L 136 - 144 mmol/L [facility] Base deficit (BldA) [Moles/Vol] -7 mmol/L Low -2 - 0 mmol/L [facility] Calcium.ionized (Bld) [Mass/Vol] 1.21 mmol/L 1.08 - 1.30 mmol/L [facility] Calcium.ionized adjusted to pH 7.4 (BldA) [Moles/Vol] 1.18 mmol/L 1.08 - 1.30 mmol/L [facility] Carboxyhemoglobin (BldA) [Mass fraction] 0.9 % 0.0 - 2.0 % [facility] CO2 (Bld) [Partial pressure] 33 mm Hg Low 36 - 46 mm Hg [facility] CO2 adjusted to patient's actual temperature (Bld) [Partial pressure] 33 mmHg Low 36 - 46 mmHg [facility] Glucose [Mass/Vol] 142 mg/dL High 60 - 105 mg/dL [facility] HCO3 (Bld) [Moles/Vol] 17 mmol/L Low 22 - 26 mmol/L [facility] Hematocrit (Bld) [Volume fraction] 44.2 % 39.0 - 51.0 % [facility] Hemoglobin (Bld) [Mass/Vol] 14.4 g/dL 13.0 - 17.0 g/dL [facility] Lactate [Moles/Vol] 4.6 mmol/L High 0.5 - 2. 2 mmol/L [facility] Methemoglobin (Bld) [Mass fraction] 1.2 % 0.0 - 1.5 % [facility] Oxygen (Bld) [Partial pressure] 96 mm Hg High 85 - 95 mm Hg [facility] Oxygen adjusted to patient's actual temperature (Bld) [Partial pressure] 96 mmHg High 85 - 95 mmHg [facility] Oxyhemoglobin (BldA) [Mass fraction] 95 % 95 - 98 % [facility] Patient Position 1 min. Recovery [facility] pH (Bld) 7.34 [pH] Low 7.35 - 7.45 [facility] pH adjusted to patient's actual temperature (Bld) 7.34 Low 7.35 - 7.45 [facility] Potassium [Moles/Vol] 4.3 mmol/L 3.5 - 5.0 mmol/L [facility] Sodium [Moles/Vol] 141 mmol/L 136 - 144 mmol/L [facility] Base deficit (BldA) [Moles/Vol] -4 mmol/L Low -2 - 0 mmol/L [facility] Calcium.ionized (Bld) [Mass/Vol] 1.22 mmol/L 1.08 - 1.30 mmol/L [facility] Calcium.ionized adjusted to pH 7.4 (BldA) [Moles/Vol] 1.20 mmol/L 1.08 - 1.30 mmol/L [facility] Carboxyhemoglobin (BldA) [Mass fraction] 1.2 % 0.0 - 2.0 % [facility] CO2 (Bld) [Partial pressure] 35 mm Hg Low 36 - 46 mm Hg [facility] CO2 adjusted to patient's actual temperature (Bld) [Partial pressure] 35 mmHg Low 36 - 46 mmHg [facility] Glucose [Mass/Vol] 138 mg/dL High 60 - 105 mg/dL [facility] HCO3 (Bld) [Moles/Vol] 20 mmol/L Low 22 - 26 mmol/L [facility] Hematocrit (Bld) [Volume fraction] 42.0 % 39.0 - 51.0 % [facility] Hemoglobin (Bld) [Mass/Vol] 13.7 g/dL 13.0 - 17.0 g/dL [facility] Lactate [Moles/Vol] 1.8 mmol/L 0.5 - 2. 2 mmol/L [facility] Methemoglobin (Bld) [Mass fraction] 0.4 % 0.0 - 1.5 % [facility] Oxygen (Bld) [Partial pressure] 71 mm Hg Low 85 - 95 mm Hg [facility] Oxygen adjusted to patient's actual temperature (Bld) [Partial pressure] 71 mmHg Low 85 - 95 mmHg [facility] Oxyhemoglobin (BldA) [Mass fraction] 93 % Low 95 - 98 % [facility] Patient Position [address] [facility] pH (Bld) 7.38 [pH] 7.35 - 7.45 [facility] pH adjusted to patient's actual temperature (Bld) 7.38 7.35 - 7.45 [facility] Potassium [Moles/Vol] 4.5 mmol/L 3.5 - 5.0 mmol/L [facility] Sodium [Moles/Vol] 142 mmol/L 136 - 144 mmol/L [facility] Base deficit (BldA) [Moles/Vol] -5 mmol/L Low -2 - 0 mmol/L [facility] Calcium.ionized (Bld) [Mass/Vol] 1.16 mmol/L 1.08 - 1.30 mmol/L [facility] Calcium.ionized adjusted to pH 7.4 (BldA) [Moles/Vol] 1.15 mmol/L 1.08 - 1.30 mmol/L [facility] Carboxyhemoglobin (BldA) [Mass fraction] 1.4 % 0.0 - 2.0 % [facility] CO2 (Bld) [Partial pressure] 33 mm Hg Low 36 - 46 mm Hg [facility] CO2 adjusted to patient's actual temperature (Bld) [Partial pressure] 33 mmHg Low 36 - 46 mmHg [facility] Glucose [Mass/Vol] 134 mg/dL High 60 - 105 mg/dL [facility] HCO3 (Bld) [Moles/Vol] 19 mmol/L Low 22 - 26 mmol/L [facility] Hematocrit (d) [Volume fraction] 41.0 % 39.0 - 51.0 % [facility] Hemoglobin (Bld) [Mass/Vol] 13.3 g/dL 13.0 - 17.0 g/dL [facility] Lactate [Moles/Vol] 1.2 mmol/L 0.5 - 2. 2 mmol/L [facility] Methemoglobin (Bld) [Mass fraction] 1.9 % High 0.0 - 1.5 % [facility] Oxygen (Bld) [Partial pressure] 75 mm Hg Low 85 - 95 mm Hg [facility] Oxygen adjusted to patient's actual temperature (Bld) [Partial pressure] 75 mmHg Low 85 - 95 mmHg [facility] Oxyhemoglobin (BldA) [Mass fraction] 93 % Low 95 - 98 % [facility] Patient Position [address] [facility] pH (Bld) 7.38 [pH] 7.35 - 7.45 [facility] pH adjusted to patient's actual temperature (Bld) 7.38 7.35 - 7.45 [facility] Potassium [Moles/Vol] 4.0 mmol/L 3.5 - 5.0 mmol/L [facility] Sodium [Moles/Vol] 142 mmol/L 136 - 144 mmol/L [facility] Base deficit (BldA) [Moles/Vol] -3 mmol/L Low -2 - 0 mmol/L [facility] Calcium.ionized (Bld) [Mass/Vol] 1.22 mmol/L 1.08 - 1.30 mmol/L [facility] Calcium.ionized adjusted to pH 7.4 (BldA) [Moles/Vol] 1.22 mmol/L 1.08 - 1.30 mmol/L [facility] Carboxyhemoglobin (BldA) [Mass fraction] 1.0 % 0.0 - 2.0 % [facility] CO2 (Bld) [Partial pressure] 34 mm Hg Low 36 - 46 mm Hg [facility] CO2 adjusted to patient's actual temperature (Bld) [Partial pressure] 34 mmHg Low 36 - 46 mmHg [facility] Glucose [Mass/Vol] 148 mg/dL High 60 - 105 mg/dL [facility] HCO3 (Bld) [Moles/Vol] 21 mmol/L Low 22 - 26 mmol/L [facility] Hematocrit (Bld) [Volume fraction] 41.3 % 39.0 - 51.0 % [facility] Hemoglobin (Bld) [Mass/Vol] 13.5 g/dL 13.0 - 17.0 g/dL [facility] Lactate [Moles/Vol] 0.9 mmol/L 0.5 - 2. 2 mmol/L [facility] Methemoglobin (Bld) [Mass fraction] 0.6 % 0.0 - 1.5 % [facility] Oxygen (Bld) [Partial pressure] 92 mm Hg 85 - 95 mm Hg [facility] Oxygen adjusted to patient's actual temperature (Bld) [Partial pressure] 92 mmHg 85 - 95 mmHg [facility] Oxyhemoglobin (BldA) [Mass fraction] 96 % 95 - 98 % [facility] Patient Position Sitting Baseline [facility] pH (Bld) 7.40 [pH] 7.35 - 7.45 [facility] pH adjusted to patient's actual temperature (Bld) 7.40 7.35 - 7.45 [facility] Potassium [Moles/Vol] 4.1 mmol/L 3.5 - 5.0 mmol/L [facility] Sodium [Moles/Vol] 140 mmol/L 136 - 144 mmol/L [facility] Base deficit (BldA) [Moles/Vol] -3 mmol/L Low -2 - 0 mmol/L [facility] Calcium.ionized (Bld) [Mass/Vol] 1.23 mmol/L 1.08 - 1.30 mmol/L [facility] Calcium.ionized adjusted to pH 7.4 (BldA) [Moles/Vol] 1.22 mmol/L 1.08 - 1.30 mmol/L [facility] Carboxyhemoglobin (BldA) [Mass fraction] 0.6 % 0.0 - 2.0 % [facility] CO2 (Bld) [Partial pressure] 35 mm Hg Low 36 - 46 mm Hg [facility] CO2 adjusted to patient's actual temperature (Bld) [Partial pressure] 35 mmHg Low 36 - 46 mmHg [facility] Glucose [Mass/Vol] 145 mg/dL High 60 - 105 mg/dL [facility] HCO3 (Bld) [Moles/Vol] 21 mmol/L Low 22 - 26 mmol/L [facility] Hematocrit (Bld) [Volume fraction] 42.3 % 39.0 - 51.0 % [facility] Hemoglobin (Bld) [Mass/Vol] 13.8 g/dL 13.0 - 17.0 g/dL [facility] Lactate [Moles/Vol] 1.0 mmol/L 0.5 - 2. 2 mmol/L [facility] Methemoglobin (Bld) [Mass fraction] 0.9 % 0.0 - 1.5 % [facility] Oxygen (Bld) [Partial pressure] 75 mm Hg Low 85 - 95 mm Hg [facility] Oxygen adjusted to patient's actual temperature (Bld) [Partial pressure] 75 mmHg Low 85 - 95 mmHg [facility] Oxyhemoglobin (BldA) [Mass fraction] 94 % Low 95 - 98 % [facility] Patient Position [address] [facility] pH (Bld) 7.39 [pH] 7.35 - 7.45 [facility] pH adjusted to patient's actual temperature (Bld) 7.39 7.35 - 7.45 [facility] Potassium [Moles/Vol] 4.3 mmol/L 3.5 - 5.0 mmol/L [facility] Sodium [Moles/Vol] 141 mmol/L 136 - 144 mmol/L [facility] Base deficit (BldA) [Moles/Vol] -4 mmol/L Low -2 - 0 mmol/L [facility] Calcium.ionized (Bld) [Mass/Vol] 1.12 mmol/L 1.08 - 1.30 mmol/L [facility] Calcium.ionized adjusted to pH 7.4 (BldA) [Moles/Vol] 1.15 mmol/L 1.08 - 1.30 mmol/L [facility] Carboxyhemoglobin (BldA) [Mass fraction] 1.2 % 0.0 - 2.0 % [facility] CO2 (Bld) [Partial pressure] 26 mm Hg Low 36 - 46 mm Hg [facility] CO2 adjusted to patient's actual temperature (Bld) [Partial pressure] 26 mmHg Low 36 - 46 mmHg [facility] Glucose [Mass/Vol] 130 mg/dL High 60 - 105 mg/dL [facility] HCO3 (Bld) [Moles/Vol] 18 mmol/L Low 22 - 26 mmol/L [facility] Hematocrit (Bld) [Volume fraction] 38.4 % Low 39.0 - 51.0 % [facility] Hemoglobin (Bld) [Mass/Vol] 12.5 g/dL Low 13.0 - 17.0 g/dL [facility] Lactate [Moles/Vol] 1.0 mmol/L 0.5 - 2. 2 mmol/L [facility] Methemoglobin (Bld) [Mass fraction] 0.6 % 0.0 - 1.5 % [facility] Oxygen (Bld) [Partial pressure] 106 mm Hg High 85 - 95 mm Hg [facility] Oxygen adjusted to patient's actual temperature (Bld) [Partial pressure] 106 mmHg High 85 - 95 mmHg [facility] Oxyhemoglobin (BldA) [Mass fraction] 97 % 95 - 98 % [facility] Patient Position Supine [facility] pH (Bld) 7.46 [pH] High 7.35 - 7.45 [facility] pH adjusted to patient's actual temperature (Bld) 7.46 High 7.35 - 7.45 [facility] Potassium [Moles/Vol] 3.6 mmol/L 3.5 - 5.0 mmol/L [facility] Sodium [Moles/Vol] 139 mmol/L 136 - 144 mmol/L [facility] Base deficit (BldA) [Moles/Vol] -3 mmol/L Low -2 - 0 mmol/L [facility] Calcium.ionized (Bld) [Mass/Vol] 1.17 mmol/L 1.08 - 1.30 mmol/L [facility] Calcium.ionized adjusted to pH 7.4 (BldA) [Moles/Vol] 1.17 mmol/L 1.08 - 1.30 mmol/L [facility] Carboxyhemoglobin (BldA) [Mass fraction] 1.1 % 0.0 - 2.0 % [facility] CO2 (Bld) [Partial pressure] 34 mm Hg Low 36 - 46 mm Hg [facility] CO2 adjusted to patient's actual temperature (Bld) [Partial pressure] 34 mmHg Low 36 - 46 mmHg [facility] Glucose [Mass/Vol] 134 mg/dL High 60 - 105 mg/dL [facility] HCO3 (Bld) [Moles/Vol] 21 mmol/L Low 22 - 26 mmol/L [facility] Hematocrit (Bld) [Volume fraction] 37.9 % Low 39.0 - 51.0 % [facility] Hemoglobin (Bld) [Mass/Vol] 12.3 g/dL Low 13.0 - 17.0 g/dL [facility] Lactate [Moles/Vol] 1.0 mmol/L 0.5 - 2. 2 mmol/L [facility] Methemoglobin (Bld) [Mass fraction] 0.7 % 0.0 - 1.5 % [facility] Oxygen (Bld) [Partial pressure] 82 mm Hg Low 85 - 95 mm Hg [facility] Oxygen adjusted to patient's actual temperature (Bld) [Partial pressure] 82 mmHg Low 85 - 95 mmHg [facility] Oxyhemoglobin (BldA) [Mass fraction] 95 % 95 - 98 % [facility] Patient Position Baseline Supine [facility] pH (Bld) 7.40 [pH] 7.35 - 7.45 [facility] pH adjusted to patient's actual temperature (Bld) 7.40 7.35 - 7.45 [facility] Potassium [Moles/Vol] 3.7 mmol/L 3.5 - 5.0 mmol/L [facility] Sodium [Moles/Vol] 139 mmol/L 136 - 144 mmol/L [facility] CK CREATINE KINASEon 023 CK [Catalytic activity/Vol] 78 U/L 51 - 298 U/L [facility] CK [Catalytic activity/Vol] 65 U/L 51 - 298 U/L [facility] Gas and Carbon monoxide pane l (BldV)on 04-27-2023 Base Deficit, Venous -7 mmol/L Low -2 - 0 mmol/L [facility] Calcium.ionized (Bld) [Mass/Vol] 1.21 mmol/L 1.08 - 1.30 mmol/L [facility] Calcium.ionized adjusted to pH 7.4 (BldA) [Moles/Vol] 1.14 mmol/L 1.08 - 1.30 mmol/L [facility] Carboxyhemoglobin (BldV) [Mass fraction] 0.8 % 0.0 - 2.0 % [facility] CO2 (BldV) [Partial pressure] 40 mm[Hg] Low 42 - 55 mmHg [facility] CO2 adjusted to patient's actual temperature (BldV) [Partial pressure] 40 mmHg Low 42 - 55 mmHg [facility] Glucose [Mass/Vol] 133 mg/dL High 60 - 105 mg/dL [facility] HCO3 (Bld) [Moles/Vol] 19 mmol/L Low 24 - 28 mmol/L [facility] Hematocrit (Bld) [Volume fraction] 41.6 % 39.0 - 51.0 % [facility] Hemoglobin (Bld) [Mass/Vol] 13.5 g/dL 13.0 - 17.0 g/dL [facility] Lactate [Moles/Vol] 4.5 mmol/L High 0.5 - 2. 2 mmol/L [facility] Methemoglobin (Bld) [Mass fraction] 0.7 % 0.0 - 1.5 % [facility] Oxygen (BldV) [Partial pressure] 43 mm[Hg] 35 - 45 mmHg [facility] Oxygen adjusted to patient's actual temperature (BldV) [Partial pressure] 43 mmHg 35 - 45 mmHg [facility] Oxygen saturation in Venous blood 69 % 60 - 85 % [facility] Oxyhemoglobin (BldV) [Mass fraction] 68 % 60 - 85 % [facility] Patient Position 3 min. Recovery [facility] pH (BldV) 7.29 [pH] Low 7.32 - 7.42 [facility] pH adjusted to patient's actual temperature (BldV) 7.29 Low 7.32 - 7.42 [facility] Potassium [Moles/Vol] 3.9 mmol/L 3.5 - 5.0 mmol/L [facility] Sodium [Moles/Vol] 142 mmol/L 136 - 144 mmol/L [facility] Base Deficit, Venous -7 mmol/L Low -2 - 0 mmol/L [facility] Calcium.ionized (Bld) [Mass/Vol] 1.27 mmol/L 1.08 - 1.30 mmol/L [facility] Calcium.ionized adjusted to pH 7.4 (BldA) [Moles/Vol] 1.17 mmol/L 1.08 - 1.30 mmol/L [facility] Carboxyhemoglobin (BldV) [Mass fraction] 0.3 % 0.0 - 2.0 % [facility] CO2 (BldV) [Partial pressure] 48 mm[Hg] 42 - 55 mmHg [facility] CO2 adjusted to patient's actual temperature (BldV) [Partial pressure] 48 mmHg 42 - 55 mmHg [facility] Glucose [Mass/Vol] 135 mg/dL High 60 - 105 mg/dL [facility] HCO3 (Bld) [Moles/Vol] 20 mmol/L Low 24 - 28 mmol/L [facility] Hematocrit (Bld) [Volume fraction] 42.5 % 39.0 - 51.0 % [facility] Hemoglobin (Bld) [Mass/Vol] 13.9 g/dL 13.0 - 17.0 g/dL [facility] Lactate [Moles/Vol] 4.5 mmol/L High 0.5 - 2. 2 mmol/L [facility] Methemoglobin (Bld) [Mass fraction] 1.1 % 0.0 - 1.5 % [facility] Oxygen (BldV) [Partial pressure] 38 mm[Hg] 35 - 45 mmHg [facility] Oxygen adjusted to patient's actual temperature (BldV) [Partial pressure] 38 mmHg 35 - 45 mmHg [facility] Oxygen saturation in Venous blood 61 % 60 - 85 % [facility] Oxyhemoglobin (BldV) [Mass fraction] 60 % 60 - 85 % [facility] Patient Position 1 min. Recovery [facility] pH (BldV) 7.24 [pH] Low 7.32 - 7.42 [facility] pH adjusted to patient's actual temperature (BldV) 7.24 Low 7.32 - 7.42 [facility] Potassium [Moles/Vol] 4.0 mmol/L 3.5 - 5.0 mmol/L [facility] Sodium [Moles/Vol] 146 mmol/L High 136 - 144 mmol/L [facility] Base Deficit, Venous -4 mmol/L Low -2 - 0 mmol/L [facility] Calcium.ionized (Bld) [Mass/Vol] 1.27 mmol/L 1.08 - 1.30 mmol/L [facility] Calcium.ionized adjusted to pH 7.4 (BldA) [Moles/Vol] 1.18 mmol/L 1.08 - 1.30 mmol/L [facility] Carboxyhemoglobin (BldV) [Mass fraction] 0.7 % 0.0 - 2.0 % [facility] CO2 (BldV) [Partial pressure] 54 mm[Hg] 42 - 55 mmHg [facility] CO2 adjusted to patient's actual temperature (BldV) [Partial pressure] 54 mmHg 42 - 55 mmHg [facility] Glucose [Mass/Vol] 137 mg/dL High 60 - 105 mg/dL [facility] HCO3 (Bld) [Moles/Vol] 24 mmol/L 24 - 28 mmol/L [facility] Hematocrit (Bld) [Volume fraction] 44.2 % 39.0 - 51.0 % [facility] Hemoglobin (Bld) [Mass/Vol] 14.4 g/dL 13.0 - 17.0 g/dL [facility] Lactate [Moles/Vol] 3.6 mmol/L High 0.5 - 2. 2 mmol/L [facility] Methemoglobin (Bld) [Mass fraction] 1.1 % 0.0 - 1.5 % [facility] Oxygen (BldV) [Partial pressure] 26 mm[Hg] Low 35 - 45 mmHg [facility] Oxygen adjusted to patient's actual temperature (BldV) [Partial pressure] 26 mmHg Low 35 - 45 mmHg [facility] Oxygen saturation in Venous blood 34 % Low 60 - 85 % [facility] Oxyhemoglobin (BldV) [Mass fraction] 33 % Low 60 - 85 % [facility] Patient Position 100W MAX [facility] pH (BldV) 7.26 [pH] Low 7.32 - 7.42 [facility] pH adjusted to patient's actual temperature (BldV) 7.26 Low 7.32 - 7.42 [facility] Potassium [Moles/Vol] 4.8 mmol/L 3.5 - 5.0 mmol/L [facility] Sodium [Moles/Vol] 144 mmol/L 136 - 144 mmol/L [facility] Base Deficit, Venous -4 mmol/L Low -2 - 0 mmol/L [facility] Calcium.ionized (Bld) [Mass/Vol] 1.29 mmol/L 1.08 - 1.30 mmol/L [facility] Carboxyhemoglobin (BldV) [Mass fraction] 0.3 % 0.0 - 2.0 % [facility] CO2 (BldV) [Partial pressure] 50 mm[Hg] 42 - 55 mmHg [facility] CO2 adjusted to patient's actual temperature (BldV) [Partial pressure] 50 mmHg 42 - 55 mmHg [facility] Glucose [Mass/Vol] 139 mg/dL High 60 - 105 mg/dL [facility] HCO3 (Bld) [Moles/Vol] 23 mmol/L Low 24 - 28 mmol/L [facility] Hematocrit (Bld) [Volume fraction] 42.4 % 39.0 - 51.0 % [facility] Hemoglobin (Bld) [Mass/Vol] 13.8 g/dL 13.0 - 17.0 g/dL [facility] Lactate [Moles/Vol] 2.8 mmol/L High 0.5 - 2. 2 mmol/L [facility] Methemoglobin (Bld) [Mass fraction] 1.0 % 0.0 - 1.5 % [facility] Oxygen (BldV) [Partial pressure] 28 mm[Hg] Low 35 - 45 mmHg [facility] Oxygen adjusted to patient's actual temperature (BldV) [Partial pressure] 28 mmHg Low 35 - 45 mmHg [facility] Oxygen saturation in Venous blood 41 % Low 60 - 85 % [facility] Oxyhemoglobin (BldV) [Mass fraction] 40 % Low 60 - 85 % [facility] pH (BldV) 7.28 [pH] Low 7.32 - 7.42 [facility] pH adjusted to patient's actual temperature (BldV) 7.28 Low 7.32 - 7.42 [facility] Potassium [Moles/Vol] 4.6 mmol/L 3.5 - 5.0 mmol/L [facility] Sodium [Moles/Vol] 147 mmol/L High 136 - 144 mmol/L [facility] Base Deficit, Venous -2 mmol/L -2 - 0 mmol/L [facility] [facility] Calcium.ionized (Bld) [Mass/Vol] 1.23 mmol/L 1.08 - 1.30 mmol/L [facility] Calcium.ionized adjusted to pH 7.4 (BldA) [Moles/Vol] 1.17 mmol/L 1.08 - 1.30 mmol/L [facility] Carboxyhemoglobin (BldV) [Mass fraction] 0.8 % 0.0 - 2.0 % [facility] CO2 (BldV) [Partial pressure] 47 mm[Hg] 42 - 55 mmHg [facility] CO2 adjusted to patient's actual temperature (BldV) [Partial pressure] 47 mmHg 42 - 55 mmHg [facility] Glucose [Mass/Vol] 140 mg/dL High 60 - 105 mg/dL [facility] HCO3 (Bld) [Moles/Vol] 23 mmol/L Low 24 - 28 mmol/L [facility] Hematocrit (Bld) [Volume fraction] 42.7 % 39.0 - 51.0 % [facility] Hemoglobin (Bld) [Mass/Vol] 13.9 g/dL 13.0 - 17.0 g/dL [facility] Lactate [Moles/Vol] 1.9 mmol/L 0.5 - 2. 2 mmol/L [facility] Methemoglobin (Bld) [Mass fraction] 1.3 % 0.0 - 1.5 % [facility] Oxygen (BldV) [Partial pressure] 27 mm[Hg] Low 35 - 45 mmHg [facility] Oxygen adjusted to patient's actual temperature (BldV) [Partial pressure] 27 mmHg Low 35 - 45 mmHg [facility] Oxygen saturation in Venous blood 41 % Low 60 - 85 % [facility] Oxyhemoglobin (BldV) [Mass fraction] 40 % Low 60 - 85 % [facility] Patient Position [address] [facility] pH (BldV) 7.32 [pH] 7.32 - 7.42 [facility] pH adjusted to patient's actual temperature (BldV) 7.32 7.32 - 7.42 [facility] Potassium [Moles/Vol] 4.3 mmol/L 3.5 - 5.0 mmol/L [facility] Sodium [Moles/Vol] 142 mmol/L 136 - 144 mmol/L [facility] Base Deficit, Venous -2 mmol/L -2 - 0 mmol/L [facility] Calcium.ionized (Bld) [Mass/Vol] 1.22 mmol/L 1.08 - 1.30 mmol/L [facility] Calcium.ionized adjusted to pH 7.4 (BldA) [Moles/Vol] 1.18 mmol/L 1.08 - 1.30 mmol/L [facility] Carboxyhemoglobin (BldV) [Mass fraction] 0.7 % 0.0 - 2.0 % [facility] CO2 (BldV) [Partial pressure] 45 mm[Hg] 42 - 55 mmHg [facility] CO2 adjusted to patient's actual temperature (BldV) [Partial pressure] 45 mmHg 42 - 55 mmHg [facility] Glucose [Mass/Vol] 139 mg/dL High 60 - 105 mg/dL [facility] HCO3 (Bld) [Moles/Vol] 23 mmol/L Low 24 - 28 mmol/L [facility] Hematocrit (Bld) [Volume fraction] 42.1 % 39.0 - 51.0 % [facility] Hemoglobin (Bld) [Mass/Vol] 13.7 g/dL 13.0 - 17.0 g/dL [facility] Lactate [Moles/Vol] 1.3 mmol/L 0.5 - 2. 2 mmol/L [facility] Methemoglobin (Bld) [Mass fraction] 1.0 % 0.0 - 1.5 % [facility] Oxygen (BldV) [Partial pressure] 28 mm[Hg] Low 35 - 45 mmHg [facility] Oxygen adjusted to patient's actual temperature (BldV) [Partial pressure] 28 mmHg Low 35 - 45 mmHg [facility] Oxygen saturation in Venous blood 46 % Low 60 - 85 % [facility] Oxyhemoglobin (BldV) [Mass fraction] 45 % Low 60 - 85 % [facility] Patient Position [address] [facility] pH (BldV) 7.33 [pH] 7.32 - 7.42 [facility] pH adjusted to patient's actual temperature (BldV) 7.33 7.32 - 7.42 [facility] Potassium [Moles/Vol] 4.2 mmol/L 3.5 - 5.0 mmol/L [facility] Sodium [Moles/Vol] 143 mmol/L 136 - 144 mmol/L [facility] Base Deficit, Venous -2 mmol/L -2 - 0 mmol/L [facility] Calcium.ionized (Bld) [Mass/Vol] 1.21 mmol/L 1.08 - 1.30 mmol/L [facility] Calcium.ionized adjusted to pH 7.4 (BldA) [Moles/Vol] 1.19 mmol/L 1.08 - 1.30 mmol/L [facility] Carboxyhemoglobin (BldV) [Mass fraction] 1.2 % 0.0 - 2.0 % [facility] CO2 (BldV) [Partial pressure] 41 mm[Hg] Low 42 - 55 mmHg [facility] CO2 adjusted to patient's actual temperature (BldV) [Partial pressure] 41 mmHg Low 42 - 55 mmHg [facility] Glucose [Mass/Vol] 140 mg/dL High 60 - 105 mg/dL [facility] HCO3 (Bld) [Moles/Vol] 23 mmol/L Low 24 - 28 mmol/L [facility] Hematocrit (Bld) [Volume fraction] 40.9 % 39.0 - 51.0 % [facility] Hemoglobin (Bld) [Mass/Vol] 13.3 g/dL 13.0 - 17.0 g/dL [facility] Lactate [Moles/Vol] 1.0 mmol/L 0.5 - 2. 2 mmol/L [facility] Methemoglobin (Bld) [Mass fraction] 1.0 % 0.0 - 1.5 % [facility] Oxygen (BldV) [Partial pressure] 29 mm[Hg] Low 35 - 45 mmHg [facility] Oxygen adjusted to patient's actual temperature (BldV) [Partial pressure] 29 mmHg Low 35 - 45 mmHg [facility] Oxygen saturation in Venous blood 49 % Low 60 - 85 % [facility] Oxyhemoglobin (BldV) [Mass fraction] 48 % Low 60 - 85 % [facility] Patient Position [address] [facility] pH (BldV) 7.36 [pH] 7.32 - 7.42 [facility] pH adjusted to patient's actual temperature (BldV) 7.36 7.32 - 7.42 [facility] Potassium [Moles/Vol] 4.1 mmol/L 3.5 - 5.0 mmol/L [facility] Sodium [Moles/Vol] 141 mmol/L 136 - 144 mmol/L [facility] Base Deficit, Venous -4 mmol/L Low -2 - 0 mmol/L [facility] Calcium.ionized (Bld) [Mass/Vol] 1.13 mmol/L 1.08 - 1.30 mmol/L [facility] Calcium.ionized adjusted to pH 7.4 (BldA) [Moles/Vol] 1.12 mmol/L 1.08 - 1.30 mmol/L [facility] Carboxyhemoglobin (BldV) [Mass fraction] 0.7 % 0.0 - 2.0 % [facility] CO2 (BldV) [Partial pressure] 36 mm[Hg] Low 42 - 55 mmHg [facility] CO2 adjusted to patient's actual temperature (BldV) [Partial pressure] 36 mmHg Low 42 - 55 mmHg [facility] Glucose [Mass/Vol] 140 mg/dL High 60 - 105 mg/dL [facility] HCO3 (Bld) [Moles/Vol] 20 mmol/L Low 24 - 28 mmol/L [facility] Hematocrit (Bld) [Volume fraction] 38.7 % Low 39.0 - 51.0 % [facility] Hemoglobin (Bld) [Mass/Vol] 12.6 g/dL Low 13.0 - 17.0 g/dL [facility] Lactate [Moles/Vol] 0.8 mmol/L 0.5 - 2. 2 mmol/L [facility] Methemoglobin (Bld) [Mass fraction] 0.7 % 0.0 - 1.5 % [facility] Oxygen (BldV) [Partial pressure] 39 mm[Hg] 35 - 45 mmHg [facility] Oxygen adjusted to patient's actual temperature (BldV) [Partial pressure] 39 mmHg 35 - 45 mmHg [facility] Oxygen saturation in Venous blood 70 % 60 - 85 % [facility] Oxyhemoglobin (BldV) [Mass fraction] 69 % 60 - 85 % [facility] Patient Position Sitting Baseline [facility] pH (BldV) 7.37 [pH] 7.32 - 7.42 [facility] pH adjusted to patient's actual temperature (BldV) 7.37 7.32 - 7.42 [facility] Potassium [Moles/Vol] 3.6 mmol/L 3.5 - 5.0 mmol/L [facility] Sodium [Moles/Vol] 140 mmol/L 136 - 144 mmol/L [facility] Base Deficit, Venous -2 mmol/L -2 - 0 mmol/L [facility] Calcium.ionized (Bld) [Mass/Vol] 1.21 mmol/L 1.08 - 1.30 mmol/L [facility] Calcium.ionized adjusted to pH 7.4 (BldA) [Moles/Vol] 1.19 mmol/L 1.08 - 1.30 mmol/L [facility] Carboxyhemoglobin (BldV) [Mass fraction] 1.2 % 0.0 - 2.0 % [facility] CO2 (BldV) [Partial pressure] 39 mm[Hg] Low 42 - 55 mmHg [facility] CO2 adjusted to patient's actual temperature (BldV) [Partial pressure] 39 mmHg Low 42 - 55 mmHg [facility] Glucose [Mass/Vol] 136 mg/dL High 60 - 105 mg/dL [facility] HCO3 (Bld) [Moles/Vol] 22 mmol/L Low 24 - 28 mmol/L [facility] Hematocrit (Bld) [Volume fraction] 39.1 % 39.0 - 51.0 % [facility] Hemoglobin (Bld) [Mass/Vol] 12.7 g/dL Low 13.0 - 17.0 g/dL [facility] Lactate [Moles/Vol] 0.9 mmol/L 0.5 - 2. 2 mmol/L [facility] Methemoglobin (Bld) [Mass fraction] 0.6 % 0.0 - 1.5 % [facility] Oxygen (BldV) [Partial pressure] 39 mm[Hg] 35 - 45 mmHg [facility] Oxygen adjusted to patient's actual temperature (BldV) [Partial pressure] 39 mmHg 35 - 45 mmHg [facility] Oxygen saturation in Venous blood 72 % 60 - 85 % [facility] Oxyhemoglobin (BldV) [Mass fraction] 71 % 60 - 85 % [facility] Patient Position Supine Baseline [facility] pH (BldV) 7.38 [pH] 7.32 - 7.42 [facility] pH adjusted to patient's actual temperature (BldV) 7.38 7.32 - 7.42 [facility] Potassium [Moles/Vol] 3.9 mmol/L 3.5 - 5.0 mmol/L [facility] Sodium [Moles/Vol] 140 mmol/L 136 - 144 mmol/L [facility] Laboratory - Chemistry and C hemistry - challengeon 04-27-2023 Calcium.ionized adjusted to pH 7.4 (BldA) [Moles/Vol] 1.21 mmol/L 1.08 - 1.30 mmol/L [facility] No Panel Informationon 04-27 Patient Position [address] [facility] US VASCULAR (POC) FOR OZIEL US E ONLYon 04-27-2023 [facility] XR ARTERY CATHETER (POC) FOR OZIEL USE ONLYon 04-27-2023 [facility] CBC AUTO DIFFon 12-26-2022 BASO # 0.1 103/ul Normal 0.0-0.1 [facility] Comment on above: Performed By: #### C BC #### [facility] [address] [address] [address] Ben Perdue Basophils/100 WBC (Bld) 0.6 % Normal 0.2-2.0 [facility] Comment on above: Performed By: #### C BC #### [facility] [address] [address] [address] Ben Perdue EO # 0.3 103/ul Normal 0.0-0.7 [facility] Comment on above: Performed By: #### C BC #### [facility] [address] [address] [address] Ben Perdue Eosinophils/100 WBC (Bld) 3.7 % Normal 0.9-7.0 [facility] Comment on above: Performed By: #### C BC #### [facility] [address] [address] [address] Ben Perdue Erythrocyte distribution width (RBC) [Ratio] 12.0 % Normal 11.0-15.0 [facility] Comment on above: Performed By: #### C BC #### [facility] [address] [address] [address] Ben Perdue Hematocrit (Bld) [Volume fraction] 39.2 % Critically low 42.0-54.0 [facility] Comment on above: Performed By: #### C BC #### [facility] [address] [place] [address] Dr. Ben Perdue Hemoglobin (Bld) [Mass/Vol] 13.1 g/dL Critically low 14.0-18.0 [facility] Comment on above: Performed By: #### C BC #### [facility] [address] [place] [address] Dr. Ben Perdue IG # 0.02 10e3/ul Normal 0.00-0.03 [facility] Comment on above: Performed By: #### C BC #### [facility] [address] [place] [address] Dr. Ben Perdue IG % 0.2 % Normal 0.0-0.5 [facility] Comment on above: Performed By: #### C BC #### [facility] [address] [place] [address] Dr. Ben Perdue LYMPH # 1.3 103/ul Normal 1.2-3.8 [facility] Comment on above: Performed By: #### C BC #### [facility] [address] [place] [address] Dr. Ben Perdue Lymphocytes/100 WBC (Bld) 16.1 % Critically low 20.5-60.0 [facility] Comment on above: Performed By: #### C BC #### [facility] [address] [place] [address] Dr. Ben Perdue MANUAL DIFF REQ NO Normal [facility] Comment on above: Performed By: #### C BC #### [facility] [address] [place] [address] Dr. Ben Perdue MCH (RBC) [Entitic mass] 30.8 pg Normal 25.9-34.0 [facility] Comment on above: Performed By: #### C BC #### [facility] [address] [place] [address] Dr. Ben Perdue MCHC (RBC) [Mass/Vol] 33.4 g/dL Normal 29.9-35.2 [facility] Comment on above: Performed By: #### C BC #### [facility] [address] [address] [address] Ben Perdue MCV (RBC) [Entitic vol] 92.0 fL Normal 80.0-94.0 [facility] Comment on above: Performed By: #### C BC #### [facility] [address] [address] [address] Ben Perdue MONO # 0.8 103/ul Normal 0.3-0.8 [facility] Comment on above: Performed By: #### C BC #### [facility] [address] [place] [address] Dr. Ben Perdue Monocytes/100 WBC (Bld) 9.5 % Normal 1.7-12.0 [facility] Comment on above: Performed By: #### C BC #### [facility] [address] [place] [address] Dr. Ben Perdue NEUT # 5.6 103/ul Normal 1.4-6.5 [facility] Comment on above: Performed By: #### C BC #### [facility] [address] [place] [address] Dr. Ben Perude Neutrophils/100 WBC (Bld) 69.9 % Normal 43.0-75.0 [facility] Comment on above: Performed By: #### C BC #### [facility] [address] [place] [address] Dr. Ben Perdue Platelet mean volume (Bld) [Entitic vol] 9.7 fL Normal 9.5-13.5 [facility] Comment on above: Performed By: #### C BC #### [facility] [address] [place] [address] Dr. Ben Perdue PLT 240 103/ul Normal 150-450 [facility] Comment on above: Performed By: #### C BC #### [facility] [address] [place] [address] Dr. Ben Perdue RBC 4.26 106/ul Critically low 4.70-6.10 [facility] Comment on above: Performed By: #### C BC #### [facility] [address] [place], [place] [address] Dr. Ben Perdue WBC 8.1 103/ul Normal 4.0-11.0 [facility] Comment on above: Performed By: #### C #### [facility] [address] [place], [place] [address] ABD/PELVIS WO CONon [...] AZALEA SOUZA Date: 2022-12-26 18:45 Normal [facility] ER URINE PROFILEon 3 Bilirubin Ql (U) Negative Normal NEGATIVE [facility] Comment on above: Performed By: #### U MICRO, ERUR ####[facility] [address] [address]Dr. Mariloulan Perdue Clarity (U) CLEAR Normal CLEAR [facility] Comment on above: Performed By: #### U MICRO, ERUR ####[facility] [address] [address]Dr. Yilan Perdue Color (U) LT. YELLOW Normal YELLOW [facility] Comment on above: Performed By: #### U MICRO, ERUR ####[facility] [address] [address]Dr. Ben Perdue ERUAHD A micrscopic examina tion will be performed if indicated. Normal [facility] Comment on above: Performed By: #### U MICRO, ERUR ####[facility] [address] [address]Dr. Yilan Perdue Glucose Ql (U) Negative Normal NEGATIVE [facility] Comment on above: Performed By: #### U MICRO, ERUR ####[facility] [address] [address]Dr. Yilan Perdue Hemoglobin Ql (U) LARGE Abnormal NEGATIVE [facility] Comment on above: Performed By: #### U MICRO, ERUR ####[facility] [address] [address]Dr. Yilan Perdue Ketones Ql (U) Negative Normal NEGATIVE [facility] Comment on above: Performed By: #### U MICRO, ERUR ####[facility] [address] [place], [place] [address]Dr. Yilan Perdue LEUKOCYTES Negative Normal NEGATIVE [facility] Comment on above: Performed By: #### U MICRO, ERUR ####[facility] [address] [place], [place] [address]Dr. Yilan Perdue Nitrite Ql (U) Negative Normal NEGATIVE [facility] Comment on above: Performed By: #### U MICRO, ERUR ####[facility] [address] [address]Dr. Ben Perdue pH (U) 5.5 [pH] Normal 5-9 [facility] Comment on above: Performed By: #### U MICRO, ERUR ####[facility] [address] [address]Dr. Ben Perdue SPEC GRAVITY 1.020 Normal 1.005-<=1.0 25 [facility] Comment on above: Performed By: #### U MICRO, ERUR ####[facility] [address] [address]Dr. Ben Perdue UA PROTEIN Negative Normal NEGATIVE/ TRACE [facility] Comment on above: Performed By: #### U MICRO, ERUR ####[facility] [address] [place], [place] [address]Dr. Ben Perdue UR MICRO IND INDICATED Normal [facility] Comment on above: Performed By: #### U MICRO, ERUR ####[facility] [address] [place], [place] [address]Dr. Ben Perdue Urobilinogen Qn (U) 0.2 {Johanna'U}/dL Normal 0.2 - 1. 0 [facility] Comment on above: Performed By: #### U MICRO, ERUR ####[facility] [address] [place], [place] [address]Dr. Ben Perdue PROF CHEM 8 (BAS METB)on Anion gap [Moles/Vol] 14.7 mmol/L Normal [facility] Comment on above: Performed By: #### B MP ####[facility] [address] [place], [place] [address]Dr. Ben Perdue Calcium [Mass/Vol] 8.8 mg/dL Normal 8.5-10.1 [facility] Comment on above: Performed By: #### B MP ####[facility] [address] [place], [place] [address]Dr. Ben Perdue Chloride [Moles/Vol] 105 mmol/L Normal 98-107 [facility] Comment on above: Performed By: #### B MP ####[facility] [address] [address]Dr. Ben Perdue CO2 [Moles/Vol] 24.5 mmol/L Normal 21.0-32.0 [facility] Comment on above: Performed By: #### B MP ####[facility] [address] [address]Dr. Ben Perdue Creatinine [Mass/Vol] 1.27 mg/dL Normal 0.70-1.30 [facility] Comment on above: Performed By: #### B MP ####[facility] [address] [address]Dr. Mariloujayesh Iron EGFR-AF CITIZEN OF [place] >60 Normal >=60 [facility] Comment on above: Performed By: #### B MP ####[facility] [address] [address]Dr. Ben Perdue EGFR-NON AF CITIZEN OF [place] 55 mL/min/1.73m2 Critically low >=60 [facility] Comment on above: Performed By: #### B MP ####[facility] [address] [address]Dr. Mariloujayesh Iron Glucose [Mass/Vol] 141 mg/dL Critically high 74-106 [facility] Comment on above: Performed By: #### B MP ####[facility] [address] [address]Dr. Ben Perdue Potassium [Moles/Vol] 4.2 mmol/L Normal 3.5-5.1 [facility] Comment on above: Performed By: #### B MP ####[facility] [address] [address]Dr. Ben Perdue Sodium [Moles/Vol] 140 mmol/L Normal 136-145 [facility] Comment on above: Performed By: #### B MP ####[facility] [address] [address]Dr. Ben Perdue Urea nitrogen [Mass/Vol] 29.0 mg/dL Critically high 7.0-18.0 [facility] Comment on above: Performed By: #### B MP ####[facility] [address] [address]Dr. Ben Perdue Urea nitrogen/Creatinine [Mass ratio] 22.8 mg/mg Normal [facility] Comment on above: Performed By: #### B MP ####[facility] [address] [address]Dr. Ben Perdue URINE MICROSCOPIC ONLYon BACTERIA TRACE Abnormal NONE SEEN [facility] Comment on above: Performed By: #### U MICRO, ERUR ####[facility] [address] [place], [place] [address]Dr. Ben Perdue Bacteria identified Cx Nom (U) NOT INDICATED Normal [facility] Comment on above: Performed By: #### U MICRO, ERUR ####[facility] [address] [address]Dr. Ben Perdue CAST NONE SEEN Normal NONE SEEN [facility] Comment on above: Performed By: #### U MICRO, ERUR ####[facility] [address] [address]Dr. Ben Perdue Crystals LM Nom (Urine sed) NONE SEEN Normal NONE SEEN [facility] Comment on above: Performed By: #### U MICRO, ERUR ####[facility] [address] [address]Dr. Ben Perdue Epithelial cells LM Ql (Urine sed) NONE SEEN Normal NONE SEEN /RARE [facility] Comment on above: Performed By: #### U MICRO, ERUR ####[facility] [address] [place], [place] [address]Dr. Ben Perdue MUCOUS NONE SEEN Normal NONE SEEN [facility] Comment on above: Performed By: #### U MICRO, ERUR ####[facility] [address] [place], [place] [address]Dr. Ben Perdue RBC 5-10 Abnormal 0-2 [facility] Comment on above: Performed By: #### U MICRO, ERUR ####[facility] [address] [place], [place] [address]Dr. Ben Perdue WBC NONE SEEN Normal NONE SEEN [facility] Comment on above: Performed By: #### U MICRO, ERUR ####[facility] [address] [place], [place] [address]Dr. Ben Perdue HEMOGLOBINon 06-02-2022 Hemoglobin (Bld) [Mass/Vol] 13.6 g/dL Critically low 14.0-18.0 [facility] Comment on above: Performed By: #### H GB #### [facility] [address] [place], [place] [address] Dr. Ben Perdue PULMONARY FUNCTION TESTon PULMONARY [...] desaturations noted. Clinical correlation required. Normal [facility] ECHOCARDIO M/2D COMPLETEon 0 05-04-2022 ECHOCARDIO M/2D COMPLETE Patient: JACINTA ROBLES Exam Date: 05/04/2022 : 1945 Gender:M Ordering : DR. MELANIE GAYLE . Admission #: [id number] Family : DR TAB BARFIELD D.O. Order #: [id number] CLICK HERE TO VIEW EXAM ECHOCARDIOGRAM REPORT [...] M.D. on 05/06/2022 at 17:10 Normal [facility] TRANSFERRINon 04-28-2022 Transferrin [Mass/Vol] 255 mg/dL Normal 177-329 [facility] Comment on above: Performed By: #### T RANSFR ####[facility] [address] [address]Dr. Ben Perdue CBC AUTO DIFFon 04-27-2022 BASO # 0.1 103/ul Normal 0.0-0.1 [facility] Comment on above: Performed By: #### R ETIC, CBC #### [facility] [address] [address] [address] Ben Perdue Basophils/100 WBC (Bld) 0.7 % Normal 0.2-2.0 [facility] Comment on above: Performed By: #### R ETIC, CBC #### [facility] [address] [address] [address] Ben Perdue EO # 0.3 103/ul Normal 0.0-0.7 [facility] Comment on above: Performed By: #### R ETIC, CBC #### [facility] [address] [address] [address] Ben Perdue Eosinophils/100 WBC (Bld) 3.6 % Normal 0.9-7.0 [facility] Comment on above: Performed By: #### R ETIC, CBC #### [facility] [address] [address] [address] Ben Perdue Erythrocyte distribution width (RBC) [Ratio] 11.8 % Normal 11.0-15.0 [facility] Comment on above: Performed By: #### R ETIC, CBC #### [facility] [address] [address] [address] Ben Perdue Hematocrit (Bld) [Volume fraction] 39.4 % Critically low 42.0-54.0 [facility] Comment on above: Performed By: #### R ETIC, CBC #### [facility] [address] [address] [address] Ben Perdue Hemoglobin (Bld) [Mass/Vol] 12.9 g/dL Critically low 14.0-18.0 [facility] Comment on above: Performed By: #### R ETIC, CBC #### [facility] [address] [place] [address] Dr. Ben Perdue IG # 0.04 10e3/ul Critically high 0.00-0.03 [facility] Comment on above: Performed By: #### R ETIC, CBC #### [facility] [address] [place] [address] Dr. Ben Perdue IG % 0.5 % Normal 0.0-0.5 [facility] Comment on above: Performed By: #### R ETIC, CBC #### [facility] [address] [place] [address] Dr. Ben Perdue LYMPH # 1.2 103/ul Normal 1.2-3.8 [facility] Comment on above: Performed By: #### R ETIC, CBC #### [facility] [address] [place] [address] Dr. Ben Perdue Lymphocytes/100 WBC (Bld) 14.9 % Critically low 20.5-60.0 [facility] Comment on above: Performed By: #### R ETIC, CBC #### [facility] [address] [place] [address] Dr. Ben Perdue MANUAL DIFF REQ NO Normal [facility] Comment on above: Performed By: #### R ETIC, CBC #### [facility] [address] [place] [address] Dr. Ben Perdue MCH (RBC) [Entitic mass] 30.6 pg Normal 25.9-34.0 [facility] Comment on above: Performed By: #### R ETIC, CBC #### [facility] [address] [address] [address] Ben Perdue MCHC (RBC) [Mass/Vol] 32.7 g/dL Normal 29.9-35.2 [facility] Comment on above: Performed By: #### R ETIC, CBC #### [facility] [address] [place] [address] Dr. Ben Perdue MCV (RBC) [Entitic vol] 93.6 fL Normal 80.0-94.0 [facility] Comment on above: Performed By: #### R ETIC, CBC #### [facility] [address] [place] [address] Dr. Ben Perdue MONO # 0.7 103/ul Normal 0.3-0.8 [facility] Comment on above: Performed By: #### R ETIC, CBC #### [facility] [address] [place] [address] Dr. Ben Perdue Monocytes/100 WBC (Bld) 8.1 % Normal 1.7-12.0 [facility] Comment on above: Performed By: #### R ETIC, CBC #### [facility] [address] [place] [address] Dr. Ben Perdue NEUT # 5.9 103/ul Normal 1.4-6.5 [facility] Comment on above: Performed By: #### R ETIC, CBC #### [facility] [address] [place] [address] Dr. Ben Perdue Neutrophils/100 WBC (Bld) 72.2 % Normal 43.0-75.0 [facility] Comment on above: Performed By: #### R ETIC, CBC #### [facility] [address] [place] [address] Dr. Ben Perdue Platelet mean volume (Bld) [Entitic vol] 9.7 fL Normal 9.5-13.5 [facility] Comment on above: Performed By: #### R ETIC, CBC #### [facility] [address] [place] [address] Dr. Ben Perdue PLT 231 103/ul Normal 150-450 [facility] Comment on above: Performed By: #### R ETIC, CBC #### [facility] [address] [place] [address] Dr. Ben Perdue RBC 4.21 106/ul Critically low 4.70-6.10 [facility] Comment on above: Performed By: #### R ETIC, CBC #### [facility] [address] [place] [address] Dr. Ben Perdue WBC 8.1 103/ul Normal 4.0-11.0 [facility] Comment on above: Performed By: #### R ETIC, CBC #### [facility] [address] [place] [address] Dr. Ben Perdue FERRITINon 04-27-2022 Ferritin [Mass/Vol] 213.0 ng/mL Normal 26.0-388.0 [facility] Comment on above: Performed By: #### F ERR, B12FOL, FETIBC #### [facility] [address] [place] [address] Dr. Ben Perdue IRON AND TIBCon 04-27-2022 % SATURATION 34.0 % Normal [facility] Comment on above: Performed By: #### F ERR, B12FOL, FETIBC #### [facility] [address] [place] [address] Dr. Ben Perdue Iron [Mass/Vol] 101.0 ug/dL Normal 65.0-175.0 [facility] Comment on above: Performed By: #### F ERR, B12FOL, FETIBC #### [facility] [address] [place] [address] Dr. Ben Perdue TIBC DIRECT 297.0 ug/dL Normal 250.0-450.0 [facility] Comment on above: Performed By: #### F ERR, B12FOL, FETIBC #### [facility] [address] [place] [address] Dr. Ben Perdue RETICULOCYTEon 04-27-2022 RETIC 1.42 % Normal 0.60-3.10 [facility] Comment on above: Performed By: #### R ETIC, CBC #### [facility] [address] [place] [address] Dr. Ben Perdue VIT B12 AND FOLATEon 022 Cobalamin (Vitamin B12) [Mass/Vol] 479.0 pg/mL Normal 193.0-986.0 [facility] Comment on above: Performed By: #### F ERR, B12FOL, FETIBC ####[facility] [address] [place], [place] [address]SrSayda Perdue FOLATE 9.40 ng/mL Normal 8.60-58.90 [facility] Comment on above: Performed By: #### F ERR, B12FOL, FETIBC ####[facility] [address] [place], [place] [address]da Perdue CT CHEST WO CONon 03-08-2022 CT [...] ARTURO JJ Date: 2022-03-08 08:41 Normal [facility] RIGHT HEART CATH O2 SATURATI ON & CARDIAC OUTPUT [facility] Vital Signs Date Time Vital Sign Value Performing Clinician Facility 04-28-2025 14:37-0400 Body height 172.72 cm Tab Ball DO Work Phone: [facility] 04-28-2025 14:37-0400 Body mass index (BMI) [Ratio] 31.9 kg/m2 Tab Ball DO Work Phone: [facility] 04-28-2025 14:37-0400 Body weight 95.25 kg Tab Ball DO Work Phone: [facility] 04-28-2025 14:37-0400 Diastolic blood pressure 66 mm[Hg] Tab Ball DO Work Phone: [facility] 04-28-2025 14:37-0400 Heart rate 75 /min Tab Ball DO Work Phone: [facility] 04-28-2025 14:37-0400 Respiratory rate 12 /min Tab Ball DO Work Phone: [facility] 04-28-2025 14:37-0400 Systolic blood pressure 129 mm[Hg] Tab Ball DO Work Phone: [facility] 04-22-2025 14:54-0400 Body mass index (BMI) [Ratio] 32.56 kg/m2 Mary Berman MD Work Phone: [facility] 04-22-2025 14:54-0400 Body temperature 97.39 [degF] Mary Berman MD Work Phone: [facility] 04-22-2025 14:54-0400 Body weight 95.2 kg Mary Berman MD Work Phone: [facility] 04-22-2025 14:54-0400 Diastolic blood pressure 68 mm[Hg] Mary Berman MD Work Phone: [facility] 04-22-2025 14:54-0400 Heart rate 71 /min Mary Berman MD Work Phone: [facility] 04-22-2025 14:54-0400 Respiratory rate 16 /min Mary Berman MD Work Phone: [facility] 04-22-2025 14:54-0400 SaO2% (BldA) [Mass fraction] 98 % Mary Berman MD Work Phone: [facility] 04-22-2025 14:54-0400 Systolic blood pressure 123 mm[Hg] Mary Berman MD Work Phone: [facility] 04-04-2025 13:48-0400 Body mass index (BMI) [Ratio] 32.35 kg/m2 Gabe Banerjee MD Work Phone: [facility] 04-04-2025 13:48-0400 Body temperature 97.3 [degF] Gabe Banerjee MD Work Phone: [facility] 04-04-2025 13:48-0400 Body weight 94.6 kg Gabe Banerjee MD Work Phone: [facility] 04-04-2025 13:48-0400 Diastolic blood pressure 59 mm[Hg] Gabe Banerjee MD Work Phone: [facility] 04-04-2025 13:48-0400 Heart rate 67 /min Gabe Banerjee MD Work Phone: [facility] 04-04-2025 13:48-0400 Respiratory rate 16 /min Gabe Banerjee MD Work Phone: [facility] 04-04-2025 13:48-0400 SaO2% (BldA) [Mass fraction] 97 % Gabe Banerjee MD Work Phone: [facility] 04-04-2025 13:48-0400 Systolic blood pressure 120 mm[Hg] Gabe Banerjee MD Work Phone: [facility] 12-23-2024 13:57-0400 Body height 172.72 cm [facility] 12-23-2024 13:57-0400 Body mass index (BMI) [Ratio] 31.4 kg/m2 [facility] 12-23-2024 13:57-0400 Body weight 93.89 kg [facility] 12-23-2024 13:57-0400 Diastolic blood pressure 67 mm[Hg] [facility] 12-23-2024 13:57-0400 Heart rate 76 /min [facility] 12-23-2024 13:57-0400 Respiratory rate 12 /min [facility] 12-23-2024 13:57-0400 SaO2% (BldA) [Mass fraction] 97 % [facility] 12-23-2024 13:57-0400 Systolic blood pressure 121 mm[Hg] [facility] 04-23-2024 15:08-0400 Body height 172.72 cm [facility] 04-23-2024 15:08-0400 Body mass index (BMI) [Ratio] 31.4 kg/m2 [facility] 04-23-2024 15:08-0400 Body weight 93.66 kg [facility] 04-23-2024 15:08-0400 Diastolic blood pressure 71 mm[Hg] [facility] 04-23-2024 15:08-0400 Heart rate 74 /min [facility] 04-23-2024 15:08-0400 Respiratory rate 20 /min [facility] 04-23-2024 15:08-0400 Systolic blood pressure 144 mm[Hg] [facility] 03-29-2024 14:19-0400 Body mass index (BMI) [Ratio] 32.01 kg/m2 Gabe Banerjee MD Work Phone: [facility] 03-29-2024 14:19-0400 Body temperature 98.49 [degF] Gabe Banerjee MD Work Phone: [facility] 03-29-2024 14:19-0400 Body weight 93.6 kg Gabe Banerjee MD Work Phone: [facility] 03-29-2024 14:19-0400 Diastolic blood pressure 69 mm[Hg] Gabe Banerjee MD Work Phone: [facility] 03-29-2024 14:19-0400 Heart rate 72 /min Gabe Banerjee MD Work Phone: [facility] 03-29-2024 14:19-0400 Respiratory rate 18 /min Gabe Banerjee MD Work Phone: [facility] 03-29-2024 14:19-0400 SaO2% (BldA) [Mass fraction] 97 % Gabe Banerjee MD Work Phone: [facility] 03-29-2024 14:19-0400 Systolic blood pressure 121 mm[Hg] Gabe Banerjee MD Work Phone: [facility] 12-22-2023 14:21-0400 Body height 172.72 cm [facility] 12-22-2023 14:21-0400 Body mass index (BMI) [Ratio] 31.8 kg/m2 [facility] 12-22-2023 14:21-0400 Body weight 94.85 kg [facility] 12-22-2023 14:21-0400 Diastolic blood pressure 71 mm[Hg] [facility] 12-22-2023 14:21-0400 Heart rate 71 /min [facility] 12-22-2023 14:21-0400 Respiratory rate 20 /min [facility] 12-22-2023 14:21-0400 Systolic blood pressure 125 mm[Hg] [facility] 09-12-2023 15:00-0500 Body height 172.72 cm Tab Ball Other [facility] [employer] Other 09-12-2023 15:00-0500 Body mass index (BMI) [Ratio] 31.74 kg/m2 Tab Ball Other [facility] [employer] Other 09-12-2023 15:00-0500 Body weight 94.71 kg Tab Ball Other [employer] [facility] [employer] Other 09-12-2023 15:00-0500 Diastolic blood pressure 72 mm[Hg] Tab Ball Other [facility] [employer] Other 09-12-2023 15:00-0500 Respiratory rate 20 /min Tab Ball Other [facility] [employer] Other 09-12-2023 15:00-0500 Systolic blood pressure 119 mm[Hg] Tab Ball Other [facility] [employer] Other 06-22-2023 12:10-0500 Diastolic blood pressure 62 mm[Hg] DO Tab Ball Work Phone: [facility] 06-22-2023 12:10-0500 Heart rate 60 /min DO Tab Ball Work Phone: [facility] 06-22-2023 12:10-0500 Respiratory rate 16 /min DO Tab Ball Work Phone: [facility] 06-22-2023 12:10-0500 SaO2% (BldA) [Mass fraction] 98 % DO Tab Ball Work Phone: [facility] 06-22-2023 12:10-0500 Systolic blood pressure 121 mm[Hg] DO Tab Ball Work Phone: [facility] 06-22-2023 10:35-0500 Body height 172.72 cm DO Tab Ball Work Phone: [facility] 06-22-2023 10:35-0500 Body weight 95.25 kg DO Tab Ball Work Phone: [facility] 06-20-2023 11:15-0500 Body height 172.72 cm Tab Ball Other [facility] [employer] Other 06-20-2023 11:15-0500 Body mass index (BMI) [Ratio] 31.87 kg/m2 Tab Ball Other [facility] [employer] Other 06-20-2023 11:15-0500 Body weight 95.07 kg Tab Ball Other [facility] [employer] Other 11-07-2023 11:15-0500 Diastolic blood pressure 75 mm[Hg] Tab Ball Other [employer] Other 06-20-2023 11:15-0500 Respiratory rate 20 /min Tab Ball Other [employer] Other 06-20-2023 11:15-0500 Systolic blood pressure 128 mm[Hg] Tab Ball Other [employer] Other 05-02-2023 14:00-0400 Body height 172.72 cm Tab Ball Other [employer] Other 05-02-2023 14:00-0400 Body mass index (BMI) [Ratio] 32.26 kg/m2 Tab Ball Other [employer] Other 05-02-2023 14:00-0400 Body weight 96.25 kg Tab Ball Other [employer] Other 05-02-2023 14:00-0400 Diastolic blood pressure 61 mm[Hg] Tab Ball Other [employer] Other 05-02-2023 14:00-0400 Respiratory rate 20 /min Tab Ball Other [employer] Other 05-02-2023 14:00-0400 SaO2% (BldA) [Mass fraction] 98 % Tab Ball Other [employer] Other 05-02-2023 14:00-0400 Systolic blood pressure 119 mm[Hg] Tab Ball Other [employer] Other 04-27-2023 14:37-0400 SaO2% (BldA) [Mass fraction] 98 % Pulm Work Phone: [facility] 04-27-2023 14:36-0400 SaO2% (BldA) [Mass fraction] 99 % Pulm Rm Work Phone: [facility] 04-27-2023 14:34-0400 SaO2% (BldA) [Mass fraction] 93 % Pulm Rm Work Phone: [facility] 04-27-2023 14:32-0400 SaO2% (BldA) [Mass fraction] 94 % Pulm Rm Work Phone: [facility] 04-27-2023 14:32-0400 SaO2% (BldA) [Mass fraction] 97 % Pulm Rm Work Phone: [facility] 04-27-2023 14:29-0400 SaO2% (BldA) [Mass fraction] 95 % Pulm Rm Work Phone: [facility] 04-27-2023 14:28-0400 SaO2% (BldA) [Mass fraction] 96 % Pulm Rm Work Phone: [facility] 04-27-2023 14:21-0400 SaO2% (BldA) [Mass fraction] 98 % Pulm Rm Work Phone: [facility] 04-27-2023 14:20-0400 SaO2% (BldA) [Mass fraction] 95 % Pulm Rm Work Phone: [facility] 04-27-2023 14:08-0400 SaO2% (BldA) [Mass fraction] 99 % Pulm Rm Work Phone: [facility] 04-27-2023 14:06-0400 SaO2% (BldA) [Mass fraction] 97 % Pulm Rm Work Phone: [facility] 12-20-2022 15:30-0400 Body height 172.72 cm Tab Ball Other [employer] Other 12-20-2022 15:30-0400 Body mass index (BMI) [Ratio] 32.41 kg/m2 Tab Ball Other [employer] Other 12-20-2022 15:30-0400 Body weight 96.71 kg Tab Ball Other [employer] Other 12-20-2022 15:30-0400 Diastolic blood pressure 65 mm[Hg] Tab Ball Other [employer] Other 12-20-2022 15:30-0400 Respiratory rate 20 /min Tab Ball Other [employer] Other 12-20-2022 15:30-0400 SaO2% (BldA) [Mass fraction] 97 % Tab Ball Other [employer] Other 12-20-2022 15:30-0400 Systolic blood pressure 111 mm[Hg] Tab Ball Other [employer] Other 12-20-2022 14:30-0400 Body height 172.72 cm Tab Ball Other [employer] Other 12-20-2022 14:30-0400 Body mass index (BMI) [Ratio] 32.41 kg/m2 Tab Ball Other [employer] Other 12-20-2022 14:30-0400 Body weight 96.71 kg Tab Ball Other [employer] Other 12-20-2022 14:30-0400 Diastolic blood pressure 65 mm[Hg] Tab Ball Other [employer] Other 12-20-2022 14:30-0400 Respiratory rate 20 /min Tab Ball Other [employer] Other 12-20-2022 14:30-0400 SaO2% (BldA) [Mass fraction] 97 % Tab Barfield Other [employer] Other 12-20-2022 14:30-0400 Systolic blood pressure 111 mm[Hg] Tab Barfield Other [employer] Other 03-24-2022 15:31-0400 Body height 175.3 cm Gabe Banerjee MD Work Phone: [facility] 03-24-2022 15:31-0400 Body temperature 97.39 [degF] Gabe Banerjee MD Work Phone: [facility] 03-24-2022 15:31-0400 Body weight 92.53 kg Gabe Banerjee MD Work Phone: [facility] 03-24-2022 15:31-0400 Diastolic blood pressure 56 mm[Hg] Gabe Banerjee MD Work Phone: [facility] 03-24-2022 15:31-0400 Heart rate 67 /min Gabe Banerjee MD Work Phone: [facility] 03-24-2022 15:31-0400 Respiratory rate 16 /min Gabe Banerjee MD Work Phone: [facility] 03-24-2022 15:31-0400 SaO2% (BldA) [Mass fraction] 97 % Gabe Banerjee MD Work Phone: [facility] 03-24-2022 15:31-0400 Systolic blood pressure 129 mm[Hg] Gabe Banerjee MD Work Phone: [facility] Encounters Encounter Date Encounter Type Care Provider Facility Start: 04-28-2025 End: 04-28-2025 ambulatory Tab Barfield DO Work Phone: [facility] Work Phone: Start: 04-28-2025 End: 04-28-2025 Patient encounter procedure Tab Barfield DO -[facility] Work Phone: Start: 04-22-2025 End: 04-22-2025 ambulatory TAB BARFIELD Facility:[facility] Start: 04-22-2025 End: 04-22-2025 Patient encounter procedure Mary Berman MD Work Phone: PULMONARY Comment on above: Chronic obstructive pulmonary disease, unspecified COPD type (HCC) (Primary Dx); Mucopurulent chronic bronchitis (HCC); Dyspnea on exertion; Multiple lung nodules; History of lung cancer; THEODORE (obstructive sleep apnea) Start: 04-15-2025 End: 04-15-2025 ambulatory Tab Barfield DO Work Phone: [facility] Work Phone: Start: 04-15-2025 End: 04-15-2025 Patient encounter procedure Tab Barfield DO -[facility] Work Phone: Start: 04-10-2025 End: 04-10-2025 Transcribe Orders Tab Barfield DO Work Phone: Referring Physician Comment on above: Superior pulmonary s ulcus syndrome, right (HCC) (Primary Dx); Mucopurulent chronic bronchitis (HCC); THEODORE (obstructive sleep apnea) Start: 04-04-2025 End: 04-04-2025 Patient encounter procedure Gabe Banerjee MD Work Phone: Radiation Oncology Comment on above: Malignant neoplasm o f prostate (HCC) (Primary Dx) Start: 04-04-2025 End: 04-04-2025 ambulatory GABE BANERJEE Facility:[facility] Start: 03-28-2025 [facility]: Start: 03-28-2025 End: 03-28-2025 ambulatory TAB BARFIELD Facility:[facility] Start: 03-25-2025 End: 03-25-2025 Office outpatient new 30 minutes Vivek Dhillon MD Work Phone: [facility] Comment on above: Prurigo nodularis (P rimary Dx); Inflamed seborrheic keratosis Start: 03-25-2025 End: 03-25-2025 ambulatory VIVEK DHILLON Not Available Start: 03-25-2025 End: 03-25-2025 Cande Dhillon MD Work Phone: [facility] Start: 03-25-2025 End: 03-25-2025 Cande Dhillon MD Work Phone: [facility] Start: 12-23-2024 End: 12-23-2024 ambulatory [facility] Work Phone: Start: 12-23-2024 End: 12-23-2024 Patient encounter procedure [facility] Physician [facility] Work Phone: Start: 04-23-2024 End: 04-23-2024 ambulatory [facility] Work Phone: Start: 04-23-2024 End: 04-23-2024 Patient encounter procedure [facility] Physician [facility] Work Phone: Start: 03-29-2024 End: 04-01-2024 Patient encounter procedure Gabe Banerjee MD Work Phone: Radiation Oncology Comment on above: Malignant neoplasm o f prostate (HCC) (Primary Dx) Start: 03-20-2024 Non-patient / Non-visit [facility] Physician [facility] [employer] Work Phone: Start: 12-22-2023 End: 12-22-2023 ambulatory [facility] Work Phone: Start: 12-22-2023 End: 12-22-2023 Patient encounter procedure [facility] Physician [facility] Work Phone: Start: 09-12-2023 End: 09-12-2023 ambulatory Tab Barfield Other [employer] Other Start: 09-12-2023 Office outpatient vi sit 15 minutes Tab Barfield [facility] Start: 07-13-2023 End: 07-13-2023 ambulatory Tab Barfield Other [employer] Other Start: 07-13-2023 Telephone encounter Tab Ball [facility] Start: 06-28-2023 End: 06-28-2023 ambulatory Tab Ball Other [employer] Other Start: 06-28-2023 Telephone encounter Tab Ball FP [facility] [employer] Start: 06-26-2023 End: 06-26-2023 ambulatory Tab Ball Other [employer] Other Start: 06-26-2023 Telephone encounter Tab Ball [facility] Start: 06-22-2023 Telephone encounter Tab Ball FP [facility] Start: 06-22-2023 End: 06-22-2023 ambulatory Jamar Wray Facility:[facility] Start: 06-22-2023 End: 06-22-2023 Admission to same day surgery center DO Tab Ball Work Phone: [facility] Work Phone: Start: 06-22-2023 End: 06-22-2023 ambulatory DO Tab Ball Work Phone: [facility] Work Phone: Start: 06-20-2023 End: 06-20-2023 ambulatory Tab Ball Other [employer] Other Start: 06-20-2023 Office outpatient vi sit 15 minutes Tab Ball [facility] Start: 06-20-2023 Telephone encounter Tab Ball [facility] Start: 05-29-2023 End: 05-29-2023 ambulatory Tab Ball Other [employer] Other Start: 05-29-2023 Telephone encounter Tab Ball [facility] Start: 05-22-2023 End: 05-22-2023 ambulatory Tab Ball Other [employer] Other Start: 05-22-2023 Telephone encounter Tab Ball [facility] Start: 05-18-2023 End: 05-18-2023 ambulatory Tab Barfield Other [employer] Other Start: 05-18-2023 Telephone encounter [facility] Start: 05-09-2023 End: 05-09-2023 ambulatory Tab Barfield Other [employer] Other Start: 05-09-2023 Telephone encounter [facility] Start: 05-02-2023 End: 05-02-2023 ambulatory Tab Barfield Other [employer] Other Start: 05-02-2023 Office outpatient vi sit 25 minutes Tab [facility] Start: 04-27-2023 End: 04-27-2023 ambulatory Juan Jose Flores MD Work Phone: Pulmonary Medicine Start: 04-27-2023 Chart abstracting Adela ([facility]) Jaiden Work Phone: Pulmonary Medicine Start: 04-27-2023 End: 05-04-2023 Patient encounter procedure Juan Jose Flores MD Work Phone: [facility] Comment on above: PAH (pulmonary arter y hypertension) (HCC) (Primary Dx); Exercise intolerance Start: 04-27-2023 Telephone encounter [facility] Start: 04-18-2023 Telephone encounter Jayden Cervantes MA [facility] Comment on above: Appointment Confirma tion Start: 03-24-2023 End: 03-24-2023 ambulatory Tab Barfield Other [employer] Other Start: 03-24-2023 Telephone encounter [facility] Start: 03-21-2023 End: 03-21-2023 ambulatory Tab Barfield Other [employer] Other Start: 03-21-2023 Telephone encounter [facility] Start: 02-06-2023 End: 02-06-2023 ambulatory Tab Barfield Other [employer] Other Start: 02-06-2023 Telephone encounter [facility] Start: 01-19-2023 Chart abstracting Kaitlin Murcia APRN.[employer] Work Phone: Pulmonary Medicine Comment on above: Opened In Error Start: 01-10-2023 End: 01-10-2023 ambulatory Tab Barfield Other [employer] Other Start: 01-10-2023 Telephone encounter [facility] Start: 12-27-2022 End: 12-27-2022 ambulatory Tab Barfield Other [employer] Other Start: 12-27-2022 Telephone encounter [facility] Start: 12-26-2022 End: 12-26-[address] TAB BARFIELD Facility:[facility] Start: 12-23-2022 Telephone encounter No One (Historic al) Referring Physician Comment on above: External Referrals/r esources Start: 12-20-2022 End: 12-20-2022 ambulatory Tab Barfield Other [employer] Other Start: 12-20-2022 Patient encounter procedure [facility] Start: 06-15-2022 End: 06-16-2022 ambulatory MELANIE SAMSA . Facility:[facility] Start: 06-02-2022 End: 06-03-2022 ambulatory MELANIE SAMSA . Facility:[facility] Start: 05-27-2022 End: 05-28-2022 ambulatory MELANIE SAMSA . Facility:[facility] Start: 05-04-2022 End: 05-05-2022 ambulatory MELANIE SAMSA . Facility:[facility] Start: 04-27-2022 End: 04-28-2022 ambulatory MELANIE SAMSA . Facility:[facility] Start: 04-05-2022 Adult health examination Yo Barfield Other [employer] Other Start: 03-24-2022 End: 03-24-2022 Patient encounter [...] PM EDT Office Visit Radiation Oncology [address] [place] [address] Gabe Banerjee MD [address] [place] [address] 2 yr rv Radiation Oncology Comment on above: 2 yr rv Start: 04-04-2026 End: 07-04-2026 Prostate specific Ag [Mass/volume] in Serum or Plasma PROSTATE-SPECIFIC ANTIGEN DIAGNOSTIC Lab Routine Malignant neoplasm of prostate (HCC) Expected: 04/04/2026, Expires: 07/04/2026 [facility] Work Phone: Comment on above: Expected: 04/04/2026 , Expires: 07/04/2026 Start: 04-03-2026 End: 04-03-2026 Patient encounter procedure 04/03/2026 3:00 PM EDT Office Visit [facility] [address] [place] [address] PSA Lab [facility] Comment on above: PSA Lab Start: 03-03-2026 DIABETES SCREEN DIABETES SCREEN [facility] Start: 03-03-2026 [facility] Start: 08-01-2025 End: 08-01-2025 Patient encounter procedure 08/01/2025 2:15 PM EST Office Visit PULMONARY [address] [place] [address] [place] [address] [place], [place] [id number] 3 month follow up PULMONARY Comment on above: 3 month follow up Start: 08-01-2025 End: 08-01-2025 ambulatory PULMONARY Comment on above: Dx: Dyspnea on exert ion [R06.09] SPIROMETRY WITH DILA TOR IF OBSTRUCTED [[id number]] Start: 07-24-2025 End: 07-24-2025 Patient encounter procedure 07/24/2025 2:15 PM EST Appointment Radiology Pet CT [address] [place] [address] CT CHEST WO IV Radiology Pet CT Comment on above: CT CHEST WO IV Start: 06-14-2025 End: 05-22-2026 CT Chest WO contrast CT CHEST WO IVCON Radiology Routine Multiple lung nodules History of lung cancer Expected: 06/14/2025, Expires: 05/22/2026 [facility] Comment on above: Expected: 06/14/2025 , Expires: 05/22/2026 Start: 04-14-2025 Influenza vaccination Influenza Vacc ine (#1) [facility] Start: 04-04-2025 End: 04-04-2025 Patient encounter procedure 04/04/2025 2:00 PM EDT Office Visit Radiation Oncology [address] [place] [address] Gabe Banerjee MD [address] [place] [address] [place] [address] 2 yr rv Radiation Oncology Comment on above: 2 yr rv Start: 03-29-2025 End: 06-28-2025 Prostate specific Ag [Mass/volume] in Serum or Plasma PROSTATE-SPECIFIC ANTIGEN DIAGNOSTIC Lab Routine Malignant neoplasm of prostate (HCC) Expected: 03/29/2025, Expires: 06/28/2025 [facility] Work Phone: Comment on above: Expected: 03/29/2025 , Expires: 06/28/2025 Start: 03-28-2025 End: 03-28-2025 Patient encounter procedure 03/28/2025 1:00 PM EDT Office Visit [facility] [address] [place] [address] [place] [address] lab [facility] Comment on above: lab Start: 03-25-2025 End: 03-25-2025 Patient encounter procedure 03/25/2025 3:05 PM EDT [facility] [address] [place] [id number] Vivek Dhillon MD [address] [place] [address] [facility]rived [facility] Comment on above: Arrived Start: 08-14-2024 Advance Directive Discussion Advance Directive Discussion [facility] Start: 04-14-2024 Influenza vaccination Influenza Vacc ine (#1) [facility] Start: 02-17-2024 DIABETES SCREEN DIABETES SCREEN [facility] Start: 10-29-2023 Covid-19 Vaccine () Covid-19 Vaccine () [facility] Start: 08-14-2023 Advance Directive Discussion Advance Directive Discussion [facility] Start: 06-22-2023 [facility] Start: 04-14-2023 Influenza vaccination C [facility] Start: 03-24-2023 End: 05-24-2023 Prostate specific Ag [Mass/volume] in Serum or Plasma PSA/PROSTSPECAG DIAG Lab Routine Prostate cancer (HCC) Expected: 03/24/2023, Expires: 05/24/2023 [facility] Work Phone: Comment on above: Expected: 03/24/2023 , Expires: 05/24/2023 Start: 01-16-2023 ambulatory Ambulatory Facility:H 1 Start: 11-02-2022 COVID-19 VACCINE (6 - Pfizer series) COVID-19 VACCINE (6 - Pfizer series) [facility] Start: 08-14-2022 ADVANCE DIRECTIVE DISCUSSION ADVANCE DIRECTIVE DISCUSSION [facility] Start: 08-14-2022 DEPRESSION ASSESSMENT DEPRESSION ASS ESSMENT [facility] Start: 05-04-2022 COVID-19 VACCINE (5 - Booster for Pfizer series) COVID-19 VACCINE (5 - Booster for Pfizer series) [facility] Start: 04-14-2022 Influenza vaccination INFLUENZA (#1) [facility] Start: 03-25-2022 Adult depression screening assessment DEPRESSION SCREENING [facility] Start: 08-14-2021 ADVANCE DIRECTIVE DISCUSSION ADVANCE DIRECTIVE DISCUSSION [facility] Start: 06-05-2014 Urine microalbumin profile DTaP,Tdap,Td Vaccine (1 - Tdap) [facility] Start: 2011 PNEUMOCOCCAL: 65+ (1 - PCV) PNEUMOCOCCAL: 65+ (1 - PCV) [facility] Start: 09-14-2011 Medicare Annual Well ness Visit Medicare Annual Wellness Visit [facility] Start: 1996 SHINGRIX VACCINE (1 of 2) CARRIZALES GRIX VACCINE (1 of 2) [facility] Start: 1991 COLOGUARD (FIT-DNA) COLOGUARD (FIT-D NA) [facility] Start: 1991 Colonoscopy COLONOSCOPY [facility] Start: 1991 COLORECTAL CANCER SCREENING COLORECTAL CANCER SCREENING [facility] Start: [address] COLONOGRAPHY [facility] Start: 1991 FECAL OCCULT BLOOD FECAL OCCULT BLOO D [facility] Start: 1991 SIGMOIDOSCOPY SIGMOIDOSCOPY [facility] Start: 1981 LIPID SCREEN LIPID SCREEN [facility] Start: 1965 Urine microalbumin profile [facility] Start: 1964 Anxiety Screening Anxiety Screening [facility] Start: 1964 Depression Screening Depression Scre ening [facility] Start: 1964 HEPATITIS C SCREENING HEPATITIS [facility] Start: 1964 Hepatitis C screening Hepatitis C [facility] Comprehensive metabo lic 2000 panel - Serum or Plasma [facility] End: 04-22-2026 Echocardiography ECHO Cardiology Routine Dyspnea on exertion 1 Occurrences starting 04/22/2025 until 04/22/2026 [facility] Work Phone: Comment on above: 1 Occurrences starti ng 04/22/2025 until 04/22/2026 End: 05-22-2026 OXIMETRY WITH AMBULATION OXIMETRY WITH AMBULATION PFT Routine Chronic obstructive pulmonary disease, unspecified COPD type (HCC) Dyspnea on exertion 1 Occurrences starting 04/22/2025 until 05/22/2026 [facility] Comment on above: 1 Occurrences starti ng 04/22/2025 until 05/22/2026 Patient Education Colon polyps [facility] Work Phone: Pulmonary rehabilita tion pro CONSULT PULMONARY REHABILITATION PROGRAM Procedures Routine Chronic obstructive pulmonary disease, unspecified COPD type (HCC) Ordered: 04/22/2025 [facility] Comment on above: Ordered: 04/22/2025 End: 05-22-2026 SPIROMETRY WITH DILATOR IF OBSTRUCTED SPIROMETRY WITH DILATOR IF OBSTRUCTED PFT Routine Chronic obstructive pulmonary disease, unspecified COPD type (HCC) 1 Occurrences starting 04/22/2025 until 05/22/2026 [facility] Comment on above: 1 Occurrences starti ng 04/22/2025 until 05/22/2026 [facility] Immunizations Immunization Date Immunization Notes Care Provider Fa angela 04-15-2025 influenza, high dose seasonal, preservative-free Tab Barfield DO Work Phone: [facility] 04-23-2024 influenza, high dose seasonal, preservative-free [facility] 04-23-2024 influenza virus vaccine, unspecified formulation Vivek Dhillon MD Work Phone: [facility] 05-02-2023 influenza, high dose seasonal, preservative-free Tab Barfield Other [facility] [employer] Other 05-02-2023 influenza virus vaccine, unspecified formulation [facility] 07-05-2022 COVID-19 Pfizer (bivalent) Tab Barfield Other [facility] 05-06-2022 influenza (aIIV4) vaccine, age 65+ yr, quadrivalent, PF (FLUAD QUAD) Jayden Cervantes MA [facility] 05-06-2022 influenza virus vaccine, split virus (incl. purified surface antigen) Tab Barfield Other [facility] [employer] Other 05-06-2022 influenza, high dose seasonal, preservative-free Tab Barfield Other [facility] [employer] Other 05-06-2022 influenza virus vaccine, unspecified formulation Juan Jose Flores MD Work Phone: [facility] 04-06-2022 Prevnar 20 Tab Barfield Other [facility] 03-09-2022 COVID-19 Pfizer Tab Bal l Other [facility] 05-21-2021 Do not use COVID-19 Pfizer 2 dose Tab Barfield Other [facility] 05-05-2021 influenza virus vaccine, split virus (incl. purified surface antigen) Tab Barfield Other [employer] Other 05-05-2021 influenza virus vaccine, unspecified formulation [facility] 05-05-2021 Seasonal trivalent influenza vaccine, adjuvanted, preservative free Gabe Chriss MD Work Phone: [facility] 10-07-2020 COVID-19 vaccine, ag e 12+ yr (PFIZER-BIONTECH - PURPLE TOP) Gabe Banerjee MD Work Phone: [facility] 09-17-2020 COVID-19 vaccine, ag e 12+ yr (PFIZER-BIONTECH - PURPLE TOP) Gabe Banerjee MD Work Phone: [facility] 04-27-2020 influenza virus vaccine, split virus (incl. purified surface antigen) Tab Barfield Other [facility] [employer] Other 04-27-2020 influenza virus vaccine, unspecified formulation [facility] 05-01-2019 AS03 adjuvant Gabe Banerjee MD Work Phone: [facility] 05-01-2019 Seasonal trivalent influenza vaccine, adjuvanted, preservative free Gabe Banerjee MD Work Phone: [facility] 06-16-2017 influenza virus vaccine, split virus (incl. purified surface antigen) Tab Barfield Other [facility] [employer] Other 06-16-2017 influenza virus vaccine, unspecified formulation [facility] 06-04-2014 tetanus and diphther ia toxoids, adsorbed, preservative free, for adult use (5 Lf of tetanus toxoid and 2 Lf of diphtheria toxoid) Tab Barfield Other [facility] 05-08-2013 tetanus and diphther ia toxoids, adsorbed, preservative free, for adult use (5 Lf of tetanus toxoid and 2 Lf of diphtheria toxoid) Tab Barfield Other [facility] pneumococcal Conjuga te, unspecified formulation; Translations: [Need for prophylactic vaccination against Streptococcus pneumoniae (pneumococcus)] Tab Barfield Other [facility] [employer] Other Payers Date Payer Category Payer Self-pay [id number] 2019 Private Health Insurance [id number] 2019 Unknown MMO MMO MEDICARE SUPPLEMENT [id number] 2019-Present [phone] [address] [place] [address] Indemnity [id number] 2011 Medicare [id number] 1959 Medicare [id number] 1959 Unknown [id number] 1945 Unknown [id number]. 593 1945 Unknown [id number]. 593 1945 Unknown [id number]. 593 1945 Unknown [id number]. 593 1945 Unknown [id number] [id number]. 593 1945 Unknown [id number] [id number]. 593 1945 Unknown [id number] [id number]. 593 1945 Unknown [id number]. 593 1945 Unknown [id number] 1259 Unknown [employer] [id number] Unknown [id number] 531 Social History Date Type Detail Facility Start: 03-24-2022 End: 04-04-2025 Tobacco smoking status NHIS Ex-smoker [facility] Start: 12-09-1967 End: 12-08-1997 History of tobacco use Current smoker [facility] Start: 12-09-1967 End: 12-08-1997 History of tobacco use Cigarette Smoker [facility] Start: 03-24-2022 End: 03-03-2023 Cigarettes smoked current (pack per day) - Reported 2 [facility] Start: 03-24-2022 End: 04-04-2025 Tobacco use and exposure Smokeless tobacco non-user [facility] Start: 03-24-2022 End: 04-04-2025 Alcohol intake Current drinker of alcohol (finding) [facility] Start: 1945 Sex Assigned At Not on file C [facility] Start: 03-14-2022 End: 03-24-2022 Exposure to SARS-CoV-2 (event) Not sure [facility] Start: 03-03-2023 End: 04-04-2025 Sex Assigned At [facility] Start: 11-23-2017 Adult Depression Screening Assessment 0 [facility] Start: 1945 Sex Assigned At Male F [facility] Start: 12-23-2024 Sex Male (finding) [facility] Start: 03-25-2025 Tobacco smoking status [facility] Tobacco smoking consumption unknown [facility] NEGATED: Highlighted rowStart: NINF History of tobacco use Passive smoker [facility] Medical Equipment Procedure Code Equipment Code Equipment [...] InstructionsMary Berman MD - 04/22/2025 2:45 PM Gabe Kirk MD - 04/04/2025 1:57 PM Rajendra Dhillon MD - 03/25/2025 3:05 PM EDT [...] is too high when you go to chicken picker the prescription at your pharmacy. - [...] If you would like to come to [place] or go to [place] for this, please let me know if [...] also benefit from a follow-up with a milk collector. Please discuss this with your primary care [...] your symptoms worsen. 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 I recommend staying up to date on preventive vaccinations - pneumonia vaccinations, annual influenza vaccinations, and covid boosters. He should also receive RSV vaccination. I recommend masking when in public during cold and flu season. 2) Hx of lung cancer s/p resection in [place] 3-[address] ordered today [...] Berman MD Pulmonary and Critical Care Medicine [facility] [place] Recording using [employer] software for draft documentation of the visit was discussed with the patient/authorized commissary representative; all questions welcomed and answered. Patient/authorized commissary representative agreed to proceed documented in this encounter [facility] 04-22-2025 Note HNO ID: [id number] Author: MARY BERMAN MD Service: ? 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 PMH, FAMH, SOCIAL History AND Allergies were verified and updated, and medications [...] mg tablet amLODIPine (NORVASC) 5 mg tablet mupvayxqquv-ytppwavil-qulbtndn (TRELEGY ELLIPTA) 100-62.5-25 mcg inhalation powder Inhale [...] as noted below: Labs: 09/2024 CMP normal, HANDH normal, AEC = 320 2022 AB.34/33/107 Chest [...] to Trelegy Continue albuterol prn We discussed (more content not included)... [facility] 04-04-2025 Note HNO ID: [id number] Author: GABE BANERJEE MD Service: ? Author Type: Physician Type: Progress Notes Filed: 04/29/2025 09:24 Note Text: Radiation Oncology - Follow Up Note PATIENT NAME: Jacinta Robles PATIENT DIAGNOSIS/PATIENT IDENTIFICATION: Mr. Robles is a 79-year old gentleman with Stage IIIA, [id number] adenocarcinoma of the prostate; high recurrence risk (cT1c, PSA 5.7, GS 4+4=8/10). Prostate MRI showed no evidence of seminal vesicle invasion or extracapsular extension or pelvic lymphadenopathy. He completed a course of definitive EBRT on 03/30/2018 (7920 cGy in 44 fractions) with ADT (18 months). INTERVAL HISTORY: Mrs. Robles returns to clinic today for routine follow-up approximately seven years after the completion of his radiation treatments and one year since his last visit on 03/29/2024. In the interim, he has been doing well denies any burning/discomfort urination and notes nocturia once. He notes no trouble starting stream or straining or incomplete emptying or weakening of his stream or hematuria. He does have occasional incontinence/leakage but does not require any pads. He notes regular bowel movements no diarrhea or pain [...] a 79-year old gentleman with Stage IIIA, [id number] adenocarcinoma of the prostate; high recurrence risk [...] with previous value of 0.21 ng/mL a year ago on 03/20/2024. I will plan to see [...] which included preparing to see the patient, [id number]-[id number] patient care, and counseling and educating the patient/family/caregiver. This document has been created with the use of voice recognition technology. It may contain inaccuracies, misspellings, inaccurate syntax or inappropriate word context that are a result of the inadequacies/shortcomings of said technology/software. [facility] 04-04-2025 History of Presen t illness Narrative Radiation Oncology - Follow Up Note PATIENT NAME: Jacinta Robles PATIENT DIAGNOSIS/PATIENT IDENTIFICATION: Mr. Robles is a 79-year old gentleman with Stage IIIA, [id number] adenocarcinoma of the prostate; high recurrence risk (cT1c, PSA 5.7, GS 4+4=8/10). Prostate MRI showed no evidence of seminal vesicle invasion or extracapsular extension or pelvic lymphadenopathy. He completed a course of definitive EBRT on 03/30/2018 (7920 cGy in 44 fractions) with ADT (18 months). INTERVAL HISTORY: Mrs. Robles returns to clinic today for routine follow-up approximately seven years after the completion of his radiation treatments and one year since his last visit on 03/29/2024. In the interim, Date PSA (ng/mL) 10/31/2107 [...] a 79-year old gentleman with Stage IIIA, [id number] adenocarcinoma of the prostate; high recurrence risk [...] which included preparing to see the patient, jiap-vw-jxgd patient care, and counseling and educating the patient/family/caregiver. This document has been created with the use of voice recognition technology. It may contain inaccuracies, misspellings, inaccurate syntax or inappropriate word context that are a result of the inadequacies/shortcomings of said technology/software. documented in this encounter [facility] 03-25-2025 History of Presen t illness Narrative [...] Visit: prn documented in this encounter [facility] 12-23-2024 Evaluation note Diagnosis Onset Date Resolution Chronic kidney disease acute Ma 2024 1:57pm Hypercholesterolemia acute December 23, 2024 1:57pm Hypertension acute December 23 1:57pm Major depression acute December 1:57pm Obesity acute December 23, 2024 1:57pm [place] (obstructive sleep apnea) acute December 23, 2024 1:57pm Restrictive lung disease acute December 23, 2024 1:57pm Type 2 diabetes mellitus with hyperglycemia acute December 23 1:57pm Medicare annual wellness visit, subsequent noneactive December 23, 2024 1:57pm [facility] Work Phone: [phone] 601-586908-16-2024 History of Present illness Narrative* Gabe Banerjee MD - 03/29/2024 2:16 PM EDT Radiation Oncology - Follow Up Note PATIENT NAME: Jacinta Robles PATIENT DIAGNOSIS/PATIENT IDENTIFICATION: Mr. Robles is a 78-year old gentleman with Stage IIIA, [id number] adenocarcinoma of the prostate; high recurrence risk [...] a 78-year old gentleman with Stage IIIA, [id number] adenocarcinoma of the prostate; high recurrence risk [...] which included preparing to see the patient, xagx-ju-bupb patient care, and counseling and educating the patient/family/caregiver. This document has been created with the use of voice recognition technology. It may contain inaccuracies, misspellings, inaccurate syntax or inappropriate word context that are a result of the inadequacies/shortcomings of said technology/software. documented [facility] Evaluation note* Encounter Date Diagnosis Assessment Notes [...] adequate fluid balance and to avoid dehydration. [facility]* Encounter Date Diagnosis Assessment [...] infection Also increases risk for fungal infection [facility] Other 11-07-2023 Evaluation note* Encounter Date Diagnosis Assessment Notes Treatment Notes Treatment Clinical Notes Jun, Acute diffuse otitis externa of left ear (ICD-10 - H60.312) [facility] Other 10-16-2023 Evaluation note* Encounter Date Diagnosis Assessment Notes Treatment Notes Treatment Clinical Notes May, Type 2 diabetes mellitus with hyperglycemia, without long-term current use of insulin (ICD-10 - E11.65) [facility] Other 10-09-2023 Evaluation note* Encounter Date Diagnosis Assessment Notes Treatment Notes Treatment Clinical Notes May, Rectal cancer (ICD-10 - C20) Malignant rectal polyp, completely excised 02/2021 [facility] Other 09-26-2023 Evaluation note* Encounter Date Diagnosis Assessment Notes Treatment Notes Treatment Clinical Notes Apr, Type 2 diabetes mellitus with hyperglycemia, without long-term current use of insulin (ICD-10 - E11.65) [facility] Other 09-19-2023 Evaluation note* Encounter Date Diagnosis [...] use, the patient reduces the risk for ND, CVA, HTN, cardiac dysrhythmias and sudden cardiac [...] > [address] scan [facility] Other 09-14-2023 Evaluation note* Encounter Date Diagnosis Assessment Notes Treatment Notes Treatment Clinical Notes Apr, Pulmonary hypertension (ICD-10 - I27.20) RHC: post capillary PH [facility] Other 09-14-2023 History of Present illness Narrative* [...] agents. Access site: Right internal jugular vein Eskridge Minna size: 7.5 F. Anesthesia: Lidocaine 1% [...] located in the SVC under fluoroscopy. A Eskridge-Minna catheter was advanced to the right pulmonary [...] 34 69 39 36 13 13.5 12.6 6.25366 20 7.39 94 75 1 35 48 29 41 25 13.8 13.3 9.09836 40 7.38 93 75 1.2 33 45 28 45 28 13.3 13.7 8.78196 60 7.38 93 71 1.8 35 40 27 47 35 13.7 13.9 9.34493 80 7.37 93 74 2.9 36 40 28 50 33 14.1 13.8 10.66426 100 7.35 91 69 3.6 36 33 26 54 39 14.5 14.4 11.00887 1 min recovery 7.34 95 96 4.6 [...] at 1:32 PM. CC: documented in this encounterThe [facility] System09-14-[facility]23 History of Present illness Narrative* Adela Hwang - 04/27/2023 1:29 PM EDTSummary: Research IRB#[id number] IRB #[id number] Study Title: Comparing hemodynamic response to fluid challenge and exercise in patients with pulmonary hypertension Land Sales Agent: Dr. Juan Jose Flores M.D. Metal Control Coordinator: Adela Hwang Research Consent Patient scheduled for [...] was discharged from study. Adela Hwang, Clinical Beer Still Runner Compounder April 27, 2023 documented in this encounterThe [facility] System09-05-2023 Miscellaneous Notes* Telephone Encounter - Jayden Cervantes MA - 04/18/2023 10:53 AM EDTSummary: Appointment Confirmation Called patient to confirm his iCPET with Dr. Flores on 04/27 at 1pm. NPO 4 hours pre-procedure. Anticoagulation:None at this time Must have a medical van driver for transportation post procedure. May take other medications as prescribed prior to procedure. Check in at desk G-11 at 12:30pm Jayden Cervantes Clinical Library Attendant [facility] [place] documented in this encounterThe [facility] System08-08-2023 Evaluation note* Encounter Date Diagnosis Assessment Notes Treatment Notes Treatment Clinical Notes Mar, Restless leg syndrome (ICD-10 - G25.81) [facility] Other 06-08-2023 History of Present illness Narrative* Kaitlin Murcia APRN.CNP - 01/19/2023 4:07 PM EDT Open in error documented in this encounterThe [facility]health System05-30-2023 Evaluation note* Encounter Date Diagnosis Assessment Notes Treatment Notes Treatment Clinical Notes December, Primary hypertension (ICD-10 - I10) [facility] Other 05-12-2023 Miscellaneous Notes* Telephone Encounter - Huey Wisdom - 12/23/2022 9:17 AM EDT Placed call to pt to sched new appt w/ CHF, no answer left VM with call back # to [facility] scheduling line * Telephone Encounter - Thu Judd - 12/23/2022 6:31 AM EDT Patient: Jacinta Robles Date of : 1945 Patient phone number: [phone] Referring Provider for the encounter: Dr Tab Barfield Requesting Provider: Cardiology Reason for requesting visit (RFV/signs and symptoms/diagnosis): Pulmonary Hypertension Person calling: caregiver: PHUONG Return call to: self Medical Records/Insurance Card scanned into [employer]: Yes Comments: Additional documents available through [employer]. documented in this encounterThe [facility]health System05-09-2023 Evaluation note* Encounter Date Diagnosis Assessment Notes [...] use, the patient reduces the risk for ND, CVA, HTN, cardiac dysrhythmias and sudden cardiac [...] and exercise. Reviewed age-appropriate preventive testing recommended. [facility] Other 08-11-2022 History of Present illness Narrative* Gabe Banerjee MD - 03/24/2022 11:51 PM EDT Radiation Oncology - Follow Up Note PATIENT NAME: Jacinta Robles PATIENT Signed by: Gabe Banerjee MD I spent a total of 20 minutes on the date of the service which included preparing to see the patient, zeyu-ab-sooo patient care, and counseling and educating the patient/family/caregiver. This document has been created with the use of voice recognition technology. It may contain inaccuracies, misspellings, inaccurate syntax or inappropriate word context that are a result of the inadequacies/shortcomings of said technology/software. [facility] Diagnosis Prostate cancer (HCC)- Primary Malignant neoplasm of prostate [facility] noteNo InformationN[employer] Other Evaluation note* Diagnosis Exercise intolerance- Primary Other general symptoms [facility] Diagnosis PAH (pulmonary artery hypertension) (HCC)- Primary Other chronic pulmonary heart diseases Exercise intolerance Other general symptoms [facility]No assessment information [facility] Work Phone: Evaluation note* Diagnosis Onset Date Resolution Status Hypercholesterolemia acute Hypertension acute Major depression acute [place] (obstructive sleep apnea) acute Type 2 diabetes mellitus with hyperglycemia acute Medicare annual wellness visit, subsequent noneactive [facility] Work Phone: Evaluation note* Diagnosis Malignant neoplasm of prostate (HCC)- Primary Malignant neoplasm of prostate [facility]* Diagnosis Onset Date Resolution Status Hypercholesterolemia acute Hypertension acute Major depression acute [place] (obstructive sleep apnea) acute Type 2 diabetes mellitus with hyperglycemia acute [facility] Work Phone: Evaluation note* Diagnosis 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 Inflamed seborrheic keratosis [facility] Diagnosis Superior pulmonary sulcus syndrome, right (HCC)- Primary Mucopurulent chronic bronchitis (HCC) Mucopurulent chronic bronchitis [place] (obstructive sleep apnea) Obstructive sleep apnea (adult) (pediatric) documented [facility]* Diagnosis Chronic obstructive pulmonary disease, unspecified COPD type (HCC)- Primary Mucopurulent chronic bronchitis (HCC) Mucopurulent chronic bronchitis Dyspnea on exertion Other dyspnea and respiratory abnormality Multiple lung nodules Other nonspecific abnormal finding of lung field History of lung cancer Personal history of malignant neoplasm of bronchus and lung [place] (obstructive sleep apnea) Obstructive sleep apnea (adult) (pediatric) documented [facility]* Diagnosis Onset Date Resolution Status Admit Date Chronic kidney disease acute Se ptember 2024 2:25pm Hypercholesterolemia acute Sept ember 2024 2:25pm Hypertension acute April 282024 2:25pm Major depression acute Septembe r 2024 2:25pm Obesity acute April 2:25pm [place] (obstructive sleep apnea) acute April 28, 2025 2:25pm Restrictive lung disease acute April 28, 2025 2:25pm Type 2 diabetes mellitus wit h hyperglycemia acute April 28, 2025 2:25pm [facility] Work Phone: Evaluation note* Diagnosis Malignant neoplasm of prostate (HCC)- Primary Malignant neoplasm of prostate documented in this encounter [facility] Author Jamar Wray [facility] June 22, 2023 11:35am Note Date/Time June 22, 2023 1 1:35am [facility] [address] [place] [address] Gastroenterology H&P Signed Patient: Jacinta Robles MR#: [id number] : 1945 Acct:[id number] Age/Sex: 77 / M Adm Date: 3 Loc: Room: Type: [facility] Attending Dr: Jamar Wray MD Copies to: [...] signed by Jamar Wray MD> 06/22/23 1135 [facility] Work Phone: Hisuepr general Narrative - Reported* Type Description Date [...] GHT 2020 Hospitalization History SEE SURGICAL HX [facility] Other Hisykwr general Narrative - Reported* Type Description Date [...] GHT 2020 Hospitalization History SEE SURGICAL HX [facility] Other Hiswkdn general Narrative - Reported* Type Description Date [...] [place], [place] T 2020 Surgical History [facility] 04/2023 Hospitalization History SEE SURGICAL [facility] Other History general Narrative - Reported* Type [...] UPPER [place]BE, RI GHT 2020 Surgical History [facility] 04/2023 Surgical History Colonoscopy w/ polyp ectomy, rectal AVM, repeat 3 years 06/2023 Hospitalization History SEE SURGICAL [facility] Other History general Narrative - Reported* Type [...] UPPER LOBE, RI GHT 2020 Surgical History [facility] 04/2023 Surgical History Colonoscopy w/ polyp ectomy, rectal AVM, sessile serrated polyp (repeat 3 years) 06/2023 Hospitalization History SEE SURGICAL HX [facility] Other Hospital Discharge instructions Additional Instructions DISCHARGE [...] NOT operate machinery such as power tools, lawn mowers, snow blowers, sewing machines, etc. for [...] years. -Follow up with PCP. -Office number [phone].[facility] Work Phone: Reason for referral (narrative)* Reason Referral to [facility] Pulmonary Hypertension Clinic Diagnosis 1 Pulmonary hypertensi on (I27.20) Referral Organization [facility] migdaliaaixa Referring Provider First Name Tab Referring Provider Last Name Tyrese Referring Provider Specialty Internal Me dicine Referred Provider Specialty Cardiology Referral Priority Routine [facility] Other Refvgh for referral (narrative)* Reason 03/02/23 [facility] Diagnosis 1 Pulmonary hypertensi on (I27.20) Referral Organization [facility] anupama Referring Provider First Name Tab Referring Provider Last Name Tyrese Referring Provider Specialty Internal Me dicine Referred Organization [facility] Referred Address [address] [place], [place],[address] Referred Provider Specialty Cardiology Referral Priority Routine Referral Appointment Date 2023-03-02 General Notes Marina Patel 01:15:19 PM >received today, attachments made, notes locked, referral faxed Marina Patel 12/28/2022 11:29:31 AM >fax first attempt letter Marina Patel 01/03/2023 07:57:58 AM >pt scheduled with Dr Shannon Gonzalez Clinical Notes F: [id number] / [phone] [facility] Other Re[facility]o for referral (narrative)* Reason Referral for surveil maryjo colonoscopy Diagnosis 1 Rectal cancer (C20) Referral Organization [facility] migdaliaaixa Referring Provider First Name Tab Referring Provider Last Name Tyrese Referring Provider Specialty Internal Me dicine Referred Organization [facility] Referred Provider Jamar Wray Referred Address [address] [place] [place], [place],[address] Referred Provider Specialty Gastroentero logy Referral Priority [...] He denies abdominal pain, melena or hematochezia. [facility] Other reason for referral (narrative)No reason for referral information availableFirelands [facility] Med [facility] Work Phone: Summary Purpose Family History No Family History [...] Date flu shot April 15, 2025 3:54pm Chief Complaint Admit Date flu shot April 15, 2025 3:54pm 4 month f/u April 28, 2025 2:25pm Reason for Visit Admit Date Chronic kidney disease April 28, 2 025 2:25pm Hypercholesterolemia April 28 2:25pm Hypertension April 28, 2025 2:25pm Major depression April 28, 2025 2:25pm Obesity April 28, 2025 2:25pm [place] (obstructive sleep apnea) April 28, 2025 2:25pm Restrictive lung disease April 28, 2025 2:25pm Type 2 diabetes mellitus with hyperglyce david April 28, 2025 2:25pm Additional Source Comments Source Comments (unrecognize d section and content) In the event this informatio n is protected by the Federal Confidentiality of Alcohol and Drug Abuse Patient Records regulations: The Federal rules restrict any use of the information to criminally investigate or prosecute any alcohol or drug abuse patient.[facility] SystemIn the event this information is protected by the Federal Confidentiality of Alcohol and Drug Abuse Patient Records regulations: The Federal rules restrict any use of the information to criminally investigate or prosecute any alcohol or drug abuse patient.[facility] SystemIn the event this information is protected by the Federal Confidentiality of Alcohol and Drug Abuse Patient Records regulations: The Federal rules restrict any use of the information to criminally investigate or prosecute any alcohol or drug abuse patient.[facility] SystemIn the event this information is protected by the Federal Confidentiality of Alcohol and Drug Abuse Patient Records regulations: The Federal rules restrict any use of the information to criminally investigate or prosecute any alcohol or drug abuse patient.[facility] SystemIn the event this information is protected by the Federal Confidentiality of Alcohol and Drug Abuse Patient Records regulations: The Federal rules restrict any use of the information to criminally investigate or prosecute any alcohol or drug abuse patient.[facility] SystemIn the event this information is protected by the Federal Confidentiality of Alcohol and Drug Abuse Patient Records regulations: The Federal rules restrict any use of the information to criminally investigate or prosecute any alcohol or drug abuse patient.[facility] SystemIn the event this information is protected by the Federal Confidentiality of Alcohol and Drug Abuse Patient Records regulations: The Federal rules restrict any use of the information to criminally investigate or prosecute any alcohol or drug abuse patient.[facility] SystemIn the event this information is protected by the Federal Confidentiality of Alcohol and Drug Abuse Patient Records regulations: The Federal rules restrict any use of the information to criminally investigate or prosecute any alcohol or drug abuse patient.[facility] SystemIn the event this information is protected by the Federal Confidentiality of Alcohol and Drug Abuse Patient Records regulations: The Federal rules restrict any use of the information to criminally investigate or prosecute any alcohol or drug abuse patient.[facility] SystemIn the event this information is protected by the Federal Confidentiality of Alcohol and Drug Abuse Patient Records regulations: The Federal rules restrict any use of the information to criminally investigate or prosecute any alcohol or drug abuse patient.[facility] SystemIn the event this information is protected by the Federal Confidentiality of Alcohol and Drug Abuse Patient Records regulations: The Federal rules restrict any use of the information to criminally investigate or prosecute any alcohol or drug abuse patient.[facility] Reason for Visit (unrecogniz ed section and [...] (HCC) [place] (obstructive sleep apnea) Procedures OFFICE/OUTPATIENT NEW HIGH MDM 60 MINUTES Tab Barfield, DO [address] [facility] [place] [address] Phone: tel: fax: Referral ID Status Reason Start Date Expiration Date V isits Requested Visits Authorized [id number] Closed PCP Requested Referral 04/10/2025 04/10/2026 1 [...] April 23, 2024 End: April 23, 2024 It Infrastructure Project Manager Relationship Specialty Start Date End Date Tab Barfield, DO [address] [place] [id number] PCP - General Internal Medicine 11/23/17 It Infrastructure Project Manager Relationship Specialty Start Date End Date Tab Barfield, DO [address] [place] [id number] PCP - General Internal Medicine 11/23/17 It Infrastructure Project Manager Relationship Specialty Start Date End Date Tab Barfield, DO [address] [place] [address] PCP - General Internal Medicine 11/23/17 It Infrastructure Project Manager Relationship Specialty Start Date End Date Tab Barfield DO [address] [facility] [place] [address] PCP - General Internal Medicine 11/23/17 Melanie Gayle DO [address] [place] [address] Pulmonary Disease 03/15/23 It Infrastructure Project Manager Relationship Specialty Start Date End Date Tab Barfield DO [address] [place] [address] PCP - General Internal Medicine 11/23/17 Melanie Gayle DO [address] [place] [address] Pulmonary Disease 03/15/23 It Infrastructure Project Manager Relationship Specialty Start Date End Date Tab Barfield DO [address] [facility] [place] [address] PCP - General Internal Medicine 11/23/17 Melanie Gayle DO [address] [place] [facility] [place] [address] Pulmonary Disease 03/15/23 It Infrastructure Project Manager Relationship Specialty Start Date End Date Tab Barfield DO [address] [facility] [place] [address] PCP - General Internal Medicine 11/23/17 Melanie Gayle DO [address] [place] [facility] [place] [address] Pulmonary Disease 03/15/23 Team Status: Inactive Member Role Status Dates Tab Barfield DO Primary Care Provider Active Jamar Wray MD Attending Provider Active Team Status: Inactive Member Role Status Dates Tab Barfield DO Primary Care Provide r, Attending Provider Active Start: December 22, 2023 End: December 22, 2023 It Infrastructure Project Manager Relationship Specialty Start Date End Date Tab Barfield DO [address] [place] [address] PCP - General Internal Medicine 11/23/17 Melanie Gayle DO [address] [place] [address] Pulmonary Disease 03/15/23 It Infrastructure Project Manager Relationship Specialty Start Date End Date Tab Barfield DO [address] [place] [address] PCP - General Internal Medicine 11/23/17 Melanie Gayle DO [address] [place] [address] Pulmonary Disease 03/15/23 It Infrastructure Project Manager Relationship Specialty Start Date End Date Tab Barfield DO [address] [place] [address] PCP - General Internal Medicine 11/23/17 Melanie Gayle DO [address] [place] [address] Pulmonary Disease 03/15/23 Team Status: Inactive Member Role Status Dates Tab Barfield DO Primary Care Provider Active Start: April 28, 2025 End: April 28, 2025 Tab Barfield DO Attending Provider Active Sta rt: April 28, 2025 End: April 28, 2025 It Infrastructure Project Manager Relationship Specialty Start Date End Date Tab Barfield DO [address] [place] [address] PCP - General Internal Medicine 11/23/17 Melanie Gayle DO [address] [place] [address] Pulmonary Disease 03/15/23 (unrecognized sect ion and content) No Status Records FoundNo Status Records FoundNo Status Records FoundNo Status Records Found INFORMATION SOURCE (unrecogn ized section and content) DATE CREATED AUTHOR 12/27/2022 [facility] DATE CREATED AUTHOR AUTHOR'S ORGANIZ ATION 07/03/2023 [facility] DATE CREATED AUTHOR AUTHOR'S ORGANIZ ATION 03/27/[address] [facility] DATE CREATED AUTHOR AUTHOR'S ORGANIZ ATION 04/30/2025 [facility] Goals (unrecognized section and content) Goals [...] BE BASED ON THE PRIMARY CLINICAL RECORDS. [employer] provides no warranty or guarantee of the accuracy or completeness of information in this document.
--- NOTE | 2025-05-06 11:50 | PC.NURSE ---
Nursing Note Cardiac Stress Test Reviewed: Medication, allergies and patient history reviewed. Stress Test: [x ]? Patient tolerated stress test well. [ ]? Patient unable to tolerate walking on treadmill. Switched to Lexiscan stress test. [ x]? No chest pain noted per patient [ ]? Chest pain that resolved prior to leaving stress lab. [ ]? No dyspnea noted. [ x]? Dyspnea that resolved prior to leaving stress lab. [ x]? Patient left stress lab asymptomatic and hemodynamically stable. [ ]? Patient taken to the Emergency Room due to non-resolving symptoms following stress test. [x ]? Patient achieved target heart rate. [ ]? Patient unable to achieve target heart rate. [ ]? Aminophylline administered as reversal agent to Lexiscan (Regadenoson). [ ]? Nitro administered. Nursing Comments: Test explained, consent signed, pt declined further questions. Pt became short of breath with audible wheezing and fatigued. Pt declined chest pain. Test stopped once target HR achieved and Cardiolite injected. Pt's shortness of breath and wheezing resolved within 3 minutes of recovery. Pt ambulated to [facility] and denied other questions or symptoms and verbalized that all symptoms resolved.
--- NOTE | 2025-05-06 12:49 | PM.STRESS ---
Stress Test Stress Test Requesting physician: Tab Barfield Procedure: Nuclear exercise stress test General Information: Reason for Stress Test: Shortness of breath Cardiac History and Risk Factors: Hypertension hyperlipidemia diabetes mellitus COPD Resting 12 - Lead Electrocardiogram: Sinus rhythm with normal intervals normal R wave progression Stress Test: Resting 12 - Lead Electrocardiogram: Sinus rhythm with normal intervals and normal R wave progression Stress Test: Protocol: Brooks protocol Exercise Capacity: 1 minutes 53 seconds achieving stage 1 and maximum METS of 4.6 Blood Pressure Response: Baseline blood pressure of 148/78 mmHg heart rate of 60 beats per minute to a maximum of 222/98mmHg heart rate of 123 bpm achieving 86% of expected. Blood pressure response was normal heart rate recovery also was normal with no evidence of chronotropic incompetence Rhythm: Sinus ST - Response: No significant ST changes noted suggestive of ischemia in the short duration of exercise noted Patient Response: None Interpretation: 1. No EKG evidence of ischemia noted with stress test 2. Normal blood pressure response and heart rate recovery noted with a Benavides treadmill score -10 to % which predicts medium risk for adverse cardiac events 3. Fair functional capacity noted on treadmill stress test 4. Nuclear portion of the study to be dictated separately Jaiden Cuadra MD
== END 2025-05-06 10:28 | disposition home or self-care (01) ==
LOC: NM 10:27
PROVIDERS: PCP Internal Medicine; Visit Provider Internal Medicine
DX: R07.9 Chest pain, unspecified (principal); R06.00 Dyspnea, unspecified
CPT/HCPCS: 78452; 93017; A9500